=== PATIENT | male | born 1950 | race Caucasian/White ===

== ENCOUNTER 2020-02-23 09:57 | Outpatient (REF) | payer MEDICARE, OTHER, SELFPAY ==
[2020-02-23 11:42] LABS: Alanine Aminotransferase 19 U/L (0-40); Albumin Level 4.1 g/dL (3.5-5.0); Alkaline Phosphatase 89 U/L (39-117); Anion Gap 12 (12-20); Aspartate Amino Transferase 19 U/L (5-37); Bilirubin Total 0.6 mg/dL (0.0-1.0); Blood Urea Nitrogen 14 mg/dL (9-16); Calcium 8.7 mg/dL (8.4-10.2); Carbon Dioxide 31 mmol/L (22-29); Chloride 100 mmol/L (96-108); Cholesterol 151 mg/dL; Estimated Glomerular Filt Rate > 60; Glucose Fasting 89 mg/dL (60-99); HDL Cholesterol 55 mg/dL; LDL Cholesterol Calculated 73 mg/dl; Potassium 4.3 mmol/l (3.3-5.1); Sodium 139 mmol/L (135-145); Triglycerides 116 mg/dL
[2020-02-23 11:51] LABS: Prostate Specific Antigen Scr 0.46 ng/mL (<0.05-4.0); TSH reflex Free T4 1.28 mIU/mL (0.32-4.0)
== END 2020-02-23 09:58 | disposition home or self-care (01) ==
LOC: HO.HMGCLDS 09:57
PROVIDERS: PCP Nurse Practitioner Family; Visit Provider Nurse Practitioner Family
DX: Z12.5 Encounter for screening for malignant neoplasm of prostate (principal); I10 Essential (primary) hypertension; E78.5 Hyperlipidemia, unspecified
CPT/HCPCS: 80053; 80061; 84153; 84443

== ENCOUNTER 2020-03-28 13:18 | Outpatient (REF) | payer MEDICARE, OTHER, SELFPAY ==
[2020-03-28 14:24] LABS: Alanine Aminotransferase 17 U/L (0-40); Albumin Level 4.2 g/dL (3.5-5.0); Alkaline Phosphatase 79 U/L (39-117); Anion Gap 17 (12-20); Aspartate Amino Transferase 18 U/L (5-37); Bilirubin Total 0.5 mg/dL (0.0-1.0); Blood Urea Nitrogen 17 mg/dL (9-16); Calcium 9.2 mg/dL (8.4-10.2); Carbon Dioxide 25 mmol/L (22-29); Chloride 101 mmol/L (96-108); Estimated Glomerular Filt Rate > 60; Glucose Random 101 mg/dL (60-115); Potassium 4.2 mmol/l (3.3-5.1); Sodium 139 mmol/L (135-145); Total Protein 7.4 g/dL (6.5-8.0)
== END 2020-03-28 13:19 | disposition home or self-care (01) ==
LOC: HO.HMGCLDS 13:18
PROVIDERS: PCP Nurse Practitioner Family; Visit Provider Nurse Practitioner Family
DX: I10 Essential (primary) hypertension (principal); R79.89 Other specified abnormal findings of blood chemistry
CPT/HCPCS: 80053

== ENCOUNTER → 2020-11-19 08:23 | Outpatient (BNVA) | payer MEDICARE, OTHER, SELFPAY | PROVIDERS: PCP Nurse Practitioner Family; Visit Provider Nurse Practitioner Family | DX: G47.33 Obstructive sleep apnea (adult) (pediatric) (principal); Z99.89 Dependence on other enabling machines and devices | CPT/HCPCS: Q3014 ==

== ENCOUNTER 2020-11-20 15:25 | Emergency (ER) | payer MEDICARE, OTHER, SELFPAY ==
--- NOTE | ~2020-11-20 | XR_ITS ---
EXAMINATION: XR CHEST CLINICAL INFORMATION: Presyncope. COMPARISON: Chest x-ray August 01, 2019 TECHNIQUE: Frontal view of the chest was obtained. 11:34 PM FINDINGS: Lungs are clear. No pulmonary vascular congestion. There is no pleural effusion. The heart size is normal. The cardiac and mediastinal contours are normal. Levoscoliosis of upper thoracic spine. There are multilevel degenerative changes of dorsal spine. XR/XR chest 1V IMPRESSION: No acute abnormality of the chest.
--- NOTE | ~2020-11-20 | CT_ITS ---
EXAMINATION: CT ABDOMEN AND PELVIS WITHOUT CONTRAST CLINICAL INFORMATION: Diarrhea with history of Crohn's disease COMPARISON: 08/01/2019 TECHNIQUE: Multidetector volumetric imaging was performed from the superior aspect of the liver through the pubic symphysis. Sagittal and coronal reformatted images were obtained on the technologist's workstation. This CT examination was performed using dose optimization techniques as appropriate, variously including the following: *Automated exposure control *Adjustment of mA and/or kV according to patient size (this includes techniques or standardized protocols for targeted exams where dose is matched to indication/reason for exam; i.e. extremities or head) *Use of iterative reconstruction technique DLP: 827 mGy-cm FINDINGS: LUNG BASES: The visualized lung bases are unremarkable. LIVER, GALLBLADDER, AND BILIARY TREE: The liver is normal in size, shape, and attenuation. No focal hepatic lesion or biliary ductal dilatation is present. Status post cholecystectomy PANCREAS: Unremarkable. SPLEEN: Unremarkable. ADRENAL GLANDS: Unremarkable. KIDNEYS AND URETERS: Once again areas of low attenuation likely representing cystic change. BLADDER: Unremarkable. GASTROINTESTINAL TRACT: Diverticulosis in the colon. No evidence for diverticulitis. The appendix is within normal limits. The bowel pattern is nonobstructing. No evidence for edematous change. No suspicious fluid collection. ABDOMINAL WALL: No significant hernia is appreciated. LYMPH NODES: Normal. VASCULAR: Unremarkable. PELVIC VISCERA: Unremarkable. OSSEOUS STRUCTURES: Some mixed lucent sclerotic change in the femoral head on the right. Element of osteonecrosis would need to be considered versus degenerative cystic change. CT/CT abdomen pelvis wo con IMPRESSION: There is no acute finding in the abdomen pelvis. The bowel pattern is felt to be nonobstructing. There is no free fluid.. No convincing evidence for edematous bowel.
[2020-11-20 15:39] VITALS: BP 116/56; BP 118/56; PULSE 76; PULSE 78; RESP 18; TEMP 36.9; O2SAT 100; BMI 48.2
--- NOTE | 2020-11-20 16:29 | ED_ITS ---
HPI - Nausea/Vomiting/Diarrhea General Chief complaint: Nausea/Vomiting/Diarrhea Stated complaint: faint/nausea Time Seen by Provider: 11/20/20 15:36 Source: patient Mode of arrival: ambulatory Limitations: no limitations History of Present Illness HPI Narrative: Patient is a 70-year-old male with a past medical history of hypertension, PVD, Crohn's, iron deficiency, HLD, depression and a periodical limb movement disorder complaining of feeling faint, nausea and diarrhea. Patient does take balsalazide at home for his Crohn's, he states he is supposed to take 9 tablets per day but because the medication is so expensive he is only able to take half of that amount and he takes 4 tablets per day. He states that it has worked for him in the past. He states he has been eating and drinking and taking all of his normal medications up until today. He states approximately 4 hours ago, he was at the car repair shop any felt faint. They gave him a ride home and he felt very nauseous and sane to the whole way but made it home. He states he never lost consciousness but he has felt faint and sweaty and nauseous. He denies having any episodes of vomiting but states he had 1 episode of watery mucousy diarrhea this morning. He denies fevers chest pain shortness of breath or cough. He also takes Lasix daily. Related Data Home Medications Medication Instructions Recorded Confirmed balsalazide 750 mg capsule mg PO 02/26/20 11/19/20 bupropion HCl 150 mg 24 hr tablet, 150 mg PO BEDTIME 02/26/20 11/19/20 extended release fluoxetine 40 mg capsule mg PO 02/26/20 11/19/20 rosuvastatin 5 mg tablet 5 mg PO DAILY 02/26/20 11/19/20 Previous Rx's Medication Instructions Recorded hydrochlorothiazide 25 mg tablet 25 mg PO QAM #90 tab 06/24/20 tamsulosin 0.4 mg capsule 0.4 mg PO BID #180 cap 11/13/20 Allergies Allergy/AdvReac Type Severity Reaction Status Date / Time No Known Allergies Allergy Verified 11/19/20 08:25 [No Known Allergies*] oatmeal Allergy Unknown hives Uncoded 11/27/19 00:00 Review of Systems Review of Systems: Yes all other systems are reviewed and are negative PMFSH Past Medical History Medical History Crohn's disease Depression Dyslipidemia HTN (hypertension) Iron deficiency Left anterior fascicular block (LAFB) PLMD (periodic limb movement disorder) PVD (peripheral vascular disease) Venous insufficiency of both lower extremities Vertebral compression fracture Surgical History Status post endovenous radiofrequency ablation (RFA) of saphenous vein Family History Family History Father Cancer of prostate Mother Anxiety Sister Breast cancer Sister Nephritis Sister No problems noted. Sister No problems noted. Sister No problems noted. Daughter No problems noted. Daughter No problems noted. Daughter No problems noted. Brother No problems noted. Brother No problems noted. Brother Epilepsy Social History Social History Alcohol intake: never Advance Directives: No Advance Directives Information Provided: Yes Physical Exam Vital Signs: Vital Signs: Last Vital Signs Temp 98.3 F 11/20/20 22:51 Pulse 62 11/21/20 00:00 Resp 15 11/21/20 00:00 BP 93/37 L 11/21/20 00:00 Pulse Ox 98 11/21/20 00:00 Body Mass Index 48.2 Const: General: cooperative, healthy appearing, comfortable, no acute distress and well developed Nutritional Appearance: obese Orientation/consciousness: patient oriented x3 Limitations: no limitations HENMT: Head: Yes normal to inspection, Yes normocephalic and Yes atraumatic Ears: hearing grossly normal bilaterally General nose exam: Normal external nose present Face and sinus: Yes normal facial exam Eyes: General: appearance normal, both eyes and all related structures Pu pils: Equal, round and reactive pupils present EOM: EOMs intact bilaterally Neck: Neck: Yes normal visual inspection, Yes full ROM, Yes trachea midline and Yes supple Resp: Effort & Inspection: normal respiratory effort and able to speak in complete sentences Auscultation: clear to auscultation bilaterally Cardio: Rate: regular rate Rhythm: regular rhythm Heart sounds: normal S1 and S2 GI: Inspection: Yes obesity Palpation (GI): Soft to palpation and nontender Auscultation: Hyperactive bowel sounds present Skin: General skin exam: no rashes or lesions noted Neuro: General: patient oriented x3 Cranial nerves: Yes Equal, round and reactive pupils present Extrem: General: Yes normal to inspection, Yes full ROM and Yes no pedal edema Course Course Course Narrative: Patient is a 70-year-old male with a past medical history of hypertension, PVD, Crohn's, iron deficiency, HLD, depression and a periodical limb movement disorder complaining of feeling faint, nausea and diarrhea. VSS, patient well-appearing, abdomen slightly tender diffusely. Will order EKG, labs, troponin, BNP, UA, CXR and abdominal CT scan because of his history of Crohn's. Reevaluation(s) Reevaluation #1: Spoke with Dr. Olvera, reviewed results, T-wave inversions on EKG, patient was also bradycardic. T-wave inversions were present on patient's EKG in July of 2019. Our plan is to put patient on property assessment monitor and repeat troponin and EKG 3 hours from the original troponin. Discussed with patient and nurse. Patient now actively vomiting, BNP is just slightly elevated will give 1 L LR. Time: 19:00 Reevaluation #2: Second EKG similar to the 1st, 2nd troponin not elevated. Patient unable to complete orthostatics because he is unable to stand up due to his feeling faint and weak. Left message with hospitalist for admission Time: 22:30 Reevaluation #3: Patient states he is feeling slightly better after the IVF but unable to stand steadily or walk. Will continue LR on a drip at 01:50 per hour. Spoke with hospitalist, he states there is no reason for admission and he would be a case management patient. Time: 23:32 MDM - Nausea/Vomiting/Diarrhea Differential Diagnosis Differential diagnosis: Likely dehydration Lab Data Attestation: I reviewed the patient's lab results. Result diagrams: 11/20/20 17:02 11/20/20 17:02 Labs: Lab Results 11/20/20 11/20/20 11/20/20 Range/Units 16:49 17:02 17:02 WBC 8.4 (4.8-10.8) X10*3/uL RBC 4.28 L (4.60-5.80) X10*6/uL Hgb 13.1 L (14.0-18.0) g/dl Hct 38.6 L (42-52) % MCV 90.2 (80-98) fL MCH 30.6 (27.0-33.0) pg MCHC 33.9 (31.0-36.0) g/dl RDW 14.1 (11.0-16.0) % Plt Count 250 (160-400) X10*3/uL MPV 9.0 L (9.4-12.4) fL Immature Gran % (Auto) 0.6 H (0.0-0.4) % Neut % (Auto) 77.4 H (45-73) % Lymph % (Auto) 12.4 L (20-40) % Dewitt % (Auto) 7.2 (2-11) % Eos % (Auto) 1.7 (0-4) % Baso % (Auto) 0.7 (0-2) % Lymph # (Auto) 1.0 L (1.2-4.9) X10*3/uL Dewitt # (Auto) 0.6 (0.1-1.2) X10*3/uL Eos # (Auto) 0.1 (0.0-0.4) X10*3/uL Baso # (Auto) 0.1 (0.0-0.2) X10*3/uL Abs Immat Gran (auto) 0.05 H (0.00-0.03) X10*3/uL Absolute Neuts (auto) 6.5 (2.0-8.3) X10*3/uL Absolute Nucleated RBC 0.000 (0.0-0.012) X10*3/uL Nucleated RBC % (auto) 0.0 (0.0-0.2) /100WBC Sodium 139 (135-145) mmol/L Potassium 3.6 (3.3-5.1) mmol/L Chloride 105 (96-108) mmol/L Carbon Dioxide 23 (22-29) mmol/L Anion Gap 15 (12-20) BUN 12 (9-16) mg/dL Creatinine 0.87 (0.5-1.4) mg/dL Estim Creat Clear Calc 117.2 Estimated GFR > 60 Random Glucose 107 (60-115) mg/dL Calcium 9.1 (8.4-10.2) mg/dL Total Bilirubin 0.8 (0.0-1.0) mg/dL Direct Bilirubin 0.3 (0.0-0.5) mg/dL AST 21 (5-37) U/L ALT 20 (0-40) U/L Alkaline Phosphatase 78 (39-117) U/L Troponin I High Sens (<3.5-35.0) ng/L B-Natriuretic Peptide (<100) pg/mL Total Protein 6.8 (6.5-8.0) g/dL Albumin 3.9 (3.5-5.0) g/dL Lipase 27 (8-78) U/L Urine Color YELLOW Urine Appearance CLEAR Urine pH 8.5 H (5.0-8.0) Ur Specific Waterman 1.015 (1.005-1.025) Urine Protein NEG (NEG-TRACE) MG/DL Urine Glucose (UA) NEG (NEG) MG/DL Urine Ketones 15 (NEG) MG/DL Urine Blood NEG (NEG) Urine Nitrite NEG (NEG) Ur Leukocyte Esterase NEG (NEG) COVID-19 (SUPRIYA) (Negative) COVID-19 Clin Com 11/20/20 11/20/20 11/20/20 Range/Units 17:03 18:37 21:38 WBC (4.8-10.8) X10*3/uL RBC (4.60-5.80) X10*6/uL Hgb (14.0-18.0) g/dl Hct (42-52) % MCV (80-98) fL MCH (27.0-33.0) pg MCHC (31.0-36.0) g/dl RDW (11.0-16.0) % Plt Count (160-400) X10*3/uL MPV (9.4-12.4) fL Immature Gran % (Auto) (0.0-0.4) % Neut % (Auto) (45-73) % Lymph % (Auto) (20-40) % Dewitt % (Auto) (2-11) % Eos % (Auto) (0-4) % Baso % (Auto) (0-2) % Lymph # (Auto) (1.2-4.9) X10*3/uL Dewitt # (Auto) (0.1-1.2) X10*3/uL Eos # (Auto) (0.0-0.4) X10*3/uL Baso # (Auto) (0.0-0.2) X10*3/uL Abs Immat Gran (auto) (0.00-0.03) X10*3/uL Absolute Neuts (auto) (2.0-8.3) X10*3/uL Absolute Nucleated RBC (0.0-0.012) X10*3/uL Nucleated RBC % (auto) (0.0-0.2) /100WBC Sodium (135-145) mmol/L Potassium (3.3-5.1) mmol/L Chloride (96-108) mmol/L Carbon Dioxide (22-29) mmol/L Anion Gap (12-20) BUN (9-16) mg/dL Creatinine (0.5-1.4) mg/dL Estim Creat Clear Calc Estimated GFR Random Glucose (60-115) mg/dL Calcium (8.4-10.2) mg/dL Total Bilirubin (0.0-1.0) mg/dL Direct Bilirubin (0.0-0.5) mg/dL AST (5-37) U/L ALT (0-40) U/L Alkaline Phosphatase (39-117) U/L Troponin I High Sens < 3.5 4.0 (<3.5-35.0) ng/L B-Natriuretic Peptide 144 H (<100) pg/mL Total Protein (6.5-8.0) g/dL Albumin (3.5-5.0) g/dL Lipase (8-78) U/L Urine Color Urine Appearance Urine pH (5.0-8.0) Ur Specific Waterman (1.005-1.025) Urine Protein (NEG-TRACE) MG/DL Urine Glucose (UA) (NEG) MG/DL Urine Ketones (NEG) MG/DL Urine Blood (NEG) Urine Nitrite (NEG) Ur Leukocyte Esterase (NEG) COVID-19 (SUPRIYA) Negative (Negative) COVID-19 Clin Com See Note Imaging Data Abdominal x-ray: Attestation: I personally reviewed and interpreted this imaging study as follows: Radiologist's impression: [address] [address] [address] Scan Report Signed Patient: Jonah Bond MR#: [id number] : 1950 Acct:[id number] Age/Sex: 70 / M ADM Date: 11/20/20 Loc: HO.ED Attending Dr: Ordering Physician: Charity Lemon PA-C Date of Service: 11/20/20 Procedure(s): CT abdomen pelvis wo con Accession Number(s): [id number] cc: Charity Lemon PA-C~ EXAMINATION: CT ABDOMEN AND PELVIS WITHOUT CONTRAST? CLINICAL INFORMATION: Diarrhea with history of Crohn's disease? COMPARISON: 08/01/2019? TECHNIQUE: Multidetector volumetric imaging was performed from the superior aspect of the liver through the pubic symphysis. Sagittal and coronal reformatted images were obtained on the technologist's workstation.? This CT examination was performed using dose optimization techniques as appropriate, variously including the following: *Automated exposure control *Adjustment of mA and/or kV according to patient size (this includes techniques or standardized protocols for targeted exams where dose is matched to indication/reason for exam; i.e. extremities or head) *Use of iterative reconstruction technique DLP: 827 mGy-cm FINDINGS: LUNG BASES: The visualized lung bases are unremarkable.? LIVER, GALLBLADDER, AND BILIARY TREE: The liver is normal in size, shape, and attenuation. No focal hepatic lesion or biliary ductal dilatation is present. Status post cholecystectomy? PANCREAS: Unremarkable.? SPLEEN: Unremarkable.? ADRENAL GLANDS: Unremarkable.? KIDNEYS AND URETERS: Once again areas of low attenuation likely representing cystic change.? BLADDER: Unremarkable.? GASTROINTESTINAL TRACT: Diverticulosis in the colon. No evidence for diverticulitis. The appendix is within normal limits. The bowel pattern is nonobstructing. No evidence for edematous change. No suspicious fluid collection.? ABDOMINAL WALL: No significant hernia is appreciated.? LYMPH NODES: Normal. VASCULAR: Unremarkable. PELVIC VISCERA: Unremarkable.? OSSEOUS STRUCTURES: Some mixed lucent sclerotic change in the femoral head on the right. Element of osteonecrosis would need to be considered versus degenerative cystic change.? CT/CT abdomen pelvis wo con IMPRESSION: There is no acute finding in the abdomen pelvis. The bowel pattern is felt to be nonobstructing. There is no free fluid.. No convincing evidence for edematous bowel. Dictated By: LAZARO JACINTO MD Signed By: <Electronically signed by LAZARO JACINTO MD in OV> 11/20/20 1837 DD/ 1641 TD/TT:? Show Worker: ANI Chest x-ray: Attestation: I personally reviewed and interpreted this imaging study as follows: My impression: No acute abnormality Radiologist's impression: [address] [place] [address] XRay Report Signed Patient: Jonah Bond MR#: [id number] : 1950 Acct:[id number] Age/Sex: 70 / M ADM Date: 11/20/20 Loc: HO.ED Attending Dr: Ordering Physician: Charity Lemon PA-C Date of Service: 11/20/20 Procedure(s): XR chest 1V Accession Number(s): [id number] cc: Charity Lemon PA-C~ EXAMINATION: XR CHEST CLINICAL INFORMATION: Presyncope. COMPARISON: Chest x-ray August 01, 2019 TECHNIQUE: Frontal view of the chest was obtained. 11:34 PM FINDINGS: ?Lungs are clear. No pulmonary vascular congestion. There is no pleural effusion. The heart size is normal. The cardiac and mediastinal contours are normal. Levoscoliosis of upper thoracic spine. There are multilevel degenerative changes of dorsal spine.? ? XR/XR chest 1V IMPRESSION: No acute abnormality of the chest. ? Dictated By: EHSAN YORK MD Signed By: <Electronically signed by EHSAN YORK MD in OV> 11/20/20 2355 DD/ 2330 ECG Data Attestation: I personally reviewed and interpreted this ECG as follows: Ischemic changes: t wave inversions Interpretation: Sinus bradycardia Left axis deviation ST & T wave abnormality, consider lateral ischemia Prolonged QT Abnormal ECG When compared with ECG of 01-AUG-2019 14:13, Inverted T waves have replaced nonspecific T wave abnormality in Anterior leads ? Discharge Plan Discharge Clinical Impression: Pre-syncope, Unable to stand up Nausea & vomiting Qualifiers: Vomiting type: unspecified Vomiting Intractability: non-intractable Qualified Code(s): R11.2 - Nausea with vomiting, unspecified Patient Disposition: Home, Self-Care Prescriptions: No Action hydrochlorothiazide 25 mg tablet 25 mg PO QAM Qty: 90 RF: 0 tamsulosin 0.4 mg capsule 0.4 mg PO BID Qty: 180 RF: 0 bupropion HCl 150 mg tablet extended release 24 hr 150 mg PO BEDTIME RF: 0 rosuvastatin 5 mg tablet 5 mg PO DAILY RF: 0 fluoxetine 40 mg capsule PO RF: 0 balsalazide 750 mg capsule PO RF: 0
--- NOTE | 2020-11-20 16:41 | ECG_ITS ---
Test Reason : DIZZY Blood Pressure : / mmHG Vent. Rate : 055 BPM Atrial Rate : 055 BPM P-R Int : 164 ms QRS Dur : 102 ms QT Int : 508 ms P-R-T Axes : 051 -44 221 degrees QTc Int : 485 ms Sinus bradycardia Left axis deviation ST & T wave abnormality, consider lateral ischemia Prolonged QT Abnormal ECG When compared with ECG of 01-AUG-2019 14:13, Inverted T waves have replaced nonspecific T wave abnormality in Anterior leads Referred By: Charity Lemon Electronically Signed By:ELIO THOMAS
[2020-11-20 17:01] LABS: Glucose Urine UA NEG (NEG); Leukocyte Esterase Urine NEG (NEG); Nitrite Urine NEG (NEG); PH 8.5 (5.0-8.0); Specific Gravity - Urine 1.015 (1.005-1.025); Urine Blood NEG (NEG); Urine Ketones 15 MG/DL (NEG); Urine Protein NEG (NEG-TRACE)
[2020-11-20 17:02] LABS: Appearance Urine CLEAR; Color Urine YELLOW
[2020-11-20 17:08] LABS: MANUAL DIFF FLAG NO
[2020-11-20 17:09] LABS: Basophils Absolute Auto 0.1 X10*3/uL (0.0-0.2); Basophils Percent Auto 0.7 % (0-2); Eosinophils Absolute Auto 0.1 X10*3/uL (0.0-0.4); Eosinophils Percent Auto 1.7 % (0-4); Hematocrit 38.6 % (42-52); Hemoglobin 13.1 g/dl (14.0-18.0); Imm Gran Abs Auto 0.05 X10*3/uL (0.00-0.03); Imm Gran Pct Auto 0.6 % (0.0-0.4); Lymphocytes Percent Auto 12.4 % (20-40); Mean Corpuscular HGB Conc 33.9 g/dl (31.0-36.0); Mean Corpuscular Hemoglobin 30.6 pg (27.0-33.0); Mean Corpuscular Volume 90.2 fL (80-98); Monocytes Absolute Auto 0.6 X10*3/uL (0.1-1.2); Monocytes Percent Auto 7.2 % (2-11); Neutrophils Absolute Auto 6.5 X10*3/uL (2.0-8.3); Neutrophils Percent Auto 77.4 % (45-73); Platelet Count 250 X10*3/uL (160-400); Red Blood Count 4.28 X10*6/uL (4.60-5.80); Red Cell Distribution Width 14.1 % (11.0-16.0); White Blood Count 8.4 X10*3/uL (4.8-10.8)
[2020-11-20 17:41] LABS: Alanine Aminotransferase 20 U/L (0-40); Albumin Level 3.9 g/dL (3.5-5.0); Alkaline Phosphatase 78 U/L (39-117); Anion Gap 15 (12-20); Aspartate Amino Transferase 21 U/L (5-37); Bilirubin Direct 0.3 mg/dL (0.0-0.5); Bilirubin Total 0.8 mg/dL (0.0-1.0); Blood Urea Nitrogen 12 mg/dL (9-16); Calcium 9.1 mg/dL (8.4-10.2); Carbon Dioxide 23 mmol/L (22-29); Chloride 105 mmol/L (96-108); Creatinine Clr Calc Pharmacy 117.2; Estimated Glomerular Filt Rate > 60; Glucose Random 107 mg/dL (60-115); Lipase 27 U/L (8-78); Potassium 3.6 mmol/L (3.3-5.1); Sodium 139 mmol/L (135-145); Total Protein 6.8 g/dL (6.5-8.0)
[2020-11-20 17:48] LABS: B Type Natriuretic Peptide 144 pg/mL (<100); Troponin-I High Sensitivity < 3.5 ng/L (<3.5-35.0)
[2020-11-20 19:01] LABS: COVID-19 Test Negative (Negative)
[2020-11-20 19:33] VITALS: BP 101/50; PULSE 66
[2020-11-20 19:34] VITALS: BP 110/56; PULSE 82
[2020-11-20 20:00] VITALS: BP 112/72; PULSE 82; RESP 18; TEMP 36.9; O2SAT 100
--- NOTE | 2020-11-20 20:00 | ECG_ITS ---
Test Reason : GENERAL MEDICAL Blood Pressure : / mmHG Vent. Rate : 059 BPM Atrial Rate : 059 BPM P-R Int : 172 ms QRS Dur : 102 ms QT Int : 486 ms P-R-T Axes : 050 -36 185 degrees QTc Int : 481 ms Sinus bradycardia Left axis deviation ST & T wave abnormality, consider anterolateral ischemia Prolonged QT Abnormal ECG When compared with ECG of 20-NOV-2020 17:17, No significant change was found Referred By: Charity Lemon Electronically Signed By:ELIO THOMAS
--- NOTE | 2020-11-20 21:09 | PC.NURSE ---
EMS line changed over to hospital j loop without incident.
[2020-11-20 21:25] VITALS: BP 116/55; PULSE 59; RESP 8; TEMP 36.6; O2SAT 96
[2020-11-20 22:51] VITALS: BP 110/53; PULSE 58; RESP 9; TEMP 36.8; O2SAT 97
[2020-11-20] MEDS: Lactated Ringers 1,000 ML 999 ML IV (22:57)
[2020-11-21] VITALS (9 sets, daily range): BP systolic 93–114; BP diastolic 37–47; PULSE 60–69; RESP 12–17; TEMP 36.3–36.9; O2SAT 94–98
[2020-11-21] MEDS: Lactated Ringers 1,000 ML 150 ML IVCONT (00:27)
--- NOTE | 2020-11-21 06:37 | PC.NURSE ---
Patient walked with staff to the bathroom to use it. When he had finished, he pulled the cord because he became dizzy again. Patient able to walk back to his room with staff assistance and transferred to bed but reported he was still dizzy and nauseous.. Patient to meet with case management this morning.
--- NOTE | 2020-11-21 09:21 | PHA.MEDREC ---
Pharmacy Consult ? Medication Reconciliation Pharmacy has completed the medication reconciliation. Patient takes all medications in the morning with breakfast and all vitamins at dinner. Reports he get heartburn if he takes without food. Patient is not adherent to medication and does not take them as prescribed. These are the main issues: Balsalizide: prescribed as 750mg 3 cap TID but takes 750mg 4 cap in the AM (reports it is too expensive to take all 9 capsules) Tamsulosin: prescribed 0.4mg BID but takes 0.8mg QAPhan Boss, PharmD
--- NOTE | 2020-11-21 09:36 | PC.NURSE ---
PT STATES HE CONTINUES TO FEEL NAUSEATED AND WEAK. AWAITING PT EVAL
[2020-11-21] MEDS: Meclizine HCl 25 MG TABLET PO (10:18)
--- NOTE | 2020-11-21 10:25 | PC.NURSE ---
PT MEDICATED FOR DIZZINESS. HE WAS ABLE TO AMBULATE WITH A WALKER AND STAND BY ASSIST.
--- NOTE | 2020-11-21 12:17 | MHC.CM.ED ---
pt lives c his in their home, he reports that he is independent in his care . his can help him c his needs if he has any . this will include a ride home from the e.d. today. per PT eval - patient would benefit from home PT. a ref. per pt's request was made to [facility] for home PT. pt was accepted and they will see him in his home. dc plan is home c [facility]na for home PT. patient is aware of this . r.n. and provider in the e.d. are aware of this . cm to cont. to follow.
== END 2020-11-21 17:07 | disposition home or self-care (01) ==
PROVIDERS: Physician Assistant; Emergency Provider Internal Medicine; PCP Nurse Practitioner Family
DX: R55 Syncope and collapse (principal); I10 Essential (primary) hypertension; R11.2 Nausea with vomiting, unspecified; R19.7 Diarrhea, unspecified; R06.02 Shortness of breath; Z20.822 Contact with and (suspected) exposure to COVID-19; Z79.899 Other long term (current) drug therapy
CPT/HCPCS: 36415; 71045; 74176; 80048; 80076; 81003; 83690; 83880; 84484; 85025; 87635; 93005; 96361; 96374; 97162; 99284; 99285

== ENCOUNTER 2021-07-18 08:29 | Outpatient (REF) | payer MEDICARE, OTHER, SELFPAY ==
[2021-07-18 11:27] LABS: MANUAL DIFF FLAG NO
[2021-07-18 11:32] LABS: Basophils Absolute Auto 0.1 X10*3/uL (0.0-0.2); Basophils Percent Auto 1.4 % (0-2); Eosinophils Absolute Auto 0.4 X10*3/uL (0.0-0.4); Eosinophils Percent Auto 6.5 % (0-4); Hematocrit 39.1 % (42.0-52.0); Hemoglobin 12.8 g/dl (14.0-18.0); Imm Gran Abs Auto 0.02 X10*3/uL (0.00-0.03); Imm Gran Pct Auto 0.4 % (0.0-0.4); Lymphocytes Absolute Auto 1.8 X10*3/uL (1.2-4.9); Lymphocytes Percent Auto 31.2 % (20-40); Mean Corpuscular HGB Conc 32.7 g/dl (31.0-36.0); Mean Corpuscular Hemoglobin 30.6 pg (27.0-33.0); Mean Corpuscular Volume 93.5 fL (80.0-98.0); Mean Platelet Volume 9.6 fL (9.4-12.4); Monocytes Absolute Auto 0.5 X10*3/uL (0.1-1.2); Monocytes Percent Auto 8.4 % (2-11); Neutrophils Percent Auto 52.1 % (45-73); Platelet Count 292 X10*3/uL (160-400); Red Blood Count 4.18 X10*6/uL (4.60-5.80); White Blood Count 5.7 X10*3/uL (4.8-10.8)
[2021-07-18 12:13] LABS: Anion Gap 9 (12-20); Blood Urea Nitrogen 17 mg/dL (9-16); Calcium 9.8 mg/dL (8.4-10.2); Carbon Dioxide 32 mmol/L (22-29); Chloride 103 mmol/L (96-108); Estimated Glomerular Filt Rate > 60; Glucose Random 112 mg/dL (60-115); Potassium 4.1 mmol/L (3.3-5.1); Sodium 140 mmol/L (135-145)
== END 2021-07-18 08:30 | disposition home or self-care (01) ==
LOC: HO.HMGCLDS 08:29
PROVIDERS: Visit Provider Nurse Practitioner Family
DX: I10 Essential (primary) hypertension (principal); K50.10 Crohn's disease of large intestine without complications; M54.50 Low back pain, unspecified
CPT/HCPCS: 36415; 80048; 85025

== ENCOUNTER 2021-12-24 07:53 | Outpatient (REF) | payer MEDICARE, SELFPAY ==
[2021-12-24 11:23] LABS: MANUAL DIFF FLAG NO
[2021-12-24 11:29] LABS: Basophils Absolute Auto 0.1 X10*3/uL (0.0-0.2); Basophils Percent Auto 1.2 % (0-2); Eosinophils Absolute Auto 0.4 X10*3/uL (0.0-0.4); Eosinophils Percent Auto 7.2 % (0-4); Hematocrit 42.7 % (42.0-52.0); Hemoglobin 13.9 g/dl (14.0-18.0); Imm Gran Abs Auto 0.01 X10*3/uL (0.00-0.03); Imm Gran Pct Auto 0.2 % (0.0-0.4); Lymphocytes Absolute Auto 1.6 X10*3/uL (1.2-4.9); Lymphocytes Percent Auto 31.1 % (20-40); Mean Corpuscular HGB Conc 32.6 g/dl (31.0-36.0); Mean Platelet Volume 9.5 fL (9.4-12.4); Monocytes Absolute Auto 0.5 X10*3/uL (0.1-1.2); Monocytes Percent Auto 10.3 % (2-11); Neutrophils Absolute Auto 2.6 x10*3/uL (2.0-8.3); Platelet Count 292 X10*3/uL (160-400); Red Blood Count 4.64 X10*6/uL (4.60-5.80); Red Cell Distribution Width 14.2 % (11.0-16.0); White Blood Count 5.1 X10*3/uL (4.8-10.8)
[2021-12-24 11:54] LABS: Alanine Aminotransferase 18 U/L (0-40); Albumin Level 4.1 g/dL (3.5-5.0); Alkaline Phosphatase 74 U/L (39-117); Anion Gap 14 (12-20); Aspartate Amino Transferase 21 U/L (5-37); Bilirubin Total 0.5 mg/dL (0.0-1.0); Blood Urea Nitrogen 15 mg/dL (9-16); Calcium 9.5 mg/dL (8.4-10.2); Carbon Dioxide 28 mmol/L (22-29); Chloride 104 mmol/L (96-108); Cholesterol 142 mg/dL; Estimated Glomerular Filt Rate > 60; Glucose Fasting 95 mg/dL (60-99); HDL Cholesterol 56 mg/dL; LDL Cholesterol Calculated 72 mg/dl; Potassium 3.8 mmol/L (3.3-5.1); Sodium 142 mmol/L (135-145); Total Protein 6.9 g/dL (6.5-8.0); Triglycerides 74 mg/dL
[2021-12-24 12:04] LABS: Prostate Specific Antigen Scr 0.36 ng/mL (<0.05-4.0)
[2021-12-24 14:23] LABS: Appearance Urine Clear; Color Urine Yellow; Glucose Urine UA Negative (Negative); Leukocyte Esterase Urine Negative (Negative); Nitrite Urine Negative (Negative); PH 5.5 (5.0-9.0); Urine Blood Negative (Negative); Urine Ketones Negative (Negative); Urine Protein Negative (Neg-Trace)
== END 2021-12-24 07:54 | disposition home or self-care (01) ==
LOC: HO.HMGCLDS 07:53
PROVIDERS: PCP Nurse Practitioner Family; Visit Provider Nurse Practitioner Family
DX: I10 Essential (primary) hypertension (principal); Z12.5 Encounter for screening for malignant neoplasm of prostate; Z13.220 Encounter for screening for lipoid disorders; Z13.29 Encounter for screening for other suspected endocrine disorder
CPT/HCPCS: 36415; 80053; 80061; 81003; 84153; 84443; 85025

== ENCOUNTER 2021-12-31 13:54 | Outpatient (REF) | payer MEDICARE, SELFPAY ==
--- NOTE | ~2021-12-31 | XR_ITS ---
EXAMINATION: 1. RADIOGRAPHS LEFT TIBIA/FIBULAR 2. RADIOGRAPHS LEFT ANKLE 3. RADIOGRAPHS LEFT FOOT CLINICAL INFORMATION: Confusion COMPARISON: No similar prior imaging available for comparison. TECHNIQUE: 2 views of the left tibia/fibula, 3 views of the left ankle and 3 views of the left foot were obtained. FINDINGS: Nondisplaced fracture through the proximal fibula. No fracture of the tibia. Ankle mortise is maintained. Mild soft tissue swelling of the ankle. No gross ankle joint effusion. Bones of the midfoot are well aligned. No tarsal, metatarsal or phalangeal fracture. Mild calcified deformity of the first toe with mild associated degenerative changes of the first MTP joint. Mild degenerative changes of scattered IP joints with partial subluxation of the fifth PIP joint. XR/XR foot LT min 3V IMPRESSION: -Nondisplaced fracture through the proximal left fibula. -Mild soft tissue swelling of the left ankle without fracture. -Mild degenerative changes of the left foot without fracture.
--- NOTE | ~2021-12-31 | XR_ITS ---
EXAMINATION: 1. RADIOGRAPHS LEFT TIBIA/FIBULAR 2. RADIOGRAPHS LEFT ANKLE 3. RADIOGRAPHS LEFT FOOT CLINICAL INFORMATION: Confusion COMPARISON: No similar prior imaging available for comparison. TECHNIQUE: 2 views of the left tibia/fibula, 3 views of the left ankle and 3 views of the left foot were obtained. FINDINGS: Nondisplaced fracture through the proximal fibula. No fracture of the tibia. Ankle mortise is maintained. Mild soft tissue swelling of the ankle. No gross ankle joint effusion. Bones of the midfoot are well aligned. No tarsal, metatarsal or phalangeal fracture. Mild calcified deformity of the first toe with mild associated degenerative changes of the first MTP joint. Mild degenerative changes of scattered IP joints with partial subluxation of the fifth PIP joint. XR/XR tibia fibula LT 2V IMPRESSION: -Nondisplaced fracture through the proximal left fibula. -Mild soft tissue swelling of the left ankle without fracture. -Mild degenerative changes of the left foot without fracture.
--- NOTE | ~2021-12-31 | XR_ITS ---
EXAMINATION: 1. RADIOGRAPHS LEFT TIBIA/FIBULAR 2. RADIOGRAPHS LEFT ANKLE 3. RADIOGRAPHS LEFT FOOT CLINICAL INFORMATION: Confusion COMPARISON: No similar prior imaging available for comparison. TECHNIQUE: 2 views of the left tibia/fibula, 3 views of the left ankle and 3 views of the left foot were obtained. FINDINGS: Nondisplaced fracture through the proximal fibula. No fracture of the tibia. Ankle mortise is maintained. Mild soft tissue swelling of the ankle. No gross ankle joint effusion. Bones of the midfoot are well aligned. No tarsal, metatarsal or phalangeal fracture. Mild calcified deformity of the first toe with mild associated degenerative changes of the first MTP joint. Mild degenerative changes of scattered IP joints with partial subluxation of the fifth PIP joint. XR/XR ankle LT min 3V IMPRESSION: -Nondisplaced fracture through the proximal left fibula. -Mild soft tissue swelling of the left ankle without fracture. -Mild degenerative changes of the left foot without fracture.
== END 2021-12-31 13:55 | disposition home or self-care (01) ==
LOC: HO.HMGCX 13:54
PROVIDERS: PCP Nurse Practitioner Family; Visit Provider Internal Medicine
DX: S80.12XA Contusion of left lower leg, initial encounter (principal); S93.402A Sprain of unspecified ligament of left ankle, initial encounter
CPT/HCPCS: 73590; 73610; 73630; 99202

== ENCOUNTER 2022-01-07 | Outpatient (REF) | payer MEDICARE, SELFPAY ==
--- NOTE | ~2022-01-07 | XR_ITS ---
EXAMINATION: XR TIBIA AND FIBULA, LEFT CLINICAL INFORMATION: Pain left leg. COMPARISON: Left tibia and fibula 12/31/2021 TECHNIQUE: AP and lateral views of the left tibia and fibula were obtained. FINDINGS: There is an oblique fracture proximal fibula with minimal displacement. No additional fracture seen. The soft tissues are normal. XR/XR tibia fibula LT 2V IMPRESSION: Minimally displaced oblique fracture left proximal fibula. No additional fractures seen. No major change.
== END 2022-01-07 00:01 | disposition home or self-care (01) ==
LOC: HO.HOSX
PROVIDERS: Visit Provider Physician Assistant
DX: S82.832D Other fracture of upper and lower end of left fibula, subsequent encounter for closed fracture with routine healing (principal)
CPT/HCPCS: 73590; 99212

== ENCOUNTER 2022-01-19 06:35 | Outpatient (REF) | payer MEDICARE, SELFPAY ==
--- NOTE | ~2022-01-19 | XR_ITS ---
EXAMINATION: XR TIBIA AND FIBULA, LEFT CLINICAL INFORMATION: Pain. COMPARISON: Radiograph of the left tibia/fibula 01/07/2022. TECHNIQUE: AP and lateral views of the left tibia and fibula were obtained. FINDINGS: Stable appearance of an obliquely oriented proximal fibular fracture. No significant osseous bridging or callus formation. No other injuries. Diffuse nonspecific soft tissue swelling is noted. XR/XR tibia fibula LT 2V IMPRESSION: Stable appearance of an obliquely oriented proximal fibular fracture. No significant osseous bridging or callus formation.
== END 2022-01-19 06:36 | disposition home or self-care (01) ==
LOC: HO.HOSX 06:35
PROVIDERS: Visit Provider Physician Assistant
DX: M79.605 Pain in left leg (principal)
CPT/HCPCS: 73590; 99212

== ENCOUNTER → 2022-01-19 13:59 | Outpatient (BNVA) | payer MEDICARE, SELFPAY | PROVIDERS: PCP Nurse Practitioner Family; Visit Provider Physician Assistant | DX: S82.832D Other fracture of upper and lower end of left fibula, subsequent encounter for closed fracture with routine healing (principal) | CPT/HCPCS: 99212 ==

== ENCOUNTER 2022-02-16 06:26 | Outpatient (REF) | payer MEDICARE, SELFPAY ==
--- NOTE | ~2022-02-16 | XR_ITS ---
EXAMINATION: XR TIBIA AND FIBULA, LEFT CLINICAL INFORMATION: Fracture COMPARISON: Previous x-ray most recent December 2021 TECHNIQUE: AP and lateral views of the left tibia and fibula were obtained. FINDINGS: There is increasing bony callus formation seen at the oblique minimally displaced fracture of the proximal shaft of the fibula. No other fracture is seen. Increasing soft tissue calcification or ossification adjacent to the posterior malleolus suggestive of changes related to trauma. Soft tissues are otherwise unremarkable. XR/XR tibia fibula LT 2V IMPRESSION: Healing proximal fibular shaft fracture. Increasing soft tissue calcification or ossification adjacent to the posterior malleolus suggestive of changes related to trauma.
== END 2022-02-16 06:27 | disposition home or self-care (01) ==
LOC: HO.HOSX 06:26
PROVIDERS: Visit Provider Physician Assistant
DX: M79.605 Pain in left leg (principal)
CPT/HCPCS: 73590; 99212

== ENCOUNTER → 2022-02-16 14:44 | Outpatient (BNVA) | payer MEDICARE, SELFPAY | PROVIDERS: PCP Nurse Practitioner Family; Visit Provider Physician Assistant | DX: S82.832D Other fracture of upper and lower end of left fibula, subsequent encounter for closed fracture with routine healing (principal) | CPT/HCPCS: 99212 ==

== ENCOUNTER 2022-05-20 08:03 | Outpatient (REF) | payer MEDICARE, OTHER, SELFPAY ==
[2022-05-20 11:13] LABS: MANUAL DIFF FLAG NO
[2022-05-20 11:22] LABS: Basophils Absolute Auto 0.1 X10*3/uL (0.0-0.2); Basophils Percent Auto 1.8 % (0-2); Eosinophils Absolute Auto 0.4 X10*3/uL (0.0-0.4); Hematocrit 39.4 % (42.0-52.0); Hemoglobin 12.8 g/dl (14.0-18.0); Imm Gran Abs Auto 0.02 X10*3/uL (0.00-0.03); Imm Gran Pct Auto 0.5 % (0.0-0.4); Lymphocytes Absolute Auto 1.3 X10*3/uL (1.2-4.9); Mean Corpuscular HGB Conc 32.5 g/dl (31.0-36.0); Mean Corpuscular Hemoglobin 30.5 pg (27.0-33.0); Mean Corpuscular Volume 93.8 fL (80.0-98.0); Mean Platelet Volume 9.9 fL (9.4-12.4); Monocytes Absolute Auto 0.5 X10*3/uL (0.1-1.2); Monocytes Percent Auto 11.7 % (2-11); Neutrophils Absolute Auto 2.1 x10*3/uL (2.0-8.3); Platelet Count 260 X10*3/uL (160-400); Red Cell Distribution Width 14.2 % (11.0-16.0); White Blood Count 4.4 X10*3/uL (4.8-10.8)
[2022-05-20 11:56] LABS: Alanine Aminotransferase 18 U/L (0-40); Albumin Level 3.8 g/dL (3.5-5.0); Alkaline Phosphatase 85 U/L (39-117); Aspartate Amino Transferase 17 U/L (5-37); Bilirubin Direct 0.3 mg/dL (0.0-0.5); Bilirubin Total 0.7 mg/dL (0.0-1.0); C Reactive Protein 0.27 mg/dL (< or = 0.50); Total Protein 6.3 g/dL (6.5-8.0)
[2022-05-20 12:01] LABS: Erythrocyte Sedimentation Rate 14 MM/HR (0-15)
== END 2022-05-20 08:04 | disposition home or self-care (01) ==
LOC: HO.HMGCLDS 08:03
PROVIDERS: PCP Nurse Practitioner Family; Visit Provider Internal Medicine
DX: K50.10 Crohn's disease of large intestine without complications (principal); K62.5 Hemorrhage of anus and rectum; R19.7 Diarrhea, unspecified
CPT/HCPCS: 36415; 80076; 85025; 85652; 86140

== ENCOUNTER 2022-05-21 08:56 | Outpatient (REF) | payer MEDICARE, OTHER, SELFPAY ==
[2022-05-21 11:12] LABS: MANUAL DIFF FLAG NO
[2022-05-21 11:27] LABS: Basophils Absolute Auto 0.1 X10*3/uL (0.0-0.2); Basophils Percent Auto 1.2 % (0-2); Eosinophils Absolute Auto 0.3 X10*3/uL (0.0-0.4); Eosinophils Percent Auto 7.4 % (0-4); Hematocrit 38.1 % (42.0-52.0); Hemoglobin 12.3 g/dl (14.0-18.0); Imm Gran Abs Auto 0.01 X10*3/uL (0.00-0.03); Imm Gran Pct Auto 0.2 % (0.0-0.4); Lymphocytes Absolute Auto 1.2 X10*3/uL (1.2-4.9); Lymphocytes Percent Auto 27.6 % (20-40); Mean Corpuscular HGB Conc 32.3 g/dl (31.0-36.0); Mean Corpuscular Hemoglobin 30.1 pg (27.0-33.0); Mean Corpuscular Volume 93.2 fL (80.0-98.0); Mean Platelet Volume 9.9 fL (9.4-12.4); Monocytes Absolute Auto 0.4 X10*3/uL (0.1-1.2); Monocytes Percent Auto 10.6 % (2-11); Neutrophils Absolute Auto 2.2 x10*3/uL (2.0-8.3); Platelet Count 249 X10*3/uL (160-400); Red Blood Count 4.09 X10*6/uL (4.60-5.80); Red Cell Distribution Width 14.1 % (11.0-16.0); White Blood Count 4.2 X10*3/uL (4.8-10.8)
[2022-05-21 11:32] LABS: Appearance Urine Clear; Color Urine Yellow; Glucose Urine UA Negative (Negative); Leukocyte Esterase Urine Negative (Negative); Nitrite Urine Negative (Negative); Specific Gravity - Urine 1.025 (1.005-1.025); Urine Blood Negative (Negative); Urine Ketones Negative (Negative); Urine Protein Negative (Neg-Trace)
[2022-05-21 12:00] LABS: Alanine Aminotransferase 18 U/L (0-40); Albumin Level 3.7 g/dL (3.5-5.0); Alkaline Phosphatase 78 U/L (39-117); Anion Gap 13 (12-20); Aspartate Amino Transferase 17 U/L (5-37); Bilirubin Total 0.7 mg/dL (0.0-1.0); Blood Urea Nitrogen 17 mg/dL (9-16); Calcium 8.9 mg/dL (8.4-10.2); Carbon Dioxide 23 mmol/L (22-29); Chloride 109 mmol/L (96-108); Cholesterol 123 mg/dL; Estimated Glomerular Filt Rate > 60; Glucose Fasting 94 mg/dL (60-99); HDL Cholesterol 51 mg/dL; LDL Cholesterol Calculated 64 mg/dl; Potassium 4.4 mmol/L (3.3-5.1); Sodium 141 mmol/L (135-145); Total Protein 6.2 g/dL (6.5-8.0); Triglycerides 40 mg/dL
[2022-05-21 12:05] LABS: TSH reflex Free T4 1.99 uIU/mL (0.32-4.0)
[2022-05-21 12:23] LABS: Leukocytes Stool Qualitative NEGATIVE (NEGATIVE)
[2022-05-21 13:13] LABS: Adenovirus F 40/41 Not Detected (Not Detect.); Astrovirus Not Detected (Not Detect.); Campylobacter Not Detected (Not Detect.); Cryptosporidium Not Detected (Not Detect.); Cyclospora cayetanensis Not Detected (Not Detect.); E. coli EAEC Not Detected (Not Detect.); E. coli EPEC Not Detected (Not Detect.); E. coli ETEC Not Detected (Not Detect.); E. coli STEC Not Detected (Not Detect.); Entamoeba histolytica Not Detected (Not Detect.); Giardia lamblia Not Detected (Not Detect.); Norovirus GI/GII Not Detected (Not Detect.); Plesiomonas shigelloides Not Detected (Not Detect.); Rotavirus A Not Detected (Not Detect.); Salmonella Not Detected (Not Detect.); Sapovirus Not Detected (Not Detect.); Shigella sp./EIEC Not Detected (Not Detect.); Vibrio Not Detected (Not Detect.); Vibrio Cholerae Not Detected (Not Detect.); Yersinia enterocolitica Not Detected (Not Detect.)
[2022-05-27 21:59] LABS: Calprotectin, Fecal 105 mcg/g
== END 2022-05-21 08:57 | disposition home or self-care (01) ==
LOC: HO.HMGCLDS 08:56
PROVIDERS: Internal Medicine; PCP Nurse Practitioner Family; Visit Provider Nurse Practitioner Family
DX: R42 Dizziness and giddiness (principal); E78.5 Hyperlipidemia, unspecified; F41.9 Anxiety disorder, unspecified
CPT/HCPCS: 36415; 80053; 80061; 81003; 83993; 84443; 85025; 87493; 87507; 89055

== ENCOUNTER 2022-06-24 09:17 | Day surgery (SDC) | payer MEDICARE, OTHER, SELFPAY ==
--- NOTE | 2022-06-23 11:54 | P.CONAN_ITS ---
Documented by User: Aliza Yuen NP 06/23/22 12:00 HPI - Anesthesia Eval Consult details Narrative: 72yo M for Colonoscopy Afib. To start blood thinner after colonosocpy per [facility], Dr Martha BUENROSTRO Active Problems Active Problems: All Active Problems (Updated 03/17/22 @ 18:38 by Emile Chamorro [facility]) Orthostatic hypotension (Acute) New onset a-fib (Acute) Dizziness (Acute) Fracture of left proximal fibula (Acute) Left ankle sprain (Acute) Contusion of left lower leg (Acute) Major depression, recurrent (Acute) Screening PSA (prostate specific antigen) (Acute) Low back pain (Acute) Crohn's colitis (Acute) Foreign body of finger of right hand (Acute) Dehydration (Acute) HTN (hypertension) (Acute) Breast mass in male (Acute) RANULFO (obstructive sleep apnea) (Acute) Past Medical History Medical History (Updated 06/23/22 @ 11:57 by Aliza Yuen NP) BPH (benign prostatic hyperplasia) Crohn's disease Depression Dyslipidemia Foreign body of finger of right hand HTN (hypertension) Iron deficiency Left anterior fascicular block (LAFB) New onset a-fib RANULFO (obstructive sleep apnea) PLMD (periodic limb movement disorder) PVD (peripheral vascular disease) Venous insufficiency of both lower extremities Vertebral compression fracture Family History Family History Father Cancer of prostate Mother Anxiety Sister Breast cancer Sister Nephritis Sister No problems noted. Sister No problems noted. Sister No problems noted. Daughter Substance use disorder Mental health disorder Daughter No problems noted. Daughter No problems noted. Brother No problems noted. Brother No problems noted. Brother Epilepsy Paternal Grandfather Substance use disorder Surgical History Surgical History (Updated 06/23/22 @ 11:57 by Aliza Yuen NP) History of cholecystectomy Status post endovenous radiofrequency ablation (RFA) of saphenous vein Social History Social History Housing: House Alcohol intake: never Patient Tobacco Use Status: Former Tobacco user Quit Date: 1964 Years Smoked: 50 years ago e-Cigarette/Vaping Use: Never Used Second Hand Smoke Exposure: No Use of substances other than those prescribed or required for medical reasons: No Are you DNR?: No Advance Directives: No Advance Directives Information Provided: Yes service: Yes Current occupational status: retired Cognitive needs: No Hearing needs: No Vision needs: No Meds Allergies Allergy/AdvReac Type Severity Reaction Status Date / Time oatmeal Allergy Unknown hives Uncoded 03/17/22 14:09 Home Medications Medication Instructions Recorded Confirmed Last Taken Type bupropion HCl 150 mg 24 hr tablet, 150 mg PO DAILY 02/26/20 06/24/22 11/20/20 History extended release fluoxetine 40 mg capsule 80 mg PO DAILY 02/26/20 06/24/22 11/20/20 History rosuvastatin 5 mg tablet 5 mg PO DAILY 02/26/20 06/24/22 11/20/20 History Probiotic 1 tab PO DAILY@179911/21/20 06/24/22 11/20/20 History calcium 600 mg capsule 600 mg PO DAILY@179911/21/20 06/24/22 11/20/20 History cholecalciferol (vitamin D3) 25 25 mcg PO DAILY@179911/21/20 06/24/22 11/20/20 History mcg (1,000 unit) tablet ferrous sulfate 325 mg (65 mg 325 mg PO DAILY@179911/21/20 06/24/22 06/17/22 History iron) tablet (Iron (ferrous sulfate)) multivitamin 1 tab PO DAILY@179911/21/20 06/24/22 11/20/20 History bupropion HCl 300 mg 24 hr tablet, 300 mg PO BEDTIME 12/16/21 06/24/22 Unknown History extended release mesalamine 4.8 g PO DAILY 06/24/22 06/24/22 Unknown History Exam Exam Date and Time: June 23, 2022 1154 Pertinent Lab Results Pertinent Lab Results: Laboratory Tests 05/21/22 05/21/22 09:04 09:40 WBC 4.2 L Hgb 12.3 L Hct 38.1 L Plt Count 249 Sodium 141 Potassium 4.4 Chloride 109 H Carbon Dioxide 23 BUN 17 H Creatinine 0.86 Narrative Narrative: EKG 02/2022 at cardiology afib @ 84 LAFB Borderline IVCD Nonspecific anterior T wave abn Assessment and Plan Assessment Anesthesia Assessment: Chart Reviewed Documented by User: Loli Morris MD 06/24/22 10:26 PMF Past Medical History Medical History (Updated 06/23/22 @ 11:57 by Aliza Yuen NP) BPH (benign prostatic hyperplasia) Crohn's disease Depression Dyslipidemia Foreign body of finger of right hand HTN (hypertension) Iron deficiency Left anterior fascicular block (LAFB) New onset a-fib RANULFO (obstructive sleep apnea) PLMD (periodic limb movement disorder) PVD (peripheral vascular disease) Venous insufficiency of both lower extremities Vertebral compression fracture Family History Family History Father Cancer of prostate Mother Anxiety Sister Breast cancer Sister Nephritis Sister No problems noted. Sister No problems noted. Sister No problems noted. Daughter Substance use disorder Mental health disorder Daughter No problems noted. Daughter No problems noted. Brother No problems noted. Brother No problems noted. Brother Epilepsy Paternal Grandfather Substance use disorder Family history of problems with anesthesia: No Surgical History Surgical History (Updated 06/23/22 @ 11:57 by Aliza Yuen NP) History of cholecystectomy Status post endovenous radiofrequency ablation (RFA) of saphenous vein History of Problems with Anesthesia: No Social History Social History Housing: House Alcohol intake: never Patient Tobacco Use Status: Former Tobacco user Quit Date: 1963 Years Smoked: 50 years ago e-Cigarette/Vaping Use: Never Used Second Hand Smoke Exposure: No Use of substances other than those prescribed or required for medical reasons: No Are you DNR?: No Advance Directives: No Advance Directives Information Provided: Yes service: Yes Current occupational status: retired Cognitive needs: No Hearing needs: No Vision needs: No Meds Allergies Allergy/AdvReac Type Severity Reaction Status Date / Time oatmeal Allergy Unknown hives Uncoded 03/17/22 14:09 Home Medications Medication Instructions Recorded Confirmed Last Taken Type bupropion HCl 150 mg 24 hr tablet, 150 mg PO DAILY 02/26/20 06/24/22 11/20/20 History extended release fluoxetine 40 mg capsule 80 mg PO DAILY 02/26/20 06/24/22 11/20/20 History rosuvastatin 5 mg tablet 5 mg PO DAILY 02/26/20 06/24/22 11/20/20 History Probiotic 1 tab PO DAILY@1800 11/21/20 06/24/22 11/20/20 History calcium 600 mg capsule 600 mg PO DAILY@179911/21/20 06/24/22 11/20/20 History cholecalciferol (vitamin D3) 25 25 mcg PO DAILY@179911/21/20 06/24/22 11/20/20 History mcg (1,000 unit) tablet ferrous sulfate 325 mg (65 mg 325 mg PO DAILY@179911/21/20 06/24/22 06/17/22 History iron) tablet (Iron (ferrous sulfate)) multivitamin 1 tab PO DAILY@179911/21/20 06/24/22 11/20/20 History bupropion HCl 300 mg 24 hr tablet, 300 mg PO BEDTIME 12/16/21 06/24/22 Unknown History extended release mesalamine 4.8 g PO DAILY 06/24/22 06/24/22 Unknown History Exam Airway Mallampati Class: II TM Dist: >3cm Neck ROM: Full Denture: Upper and Lower Heart: rr Lungs: cta Assessment and Plan Final Anesthetic Review Family History of Problems with Anesthesia: No History of Problems with Anesthesia: No NPO: Yes ASA Class: III Final Preanesthetic Review: No Changes in Pt Med Stat, Meds/Allgs Chart Reviewed, Consent Obtained/Reviewed and Anes Risks/Benef Reviewed Patient Risk: Low Procedure Risk: Low Anesthetic Plan Anesthetic Plan: MAC: Disposition: Standard PACU
--- OUTSIDE RECORDS SUMMARY | 2022-06-24 09:19 | XMS_ITS ---
Author Name GuanSteven Address [address] [place] [address] Organization [facility] Address [address] [place] [address] Care Team Providers Care Java Application Developer Name Role Phone Steven Guan Unavailable [phone] PROBLEMS Type Condition ICD9-CM Code EOC26-NS Code Onset Dates Condition Status SNOMED Code Problem Diarrhea, unspecified type R19.7 Active 11110726 Problem Rectal bleeding K62.5 Active 69260561 Problem Crohns disease without complication, unspecified gastrointestinal tract location K50.90 Active 87850229 Problem Crohn''s disease of large intestine without complication K50.10 Active 7236852 ALLERGIES No Known Allergies ENCOUNTERS Encounter Location Date Diagnosis [facility] Outpatient [address] [place] [phone] May, [facility] [address] [place] [phone] May, [facility] [address] [place] [phone] Apr, Crohn''s disease of large intestine without complication K50.10 ; Rectal bleeding K62.5 and Diarrhea, unspecified type R19.7 [facility] [address] [place] [phone] Mar, [facility] Surgery Center [address] [place] [phone] Feb, [facility] [address] [place] [phone] Feb, [facility] [address] [place] [address] Jun, [facility] [address] [place] [address] Mar, [facility] [address] [place] [address] May, Crohn''s disease of large intestine without complication K50.10 [facility] [address] [place] [address] Dec, [facility] [address] [place] [address] Nov, Crohns disease without complication, unspecified gastrointestinal tract location K50.90 IMMUNIZATIONS Vaccine Route Administration Date Status Influenza Unknown May 19, 2022 Administered Influenza Unknown Nov 27, 2017 Administered SOCIAL HISTORY Qualifiers Date Never Smoker REASON FOR REFERRAL FUNCTIONAL STATUS PLAN OF CARE Activity Details VITAL SIGNS Weight 246 lbs 2022-05-19 Weight 245 lbs 2018-06-14 Weight 244 lbs 2017-12-16 Height 70 in 2022-05-19 Height 70 in 2018-06-14 Height 70 in 2017-12-16 BMI 35.29 kg/m2 2022-05-19 BMI 35.15 kg/m2 2018-06-14 BMI 35.01 kg/m2 2017-12-16 Heart Rate 68 /min 2017-12-16 Temperature 97.1 degrees Fahrenheit Blood pressure systolic 000 mm Hg Blood pressure diastolic 00 mm Hg 2022-04 MEDICATIONS Medication Instructions Dosage Frequency Start Date End Date Duration Status FLUoxetine HCl 40 MG Orally Once a day 2 capsule 24h Active Antacid 500 MG Orally Once a day 1 tablet 24h Active Canasa 1000 MG Rectal Once a day 1 suppository at bedtime 24h Not-Taki ng Metoprolol Succinate ER 25 MG TAKE 1 TABLET BY MOUTH ONCE DAILY IN THE MORNING . DO NOT CRUSH OR CHEW Diagnosis Unavailable 30 Active Mesalamine 1.2 GM Orally Once a day 4 24h Active rOPINIRole HCl 0.25 MG Orally Three times a day 1 tablet 8h Active Tamsulosin HCl 0.4 MG Orally Once a day 1 capsule 24h Active Probiotic 250 MG Orally once a day 1 capsule 24h Active Iron 325 (65 Fe) MG Orally Once a day 1 tablet 24h Active Balsalazide Disodium 750 MG Orally TID 3 8h Mar, 30 day(s) Not-Taki ng buPROPion HCl ER (XL) 150 MG Orally Once a day 1 tablet in the morning 24h Active Multi Vitamin/Minera ls - Orally QD 1 24h Active PROCEDURES Procedure Date Ordered Result Body Site TOBACCO NON-USER June 14, 2018 DOC MEDS VERIFIED W/PT OR RE June 14, 2018 BMI >=30 CALCUATE W/FOLLOWUP Dec 16, 2017 COLORECTAL CA SCREEN DOC REV Dec 16, 2017 DOC MEDS VERIFIED W/PT OR RE May 19, 2022 COLORECTAL CA SCREEN DOC REV May 19, 2022 DOC MEDS VERIFIED W/PT OR RE Dec 16, 2017 COLORECTAL CA SCREEN DOC REV June 14, 2018 BP SCR NOT PRFRM REC REASON NOS May 19, 2022 FLU IMMUNIZE ORDER/ADMIN Dec 16, 2017 BP SCR PRFRM RCMDD DEFIND SCR INTVL June 14, 2018 TOBACCO NON-USER May 19, 2022 BP SCR PRFRM RCMDD DEFIND SCR INTVL Dec 16, 2017 TOBACCO NON-USER Dec 16, 2017 RESULTS Name Result Date Reference Range Leukocytes Stool Qualitative 2022-05-21 Leukocytes Stool Qualitative NEGATIVE NEGATIVE CDiff Gene PCR 2022-05-21 CDiff Gene PCR TNP Negative Complete Blood Count Auto Diff 2022-05-20 White Blood Count 4.4 4.8-10.8 Red Blood Count 4.20 4.60-5.80 Hemoglobin 12.8 14.0-18.0 Hematocrit 39.4 42.0-52.0 Mean Corpuscular Volume 93.8 80.0 -98.0 Mean Corpuscular Hemoglobin 30.5 27.0-33.0 Mean Corpuscular HGB Conc 32.5 31 .0-36.0 Red Cell Distribution Width 14.2 11.0-16.0 Platelet Count 260 160-400 Mean Platelet Volume 9.9 9.4-12. 4 Neutrophils Percent Auto 48.0 45- 73 Imm Gran Pct Auto 0.5 0.0-0.4 Lymphocytes Percent Auto 30.0 20- 40 Monocytes Percent Auto 11.7 2-11 Eosinophils Percent Auto 8.0 0-4 Basophils Percent Auto 1.8 0-2 NRBC Pct Auto 0.0 0.0-0.2 Neutrophils Absolute Auto 2.1 2. 0-8.3 Imm Gran Abs Auto 0.02 0.00-0.03 Lymphocytes Absolute Auto 1.3 1. 2-4.9 Monocytes Absolute Auto 0.5 0.1- 1.2 Eosinophils Absolute Auto 0.4 0. 0-0.4 Basophils Absolute Auto 0.1 0.0- 0.2 NRBC Abs Auto 0.000 0.0-0.012 Erythrocyte Sedimentation Rate 2022-05-20 Erythrocyte Sedimentation Rate 14 0-15 Liver Panel 2022-05-20 Bilirubin Total 0.7 0.0-1.0 Bilirubin Direct 0.3 0.0-0.5 Aspartate Amino Transferase 17 5-37 Alanine Aminotransferase 18 0-4 0 Total Protein 6.3 6.5-8.0 Albumin Level 3.8 3.5-5.0 Alkaline Phosphatase 85 39-117 C Reactive Protein 2022-05-20 C Reactive Protein 0.27 < or = 0. 50 Calprotectin, Fecal 2022-05-21 Calprotectin, Fecal 105 GI PANEL 2022-05-21 Campylobacter Not Detected Not Detect. Plesiomonas shigelloides Not Detected Not Detect. Salmonella Not Detected Not Detect. Vibrio Not Detected Not Detect. Vibrio Cholerae Not Detected Not Detect. Yersinia enterocolitica Not Detected Not Detect. E. coli EAEC Not Detected Not Detect. E. coli EPEC Not Detected Not Detect. E. coli ETEC Not Detected Not Detect. E. coli STEC Not Detected Not Detect. E. coli O157 Not applicable Not Detect. Shigella sp./EIEC Not Detected Not Detect . Cryptosporidium Not Detected Not Detect. Cyclospora cayetanensis Not Detected Not Detect. Entamoeba histolytica Not Detected Not De tect. Giardia lamblia Not Detected Not Detect. Adenovirus F 40/41 Not Detected Not Detec t. Astrovirus Not Detected Not Detect. Norovirus GI/GII Not Detected Not Detect. Rotavirus A Not Detected Not Detect. Sapovirus Not Detected Not Detect. REASON FOR VISIT crohn's,rectal bleeding,diarrhea, ? on a blood thinner, Patient presents today for rectal bleeding screening colon, didnt have any of the balsazide , script, Balsalazide is too expensive, Refill - Balsalazide , Patient presents today for 6 month f/u, patient presents today for CROHN'S DISEASE Insurance Providers Health Insurance Type Health Plan Insurance Address Health Plan Insurance Phone Health Plan Insurance Name Health Plan Coverage Dates Member ID Patient Relationship to Subscriber Patient Address Patient Phone Patient Name Patient Date of Subscriber ID Subscriber Name Subscriber Date of Group No [employer] [address] [place] GOMEZ [phone] [employer] self [employer] RONDA [id number] MEDICARE OF [place] [address] [facility] [address] MED[place] OF [place] self [place] [id number]
--- OUTSIDE RECORDS SUMMARY | 2022-06-24 09:19 | XMS_ITS | Continuity of Care Document ---
Author Name Unknown Organization [facility] Address [address] [place] [id number]- Care Team Providers Care Software Configuration Specialist Name Role Phone Not on Staff, PCP Primary Care Physician Unavail able Encounter [facility] Date(s): 05/24/22 - 05/24/[address] [address]- Encounter Diagnosis Atrial fibrillation(Final) - 05/24/22 Chest pain(Final) - 05/24/22 Discharge Disposition: A-D/C Home Attending Physician: Dorys Jones MD Admitting Physician: Dorys Jones MD Referring Physician: Not on Staff, Referring MD Allergies, Adverse Reactions, Alerts No Known Medication Allergies Medications Fluoxetine By Mouth, 0 Refills, Maintenance, 03/17/22 17:01:00 EST, Partial fill upon patient request if the prescription is for a schedule II opioid drug. Start Date: 03/17/22 Status: Ordered hydrochlorothiazide 25 mg oral tablet 25 mg, 1, tablet, By Mouth, Daily, # 30 tablet, Refills 0, Maintenance, 03/17/22 17:01:00 EST, Partial fill upon patient request if the prescription is for a schedule II opioid drug. Start Date: 03/17/22 Status: Ordered metoprolol succinate 25 mg oral capsule, extended release 1 capsule = 25 mg, By Mouth, Daily at supper, # 30 capsule, 0 Refills, Maintenance, 03/17/22 23:29:00 EST, ER Capsule, [id number], Partial fill upon patient request if the prescription is for a schedule II opioid drug., 178, cm, 03/17/22 16... Start Date: 03/17/22 Status: Ordered rosuvastatin 5 mg oral capsule 1 capsule = 5 mg, By Mouth, Daily, # 30 capsule, 0 Refills, Maintenance, 03/17/22 17:01:00 EST, Capsule, Partial fill upon patient request if the prescription is for a schedule II opioid drug. Start Date: 03/17/22 Status: Ordered tamsulosin 0.4 mg oral capsule 0.4 mg, 1, capsule, By Mouth, Daily, # 30 capsule, Refills 0, Maintenance, 03/17/22 17:00:00 EST, Partial fill upon patient request if the prescription is for a schedule II opioid drug. Start Date: 03/17/22 Status: Ordered Wellbutrin By Mouth, 0 Refills, Maintenance, 03/17/22 17:00:00 EST, Partial fill upon patient request if the prescription is for a schedule II opioid drug. Start Date: 03/17/22 Status: Ordered Xarelto 20 mg oral tablet 1 tablet = 20 mg, By Mouth, Daily at supper, # 30 tablet, 0 Refills, Maintenance, 03/17/22 23:28:00EST, Tablet, [id number], Partial fill upon patient request if the prescription is for a schedule II opioid drug., 178, cm, 03/17/22 16:46:00... Start Date: 03/17/22 Status: Ordered Problem List Condition Confirmation Course Effective Dates Status Health St atus Informant Obese class II Confirmed Active Results Radiology Reports * Exam Date Time Procedure Performing Provider Status 05/24/22 12:07 PM Chest 2 Views Frontal and Lat Hien Christian; Reg (Verified) Notes: (Chest 2 Views Frontal and Lat) Reason For Exam: chest pain;Other: RESULT: Chest 2 Views Frontal and Lat Chest 2 Views Frontal and Lat Hx of Present Illness: woke up with cp thius am went to urgent care, sent to ED for further eval, pt now presents with no cp, newly diagnosed with afib, no anticoagulation as of yet, recent GI bleed;Reason: Other:; chest pain; Clinical Question(s): Other: COMPARISON: 03/17/2022 FINDINGS: LINES AND TUBES: None. LUNGS AND PLEURA: Clear lungs. Normal pulmonary vascularity. No pleural effusion. No pneumothorax. HEART, MEDIASTINUM AND FARHAT: Heart size at upper limit of normal. Mild aortic arch atherosclerosis BONES AND SOFT TISSUES: No acute abnormality. IMPRESSION: No acute abnormality. WSN: [id number] Ordering Physician: Gabby Hightower Dictated By: Jacklyn Hall MD Dictated Date/Time: 05/24/22 12:20 p Reviewed By: Jacklyn Hall MD Signed By: Jacklyn Hall MD Signed Date/Time: 05/24/22 12:20 pm Transcribed By: IWONA Transcribed Date/Time: 05/24/22 12:20 pm Vital Signs Most recent to oldest [Reference Range]: 1 2 3 Oxygen Saturation [94-100 %] 99 % (05/24/22 4:09 PM) 99 % (05/24/22 1:44 PM) 99 % (05/24/22 10:51 AM) Pulse Rate [55-90 bpm] 78 bpm (05/24/22 4:09 PM) 83 bpm (05/24/22 1:44 PM) 82 bpm (05/24/22 10:51 AM) Blood Pressure [90-138/55-84 mm Hg] 124/82mm Hg (05/24/22 4:09 PM) 134/82mm Hg (05/24/22 10:51 AM) Respiratory Rate [16-30 br/min] 16 br/min (05/24/22 4:09 PM) 16 br/min (05/24/22 1:44 PM) 16 br/min (05/24/22 10:51 AM) Temperature [96.8-100.4 DegF] 98.4 DegF (05/24/22 4:09 PM) 98.7 DegF (05/24/22 10:51 AM) Mode of Delivery (Oxygen) Room air (05/24/22 4:09 PM) Room air (05/24/22 1:44 PM) Room air (05/24/22 10:51 AM) Blood pressure sites Arm, right (05/24/22 4:09 PM) Arm, right (05/24/22 10:51 AM) Temperature Route Oral (05/24/22 4:09 PM) Oral (05/24/22 10:51 AM) EKG study * Event Display: ECG 12-Lead Authored Date: Please click on pdf link to open report * Event Display: ECG 12-Lead Authored Date: Ventricular Rate: 90 BPM QRS Duration: 94 ms Q-T Interval: 370 ms QTC Calculation(Bazett): 452 ms R [place]: -31 degrees T [place]: -17 degrees Atrial fibrillation Left axis deviation Nonspecific ST and T wave abnormality Abnormal ECG When compared with ECG of 17-MAR-2022 22:27, Nonspecific T wave abnormality, worse in Anterior leads Confirmed by SREEDHAR DONG MD ([id number]) on 05/24/2022 1:08:58 PM Mcnary: SREEDHAR DONG MD Note * Gabby Hightower DO: PERFORM Event Display: Patient Education Leaflets Authored Date: [id number] Uncertain Causes of Chest Pain ?? [id number] Uncertain Causes of Chest Pain Chest pain can happen for a number of reasons. Sometimes the cause can't be determined. If your??condition does not seem serious, and your pain does not appear to be coming from your heart, your healthcare provider may recommend watching it closely. Sometimes the signs of a serious problem take more time to appear. Many problems not related to your heart can cause chest pain. These include: ??? Musculoskeletal. Costochondritis is an inflammation of the tissues around the ribs that can occur from trauma or overuse injuries, or a strain of the muscles of the chest wall. ??? Respiratory. Pneumonia, collapsed lung (pneumothorax), or inflammation of the lining of the chest and lungs (pleurisy). ??? Gastrointestinal. Esophageal reflux, heartburn, ulcers, or gallbladder disease. ??? Anxiety and panic disorders ??? Nerve compression and inflammation ??? Rare problems such as aortic aneurysm or aortic dissection (a swelling of the large artery coming out of the heart or a tear in the wall of the artery), or pulmonary embolism (a blood clot in the lungs). Home care After your visit, follow these recommendations: ??? Rest today and avoid strenuous activity. ??? Take any prescribed medicine as directed. ??? Be aware of any recurrent chest pain and notice any changes ?? Follow-up care Follow up with your healthcare provider if you don't start to feel better within 24 hours, or as advised. ?? Call 911 Call 911 if any of these occur: ??? A change in the type of pain: if it feels different, becomes more severe, lasts longer, or begins to spread into your shoulder, arm, neck, jaw or back ??? Shortness of breath or increased pain with breathing ??? Weakness, dizziness, or fainting ??? Rapid heartbeat ??? Crushing sensation in your chest ??? Coughing up more than a small amount of blood. ?? When to seek medical advice Call your healthcare provider right away if any of the following occur: ??? Cough with dark coloredsputum (phlegm) or small amount of blood ??? Fever of 100.4??F??(38??C) or higher, or as directed by your healthcare provider ??? Swelling, pain or redness in one leg ?? Last Reviewed Date: 2021 ?? [employer]. All rights reserved. This information is not intended as a substitute for professional medical care. Always follow your healthcare professional's instructions. ?? * Gabby Hightower DO: PERFORM Event Display: Patient Education Leaflets Authored Date: [id number] Atrial Fibrillation ?? [id number] Atrial Fibrillation Atrial fibrillation is a condition in which the heart beats in an irregular pattern. It is the mostcommon abnormal heart rhythm. It is caused by a problem in the heart's electrical pathways within the muscle of the upper chambers of the heart (atria). It can be a sign of heart disease or other health problems that affect the heart. Heart palpitations are a common symptom of atrial fibrillation. This is the feeling that your heartis fluttering, or beating fast, hard, or irregular. When the heart beats too fast, it doesn't pump blood very well. This can cause other symptoms, such as anxiety, fatigue, shortness of breath, chestpain, dizziness, or fainting. Atrial fibrillation may come and go on its own, which is known as paroxysmal atrial fibrillation. It can last from a few hours to a couple of days. Or it may become persistent, lasting for weeks or months at a time. It can even become lifelong (permanent). Some symptoms of atrial fibrillation are hard to notice. For instance, some people develop subtle fatigue. Others notice a reduced ability to exercise. Some people have no symptoms. Atrial fibrillation is more common in older adults. It may be caused by heart disease or other conditions in the body that affect the heart. They include: ??? Coronary artery disease (atherosclerosis), sometimes called blocked arteries ??? High blood pressure ??? Disease of the heart valves ??? Enlarged heart ??? Heart failure Atrial fibrillation can also occur without heart disease because of: ??? Overactive thyroid (hyperthyroid) ??? Chronic lung disease (COPD, emphysema, or bronchitis) ???Heavy alcohol use ??? Heart stimulants, such as cocaine, amphetamines, diet pills, certain decongestant cold medicines, caffeine, or nicotine ??? Infection ??? Blood clot in the lung (pulmonary embolus) ??? Diabetes ??? Chronic kidney disease ??? Obesity ??? Obstructive sleep apnea ??? Extreme and continued athletic conditioning ??? Certain genetic diseases Treating or removing these causes will help your treatment for atrial fibrillation. It will also make it less likely for it to come back. Atrial fibrillation can alternate back and forth with another abnormal rhythm called atrial flutter. Atrial flutter is a more regular heart rhythm. It is also linked to an increased risk for stroke. Correct treatment of these arrhythmias can lower your risk for stroke. Home care Follow these guidelines when caring for yourself at home: ??? Go back to your usual activities as soon as you are feeling back to normal. ??? If you smoke, stop smoking. Contact your healthcare provider or a local stop-smoking program for help. ??? Don't use stimulants like alcohol, cocaine, amphetamines, diet pills, certain decongestant cold medicines, caffeine, or nicotine. ??? If your providerprescribed medicine to stop atrial fibrillation from coming back, take it exactly as directed. Somemedicines must be taken every day, not just when you have symptoms. This will help them work as they should. ??? If you were prescribed a blood-thinning medicine, take it exactly as prescribed. One of these medicines, called warfarin, needs your blood to be tested regularly as advised by your healthcare provider. This will make sure you are getting the dose that is right for you. It also lowers your risk for side effects. You may have been prescribed other blood-thinning medicines that don't need regular testing. ?? Follow-up care Follow up with your healthcare provider as advised. ?? When to get medical care Call your healthcare provider if any of these occur: ??? Swelling in the legs that gets worse ??? Unexpected weight gain ? Pain, redness, or swelling in 1 leg ? Call 911 Calling 911 is the fastest and safest way to get the emergency department. The paramedics can also start treatment on the way to the hospital, if needed. Call 911 or get medical help right away if any of these occur: ??? Weakness of an arm, leg, one side of the face ??? Chest pain ??? Shortness of breath, or feeling that you can't get enough air ??? Feeling lightheaded, faint, or dizzy ??? Your heartbeat is very fast, slow, or irregular compared with your regular heartbeat ??? Uncontrolled bleeding ??? Trouble with speech or vision ??? Extreme drowsiness, confusion, dizziness, or fainting ?? Last Reviewed Date: 2021 ?? [id number] [employer]. All rights reserved. This information is not intended as a substitute for professional medical care. Always follow your healthcare professional's instructions. ?? * [facility] , CIS S: TRANSCRIBE Jacklyn Hall MD: VERIFY Event Display: Result: Authored Date: [id number] Chest 2 Views Frontal and Lat Hx of Present Illness: woke up with cp thius am went to urgent care, sent to ED for further eval, pt now presents with no cp, newly diagnosed with afib, no anticoagulation as of yet, recent GI bleed;Reason: Other:; chest pain; Clinical Question(s): Other: COMPARISON: 03/17/2022 FINDINGS: LINES AND TUBES: None. LUNGS AND PLEURA: Clear lungs. Normal pulmonary vascularity. No pleural effusion. No pneumothorax. HEART, MEDIASTINUM AND FARHAT: Heart size at upper limit of normal. Mild aortic arch atherosclerosis BONES AND SOFT TISSUES: No acute abnormality. IMPRESSION: No acute abnormality. WSN: [id number] Ordering Physician: Gabby Hightower Dictated By: Jacklyn Hall MD Dictated Date/Time: 05/24/22 12:20 p Reviewed By: Jacklyn Hall MD Signed By: Jacklyn Hall MD Signed Date/Time: 05/24/22 12:20 pm Transcribed By: CSCathy Transcribed Date/Time: 05/24/22 12:20 pm Patient Care team information Care Team Personnel Name: Not on Staff, PCP Position: [facility] Physician (General Medicine) Member Role: PCP Name: Cortes Gaona Position: [facility] ED TA [facility] Member Role: Patient Care Provider Name: Gabby Hightower DO Position: [facility] Resident Member Role: Resident Address: Address: [address] [place] [address]- Name: Dorys Jones MD Position: [facility] ED Medicine MD Member Role: Admitting Physician Address: Address: [address] [place] [address] Name: Hernandez Harp RN Position: [facility] ED RN W/OE and Tasks Member Role: Patient Care Provider Care Team Related Persons Name: SHERRON BOND Address: [address] [address]
--- OUTSIDE RECORDS SUMMARY | 2022-06-24 09:19 | XMS_ITS | Continuity of Care Document ---
Author Name Unknown Organization [facility] ter Address [address] [place] [id number]- Care Team Providers Care Operations Logistics Analyst Name Role Phone Pedro Pablo ORELLANA, Emile Hdz Primary Care Physician [phone] Encounter [facility] Date(s): 03/17/22 - 03/17/[address] [address]- Encounter Diagnosis Atrial fibrillation, new onset(Final) - 03/17/22 Discharge Disposition: A-D/C Home Attending Physician: Conchita Zhang MD Admitting Physician: Conchita Zhang MD Referring Physician: Not on Staff, Referring [...] drug. Start Date: 03/17/22 Status: Ordered metoprolol 25 mg oral tablet, extended release 25 mg, XL Tablet, By Mouth, Once, STAT, 03/17/22 21:47:00 EST, Stop date 03/17/22 21:47:00 EST Start Date: 03/17/22 Stop Date: 03/17/22 Status: Completed metoprolol succinate 25 mg oral capsule, extended release 1 capsule = 25 mg, By Mouth, Daily at supper, # 30 capsule, 0 Refills, Maintenance, 03/17/22 23:29:00 EST, ER Capsule, [id number], Partial fill upon patient request [...] tablet, 0 Refills, Maintenance, 03/17/22 23:28:00EST, Tablet, [id number], Partial fill upon patient request if the prescription is for a schedule II opioid drug., 178, cm, 03/17/22 16:46:00... Start Date: 03/17/22 Status: Ordered Problem List Condition Confirmation Course Effective Dates Status Health St atus Informant Obese class II Confirmed Active Results Radiology Reports * Exam Date Time Procedure Performing Provider Status 03/17/22 5:42 PM Chest 2 Views Frontal and Lat Shadi Grimm; Auth (Verified) Notes: (Chest 2 Views Frontal and Lat) Reason For Exam: Chest Pain;Other: RESULT: Chest 2 Views Frontal and Lat Chest 2 Views Frontal and Lat Hx of Present Illness: Pt was at followup appt at PCP office when they did an EKG after pt was c o dizziness and lightheadedness for almost 1 month.; Reason: Other:; Chest Pain; Clinical Question(s):Other: COMPARISON: None. FINDINGS: LINES AND TUBES: None. LUNGS AND PLEURA: Clear lungs. Normal pulmonary vascularity. No pleural effusion. No pneumothorax. HEART, MEDIASTINUM AND FARHAT: Heart is normal in size. Normal mediastinal and hilar contour. BONES AND SOFT TISSUES: No acute abnormality. IMPRESSION: No acute abnormality. WSN: [id number] Ordering Physician: Dianne Solis Dictated By: Geoff Leos MD Dictated Date/Time: 03/17/22 5:54 pm Reviewed By: Geoff Leos MD Signed By: Geoff Leos MD Signed Date/Time: 03/17/22 5:54 pm Transcribed By: IWONA Transcribed Date/Time: 03/17/22 5:53 pm Vital Signs Most recent to oldest [Reference Range]: 1 2 3 Height 178 cm (03/17/22 4:46 PM) 178 cm (03/17/22 4:44 PM) Weight 113 kg (03/17/22 4:46 PM) 113 kg (03/17/22 4:44 PM) Oxygen Saturation [94-100 %] 99 % (03/17/22 11:36 PM) 100 % (03/17/22 6:23 PM) 99 % (03/17/22 4:44 PM) Pulse Rate [55-90 bpm] 83 bpm (03/17/22 11:36 PM) 98 bpm *H* (03/17/22 10:14 PM) 98 bpm *H* (03/17/22 6:23 PM) Body Mass Index [18.5-24.99 kg/m2] 35.66 kg/m2 *>HHI* (03/17/22 4:44 PM) Blood Pressure [90-138/55-84 mm Hg] 120/86mm Hg (03/17/22 11:36 PM) 125/79mm Hg (03/17/22 10:14 PM) 111/65mm Hg (03/17/22 6:23 PM) Respiratory Rate [16-30 br/min] 19 br/min (03/17/22 11:36 PM) 18 br/min (03/17/22 6:23 PM) 18 br/min (03/17/22 4:44 PM) Temperature [96.8-100.4 DegF] 98.9 DegF (03/17/22 6:23 PM) 98.8 DegF (03/17/22 4:44 PM) Mode of Delivery (Oxygen) Room air (03/17/22 11:36 PM) Room air (03/17/22 6:23 PM) Room air (03/17/22 4:44 PM) Blood pressure sites Arm, left (03/17/22 11:36 PM) Arm, right (03/17/22 6:23 PM) Arm, left (03/17/22 4:44 PM) Temperature Route Oral (03/17/22 6:23 PM) Oral (03/17/22 4:44 PM) Dry Weight 113 kg (03/17/22 4:46 PM) 113 kg (03/17/22 4:44 PM) Note * Isaiah Buckley DO: PERFORM Event Display: Patient Education Leaflets Authored Date: [id number] Rivaroxaban Oral Tablet ?? [id number] Rivaroxaban Oral Tablet Brands: Xarelto Uses This medicine is used for the following purposes: ??? blood disorder ??? prevent blood clots ??? blood clot ??? prevent heart attack ?? Instructions Take the medicine with food. It is very important that you take the medicine at about the same time every day. It will work bestif you do this. Store at room temperature away from heat, light, and moisture. Do not keep in the bathroom. It is important that you keep taking each dose of this medicine on time even if you are feeling well. If you forget to take a dose on time, take it as soon as you remember. If it is almost time for thenext dose, do not take the missed dose. Return to your normal dosing schedule. Do not take 2 doses of this medicine at one time. Drug interactions can change how medicines work or increase risk for side effects. Tell your healthcare providers about all medicines taken. Include prescription and lmbf-eqd-jemwlyz medicines, vitamins, and herbal medicines. Speak with your doctor or pharmacist before starting or stopping any medicine. Talk to your doctor before taking other medicines, including aspirins and ibuprofen containing products. Speak to your doctor about which medicines are safe to use while you are on this medicine. Do not suddenly stop taking this medicine. Check with your doctor before stopping. It is very important that you follow your doctor's instructions for all blood tests. ?? Cautions Tell your doctor and pharmacist if you ever had an allergic reaction to a medicine. This medicine may cause serious bleeding from the stomach or bowels. Stop this medicine and call your doctor immediately if you see any signs of bleeding. Bleeding can cause pain in the stomach, vomiting up liquid that looks like coffee grounds, and red or dark tarry stools. There is an increased risk of bleeding while on this medicine, please tell your doctor or nurse if you notice any excessive bleeding or bruising. Do not use the medication any more than instructed. Speak with your doctor before taking any medicine with aspirin. Tell the doctor or pharmacist if you are , planning to be , or . Do not take [place]'s wort while on this medicine. Do not share this medicine with anyone who has not been prescribed this medicine. Some patients have serious side effects from this medicine. Ask your pharmacist to show you the information from the Food and Drug Administration (FDA) and discuss it with you. Always refill this medicine before it runs out. ?? Side Effects The following is a list of some common side effects from this medicine. Please speak with your doctor about what you should do if you experience these or other side effects. ??? back pain ??? increased risk of bruising and bleeding ??? itching ??? muscle pain Call your doctor or get medical help right away if you notice any of these more serious side effects: ??? bleeding or bruising ??? confusion ??? fainting ??? numbness or tingling in hands and feet ??? loss of movement anywhere on the body ??? slurred speech ??? dark, tarry stool ??? unusual or unexplained tiredness or weakness ??? blood in urine ??? blurring or changes of vision ??? weakness on oneside of the body A few people may have an allergic reaction to this medicine. Symptoms can include difficulty breathing, skin rash, itching, swelling, or severe dizziness. If you notice any of these symptoms, seek medical help quickly. ?? Extra Please speak with your doctor, nurse, or pharmacist if you have any questions about this medicine. ?? [email or web address] IMPORTANT NOTE: This document tells you briefly how to take your medicine, but it does not tell youall there is to know about it. Your doctor or pharmacist may give you other documents about your medicine. Please talk to them if you have any questions. Always follow their advice. There is a more complete description of this medicine available in Latvian. Scan this code on your smartphone or tablet or use the web address below. You can also ask your pharmacist for a printout. If you have any questions, please ask your pharmacist. The display and use of this drug information is subject to Terms of Use. Copyright(c) 2021 [employer]. ?? [employer]. All rights reserved. This information is not intended as a substitute for professional medical care. Always follow your healthcare professional's instructions. ?? * Isaiah Buckley DO: PERFORM Event Display: Patient Education Leaflets Authored Date: [id number] Metoprolol Extended Release Oral Tablet ?? [id number] Metoprolol Extended Release Oral Tablet Brands: Toprol Uses This medicine is used for the following purposes: ??? angina ??? heart attack ??? heart failure ???high blood pressure ??? irregular heart beat ??? prevent migraine headaches ??? movement disorder ?? Instructions Swallow the medicine without crushing or chewing it. This medicine may be taken with or without food. It is very important that you take the medicine at about the same time every day. It will work bestif you do this. Keep the medicine at room temperature. Avoid heat and direct light. It is important that you keep taking each dose of this medicine on time even if you are feeling well. If you forget to take a dose on time, take it as soon as you remember. If it is almost time for thenext dose, do not take the missed dose. Return to your normal dosing schedule. Do not take 2 doses of this medicine at one time. Drug interactions can change how medicines work or increase risk for side effects. Tell your healthcare providers about all medicines taken. Include prescription and yjfm-xjd-fhradeg medicines, vitamins, and herbal medicines. Speak with your doctor or pharmacist before starting or stopping any medicine. This medicine may cause low blood sugar. Eat regular meals and exercise as instructed by your doctor. Tell your doctor if you have symptoms of low blood sugar such as nausea, sweating, cold skin, fast heartbeat, hunger, and irritability. If you have diabetes, this medicine may hide some signs of low blood sugar, such as fast heartbeat.Check your blood sugar regularly and for other signs of low blood sugar. Do not suddenly stop taking this medicine. Check with your doctor before stopping. ?? Cautions Tell your doctor and pharmacist if you ever had an allergic reaction to a medicine. Some patients with weak hearts may have worsening of symptoms. If you notice difficulty breathing, weight gain, or swelling of your legs or ankles, let your doctor know right away. Do not use the medication any more than instructed. This medicine may cause dizziness or fainting, especially after exercising or in hot weather. Be very careful when standing or sitting up quickly. Your ability to stay alert or to react quickly may be impaired by this medicine. Do not drive or operate machinery until you know how this medicine will affect you. Please check with your doctor before drinking alcohol while on this medicine. Tell the doctor or pharmacist if you are , planning to be , or . Do not share this medicine with anyone who has not been prescribed this medicine. ?? Side Effects The following is a list of some common side effects from this medicine. Please speak with your doctor about what you should do if you experience these or other side effects. ??? diarrhea ??? dizziness or drowsiness ??? lack of energy and tiredness ??? slow heartbeat ??? low blood pressure Call your doctor or get medical help right away if you notice any of these more serious side effects: ??? confusion ??? depression or feeling sad ??? fainting ??? pale or blue skin, lips or fingernails??? shortness of breath ??? unusual or unexplained tiredness or weakness ??? sudden or unexplained weight gain A few people may have an allergic reaction to this medicine. Symptoms can include difficulty breathing, skin rash, itching, swelling, or severe dizziness. If you notice any of these symptoms, seek medical help quickly. ?? Extra Please speak with your doctor, nurse, or pharmacist if you have any questions about this medicine. ?? [email or web address] IMPORTANT NOTE: This document tells you briefly how to take your medicine, but it does not tell youall there is to know about it. Your doctor or pharmacist may give you other documents about your medicine. Please talk to them if you have any questions. Always follow their advice. There is a more complete description of this medicine available in Latvian. Scan this code on your smartphone or tablet or use the web address below. You can also ask your pharmacist for a printout. If you have any questions, please ask your pharmacist. The display and use of this drug information is subject to Terms of Use. Copyright(c) 2021 [employer]. ?? [employer]. All rights reserved. This information is not intended as a substitute for professional medical care. Always follow your healthcare professional's instructions. ?? * Isaiah Buckley DO: PERFORM Event Display: Patient Education Leaflets Authored Date: [id number] Atrial Fibrillation ?? [id number] Atrial Fibrillation Atrial fibrillation is a condition [...] fainting ?? Last Reviewed Date: 2021 ?? 7136-7602 [employer]. All rights reserved. This information is not intended as a substitute for professional medical care. Always follow your healthcare professional's instructions. ?? * BHSPowerscribe , CIS S: TRANSCRIBE Geoff Leos MD: VERIFY Event Display: Result: Authored Date: [id number] Chest 2 Views Frontal and Lat Hx of Present Illness: Pt was at followup appt at PCP office when they did an EKG after pt was c o dizziness and lightheadedness for almost 1 month.; Reason: Other:; Chest Pain; Clinical Question(s):Other: COMPARISON: None. FINDINGS: LINES AND TUBES: None. LUNGS AND PLEURA: Clear lungs. Normal pulmonary vascularity. No pleural effusion. No pneumothorax. HEART, MEDIASTINUM AND FARHAT: Heart is normal in size. Normal mediastinal and hilar contour. BONES AND SOFT TISSUES: No acute abnormality. IMPRESSION: No acute abnormality. WSN: [id number] Ordering Physician: Dianne Solis Dictated By: Geoff Leos MD Dictated Date/Time: 03/17/22 5:54 pm Reviewed By: Geoff Leos MD Signed By: Geoff Leos MD Signed Date/Time: 03/17/22 5:54 pm Transcribed By: IWONA Transcribed Date/Time: 03/17/22 5:53 pm Patient Care team information Care Team Personnel Name: Emile Chamorro NP Position: Reference Physician Member Role: PCP Address: Address: [address] [place] [address]- Name: Patricia Mishra RN Position: [facility] ED RN W/OE and Tasks Member Role: Patient Care Provider Name: Isaiah Buckley DO Position: S Resident Member Role: Resident Address: Address: [address] [place] [address] [place] [address]- Name: Pamela Chong Position: [facility] ED TA [facility] Member Role: Patient Care Provider Name: Conchita Zhang MD Position: [facility] Resident Member Role: Admitting Physician Address: Address: [address] [place] [address] [place] [address]-
[2022-06-24 09:35] VITALS: BP 164/95; PULSE 87; RESP 18; TEMP 36.3; O2SAT 98; BMI 35.9
[2022-06-24] MEDS: Lactated Ringers 1,000 ML 100 ML IVCONT (09:50)
[2022-06-24 11:12] VITALS: BP 104/61; PULSE 84; RESP 16; TEMP 36.9; O2SAT 96
--- NOTE | 2022-06-24 11:17 | PM.OP ---
Brief Operative Note Date of Service: 06/24/22 Pre-op diagnosis: Crohn's disease Post-op diagnosis: other (Diverticulsosis, R/O Dysplasia) Procedure: Colonoscopy to the cecum and TI with biopsies Surgeon: Steven Guan Anesthesia: MAC Was an Summer School Coordinator used for this Procedure?: No Estimated blood loss (mL): 2.0 Pathology: other (A. Ascending colon B. Transverse colon C. Descending colon D. Sigmoid colon E. Rectum) Condition: stable Disposition: PACU
[2022-06-24 11:27] VITALS: BP 109/58; PULSE 84; RESP 16; TEMP 36.9; O2SAT 96
--- NOTE | 2022-06-25 13:43 | OP_ITS ---
DATE OF SERVICE: 06/24/2022 SURGEON: Steven Guan MD PREOPERATIVE DIAGNOSIS: POSTOPERATIVE DIAGNOSIS: PROCEDURE PERFORMED: Colonoscopy to the cecum and terminal ileum with multiple biopsies. ESTIMATED BLOOD LOSS: COMPLICATIONS: ANESTHESIA: Monitored anesthesia care. ASSISTANTS: SPECIMENS: PREOPERATIVE DIAGNOSES: History of Crohn colitis, rectal bleeding, and colorectal cancer screening. POSTOPERATIVE DIAGNOSES: History of Crohn colitis, rectal bleeding, and colorectal cancer screening, diverticulosis, internal hemorrhoids, rule out dysplasia. INDICATION: The patient presents for evaluation of history of Crohn colitis, rectal bleeding, and colorectal cancer screening. Full consent has been obtained from him for this, including risks of bleeding and perforation. DESCRIPTION OF PROCEDURE: The patient was placed in the left lateral decubitus position. The digital rectal exam revealed no perianal disease. The Olympus video pediatric colonoscope was entered into the rectum and advanced to the cecum with the assistance of the abdominal wall pressure. Once in the cecum, I did identify normal-appearing cecal pouch with appendiceal orifice and a normal-appearing ileocecal valve. The terminal ileum was cannulated and appeared normal. The scope was withdrawn back in the colon. The entire cecum and ileocecal valve appeared normal. The scope was then slowly withdrawn assessing all mucosal surface carefully. Preparation was excellent. I did not visualize any sign of polyps, angiodysplasias, nor any signs of active colitis. There were some areas of colonic edema but no signs of any colitis. Biopsies were obtained in the ascending colon, transverse colon, descending colon, sigmoid colon, and rectum. There was a mild amount of sigmoid diverticulosis. In the rectum, the scope was retroflexed visualizing internal hemorrhoids but no other pathology. The rectal mucosa appeared normal. Scope was straightened and withdrawn from the patient. He tolerated the procedure well and was returned to the recovery area in stable condition. IMPRESSION: 1. Diverticulosis. 2. Internal hemorrhoids. 3. Rule out dysplasia. PLAN: The results of the biopsies will be checked. Given his age and his findings, I do not think, he would need any further screening colonoscopies. He will continue his mesalamine 4.8 g daily for his underlying history of Crohn colitis. He was advised not to use any aspirin nor NSAIDS for at least 1 week but long-term would be better given the underlying history of Crohn disease. He was advised to see me again later in a year for followup visit but to call sooner as needed. He was advised to resume his iron today. Recent stool specimens were negative for infection and recent laboratories, all appeared normal as well including sed rate and C-reactive protein. This has all been discussed with his . MD SEPIDEH Martínez/HARMAN / [id number]
== END 2022-06-24 12:10 | disposition home or self-care (01) ==
PROVIDERS: PCP Nurse Practitioner Family; Visit Provider Internal Medicine
PROC: 0DJD8ZZ Inspection of Lower Intestinal Tract, Via Natural or Artificial Opening Endoscopic (ICD-10-PCS; CPT 45378; principal; 2022-06-24 10:20)
DX: K62.5 Hemorrhage of anus and rectum (principal); K50.10 Crohn's disease of large intestine without complications; R19.7 Diarrhea, unspecified; K57.30 Diverticulosis of large intestine without perforation or abscess without bleeding; K64.8 Other hemorrhoids; I48.91 Unspecified atrial fibrillation; I10 Essential (primary) hypertension; E61.1 Iron deficiency; I73.9 Peripheral vascular disease, unspecified; N40.0 Benign prostatic hyperplasia without lower urinary tract symptoms; F32.A Depression, unspecified; G47.33 Obstructive sleep apnea (adult) (pediatric); G47.61 Periodic limb movement disorder; Z99.89 Dependence on other enabling machines and devices; Z79.899 Other long term (current) drug therapy; Z90.49 Acquired absence of other specified parts of digestive tract; Z87.891 Personal history of nicotine dependence
CPT/HCPCS: 45380; 88305

== ENCOUNTER 2022-08-07 09:11 | Outpatient (REF) | payer MEDICARE, OTHER, SELFPAY ==
[2022-08-07 11:22] LABS: Appearance Urine Clear; Color Urine Yellow; Glucose Urine UA Negative (Negative); Leukocyte Esterase Urine Negative (Negative); MANUAL DIFF FLAG NO; Nitrite Urine Negative (Negative); Urine Blood Negative (Negative); Urine Ketones Negative (Negative); Urine Protein Negative (Neg-Trace)
[2022-08-07 11:36] LABS: Basophils Absolute Auto 0.1 X10*3/uL (0.0-0.2); Basophils Percent Auto 1.5 % (0-2); Eosinophils Absolute Auto 0.3 X10*3/uL (0.0-0.4); Eosinophils Percent Auto 5.7 % (0-4); Hematocrit 39.8 % (42.0-52.0); Hemoglobin 12.5 g/dl (14.0-18.0); Imm Gran Abs Auto 0.02 X10*3/uL (0.00-0.03); Imm Gran Pct Auto 0.4 % (0.0-0.4); Lymphocytes Absolute Auto 1.4 X10*3/uL (1.2-4.9); Lymphocytes Percent Auto 29.4 % (20-40); Mean Corpuscular HGB Conc 31.4 g/dl (31.0-36.0); Mean Corpuscular Hemoglobin 29.6 pg (27.0-33.0); Mean Corpuscular Volume 94.3 fL (80.0-98.0); Mean Platelet Volume 9.5 fL (9.4-12.4); Monocytes Absolute Auto 0.5 X10*3/uL (0.1-1.2); Monocytes Percent Auto 10.8 % (2-11); Neutrophils Absolute Auto 2.5 x10*3/uL (2.0-8.3); Neutrophils Percent Auto 52.2 % (45-73); Platelet Count 280 X10*3/uL (160-400); Red Blood Count 4.22 X10*6/uL (4.60-5.80); Red Cell Distribution Width 14.6 % (11.0-16.0); White Blood Count 4.7 X10*3/uL (4.8-10.8)
[2022-08-07 11:54] LABS: B Type Natriuretic Peptide 310 pg/mL (<100)
[2022-08-07 12:06] LABS: Alanine Aminotransferase 16 U/L (0-40); Alkaline Phosphatase 83 U/L (39-117); Anion Gap 10 (12-20); Aspartate Amino Transferase 18 U/L (5-37); Bilirubin Total 0.6 mg/dL (0.0-1.0); Blood Urea Nitrogen 20 mg/dL (9-16); Calcium 9.4 mg/dL (8.4-10.2); Carbon Dioxide 28 mmol/L (22-29); Chloride 108 mmol/L (96-108); Cholesterol 145 mg/dL; Estimated Glomerular Filt Rate > 60; Glucose Fasting 96 mg/dL (60-99); HDL Cholesterol 57 mg/dL; LDL Cholesterol Calculated 75 mg/dl; Potassium 4.8 mmol/L (3.3-5.1); Sodium 141 mmol/L (135-145); Total Protein 6.8 g/dL (6.5-8.0); Triglycerides 65 mg/dL
== END 2022-08-07 09:12 | disposition home or self-care (01) ==
LOC: HO.HMGCLDS 09:11
PROVIDERS: PCP Nurse Practitioner Family; Visit Provider Nurse Practitioner Family
DX: I10 Essential (primary) hypertension (principal); I48.91 Unspecified atrial fibrillation
CPT/HCPCS: 36415; 80053; 80061; 81003; 83880; 84443; 85025

== ENCOUNTER 2022-10-06 06:39 | Outpatient (REF) | payer MEDICARE, OTHER, SELFPAY ==
[2022-10-06 11:31] LABS: INTERNATIONAL NORM RATIO 1.1 (0.9-1.1); Prothrombin Time 12.2 SEC (10.0-13.1)
[2022-10-06 11:56] LABS: Alanine Aminotransferase 16 U/L (0-40); Albumin Level 3.8 g/dL (3.5-5.0); Alkaline Phosphatase 72 U/L (39-117); Anion Gap 13 (12-20); Aspartate Amino Transferase 16 U/L (5-37); Bilirubin Total 0.7 mg/dL (0.0-1.0); Blood Urea Nitrogen 17 mg/dL (9-16); Calcium 9.7 mg/dL (8.4-10.2); Carbon Dioxide 26 mmol/L (22-29); Chloride 105 mmol/L (96-108); Estimated Glomerular Filt Rate > 60; Glucose Random 94 mg/dL (60-115); Sodium 140 mmol/L (135-145)
[2022-10-11 15:44] LABS: NT-proBNP 748 pg/mL (<125)
== END 2022-10-06 06:40 | disposition home or self-care (01) ==
LOC: HO.HMGCLDS 06:39
PROVIDERS: PCP Nurse Practitioner Family; Visit Provider Internal Medicine Cardiovascular Disease
DX: I44.4 Left anterior fascicular block (principal); E78.2 Mixed hyperlipidemia; I87.2 Venous insufficiency (chronic) (peripheral); I48.21 Permanent atrial fibrillation
CPT/HCPCS: 36415; 80053; 83880; 85610

== ENCOUNTER 2022-10-12 13:54 | Outpatient (REF) | payer MEDICARE, OTHER, SELFPAY ==
[2022-10-12 16:39] LABS: INTERNATIONAL NORM RATIO 1.4 (0.9-1.1); Prothrombin Time 16.2 SEC (10.0-13.1)
== END 2022-10-12 13:55 | disposition home or self-care (01) ==
LOC: HO.HMGCLR 13:54
PROVIDERS: PCP Nurse Practitioner Family; Visit Provider Internal Medicine Cardiovascular Disease
DX: I48.91 Unspecified atrial fibrillation (principal); Z79.01 Long term (current) use of anticoagulants
CPT/HCPCS: 36415; 85610

== ENCOUNTER 2022-10-16 06:49 | Outpatient (REF) | payer MEDICARE, OTHER, SELFPAY ==
[2022-10-16 11:43] LABS: INTERNATIONAL NORM RATIO 2.1 (0.9-1.1); Prothrombin Time 24.8 SEC (10.0-13.1)
== END 2022-10-16 06:50 | disposition home or self-care (01) ==
LOC: HO.HMGCLDS 06:49
PROVIDERS: PCP Nurse Practitioner Family; Visit Provider Internal Medicine Cardiovascular Disease
DX: I48.91 Unspecified atrial fibrillation (principal); Z79.01 Long term (current) use of anticoagulants
CPT/HCPCS: 36415; 85610

== ENCOUNTER 2022-10-21 07:42 | Outpatient (REF) | payer MEDICARE, OTHER, SELFPAY ==
[2022-10-21 11:35] LABS: INTERNATIONAL NORM RATIO 2.9 (0.9-1.1); Prothrombin Time 35.9 SEC (11.1-13.3)
== END 2022-10-21 07:43 | disposition home or self-care (01) ==
LOC: HO.HMGCLDS 07:42
PROVIDERS: PCP Nurse Practitioner Family; Visit Provider Internal Medicine Cardiovascular Disease
DX: I48.91 Unspecified atrial fibrillation (principal); Z79.01 Long term (current) use of anticoagulants
CPT/HCPCS: 36415; 85610

== ENCOUNTER 2022-10-27 06:47 | Outpatient (REF) | payer MEDICARE, OTHER, SELFPAY ==
[2022-10-27 11:33] LABS: INTERNATIONAL NORM RATIO 2.8 (0.9-1.1); Prothrombin Time 33.5 SEC (11.1-13.3)
== END 2022-10-27 06:48 | disposition home or self-care (01) ==
LOC: HO.HMGCLDS 06:47
PROVIDERS: PCP Nurse Practitioner Family; Visit Provider Internal Medicine Cardiovascular Disease
DX: I48.91 Unspecified atrial fibrillation (principal); Z79.01 Long term (current) use of anticoagulants
CPT/HCPCS: 36415; 85610

== ENCOUNTER 2022-11-10 06:50 | Outpatient (REF) | payer MEDICARE, OTHER, SELFPAY ==
[2022-11-10 08:43] LABS: B Type Natriuretic Peptide 186 pg/mL (<100)
[2022-11-10 11:15] LABS: MANUAL DIFF FLAG NO
[2022-11-10 11:25] LABS: Basophils Absolute Auto 0.1 X10*3/uL (0.0-0.2); Basophils Percent Auto 1.7 % (0-2); Eosinophils Absolute Auto 0.4 X10*3/uL (0.0-0.4); Eosinophils Percent Auto 8.9 % (0-4); Hematocrit 42.8 % (42.0-52.0); Hemoglobin 13.5 g/dl (14.0-18.0); Imm Gran Abs Auto 0.01 X10*3/uL (0.00-0.03); Imm Gran Pct Auto 0.2 % (0.0-0.4); Lymphocytes Absolute Auto 1.8 X10*3/uL (1.2-4.9); Lymphocytes Percent Auto 38.1 % (20-40); Mean Corpuscular HGB Conc 31.5 g/dl (31.0-36.0); Mean Corpuscular Hemoglobin 29.3 pg (27.0-33.0); Mean Platelet Volume 9.7 fL (9.4-12.4); Monocytes Absolute Auto 0.4 X10*3/uL (0.1-1.2); Monocytes Percent Auto 8.9 % (2-11); Neutrophils Percent Auto 42.2 % (45-73); Platelet Count 242 X10*3/uL (160-400); Red Cell Distribution Width 14.6 % (11.0-16.0); White Blood Count 4.8 X10*3/uL (4.8-10.8)
[2022-11-10 11:26] LABS: INTERNATIONAL NORM RATIO 2.6 (0.9-1.1); Prothrombin Time 31.4 SEC (11.1-13.3)
[2022-11-10 12:05] LABS: Alanine Aminotransferase 26 U/L (0-40); Albumin Level 3.7 g/dL (3.5-5.0); Alkaline Phosphatase 83 U/L (39-117); Anion Gap 11 (12-20); Aspartate Amino Transferase 27 U/L (5-37); Bilirubin Total 0.3 mg/dL (0.0-1.0); Blood Urea Nitrogen 18 mg/dL (9-16); Calcium 8.8 mg/dL (8.4-10.2); Carbon Dioxide 27 mmol/L (22-29); Chloride 108 mmol/L (96-108); Estimated Glomerular Filt Rate > 60; Glucose Random 108 mg/dL (60-115); Iron 70 mcg/dL (45-160); Percent Iron Saturation 27 % (15-50); Potassium 4.1 mmol/L (3.3-5.1); Sodium 142 mmol/L (135-145); Total Iron Binding Capacity 263 mcg/dL (228-428); Unsaturated Iron Binding 193 ug/dL
[2022-11-10 12:11] LABS: Ferritin 59 ng/mL (20-250)
[2022-11-10 12:30] LABS: Folate 16.4 ng/mL (> or = 4.0); Vitamin B12 418 pg/mL (200-900)
== END 2022-11-10 06:51 | disposition home or self-care (01) ==
LOC: HO.HMGCLR 06:50
PROVIDERS: Absent Provider Internal Medicine Cardiovascular Disease; PCP Nurse Practitioner Family; Visit Provider Nurse Practitioner Family
DX: I48.91 Unspecified atrial fibrillation (principal); D64.9 Anemia, unspecified; R60.9 Edema, unspecified; Z79.01 Long term (current) use of anticoagulants
CPT/HCPCS: 36415; 80053; 82607; 82728; 82746; 83540; 83880; 85025; 85610

== ENCOUNTER 2022-11-17 09:01 | Outpatient (AMB) | payer MEDICARE, OTHER, SELFPAY ==
[2022-11-17 09:20] VITALS: BP 118/62; PULSE 73; O2SAT 95; BMI 37.1
--- NOTE | 2022-11-17 09:20 | AM.OFFVISMDC ---
Intake Vital Signs 11/17/22 09:20 Height 5 ft 10 in Weight 258 lb 6 oz BMI 37.1 BP 118/62 Blood Pressure Location Lt brachial Position Sitting Pulse 73 Pulse Source Pulse Oximeter Pulse Oximetry (%) 95 Oxygen Delivery Method Room Air Intake Visit Reasons: AWV G0438 Allergies oatmeal Allergy (Unknown, Uncoded 11/17/22 09:23) hives HPI AWV G0438 HPI Details Pt is here for an AWV. [place] of care not filled out. PPP will be scanned in chart and copy will be given to pt. Denies fever, chills, and dizziness. [facility] Medical History (Updated 11/17/22 @ 10:03 by CLARIBEL Godfrey) BPH (benign prostatic hyperplasia) Crohn's disease Depression Dyslipidemia Foreign body of finger of right hand HTN (hypertension) Iron deficiency Left anterior fascicular block (LAFB) New onset a-fib RANULFO (obstructive sleep apnea) PLMD (periodic limb movement disorder) PVD (peripheral vascular disease) Venous insufficiency of both lower extremities Vertebral compression fracture Surgical History History of cholecystectomy Status post endovenous radiofrequency ablation (RFA) of saphenous vein Family History Father Cancer of prostate Mother Anxiety Sister Breast cancer Sister Nephritis Sister No problems noted. Sister No problems noted. Sister No problems noted. Daughter Substance use disorder Mental health disorder Daughter No problems noted. Daughter No problems noted. Brother No problems noted. Brother No problems noted. Brother Epilepsy Paternal Grandfather Substance use disorder Social History Housing: House Alcohol intake: never Patient Tobacco Use Status: Former Tobacco user Quit Date: 1964 Years Smoked: 50 years ago e-Cigarette/Vaping Use: Never Used Second Hand Smoke Exposure: No service: Yes Current occupational status: retired Cognitive needs: No Hearing needs: No Vision needs: No Questionnaire Medicare Wellness Checkup [age] What gender do you identify with?: male During the past 4 weeks, how much have you been bothered by emotional problems such as feeling anxious, depressed, irritable, sad or downhearted, and blue?: moderately During the past 4 weeks, has your physical & emotional health limited your social activities with family, friends, neighbors, or groups?: not at all During the past 4 weeks, how much bodily pain have you generally had?: no pain During the past 4 weeks, was someone available to help you if you needed & wanted help?: yes, as much as I wanted During the past 4 weeks, what was the hardest physical activity you could do for at least 2 minutes?: light Can you get to places out of walking distance without help? (For eg., can you travel alone on buses, taxis or drive your car?): Yes Can you go shopping for groceries or clothes without someone's help?: Yes Can you prepare your own meals?: Yes Can you do your housework without help?: Yes Because of any health problems, do you need the help of another person with your personal care needs such as eating, bathing, dressing or getting around the house?: No Can you handle your own money without help?: Yes During the past 4 weeks, how would you rate your health in general?: good During the past 4 weeks how have things been going for you?: good & bad parts about equal Are you having difficulties driving your car?: no Do you always fasten your seat belt when you are in a car?: yes, usually During past 4 weeks, have you been bothered by the following: never: Problems using the telephone?, seldom: Falling or dizzy when standing up, sometimes: Trouble eating well?, Teeth or denture problems? and Tiredness or fatigue? and always: Sexual problems? Have you fallen 2 or more times in the past year?: Yes Are you afraid of falling?: No Are you a smoker?: no During the past 4 weeks, how many drinks of wine, beer, or other alcoholic beverages did you have?: no alcohol at all Do you exercise for about 20 minutes 3 or more times a week?: no, I usually do not exercise this much How often do you have trouble taking medicines the way you have been told to take them?: sometimes I take medicine as prescribed How confident are you that you can control & manage most of your health problems?: somewhat confident What is your race?: White Mini Mental State Exam (MMSE) Orientation What is the (year) (season) (date) (day) (month)?: year (2022) Where are we (state) (county) (town or city) (hospital) (floor)?: state, county and town or city Registration Name of 3 unrelated objects clearly and slowly, then ask patient to repeat all 3 of them. (1st repeat determines score. Make sure they can repeat all three): object 1, object 2 and object 3 Attention & Calculation (CHOOSE ONE) Spell WORLD backwards (DLROW): 4 letters Recall Ask patient to repeat the 3 items from question #3.: object 1, object 2 and object 3 Language Show patient a wristwatch & ask what it is. Repeat for pencil.: watch Ask the patient to repeat the phrase 'No ifs, ands, or buts' after you.: correct Ask the patient to 'take a piece of paper with their right hand' 'fold paper in half' 'place paper on floor': take paper in right hand, fold paper in half and place paper on floor Print the sentence 'CLOSE YOUR EYES' on a piece. If patient actually closes eyes then score.: followed written direction Give patient a blank piece of paper & ask to write a sentence. Score if it contains a noun & verb.: sentence contains subject and verb Ask patient to copy figure of intersecting pentagons exactly. Score if all 10 angles & 2 intersects are included.: all 10 angles present & 2 are intersected Score Score: 22 Activity of Daily Living Bathing - sponge bath, tub bath or shower: receives no assistance (gets in/out by self, if usual bathing means Dressing - getting clothes from closets & drawers, including inner/outer garments & fasteners.: gets clothes & gets completely dressed without help Toileting - going to the 'toilet room' for urine/bowel elimination & cleaning self/arranging clothes: goes to toilet room, cleans self, arranges clothes without help Transfer: moves in & out of bed and chair without help (may use support object) Continence: controls urination/bowel movements completely by self Feeding: feeds self without help Total Score: 0 Information obtained from: patient Using telephone: independent Traveling: independent Shopping: independent Preparing meals: independent Housework: independent Taking medicine: independent Managing money: independent PHQ-9 Over the last 2 weeks, how often have you been bothered by any of the following problems? 1. Little interest or pleasure in doing things: not at all 2. Feeling down, depressed, or hopeless: not at all 3. Trouble falling or staying asleep, or sleeping too much: not at all 4. Feeling tired or having little energy: several days 5. Poor appetite or overeating: more than half the days 6. Feeling bad about yourself - or that you are a failure or have let yourself or your family down: not at all 7. Trouble concentrating on things, such as reading the newspaper or watching television: not at all 8. Moving or speaking so slowly that other people could have noticed. Or the opposite - being so fidgety or restless that you have been moving around a lot more than usual: not at all 9. Thoughts that you would be better off or of hurting yourself in some way: not at all Total score: 3 Depression Screening Interpretation: Negative 78170 - PHQ-9 Billing: Yes Source: Developed by Drs. Steven Kaplan, Alana Day, Perry Elmore and colleagues, with an educational yehuda from [employer]. Review of Systems Const Denies chills and Denies fever(s) Eyes Denies blurry vision ENT Denies vertigo, Denies dizziness and Denies sore throat Card Denies chest pain at rest, Denies chest pain with activity, Denies diaphoresis, Denies dyspnea and Denies dyspnea on exertion Resp Denies cough, Denies dyspnea, Denies dyspnea on exertion and Denies wheezing GI Denies abdominal pain, Denies melena, Denies hematochezia, Denies constipation, Denies diarrhea and Denies loose stools Denies hematuria Musc Denies numbness and Denies tingling Skin/Breast Denies lesions Neuro Denies vertigo, Denies dizziness, Denies numbness and Denies tingling Psych Denies anxiety, Denies depression, Denies homicidal ideation, Denies suicidal ideation and Denies other (substance abuse) Aller/Immun Denies wheezing Physical Exam Vital Signs: Last Vital Signs Pulse 73 11/17/22 09:20 BP 118/62 11/17/22 09:20 Pulse Ox 95 11/17/22 09:20 Oxygen Delivery Method Room Air 11/17/22 09:20 BMI result Body Mass Index 37.1 Const General: cooperative Nutritional Appearance: obese Orientation/consciousness: patient oriented x3 HEENT Head: Yes normal to inspection, Yes normocephalic and Yes atraumatic Ears: TM's normal bilaterally Eyes General: appearance normal, both eyes and all related structures Alignment and Position: alignment normal and position normal Neck Neck: Yes normal visual inspection and Yes no lymphadenopathy Thyroid: Thyroid normal Resp Effort & Inspection: normal respiratory effort Auscultation: clear to auscultation bilaterally Cardio Rate: regular rate Rhythm: regular rhythm Heart sounds: S1 normal heart sound present, S2 normal heart sound present and no murmurs GI Palpation (GI): Soft to palpation and nontender Auscultation: normal bowel sounds Male General Exam: Yes normal external exam Penis: normal penis Scrotum: scrotum normal, testes descended bilaterally and no inguinal hernias Testes: no testicular mass Skin Rashes: no rashes Neuro General: patient oriented x3, moves all extremities, no focal motor deficits and deep tendon reflexes 2+ bilaterally Romberg Test: Negative Psych Appearance: grossly normal Mental Status: mental status grossly normal Speech and movement: Normal speech and movement present Affect: normal affect Attitude: cooperative Thought process: Normal thought process present Thought content: Normal thought content present Insight: Good insight present (Psych) Judgement: Good judgement present (Psych) Assessment & Plan Assessment & Plan (1) Decreased hearing of both ears: Code(s): H91.93 - Unspecified hearing loss, bilateral (2) Encounter for annual wellness visit (AWV) in Medicare patient: Code(s): Z00.00 - Encounter for general adult medical examination without abnormal findings Plan The patient agreed to the use of a medical billing coder for this encounter. Scribed for CLARIBEL Barraza by alejandro Chauhan scribe, on 11/17/2022 at 09:50 EST. Orders: Referrals Speech and Hearing Referral H91.93 - Unspecified hearing loss, bilateral Quality Reporting (2019) Depression/Bipolar (159/160/161/177) PHQ-9: Total score: 3 Coding Level of Care Code Medicare First (G0438) Diagnoses Decreased hearing of both ears H91.93 Encounter for annual wellness visit (AWV) in Medicare patient Z00.00 CPT Codes Advance Care Planning - Time spent: 16-45 minutes ([id number]) Advance Care Planning Forms completed: Health Care Proxy (bringing home to fill out), MOLST (filled out, copy taken, pt has original) and Living will (pt reports this is already done) Time spent: 16-45 minutes
== END 2022-11-17 10:11 | disposition home or self-care (01) ==
PROVIDERS: Visit Provider Nurse Practitioner Family
DX: Z00.00 Encounter for general adult medical examination without abnormal findings (principal); H91.93 Unspecified hearing loss, bilateral
CPT/HCPCS: 99497; G0438

== ENCOUNTER 2022-12-03 07:14 | Outpatient (REF) | payer MEDICARE, OTHER, SELFPAY ==
[2022-12-03 11:36] LABS: Prothrombin Time 24.6 SEC (11.1-13.3)
== END 2022-12-03 07:15 | disposition home or self-care (01) ==
LOC: HO.HMGCLR 07:14
PROVIDERS: PCP Nurse Practitioner Family; Visit Provider Internal Medicine Cardiovascular Disease
DX: I48.91 Unspecified atrial fibrillation (principal); Z79.01 Long term (current) use of anticoagulants
CPT/HCPCS: 36415; 85610

== ENCOUNTER 2022-12-11 12:43 | Outpatient (AMB) | payer MEDICARE, OTHER, SELFPAY ==
--- NOTE | 2022-12-11 12:50 | A.OFFVIS_ITS ---
Intake Vital Signs 12/11/22 12:51 Height 5 ft 10 in Weight 261 lb BMI 37.4 BP 112/74 Blood Pressure Location Rt brachial Position Sitting Pulse 104 H Pulse Source Pulse Oximeter Pulse Oximetry (%) 96 Oxygen Delivery Method Room Air Intake Visit Reasons: Follow up - Confirmed Intake Note: Patient presents for follow up.Patient states no issues or concerns,I haven't seen her in a while I guess is for that reason. Allergies oatmeal Allergy (Unknown, Uncoded 12/11/22 12:54) hives Medication List - Last Reconciled 12/11/22 by RADHA Fountain bupropion HCl 150 mg PO DAILY bupropion HCl 300 mg PO BEDTIME calcium 600 mg PO DAILY@1800 cholecalciferol (vitamin D3) 25 mcg PO DAILY@1800 ferrous sulfate (Iron (ferrous sulfate)) 325 mg PO DAILY@1800 fluoxetine 80 mg PO DAILY hydrochlorothiazide mg PO [mesalamine 4.8 grams PO DAILY] metoprolol succinate ER mg PO multivitamin 1 tab PO DAILY@1800 [Probiotic 1 tab PO DAILY@1800] rosuvastatin 5 mg PO DAILY tamsulosin 0.8 mg (2 x 0.4 mg) PO DAILY 90 days warfarin 7.5 mg PO DAILY HPI HPI Comments History of Present Illness Details 72-yr-old male presents for f/u visit. Pt denies any significant interval medical changes. However, he has started Warfarin for chronic a-fib tx. Pt endorses he is sleeping well w/ CPAP. Uses nightly. Tolerating well. Cleans machine- has a SoClean device. Maybe could change the filters a bit more. CPAP compliance report reveals CPAP 9 cmH2O; overall usage of 100% with usage > 4 hours of 100%; and residual AHI of 1.7/hr. [facility] Medical History (Updated 12/11/22 @ 13:41 by RADHA Fountain) RANULFO (obstructive sleep apnea) BPH (benign prostatic hyperplasia) New onset a-fib Foreign body of finger of right hand Left anterior fascicular block (LAFB) Iron deficiency Depression Vertebral compression fracture PLMD (periodic limb movement disorder) PVD (peripheral vascular disease) Dyslipidemia HTN (hypertension) Crohn's disease Venous insufficiency of both lower extremities Surgical History History of cholecystectomy Status post endovenous radiofrequency ablation (RFA) of saphenous vein Family History Father Cancer of prostate Mother Anxiety Sister Breast cancer Sister Nephritis Sister No problems noted. Sister No problems noted. Sister No problems noted. Daughter Substance use disorder Mental health disorder Daughter No problems noted. Daughter No problems noted. Brother No problems noted. Brother No problems noted. Brother Epilepsy Paternal Grandfather Substance use disorder Social History Housing: House Alcohol intake: never Patient Tobacco Use Status: Former Tobacco user Quit Date: 1963 Years Smoked: 50 years ago e-Cigarette/Vaping Use: Never Used Second Hand Smoke Exposure: No service: Yes Current occupational status: retired Cognitive needs: No Hearing needs: No Vision needs: No Review of Systems Const All systems reviewed & are unremarkable except as noted in HPI and below Physical Exam Vital Signs: Last Vital Signs Pulse 104 H 12/11/22 12:51 BP 112/74 12/11/22 12:51 Pulse Ox 96 12/11/22 12:51 Oxygen Delivery Method Room Air 12/11/22 12:51 BMI result Body Mass Index 37.4 Const General: cooperative and no acute distress Orientation/consciousness: patient oriented x3 HEENT Head: Yes normocephalic Resp Effort & Inspection: normal respiratory effort and able to speak in complete sentences Neuro General: patient oriented x3, gait normal and CN's II-XI intact bilaterally Cognition (Neuro): normal cognition Motor exam (neuro): 5/5 motor strength present throughout Psych Appearance: grossly normal Mental Status: mental status grossly normal Speech and movement: Normal speech and movement present Affect: normal affect Attitude: cooperative Thought process: Normal thought process present Thought content: Normal thought content present Insight: Good insight present (Psych) Judgement: Good judgement present (Psych) Assessment & Plan Assessment & Plan (1) RANULFO (obstructive sleep apnea): Code(s): G47.33 - Obstructive sleep apnea (adult) (pediatric) Plan Continue CPAP 9cmH2O nightly > 4 hours, as pt has had good clinical effect with use with good reduction in residual AHI. . Clean machine and change filters routinely. Coding Level of Care Code Est Pt Level 3 (76217) Diagnoses RANULFO (obstructive sleep apnea) G47.33
[2022-12-11 12:51] VITALS: BP 112/74; PULSE 104; O2SAT 96; BMI 37.4
== END 2022-12-11 13:17 | disposition home or self-care (01) ==
PROVIDERS: PCP Nurse Practitioner Family; Visit Provider Nurse Practitioner Family
DX: G47.33 Obstructive sleep apnea (adult) (pediatric) (principal)
CPT/HCPCS: 99213

== ENCOUNTER → 2022-12-11 12:43 | Outpatient (BNVA) | payer MEDICARE, OTHER, SELFPAY | PROVIDERS: PCP Nurse Practitioner Family; Visit Provider Nurse Practitioner Family | DX: G47.33 Obstructive sleep apnea (adult) (pediatric) (principal); Z99.89 Dependence on other enabling machines and devices | CPT/HCPCS: 99212 ==

== ENCOUNTER 2023-01-01 13:31 | Outpatient (REF) | payer MEDICARE, OTHER, SELFPAY | END 2023-01-01 13:32 | disposition home or self-care (01) | LOC: HO.HMGCLR 13:31 | PROVIDERS: PCP Nurse Practitioner Family; Visit Provider Internal Medicine Cardiovascular Disease | DX: I48.91 Unspecified atrial fibrillation (principal); Z79.01 Long term (current) use of anticoagulants | CPT/HCPCS: 36415; 85610 ==

== ENCOUNTER 2023-01-25 10:01 | Outpatient (AMB) | payer MEDICARE, OTHER, SELFPAY ==
--- OUTSIDE RECORDS SUMMARY | 2023-01-25 10:03 | XMS_ITS | Patient Health Record ---
Author Name Unknown Organization [facility] Address [address] [place] [address] Care Team Providers Care Sample Tester Grinder Name Role Phone LIANNA MARIAH Primary Care Provider Steven Florence [phone] ALLERGIES No Known Allergies RESULTS Component Value Reference Range Notes Calprotectin, Fecal Reviewed date:05/28/2022 11:32:46 AM Interpretation: Performing Lab:[facility], [address] [place] [phone] Notes/Report: Calprotectin, Fecal 105 Reference Range: <50 Normal 50-120 Borderline >120 Elevated Calprotectin in Crohn's disease and ulcerative colitis can be five to several thousand times above the reference population (50 mcg/g or less). Levels are usually 50 mcg/g or less in healthy patients and with irritable bowel syndrome. Repeat testing in 4-6 weeks is suggested for borderline values. THIS TEST WAS PERFORMED AT: [facility] [address] [place] [address] SOLANGE COURTNEY MD,PHD,SHANNAN GI PANEL Reviewed date:05/27/2022 07:07:00 PM Interpretation: Performing Lab:[address] [phone] Notes/Report: Campylobacter Not Detected Not Detect. Plesiomonas shigelloides [...] E. coli O157 Not applicable Not Detect. E. coli containing the O157 antigen are a subset of Shiga-like toxin-producing E. coli (STEC). Shigella sp./EIEC Not Detected Not Detect. Cryptosporidium Not Detected Not Detect. Cyclospora cayetanensis Not Detected Not Detect. Entamoeba histolytica Not Detected Not Detect. Giardia lamblia Not Detected Not Detect. Adenovirus F 40/41 Not Detected Not Detect. Astrovirus Not Detected Not Detect. Norovirus GI/GII Not Detected Not Detect. Rotavirus A Not Detected Not Detect. Sapovirus Not Detected Not Detect. All results must be correlated with clinical findings. Negative results do not exclude the possibility of gastrointestinal infection and should not be used as the sole basis for diagnosis, treatment, or other management decisions. Virus, bacteria, and parasite nucleic acid may persist in vivo independently of organism viability. Additionally, some organisms may be carried symptomatically. Detection of organism targets does not imply that the corresponding organisms are infectious or are the causative agents for clinical symptoms. There is a risk of false negative values due to the presence of sequence variants in the gene targets of the assay, amplification inhibitors in specimens, or inadequate numbers of organisms for amplification. The identification of several diarrheagenic E. coli pathotypes has historically relied upon phenotypic characteristics. This panel targets genetic determinants characteristic of most pathogenic strains, but may not detect all strains having phenotypic characteristics of a pathotype. The performance of this test has not been established for monitoring treatment of infection with any of the panel organisms. This assay is performed by Multiplexed PCR, utilizing the DocRun Array. Complete Blood Count Auto Di ff Reviewed date:05/20/2022 09:35:16 PM Interpretation: Performing Lab:[facility], [address] [place] [phone] Notes/Report: White Blood Count 4.4 4.8-10.8 X10*3/uL Red Blood Count 4.20 4.60-5.80 X10*6/uL Hemoglobin 12.8 14.0-18.0 g/dl Hematocrit 39.4 42.0-52.0 % Mean Corpuscular Volume 93.8 80.0-98.0 fL Mean Corpuscular Hemoglobin 30.5 27.0-33.0 pg Mean Corpuscular HGB Conc 32.5 31.0-36.0 g/dl Red Cell Distribution Width 14.2 11.0-16.0 % Platelet Count 260 160-400 X10*3/uL Mean Platelet Volume 9.9 9.4-12.4 fL Neutrophils Percent Auto 48.0 45-73 % Imm Gran Pct Auto 0.5 0.0-0.4 % Lymphocytes Percent Auto 30.0 20-40 % Monocytes Percent Auto 11.7 2-11 % Eosinophils Percent Auto 8.0 0-4 % Basophils Percent Auto 1.8 0-2 % NRBC Pct Auto 0.0 0.0-0.2 /100WBC Neutrophils Absolute Auto 2.1 2.0-8.3 x10*3/u L Imm Gran Abs Auto 0.02 0.00-0.03 X10*3/uL Lymphocytes Absolute Auto 1.3 1.2-4.9 X10*3/u L Monocytes Absolute Auto 0.5 0.1-1.2 X10*3/uL Eosinophils Absolute Auto 0.4 0.0-0.4 X10*3/u L Basophils Absolute Auto 0.1 0.0-0.2 X10*3/uL NRBC Abs Auto 0.000 0.0-0.012 X10*3/uL Erythrocyte Sedimentation Ra te Reviewed date:05/21/2022 06:32:13 PM Interpretation: Performing Lab:[facility], [address] [place] [phone] Notes/Report: Erythrocyte Sedimentation Rate 14 0-15 MM/HR Patients with polycythemia and many hemoglobin abnormalities may have depressed sed rates whereas patients with anemia may have elevated sed rates. Liver Panel Reviewed date:05/20/2022 09:35:40 PM Interpretation: Performing Lab:[facility], [address] [place] [phone] Notes/Report: Bilirubin Total 0.7 0.0-1.0 mg/dL Bilirubin Direct 0.3 0.0-0.5 mg/dL Aspartate Amino Transferase 17 5-37 U/L Alanine Aminotransferase 18 0-40 U/L Total Protein 6.3 6.5-8.0 g/dL Albumin Level 3.8 3.5-5.0 g/dL Alkaline Phosphatase 85 39-117 U/L C Reactive Protein Reviewed date:05/20/2022 09:35:48 PM Interpretation: Performing Lab:[facility], [address] [place] [phone] Notes/Report: C Reactive Protein 0.27 < or = 0.50 mg/dL Leukocytes Stool Qualitative Reviewed date:05/21/2022 06:31:47 PM Interpretation: Performing Lab:[facility], [address] [place] [phone] Notes/Report: Leukocytes Stool Qualitative NEGATIVE NEGATIVE CDiff Gene PCR Reviewed date:05/21/2022 06:32:03 PM Interpretation: Performing Lab:[facility], [address] [place] [phone] Notes/Report: CDiff Gene PCR TNP Negative Test Not Performed: Formed specimens are not appropriate for this testing. Please contact Microbiology within 2 days of collection if further review of this case is indicated. Pathology (Not yet reviewed by provider) Interpretation: Performing Lab:[facility], [address] [place] [phone] Notes/Report: REASON FOR REFERRAL No Information MEDICATIONS Medication SIG (Take, Route, Frequency, Duration) Notes Start Date End Date Status Tamsulosin HCl 0.4 MG 1 capsule Orally Once a day Active buPROPion HCl ER (XL) 150 MG 1 tablet in the morning Orally Once a day Active FLUoxetine HCl 40 MG 2 capsule Orally Once a day Active Antacid 500 MG 1 tablet Orally Once a day Active Multi Vitamin/Minerals - 1 Orally QD Active Probiotic 250 MG 1 capsule Orally once a day Active Iron 325 (65 Fe) MG 1 tablet Orally Once a day Active Mesalamine 1.2 GM 4 Orally Once a day Starting 05/20/2022 Active Canasa 1000 MG 1 suppository at bedtime Rectal Once a day Not-Taking Balsalazide Disodium 750 MG 3 Orally TID for 30 day(s) Stopped in Nov04/24/2020 Not-Taking Metoprolol Succinate ER 25 MG TAKE 1 TABLET BY MOUTH ONCE DAILY IN THE MORNING . DO NOT CRUSH OR CHEW Diagnosis Unavailable Oral for 30 Active rOPINIRole HCl 0.25 MG 1 tablet Orally Three times a day Active IMMUNIZATIONS Vaccine Route Administration Date Status Comme nts Influenza Unknown 11/27/2017 Administered Influenza Unknown 05/19/2022 Administered SOCIAL HISTORY Tobacco Use: Social History Observation Description Date Details (start date - stop date) Never Smoker NA - NA Sex Assigned At : Social History Observation Description Sex Assigned At Unknown Tobacco Use/Smoking Question Answer Notes Patient is a nonsmoker Alcohol Screen Question Answer Notes Did you have a drink containing alcohol in the p ast year? No Points 0 Interpretation Negative PROBLEMS Problem Type ICD Code Onset Dates Problem Status W/U Status Risk SNOMED Code Notes Problem Crohns disease without complication, unspecified gastrointestinal tract location (K50.90) Active confirmed 45521489 Problem Crohn''s disease of large intestine without complication (K50.10) Active confirmed 8681193 Problem Rectal bleeding (K62.5) Active confirmed 39927412 Problem Diarrhea, unspecified type (R19.7) Active confirmed 26723911 Problem Crohn's disease of colon (K50.10) Active confirmed Crohn's disea se of colon (43990666) Problem Diverticulosis of large intestine without perforation or abscess without bleeding (K57.30) Active confirmed Diverticul ar disease of colon (225951634) Encounters Encounter Location Date Provider Diagnosis [facility] [address] [place] [phone] 06/24/2022 Steven Guan Crohn's disease of colon K50.10 ; Other hemorrhoids K64.8 ; Diverticulosis of large intestine without perforation or abscess without bleeding K57.30 [address] Rectal bleeding K62.5 [facility] [address] [place] [phone] 05/19/2022 Steven Guan Crohn''s disease of large intestine without complication K50.10 ; Rectal bleeding K62.5 and Diarrhea, unspecified type R19.7 [facility] [address] [place] [phone] 12/29/[address] [facility] [address] [place] [phone] 03/25/2022 Steven Guan [facility] [address] [place] [phone] 03/27/[address] [facility] [address] [place] [phone] 04/06/[address] [facility] [address] [place] [phone] 06/08/[address] [facility] [address] [facility] [address] [place] [address] 06/29/[address] [facility] [address] [facility] [address] [place] [address] 12/29/2022 Steven Guan ASSESSMENTS Encounter Date Diagnosis Assessment Notes Treatment Notes Treatment Clinical Notes 06/24/2022 Other hemorrhoids (ICD-10 - K64.8) 06/24/2022 Crohn's disease of colon (ICD-10 - K50.10) 05/19/2022 Rectal bleeding (ICD-10 - K62.5) Stop Iron for 1 week before the colonoscopy 05/19/2022 Crohn''s disease of large intestine without complication (ICD-10 - K50.10) 06/24/2022 Diverticulosis of large intestine without perforation or abscess without bleeding (ICD-10 - K57.30) 05/19/2022 Diarrhea, unspecifie d type (ICD-10 - R19.7) 06/24/2022 Rectal bleeding (ICD-10 - K62.5) PLAN OF TREATMENT Pending Test Test Name Order Date LIVER PROFILE 05/19/2022 CRP 05/19/2022 CBC w DIFF 05/19/2022 SED RATE (ESR) 05/19/2022 STOOL WBC 05/19/2022 C DIFFICILE RFLX PCR 05/19/2022 Pathology 06/24/2022 Future Test Test Name Order Date COLONOSCOPY 05/19/2022 Next Appt Details Provider Name:Steven Guan , 05/13/2023 10:20:00 AM, [address] [facility], [address], [place], [address], Insurance Providers Payer Name Payer Address Payer Phone Subscriber Number Group Number Insured Name Patient Relationship to Insured Coverage Start Date Coverage End Date MEDICARE OF [place] [address] [place] [id number] SEDA BOND Self - patient is the insured [employer] [address] JASON BAKER [phone] [id number] RONDA, SEDA Self - patient is the insured MEDICAL (GENERAL) HISTORY Medical History History ICD Code Denies OK,DM,CVA,Lung disease,renal dise ase Crohn's colitis diagnosed in 2012--seen by Dr. Hurtado in [place]--- he had a negative colonoscopy in 2011, other than hemorrhoids, for evaluation of bleeding; a colonoscopy January 2013 describe some patchy areas of colitis in the rectum and sigmoid colon, although biopsies were described as normal from that area. However, he has done well on mesalamine without any further issues. Neither colonoscopy found any polyps BPH Depression Sleep apnea--uses a CPAP EGD in 2015 with his GI MD azael Louis [place] described a mild stricture which was dilated with a large Lawrence dilator--there was a mild duodenitis and gastritis, but biopsies from these areas were normal and there was no H. pylori Afib- manager balance is Dr. Major in [place], [place] Surgical History Surgery Date(Month/Year) Cholecystectomy Back surgery Vein surgery of LE's 04/2018 and 05/2018
--- NOTE | 2023-01-25 12:39 | AM.OFFWIN_ITS ---
Intake Vital Signs 01/25/23 12:40 Height 5 ft 10 in Weight 269 lb 8 oz BMI 38.7 BP 120/80 Blood Pressure Location Lt brachial Position Sitting Pulse 98 Pulse Source Pulse Oximeter Temp 98.4 F Temp Source Oral Pulse Oximetry (%) 97 Oxygen Delivery Method Room Air Intake Visit Reasons: EST/tick bite left side of back(lobby) Intake Note: Pt presents to the office today for c/o a tick bite on his back. Pt noticed the tick on 01/23/23. Pt states his tried to remove the tick but isn't sure if she got it all out. Patient Tobacco Use Status: Former Tobacco user Quit Date: 1965 Allergies oatmeal Allergy (Unknown, Uncoded 01/25/23 12:59) hives Medication List - Last Reconciled 01/25/23 by Daniel Curran MD bupropion HCl 150 mg PO DAILY bupropion HCl 300 mg PO BEDTIME calcium 600 mg PO DAILY@1800 cholecalciferol (vitamin D3) 25 mcg PO DAILY@1800 ferrous sulfate (Iron (ferrous sulfate)) 325 mg PO DAILY@1800 fluoxetine 80 mg PO DAILY hydrochlorothiazide mg PO [mesalamine 4.8 grams PO DAILY] metoprolol succinate ER mg PO multivitamin 1 tab PO DAILY@1800 [Probiotic 1 tab PO DAILY@1800] rosuvastatin 5 mg PO DAILY tamsulosin 0.8 mg (2 x 0.4 mg) PO DAILY 90 days warfarin 7.5 mg PO DAILY HPI EST/tick bite left side of back(lobby) HPI Details 73-year-old male presents to the office for a sick visit. Patient had a tick bite and would like the area of the wound examined. [facility] Medical History RANULFO (obstructive sleep apnea) BPH (benign prostatic hyperplasia) New onset a-fib Foreign body of finger of right hand Left anterior fascicular block (LAFB) Iron deficiency Depression Vertebral compression fracture PLMD (periodic limb movement disorder) PVD (peripheral vascular disease) Dyslipidemia HTN (hypertension) Crohn's disease Venous insufficiency of both lower extremities Surgical History History of cholecystectomy Status post endovenous radiofrequency ablation (RFA) of saphenous vein Family History Father Cancer of prostate Mother Anxiety Sister Breast cancer Sister Nephritis Sister No problems noted. Sister No problems noted. Sister No problems noted. Daughter Substance use disorder Mental health disorder Daughter No problems noted. Daughter No problems noted. Brother No problems noted. Brother No problems noted. Brother Epilepsy Paternal Grandfather Substance use disorder Social History Housing: House Alcohol intake: never Patient Tobacco Use Status: Former Tobacco user Quit Date: 1965 Years Smoked: 50 years ago e-Cigarette/Vaping Use: Never Used Second Hand Smoke Exposure: No service: Yes Current occupational status: retired Cognitive needs: No Hearing needs: No Vision needs: No Physical Exam Vital Signs: Last Vital Signs Temp 98.4 F 01/25/23 12:40 Pulse 98 01/25/23 12:40 BP 120/80 01/25/23 12:40 Pulse Ox 97 01/25/23 12:40 Oxygen Delivery Method Room Air 01/25/23 12:40 BMI result Body Mass Index 38.7 Skin Other: Back: Tiny erythematous area. No evidence or remnants of the tick present. Assessment & Plan Assessment & Plan (1) Tick bite: Code(s): W57.XXXA - Bitten or stung by nonvenomous insect and other nonvenomous arthropods, initial encounter Plan: doxycycline single dose called in. Signs and symptoms of Lyme disease explained. Lyme titer in 3 weeks. Coding Level of Care Code Est Pt Level 3 (67399) Diagnoses Tick bite W57.XXXA
[2023-01-25 12:40] VITALS: BP 120/80; PULSE 98; TEMP 36.9; O2SAT 97; BMI 38.7
== END 2023-01-25 13:10 | disposition home or self-care (01) ==
PROVIDERS: PCP Nurse Practitioner Family; Visit Provider Internal Medicine
DX: S30.860A Insect bite (nonvenomous) of lower back and pelvis, initial encounter (principal); W57.XXXA Bitten or stung by nonvenomous insect and other nonvenomous arthropods, initial encounter
CPT/HCPCS: 99213

== ENCOUNTER 2023-02-03 06:53 | Outpatient (REF) | payer MEDICARE, OTHER, SELFPAY ==
[2023-02-03 12:26] LABS: INTERNATIONAL NORM RATIO 2.3 (0.9-1.1); Prothrombin Time 28.5 SEC (11.1-13.3)
== END 2023-02-03 06:54 | disposition home or self-care (01) ==
LOC: HO.HMGCLR 06:53
PROVIDERS: PCP Nurse Practitioner Family; Visit Provider Internal Medicine Cardiovascular Disease
DX: I48.91 Unspecified atrial fibrillation (principal); Z79.01 Long term (current) use of anticoagulants
CPT/HCPCS: 36415; 85610

== ENCOUNTER 2023-03-03 07:28 | Outpatient (REF) | payer MEDICARE, OTHER, SELFPAY ==
[2023-03-03 11:38] LABS: INTERNATIONAL NORM RATIO 2.8 (0.9-1.1); Prothrombin Time 33.7 SEC (11.1-13.3)
[2023-03-03 12:04] LABS: Prostate Specific Antigen Scr 0.23 ng/mL (<0.05-4.0)
[2023-03-04 18:03] LABS: Lyme Abs Screen <0.90 index
== END 2023-03-03 07:29 | disposition home or self-care (01) ==
LOC: HO.HMGCLR 07:28
PROVIDERS: Absent Provider Internal Medicine; PCP Nurse Practitioner Family; Referring Provider Internal Medicine Cardiovascular Disease; Visit Provider Nurse Practitioner Family
DX: T14.8XXA Other injury of unspecified body region, initial encounter (principal); I48.91 Unspecified atrial fibrillation; W57.XXXA Bitten or stung by nonvenomous insect and other nonvenomous arthropods, initial encounter; Y93.9 Activity, unspecified; Y92.9 Unspecified place or not applicable; Y99.9 Unspecified external cause status; Z79.01 Long term (current) use of anticoagulants; Z12.5 Encounter for screening for malignant neoplasm of prostate
CPT/HCPCS: 36415; 84153; 85610; 86617; 86618

== ENCOUNTER 2023-03-24 08:34 | Outpatient (AMB) | payer MEDICARE, OTHER, SELFPAY ==
--- NOTE | 2023-03-24 08:41 | A.OFFPC_ITS ---
Vital Signs 03/24/23 08:43 Weight 270 lb BP 120/78 Blood Pressure Location Rt brachial Position Sitting Pulse 97 Pulse Source Pulse Oximeter Pulse Oximetry (%) 99 Oxygen Delivery Method Room Air Intake Visit Reasons: 4 moonth fu Allergies oatmeal Allergy (Unknown, Uncoded 03/24/23 08:44) hives Medication List - Last Reconciled 03/24/23 by RADHA Godfrey-SURAJ bupropion HCl 150 mg PO DAILY bupropion HCl 300 mg PO BEDTIME calcium 600 mg PO DAILY@1800 cholecalciferol (vitamin D3) 25 mcg PO DAILY@1800 ferrous sulfate (Iron (ferrous sulfate)) 325 mg PO DAILY@1800 fluoxetine 80 mg PO DAILY metoprolol succinate ER mg PO multivitamin 1 tab PO DAILY@1800 [Probiotic 1 tab PO DAILY@1800] rosuvastatin 5 mg PO DAILY tamsulosin 0.8 mg (2 x 0.4 mg) PO DAILY 90 days warfarin 7.5 mg PO DAILY Tobacco use date assessed: 07/16/22 Fall risk assessment: No Falls in past year Last assessed Fall Risk: 03/24/23 Dental Screening Dental Screen Date: 03/24/23 Did you have a dental visit in the last 12 months?: No Did you have a dental problem in the last 6 months where you did not have access to dental care?: No Was dental information given to patient?: Patient declined HPI 4 moonth fu HPI Details Pt c/o right heel pain. He reports pain to the right side of his heel. Pt states that the pain worsens throughout the day and with weight bearing. ? heel spur. Will order XR. Hx of afib, currently on coumadin. Pt is following up with cardiology. Denies chest pain, shortness of breath, and dizziness. [facility] Medical History RANULFO (obstructive sleep apnea) BPH (benign prostatic hyperplasia) New onset a-fib Foreign body of finger of right hand Left anterior fascicular block (LAFB) Iron deficiency Depression Vertebral compression fracture PLMD (periodic limb movement disorder) PVD (peripheral vascular disease) Dyslipidemia HTN (hypertension) Crohn's disease Venous insufficiency of both lower extremities Surgical History History of cholecystectomy Status post endovenous radiofrequency ablation (RFA) of saphenous vein Family History Father Cancer of prostate Mother Anxiety Sister Breast cancer Sister Nephritis Sister No problems noted. Sister No problems noted. Sister No problems noted. Daughter Substance use disorder Mental health disorder Daughter No problems noted. Daughter No problems noted. Brother No problems noted. Brother No problems noted. Brother Epilepsy Paternal Grandfather Substance use disorder Social History Housing: House Alcohol intake: never Patient Tobacco Use Status: Former Tobacco user Quit Date: 1965 Years Smoked: 50 years ago e-Cigarette/Vaping Use: Never Used Second Hand Smoke Exposure: No service: Yes Current occupational status: retired Cognitive needs: No Hearing needs: No Vision needs: No Questionnaire Thrive Questionnaire Date Thrive assessed: 07/16/22 TAM-7 AMB Questionnaire TAM-7 Date TAM - 7 assessed: 07/16/22 Source: Developed by Drs. Steven Kaplan, Alana Day, Perry Elmore and colleagues, with an educational yehuda from [employer]. Review of Systems Const Reports as per HPI Physical exam (Primary Care) Vital Signs: Last Vital Signs Pulse 97 03/24/23 08:43 BP 120/78 03/24/23 08:43 Pulse Ox 99 03/24/23 08:43 Oxygen Delivery Method Room Air 03/24/23 08:43 Tobacco/Smoking Status: Tobacco use Status Tobacco use date assessed 07/16/22 03/24/23 08:42 Patient Tobacco Use Status Former Tobacco user 03/24/23 08:42 e-Cigarette/Vaping Use Never Used 03/24/23 08:42 Thrive Assessment: Date of Thrive Assessment Date Thrive assessed 07/16/22 03/24/23 08:42 Const General: cooperative Orientation/consciousness: patient oriented x3 Resp Effort & Inspection: normal respiratory effort Auscultation: clear to auscultation bilaterally Cardio Rate: regular rate Rhythm: abnormal rhythm irregularly irregular Heart sounds: S1 normal heart sound present and S2 normal heart sound present Neuro General: patient oriented x3 Extrem Other: +1-2 edema to BLE, with dorsi flexion of toes against resistance and palpation no pain noted Psych Appearance: grossly normal Mental Status: mental status grossly normal Speech and movement: Normal speech and movement present Affect: normal affect Attitude: cooperative Thought process: Normal thought process present Thought content: Normal thought content present Insight: Good insight present (Psych) Judgement: Good judgement present (Psych) Immunizations pneumoc 20-teo conj-dip cr(PF) 0.5 mL IM syringe Performing Provider: CLARIBEL Godfrey Performing Location: [facility] [place] [facility] Administered by: TOMEKA Camarena on 03/24/23 09:32 Dose Route Admin Location Dispensed Lot Number Expiration Date [employer] 0.5 mL IM Right Deltoid 0.5 mL [id number] 04/29/24 7741-4344-20 [employer] VIS Given Date VIS Provided VIS Publication Date 03/24/23 Single Vaccine 21 Eligibility Eligibility Date Funding Source Not [facility] Eligible 03/24/23 Private Assessment and Plan Assessment & Plan (1) A-fib: Code(s): I48.91 - Unspecified atrial fibrillation Plan: Labs ordered (2) Pain of right heel: Code(s): M79.671 - Pain in right foot Plan: XR ordered, ? heel spur Plan The patient agreed to the use of a healthcare or medical for this encounter. Scribed for CLARIBEL Barraza by [facility] healthcare or medical, on 03/24/2023 at 09:00 EST. Orders: Orders Complete Blood Count Auto Diff Today I48.91 - Unspecified atrial fibrillation TSH reflex Free T4 Today I48.91 - Unspecified atrial fibrillation UA CC w/rflx Micro + Cult Today I48.91 - Unspecified atrial fibrillation Lipid Panel Today I48.91 - Unspecified atrial fibrillation XR foot RT 2V Today M79.671 - Pain in right foot Pneumococcal 20 Immunization Today Z23 - Encounter for immunization Comprehensive [place]. Panel Fast Today I48.91 - Unspecified atrial fibrillation Medications: New hydrocortisone 2.5% 1 appl topical BID PRN 30 grams 0RF skin irritation Coding Level of Care Code Est Pt Level 3 (91748) Diagnoses A-fib I48.91 Pain of right heel M79.671
[2023-03-24 08:43] VITALS: BP 120/78; PULSE 97; O2SAT 99
== END 2023-03-24 09:18 | disposition home or self-care (01) ==
PROVIDERS: PCP Nurse Practitioner Family; Visit Provider Nurse Practitioner Family
DX: I48.91 Unspecified atrial fibrillation (principal); M79.671 Pain in right foot; Z23 Encounter for immunization
CPT/HCPCS: 90471; 90677; 99213

== ENCOUNTER 2023-04-14 08:44 | Outpatient (REF) | payer MEDICARE, OTHER, SELFPAY ==
[2023-04-14 11:35] LABS: INTERNATIONAL NORM RATIO 1.8 (0.9-1.1); Prothrombin Time 21.9 SEC (11.1-13.3)
== END 2023-04-14 08:45 | disposition home or self-care (01) ==
LOC: HO.HMGCLR 08:44
PROVIDERS: PCP Nurse Practitioner Family; Visit Provider Internal Medicine Cardiovascular Disease
DX: I48.91 Unspecified atrial fibrillation (principal); Z79.01 Long term (current) use of anticoagulants
CPT/HCPCS: 36415; 85610

== ENCOUNTER 2023-04-16 06:54 | Outpatient (REF) | payer MEDICARE, OTHER, SELFPAY ==
[2023-04-16 11:30] LABS: MANUAL DIFF FLAG NO
[2023-04-16 11:49] LABS: Appearance Urine Clear; Color Urine Yellow; Glucose Urine UA Negative (Negative); Leukocyte Esterase Urine Negative (Negative); Nitrite Urine Negative (Negative); PH 5.5 (5.0-9.0); Specific Gravity - Urine 1.025 (1.005-1.025); Urine Blood Negative (Negative); Urine Ketones Trace mg/dL (Negative); Urine Protein Negative (Neg-Trace)
[2023-04-16 12:04] LABS: Basophils Absolute Auto 0.1 X10*3/uL (0.0-0.2); Basophils Percent Auto 1.3 % (0-2); Eosinophils Absolute Auto 0.5 X10*3/uL (0.0-0.4); Eosinophils Percent Auto 8.4 % (0-4); Hematocrit 38.8 % (42.0-52.0); Hemoglobin 12.4 g/dl (14.0-18.0); Imm Gran Abs Auto 0.02 X10*3/uL (0.00-0.03); Imm Gran Pct Auto 0.4 % (0.0-0.4); Lymphocytes Absolute Auto 1.9 X10*3/uL (1.2-4.9); Lymphocytes Percent Auto 34.2 % (20-40); Mean Corpuscular Hemoglobin 30.3 pg (27.0-33.0); Mean Corpuscular Volume 94.9 fL (80.0-98.0); Monocytes Absolute Auto 0.6 X10*3/uL (0.1-1.2); Monocytes Percent Auto 10.9 % (2-11); Neutrophils Absolute Auto 2.5 x10*3/uL (2.0-8.3); Neutrophils Percent Auto 44.8 % (45-73); Platelet Count 270 X10*3/uL (160-400); Red Blood Count 4.09 X10*6/uL (4.60-5.80); Red Cell Distribution Width 13.6 % (11.0-16.0); White Blood Count 5.6 X10*3/uL (4.8-10.8)
[2023-04-16 13:02] LABS: Alanine Aminotransferase 25 U/L (0-40); Albumin Level 3.8 g/dL (3.5-5.0); Alkaline Phosphatase 88 U/L (39-117); Anion Gap 12 (12-20); Aspartate Amino Transferase 24 U/L (5-37); Bilirubin Total 0.3 mg/dL (0.0-1.0); Blood Urea Nitrogen 18 mg/dL (9-16); Calcium 9.6 mg/dL (8.4-10.2); Carbon Dioxide 29 mmol/L (22-29); Chloride 106 mmol/L (96-108); Cholesterol 131 mg/dL (<200); Estimated Glomerular Filt Rate > 60; Glucose Fasting 90 mg/dL (60-99); HDL Cholesterol 42 mg/dL (>40); LDL Cholesterol Calculated 65 mg/dL (<100); Potassium 4.3 mmol/L (3.3-5.1); Sodium 143 mmol/L (135-145); TSH reflex Free T4 2.56 uIU/mL (0.32-4.0); Total Protein 7.1 g/dL (6.5-8.0); Triglycerides 122 mg/dL (<150)
== END 2023-04-16 06:55 | disposition home or self-care (01) ==
LOC: HO.HMGCLDS 06:54
PROVIDERS: PCP Nurse Practitioner Family; Visit Provider Nurse Practitioner Family
DX: I48.91 Unspecified atrial fibrillation (principal)
CPT/HCPCS: 36415; 80053; 80061; 81003; 84443; 85025

== ENCOUNTER 2023-05-14 06:36 | Outpatient (REF) | payer MEDICARE, OTHER, SELFPAY ==
[2023-05-14 11:20] LABS: Prothrombin Time 12.5 SEC (11.1-13.3)
== END 2023-05-14 06:37 | disposition home or self-care (01) ==
LOC: HO.HMGCLR 06:36
PROVIDERS: PCP Nurse Practitioner Family; Visit Provider Internal Medicine Cardiovascular Disease
DX: I48.91 Unspecified atrial fibrillation (principal); Z79.01 Long term (current) use of anticoagulants
CPT/HCPCS: 36415; 85610

== ENCOUNTER 2023-06-03 07:35 | Outpatient (REF) | payer MEDICARE, OTHER, SELFPAY ==
[2023-06-03 11:46] LABS: INTERNATIONAL NORM RATIO 1.5 (0.9-1.1); Prothrombin Time 18.3 SEC (11.1-13.3)
== END 2023-06-03 07:36 | disposition home or self-care (01) ==
LOC: HO.HMGCLR 07:35
PROVIDERS: PCP Nurse Practitioner Family; Visit Provider Internal Medicine Cardiovascular Disease
DX: I48.91 Unspecified atrial fibrillation (principal); Z79.01 Long term (current) use of anticoagulants
CPT/HCPCS: 36415; 85610

== ENCOUNTER 2023-06-10 07:56 | Outpatient (REF) | payer MEDICARE, OTHER, SELFPAY ==
[2023-06-10 11:45] LABS: INTERNATIONAL NORM RATIO 1.7 (0.9-1.1); Prothrombin Time 21.2 SEC (11.1-13.3)
== END 2023-06-10 07:57 | disposition home or self-care (01) ==
LOC: HO.HMGCLR 07:56
PROVIDERS: PCP Nurse Practitioner Family; Visit Provider Internal Medicine Cardiovascular Disease
DX: I48.91 Unspecified atrial fibrillation (principal); Z79.01 Long term (current) use of anticoagulants
CPT/HCPCS: 36415; 85610

== ENCOUNTER 2023-06-17 07:25 | Outpatient (REF) | payer MEDICARE, OTHER, SELFPAY ==
[2023-06-17 11:34] LABS: INTERNATIONAL NORM RATIO 1.9 (0.9-1.1); Prothrombin Time 22.7 SEC (11.1-13.3)
== END 2023-06-17 07:26 | disposition home or self-care (01) ==
LOC: HO.HMGCLR 07:25
PROVIDERS: PCP Nurse Practitioner Family; Visit Provider Internal Medicine Cardiovascular Disease
DX: I48.91 Unspecified atrial fibrillation (principal); Z79.01 Long term (current) use of anticoagulants
CPT/HCPCS: 36415; 85610

== ENCOUNTER 2023-06-24 08:53 | Outpatient (REF) | payer MEDICARE, OTHER, SELFPAY ==
[2023-06-24 10:24] LABS: INTERNATIONAL NORM RATIO 2.1 (0.9-1.1); Prothrombin Time 25.7 SEC (11.1-13.3)
== END 2023-06-24 08:54 | disposition home or self-care (01) ==
LOC: HO.HMGCLR 08:53
PROVIDERS: PCP Nurse Practitioner Family; Visit Provider Internal Medicine Cardiovascular Disease
DX: I48.91 Unspecified atrial fibrillation (principal); Z79.01 Long term (current) use of anticoagulants
CPT/HCPCS: 36415; 85610

== ENCOUNTER 2023-07-09 09:17 | Outpatient (REF) | payer MEDICARE, OTHER, SELFPAY | END 2023-07-09 09:18 | disposition home or self-care (01) | LOC: HO.HMGCLR 09:17 | PROVIDERS: PCP Nurse Practitioner Family; Visit Provider Internal Medicine Cardiovascular Disease | DX: I48.91 Unspecified atrial fibrillation (principal); Z79.01 Long term (current) use of anticoagulants | CPT/HCPCS: 36415; 85610 ==

== ENCOUNTER 2023-07-22 07:29 | Outpatient (REF) | payer MEDICARE, OTHER, SELFPAY ==
[2023-07-22 10:41] LABS: INTERNATIONAL NORM RATIO 1.8 (0.9-1.1); Prothrombin Time 21.5 SEC (11.1-13.3)
== END 2023-07-22 07:30 | disposition home or self-care (01) ==
LOC: HO.HMGCLR 07:29
PROVIDERS: PCP Nurse Practitioner Family; Visit Provider Internal Medicine Cardiovascular Disease
DX: I48.91 Unspecified atrial fibrillation (principal); Z79.01 Long term (current) use of anticoagulants
CPT/HCPCS: 36415; 85610

== ENCOUNTER 2023-08-02 06:27 | Outpatient (REF) | payer MEDICARE, OTHER, SELFPAY ==
[2023-08-02 10:54] LABS: INTERNATIONAL NORM RATIO 2.6 (0.9-1.1)
== END 2023-08-02 06:28 | disposition home or self-care (01) ==
LOC: HO.HMGCLR 06:27
PROVIDERS: PCP Nurse Practitioner Family; Visit Provider Internal Medicine Cardiovascular Disease
DX: I48.91 Unspecified atrial fibrillation (principal); Z79.01 Long term (current) use of anticoagulants
CPT/HCPCS: 36415; 85610

== ENCOUNTER 2023-08-10 07:18 | Outpatient (REF) | payer MEDICARE, OTHER, SELFPAY ==
[2023-08-10 10:53] LABS: INTERNATIONAL NORM RATIO 2.1 (0.9-1.1); Prothrombin Time 25.8 SEC (11.1-13.3)
== END 2023-08-10 07:19 | disposition home or self-care (01) ==
LOC: HO.HMGCLR 07:18
PROVIDERS: PCP Nurse Practitioner Family; Visit Provider Internal Medicine Cardiovascular Disease
DX: I48.91 Unspecified atrial fibrillation (principal); Z79.01 Long term (current) use of anticoagulants
CPT/HCPCS: 36415; 85610

== ENCOUNTER 2023-08-17 07:31 | Outpatient (REF) | payer MEDICARE, OTHER, SELFPAY ==
[2023-08-17 11:00] LABS: INTERNATIONAL NORM RATIO 1.6 (0.9-1.1); Prothrombin Time 19.9 SEC (11.1-13.3)
== END 2023-08-17 07:32 | disposition home or self-care (01) ==
LOC: HO.HMGCLDS 07:31
PROVIDERS: PCP Nurse Practitioner Family; Visit Provider Internal Medicine Cardiovascular Disease
DX: I48.91 Unspecified atrial fibrillation (principal); Z79.01 Long term (current) use of anticoagulants
CPT/HCPCS: 36415; 85610

== ENCOUNTER 2023-08-24 12:00 | Outpatient (AMB) | payer MEDICARE, OTHER, SELFPAY ==
--- OUTSIDE RECORDS SUMMARY | 2023-08-24 12:02 | XMS_ITS | Continuity of Care Document ---
Author Organization [facility] Address [address] [place] [address]- Care Team Providers Care Information Assurance Specialist Name Role Phone Not on Staff, PCP Primary Care Physician Unavail able Encounter [facility] [place] [place] Date(s): 06/14/23 - 07/14/23 [facility] [address] [place] [address] [place] Allergies, Adverse Reactions, Alerts No Known Medication [...] Refills, Maintenance, 03/17/22 23:29:00 EST, ER Capsule, [id number], Partial fill upon patient [...] tablet, 0 Refills, Maintenance, 03/17/22 23:28:00EST, Tablet, [id number], Partial fill upon patient request if the prescription is for a schedule II opioid drug., 178, cm, 03/17/22 16:46:00... Start Date: 03/17/22 Status: Ordered Problem List Condition Confirmation Course Effective Dates Status Health St atus Informant Obese class II Confirmed Active Patient Care team information Care Team Personnel Name: Not on Staff, PCP Position: S Physician (General Medicine) Member Role: PCP Care Team Related Persons Name: SHERRON BOND Address: home [address] [place] [phone]
--- OUTSIDE RECORDS SUMMARY | 2023-08-24 12:02 | XMS_ITS | Patient Health Record ---
Author Organization [facility] Address [address] [place] [address] Care Team Providers Care Print Line Inspector Name Role Phone MARIAH DSOUZA Primary Care Provider Steven Florence Unavailable [phone] ALLERGIES No Known Allergies REASON FOR REFERRAL No Information MEDICATIONS Medication SIG (Take, Route, Frequency, Duration) Notes Start Date End Date Status Iron 325 (65 Fe) MG 1 tablet Orally Once a day Active Probiotic 250 MG 1 capsule Orally onc e a day Active Tamsulosin HCl 0.4 MG 1 capsule Orally Once a day Active FLUoxetine HCl 40 MG 2 capsule Orally On ce a day Active buPROPion HCl ER (XL) 150 MG 1 tablet in the morning Orally Once a day Active Warfarin Sodium 5 MG Oral for 90 Active Mesalamine 1.2 GM 4 Orally Once a day Starting 05/20/2022 Active Metoprolol Succinate ER 25 MG TAKE 1 TABLET BY MOUTH ONCE DAILY IN THE MORNING . DO NOT CRUSH OR CHEW Diagnosis Unavailable Oral for 30 Active Lialda 1.2 GM 4 Orally Once a day for 90 days 03/17/2023 Active Multi Vitamin/Minerals - 1 Orally QD Active rOPINIRole HCl 0.25 MG 1 tablet [...] unspecified gastrointestinal tract location (K50.90) Active confirmed 24802106 Problem Crohn''s disease of large intestine without complication (K50.10) Active confirmed 4850531 Problem Rectal bleeding (K62.5) Active confirmed 64007987 Problem Diarrhea, unspecified type (R19.7) Active confirmed 04903325 Problem Crohn's disease of colon (K50.10) Active confirmed Crohn's disea se of colon (31461929) Problem Diverticulosis of large intestine without perforation or abscess without bleeding (K57.30) Active confirmed Diverticul ar disease of colon (950524110) VITAL SIGNS Temperature 97.5 degrees Fahrenheit 05/13/2023 Blood pressure diastolic 00 mm Hg 05/13/2023 Height 70 in 05/13/2023 Blood pressure systolic 00 mm Hg 05/13/2023 Weight 270 lbs 05/13/2023 BMI 38.74 kg/m2 05/13/2023 Encounters Encounter Location Date Provider Diagnosis [facility] [address] [place] [phone] 12/29/2022 Steven Guan [facility] [address] [place] [phone] 05/13/2023 Steven Guan Crohns disease witho ut complication, unspecified gastrointestinal tract location K50.90 and Rectal bleeding K62.5 [facility] [address] [place] [phone] 12/29/2022 Steven Guan [facility] [address] [place] [phone] 03/15/2023 Steven Guan [facility] [address] [place] [phone] 04/30/2023 Steven Guan [facility] [address] [place] [phone] 05/10/2023 Steven Guan ASSESSMENTS Encounter Date Diagnosis Assessment Notes Treatment Notes Treatment Clinical Notes 05/13/2023 Rectal bleeding (ICD-10 - K62.5) Try an over the counter suppository for the hemorrhoids at bedtime if you have bleeding. You can try Preparation H or Anusol. 05/13/2023 Crohns disease witho ut complication, unspecified gastrointestinal tract location (ICD-10 - K50.90) PLAN OF TREATMENT Pending Test Test Name Order Date LIVER PROFILE 05/19/2022 CRP 05/19/2022 CBC w DIFF 05/19/2022 SED RATE (ESR) 05/19/2022 STOOL WBC 05/19/2022 C DIFFICILE RFLX PCR 05/19/2022 Future Test Test Name Order Date COLONOSCOPY 05/19/2022 Next Appt Details Provider Name:Steven Guan , 12/02/2023 10:20:00 AM, [address], [address], [place], [address], Insurance Providers Payer Name Payer Address Payer Phone Subscriber Number Group Number Insured Name Patient Relationship to Insured Coverage Start Date Coverage End Date [place]ICARE OF [place] [address] [place] [address] [id number] SEDA BOND Self - patient is the insured [employer] [address] [place] [address] [id number] SEDA BOND Self - patient is the insured MEDICAL (GENERAL) HISTORY Medical History History ICD Code Denies MD,DM,CVA,Lung disease,renal dise ase Crohn's colitis diagnosed in 2012--seen by Dr. Hurtado in [place]--- he had a negative colonoscopy in 2011, [...] and there was no H. pylori Afib- dermatology physician assistant is Dr. Major in [place], [place] Colonoscopy in 05/2022 was ne gative for active Crohn's and polyps; there was no perianal disease, internal hemorrhoids were noted. Biopsies throughout the colon were negative for any colitis and dysplasia Surgical History Surgery Date(Month/Year) Cholecystectomy Back surgery Vein surgery of LE's 04/2018 and 05/2018
--- OUTSIDE RECORDS SUMMARY | 2023-08-24 12:02 | XMS_ITS | Continuity of Care Document ---
Author Organization [facility] ter Address [address] [place] [id number]- Care Team Providers Care Processing Spec Name Role Phone Pedro Pablo ORELLANA, Emile Hdz Primary Care Physician [phone] Encounter [facility] Date(s): 04/23/23 - 04/23/[address] [address]- Discharge Disposition: A-D/C Home Attending Physician: Aminta Larson DO Admitting Physician: Aminta Larson DO Referring Physician: Not on Staff, Referring MD [...] Refills, Maintenance, 03/17/22 23:29:00 EST, ER Capsule, [id number], Partial fill upon patient [...] tablet, 0 Refills, Maintenance, 03/17/22 23:28:00EST, Tablet, [id number], Partial fill upon patient request if the prescription is for a schedule II opioid drug., 178, cm, 03/17/22 16:46:00... Start Date: 03/17/22 Status: Ordered Problem List Condition Confirmation Course Effective Dates Status [facility] atus Informant Obese class II Confirmed Active Results Radiology Reports * Exam Date Time Procedure Performing Provider Status 04/23/23 2:[address] Abd/Pelvis W/ IV Contrast Only Jhonny Escobedo; Reg (Verified) Notes: (CT Abd/Pelvis W/ IV Contrast Only) Reason For Exam: lower back pain, ho crohns;Pain RESULT: CT Abd/Pelvis W/ IV Contrast Only CT Abd/Pelvis W/ IV Contrast Only Reason: Pain; rectal bleeding, lower back pain, history of Crohn's; Clinical Question(s): Obstruction; TECHNIQUE: Spiral CT through the abdomen and pelvis with IV contrast formatted in 3 planes. 100 cc of Omnipaque 300 was administered intravenously. This study was performed without oral contrast. Weight-based protocol using automatic tube modulation was used to optimize exposure parameters. CTDIvol Body: 22.17 mGy, DLP Body: 1185 mGy*cm. COMPARISON: CXR-05/24/2022. FINDINGS: Independent Contractor View Findings, Lines and Tubes: None. Visualized Chest: Trace bibasilar dependent atelectasis. Linear atelectasis versus scarring at the left lung base. No pleural effusion. The heart is at the upper limits of normal for size. No pericardial effusion. Diaphragm: Intact. The left hemidiaphragm is elevated, new or worsening from the comparison study. Liver: Normal. Gallbladder: Absent consistent with prior cholecystectomy. Bile ducts: No biliary ductal dilation. Spleen: Normal. Pancreas: Mild fatty atrophy. Adrenal glands: Normal. Kidneys and ureters: No hydronephrosis, stones, or suspicious masses. Bilateral perinephric fat stranding, nonspecific. Numerous bilateral simple appearing renal cysts are noted, requiring no dedicated follow up. Bladder: Normal. Reproductive organs: Intraprostatic calcifications. Stomach, small bowel, and large bowel: Type I hiatal hernia. The stomach is unremarkable. Some small bowel air-fluid levels are noted in the left lower abdomen with hyperemic bowel wall. No evidence of obstruction. No colonic or rectal wall thickening. Appendix: Normal. Peritoneum and retroperitoneum: No ascites or pneumoperitoneum. No omental or mesenteric lesions. Lymph nodes: No enlarged lymph nodes. Blood vessels: Mild vascular calcifications but no aneurysm. No evidence of venous thrombosis. Abdominal and pelvic wall: At the level of the umbilicus, there is a 3 cm (603:87) curvilinear segment of apparent abdominal wall musculature that appears slightly detached. Bones: No acute osseous abnormality. Mild multilevel degenerative changes of the visualized spine. Trace retrolisthesis of L2 on L3 and L3 on L4. Minimal spinal asymmetry of the thoracolumbar spine, convex left. IMPRESSION: 1. No wall thickening of the colon and rectum to suggest proctocolitis by CT. However, further evaluation with bleeding scan or colonoscopy may be indicated. 2. Left lower abdomen small bowel loops with air-fluid levels and hyperemic fitzgerald may represent an enteritis. An actionable message (Yellow) has been communicated via the [employer] system on 04/23/2023 3:42 PM, Message ID [id number]. I have personally reviewed the images and I agree with this report. WSN: [id number] Ordering Physician: Junaid Dan Dictated By: Coy Nogueira MD Dictated Date/Time: 04/23/23 3:44 pm Reviewed By: Kenny Ring MD Signed By: Kenny Ring MD Signed Date/Time: 04/23/23 3:49 pm Transcribed By: IWONA Transcribed Date/Time: 04/23/23 3:30 pm Vital Signs Most recent to oldest [Reference Range]: 1 2 3 Height 178 cm (04/23/23 11:52 AM) 178 cm (04/23/23 11:40 AM) 178 cm (04/23/23 11:09 AM) Weight 122.5 kg (04/23/23 11:52 AM) 122.5 kg (04/23/23 11:40 AM) 122.5 kg (04/23/23 11:09 AM) Oxygen Saturation [94-100 %] 100 % (04/23/23 5:08 PM) 97 % (04/23/23 3:00 PM) 98 % (04/23/23 1:27 PM) Pulse Rate [55-90 bpm] 90 bpm (04/23/23 5:08 PM) 94 bpm *H* (04/23/23 3:00 PM) 87 bpm (04/23/23 1:27 PM) Body Mass Index [18.5-24.99 kg/m2] 38.66 kg/m2 *>HHI* (04/23/23 11:40 AM) 38.66 kg/m2 *>HHI* (04/23/23 11:09 AM) Blood Pressure [90-138/55-84 mm Hg] 110/63mm Hg (04/23/23 5:08 PM) 129/86mm Hg (04/23/23 3:00 PM) 118/69mm Hg (04/23/23 1:27 PM) Respiratory Rate [16-30 br/min] 18 br/min (04/23/23 11:40 AM) 18 br/min (04/23/23 11:09 AM) Temperature [96.8-100.4 DegF] 98.7 DegF (04/23/23 11:09 AM) Mode of Delivery (Oxygen) Room air (04/23/23 5:08 PM) Room air (04/23/23 3:00 PM) Room air (04/23/23 1:27 PM) Blood pressure sites Arm, left (04/23/23 5:08 PM) Arm, left (04/23/23 3:00 PM) Arm, left (04/23/23 1:27 PM) Temperature Route Oral (04/23/23 11:09 AM) Dry Weight 122.5 kg (04/23/23 11:52 AM) 122.5 kg (04/23/23 11:40 AM) 122.5 kg (04/23/23 11:09 AM) Note * Junaid Dan MD: PERFORM Event Display: Patient Education Leaflets Authored Date: [id number] Crohn's Disease Discharge Instructions ?? 681 ?? Crohn's Disease Discharge Instructions ??You must carefully read the Consumer Information Use and Disclaimer below in order to understand and correctly use this information??About this topicCrbrandiease is a long-term illness that may cause redness, swelling, and irritation of the digestive tract. Your digestive tract includes the mouth, swallowing tube or esophagus, stomach, and intestines. It most often bothers a part of the small intestines called the ileum or a part of the large intestines called the colon. The swelling caused by this illness can cause belly pain, fever, loss of appetite, loss of energy, ulcers or open sores, loose stools, blood in the stool, and pain when having astool.??Treatment may include drugs and good nutrition. Sometimes, you may need to have surgery.??What care is needed at home? Ask your doctor what you need to do when you go home. Make sure??youask questions if you do not understand what the doctor says. This??way you will know what you need to do. ??? Make sure to take all the drugs ordered by your doctor. ??? Your doctor may give you extra vitamins. Take them as ordered by??your doctor. ??? Keep notes of what you eat. Watch for foods that may cause you to??feel worse or make your illness worse. Avoid these foods in the future. ??? Learn how to manage stress. Ask your doctor about breathing??exercises and relaxation techniques. Support groups are available to??help you to deal with Crohn's. They offer support related to diet and??other concerns. ??? Get lots of rest so that your body can heal and absorb nutrients. ??? Your doctormight need to form an ileostomy or colostomy. Your??doctor will talk about this with you if you need this type of surgery. An??ileostomy needs special care. Your doctor will provide a special nurse, ??? called an enterostomal therapist, to help you care for the ostomy. ??What follow-up care is needed? Your condition needs close monitoring. Your doctor may ask youto??make visits to the office to check on your progress. Be sure to keep these visits. ??? Your doctor will tell you if other tests are needed. ??? Your doctor may send you to a specialist. ??? [facility] doctor to talk about your worries and fears. ??? Keep drinking fluids so your body does not lose too much. Drink at??least 6 to 8 cups (1500 to 1900 mL) of fluid each day. This is very??important when you have loose stools so you do not become??dehydrated. Drink small amounts of fluids as you are able. Good??things to drink are water, rehydration drinks, and caffeine free soda or tea. Limit sugary drinks and sugar substitutes. ??What drugs may be needed?The doctor may order drugs to:? Reduce swelling of the bowel ??? Help with pain ??? Prevent or fight an infection ??? Lessen your immune system so that it does not attack its own tissues. ??? IV treatments are used to give these drugs. The drugs lessen your??body's ability to fight other infections. Avoid crowds and people who have colds and other infections while you are receiving the treatments. You can get sick easily. ??? Treat loose or hard stool ??Will physical activity be limited?Your belly pain or loose stools may make you want to be less active. Rest until you are feeling better.What changes to diet are needed? Talk to a dietitian about the best diet for your illness. ??? You may not be able to digest and absorb all of the foods you eat. ??? Eat small meals or snacks every 3 to 4 hours. Try not to skip any??meals. ??? Stay away f rom fatty, greasy, spicy, or fried foods. ??? Dairy products cause problems with some patients. Take extra care or??eat small amounts of cheese and milk if you have a history of an upset??stomach after eating them. ??? Stay away from foods that are high in fiber. They can cause gas. Foods??like beans, nuts, whole grains, popcorn, and some fruits and vegetables are high in fiber. ??? When your illness is acting up, eat bland foods such as rice, potatoes, ??? and other foods that are easy to digest. Drinks high in calories are good when it is hard to eat solid food. ??? Pay attention to how youfeel after you eat. You will learn which foods??cause you problems with your stomach. Eat healthy foods that do not??upset your stomach or cause cramping and loose stools. ??? Stop smoking to help lessen the risk of problems and flare-ups. ??What problems could happen? Poor nutrition ??? Mouth sores ??? Weight loss ??? Weak bones ???Infection ??? Block in the intestine ??? Hole in the digestive tract ??? Ulcers or open sores in your intestines or anus ??? More risk of cancer in the intestines ??? Joint inflammation or eye pain ??When do I need to call the doctor? Signs of infection. These include a fever of 100.4??F (38??C) or higher,??chills, wound that will not heal. ??? Very bad belly pain??Loose bowel movements of more than 6 times in 24 hours with??throwing up??Black or bloody stools? You are having problems coping with your illness ??? You are not feeling better in 2 to 3 days, or you are feeling worse?Helpful tips ??? Keep a list of foods that make you sick. This may help with the choices??you make. ??? When eating out, ask about the ingredients used in your food. ??? Avoid drinking alcohol and caffeine. These may worsen your belly??pain. ??? Join support groups to get to know other people whohave coped with??the condition. ??Teach Back: Helping You Understand??The Teach Back Method helps you understand the information weare giving you. After you talk with the staff, tell them in your own words what you learned. This helps to make sure the staff has described each thing clearly. It also helps to explain things that may have been confusing. Before going home, make sure you can do these:? I can tell you about mycondition. ??? I can tell you what changes I need to make with my diet or drugs. ??? I can tell youwhat I will do if I have very bad belly pain or black or??bloody stools. ??Where can I learn more?[place] [employer]https://familydoctor.org/condition/kcweqvsqrndi-lbmvc-upsxwfe-ibd /Crohn's & Colitis Foundation of [place]https://www.crohnscolitisfoundation.org/sites/default/fi les/legacy/assets/pdfs/wjhtqk-ryhl-uhkugj-disease.pdf[place] of Diabetes and Digestive and Kidney Diseaseshttps://www.niddk.nih.gov/health-information/digestive-diseases/crohns-d isease/all-contentNatdavis regional medical center [place] of Diabetes and Digestive and Kidney Diseaseshttps://www.niddk.nih.gov/[facility]-information/digestive-diseases/crohns-disease/ylicqo-geud-bbljpmkisBppb Reviewed Uymt2818-96-56Swxxmqna Information Use and Disclaimer:This generalized information is a limited summary of diagnosis, treatment, and/or medication information. It is not meant to be comprehensive and should be usedas a tool to help the user understand and/or assess potential diagnostic and treatment options. It does NOT include all information about conditions, treatments, medications, side effects, or risks that may apply to a specific patient. It is not intended to be medical advice or a substitute for themedical advice, diagnosis, or treatment of a health care provider based on the health care provider's examination and assessment of a patient???s specific and unique circumstances. Patients must speak with a health care provider for complete information about their health, medical questions, and treatment options, including any risks or benefits regarding use of medications. This information doesnot endorse any treatments or medications as safe, effective, or approved for treating a specific patient. [employer]. and its affiliates disclaim any warranty or liability relating to this information or the use thereof. The use of this information is governed by the Terms of Use, available at?? https://www.[employer].com/en/know/hhauuezj-wcuhdyvooxpnc-fpzktFydy Updated 05/21/21? * Junaid Dan MD: PERFORM Event Display: Patient Education Leaflets Authored Date: [id number] Crohn???s Disease ?? [id number] Crohn???s Disease Crohn???s disease is??inflammation of the intestinal tract that comes and goes in flare-ups. This is a chronic??(long-term)??illness. During a flare-up, intense abdominal (belly) pain and fever may be felt. Mucus, blood, or pus may appear in the stool. Between flare-ups, inflammation lessens and there usually are no symptoms. Crohn???s disease is a form of inflammatory bowel disease (IBD).?? Symptoms of Crohn's disease may include: ??? Abdominal cramps and pain ??? Diarrhea,??sometimes bloody,??occasionally??alternating with constipation ??? Mucus in stools ??? Rectal bleeding ??? Rectal pain ??? Fever ??? Low energy ??? Decreased appetite and weight loss ??? Bloating or swollen abdomen ??? Nausea or vomiting ??? Joint aches ??? Sores in mouth ??? Red, painful eye problems ??? Rashes in anal area or other anal problems ??? Abscess (infection) or fistula (abnormal opening in the digestive tract) No one knows exactly what causes Crohn's disease, and there is no cure. The goal of treatment is tocontrol and relieve symptoms and prevent complications, so you can lead a full and active life. No single treatment works for everyone, but many things can be done to help. Diet Foods did not cause your Crohn's disease. But they can affect it. Unfortunately, there is no one diet that works for everyone. Keep a food log to figure out what you are sensitive to. Below are??somethings to try.? Eat more slowly and smaller amounts at a time, but more often. Remember, you can always eat more if you are still hungry. But you can???t eat less once you???ve eaten too much. ??? High fiber foods are complicated. While they may help constipation and diarrhea, they can make the bloating, cramping, and gas worse. ??? If your Crohn's disease involves the small intestine, staying away from lactose-containing dairy products can help relieve some symptoms. ??? Try limiting spicy or fatty foods. Consume lean protein meats, such as fish and poultry. ??? Eat less sugar. ??? Bloating or passing excess gas may be controlled. Stay away from gassy foods, such as beans, cabbage, broccoli, and cauliflower. ??? Stay away from certain types of fruits and fruit juices, such as pear, peach, and prune. ??? Caffeine, alcohol, and stimulants may make symptoms worse. These include coffee, tea, sodas, energy drinks, and chocolate. ?? Lifestyle Although stress does not cause Crohn's, it's often a factor in flare-ups. It can also affect how you feel about and cope with your health problem. ??? Look for things that seem to make your symptoms worse, such as stress and emotions. ??? Counseling can often help relieve stress. So can??self-help measures, such as exercise, yoga, and meditation. ??? Depression can be a part of this illness and antidepressants may be prescribed. This may actually help with diarrhea, constipation, and cramping, as well as depression. ??? Smoking doesn't cause Crohn's. But it can make the symptoms worse. It canalso make the disease more severe and harder to control. It's very important to stop smoking if youhave Crohn's disease. ?? Medicines Your healthcare provider may prescribe medicines. If so, take them as directed.??In Crohn's disease, long-term medicine is usually needed. This is because control of the disease is very important to prevent complications in the future.??Control is called remission. The goal of treatment is remission. Complications can include continued inflammation, a blockage (obstruction), a communication between different organs (a fistula), a pocket of pus (abscess), and anal problems. This is why it's veryimportant to follow your treatment plan carefully. For acute flare-ups, prescription medicine can be prescribed. Call your healthcare provider if you need this. ??? Ask your healthcare provider before taking any antidiarrheal medicines. ??? Medicines to control Crohn's disease include pills, intravenous infusions, and injections. Your healthcare provider candiscuss the pros and cons of different medicines with you. ??? Don???t take anti-inflammatory medicines like ibuprofen or naproxen. ??? Consider nutritional supplements. This is especially true if the diarrhea is prolonged, or you aren't eating or are losing weight.?? If you need supplements, talk it over with your healthcare provider for the best recommendation. Stay away from herbal supplements. They are not evaluated by the FDA. Because of this, there is no wayto be certain of??their safety and purity. ?? Follow-up care Follow up with your healthcare provider, or??as advised.??If a stool sample??was??taken or cultureswere done, you will be advised if your treatment plan needs to change.??You may also need blood tests, procedures, or imaging studies. Call as directed??for the results. ?? Support Joining a support group for people with Crohn???s disease can be a source of useful information on how others are coping with this illness. They are available in person, on the phone, or on the Web. Contact the following resources for more information: ??? Crohn???s and Colitis Foundation of [place] , www.ccfa.org ??? National Digestive Diseases Information Clearinghouse (NDDIC), www.digestive.niddk.nih.gov ?? When to??get medical advice Call your healthcare provider right away??if any of the following occur: ??? Fever of 100.4??F??(38??C) or higher, or as directed by your healthcare provider ??? Abdominal (belly) pain that doesn't get better when you take the usual measures ??? Mucus, pus, or small amounts of blood??in the stool (dark or bright red) ??? Repeated vomiting ??? Abdominal swelling and pain that doesn???t go away after a few hours ?? Call 911 Call 911 if any of the following occur: ??? Trouble breathing ??? Confusion ??? Extreme sleepiness or trouble waking up ??? Fainting or loss of consciousness ??? Rapid heart rate ??? Large amount of blood??in the stool (dark or bright red) ?? Last Reviewed Date: 2021 ?? The [employer]. All rights reserved. This information is not intended as a substitute for professional medical care. Always follow your healthcare professional's instructions. ?? Patient Care team information Care Team Personnel Name: Emile Chamroro NP Position: Reference Physician Member Role: PCP Address: Address: [address] [place] [id number]- Care Team Related Persons Name: SHERRON BOND Address: [address] [address]
--- NOTE | 2023-08-24 12:18 | AM.OFFWIN_ITS ---
Intake Vital Signs 08/24/23 12:19 Height 5 ft 10 in Weight 269 lb BMI 38.6 BP 120/70 Blood Pressure Location Lt brachial Position Sitting Pulse 107 H Pulse Source Pulse Oximeter Temp 97.9 F Temp Source Temporal Artery Scan Pulse Oximetry (%) 95 Oxygen Delivery Method Room Air Intake Visit Reasons: EP ?Tick bite Intake Note: pt is here today for tick bite rt arm started 3 days ago Patient Tobacco Use Status: Former Tobacco user Quit Date: 1965 Allergies oatmeal Allergy (Unknown, Uncoded 08/24/23 12:43) hives Medication List - Last Reconciled 08/24/23 by Daniel Curran MD bupropion HCl XL 150 mg PO DAILY bupropion HCl XL 300 mg PO BEDTIME calcium 600 mg PO DAILY@1800 cholecalciferol (vitamin D3) 25 mcg PO DAILY@1800 ferrous sulfate (Iron (ferrous sulfate)) 325 mg PO DAILY@1800 fluoxetine 80 mg PO DAILY hydrocortisone 2.5% 1 appl topical BID PRN metoprolol succinate ER mg PO multivitamin 1 tab PO DAILY@1800 [Probiotic 1 tab PO DAILY@1800] rosuvastatin 5 mg PO DAILY tamsulosin 0.8 mg (2 x 0.4 mg) PO DAILY 90 days warfarin 7.5 mg PO DAILY Do you need a note to return to daycare/school/sports/work: No HPI EP ?Tick bite HPI Details 73 yr old male presents to the office fo r a sick visit. He believes he has a tick bite on the right forearm. [facility] Medical History RANULFO (obstructive sleep apnea) BPH (benign prostatic hyperplasia) New onset a-fib Foreign body of finger of right hand Left anterior fascicular block (LAFB) Iron deficiency Depression Vertebral compression fracture PLMD (periodic limb movement disorder) PVD (peripheral vascular disease) Dyslipidemia HTN (hypertension) Crohn's disease Venous insufficiency of both lower extremities Surgical History History of cholecystectomy Status post endovenous radiofrequency ablation (RFA) of saphenous vein Family History Father Cancer of prostate Mother Anxiety Sister Breast cancer Sister Nephritis Sister No problems noted. Sister No problems noted. Sister No problems noted. Daughter Substance use disorder Mental health disorder Daughter No problems noted. Daughter No problems noted. Brother No problems noted. Brother No problems noted. Brother Epilepsy Paternal Grandfather Substance use disorder Social History Housing: House Alcohol intake: never Patient Tobacco Use Status: Former Tobacco user Quit Date: 1965 Years Smoked: 50 years ago e-Cigarette/Vaping Use: Never Used Second Hand Smoke Exposure: No service: Yes Current occupational status: retired Cognitive needs: No Hearing needs: No Vision needs: No Physical Exam Vital Signs: Last Vital Signs Temp 97.9 F 08/24/23 12:19 Pulse 107 H 08/24/23 12:19 BP 120/70 08/24/23 12:19 Pulse Ox 95 08/24/23 12:19 Oxygen Delivery Method Room Air 08/24/23 12:19 BMI result Body Mass Index 38.6 Skin Other: Right forearm: Small hyperemia area surrounded by bruising circular in shape. Assessment & Plan Assessment & Plan (1) Tick bite: Code(s): W57.XXXA - Bitten or stung by nonvenomous insect and other nonvenomous arthropods, initial encounter Plan: Single dose doxycycline given. Lyme titre in three weeks. Coding Level of Care Code Est Pt Level 3 (25851) Diagnoses Tick bite W57.XXXA
[2023-08-24 12:19] VITALS: BP 120/70; PULSE 107; TEMP 36.6; O2SAT 95; BMI 38.6
== END 2023-08-24 13:08 | disposition home or self-care (01) ==
PROVIDERS: PCP Nurse Practitioner Family; Visit Provider Internal Medicine
DX: S50.861A Insect bite (nonvenomous) of right forearm, initial encounter (principal); T63.481A Toxic effect of venom of other arthropod, accidental (unintentional), initial encounter
CPT/HCPCS: 99213

== ENCOUNTER 2023-08-24 12:44 | Outpatient (REF) | payer MEDICARE, OTHER, SELFPAY ==
[2023-08-24 16:15] LABS: INTERNATIONAL NORM RATIO 1.8 (0.9-1.1); Prothrombin Time 21.8 SEC (11.1-13.3)
== END 2023-08-24 12:45 | disposition home or self-care (01) ==
LOC: HO.HMGCLR 12:44
PROVIDERS: PCP Nurse Practitioner Family; Visit Provider Internal Medicine Cardiovascular Disease
DX: I48.91 Unspecified atrial fibrillation (principal); Z79.01 Long term (current) use of anticoagulants
CPT/HCPCS: 36415; 85610

== ENCOUNTER 2023-08-31 08:25 | Outpatient (REF) | payer MEDICARE, OTHER, SELFPAY ==
[2023-08-31 10:56] LABS: INTERNATIONAL NORM RATIO 1.5 (0.9-1.1); Prothrombin Time 18.4 SEC (11.1-13.3)
== END 2023-08-31 08:26 | disposition home or self-care (01) ==
LOC: HO.HMGCLR 08:25
PROVIDERS: PCP Nurse Practitioner Family; Visit Provider Internal Medicine Cardiovascular Disease
DX: I48.91 Unspecified atrial fibrillation (principal); Z79.01 Long term (current) use of anticoagulants
CPT/HCPCS: 36415; 85610

== ENCOUNTER 2023-08-31 08:48 | Outpatient (AMB) | payer MEDICARE, OTHER, SELFPAY ==
--- NOTE | 2023-08-31 08:51 | MHC.PC.OV ---
Vital Signs 08/31/23 08:53 Height 5 ft 10 in Weight 270 lb BMI 38.7 BP 120/90 H Blood Pressure Location Lt brachial Position Sitting Pulse 72 Pulse Source Pulse Oximeter Pulse Oximetry (%) 97 Oxygen Delivery Method Room Air Intake Visit Reasons: 6 Month F/U Intake Note: Patient here to f/u on Afib Allergies oatmeal Allergy (Unknown, Uncoded 08/31/23 08:54) hives ASA Adverse Reaction (Intermediate, Uncoded 08/31/23 09:04) Gastrointestinal Hemorrhage Tobacco use date assessed: 08/31/23 Fall risk assessment: No Falls in past year Last assessed Fall Risk: 08/31/23 Dental Screening Dental Screen Date: 08/31/23 Did you have a dental visit in the last 12 months?: No Did you have a dental problem in the last 6 months where you did not have access to dental care?: No Was dental information given to patient?: No HPI 6 Month F/U HPI Details Hx of CAD: Pt is on a statin and warfarin, no ASA due to allergy. He has an upcoming cardiac cath in September. HTN: Blood pressure is stable, managed with metoprolol. Cardiac cath scheduled for in September. Pt reports SOb with exertion. Denies chest pain, shortness of breath (sitting still), headache, dizziness, and blurred vision. Pt has some swelling of his lower extremities, reenforced the importance of reducing sodium intake. Pt was recently seen in the walk-in due to a tick bite. He was treated with 1 day of doxycycline. [facility] Medical History RANULFO (obstructive sleep apnea) BPH (benign prostatic hyperplasia) New onset a-fib Foreign body of finger of right hand Left anterior fascicular block (LAFB) Iron deficiency Depression Vertebral compression fracture PLMD (periodic limb movement disorder) PVD (peripheral vascular disease) Dyslipidemia HTN (hypertension) Crohn's disease Venous insufficiency of both lower extremities Surgical History History of cholecystectomy Status post endovenous radiofrequency ablation (RFA) of saphenous vein Family History Father Cancer of prostate Mother Anxiety Sister Breast cancer Sister Nephritis Sister No problems noted. Sister No problems noted. Sister No problems noted. Daughter Substance use disorder Mental health disorder Daughter No problems noted. Daughter No problems noted. Brother No problems noted. Brother No problems noted. Brother Epilepsy Paternal Grandfather Substance use disorder Social History Housing: House Alcohol intake: never Patient Tobacco Use Status: Former Tobacco user Years Smoked: 50 years ago e-Cigarette/Vaping Use: Never Used Second Hand Smoke Exposure: No service: Yes Current occupational status: retired Cognitive needs: No Hearing needs: No Vision needs: No Questionnaire PHQ-9 Over the last 2 weeks, how often have you been bothered by any of the following problems? 1. Little interest or pleasure in doing things: several days 2. Feeling down, depressed, or hopeless: several days 3. Trouble falling or staying asleep, or sleeping too much: several days 4. Feeling tired or having little energy: several days 5. Poor appetite or overeating: several days 6. Feeling bad about yourself - or that you are a failure or have let yourself or your family down: not at all 7. Trouble concentrating on things, such as reading the newspaper or watching television: not at all 8. Moving or speaking so slowly that other people could have noticed. Or the opposite - being so fidgety or restless that you have been moving around a lot more than usual: not at all 9. Thoughts that you would be better off or of hurting yourself in some way: not at all Total score: 5 Depression Screening Interpretation: Negative Depression Screening Done: Yes 95997 - PHQ-9 Billing: Yes Source: Developed by Drs. Steven Kaplan, Alana Day, Perry Elmore and colleagues, with an educational yehuda from [employer]. Thrive Questionnaire Date Thrive assessed: 08/31/23 I am a: Patient What is your living situation today?: I have a steady place to live Within the past 12 months, did the food you bought not last and you didn't have the money to get more?: Never true Within the past 12 months, did you worry whether your food would run out before you got money to buy more?: Never true Do you have trouble paying for medicines?: No Do you have trouble getting transportation to medical appointments?: No Do you have trouble paying your heating and electricity bill?: No Do you have trouble taking care of your child, family member or friend?: No Do you have trouble with day-to-day activities such as bathing, preparing meals, shopping, managing finances, etc.?: No Are you currently unemployed and looking for a job?: No Are you interested in more education?: No Currently or been in a relationship where the following occur: I choose not to answer this question THRIVE Score: 0 AUDIT C Alcohol Use Questionnaire (AUDIT-C) 1. How often do you have a drink containing alcohol?: Never 3. How often do you have six or more drinks on one occasion?: Never Total Score: 0 Score Reviewed/Action Taken: No TAM-7 AMB Questionnaire TAM-7 Date TAM - 7 assessed: 08/31/23 Feeling nervous, anxious, or on edge: 1 = Several days Not being able to stop or control worryin = Not at all Worrying too much about different things: 1 = Several days Trouble relaxin = Not at all Being so restless that it is hard to sit still: 0 = Not at all Becoming easily annoyed or irritable: 0 = Not at all Feeling afraid as if something awful might happen: 0 = Not at all Total TAM-7 score (0-4 normal; 5-9 mild; 10-14 moderate; 15-21 severe): 2 Source: Developed by Drs. Steven Kaplan, Alana Day, Perry Elmore and colleagues, with an educational yehuda from [employer]. TAM-7 Assessment Billing TAM-7 Assessment Tool: TAM-7 Assessment 90537 Review of Systems Const Reports as per HPI Physical exam (Primary Care) Vital Signs: Last Vital Signs Pulse 72 08/31/23 08:53 BP 120/90 H 08/31/23 08:53 Pulse Ox 97 08/31/23 08:53 Oxygen Delivery Method Room Air 08/31/23 08:53 BMI result Body Mass Index 38.7 Tobacco/Smoking Status: Tobacco use Status Tobacco use date assessed 08/31/23 08/31/23 08:57 Patient Tobacco Use Status Former Tobacco user 08/31/23 08:52 e-Cigarette/Vaping Use Never Used 08/31/23 08:52 Depression Screening Interpretation: Negative Thrive Assessment: Date of Thrive Assessment Date Thrive assessed 07/16/22 08/31/23 08:52 Currently or been in a relationship where the following occur: I choose not to answer this question Const General: cooperative Nutritional Appearance: obese Orientation/consciousness: patient oriented x3 Resp Effort & Inspection: normal respiratory effort Auscultation: clear to auscultation bilaterally Cardio Rate: regular rate Rhythm: abnormal rhythm irregularly irregular Heart sounds: S1 normal heart sound present and S2 normal heart sound present Neuro General: patient oriented x3 Extrem Right lower extremity: edema Details: 1+ Left lower extremity: edema Details: 1+ Psych Appearance: grossly normal Mental Status: mental status grossly normal Speech and movement: Normal speech and movement present Affect: normal affect Attitude: cooperative Thought process: Normal thought process present Thought content: Normal thought content present Insight: Good insight present (Psych) Judgement: Good judgement present (Psych) Assessment and Plan Assessment & Plan (1) HTN (hypertension): Code(s): I10 - Essential (primary) hypertension Plan: stable (2) CAD (coronary artery disease): Code(s): I25.10 - Atherosclerotic heart disease of [place] coronary artery without angina pectoris Plan: seeing cardio, following up for cardiac cath in september, on warfarin and statin. Plan The patient agreed to the use of a medical case worker for this encounter. Scribed for CLARIBEL Barraza by Jennie Martin medical case worker, on 08/31/2023 at 09:00 EST. Orders: Orders TSH reflex Free T4 Today I10 - Essential (primary) hypertension, I25.10 - Atherosclerotic heart disease of [place] coronary artery without angina pectoris UA CC w/rflx Micro + Cult Today I10 - Essential (primary) hypertension, I25.10 - Atherosclerotic heart disease of [place] coronary artery without angina pectoris Complete Blood Count Auto Diff Today I10 - Essential (primary) hypertension, I25.10 - Atherosclerotic heart disease of [place] coronary artery without angina pectoris Comprehensive [place]. Panel Fast Today I10 - Essential (primary) hypertension, I25.10 - Atherosclerotic heart disease of [place] coronary artery without angina pectoris Lipid Panel Today I10 - Essential (primary) hypertension, I25.10 - Atherosclerotic heart disease of [place] coronary artery without angina pectoris Coding Level of Care Code Est Pt Level 3 (25767) Diagnoses HTN (hypertension) I10 CAD (coronary artery disease) I25.10 Additional Codes TAM-7 Assessment Billing - TAM-7 Assessment Tool: TAM-7 Assessment 79290 ([id number])
[2023-08-31 08:53] VITALS: BP 120/90; PULSE 72; O2SAT 97; BMI 38.7
== END 2023-08-31 09:30 | disposition home or self-care (01) ==
PROVIDERS: PCP Nurse Practitioner Family; Visit Provider Nurse Practitioner Family
DX: I10 Essential (primary) hypertension (principal); I25.10 Atherosclerotic heart disease of native coronary artery without angina pectoris; I48.91 Unspecified atrial fibrillation
CPT/HCPCS: 99214

== ENCOUNTER 2023-09-08 07:03 | Outpatient (REF) | payer MEDICARE, OTHER, SELFPAY ==
[2023-09-08 10:39] LABS: INTERNATIONAL NORM RATIO 1.5 (0.9-1.1); Prothrombin Time 18.6 SEC (11.1-13.3)
== END 2023-09-08 07:04 | disposition home or self-care (01) ==
LOC: HO.HMGCLR 07:03
PROVIDERS: PCP Nurse Practitioner Family; Visit Provider Internal Medicine Cardiovascular Disease
DX: I48.91 Unspecified atrial fibrillation (principal); Z79.01 Long term (current) use of anticoagulants
CPT/HCPCS: 36415; 85610

== ENCOUNTER 2023-09-14 07:23 | Outpatient (REF) | payer MEDICARE, OTHER, SELFPAY ==
[2023-09-14 10:17] LABS: MANUAL DIFF FLAG NO
[2023-09-14 10:27] LABS: Basophils Absolute Auto 0.1 X10*3/uL (0.0-0.2); Basophils Percent Auto 1.8 % (0-2); Eosinophils Absolute Auto 0.5 X10*3/uL (0.0-0.4); Eosinophils Percent Auto 10.3 % (0-4); Imm Gran Abs Auto 0.01 X10*3/uL (0.00-0.03); Imm Gran Pct Auto 0.2 % (0.0-0.4); Lymphocytes Absolute Auto 1.6 X10*3/uL (1.2-4.9); Mean Corpuscular HGB Conc 32.4 g/dl (31.0-36.0); Mean Corpuscular Hemoglobin 30.5 pg (27.0-33.0); Mean Corpuscular Volume 94.1 fL (80.0-98.0); Mean Platelet Volume 9.6 fL (9.4-12.4); Monocytes Absolute Auto 0.5 X10*3/uL (0.1-1.2); Monocytes Percent Auto 9.5 % (2-11); Neutrophils Absolute Auto 2.4 x10*3/uL (2.0-8.3); Neutrophils Percent Auto 47.2 % (45-73); Platelet Count 254 X10*3/uL (160-400); Red Blood Count 3.93 X10*6/uL (4.60-5.80); Red Cell Distribution Width 14.6 % (11.0-16.0); White Blood Count 5.1 X10*3/uL (4.8-10.8)
[2023-09-14 10:29] LABS: INTERNATIONAL NORM RATIO 1.7 (0.9-1.1); Prothrombin Time 20.5 SEC (11.1-13.3)
[2023-09-14 11:05] LABS: Alanine Aminotransferase 16 U/L (0-40); Albumin Level 3.8 g/dL (3.5-5.0); Alkaline Phosphatase 82 U/L (39-117); Anion Gap 11 (12-20); Aspartate Amino Transferase 20 U/L (5-37); Bilirubin Total 0.4 mg/dL (0.0-1.0); Blood Urea Nitrogen 16 mg/dL (9-16); Calcium 8.8 mg/dL (8.4-10.2); Carbon Dioxide 25 mmol/L (22-29); Chloride 110 mmol/L (96-108); Cholesterol 120 mg/dL (<200); Estimated Glomerular Filt Rate > 60; Glucose Fasting 100 mg/dL (60-99); HDL Cholesterol 48 mg/dL (>40); LDL Cholesterol Calculated 59 mg/dL (<100); Potassium 4.5 mmol/L (3.3-5.1); Sodium 141 mmol/L (135-145); Triglycerides 66 mg/dL (<150)
[2023-09-14 16:02] LABS: Appearance Urine Clear; Glucose Urine UA Negative (Negative); Leukocyte Esterase Urine Negative (Negative); Nitrite Urine Negative (Negative); Specific Gravity - Urine 1.025 (1.005-1.025); Urine Blood Negative (Negative); Urine Ketones Trace mg/dL (Negative); Urine Protein Negative (Neg-Trace)
[2023-09-14 16:25] LABS: Color Urine Straw
[2023-09-15 18:03] LABS: Lyme Abs Screen <0.90 index
== END 2023-09-14 07:24 | disposition home or self-care (01) ==
LOC: HO.HMGCLR 07:23
PROVIDERS: Internal Medicine; PCP Nurse Practitioner Family; Referring Provider Internal Medicine Cardiovascular Disease; Visit Provider Nurse Practitioner Family
DX: I10 Essential (primary) hypertension (principal); I25.10 Atherosclerotic heart disease of native coronary artery without angina pectoris; W57.XXXA Bitten or stung by nonvenomous insect and other nonvenomous arthropods, initial encounter; T14.8XXA Other injury of unspecified body region, initial encounter; Z79.1 Long term (current) use of non-steroidal anti-inflammatories (NSAID); I48.91 Unspecified atrial fibrillation; Z79.01 Long term (current) use of anticoagulants
CPT/HCPCS: 36415; 80053; 80061; 81003; 84443; 85025; 85610; 86617; 86618

== ENCOUNTER 2023-09-23 07:26 | Outpatient (REF) | payer MEDICARE, OTHER, SELFPAY ==
[2023-09-23 11:40] LABS: MANUAL DIFF FLAG NO
[2023-09-23 11:41] LABS: Basophils Absolute Auto 0.1 X10*3/uL (0.0-0.2); Basophils Percent Auto 1.8 % (0-2); Eosinophils Absolute Auto 0.4 X10*3/uL (0.0-0.4); Eosinophils Percent Auto 9.3 % (0-4); Hematocrit 34.3 % (42.0-52.0); Hemoglobin 10.7 g/dl (14.0-18.0); Imm Gran Abs Auto 0.02 X10*3/uL (0.00-0.03); Imm Gran Pct Auto 0.4 % (0.0-0.4); Immature Retic Fraction 12.3 % (2.3-13.4); Lymphocytes Absolute Auto 1.2 X10*3/uL (1.2-4.9); Lymphocytes Percent Auto 27.2 % (20-40); Mean Corpuscular HGB Conc 31.2 g/dl (31.0-36.0); Mean Corpuscular Hemoglobin 29.6 pg (27.0-33.0); Mean Platelet Volume 9.6 fL (9.4-12.4); Monocytes Absolute Auto 0.5 X10*3/uL (0.1-1.2); Monocytes Percent Auto 10.2 % (2-11); Neutrophils Absolute Auto 2.3 x10*3/uL (2.0-8.3); Neutrophils Percent Auto 51.1 % (45-73); Platelet Count 229 X10*3/uL (160-400); Red Blood Count 3.61 X10*6/uL (4.60-5.80); Red Cell Distribution Width 14.6 % (11.0-16.0); Retic HGB Equivalent 32.3 pg (30.0-35.0); Reticulocyte Percent 1.7 % (0.5-1.8); White Blood Count 4.5 X10*3/uL (4.8-10.8)
[2023-09-23 11:43] LABS: INTERNATIONAL NORM RATIO 2.6 (0.9-1.1); Prothrombin Time 31.4 SEC (11.1-13.3)
[2023-09-23 12:15] LABS: Iron 56 mcg/dL (45-160); Percent Iron Saturation 21 % (15-50); Total Iron Binding Capacity 273 mcg/dL (228-428); Unsaturated Iron Binding 217 ug/dL
[2023-09-23 12:32] LABS: Vitamin B12 229 pg/mL (200-900)
[2023-09-23 12:37] LABS: Ferritin 14 ng/mL (20-250)
[2023-09-27 13:53] LABS: Hematocrit 33.6 % (38.5-50.0); MCH 30.5 pg (27.0-33.0); MCV 93.1 fL (80.0-100.0); RBC 3.61 Million/uL (4.20-5.80); RDW 13.2 % (11.0-15.0)
== END 2023-09-23 07:27 | disposition home or self-care (01) ==
LOC: HO.HMGCLR 07:26
PROVIDERS: PCP Nurse Practitioner Family; Referring Provider Internal Medicine Cardiovascular Disease; Visit Provider Nurse Practitioner Family
DX: D64.9 Anemia, unspecified (principal); I48.91 Unspecified atrial fibrillation; Z79.01 Long term (current) use of anticoagulants
CPT/HCPCS: 36415; 82607; 82728; 82746; 83020; 83540; 85014; 85018; 85025; 85041; 85045; 85610

== ENCOUNTER 2023-09-23 10:45 | Outpatient (AMB) | payer MEDICARE, OTHER, SELFPAY ==
--- OUTSIDE RECORDS SUMMARY | 2023-09-23 10:46 | XMS_ITS | Continuity of Care Document ---
Author Organization [facility] Address [address] [place] [id number]- Care Team Providers Care Revolving Field Assembler Name Role Phone Pedro Pablo ORELLANA, Emile Hdz Primary Care Physician [phone] Encounter [facility] Date(s): 08/19/23 - 09/18/23 [facility] [address] [place] [id number]- Attending Physician: Grayson Bro Admitting Physician: Grayson Bro Referring Physician: Grayson Bro Allergies, Adverse Reactions, Alerts No Known Medication Allergies Medications buPROPion 150 mg/24 hours (XL) oral tablet, extended release 1 tablet = 150 mg, By Mouth, Daily at bedtime, 0 Refills, Maintenance, 08/19/23 11:36:00 EDT, Partial fill upon patient request if the prescription is for a schedule II opioid drug. Start Date: 08/19/23 Status: Ordered buPROPion 300 mg/24 hours (XL) oral tablet, extended release TAKE 1 TABLET BY MOUTH DAILY IN AM Start Date: 08/19/23 Status: Ordered Calcium 500+D 1 tablet, By Mouth, Daily, 0 Refills, Maintenance, 08/19/23 9:59:00 EDT, Partial fill upon patient request if the prescription is for a schedule II opioid drug. Start Date: 08/19/23 Status: Ordered FLUoxetine 40 mg oral capsule TAKE 1 CAPSULE BY MOUTH TWICE DAILY Start Date: 08/19/23 Status: Ordered hydrochlorothiazide 25 mg oral tablet 25 mg, 1, tablet, By Mouth, Daily, # 30 tablet, Refills 0, Maintenance, 03/17/22 17:01:00 EST, Partial fill upon patient request if the prescription is for a schedule II opioid drug. Start Date: 03/17/22 Status: Ordered mesalamine 1.2 g oral delayed release tablet 2 tablet = 2.4 Gm, By Mouth, Daily, 0 Refills, Maintenance, 08/19/23 10:00:00 EDT, Partial fill upon patient request if the prescription is for a schedule II opioid drug. Start Date: 08/19/23 Status: Ordered metoprolol succinate 25 mg oral capsule, extended release 1 capsule = 25 mg, By Mouth, Daily at supper, # 30 capsule, 0 Refills, Maintenance, 03/17/22 23:29:00 EST, ER Capsule, [facility], Partial fill upon patient request if the prescription is for a schedule II opioid drug., 178, cm, 03/17/22 16... Start Date: 03/17/22 Status: Ordered Multivitamin 0 Refills, Maintenance, 08/19/23 10:00:00 EDT, Partial fill upon patient request if the prescription is for a schedule II opioid drug. Start Date: 08/19/23 Status: Ordered Probiotic Formula By Mouth, Daily, 0 Refills, Maintenance, 08/19/23 10:00:00 EDT, Partial fill upon patient request if the prescription is for a schedule II opioid drug. Start Date: 08/19/23 Status: Ordered rosuvastatin 5 mg oral capsule [...] opioid drug. Start Date: 03/17/22 Status: Ordered torsemide 10 mg oral tablet TAKE 1 TABLET BY MOUTH DAILY Start Date: 08/19/23 Status: Ordered Vitamin D3 2000 intl units oral capsule 1 capsule = 50 mcg, By Mouth, Daily, # 60 capsule, 0 Refills, Maintenance, 08/19/23 9:59:00 EDT, Capsule, Partial fill upon patient request if the prescription is for a schedule II opioid drug. Start Date: 08/19/23 Status: Ordered warfarin 5 mg oral tablet TAKE 1 TO 2 TABLETS BY MOUTH DAILY INSTRUCTED BY CLINIC Start Date: 5/23/24 Status: Ordered Xarelto 20 mg oral tablet 1 tablet = 20 mg, By Mouth, Daily at supper, # 30 tablet, 0 Refills, Maintenance, 03/17/22 23:28:00EST, Tablet, [facility], Partial fill upon patient request if the prescription is for a schedule II opioid drug., 178, cm, 03/17/22 16:46:00... Start Date: 03/17/22 Status: Ordered Problem List Condition Confirmation Course Effective Dates Status Health [facility] Informant Obese class II Confirmed Active Social History Social History Type Response Smoking Status Never (less than 100 in lifetime) entered on: 08/19/23 Sex Cardiology * Event Display: Cardiology Office Note, Non-BH Authored Date: * Event Display: Cardiology Office Note, Non-BH Authored Date: * Event Display: Loop Monitor Authored Date: * Event Display: Loop Monitor Authored Date: * Event Display: Non BH Cardiovascular Results Authored Date: * Event Display: Non BH Cardiovascular Results Authored Date: Patient Care team information Care Team Personnel Name: Emile Chamorro NP Position: Reference Physician Member Role: PCP Address: Address: [address] [place] [address]- Care Team Related Persons Name: SHERRON BOND Address: home [address] [place] [address]
--- OUTSIDE RECORDS SUMMARY | 2023-09-23 10:47 | XMS_ITS | Patient Health Record ---
Author Organization [facility] Address [address] [place] [address] Care Team Providers Care Store Protection Specialist Name Role Phone MARIAH DSOUZA Primary Care Provider Steven Florence Unavailable [phone] ALLERGIES No Known Allergies REASON FOR REFERRAL [...] unspecified gastrointestinal tract location (K50.90) Active confirmed [id number] Problem Crohn''s disease of large intestine without complication (K50.10) Active confirmed 7437814 Problem Rectal bleeding (K62.5) Active confirmed 83150586 Problem Diarrhea, unspecified type (R19.7) Active confirmed 19413651 Problem Crohn's disease of colon (K50.10) Active confirmed Crohn's disea se of colon (66471464) Problem Diverticulosis of large intestine without perforation or abscess without bleeding (K57.30) Active confirmed Diverticul ar disease of colon (044647831) VITAL SIGNS Temperature 97.5 degrees Fahrenheit 05/13/2023 Blood pressure diastolic 00 mm Hg 05/13/2023 Height 70 in 05/13/2023 Blood pressure systolic 00 mm Hg 05/13/2023 Weight 270 lbs 05/13/2023 BMI 38.74 kg/m2 05/13/2023 Encounters Encounter Location Date Provider Diagnosis [facility] [address] [place] [phone] 12/29/2022 Steven Guan [facility] [address] [place] [phone] 05/13/2023 Steven Guan Crohns disease witho ut complication, unspecified gastrointestinal tract location K50.90 and Rectal bleeding K62.5 [facility] [address] [place] [phone] 12/29/2022 Steven Guan [facility] [address] [place] [phone] 03/15/2023 Steven Guan [facility] [address] [place] [phone] 04/30/2023 Stveen Guan [facility] [address] [place] [phone] 05/10/2023 Steven Guan ASSESSMENTS Encounter Date Diagnosis [...] Name:Steven Guan , 12/02/2023 10:20:00 AM, [address], [address], [place], [address], Insurance Providers Payer Name Payer Address Payer Phone Subscriber Number Group Number Insured Name Patient Relationship to Insured Coverage Start Date Coverage End Date [place] [address] [place] [address] [id number] SEDA BOND Self - patient is the insured [employer] [address] [place] [phone] [id number] SEDA BOND Self - patient is the insured MEDICAL (GENERAL) HISTORY Medical History History ICD Code Denies [place],DM,CVA,Lung disease,renal dise ase Crohn's colitis diagnosed in [...] and there was no H. 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 Major in [place], [place] Colonoscopy in 05/2022 was ne gative for active Crohn's and polyps; there was no perianal disease, internal hemorrhoids were noted. Biopsies throughout the colon were negative for any colitis and dysplasia Surgical History Surgery Date(Month/Year) Cholecystectomy Back surgery Vein surgery of LE's 04/2018 and 05/2018
--- NOTE | 2023-09-23 11:08 | MHC.OFFWIV ---
Intake Vital Signs 09/23/23 11:09 Height 5 ft 10 in Weight 270 lb BMI 38.7 BP 122/88 Blood Pressure Location Rt brachial Position Sitting Pulse 78 Pulse Source Pulse Oximeter Temp 98.0 F Temp Source Oral Pulse Oximetry (%) 97 Intake Visit Reasons: EP rash on foot Intake Note: pt is here for rash on foot Patient Tobacco Use Status: Former Tobacco user Allergies oatmeal Allergy (Unknown, Uncoded 09/23/23 11:25) hives ASA Adverse Reaction (Intermediate, Uncoded 09/23/23 11:25) Gastrointestinal Hemorrhage Medication List - Last Reconciled 09/23/23 by RADHA Carvajal bupropion HCl XL 300 mg PO BEDTIME calcium 600 mg PO DAILY@1800 cholecalciferol (vitamin D3) 25 mcg PO DAILY@1800 clobetasol 0.05% 1 appl topical BID 2 weeks ferrous sulfate (Iron (ferrous sulfate)) 325 mg PO DAILY@1800 fluoxetine 80 mg PO DAILY metoprolol succinate ER mg PO multivitamin 1 tab PO DAILY@1800 [Probiotic 1 tab PO DAILY@1800] rosuvastatin 5 mg PO DAILY tamsulosin 0.8 mg (2 x 0.4 mg) PO DAILY 90 days torsemide 10 mg PO DAILY warfarin 7.5 mg PO DAILY Do you need a note to return to daycare/school/sports/work: No HPI HPI Comments History of Present Illness Details Patient is a 73-year-old male in today for sick visit. Patient states that he developed a rash on his left ankle 1 month prior to this appointment. He states that he had been given hydrocortisone cream that has not had any affect. Feels like the rash is spreading, with 2 dime-size patches on his left calf and medial aspect of his left knee, in addition to the left ankle rash that is about 3 in x 3 in. He reports there was initially some clear drainage, which has stopped. His primary concern is that the rash is itchy. Denies any fevers or chills. Patient is able to ambulate on the affected extremity. Denies pain. [facility] Medical History RANULFO (obstructive sleep apnea) BPH (benign prostatic hyperplasia) New onset a-fib Foreign body of finger of right hand Left anterior fascicular block (LAFB) Iron deficiency Depression Vertebral compression fracture PLMD (periodic limb movement disorder) PVD (peripheral vascular disease) Dyslipidemia HTN (hypertension) Crohn's disease Venous insufficiency of both lower extremities Surgical History History of cholecystectomy Status post endovenous radiofrequency ablation (RFA) of saphenous vein Family History Father Cancer of prostate Mother Anxiety Sister Breast cancer Sister Nephritis Sister No problems noted. Sister No problems noted. Sister No problems noted. Daughter Substance use disorder Mental health disorder Daughter No problems noted. Daughter No problems noted. Brother No problems noted. Brother No problems noted. Brother Epilepsy Paternal Grandfather Substance use disorder Social History Housing: House Alcohol intake: never Patient Tobacco Use Status: Former Tobacco user Years Smoked: 50 years ago e-Cigarette/Vaping Use: Never Used Second Hand Smoke Exposure: No service: Yes Current occupational status: retired Cognitive needs: No Hearing needs: No Vision needs: No Review of Systems Const All systems reviewed & are unremarkable except as noted in HPI and below Physical Exam Vital Signs: Last Vital Signs Temp 98.0 F 09/23/23 11:09 Pulse 78 09/23/23 11:09 BP 122/88 09/23/23 11:09 Pulse Ox 97 09/23/23 11:09 BMI result Body Mass Index 38.7 Vital signs are stable. Const Other: Appearance: Alert.? Oriented X3.? No acute distress.? Head: Normocephalic, atraumatic, no step-offs or deformities Respiratory: No respiratory distress.? Skin: 3 x 3 in rash on left ankle superficial to the medial malleolus. Erythema, cracked, with scant clear discharge. Slightly raise. Patient also has dime-size similar rash on left calf and medial aspect of left knee. ? Extremities: Scant lower extremity edema.? Neuro: Oriented X 3.? No motor deficit.? No sensory deficit. Assessment & Plan Assessment & Plan (1) Infection of eczematous skin: Comment: Patient will be given clobetasol topical cream to be utilize twice a day for the next 1-2 weeks patient has been instructed not to utilize a cream more than that. Patient will also be given Augmentin for the next 7 days. He has been educated the side effects of these medications. Patient has been educated on signs of worsening symptoms and when to report back to the walk-in clinic or when to present to the ED. Code(s): L30.3 - Infective dermatitis Plan: Take your medications as prescribed. If you were prescribed antibiotics today, it is important that you take your medication to their entirety, do not skip any doses, do not finish them early. Follow-up with your primary care provider this week. Present to the emergency department with new or worsening symptoms. Such as fevers, chills, chest pain, shortness of breath, nausea, vomiting, dizziness, headache, vision changes, lethargy In case of emergency call 911 Plan Patient has follow-up with PCP in 1 week. Medications: New clobetasol 0.05% 1 appl topical BID 2 weeks 30 grams 0RF amoxicillin-pot clavulanate 875-125 mg 1 tab PO Q12H 14 tabs 0RF Coding Level of Care Code Est Pt Level 3 (46418) Diagnoses Infection of eczematous skin L30.3 Time Spent (min) 26
[2023-09-23 11:09] VITALS: BP 122/88; PULSE 78; TEMP 36.7; O2SAT 97; BMI 38.7
== END 2023-09-23 11:47 | disposition home or self-care (01) ==
PROVIDERS: PCP Nurse Practitioner Family; Visit Provider Nurse Practitioner Primary Care
DX: L30.3 Infective dermatitis (principal)
CPT/HCPCS: 99213

== ENCOUNTER 2023-11-18 08:07 | Outpatient (AMB) | payer MEDICARE, OTHER, SELFPAY ==
--- NOTE | 2023-11-18 08:16 | MHC.OFFWIV ---
Intake Vital Signs 11/18/23 08:17 Height 5 ft 10 in Weight 270 lb BMI 38.7 BP 116/78 Blood Pressure Location Rt brachial Position Sitting Pulse 85 Pulse Source Pulse Oximeter Temp 98.2 F Temp Source Oral Pulse Oximetry (%) 97 Oxygen Delivery Method Room Air Intake Visit Reasons: EP- Infection on RT ankle, swollen Intake Note: pt c/o RT ankle swelling/infection. Started Wednesday. Patient Tobacco Use Status: Former Tobacco user Allergies oatmeal Allergy (Unknown, Uncoded 11/18/23 08:16) hives Do you need a note to return to daycare/school/sports/work: No HPI HPI Comments History of Present Illness Details 73 y/o male patient who presents to the walk in clinic with c/o wound/cut on the left leg/Ankle that is not healing well. He was walking his Dog last week, when the Rope from the leash cut his Leg. [facility] Medical History (Updated 10/20/23 @ 16:44 by RADHA Godfrey-) Presence of Watchman left atrial appendage closure device RANULFO (obstructive sleep apnea) BPH (benign prostatic hyperplasia) New onset a-fib Foreign body of finger of right hand Left anterior fascicular block (LAFB) Iron deficiency Depression Vertebral compression fracture PLMD (periodic limb movement disorder) PVD (peripheral vascular disease) Dyslipidemia HTN (hypertension) Crohn's disease Venous insufficiency of both lower extremities Surgical History History of cholecystectomy Status post endovenous radiofrequency ablation (RFA) of saphenous vein Family History Father Cancer of prostate Mother Anxiety Sister Breast cancer Sister Nephritis Sister No problems noted. Sister No problems noted. Sister No problems noted. Daughter Substance use disorder Mental health disorder Daughter No problems noted. Daughter No problems noted. Brother No problems noted. Brother No problems noted. Brother Epilepsy Paternal Grandfather Substance use disorder Social History Housing: House Alcohol intake: never Patient Tobacco Use Status: Former Tobacco user Years Smoked: 50 years ago e-Cigarette/Vaping Use: Never Used Second Hand Smoke Exposure: No service: Yes Current occupational status: retired Cognitive needs: No Hearing needs: No Vision needs: No Review of Systems Const All systems reviewed & are unremarkable except as noted in HPI and below Physical Exam Vital Signs: Last Vital Signs Temp 98.2 F 11/18/23 08:17 Pulse 85 11/18/23 08:17 BP 116/78 11/18/23 08:17 Pulse Ox 97 11/18/23 08:17 Oxygen Delivery Method Room Air 11/18/23 08:17 BMI result Body Mass Index 38.7 Const General: cooperative, comfortable and no acute distress Nutritional Appearance: obese Orientation/consciousness: patient oriented x3 Skin Other: Superficial Laceration right lower Ankle, tender, red and crusting. General skin exam: dry skin and erythema Neuro General: patient oriented x3, gait normal and moves all extremities Psych Speech and movement: Normal speech and movement present Assessment & Plan Assessment & Plan (1) Cellulitis: Code(s): L03.90 - Cellulitis, unspecified Qualifiers: Laterality: right Site of cellulitis: extremity Site of cellulitis of extremity: lower extremity Qualified Code(s): L03.115 - Cellulitis of right lower limb Plan: Ordered Abx Keep the area clean and dry. Medications: New cephalexin 500 mg PO BID 7 days 14 caps 0RF L03.115 - Cellulitis of right lower limb Coding Level of Care Code Est Pt Level 3 (93978) Diagnoses Cellulitis of right lower extremity L03.115 Laterality: right Site of cellulitis: extremity Site of cellulitis of extremity: lower extremity Time Spent (min) 15
[2023-11-18 08:17] VITALS: BP 116/78; PULSE 85; TEMP 36.8; O2SAT 97; BMI 38.7
--- OUTSIDE RECORDS SUMMARY | 2023-11-20 23:34 | XMS_ITS | Continuity of Care Document ---
Author Organization [facility] ter Address [address] [place] [id number] Care Team Providers Care 3D Designer Name Role Phone Pedro Pablo ORELLANA, Emile Hdz Primary Care Physician Encounter [facility] Date(s): 10/20/23 - 10/21/[address] [address] Discharge Disposition: A-D/C Home Attending Physician: Steve Escamilla MD Admitting Physician: Steve Escamilla MD Referring Physician: Steve Escamilla MD Allergies, Adverse Reactions, Alerts Substance Reaction Severity Status aspirin increased GI bleeding Moderate Active Lipitor muscle aches Moderate Active Colloidal Oatmeal skin eruptions Moderate Active Medications aspirin 81 mg oral delayed release tablet = 81 mg, By Mouth, Daily, # 30 tablet, 3 Refills, Maintenance, 10/21/23 9:25:00 EDT, EC Tablet, [facility], Partial fill upon patient request if the prescription is for a schedule II opioid drug., 177.8, cm, 10/20/23 20:43:00 EDT, Height... Start Date: 10/21/23 Stop Date: 02/18/24 Status: Ordered buPROPion 150 mg/24 hours (XL) oral tablet, extended release 1 tablet = 150 mg, By Mouth, Daily at bedtime, 0 Refills, Maintenance, 08/19/23 11:36:00 EDT Start Date: 08/19/23 Status: Ordered buPROPion 300 mg/24 hours (XL) oral tablet, extended release 1 tablet = 300 mg, By Mouth, Daily in AM, Maintenance, 10/18/23 10:49:00 EDT Start Date: 10/18/23 Status: Ordered Calcium Supplement Calcium Supplement, 240 mg, By Mouth, Daily at bedtime, Maintenance, 10/18/23 10:53:00 EDT, Supply Start Date: 10/18/23 Status: Ordered clopidogrel 75 mg oral tablet 75 mg, By Mouth, Daily, # 30 tablet, Refills 3, Tot. Refills 3, Maintenance, 10/21/23 9:25:00 EDT, Route to Pharmacy Electronically, [facility], Partial fill upon patient request if theprescription is for a schedule II opioid drug., 177... Start Date: 10/21/23 Stop Date: 02/18/24 Status: Ordered ferrous sulfate 324 mg (65 mg elemental iron) oral delayed release tablet 1 tablet = 324 mg, By Mouth, Daily at bedtime, Maintenance, 10/18/23 11:02:00 EDT Start Date: 10/18/23 Status: Ordered FLUoxetine 40 mg oral capsule 1 capsule = 40 mg, By Mouth, 2 times a day Start Date: 08/19/23 Status: Ordered mesalamine 1.2 g oral delayed release tablet 4 tablet = 4.8 Gm, By Mouth, Daily in AM, 0 Refills, Maintenance, 08/19/23 10:00:00 EDT Start Date: 08/19/23 Status: Ordered metoprolol succinate 25 mg oral capsule, extended release 1 capsule = 25 mg, By Mouth, Daily at supper, # 30 capsule, 0 Refills, Maintenance, 03/17/22 23:29:00 EST, ER Capsule, [id number], Partial fill upon patient request if the prescription is for a schedule II opioid drug., 178, cm, 03/17/22 16... Start Date: 03/17/22 Status: Ordered Multivitamin 1 tablet, By Mouth, Daily, Maintenance, 10/18/23 10:52:00 EDT Start Date: 10/18/23 Status: Ordered rosuvastatin 5 mg oral capsule 1 capsule = 5 mg, By Mouth, Daily in AM, 0 Refills, Maintenance, 03/17/22 17:01:00 EST, Capsule Start Date: 03/17/22 Status: Ordered tamsulosin 0.4 mg oral capsule 0.4 mg, 1, capsule, By Mouth, Daily in AM, Refills 0, Maintenance, 03/17/22 17:00:00 EST Start Date: 03/17/22 Status: Ordered torsemide 10 mg oral tablet 1 tablet = 10 mg, By Mouth, Daily in AM Start Date: 08/19/23 Status: Ordered Vitamin D3 2000 intl units oral capsule 1 capsule = 50 mcg, By Mouth, Daily, 0 Refills, Maintenance, 08/19/23 9:59:00 EDT, Capsule Start Date: 08/19/23 Status: Ordered Problem List Condition Confirmation Course Effective Dates Status Health St atus Informant Atrial fibrillation, chronic Confirmed Active Obese class II Confirmed Active Results Radiology Reports * Exam Date Time Procedure Performing Provider Status 10/20/23 5:20 PM Chest 2 Views Frontal and Lat Andreina Caicedo; Auth (Verified) Notes: (Chest 2 Views Frontal and Lat) Reason For Exam: watchman placement;Postop RESULT: Chest 2 Views Frontal and Lat Chest 2 Views Frontal and Lat Reason: Postop; watchman placement; Clinical Question(s): Postop COMPARISON: 05/24/2022 FINDINGS: LINES AND TUBES: None. LUNGS AND PLEURA: Mild atelectasis at the lung bases. Normal pulmonary vascularity. No pleural effusion. No pneumothorax. HEART, MEDIASTINUM AND FARHAT: Heart size is at the upper limits of normal. Uncoiled aorta. Post watchman placement. BONES AND SOFT TISSUES: No acute abnormality. IMPRESSION: Post Watchman placement. No acute abnormality. WSN: [id number] Ordering Physician: Steve Escamilla Dictated By: Elizabeth Ponce MD Dictated Date/Time: 10/20/23 5:25 pm Reviewed By: Elizabeth Ponce MD Signed By: Elizabeth Ponce MD Signed Date/Time: 10/20/23 5:25 pm Transcribed By: IWONA Transcribed Date/Time: 10/20/23 5:22 pm Vital Signs Most recent to oldest [Reference Range]: 1 2 3 Height 177.8 cm (10/20/23 8:43 PM) 177.8 cm (10/20/23 6:31 PM) 177.8 cm (10/20/23 9:30 AM) Weight 114.9 kg (10/21/23 4:00 AM) 122.3 kg (10/20/23 4:00 PM) 119.3 kg (10/20/23 9:30 AM) Oxygen Saturation [94-100 %] 93 % *L* (10/21/23 4:00 AM) 95 % (10/20/23 8:43 PM) 94 % (10/20/23 4:00 PM) Pulse Rate [55-90 bpm] 86 bpm (10/21/23 4:00 AM) 92 bpm *H* (10/20/23 8:43 PM) 89 bpm (10/20/23 6:31 PM) Body Mass Index [18.5-24.99 kg/m2] 37.74 kg/m2 *>HHI* (10/20/23 9:30 AM) 37.74 kg/m2 *>HHI* (10/18/23 11:25 AM) Blood Pressure [90-138/55-84 mm Hg] 112/69mm Hg (10/21/23 4:00 AM) 111/67mm Hg (10/20/23 8:43 PM) 135/77mm Hg (10/20/23 6:31 PM) Respiratory Rate [16-30 br/min] 18 br/min (10/21/23 4:00 AM) 16 br/min (10/20/23 8:43 PM) 16 br/min (10/20/23 4:00 PM) Temperature [96.8-100.4 DegF] 98.9 DegF (10/21/23 4:00 AM) 99.0 DegF (10/20/23 8:43 PM) 98.4 DegF (10/20/23 4:00 PM) Liters per Minute 2 L/min (10/20/23 12:45 PM) 3 L/min (10/20/23 12:40 PM) Mode of Delivery (Oxygen) Room air (10/21/23 4:00 AM) Room air (10/20/23 8:43 PM) Room air (10/20/23 4:00 PM) Blood pressure sites Arm, right (10/21/23 4:00 AM) Arm, right (10/20/23 8:43 PM) Arm, right (10/20/23 6:31 PM) Temperature Route Oral (10/21/23 4:00 AM) Oral (10/20/23 8:43 PM) Oral (10/20/23 4:00 PM) Dry Weight 119.3 kg (10/18/23 11:25 AM) Weight Obtained Via Bed scale (10/21/23 4:00 AM) Bed scale (10/20/23 4:00 PM) Standing scale (10/20/23 9:30 AM) Dry Weight Obtained Via Patient/family stated (10/18/23 11:25 AM) Social History Social History Type Response Smoking Status Never (less than 100 in lifetime) entered on: 08/19/23 Sex Note * Kee Muñiz RN: PERFORM Event Display: Discharge/Transfer Note Hospital Authored Date: [id number] Nursing Discharge Note Entered On: 10/21/2023 10:15 EDT Performed On: 10/21/2023 10:15 EDT by Kee Muñiz RN Nursing Discharge Note 2 Discharge Time : 10/21/2023 10:15 EDT Discharge Level of Care at Discharge : Home/[facility]oster [facility] Patient Left Unit Via : Wheelchair Patient Accompanied Off Unit with : Responsible adult DC Instructions Provided & Signed by Pt : Yes Patient Understands D/C Instructions : Yes Patient Instructions Discharge Signed : Yes Did Pt have Specialty Bed or Wound Vac : No Kee Muñiz RN - 10/21/2023 10:15 EDT * Surendra Light: PERFORM Event Display: Discharge/Transfer Note Hospital Authored Date: [id number] Patient: ??RONDA SEDA ? Age:??73 Years?Sex:??Male?:??1950?? Patient Information Discharge Location: Primary Care Physician: Emile Chamorro NP Admit Date/Time: 10/20/23 09:13 Discharge Disposition Discharge Disposition: Home: No Services Discharge Diagnosis Atrial fibrillation, chronic (I48.20) S/p LAOO _ Discharge Medications Aspirin (aspirin 81 mg oral delayed release tablet)?81?Milligram?By Mouth?Daily?for 30?Days BuPROpion (buPROPion 150 mg/24 hours (XL) oral tablet, extended release)?1?tab(s)?150?Milligram?By Mouth?Daily at bedtime BuPROpion (buPROPion 300 mg/24 hours (XL) oral tablet, extended release)?1?tab(s)?300?Milligram?By Mouth?Daily in AM Cholecalciferol (Vitamin D3 2000 intl units oral capsule)?1?capsule?50?Microgram?By Mouth?Daily Clopidogrel (clopidogrel 75 mg oral tablet)?75?Milligram?By Mouth?Daily?for 30?Days Ferrous Sulfate (ferrous sulfate 324 mg (65 mg elemental iron) oral delayed release tablet)?1?tab(s)?324?Milligram?By Mouth?Daily at bedtime Fluoxetine (FLUoxetine 40 mg oral capsule)?1?capsule?40?Milligram?By Mouth?2 times a day Mesalamine (mesalamine 1.2 g oral delayed release tablet)?4?tab(s)?4.8?gram?By Mouth?Daily in AM Metoprolol (metoprolol succinate 25 mg oral capsule, extended release)?1?capsule?25?Milligram?By Mouth?Daily at supper Miscellaneous Rx (Calcium Supplement)?240?Milligram?Oral?Daily at Bedtime Multivitamin?1?tab(s)?By Mouth?Daily Rosuvastatin (rosuvastatin 5 mg oral capsule)?1?capsule?5?Milligram?By Mouth?Daily in AM Tamsulosin (tamsulosin 0.4 mg oral capsule)?0.4?Milligram?1?capsule?By Mouth?Daily in AM torsemide (torsemide 10 mg oral tablet)?1?tab(s)?10?Milligram?By Mouth?Daily in AM ? Inpatient Medications Medications (19) Active SCHEDULED: (10) Aspirin 81 mg EC Tablet (Aspirin Tablet) ??81 mg, By Mouth, Daily BuPROPion XL 150 mg Tablet (BuPROpion XL Tablet) ??150 mg, By Mouth, Daily BuPROPion XL 300 mg Tablet (BuPROpion XL Tablet) ??300 mg, By Mouth, Daily Clopidogrel 75 mg Tablet (Clopidogrel Tablet) ??75 mg, By Mouth, Daily Fluoxetine 20 mg Capsule (FLUoxetine 20 mg oral capsule) ??40 mg, By Mouth, 2 times a day Mesalamine 250 mg CR Capsule (Mesalamine Capsule) ??1 Gm 4 capsule, By Mouth, 4 times a day Metoprolol 25 mg XL Tablet (metoprolol 25 mg oral tablet, extended release) ??25 mg, By Mouth, Daily at supper Rosuvastatin 5 mg Tablet (Crestor 5 mg oral tablet) ??5 mg, By Mouth, Daily Tamsulosin 0.4 mg Capsule (tamsulosin 0.4 mg oral capsule) ??0.4 mg, By Mouth, Daily in AM Torsemide 20 mg tablet (torsemide 20 mg oral tablet) ??10 mg 0.5 tablet, By Mouth, Daily in AM CONTINUOUS: (0) PRN: (9) Acetaminophen 325 mg Tablet (Acetaminophen 325 mg Oral Tablet (PACU ONLY)) ??975 mg, By Mouth, Once Chloraseptic Lozenge ??1 lozenge, By Mouth, Every 3 hours diphenhydrAMINE 50 mg/mL Inj (DiphenhydrAMINE Inj (PACU ONLY)) ??12.5 mg 0.25 mL, IV Push, Once FENTanyl 50 mcg/mL Inj (2 mL) (Fentanyl Inj (PACU ONLY)) ??25 mcg 0.5 mL, IV Push Slowly, Every 5 minutes FENTanyl 50 mcg/mL Inj (2 mL) (Fentanyl Inj (PACU ONLY)) ??50 mcg 1 mL, IV Push Slowly, Every 5 minutes Haloperidol Lactate 5 mg/mL Inj (1 mL) (Haloperidol LACTATE Inj (PACU ONLY)) ??1 mg 0.2 mL, IV Push, Once nalOXONE ??400mcg/mL Inj (nalOXONE Inj) ??0.04 mg 0.1 mL, IV Push, Every 5 minutes Ondansetron 2mg/mL Inj (2mL Vial) (Ondansetron Inj (PACU ONLY)) ??4 mg, IV Push, Once OxyCODONE 5 mg IR Tablet (Oxycodone 5mg Oral Tablet (PACU ONLY)) ??5 mg, By Mouth, Once ? Allergies Allergies ?(Active and Proposed Allergies Only) Colloidal Oatmeal? (Severity: Moderate, Onset: Unknown) ?Reactions: skin eruptions Lipitor? (Severity: Moderate, Onset: Unknown) ?Reactions: muscle aches aspirin? (Severity: Moderate, Onset: Unknown) ?Reactions: increased GI bleeding ? Hospital Course Patient presents??to [facility]??for??outpatient elective procedure.?? Patient underwent??successful occlusion of the left atrial appendage with a??31 mm watchman flex device. Post procedure hospitalization was uneventful. On the morning of discharge, Tele revealed??sinus rhythm, and pa tient ??denied chest pain, shortness of breath, headache, palpitations, all other systems were reviewed and negative.??Chest X-Day showed no signs of pneumothorax.??There was no sign of??bleeding, infection,??hematoma,??or swelling??on??bilateral groin incisions. ??I discussed with patient??post car e??instructions. ??Patient will be discharged home today. ??We will follow-up with??primary cardiology??post procedure.? Objective Assessment and Plan Discharge Planning:?Aspirin 81 mg and clopidogrel 75 mg daily. ??Appendage imaging in 45 days is no evidence of significant peridevice leak?or device related thrombus continue the aspirin and clopidogrel for a total?of 6 months and at the end of 6 months discontinue the clopidogrel. ??Follow up with Dr. Corbin Thmoas his cane stripper. ? Vital Signs?? Temperature: 98.9 DegF (10/21/23 04:00:00) Temperature Route: Oral (10/21/23 04:00:00) Pulse Rate: 86 bpm (10/21/23 04:00:00) Heart Rate Monitored: 74 bpm (10/20/23 15:00:00) Respiratory Rate: 18 br/min (10/21/23 04:00:00) Systolic Blood Pressure: 112 mm Hg (10/21/23 04:00:00) Diastolic Blood Pressure: 69 mm Hg (10/21/23 04:00:00) Blood pressure sites: Arm, right (10/21/23 04:00:00) Mean Arterial Pressure: 82 mm Hg (10/20/23 20:43:00) Pulse Pressure: 43 mm Hg (10/21/23 04:00:00) Oxygen Saturation:??93 %??Low (10/21/23 04:00:00) Liters per Minute: 2 L/min (10/20/23 12:45:00) Mode of Delivery (Oxygen): Room air (10/21/23 04:00:00) Early Warning Score: 2 (10/21/23 08:37:48) ? . Physical Exam Gen: well appearing, NAD HEENT: mmm, no oral exudates Neck: Normal JVD CV: rrr, no m/r/g Abd: soft, NT, ND Lungs/chest: normal breath sounds, no crackles or wheezes Extremities: no pitting edema, 2+ pulses Neuro: moving all 4 extremities spontaneously Skin: no rash Pending Results No Pending Results Post Discharge Care Discharge ?10/21/23 9:26:00 EDT Discharge Prescriptions ?ePrescribed, 10/21/23 9:26:00 EDT Home Health Face to Face ^HomeHealthFTF 40??minutes spent on discharge * Doug MUKHERJEE, Sonam: PERFORM Event Display: Patient Education/Instruction Authored Date: [id number] Inpatient Adult Discharge Instructions. [address] [id number] Name: SEDA BOND : 1950?? Visit: 10/20/2023 09:13?? Current Date: 10/21/2023 09:32 ?? Account: [id number]?? Inpatient Adult Discharge Instructions We would like to thank you for allowing us to assist you with your healthcare needs. The following includes patient education materials and information regarding your injury/illness. Our entire staffstrives to provide an excellent experience for our patients and their families. PLEASE ENSURE YOU FOLLOW-UP PER THE INSTRUCTIONS BELOW! ?? YOUR OPINION IS IMPORTANT TO US! Please complete the survey you may receive by mail or email. Your feedback will be used to make improvements to the healthcare experiences of our patients and their families. Surveys are administered by [employer], 1,2,3 [employer]. ?? If further treatment with your primary care physician or another doctor is recommended, it is important for you to keep the appointment. Call your primary care physician or return to the Emergency Department immediately if your condition worsens, fails to improve, or new symptoms develop. If you need to find a doctor, you can call [facility] [employer] for a referral at [phone] or toll free at [phone] ([phone]) or log in to [email or web address] ?? [facility], in keeping with [facility] guidance, no longer requires face masks for staff, patientsor visitors in most situations. Similiar to time spent indoors at other locations, there is the chance that you were exposed to repiratory viruses during your time with us (such as flu or COVID-19). If you develop symptoms concerning for a viral respiratory infection, please seek testing (and treatment if indicated) from your medical provider or home test kit. ?? You can view and manage your care through the patient portal or by using a health care lópez of your choosing. [employer] is a website that allows you to securely view your medical information including your hospital discharge summary, office visit summaries, medications and follow-up visits. You can also request appointments, renew medications, and request access to your medical information using a health care lópez of your choosing, or just ask a question. You can enroll at [email or web address] or register during your next office visit. You have been discharged from [facility], Patient Care Unit: M5??. If you have any questions regarding these instructions, including results of studies pending, afteryou leave, please call us and we will be happy to assist you 19/10. [facility] Your Care Team Attending Physician Steve Escamilla MD?? Consulting Providers Steve Escamilla MD?? Discharging Providers Surendra Light Your Diagnosis Atrial fibrillation, chronic Tests Performed Below is a partial list of the tests performed during your hospitalization. You may have had other tests and procedures not included in this list. Please discuss all test results with your provider. BUN CBC Creatinine Electrolytes INR Lytes POC Hemochron ACT-LR Type and Screen XR Chest 2 Views Frontal and Lat BUN?? CBC?? Creatinine?? Electrolytes?? INR?? POC ACT-LR (POC Hemochron ACT-LR)?? Type and Screen?? Chest 2 Views Frontal and Lat (XR Chest 2 Views Frontal and Lat)?? Primary Care Provider Pedro Pablo ORELLANA , Emile Hdz? Advance Directive Health Care Proxy on File No Discharge Vitals Temperature: 98.9 DegF Height: 177.8 cm Pulse Rate: 86 bpm Weight: 114.9 kg Respiratory Rate: 18 br/min Body Mass Index:??37.74 kg/m2??Critical Systolic Blood Pressure: 112 mm Hg Body surface area: 2.43 Diastolic Blood Pressure: 69 mm Hg ?? Oxygen Saturation:??93 %??Low ?? Studies Pending All studies ordered during this hospital stay have been completed unless listed below. Please discuss all pending results with your provider listed above in these instructions. ?? No incomplete studies found?? What to do next Instructions From Your Doctor ?? Orders? 10/21/23 9:26:00 EDT?? Prescriptions??, ??10/21/23 9:26:00 EDT?? Discharge Medications SEDA BOND :1950 Visit Date:10/20/2023 Medications: Please continue your medications until treatment is completed or stopped by your provider. Medications not listed below should be discontinued. Discuss any questions related to medications with your provider. What How Much When Instructions Next Dose New Aspirin (aspirin 81 mg oral delayed release tablet) 81 Milligram Oral Daily Duration: 30 Days Refills: 3 Pickup at [facility] 3 tomorrow AM New Clopidogrel (clopidogrel 75 mg oral tablet) 75 Milligram Oral Daily Duration: 30 Days Refills: 3 Pickup at [facility] 3 tomorrow AM Unchanged BuPROpion (buPROPion 150 mg/ 24 hours (XL) oral tablet, extended release) 1 tab(s) Oral Daily at Bedtime tonight Unchanged BuPROpion (buPROPion 300 mg/ 24 hours (XL) oral tablet, extended release) 1 tab(s) Oral Daily in the morning tomorrow AM Unchanged Cholecalciferol (Vitamin D3 2000 intl units oral capsule) 1 capsule Oral Daily tomorrow AM Unchanged Ferrous Sulfate (ferrous sulfate 324 mg (65 mg elemental iron) oral delayed release tablet) 1 tab(s) Oral Daily at Bedtime tonight Unchanged Fluoxetine (FLUoxetine 40 mg oral capsule) 1 capsule Oral Twice a day tonight Unchanged Mesalamine (mesalamine 1.2 g oral delayed release tablet) 4 tab(s) Oral Daily in the morning tomorrow AM Unchanged Metoprolol (metoprolol succinate 25 mg oral capsule, extended release) 1 capsule Oral Daily at supper tonight Unchanged Miscellaneous Rx (Calcium Supplement) 240 Milligram Oral Daily at Bedtime tonight Unchanged Multivitamin 1 tab(s) Oral Daily tomorrow AM Unchanged Rosuvastatin (rosuvastatin 5 mg oral capsule) 1 capsule Oral Daily in the morning tomorrow AM Unchanged Tamsulosin (tamsulosin 0.4 mg oral capsule) 1 capsule Oral Daily in the morning tomorrow AM Unchanged torsemide (torsemide 10 mg oral tablet) 1 tab(s) Oral Daily in the morning tomorrow AM Pharmacy Information [facility] 3: [address] [place] [address] [phone] ?? What When Comments Stop Taking Warfarin (warfarin 5 mg oral tablet) TAKE 1 TO 2 TABLETS BY MOUTH DAILY INSTRUCTED BY CLINIC ?? Prescription Given During Visit Aspirin (aspirin 81 mg oral delayed release tablet) - 81 mg, By Mouth, Daily, # 30 tablet, 3 Refills, [address] [address] [phone]?? Clopidogrel (clopidogrel 75 mg oral tablet) - 75 mg, By Mouth, Daily, # 30 tablet, 3 Refills, [address] [place] [phone]?? Laboratory Results Below is a partial list of the most recent Laboratory test results done prior to this discharge. You may have had other tests and procedures not included in this list. Please discuss all test resultswith your provider. Est Creatinine Clearance - 67.94 mL/min (10/21/2023) BUN (10/21/2023) ???BUN - 15 mg/dL CBC (10/21/2023) ???WBC - 8.7 k/mm3???RBC - 3.30 m/mm3???Hgb - 10.0 Gm/dL???Hct - 31.7 %???MCV - 96.1 femtoliters???MCH - 30.3 pg???MCHC - 31.5 g/dL???Platelet Count - 268 k/mm3???RDW-SD - 51.2 femtoliters???MPV - 9.2 femtoliters???Nucleated RBC (Automated) - 0.0 #/100 WBC'S???Abs. NRBC - 0.0 k/mm3 Creatinine (10/21/2023) ???Creatinine-Blood - 0.97 mg/dL???Estimated GFR Creatinine - 81 ML/MIN/1.73 M2 Electrolytes (10/21/2023) ???Sodium - 142 mmol/L???Potassium - 4.4 mmol/L???Chloride - 107 mmol/L???Bicarbonate Level - 25 mmol/L???Anion Gap - 10 INR (10/21/2023) ???INR - 1.1???Protime (PT) - 11.4 seconds Lytes (10/20/2023) ???Sodium - 142 mmol/L???Potassium - 4.8 mmol/L???Chloride - 106 mmol/L???Bicarbonate Level - 26 mmol/L???Anion Gap - 10 POC Hemochron ACT-LR (10/20/2023) ???POC ACT-LR - 296.0 seconds Type and Screen (10/20/2023) ???Blood Type - AB Positive???Antibody Screen - Negative Allergies (NKA means No Known Allergies) Colloidal Oatmeal??(skin eruptions) Lipitor??(muscle aches) aspirin??(increased GI bleeding) Problems Active Problems??(2) Atrial fibrillation, chronic?? Obese class II?? Education Materials Below is the list of Educational Leaflet Providered with your Discharge Instructions. Valuables and Belongings I fully understand and agree that [facility] accepts no responsibility for all my personal property including clothing, toilet articles, radios, jewelry, dentures, hearing aids, rings, money, or any other property that is in my possession or is brought to me after admission. I understand certain valuables may be placed in a hospital safe for a short period of time. I understand that the hospital is not liable for loss or damage due to accident, fire, or other natural occurrence while said property is in the safe. I accept full responsibility for any personal property that I keep with me, and will not hold the hospital responsible in case of loss or disappearance. I acknowledge that i have been encouraged to send valuables and belongings home. ?? Review of Valuable and Belonging List: With patient Date for Pt to Sign Valuables/Belongings: 10/20/23 18:30:00 ?? Other Discharge Information ? Pulmonary Rehab Status?? Pulmonary Rehab Discharge Status?? Respiratory Rate: 18 br/min ? Common Emergency Awareness Tips IS IT A STROKE? Act FAST and Check for these signs: FACE Does the face look uneven? ARM Does one arm drift down? SPEECH Does their speech sound strange? TIME Call at any sign of stroke ?? Heart Attack Signs Chest discomfort: Most heart attacks involve discomfort in the center of the chest and lasts more than a few minutes, or goes away and comes back. It can feel like uncomfortable pressure, squeezing, fullness or pain. Discomfort in upper body: Symptoms can include pain or discomfort in one or both arms, back, neck, jaw or stomach. Shortness of breath: With or without discomfort. Other signs: Breaking out in a cold sweat, nausea, or lightheaded. Remember, MINUTES DO MATTER. If you experience any of these heart attack warning signs, call to get immediate medical attention! ?? Smoking can increase your chances of developing chronic health problems and can cause harmful effects to other family members in your house. If you smoke, you are strongly encouraged to quit. Please call [facility] [employer] Link at [phone] or [phone] ([phone]) or log in to [email or web address] for referrals to smoking cessation programs. ?? 448 Suicide & Crisis Lifeline is available 19/10 if you or someone you know needs to find a reason to keep living. By calling 699 you'll be connected to a skilled, trained counselor at a crisis center in your area. INPATIENT DISCHARGE INSTRUCTIONS SIGNATURE PAGE SEDA BOND Location:[facility] Registration Date and Time:10/20/2023 09:13 EDT Primary Care Physician: Pedro Pablo ORELLANA , Emile Hdz, Attending Physician: Andi POWELL, Steve S, I RONDA, SEDA, have received the above patient education materials/instructions and have verbalized understanding. If ambulance or transport services are being used I further acknowledge being given a choice of service. ?? If you need to contact me, please call me at this number: . Patient/Mail Handler Assistant Name: Patient/Mail Handler Assistant Signature: Relationship to Patient: Witness Name/Signature: Date: * Sonam Camacho RN: PERFORM Event Display: Patient Education Leaflets Authored Date: [id number] M-Groin I Discharge Instructions ?? 179 Groin Discharge Instructions No heavy lifting over 10 pounds (for example: gallon of milk) 1 week following the procedure; gradually increase normal activity over the next 5 days. Avoid straining/pushing when moving bowels You may feel like resting more after your procedure. Slowly start to do more each day. Rest when you feel it is needed. Make sure to look at your procedure site every day until it is completely healed. You may see bruising at the puncture site and that is common after the procedure. You may shower the day after your procedure. Remove the band aid before showering. Wash the area gently with soap and water. Leave open to air. Do not take tub baths, hot tubs, soaking of the puncture site or swimming for 1 week. Do not put any creams, powders or lotions on your puncture site You may resume sexual activity the day after your procedure; avoid bending the hip on ?? the side of the groin puncture excessively and any strenuous positions for 1 week. Call your doctor if your procedure site develops any of the following: ??? New onset severe pain ??? New onset lump or swelling ??? Bleeding that does not stop with lightpressure ? * Sonam Camacho RN: PERFORM Event Display: Patient Education Leaflets Authored Date: [id number] Surgery Left Atrial Appendage Closure Discharge Instructions ?? 293 Left Atrial Appendage Closure Discharge Instructions ?? Groin Puncture Site Discharge Instructions ? No heavy lifting over 10 pounds (for example: gallon of milk) 1 week following the procedure; gradually increase normal activity over the next 5 days. Avoid straining/pushing when moving bowels. ??? You may feel like resting more after your procedure. Slowly start to do more each day. Rest whenyou feel it is needed. ??? Make sure to look at your procedure site every day until it is completely healed. You may see bruising at the puncture site and that is common after the procedure. ??? You may shower the day after your procedure. Remove the band aid before showering. Wash the area gently with soap and water. Leave open to air. Do not take tub baths, hot tubs, soaking of the puncture site or swimming for 1 week. Do not put any creams, powders or lotions on your puncture site. ??? You may resume sexual activity the day after your procedure; avoid bending the hip on the side of the groin puncture excessively and any strenuous positions for 1 week. ??? Call your doctor if your procedure site develops any of the following: - New onset severe pain - New onset lump or swelling - Bleeding that does not stop with light pressure ? Medications: ? You must continue to take your blood thinning medication. Call your procedure doctor if you have any questions or concerns. ??? If you are prescribed warfarin/Coumadin, have your INR checked in 3-4 days and the next week. The target INR is 2.0 ??? 3.0. ?? The nurse will discuss with you how ofte n it is necessary to check your INR. If you need a referral to the [facility] Coumadin/warfarin clinic, please speak with your provider and one can be set up for you. If you choose to follow up at yourown warfarin/Coumadin clinic (or doctor's office), please make sure all records are forwarded to the physician who performed the left atrial appendage closure procedure. ? Follow-up schedule after your Left Atrial Appendage Closure Procedure: ? Around 1 Week: the nurse will call you to ask how you are and confirm your follow-up tests and appointments. ??? Around 45 Days: You will have a Transesophageal Echocardiogram (ELIANA). A nurse willcall you with instructions. ? - Remember, you cannot have anything to eat or drink a minimum of 6 hours before the ELIANA. If your ELIANA is scheduled for the morning, do not eat anything after midnight. ? - The doctor will give you directions about your blood thinning medication after the ELIANA.? Day after ELIANA: The nurse will call you to review the directions you have received after your ELIANA. ??? Office Visit: An office visit may be scheduled with you, after the ELIANA, to discuss results and discuss medication regimen.? Around 6 months: One of our providers will call you to discussyour blood thinning medications. ?? Dental Visits: The 1st??6 months after the procedure you will need antibiotics before you have dental work. If you have dental work scheduled, please call the cane stripper? who performed the left atrial appendage closure procedure, for further instructions. ?? MRI Scans: Prior to undergoing an MRI scan, inform your doctor or ct technologist that you have a Left Atrial Appendage Closure Device, and show them the Device Implant Card. ? Potential Problems: Please call us if you develop ? A fever of 100.5 or higher during your first few days at home. ??? Increased swelling of a groin bruise. A groin bruise is to be expected due to the blood thinners used during your procedure.?? Discoloration will spread as you move about but swelling should decrease. ??? Persistent throat and groin soreness/discomfort that does not resolve within a few days. ??? Shortness of breath or a heartrate of more than 120 beats per minute. ??? A new persistent cough or unexplained shortness of breath. ??? Decreased urination. ??? Weight gain of 2 pounds in one day OR 5 pounds in one week. ??? Pain, change in color, temperature or swelling in lower legs or feet. ??? Fevers greater than 100.5 degrees, redness, swelling, incision site hot to touch, foul or colored drainage from the incision site. These are all signs of an infection and should be reported immediately to the physician who implanted your left atrial appendage occlusion device. ? Post Left Atrial Appendage Closure Discharge Instructions ? Please see the implanting physician within 2 weeks of discharge. ??? After a minimum of 45 daysfrom date of procedure you will need to return to the hospital to have an outpatient ELIANA performed to determine if the implant has closed the opening of the appendage. If the ELIANA reveals that the appendage is not fully closed - you will require another ELIANA at a later date to reassess. Once the results of the ELIANA have been reviewed, the physicians will determine what medication changes need to be made.? 6 months post implant, the nurse coordinator will reach out to you for a brief telephonesurvey. This allows us to complete required patient monitoring. If your physician determines that you may benefit from an EKG and lab work, the nurse coordinator can assist you with setting up this appointment. ??? At 1 and 2 years post implant you will be contacted by the nurse coordinator for a brief interview. This allows us to complete required patient monitoring. ??? Prior to any dental workor surgery notify your dentist or surgeon about your Left Atrial Appendage Closure implant and the medications you are on. ??? Maintain regular follow-up visits with your cane stripper. ??? Keep all bloodwork appointments. ? Medications: ? DO NOT STOP TAKING YOUR BLOOD THINNING MEDICATIONS WITHOUT SPEAKING TO THE PHYSICIAN WHO PERFORMED YOUR LEFT ATRIAL APPENDAGE CLOSURE FIRST! ??? Take your medications as ordered at the time of discharge. ??? Do NOT stop taking any medications without first discussing it with your doctor. ??? DoNOT take over the counter medications, herbal or natural supplements without first discussing with your doctor. ??? Notify all your doctors of current medications lists. Follow instructions on medication administration especially if ???blood thinning?? medications are prescribed. Your doctor will monitor your medications and will advise you when or if you can stop taking them. ?? For questions/concerns, please call the office at [phone]. Please notify the office staff thatyou have had a Left Atrial Appendage Closure Device.? For emergencies, call [phone]. ?? * Event Display: Hemodynamic Procedure Report Authored Date: EKG study * Event Display: ECG 12-Lead Authored Date: Please click on pdf link to open report * Event Display: ECG 12-Lead Authored Date: Ventricular Rate: 101 BPM QRS Duration: 108 ms Q-T Interval: 402 ms QTC Calculation(Bazett): 521 ms R [place]: -50 degrees T [place]: 141 degrees Atrial fibrillation with rapid ventricular response Left anterior fascicular block ST and T wave abnormality, consider anterolateral ischemia Prolonged QT Abnormal ECG Confirmed by ABNER PEACE ([id number]) on 10/21/2023 8:56:27 AM [place]: ABNER PEACE * Event Display: ECG 12-Lead Authored Date: Please click on pdf link to open report * Event Display: ECG 12-Lead Authored Date: Ventricular Rate: 73 BPM Atrial Rate: 53 BPM QRS Duration: 104 ms Q-T Interval: 424 ms QTC Calculation(Bazett): 467 ms R [place]: -35 degrees T [place]: -31 degrees Atrial fibrillation Left axis deviation ST and T wave abnormality, consider anterolateral ischemia Abnormal ECG When compared with ECG of 20-OCT-2023 10:26, No significant change was found Confirmed by SREEDHAR DONG MD () on 10/20/2023 1:22:23 PM [place]: SREEDHAR DONG MD * Event Display: ECG 12-Lead Authored Date: Please click on pdf link to open report * Event Display: ECG 12-Lead Authored Date: Ventricular Rate: 84 BPM Atrial Rate: 234 BPM QRS Duration: 106 ms Q-T Interval: 416 ms QTC Calculation(Bazett): 491 ms R [place]: -37 degrees T [place]: -10 degrees Atrial fibrillation Left axis deviation Nonspecific ST and T wave abnormality Abnormal ECG When compared with ECG of 19-AUG-2023 09:46, Nonspecific T wave abnormality, worse in Anterior leads Confirmed by SREEDHAR DONG MD () on 10/20/2023 10:43:56 AM [place]: SREEDHAR DONG MD Cardiology * Event Display: Cardiac Rhythm Strips Authored Date: * Event Display: Cardiac Rhythm Strips Authored Date: Hospital Progress note * Kee Muñiz RN: PERFORM, SIGN, VERIFY Event Display: Progress Note Hospital Authored Date: Patient: SEDA BOND Age: 73 years Sex: Male : 1950 Associated Diagnoses: None Author: Kee Muñiz RN Findings Nursing Data Cardiac Data. 10/21/2023 9:06 EDT Cardiovascular Symptoms None Nail Bed Color, Fingers Aguilares Nail Bed Color, Toes [place] Skin Temperature Upper Extremities Warm Skin Temperature Lower Extremities Warm Pacemaker No Cardiac Rhythm Atrial fibrillation Capillary Refill < 3 seconds Radial Pulse, Left Normal Radial Pulse, Right Normal monitoring tech Yes Cardiovascular WNL except . Vital Signs : VITAL SIGNS SECTION 10/21/2023 4:00 EDT Temperature 98.9 DegF Temperature Route Oral Pulse Rate 86 bpm Respiratory Rate 18 br/min Systolic Blood Pressure 112 mm Hg Diastolic Blood Pressure 69 mm Hg Blood pressure sites Arm, right Pulse Pressure 43 mm Hg Oxygen Saturation 93 % L Mode of Delivery (Oxygen) Room air . Narrative/Incidental Pt. A+Ox4, VSS, controlled AFIB on tele. Surgical incision site on right groin from watchman procedure clean dry and intact. Removed by provider Surendra Petersen. Ambulating steady without assistance. Prepped for dc. * Subha Singh RN: PERFORM, SIGN, VERIFY Event Display: Progress Note Hospital Authored Date: [id number] Patient: SEDA BOND Age: 73 years Sex: Male : 1950 Associated Diagnoses: None Author: Subha Singh RN Findings Problem Related to Alteration in Cardiac Function (new) : Alteration in Cardiac Function/new 10/21/2023 1:00 EDT Alteration in Cardiac Status Related to Cardiac Procedure, Dysrhythmia Goals & Outcomes, Cardiac Status Pt will resume/maintain adequate cardiac output, Pt will resume/maintain adequate hemodynamic status, Pt will resume/maintain adequate respiratory function, Pt will resume/maintain intact neuro function, Pt will maintain adequate GI/ function appropriate for pt, Pt will maintain adequate nutrition status, Pt/caregiver will state understanding of diagnosis, Pt/caregiver will state strategies to reduce risk factors Cardiac Interventions Implemented Assess/monitor cardiac status, Assess/monitor neuro status, Assess/monitor respiratory status, Assess for tolerance of IV infusions; verify rate & dose, Call/Report variances in ECG to provider, Document & Monitor O2 Sats; Administer O2 as ordered, Ensure adequate caloric intake, If no bowel movement in 3 days activate bowel regime, Monitor & document daily weight, Monitor anticoagulation values, Monitor ECG w/administration of antiarrhythmics (CO 13.420), Obtain 12 Lead ECG and CXR as ordered, Prep pt for treatments & procedures, Teach/encourage deep breath & cough exercises, Teach/encourage use of incentive spirometer, Team conversation regarding appropriate level of care, Turn & reposition Q2 hours per activity restrictions, Useadjunctive therapies per Standards of Practice Goals/Interventions, Cardiac Yes Cardiac, Problem Start 10/20/2023 7:00 Reviewed Plan with, Cardiac Status Patient Patient Progression, Cardiac Status Patient progressing according to plan . Narrative/Incidental Pt. is A&O x4. Denies chest pain, palpitations, SOB, dizziness or N/V. Is on tele. Is on RA. Continent of bowel & bladder. +pulses, Rt groin dressing CDI. Pt states he is independent at home but has not been OOB on my shift so far. Tried to get a CPAP order from Dr Escamilla but since the patient doesn't know his settings and wasn't done at [facility] we were unable to and agreed to go one night without it. Safety maintained with bed locked in lowest position and call fernando in reach. * Steve Escamilla MD: PERFORM, SIGN, VERIFY Event Display: Progress Note Hospital Authored Date: Patient: SEDA BOND Age: 73 years Sex: Male : 1950 Associated Diagnoses: None Author: Steve Escamilla MD Patient complained of left tracheal discomfort. On questioning he states that on palpation he has mild discomfort however with swallowing his discomfort is worse. On exam there is no mass mild tenderness or evidence of tracheal shift. We discussed most likely this is related to the transesophageal echocardiogram or internal bruising. If symptoms change they will contact us. Patient Care team information Care Team Personnel Name: Subha Singh RN Position: S RN Member Role: Primary Care Nurse Name: Emile Chamorro NP Position: Reference Physician Member Role: PCP Address: Address: [address] [place] [address]- Name: Kee Muñiz RN Position: S RN Member Role: Primary Care Nurse Care Team Related Persons Name: SHERRON BOND Address: home [address] [place] [id number]
--- OUTSIDE RECORDS SUMMARY | 2023-11-20 23:34 | XMS_ITS ---
Author Organization [facility] Address [address] [place] [address] Care Team Providers Care Mitigation Supervisor Name Role Phone MARIAH DSOUZA Primary Care Provider Steven Florence Unavailable [phone] ALLERGIES No Known Allergies REASON FOR VISIT Patient presents today for CROHN'S MEDICATIONS Medication SIG (Take, Route, Frequency, Duration) Notes Start Date End Date Status Warfarin Sodium 5 MG Oral for 90 Active Metoprolol Succinate ER 25 MG TAKE 1 TABLET BY MOUTH ONCE DAILY IN THE MORNING . DO NOT CRUSH OR CHEW Diagnosis Unavailable Oral for 30 Active Lialda 1.2 GM 4 Orally Once a day for 90 days 03/17/2023 Active Iron 325 (65 Fe) MG 1 tablet Orally Once a day Active Probiotic 250 MG 1 capsule Orally onc e a day Active FLUoxetine HCl 40 MG 2 capsule Orally On ce a day Active Multi Vitamin/Minerals - 1 Orally QD Active rOPINIRole HCl 0.25 MG 1 tablet Orally Three times a day Active Tamsulosin HCl 0.4 MG 1 capsule Orally Once a day Active buPROPion HCl ER (XL) 150 MG 1 tablet in the morning Orally Once a day Active Mesalamine 1.2 GM 4 Orally Once a day Starting 05/20/2022 Active SOCIAL HISTORY Tobacco Use: Social History Observation Description Date Details (start date - stop date) Never Smoker NA - NA Sex Assigned At : Social History Observation Description Sex Assigned At Unknown Tobacco Use/Smoking Question Answer Notes Patient is a nonsmoker Alcohol Screen Question Answer Notes Did you have a drink containing alcohol in the p ast year? No Points 0 Interpretation Negative VITAL SIGNS BMI 38.74 kg/m2 05/13/2023 Blood pressure systolic 00 mm Hg 05/13/19 24 Blood pressure diastolic 00 mm Hg 024 Height 70 in 05/13/2023 Temperature 97.5 degrees Fahrenheit 05/13/19 24 Weight 270 lbs 05/13/2023 Encounters Encounter Location Date Provider Diagnosis [facility] [address] [place] [address] 05/13/2023 Steven Guan Crohns disease witho ut complication, unspecified gastrointestinal tract location K50.90 and Rectal bleeding K62.5 ASSESSMENTS Encounter Date Diagnosis Assessment Notes Treatment Notes Treatment Clinical Notes 05/13/2023 Crohns disease witho ut complication, unspecified gastrointestinal tract location (ICD-10 - K50.90) 05/13/2023 Rectal bleeding (ICD-10 - K62.5) Try an over the counter suppository for the hemorrhoids at bedtime if you have bleeding. You can try Preparation H or Anusol. PLAN OF TREATMENT Treatment Notes Assessment Notes Rectal bleeding Try an over the coun ter suppository for the hemorrhoids at bedtime if you have bleeding. You can try Preparation H or Anusol. Next Appt Details Follow Up: 2023, Reaso n: Provider Name:Steven Guan , 12/02/2023 10:20:00 AM, [address], [address], [place], [address], Progress Notes * Examination Category Sub-Category Detail Notes General Examination GENERAL APPEARANCE: pleasant , well nourished, well developed, in no acute distress HEAD: EYES: sclera non-icteric EARS: NOSE: THROAT: NECK/THYROID: no cervical lymphade nopathy, neck supple HEART: S1, S2 normal CHEST: LUNGS: clear to auscultatio n bilaterally ABDOMEN: normal bowel sounds, no guarding or rigidity, no guarding or rigidity, no masses palpable, soft, nontender, nondistended NEUROLOGIC: alert and oriented SKIN: nonjaundiced, no spi hansa angiomata EXTREMITIES: no edema PERIPHERAL PULSES: BACK: BREASTS: MUSCULOSKELETAL: MALE GENITOURINARY: LYMPH NODES: RECTAL EXAM: FEMALE GENITOURINARY: ORAL CAVITY: mucosa moist
--- OUTSIDE RECORDS SUMMARY | 2023-11-20 23:35 | XMS_ITS | Patient Health Record ---
Author Organization [facility] Address [address] [place] [address] Care Team Providers Care General Internal Medicine Doctor Name Role Phone MARIAH DSOUZA Primary Care Provider Steven Florence Unavailable [phone] ALLERGIES No Known Allergies REASON FOR REFERRAL [...] unspecified gastrointestinal tract location (K50.90) Active confirmed 06547555 Problem Crohn''s disease of large intestine without complication (K50.10) Active confirmed 1864687 Problem Rectal bleeding (K62.5) Active confirmed 98912895 Problem Diarrhea, unspecified type (R19.7) Active confirmed 13248319 Problem Crohn's disease of colon (K50.10) Active confirmed Crohn's disea se of colon (33650426) Problem Diverticulosis of large intestine without perforation or abscess without bleeding (K57.30) Active confirmed Diverticul ar disease of colon (683922518) VITAL SIGNS Temperature 97.5 degrees Fahrenheit 05/13/2023 Blood pressure diastolic 00 mm Hg 05/13/2023 Height 70 in 05/13/2023 Blood pressure systolic 00 mm Hg 05/13/2023 Weight 270 lbs 05/13/2023 BMI 38.74 kg/m2 05/13/2023 Encounters Encounter Location Date Provider Diagnosis [facility] [address] [place] [address] 12/29/2022 Steven Guan [facility] [address] [place] [address] 05/13/2023 Steven Guan Crohns disease witho ut complication, unspecified gastrointestinal tract location K50.90 and Rectal bleeding K62.5 [facility] [address] [place] [address] 12/29/2022 Steven Guan [facility] [address] [place] [address] 03/15/2023 Steven Guan [facility] [address] [place] [address] 04/30/2023 Steven Guan [facility] [address] [place] [phone] 05/10/2023 Steven Guan ASSESSMENTS Encounter Date Diagnosis [...] Name:Steven Guan , 12/02/2023 10:20:00 AM, [address], [address], [place], [address], Insurance Providers Payer Name Payer Address Payer Phone Subscriber Number Group Number Insured Name Patient Relationship to Insured Coverage Start Date Coverage End Date [place] OF [place] [address] [place] [address] [id number] SEDA BOND Self - patient is the insured [employer] [address] [place] [address] [id number] SEDA BOND Self - patient is the insured MEDICAL (GENERAL) HISTORY Medical History History ICD Code Denies AK,DM,CVA,Lung disease,renal dise ase Crohn's colitis diagnosed in [...] and there was no H. 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 Biopsies throughout the colon were negative for any colitis and dysplasia Surgical History Surgery Date(Month/Year) Cholecystectomy Back surgery Vein surgery of LE's 04/2018 and 05/2018
--- OUTSIDE RECORDS SUMMARY | 2023-11-20 23:35 | XMS_ITS ---
Author Organization [facility] Address [address] [place] [address] Care Team Providers Care Compressed Gases Tester Name Role Phone MARIAH DSOUZA Primary Care Provider Steven Florence [phone] REASON FOR VISIT [facility] records Encounters Encounter Location Date Provider Diagnosis [facility] [address] [place] [address] 04/30/2023 Steven Guan PLAN OF TREATMENT Next Appt Details Provider Name:Steven Guan , 12/02/2023 10:20:00 AM, [address], [address], [place], [address],
--- OUTSIDE RECORDS SUMMARY | 2023-11-20 23:35 | XMS_ITS ---
Author Organization [facility] Address [address] [place] [address] Care Team Providers Care Gmat Instructor Name Role Phone MARIAH DOSUZA Primary Care Provider Steven Florence [phone] Encounters Encounter Location Date Provider Diagnosis [facility] [address] [facility] [address] [facility] [address] [place] [address] 05/10/2023 Steven Guan PLAN OF TREATMENT Next Appt Details Provider Name:Steven Guan , 12/02/2023 10:20:00 AM, [address], [address], [place], [address],
== END 2023-11-18 09:05 | disposition home or self-care (01) ==
PROVIDERS: PCP Nurse Practitioner Family; Visit Provider Nurse Practitioner Family
DX: L03.115 Cellulitis of right lower limb (principal)
CPT/HCPCS: 99213

== ENCOUNTER 2023-11-23 08:51 | Outpatient (AMB) | payer MEDICARE, OTHER, SELFPAY ==
[2023-11-23 08:54] VITALS: BP 118/72; PULSE 72; O2SAT 98; BMI 38.7
--- NOTE | 2023-11-23 08:54 | AM.OFFVISMDC ---
Intake Vital Signs 11/23/23 08:54 Height 5 ft 10 in Weight 270 lb BMI 38.7 BP 118/72 Blood Pressure Location Lt brachial Position Sitting Pulse 72 Pulse Source Pulse Oximeter Pulse Oximetry (%) 98 Oxygen Delivery Method Room Air Intake Visit Reasons: SWV Intake Note: patient is here for medicare wellness visit Medical Records Director Required: No Accompanied by: Self / Same As Patient Allergies oatmeal Allergy (Unknown, Uncoded 11/18/23 08:16) hives Medication List - Last Reconciled 11/23/23 by CLARIBEL Godfrey aspirin 81 mg PO DAILY bupropion HCl XL 150 mg PO DAILY calcium 600 mg PO DAILY@1800 cephalexin 500 mg PO BID 7 days cholecalciferol (vitamin D3) 25 mcg PO DAILY@1800 clopidogrel 75 mg PO DAILY ferrous sulfate (Iron (ferrous sulfate)) 325 mg PO DAILY@1800 fluoxetine 80 mg PO DAILY metoprolol succinate ER mg PO multivitamin 1 tab PO DAILY@1800 [Probiotic 1 tab PO DAILY@1800] rosuvastatin 5 mg PO DAILY tamsulosin 0.8 mg (2 x 0.4 mg) PO DAILY 90 days torsemide 10 mg PO DAILY Do you need a note to return to daycare/school/sports/work: No HPI SWV HPI Details Pt is here for an SWV. Denies fever, chills, and dizziness. [place] of care Not filled out. PPP will be scanned in chart and copy will be given to pt. REPLACED BY [facility] Medical History Presence of Watchman left atrial appendage closure device RANULFO (obstructive sleep apnea) BPH (benign prostatic hyperplasia) New onset a-fib Foreign body of finger of right hand Left anterior fascicular block (LAFB) Iron deficiency Depression Vertebral compression fracture PLMD (periodic limb movement disorder) PVD (peripheral vascular disease) Dyslipidemia HTN (hypertension) Crohn's disease Venous insufficiency of both lower extremities Surgical History History of cholecystectomy Status post endovenous radiofrequency ablation (RFA) of saphenous vein Family History Father Cancer of prostate Mother Anxiety Sister Breast cancer Sister Nephritis Sister No problems noted. Sister No problems noted. Sister No problems noted. Daughter Substance use disorder Mental health disorder Daughter No problems noted. Daughter No problems noted. Brother No problems noted. Brother No problems noted. Brother Epilepsy Paternal Grandfather Substance use disorder Social History Housing: House Alcohol intake: never Patient Tobacco Use Status: Former Tobacco user Years Smoked: 50 years ago e-Cigarette/Vaping Use: Never Used Second Hand Smoke Exposure: No service: Yes Current occupational status: retired Cognitive needs: No Hearing needs: No Vision needs: No Questionnaire Medicare Wellness Checkup [age] What gender do you identify with?: male During the past 4 weeks, how much have you been bothered by emotional problems such as feeling anxious, depressed, irritable, sad or downhearted, and blue?: not at all During the past 4 weeks, has your physical & emotional health limited your social activities with family, friends, neighbors, or groups?: not at all During the past 4 weeks, how much bodily pain have you generally had?: mild pain During the past 4 weeks, was someone available to help you if you needed & wanted help?: yes, as much as I wanted During the past 4 weeks, what was the hardest physical activity you could do for at least 2 minutes?: moderate Can you get to places out of walking distance without help? (For eg., can you travel alone on buses, taxis or drive your car?): Yes Can you go shopping for groceries or clothes without someone's help?: Yes Can you prepare your own meals?: Yes Can you do your housework without help?: Yes Because of any health problems, do you need the help of another person with your personal care needs such as eating, bathing, dressing or getting around the house?: Yes Can you handle your own money without help?: Yes During the past 4 weeks, how would you rate your health in general?: fair During the past 4 weeks how have things been going for you?: pretty well Are you having difficulties driving your car?: no Do you always fasten your seat belt when you are in a car?: yes, usually During past 4 weeks, have you been bothered by the following: never: Falling or dizzy when standing up, Sexual problems?, Trouble eating well? and Problems using the telephone? and seldom: Teeth or denture problems? and Tiredness or fatigue? Have you fallen 2 or more times in the past year?: No Are you afraid of falling?: No Are you a smoker?: no During the past 4 weeks, how many drinks of wine, beer, or other alcoholic beverages did you have?: no alcohol at all Do you exercise for about 20 minutes 3 or more times a week?: no, I usually do not exercise this much Have you been given information to help with the following?: no: Hazards in your house that might hurt you? and no: Keeping track of your medications? How often do you have trouble taking medicines the way you have been told to take them?: sometimes I take medicine as prescribed How confident are you that you can control & manage most of your health problems?: very confident What is your race?: White Mini Mental State Exam (MMSE) Registration Name of 3 unrelated objects clearly and slowly, then ask patient to repeat all 3 of them. (1st repeat determines score. Make sure they can repeat all three): object 1, object 2 and object 3 Attention & Calculation (CHOOSE ONE) Spell WORLD backwards (DLROW): 5 letters Recall Ask patient to repeat the 3 items from question #3.: object 1, object 2 and object 3 Language Show patient a wristwatch & ask what it is. Repeat for pencil.: watch and pencil Ask the patient to repeat the phrase 'No ifs, ands, or buts' after you.: correct Ask the patient to 'take a piece of paper with their right hand' 'fold paper in half' 'place paper on floor': take paper in right hand, fold paper in half and place paper on floor Print the sentence 'CLOSE YOUR EYES' on a piece. If patient actually closes eyes then score.: followed written direction Give patient a blank piece of paper & ask to write a sentence. Score if it contains a noun & verb.: sentence contains subject and verb Ask patient to copy figure of intersecting pentagons exactly. Score if all 10 angles & 2 intersects are included.: all 10 angles present & 2 are intersected Score Score: 20 Activity of Daily Living Bathing - sponge bath, tub bath or shower: receives no assistance (gets in/out by self, if usual bathing means Dressing - getting clothes from closets & drawers, including inner/outer garments & fasteners.: gets clothes & gets completely dressed without help Toileting - going to the 'toilet room' for urine/bowel elimination & cleaning self/arranging clothes: goes to toilet room, cleans self, arranges clothes without help Transfer: moves in & out of bed and chair without help (may use support object) Continence: controls urination/bowel movements completely by self Feeding: feeds self without help Total Score: 0 Information obtained from: patient Using telephone: independent Traveling: independent Shopping: independent Preparing meals: independent Housework: independent Taking medicine: independent Managing money: independent PHQ-9 Over the last 2 weeks, how often have you been bothered by any of the following problems? 50087 - PHQ-9 Billing: Patient declined-do not bill Source: Developed by Drs. Steven Kaplan, Alana Day, Perry Elmore and colleagues, with an educational yehuda from [employer]. Review of Systems Const Reports as per HPI Physical Exam Vital Signs: Last Vital Signs Pulse 72 11/23/23 08:54 BP 118/72 11/23/23 08:54 Pulse Ox 98 11/23/23 08:54 Oxygen Delivery Method Room Air 11/23/23 08:54 BMI result Body Mass Index 38.7 Const General: cooperative Nutritional Appearance: obese Orientation/consciousness: patient oriented x3 Neuro Other: - romberg, can tandem walk, can walk and turn, can rise from sitting to standing, passed whisper test General: patient oriented x3 Psych Appearance: grossly normal Mental Status: mental status grossly normal Speech and movement: Normal speech and movement present Affect: normal affect Attitude: cooperative Thought process: Normal thought process present Thought content: Normal thought content present Insight: Good insight present (Psych) Judgement: Good judgement present (Psych) Assessment & Plan Assessment & Plan (1) Encounter for subsequent annual wellness visit (AWV) in Medicare patient: Code(s): Z00.00 - Encounter for general adult medical examination without abnormal findings Plan: pt follows up with cardiology, GI, psych. denies any SI or HI. Refuses PSA today, denies any urinary symptoms. Plan The patient agreed to the use of a medical coding auditor for this encounter. Scribed for Emile Chamorro, EDUCATION ANALYST- by Jennie Martin medical coding auditor, on 11/23/2023 at 09:10 EST. Orders: Orders TSH reflex Free T4 Today I10 - Essential (primary) hypertension Complete Blood Count Auto Diff Today I10 - Essential (primary) hypertension Comprehensive [place]. Panel Fast Today I10 - Essential (primary) hypertension UA CC w/rflx Micro + Cult Today I10 - Essential (primary) hypertension Lipid Panel Today I10 - Essential (primary) hypertension Coding Level of Care Code Medicare Subsequent (G0439) Diagnoses Encounter for subsequent annual wellness visit (AWV) in Medicare patient Z00.00 CPT Codes Advance Care Planning - Time spent: 1-15 minutes, on File ([id number]) Advance Care Planning Forms completed: Health Care Proxy (already scanned), MOLST (already scanned) and Living will (pt reports this was done already) Time spent: 1-15 minutes, on File Actual minutes spent: 15
== END 2023-11-23 10:08 | disposition home or self-care (01) ==
PROVIDERS: PCP Nurse Practitioner Family; Visit Provider Nurse Practitioner Family
DX: Z00.00 Encounter for general adult medical examination without abnormal findings (principal)
CPT/HCPCS: 1123F; G0439

== ENCOUNTER 2023-12-14 09:26 | Outpatient (AMB) | payer MEDICARE, OTHER, SELFPAY ==
[2023-12-14 09:27] VITALS: BP 118/70; BMI 38.7
--- NOTE | 2023-12-14 09:27 | A.OFFVIS_ITS ---
Vital Signs 12/14/23 09:27 Height 5 ft 10 in Weight 270 lb BMI 38.7 BP 118/70 Blood Pressure Location Rt brachial Position Sitting Intake Visit Reasons: Follow up Intake Note: Patient presents for follow up. Allergies oatmeal Allergy (Unknown, Uncoded 12/14/23 09:36) hives HPI Comments Details: 73-yr-old male presents for follow-up visit of sleep apnea. Pt reports he was dx'd w/ a-fib about a underwent Watchman implant and was switched to Plavix from Warfarin- goal is to come off ASA and be on long-term ASA tx. F/b cardiology in [place]. Pt is using his CPAP consistently. He states that he needs to replace his water tank. He had been using a SoClean device but has not had a replacement for the water tank that worked with the SoClean device, and now the tank is soiled and in need of replacement. Advised that [facility] no longer recommends using SoClean device w/ his CPAP. He will convert back to suing his regular [facility] water tank and cleaning supplies by hand. [place] [id number] Email: [email or web address] Compliance Report Usage 11/14/2023 - 12/13/2023 Usage days 30/30 days (100%) >= 4 hours 29 days (97%) < 4 hours 1 days (3%) Usage hours 264 hours 45 minutes Average usage (total days) 8 hours 50 minutes Average usage (days used) 8 hours 50 minutes Median usage (days used) 8 hours 59 minutes Total used hours (value since last reset - 12/13/2023) 14,476 hours AirSense 10 AutoSet Serial number [id number] Mode CPAP Set pressure 9 cmH2O EPR Fulltime EPR level 3 Therapy Leaks - L/min Median: 1.0 95th percentile: 21.6 Maximum: 55.6 Events per hour AI: 1.3 HI: 0.4 AHI: 1.7 Apnea Index Central: 0.0 Obstructive: 0.8 Unknown: 0.5 RERA Index 0.2 PFSH Medical History Presence of Watchman left atrial appendage closure device RANULFO (obstructive sleep apnea) BPH (benign prostatic hyperplasia) New onset a-fib Foreign body of finger of right hand Left anterior fascicular block (LAFB) Iron deficiency Depression Vertebral compression fracture PLMD (periodic limb movement disorder) PVD (peripheral vascular disease) Dyslipidemia HTN (hypertension) Crohn's disease Venous insufficiency of both lower extremities Surgical History History of cholecystectomy Status post endovenous radiofrequency ablation (RFA) of saphenous vein Family History Father Cancer of prostate Mother Anxiety Sister Breast cancer Sister Nephritis Sister No problems noted. Sister No problems noted. Sister No problems noted. Daughter Substance use disorder Mental health disorder Daughter No problems noted. Daughter No problems noted. Brother No problems noted. Brother No problems noted. Brother Epilepsy Paternal Grandfather Substance use disorder Social History Housing: House Alcohol intake: never Patient Tobacco Use Status: Former Tobacco user Years Smoked: 50 years ago e-Cigarette/Vaping Use: Never Used Second Hand Smoke Exposure: No service: Yes Current occupational status: retired Cognitive needs: No Hearing needs: No Vision needs: No Review of Systems Const All systems reviewed & are unremarkable except as noted in HPI and below Physical Exam Vital Signs: Last Vital Signs BP 118/70 12/14/23 09:27 BMI result Body Mass Index 38.7 Const General: no acute distress Orientation/consciousness: patient oriented x3 HEENT Other: Mallampati stage Resp Effort & Inspection: normal respiratory effort and able to speak in complete sentences Neuro General: patient oriented x3 Psych Mental Status: mental status grossly normal Speech and movement: Clear speech present Attitude: cooperative Results Reviewed Results Reviewed: PAP compliance report- see HPI Assessment & Plan Assessment & Plan (1) RANULFO (obstructive sleep apnea): Code(s): G47.33 - Obstructive sleep apnea (adult) (pediatric) Category: Medical (2) A-fib: Code(s): I48.91 - Unspecified atrial fibrillation Category: Medical Plan Continue CPAP 9cmH2O nightly > 4 hours, as pt has had good clinical effect with use with good reduction in residual AHI. Discussed the importance of treating RANULFO in setting of A-fib. Pt will stop using SoClean device. Clean CPAP machine and supplies routinely. Change CPAP supplies routinely. Pt to contact us or respiratory company with any questions or concerns. Pt to follow-up in 12 months or sooner prn. Coding Level of Care Code Est Pt Level 3 (27830) Diagnoses RANULFO (obstructive sleep apnea) G47.33 A-fib I48.91
== END 2023-12-14 10:22 | disposition home or self-care (01) ==
PROVIDERS: PCP Nurse Practitioner Family; Visit Provider Nurse Practitioner Family
DX: G47.33 Obstructive sleep apnea (adult) (pediatric) (principal); I48.91 Unspecified atrial fibrillation
CPT/HCPCS: 99213

== ENCOUNTER → 2023-12-14 09:26 | Outpatient (BNVA) | payer MEDICARE, OTHER, SELFPAY | PROVIDERS: PCP Nurse Practitioner Family; Visit Provider Nurse Practitioner Family | DX: G47.33 Obstructive sleep apnea (adult) (pediatric) (principal); I48.91 Unspecified atrial fibrillation; Z79.02 Long term (current) use of antithrombotics/antiplatelets; Z99.89 Dependence on other enabling machines and devices | CPT/HCPCS: 99212 ==

== ENCOUNTER 2023-12-30 10:26 | Outpatient (AMB) | payer MEDICARE, OTHER, SELFPAY ==
--- OUTSIDE RECORDS SUMMARY | 2023-12-30 10:31 | XMS_ITS ---
Author Organization [facility] Address [address] [place] [id number] Care Team Providers Care Plate Washer Name Role Phone MARIAH DSOUZA Primary Care Provider Steven Florence Unavailable [phone] ALLERGIES No Known Allergies REASON FOR VISIT Patient presents today for crohn's MEDICATIONS Medication SIG (Take, Route, Frequency, Duration) Notes Start Date End Date Status Clopidogrel Bisulfate 75 MG TAKE 1 TABLET BY MOUTH EVERY DAY Oral for 30 Active Lialda 1.2 GM 4 Orally Once a day for 90 days 03/17/2023 Active Metoprolol Succinate ER 25 MG TAKE 1 TABLET BY MOUTH ONCE DAILY IN THE MORNING . DO NOT CRUSH OR CHEW Diagnosis Unavailable Oral for 30 Active rOPINIRole HCl 0.25 MG 1 tablet Orally Three times a day Active Multi Vitamin/Minerals - 1 Orally QD Active Probiotic 250 MG 1 capsule Orally once a day Active Iron 325 (65 Fe) MG 1 tablet Orally Once a day Active FLUoxetine HCl 40 MG 2 capsule Orally Once a day Active Tamsulosin HCl 0.4 MG 1 capsule Orally Once a day Active Mesalamine 1.2 GM 4 Orally Once a day Starting 05/20/2022 Active buPROPion HCl ER (XL) 150 MG 1 tablet in the morning Orally Once a day Active SOCIAL HISTORY Tobacco Use: Social History [...] Points 0 Interpretation Negative VITAL SIGNS BMI 38.31 kg/m2 12/02/2023 Blood pressure systolic 00 mm Hg 12/02/19 24 Blood pressure diastolic 00 mm Hg 024 Height 70 in 12/02/2023 Weight 267 lbs 12/02/2023 Encounters Encounter Location Date Provider Diagnosis [facility] [address] [place] [address] 12/02/2023 Steven Guan Crohns disease witho ut complication, unspecified gastrointestinal tract location K50.90 ASSESSMENTS Encounter Date Diagnosis Assessment Notes Treatment Notes Treatment Clinical Notes 12/02/2023 Crohns disease witho ut complication, unspecified gastrointestinal tract location (ICD-10 - K50.90) PLAN OF TREATMENT Medication Medication Name Sig Start Date Stop Date Notes Mesalamine 1.2 GM 4 Orally Once a day Starting 05/20/2022 Next Appt Details Follow Up: 1 Year, Reason: Provider Name:Steven Guan , 11/30/2024 09:20:00 AM, [address], [address], [place], [address], Progress Notes * Examination Category Sub-Category Detail [...] SKIN: nonjaundiced, no spi hansa angiomata EXTREMITIES: PERIPHERAL PULSES: BACK: BREASTS: MUSCULOSKELETAL: MALE GENITOURINARY: LYMPH NODES: RECTAL EXAM: FEMALE GENITOURINARY: ORAL CAVITY: mucosa moist
--- OUTSIDE RECORDS SUMMARY | 2023-12-30 10:31 | XMS_ITS ---
Author Organization [facility] Address [address] [place] [address] Care Team Providers Care Ged Tutor Name Role Phone MARIAH DSOUZA Primary Care Provider Steven Florence [phone] Encounters Encounter Location Date Provider Diagnosis [facility] [address] [place] [address] 05/10/2023 Steven Guan PLAN OF TREATMENT Next Appt Details Provider Name:Steven Guan , 11/30/2024 09:20:00 AM, [address], [address], [place], [address],
--- OUTSIDE RECORDS SUMMARY | 2023-12-30 10:31 | XMS_ITS | Continuity of Care Document ---
Author Organization [facility] ter Address [address] [place] [id number]- Care Team Providers Care Police Patrol Officer Name Role Phone Not on Staff, PCP Primary Care Physician Unavail able Encounter [facility] Date(s): 12/06/23 - 12/06/[address] [address]- Discharge Disposition: A-D/C Home Attending Physician: Kee Howard MD Admitting Physician: Kee Howard MD Referring Physician: Steve Escamilla MD Allergies, Adverse Reactions, Alerts Substance Reaction Severity Status Lipitor muscle aches Moderate Active Colloidal Oatmeal skin eruptions Moderate Active Medications aspirin 81 mg oral delayed release tablet = 81 mg, By Mouth, Daily, # 30 tablet, 3 Refills, Maintenance, 10/21/23 9:25:00 EDT, EC Tablet, [facility], Partial fill upon patient request [...] 10/21/23 9:25:00 EDT, Route to Pharmacy Electronically, [facility], Partial fill upon patient request [...] CAPSULE BY MOUTH TWICE DAILY Start Date: 11/19/23 Status: Ordered mesalamine 1.2 g oral delayed release tablet 4 tablet = 4.8 Gm, By Mouth, Daily in AM, 0 Refills, Maintenance, 08/19/23 10:00:00 EDT Start Date: 08/19/23 Status: Ordered Metoprolol Succinate ER 25 mg oral tablet, extended release 1 tablet = 25 mg, By Mouth, Daily, # 90 tablet, 0 Refills, Maintenance, 11/19/23 15:10:00 EDT, ER Tablet, Partial fill upon patient request if the prescription is for a schedule II opioid drug. Start Date: 11/19/23 Status: Ordered Multivitamin 1 tablet, By Mouth, Daily, Maintenance, 10/18/23 10:52:00 EDT Start Date: 10/18/23 Status: Ordered rosuvastatin 5 mg oral tablet 1 tablet = 5 mg, By Mouth, Daily at bedtime, # 90 tablet, 0 Refills, Maintenance, 11/19/23 15:10:00EDT, Tablet, Partial fill upon patient request if the prescription is for a schedule II opioid drug. Start Date: 11/19/23 Status: Ordered tamsulosin 0.4 mg oral capsule TAKE 2 CAPSULES BY MOUTH DAILY Start Date: 11/19/23 Status: Ordered torsemide 10 mg oral tablet 1 tablet = 10 mg, By Mouth, Daily, # 90 tablet, 0 Refills, Maintenance, 11/19/23 15:09:00 EDT, Tablet, Partial fill upon patient request if the prescription is for a schedule II opioid drug. Start Date: 11/19/23 Status: Ordered Vitamin D3 2000 intl units oral capsule 1 capsule = 50 mcg, By Mouth, Daily, 0 Refills, Maintenance, 08/19/23 9:59:00 EDT, Capsule Start Date: 08/19/23 Status: Ordered Problem List Condition Confirmation Course Effective Dates Status Health St atus Informant Atrial fibrillation, chronic Confirmed Active Obese class II Confirmed Active Vital Signs Most recent to oldest [Reference Range]: 1 2 3 Height 177.8 cm (12/06/23 10:37 AM) 177.8 cm (12/06/23 10:25 AM) Weight 119 kg (12/06/23 10:37 AM) 119 kg (12/06/23 10:25 AM) Oxygen Saturation [94-100 %] 96 % (12/06/23 1:10 PM) 96 % (12/06/23 1:07 PM) 97 % (12/06/23 1:04 PM) Pulse Rate [55-90 bpm] 81 bpm (12/06/23 9:45 AM) Blood Pressure [90-138/55-84 mm Hg] 116/75mm Hg (12/06/23 1:10 PM) 115/74mm Hg (12/06/23 1:07 PM) 117/68mm Hg (12/06/23 1:04 PM) Respiratory Rate [16-30 br/min] 17 br/min (12/06/23 1:10 PM) 16 br/min (12/06/23 1:07 PM) 17 br/min (12/06/23 1:04 PM) Temperature [96.8-100.4 DegF] 98 DegF (12/06/23 9:45 AM) Mode of Delivery (Oxygen) Room air (12/06/23 1:10 PM) Room air (12/06/23 1:07 PM) Room air (12/06/23 1:04 PM) Blood pressure sites Arm, left (12/06/23 1:10 PM) Arm, left (12/06/23 1:07 PM) Arm, left (12/06/23 1:04 PM) Temperature Route Oral (12/06/23 9:45 AM) Dry Weight 119 kg (12/06/23 10:25 AM) Social History Social History Type Response Smoking Status Never (less than 100 in lifetime) entered on: 08/19/23 Sex US Heart Transesophageal * Event Display: Trans-esophageal Echocardiogram Authored Date: [id number] Transesophageal Echocardiography Report (ELIANA) Patient Demographics Patient Name SEDA BOND Date of Study 12/06/2023 Corporate Gender Male Facility Race Ethnicity Date of 1950 Height: 69.69 inches Age 73 year(s) Weight: 262.35 pounds Accession Number [id number] BSA: 2.33 m2 Room Number [id number] BMI: 37.98 kg/m2 Referring Physician Steve Escamilla MD Interpreting Physician Kee Howard MD Embedded Software Developer Indications Atrial fibrillation. Additional Indications:S/P Watchman Study Data Type of Study ELIANA procedure:ELIANA with Doppler and Colorflow. Procedure Information:The procedure, including risks and benefits, was explained to the patient and informed consent was obtained. Time out was performed pre-procedure. The transesophageal probe was inserted by the attending marketing programs specialist. There were no complications. Study Date12/06/2023 Start Time: 12:24 PM Study Location: CARE UNIT Study Status: ELIANA Suite Patient Status: Routine Technical Quality: Good Blood Pressure:123/77 mmHg EKG: Atrial fibrillation HR: 86 bpm ELIANA Performed By: Kee Howard MD Type of Anesthesia: Anesthesia administered by anesthesiologist. Allergies - Aspirin. - Lipitor. 2D Measurements AO Root Dimension: 3.52 cm Doppler Measurements AV Peak Velocity: 98.7 cm/s AV Peak Gradient: 3.9 mmHg LVOT Peak Velocity: 53.5 cm/s LVOT VTI9.1 cm Cardiac Anatomy Left Ventricle/Interventricular Septum The left ventricle appears foreshortened. There is also pckq-zu-ucrh variation in wall thickening due to atrial fibrillation, impairing assessment of LVEF. Left Atrium/Interatrial Septum A 31 mm Watchman FLX is visualized in the left atrial appendage and appears well-seated without evidence of thrombus or significant peridevice leak. Iatrogenic ASD visualized with non-restrictive left to right flow. Aortic Valve The aortic valve is trileaflet. The aortic valve appears mildly thickened. There is trace aortic regurgitation. There is no aortic stenosis. Mitral Valve There is apical tethering of both leaflets of the mitral valve. There is mild functional mitral regurgitation. Aorta There is mild plaque in the descending aorta. There is minimal intimal thickening in the aortic arch. The aortic root is normal in size when indexed for body surface area (BSA). Right Ventricle The right ventricle is normal in size and function. Right Atrium There is no mass or thrombus in the right atrium. Pulmonic Valve The pulmonic valve is poorly visualized. There is trace pulmonic regurgitation. Tricuspid Valve There is trace to mild tricuspid valve regurgitation. Pumonary Artery An accurate pulmonary artery pressure could not be obtained. Venous Structures There is systolic blunting of pulmonary venous flow. Pericardium/Extracardiac There is a small pericardial effusion near the right and left ventricular apex. Summary A 31 mm Watchman FLX is visualized in the left atrial appendage and appears well-seated without evidence of thrombus or significant peridevice leak. Iatrogenic ASD visualized with non-restrictive left to right flow. There is apical tethering of both leaflets of the mitral valve. There is mild functional mitral regurgitation. The left ventricle appears foreshortened. There is also humo-ch-cpgn variation in wall thickening due to atrial fibrillation, impairing assessment of LVEF. The right ventricle is normal in size and function. An accurate pulmonary artery pressure could not be obtained. There is a small pericardial effusion near the right and left ventricular apex. Comparison Comparison is made to the ELIANA studies of October 20, 2023. Patient is now s/p Watchman implant Signature * Event Display: Trans-esophageal Echocardiogram Authored Date: Hospital Progress note * Cricket Hill RN: PERFORM, SIGN, VERIFY, MODIFY, SIGN Event Display: Progress Note Hospital Authored Date: Patient: SEDA BOND Age: 73 years Sex: Male : 1950 Associated Diagnoses: None Author: Cricket Hill RN Findings Narrative/Incidental Pt A/Ox4, NPO since midnight, daystay assessment home med review, and pre procedure checklist charted in CIS, 20g IV placed, vitals stable.. * Cricket Hill RN: PERFORM Event Display: Progress Note Hospital Authored Date: Pt returned to unit via stretcher, A/Ox4, vitals stable, denies CP/SOB, +gaga reflex, tolerating POdiet, ambulating to bathroom with steady gait, voiding CYU, able to teach back d.c instructions, wheeled off unit for d.c home. Note * Cricket Hill RN: PERFORM Event Display: Discharge/Transfer Note Hospital Authored Date: [id number] Nursing Discharge Note Entered On: 12/06/2023 14:06 EDT Performed On: 12/06/2023 14:06 EDT by Cricket Hill RN Nursing Discharge Note 2 Discharge Time : 12/06/2023 14:06 EDT Discharge Level of Care at Discharge : Home/Shelter/Foster Care Patient Left Unit Via : Wheelchair Patient Accompanied Off Unit with : Responsible adult DC Instructions Provided & Signed by Pt : Yes Patient Understands D/C Instructions : Yes Patient Instructions Discharge Signed : Yes Did Pt have Specialty Bed or Wound Vac : No Cricket Hill RN - 12/06/2023 14:06 EDT Patient Care team information Care Team Personnel Name: Subha Singh RN Position: S RN Member Role: Primary Care Nurse Name: Not on Staff, PCP Position: S Physician (General Medicine) Member Role: PCP Name: Cricket Hill RN Position: S RN Member Role: Primary Care Nurse Name: Kee Muñiz RN Position: S RN Member Role: Primary Care Nurse Care Team Related Persons Name: SHERRON BOND Address: [address] [place] [address] Name: ANGELES ARRIETA Address: home [address] [place] [address]
--- OUTSIDE RECORDS SUMMARY | 2023-12-30 10:31 | XMS_ITS ---
Author Organization [facility] Address [address] [place] [phone] Care Team Providers Care Supervisor Farm Equipment Maintenance Name Role Phone MARIAH DSOUZA Primary Care Provider Steven Florence Unavailable [phone] ALLERGIES No Known Allergies REASON FOR VISIT [...] 05/13/2023 Encounters Encounter Location Date Provider Diagnosis [facility] [address] [place] [address] 05/13/2023 Steven Guan Crohns disease witho ut [...] 2023, Reaso n: Provider Name:Steven Guan , 11/30/2024 09:20:00 AM, [address], [address], [place], [address], Progress Notes * Examination Category Sub-Category Detail [...]
--- OUTSIDE RECORDS SUMMARY | 2023-12-30 10:32 | XMS_ITS | Patient Health Record ---
Author Organization [facility] Address [address] [place] [address] Care Team Providers Care Burlap Spreader Name Role Phone MARIAH DSOUZA Primary Care Provider Steven Florence Unavailable [phone] ALLERGIES No Known Allergies REASON FOR REFERRAL [...] the morning Orally Once a day Active IMMUNIZATIONS Vaccine Route Administration [...] unspecified gastrointestinal tract location (K50.90) Active confirmed 46666377 Problem Crohn''s disease of large intestine without complication (K50.10) Active confirmed 5823596 Problem Rectal bleeding (K62.5) Active confirmed 09858341 Problem Diarrhea, unspecified type (R19.7) Active confirmed 70683019 Problem Crohn's disease of colon (K50.10) Active confirmed Crohn's disea se of colon (03068990) Problem Diverticulosis of large intestine without perforation or abscess without bleeding (K57.30) Active confirmed Diverticul ar disease of colon (367381264) VITAL SIGNS Temperature 97.5 degrees Fahrenheit 05/13/2023 Blood pressure diastolic 00 mm Hg 12/02/2023 Height 70 in 12/02/2023 Blood pressure systolic 00 mm Hg 12/02/2023 Weight 267 lbs 12/02/2023 BMI 38.31 kg/m2 12/02/2023 Encounters Encounter Location Date Provider Diagnosis [facility] [address] [place] [phone] 12/29/2022 Steven Guan [facility] [address] [place] [address] 05/13/2023 Steven Guan Crohns disease witho ut complication, unspecified gastrointestinal tract location K50.90 and Rectal bleeding K62.5 [facility] [address] [place] [address] 12/02/2023 Steven Guan Crohns disease witho ut complication, unspecified gastrointestinal tract location K50.90 [facility] [address] [place] [address] 12/29/2022 Steven Guan [facility] [address] [place] [address] 03/15/2023 Steven Guan [facility] [address] [place] [address] 04/30/2023 Steven Guan [facility] [address] [place] [address] 05/10/2023 Steven Guan ASSESSMENTS Encounter Date Diagnosis Assessment Notes Treatment Notes Treatment Clinical Notes 05/13/2023 Rectal bleeding (ICD-10 - K62.5) Try an over the counter suppository for the hemorrhoids at bedtime if you have bleeding. You can try Preparation H or Anusol. 05/13/2023 Crohns disease witho ut complication, unspecified gastrointestinal tract location (ICD-10 - K50.90) 12/02/2023 Crohns disease witho ut complication, unspecified gastrointestinal tract location (ICD-10 - K50.90) PLAN OF TREATMENT Pending Test Test Name Order Date LIVER PROFILE 05/19/2022 CRP 05/19/2022 CBC w DIFF 05/19/2022 SED RATE (ESR) 05/19/2022 STOOL WBC 05/19/2022 C DIFFICILE RFLX PCR 05/19/2022 Future Test Test Name Order Date COLONOSCOPY 05/19/2022 Next Appt Details Provider Name:Steven Guan , 11/30/2024 09:20:00 AM, [address] [place] [address], [address], [place], [address], Insurance Providers Payer Name Payer Address Payer Phone Subscriber Number Group Number Insured Name Patient Relationship to Insured Coverage Start Date Coverage End Date MEDICARE OF [place] [address] [place] [address] [id number] RONDA, SEDA Self - patient is the insured [employer] [address] [place] [phone] [id number] SEDA BOND Self - patient is the insured MEDICAL (GENERAL) HISTORY Medical History History ICD Code Denies [place],DM,CVA,Lung disease,renal dise ase Crohn's colitis diagnosed in 2012--seen by Dr. Hurtado in [place]--- he had a negative colonoscopy in 2011, [...] and there was no H. pylori Afib- talent acquisition consultant is Dr. Major in [place], [place] Colonoscopy in 05/2022 was ne gative for active Crohn's and polyps; there was no perianal disease, internal hemorrhoids were noted. Biopsies throughout the colon were negative for any colitis and dysplasia Watchman procedure placed in 08/2023 at [facility]--Coumadin was stopped and he was started on Plavix, along with his aspirin. He is scheduled for a ELIANA on 12/16/2023 at [facility] Surgical History Surgery Date(Month/Year) Cholecystectomy Back surgery Vein surgery of LE's 04/2018 and 05/2018
--- OUTSIDE RECORDS SUMMARY | 2023-12-30 10:32 | XMS_ITS ---
Author Organization [facility] Address [address] [phone] Care Team Providers Care Electronic Parts Designer Name Role Phone MARIAH DSOUZA Primary Care Provider SAADIA Gibbons Unavailable [phone] Allergies No Known Allergies REASON FOR VISIT F/U PT HAS NOT BEEN HERE IN 3 YEARS, DOING WELL OVERALL - SOMETIMES THERE IS A WHITE PUSS LIKE THING IN HIS EYES THAT BOTHERS HIM AND HE HAS TO ROLL HIS EYES AROUND TO FIX IT AND MAKE IT GO AWAY Medications Medication SIG (Take, Route, Frequency, Duration) Notes Start Date End Date Status FLUoxetine HCl 40 MG Oral for 90 Active Tamsulosin HCl 0.4 MG Oral for 90 Active Warfarin Sodium 5 MG Oral for 90 Active Torsemide 10 MG Oral for 90 Ac tive buPROPion HCl ER (XL) 300 MG TAKE 1 TABLET BY MOUTH ONCE DAILY Oral for 90 Active Doxycycline Hyclate 100 MG Oral for 1 Active Metoprolol Succinate ER 25 MG TAKE 1 TABLET BY MOUTH ONCE DAILY IN THE MORNING . 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) Active confirmed Encounters Encounter Location Date Provider Diagnosis [facility] [address] [place] [phone] 03/08/2023 emir Mcpherson ateral H11.153 ; Age-related nuclear cataract, bilateral H25.13 and Nonexudative age-related macular degeneration, bilateral, early dry stage H35.3131 Assessments Encounter Date Diagnosis (ICD Code) Assessment Notes Treatment Notes Treatment Clinical Notes 03/08/2023 Pinguecula, bilateral (ICD-10 - H11.153) 03/08/2023 Age-related nuclear cataract, bilateral (ICD-10 - H25.13) 03/08/2023 Nonexudative age-related macular degeneration, bilateral, early dry stage (ICD-10 - H35.3131) 03/08/2023 Other physiologic cupping - oct shows healthy nerve PINGUCULUM- ART TEARS DUREZOL Plan Of Treatment Treatment Notes Assessment Notes Other physiologic cupping - oct shows healthy nerve PINGUCULUM- ART TEARS DUREZOL Next Appt Details Follow Up: 1 Year, Reason: Provider Name:SAADIA MARTINS, 11:00:00 AM, [address] [facility], [address], [place], [place], [phone], Progress Notes * Examination Category Sub-Category Detail Notes *Ophthalmology CONJUNCTIVA: clear PUPILS: equally round and re active no afferent defect FUNDI: optic disc C/D 0.35- 0.4 OU , macula normal vessels normal , retina flat no holes or tears PVD OD OS EXTRAOCULAR MOVEMENT: good range of mike on bilaterally CONFRONTATION VISUAL FIELD (CVF): full t o confrontation CORNEA: clear LENS: 1-2+ NS OU IRIS: within normal limits ANTERIOR CHAMBER: D/Q LIDS AND LASHES: within normal limits
--- OUTSIDE RECORDS SUMMARY | 2023-12-30 10:32 | XMS_ITS | Patient Health Record ---
Author Organization [facility] Address [address] [phone] Care Team Providers Care Garnishment Specialist Name Role Phone MARIAH DSOUZA Primary Care Provider SAADIA Gibbons Unavailable [phone] Allergies No Known Allergies Reason For Referral No Information Medications Medication SIG (Take, Route, Frequency, Duration) Notes Start Date End Date Status Atorvastatin Calcium Active Wellbutrin Active Metoprolol Succinate ER 25 MG TAKE 1 TABLET BY MOUTH ONCE DAILY IN THE MORNING . DO NOT CRUSH OR CHEW Oral for 30 Active Flomax Active FLUoxetine HCl 40 MG Oral for 90 Active Mesalamine 800 MG 2 tablets Orally Twi ce a day Active Warfarin Sodium 5 MG Oral for 90 Active Probiotic & Acidophilus Ex St Active PROzac Active buPROPion HCl ER (XL) 300 MG TAKE 1 TABLET BY MOUTH ONCE DAILY Oral for 90 Active Doxycycline Hyclate 100 MG Oral for 1 Active Rosuvastatin Calcium 5 MG Oral for 90 Active Tamsulosin HCl 0.4 MG Oral for 90 Active Torsemide 10 MG Oral for 90 Ac tive Problems Problem Type SNOMED Code ICD Code Onset Dates Problem Status W/U Status Risk Notes Problem Pinguecula (55143956) Pinguecula, bilateral (H11.153) Active confirmed Problem Nuclear senile cataract (311280306) Age-related nuclear cataract, bilateral (H25.13) Active confirmed Problem Nonexudative age-related macular degeneration (195403765) Nonexudative age-related macular degeneration, bilateral, 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) Active confirmed Encounters Encounter Location Date Provider [facility] [address] [place] [phone] 03/08/2023 SAADIA MARTINS Pinguecula, emir ateral H11.153 ; Age-related nuclear cataract, bilateral H25.13 and Nonexudative age-related macular degeneration, bilateral, early dry stage H35.3131 [facility] [address] [place], [place] [phone] 09/08/2023 SAADIA MARTINS Pinguecumike, emir ateral H11.153 ; Age-related nuclear cataract, bilateral H25.13 and Nonexudative age-related macular degeneration, bilateral, early dry stage H35.3131 Assessments Encounter Date Diagnosis (ICD Code) Assessment Notes Treatment Notes Treatment Clinical Notes 03/08/2023 Pinguecula, bilateral (ICD-10 - H11.153) 03/08/2023 Age-related nuclear cataract, bilateral (ICD-10 - H25.13) 09/08/2023 Pinguecula, bilateral (ICD-10 - H11.153) 09/08/2023 Age-related nuclear cataract, bilateral (ICD-10 - H25.13) 03/08/2023 Nonexudative age-related macular degeneration, bilateral, early dry stage (ICD-10 - H35.3131) 09/08/2023 Nonexudative age-related macular degeneration, bilateral, early dry stage (ICD-10 - H35.3131) 03/08/2023 Other physiologic cupping - oct shows healthy nerve PINGUCULUM- ART TEARS DUREZOL 09/08/2023 Other physiologic cupping - oct shows healthy nerve PINGUCULUM- ART TEARS DUREZOL Plan Of Treatment Next Appt Details Provider Name:SAADIA MARTINS, 11:00:00 AM, [address] [place] [address], [place], [place], [phone], Insurance Providers Payer Name Payer Address Payer Phone Subscriber Number Group Number Insured Name Patient Relationship to Insured Coverage Start Date Coverage End Date Medicare [address] [place], [place] [id number] Jonah Bond Self - patient is the insured [employer] Medicare Enhanced [address] [place], [place] [id number] VarunJonah Self - patient is the insured Medical (General) History Medical History History ICD Code BPH COLITIS CROHN'S DISEASE 2013 DR CERVANTES IRREGULAR HEARTBEAT - ON BLOOD THINNERS Surgical History Surgery Date(Month/Year) CHOLECYSTECTOMY Hospitalization History Reason Date(Month/Year) PALPATATIONS DR HIGH 04/2019
--- OUTSIDE RECORDS SUMMARY | 2023-12-30 10:32 | XMS_ITS ---
[facility] Address [address] [id number] Care Team Providers Care Artificial Pearl Maker Name Role Phone PATRICIOJENNIFERMARIAH Primary Care Provider SAADIA Gibbons Unavailable [phone] Allergies No Known Allergies REASON FOR VISIT 6 mo F/U VISIT FOR ARMD - PT USING AMSLER GRID - NOTICING NO CHANGES FROM LAST VISIT Medications Medication SIG (Take, Route, Frequency, Duration) Notes Start Date End Date Status Flomax Active FLUoxetine HCl 40 MG Oral for 90 Active Mesalamine 800 MG 2 tablets Orally Twi ce a day Active PROzac Active buPROPion HCl ER (XL) 300 MG TAKE 1 TABLET BY MOUTH ONCE DAILY Oral for 90 Active Warfarin Sodium 5 MG Oral for 90 Active Doxycycline Hyclate 100 MG Oral for 1 Active Rosuvastatin Calcium 5 MG Oral for 90 Active Tamsulosin HCl 0.4 MG Oral for 90 Active Torsemide 10 MG Oral for 90 Ac tive Atorvastatin Calcium Active Wellbutrin Active Metoprolol Succinate ER 25 MG TAKE 1 TABLET BY MOUTH ONCE DAILY IN THE MORNING . DO NOT CRUSH OR CHEW Oral for 30 Active Probiotic & Acidophilus Ex St Active Encounters Encounter Location Date Provider Diagnosis [facility] [address] [place] [phone] 09/08/2023 SAADIA MARTINS Pinguecula, emir ateral H11.153 ; Age-related nuclear cataract, bilateral H25.13 and Nonexudative age-related macular degeneration, bilateral, early dry stage H35.3131 Assessments Encounter Date Diagnosis (ICD Code) Assessment Notes Treatment Notes Treatment Clinical Notes 09/08/2023 Pinguecula, bilateral (ICD-10 - H11.153) 09/08/2023 Age-related nuclear cataract, bilateral (ICD-10 - H25.13) 09/08/2023 Nonexudative age-related macular degeneration, bilateral, early dry stage (ICD-10 - H35.3131) 09/08/2023 Other physiologic cupping - oct shows healthy nerve PINGUCULUM- ART TEARS DUREZOL Plan Of Treatment Treatment Notes Assessment Notes Other physiologic cupping - oct shows healthy nerve PINGUCULUM- ART TEARS DUREZOL Next Appt Details Follow Up: 1 Year, Reason: Provider Name:SAADIA MARTINS, 11:00:00 AM, [address] [facility], [address], [place], [place], [phone], Progress Notes * Examination Category Sub-Category Detail Notes *Ophthalmology CONJUNCTIVA: clear PUPILS: equally round and re active no afferent defect FUNDI: optic disc C/D 0.35- 0.4 OU , macula RPE MOTTLING vessels normal , retina flat no holes or tears PVD OD OS EXTRAOCULAR MOVEMENT: good range of mike on bilaterally CONFRONTATION VISUAL FIELD (CVF): full t o confrontation CORNEA: clear LENS: 1-2+ NS OU IRIS: within normal limits ANTERIOR CHAMBER: D/Q LIDS AND LASHES: within normal limits
--- NOTE | 2023-12-30 11:05 | MHC.OFFWIV ---
Intake Vital Signs 12/30/23 11:07 Height 5 ft 10 in Weight 269 lb BMI 38.6 BP 108/70 Blood Pressure Location Rt brachial Position Sitting Pulse 83 Pulse Source Pulse Oximeter Pulse Oximetry (%) 98 Oxygen Delivery Method Room Air Intake Visit Reasons: EP eye infection? Intake Note: Patient here for bilat eye redness, itchiness which has been going on for about 3 weeks. Patient Tobacco Use Status: Former Tobacco user Allergies oatmeal Allergy (Unknown, Uncoded 12/30/23 11:07) hives Do you need a note to return to daycare/school/sports/work: No HPI HPI Comments History of Present Illness Details Patient is a 73-year-old male complaining of both eyes being red, swollen, itchy and watery leaking fluid and crusted shut in the mornings. He states they are not painful and he has no changes in his vision. He is not sure what color the crust is. He is unsure which eye it started in. [facility] Medical History Presence of Watchman left atrial appendage closure device RANULFO (obstructive sleep apnea) BPH (benign prostatic hyperplasia) New onset a-fib Foreign body of finger of right hand Left anterior fascicular block (LAFB) Iron deficiency Depression Vertebral compression fracture PLMD (periodic limb movement disorder) PVD (peripheral vascular disease) Dyslipidemia HTN (hypertension) Crohn's disease Venous insufficiency of both lower extremities Surgical History History of cholecystectomy Status post endovenous radiofrequency ablation (RFA) of saphenous vein Family History Father Cancer of prostate Mother Anxiety Sister Breast cancer Sister Nephritis Sister No problems noted. Sister No problems noted. Sister No problems noted. Daughter Substance use disorder Mental health disorder Daughter No problems noted. Daughter No problems noted. Brother No problems noted. Brother No problems noted. Brother Epilepsy Paternal Grandfather Substance use disorder Social History Housing: House Alcohol intake: never Patient Tobacco Use Status: Former Tobacco user Years Smoked: 50 years ago e-Cigarette/Vaping Use: Never Used Second Hand Smoke Exposure: No service: Yes Current occupational status: retired Cognitive needs: No Hearing needs: No Vision needs: No Review of Systems Const All systems reviewed & are unremarkable except as noted in HPI and below Physical Exam Vital Signs: Last Vital Signs Pulse 83 12/30/23 11:07 BP 108/70 12/30/23 11:07 Pulse Ox 98 12/30/23 11:07 Oxygen Delivery Method Room Air 12/30/23 11:07 BMI result Body Mass Index 38.6 Const General: cooperative, healthy appearing, comfortable, no acute distress and well developed Orientation/consciousness: patient oriented x3 Limitations: no limitations HEENT Head: Yes normal to inspection Eyes Alignment and Position: alignment normal and position normal Periorbital: periorbital findings normal Eyelids: Yes eyelid abnormality (Slightly swollen eyelids bilaterally upper and lower) Conjunctivae: conjunctival abnormal bilateral conjunctival injection (Mild) diffuse and discharge (Bilateral) purulent Neck Neck: Yes normal visual inspection and Yes supple Neuro General: patient oriented x3 Assessment & Plan Assessment & Plan (1) Bacterial conjunctivitis of both eyes: Code(s): H10.9 - Unspecified conjunctivitis; B96.89 - Other specified bacterial agents as the cause of diseases classified elsewhere Plan: We will send an antibiotic ointment however recommended patient try Pataday drops if the erythromycin does not improve his symptoms. Unclear if it is allergic or bacterial conjunctivitis Plan see above Medications: New erythromycin Apply to left eye 4 times a day while awake 0.5 inches ophthalmic (eye) QID 3.5 grams 0RF Coding Level of Care Code Est Pt Level 3 (51457) Diagnoses Bacterial conjunctivitis of both eyes H10.9; B96.89
[2023-12-30 11:07] VITALS: BP 108/70; PULSE 83; O2SAT 98; BMI 38.6
== END 2023-12-30 11:40 | disposition home or self-care (01) ==
PROVIDERS: PCP Nurse Practitioner Family; Visit Provider Physician Assistant
DX: H10.9 Unspecified conjunctivitis (principal); B96.89 Other specified bacterial agents as the cause of diseases classified elsewhere

== ENCOUNTER → 2023-12-30 10:26 | Outpatient (BNVA) | payer MEDICARE, OTHER, SELFPAY | PROVIDERS: PCP Nurse Practitioner Family | DX: H10.9 Unspecified conjunctivitis (principal); B96.89 Other specified bacterial agents as the cause of diseases classified elsewhere | CPT/HCPCS: 99212 ==

== ENCOUNTER 2024-01-18 12:48 | Outpatient (REF) | payer MEDICARE, OTHER, SELFPAY ==
[2024-01-18 18:17] LABS: Influenza A PCR NEGATIVE (Negative); Influenza B PCR NEGATIVE (Negative); Resp Syncy Virus RNA Qual PCR NEGATIVE (Negative); SARS COV2 PCR INHOUSE NEGATIVE (Negative)
== END 2024-01-18 12:49 | disposition home or self-care (01) ==
LOC: HO.LAB 12:48
PROVIDERS: Physician Assistant; PCP Nurse Practitioner Family
DX: Z13.89 Encounter for screening for other disorder (principal)
CPT/HCPCS: 0241U

== ENCOUNTER 2024-01-18 12:48 | Outpatient (AMB) | payer MEDICARE, OTHER, SELFPAY ==
--- OUTSIDE RECORDS SUMMARY | 2024-01-18 12:50 | XMS_ITS | Patient Health Record ---
Author Organization [facility] Address [address] [place] [address] Care Team Providers Care Radio Antenna Installer Name Role Phone MARIAH DSOUZA Primary Care Provider Steven Florence Unavailable [phone] ALLERGIES No Known Allergies REASON FOR REFERRAL [...] unspecified gastrointestinal tract location (K50.90) Active confirmed [id number] Problem Crohn''s disease of large intestine without complication (K50.10) Active confirmed 4822603 Problem Rectal bleeding (K62.5) Active confirmed 94409203 Problem Diarrhea, unspecified type (R19.7) Active confirmed 81063190 Problem Crohn's disease of colon (K50.10) Active confirmed Crohn's disea se of colon (86522437) Problem Diverticulosis of large intestine without perforation or abscess without bleeding (K57.30) Active confirmed Diverticul ar disease of colon (935159663) VITAL SIGNS Temperature 97.5 degrees Fahrenheit 05/13/2023 Blood pressure diastolic 00 mm Hg 12/02/2023 Height 70 in 12/02/2023 Blood pressure systolic 00 mm Hg 12/02/2023 Weight 267 lbs 12/02/2023 BMI 38.31 kg/m2 12/02/2023 Encounters Encounter Location Date Provider Diagnosis [facility] [address] [place] [phone] 05/13/2023 Steven Guan Crohns disease witho ut complication, unspecified gastrointestinal tract location K50.90 and Rectal bleeding K62.5 [facility] [address] [place] [address] 12/02/2023 Steven Guan Crohns disease witho ut complication, unspecified gastrointestinal tract location K50.90 [facility] [address] [place] [address] 03/15/2023 Steven Guan [facility] [address] [place] [address] 04/30/2023 Steven Guan [facility] [address] [place] [address] 05/10/2023 Steven Guan ASSESSMENTS Encounter Date Diagnosis [...] Name:Steven Guan , 11/30/2024 09:20:00 AM, [address], [address], [place], [address], Insurance Providers Payer Name Payer Address Payer Phone Subscriber Number Group Number Insured Name Patient Relationship to Insured Coverage Start Date Coverage End Date MEDICARE OF [place] [address] [place] [address] [id number] SEDA BOND Self - patient is the insured [employer] [address] [place] [address] [id number] SEDA BOND Self - patient is the insured MEDICAL (GENERAL) HISTORY Medical History History ICD Code Denies NH,DM,CVA,Lung disease,renal dise ase Crohn's colitis diagnosed in 2012--seen by Dr. Hurtado in [place]--- he had a negative colonoscopy in 2011, [...] there was no H. 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 Major in [place], [place] Colonoscopy in 05/2022 was ne gative for active Crohn's and polyps; there was no perianal disease, internal hemorrhoids were noted. Biopsies throughout the colon were negative for any colitis and dysplasia Watchman procedure placed in 08/2023 at [facility]--Coumadin was stopped and he was started on Plavix, along with his aspirin. He is scheduled for a ELIANA on 12/16/2023 at [facility] Surgical History Surgery Date(Month/Year) Cholecystectomy Back surgery Vein surgery of LE's 04/2018 and 05/2018
--- OUTSIDE RECORDS SUMMARY | 2024-01-18 12:50 | XMS_ITS ---
Author Organization [facility] Address [address] [place] [address] Care Team Providers Care Service Attendant Cafeteria Name Role Phone MARIAH DSOUZA Primary Care Provider Steven Florence Unavailable [phone] ALLERGIES No Known Allergies REASON FOR VISIT [...] 05/13/2023 Encounters Encounter Location Date Provider Diagnosis [facility] [address] [place] [address] 05/13/2023 Steven Guan Crohns disease witho ut [...] 09:20:00 AM, [address], [address], [place], [address], Progress Notes * Examination Category Sub-Category Detail [...]
--- OUTSIDE RECORDS SUMMARY | 2024-01-18 12:50 | XMS_ITS ---
Author Organization [facility] Address [address] [phone] Care Team Providers Care Chemistry Intern Name Role Phone PATRICIOJENNIFERMARIAH Primary Care Provider SAADIA Gibbons Unavailable [phone] Allergies No Known Allergies REASON FOR VISIT [...] Encounter Location Date Provider [facility] [address] [place] [phone] 09/08/2023 SAADIA MARTINS Pinguecula, emir ateral H11.153 [...] Reason: Provider Name:SAADIA MARTINS, 11:00:00 AM, [address] [facility], [address], [place], [place], [phone], Progress Notes * Examination Category Sub-Category Detail [...]
--- OUTSIDE RECORDS SUMMARY | 2024-01-18 12:50 | XMS_ITS ---
Author Organization [facility] Address [address] [place] [address] Care Team Providers Care Cardiac Cath Rn Name Role Phone MARIAH DSOUZA Primary Care Provider Steven Florence Unavailable [phone] ALLERGIES No Known Allergies REASON FOR VISIT [...] 12/02/2023 Encounters Encounter Location Date Provider Diagnosis [facility] [address] [place] [address] 12/02/2023 Steven Guan Crohns disease witho ut [...] 09:20:00 AM, [address], [address], [place], [address], Progress Notes * Examination Category Sub-Category Detail [...]
--- OUTSIDE RECORDS SUMMARY | 2024-01-18 12:50 | XMS_ITS ---
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
--- OUTSIDE RECORDS SUMMARY | 2024-01-18 12:50 | XMS_ITS ---
Author Organization [facility] Address [address] [place] [address] Care Team Providers Care Campaign Marketing Specialist Name Role Phone MARIAH DSOUZA Primary Care Provider Steven Florence [phone] Encounters Encounter Location Date Provider Diagnosis [facility] [address] [facility] [address] [place] [address] 05/10/2023 Steven Guan PLAN OF TREATMENT Next Appt Details Provider Name:Steven Guan , 11/30/2024 09:20:00 AM, [address], [address], [place], [address],
--- OUTSIDE RECORDS SUMMARY | 2024-01-18 12:51 | XMS_ITS | Patient Health Record ---
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) Active confirmed Problem Nuclear senile cataract (904918734) Age-related nuclear cataract, bilateral (H25.13) Active confirmed Problem Nonexudative age-related macular degeneration (241528266) Nonexudative age-related macular degeneration, bilateral, 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) Active confirmed Encounters Encounter Location Date Provider [facility] [address] [place] [phone] 03/08/2023 SAADIA MARTINS Pinguecula, emir ateral H11.153 ; Age-related nuclear cataract, bilateral H25.13 and Nonexudative age-related macular degeneration, bilateral, early dry stage H35.3131 [facility] [address] [place], [place] [phone] 09/08/2023 SAADIA MARTINS Pinguecumike, emir ateral H11.153 [...] Appt Details Provider Name:SAADIA MARTINS, 11:00:00 AM, [address] [place] [address], [place], [place], [phone], Insurance Providers Payer Name Payer Address Payer Phone Subscriber Number Group Number Insured Name Patient Relationship to Insured Coverage Start Date Coverage End Date Medicare [address] [place], [place] [id number] Jonah Bond Self - patient is the insured [employer] Medicare Enhanced [address] [place], [place] [id number] VarunJonah Self - patient is the insured Medical (General) History Medical History History ICD Code BPH COLITIS CROHN'S DISEASE [address] DR CERVANTES IRREGULAR HEARTBEAT - ON BLOOD THINNERS Surgical History Surgery Date(Month/Year) CHOLECYSTECTOMY Hospitalization History Reason Date(Month/Year) PALPATATIONS DR HIGH 04/2019
--- NOTE | 2024-01-18 13:28 | MHC.OFFWIV ---
Intake Vital Signs 01/18/24 13:30 Height 5 ft 10 in Weight 266 lb BMI 38.2 BP 120/70 Blood Pressure Location Rt brachial Position Sitting Pulse 90 Pulse Source Pulse Oximeter Temp 98.5 F Temp Source Oral Pulse Oximetry (%) 98 Oxygen Delivery Method Room Air Intake Visit Reasons: EP sore throat, congestion, running nose Intake Note: Patient here for congestion, bilat ear pain, slight cough, runny nose which has been present for about 2 days. Patient Tobacco Use Status: Former Tobacco user Allergies oatmeal Allergy (Unknown, Uncoded 01/18/24 13:31) hives Do you need a note to return to daycare/school/sports/work: No HPI HPI Comments History of Present Illness Details Patient is a 74-year-old male complaining of 2 days of a dry cough, head congestion, runny nose, bilateral ear pain and itchiness as well as a sore throat. He denies any fevers or shortness of breath beyond his baseline. He denies any sick contacts and he did not test at home for COVID. He denies a history of asthma or COPD. He has not taken any medications to make himself feel better. [facility] Medical History Presence of Watchman left atrial appendage closure device RANULFO (obstructive sleep apnea) BPH (benign prostatic hyperplasia) New onset a-fib Foreign body of finger of right hand Left anterior fascicular block (LAFB) Iron deficiency Depression Vertebral compression fracture PLMD (periodic limb movement disorder) PVD (peripheral vascular disease) Dyslipidemia HTN (hypertension) Crohn's disease Venous insufficiency of both lower extremities Surgical History History of cholecystectomy Status post endovenous radiofrequency ablation (RFA) of saphenous vein Family History Father Cancer of prostate Mother Anxiety Sister Breast cancer Sister Nephritis Sister No problems noted. Sister No problems noted. Sister No problems noted. Daughter Substance use disorder Mental health disorder Daughter No problems noted. Daughter No problems noted. Brother No problems noted. Brother No problems noted. Brother Epilepsy Paternal Grandfather Substance use disorder Social History (Reviewed 12/14/23 @ 09:37 by CRISTOBAL Hawkins Housing: House Alcohol intake: never Patient Tobacco Use Status: Former Tobacco user Years Smoked: 50 years ago e-Cigarette/Vaping Use: Never Used Second Hand Smoke Exposure: No service: Yes Current occupational status: retired Cognitive needs: No Hearing needs: No Vision needs: No Review of Systems Const All systems reviewed & are unremarkable except as noted in HPI and below Physical Exam Vital Signs: Last Vital Signs Temp 98.5 F 01/18/24 13:30 Pulse 90 01/18/24 13:30 BP 120/70 01/18/24 13:30 Pulse Ox 98 01/18/24 13:30 Oxygen Delivery Method Room Air 01/18/24 13:30 BMI result Body Mass Index 38.2 Const General: cooperative, healthy appearing, comfortable and no acute distress Orientation/consciousness: patient oriented x3 Limitations: no limitations HEENT Head: Yes normal to inspection Ears: hearing grossly normal bilaterally, external ears normal, Abnormal EAC present cerumen impaction bilateral and unable to visualize TM bilaterally General nose exam: Normal external nose present, Normal nares present and No nasal discharge present Face and sinus: Yes normal facial exam and Yes sinuses nontender Mouth: Normal oral and palatal mucosa present and moist mucous membranes Throat: Yes tonsils normal, Yes uvula midline and Yes posterior oropharynx abnormal (Erythema) Eyes General: appearance normal, both eyes and all related structures Neck Neck: Yes normal visual inspection Resp Effort & Inspection: normal respiratory effort, able to speak in complete sentences, no respiratory distress, not tachypneic, no tripod positioning and no use of accessory muscles Auscultation: clear to auscultation bilaterally Cardio Rate: regular rate Rhythm: regular rhythm Heart sounds: normal S1 and S2 Skin General skin exam: no rashes or lesions noted Neuro General: patient oriented x3 Extrem General: Yes normal to inspection and Yes no clubbing, cyanosis or edema Office Procedures Cerumen Removal Details: Unable to clear ears completely From which ear canal was the cerumen removed: bilateral Removal: irrigation Notes: patient tolerated procedure well and no complications [id number] Irrigation/Lavage Assessment & Plan Assessment & Plan (1) URI (upper respiratory infection): Code(s): J06.9 - Acute upper respiratory infection, unspecified Qualifiers: URI type: unspecified URI Qualified Code(s): J06.9 - Acute upper respiratory infection, unspecified Plan: Vital signs stable and patient well-appearing, however due to his age, I will get a chest x-ray to rule out pneumonia. Also sent flu COVID and RSV. (2) Impacted cerumen of both ears: Code(s): H61.23 - Impacted cerumen, bilateral Plan: Recommended patient purchase [id number] Debrox drops and use them for the next 3-5 days and return to the clinic for another attempt at irrigation. Plan see above Orders: Orders SARS-CoV2/FLU/RSV Today J06.9 - Acute upper respiratory infection, unspecified XR chest 2V Today R05.9 - Cough, unspecified Coding Level of Care Code Est Pt Level 4 (04302) Diagnoses Upper respiratory tract infection, unspecified type J06.9 URI type: unspecified URI Impacted cerumen of both ears H61.23 CPT Codes Office Procedure - CPT: 31740-Rtv Irrigation/Lavage ([id number])
[2024-01-18 13:30] VITALS: BP 120/70; PULSE 90; TEMP 36.9; O2SAT 98; BMI 38.2
== END 2024-01-18 14:24 | disposition home or self-care (01) ==
PROVIDERS: PCP Nurse Practitioner Family; Visit Provider Physician Assistant
DX: J06.9 Acute upper respiratory infection, unspecified (principal); H61.23 Impacted cerumen, bilateral

== ENCOUNTER 2024-01-18 14:12 | Outpatient (REF) | payer MEDICARE, OTHER, SELFPAY ==
--- NOTE | ~2024-01-18 | XR_ITS ---
EXAMINATION: XR CHEST CLINICAL INFORMATION: Cough COMPARISON: Chest x-ray November 20, 2020 TECHNIQUE: 2 views of the chest were obtained. FINDINGS: Cardiac silhouette is enlarged. Embolization plug projects over the heart. The lungs are well aerated. Mild bibasilar linear opacities. No gross lobar consolidation. No appreciable pleural effusion. Moderate degenerative changes of the spine. XR/XR chest 2V IMPRESSION: Mild bibasilar linear opacities, likely atelectasis. No gross lobar consolidation. Electronically signed by: Lester Ch MD 01/19/2024 04:06 PM EDT
== END 2024-01-18 14:13 | disposition home or self-care (01) ==
LOC: HO.HMGCX 14:12
PROVIDERS: PCP Nurse Practitioner Family; Visit Provider Physician Assistant
DX: R05.9 Cough, unspecified (principal)
CPT/HCPCS: 0241U; 69209; 71046; 99212

== ENCOUNTER 2024-01-21 08:49 | Outpatient (AMB) | payer MEDICARE, OTHER, SELFPAY ==
--- OUTSIDE RECORDS SUMMARY | 2024-01-21 08:51 | XMS_ITS ---
Author Organization [facility] Address [address] [place] [address] Care Team Providers Care Communications Specialist Name Role Phone MARIAH DSOUZA Primary Care Provider Steven Florence Unavailable [phone] ALLERGIES No Known Allergies REASON FOR VISIT [...] 05/13/2023 Encounters Encounter Location Date Provider Diagnosis [facility] [address] [place] [address] 05/13/2023 Steven Guan Crohns disease witho ut [...] 09:20:00 AM, [address], [address], [place], [address], Progress Notes * Examination Category Sub-Category Detail [...]
--- OUTSIDE RECORDS SUMMARY | 2024-01-21 08:51 | XMS_ITS ---
Author Organization [facility] Address [address] [place] [address] Care Team Providers Care Professor Of Engineering Name Role Phone MARIAH DSOUZA Primary Care Provider Steven Florence Unavailable [phone] ALLERGIES No Known Allergies REASON FOR VISIT [...] Encounter Location Date Provider Diagnosis [facility] [address] [place] [address] 12/02/2023 Steven Guan Crohns disease witho ut [...] 09:20:00 AM, [address], [address], [place], [address], Progress Notes * Examination Category Sub-Category Detail [...]
--- OUTSIDE RECORDS SUMMARY | 2024-01-21 08:51 | XMS_ITS | Patient Health Record ---
Author Organization [facility] Address [address] [place] [address] Care Team Providers Care Faculty Administrator Name Role Phone MARIAH DSOUZA Primary Care Provider Steven Florence Unavailable [phone] ALLERGIES No Known Allergies REASON FOR REFERRAL [...] unspecified gastrointestinal tract location (K50.90) Active confirmed 20306830 Problem Crohn''s disease of large intestine without complication (K50.10) Active confirmed 7722514 Problem Rectal bleeding (K62.5) Active confirmed 30280514 Problem Diarrhea, unspecified type (R19.7) Active confirmed 98746599 Problem Crohn's disease of colon (K50.10) Active confirmed Crohn's disea se of colon (30960735) Problem Diverticulosis of large intestine without perforation or abscess without bleeding (K57.30) Active confirmed Diverticul ar disease of colon (881058715) VITAL SIGNS Temperature 97.5 degrees Fahrenheit 05/13/2023 Blood pressure diastolic 00 mm Hg 12/02/2023 Height 70 in 12/02/2023 Blood pressure systolic 00 mm Hg 12/02/2023 Weight 267 lbs 12/02/2023 BMI 38.31 kg/m2 12/02/2023 Encounters Encounter Location Date Provider Diagnosis [facility] [address] [place] [phone] 05/13/2023 Steven Guan Crohns disease witho ut complication, unspecified gastrointestinal tract location K50.90 and Rectal bleeding K62.5 [facility] [address] [place] [address] 12/02/2023 Steven Guan Crohns disease witho ut complication, unspecified gastrointestinal tract location K50.90 [facility] [address] [place] [phone] 03/15/2023 Steven Guan [facility] [address] [place] [phone] 04/30/2023 Steven Guan [facility] [address] [place] [phone] 05/10/2023 Steven Guan ASSESSMENTS Encounter Date Diagnosis [...] Name:Steven Guan , 11/30/2024 09:20:00 AM, [address], [address], [place], [address], Insurance Providers Payer Name Payer Address Payer Phone Subscriber Number Group Number Insured Name Patient Relationship to Insured Coverage Start Date Coverage End Date MEDICARE OF [place] [address] [place] [address] [id number] SEDA BOND Self - patient is the insured [employer] [address] [place] [phone] [id number] SEDA BOND Self - patient is the insured MEDICAL (GENERAL) HISTORY Medical History History ICD Code Denies [place],DM,CVA,Lung disease,renal dise ase Crohn's colitis diagnosed in 2012--seen by Dr. Hurtado in [place]--- he had a negative colonoscopy in 2011, [...] and there was no H. 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 Major in [place], [place] Colonoscopy in 05/2022 was ne gative for active Crohn's and polyps; there was no perianal disease, internal hemorrhoids were noted. Biopsies throughout the colon were negative for any colitis and dysplasia Watchman procedure placed in 08/2023 at [facility]--Coumadin was stopped and he was started on Plavix, along with his aspirin. He is scheduled for a ELIANA on 12/16/2023 at [facility] Surgical History Surgery Date(Month/Year) Cholecystectomy Back surgery Vein surgery of LE's 04/2018 and 05/2018
--- OUTSIDE RECORDS SUMMARY | 2024-01-21 08:51 | XMS_ITS ---
Author Organization [facility] Address [address] [place] [address] Care Team Providers Care Rn Clinical Name Role Phone MARIAH DSOUZA Primary Care Provider Steven Florence [phone] Encounters Encounter Location Date Provider Diagnosis [facility] [address] [facility] [address] [place] [address] 05/10/2023 Steven Guan PLAN OF TREATMENT Next Appt Details Provider Name:Steven Guan , 11/30/2024 09:20:00 AM, [address], [address], [place], [address],
--- OUTSIDE RECORDS SUMMARY | 2024-01-21 08:52 | XMS_ITS ---
[facility] Organization [facility] Address [address] [phone] Care Team Providers Care Turnaround Engineer Name Role Phone PATRICIOJENNIFERMARIAH Primary Care Provider SAADIA Gibbons Unavailable [phone] Allergies No Known Allergies REASON FOR VISIT [...] Encounter Location Date Provider Diagnosis [facility] [address] [place] [phone] 09/08/2023 SAADIA MARTINS Pinguecula, emir ateral H11.153 [...] Reason: Provider Name:SAADIA MARTINS, 11:00:00 AM, [address] [facility], [address], [place], [place], [phone], Progress Notes * Examination Category Sub-Category Detail [...]
--- OUTSIDE RECORDS SUMMARY | 2024-01-21 08:52 | XMS_ITS | Patient Health Record ---
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) Active confirmed Problem Nuclear senile cataract (220746283) Age-related nuclear cataract, bilateral (H25.13) Active confirmed Problem Nonexudative age-related macular degeneration (131135749) Nonexudative age-related macular degeneration, bilateral, 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) Active confirmed Encounters Encounter Location Date Provider Diagnosis [facility] [address] [place] [phone] 03/08/2023 SAADIA MARTINS Pinguecula, emir ateral H11.153 ; Age-related nuclear cataract, bilateral H25.13 and Nonexudative age-related macular degeneration, bilateral, early dry stage H35.3131 [facility] [address] [place], [place] [phone] 09/08/2023 SAADIA MARTINS Pinguecumike, emir ateral H11.153 [...] Appt Details Provider Name:SAADIA MARTINS, 11:00:00 AM, [address] [place] [address], [place], [place], [phone], Insurance Providers Payer Name Payer Address Payer Phone Subscriber Number Group Number Insured Name Patient Relationship to Insured Coverage Start Date Coverage End Date Medicare [address] [place], [place] [id number] Jonah Bond Self - patient is the insured [employer] Medicare Enhanced [address] [place], [place] [id number] VarunJonah Self - patient is the insured Medical (General) History Medical History History ICD Code BPH COLITIS CROHN'S DISEASE [address] DR CERVANTES IRREGULAR HEARTBEAT - ON BLOOD THINNERS Surgical History Surgery Date(Month/Year) CHOLECYSTECTOMY Hospitalization History Reason Date(Month/Year) PALPATATIONS DR HIGH 04/2019
--- OUTSIDE RECORDS SUMMARY | 2024-01-21 08:52 | XMS_ITS ---
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
--- NOTE | 2024-01-21 08:56 | MHC.OFFWIV ---
Intake Vital Signs 01/21/24 08:59 Height 5 ft 10 in Weight 266 lb BMI 38.2 BP 120/82 Blood Pressure Location Rt brachial Position Sitting Pulse 86 Pulse Source Pulse Oximeter Pulse Oximetry (%) 96 Oxygen Delivery Method Room Air Intake Visit Reasons: EP re check for Pneumonia Patient Tobacco Use Status: Former Tobacco user Allergies oatmeal Allergy (Unknown, Uncoded 01/18/24 13:31) hives Do you need a note to return to daycare/school/sports/work: No HPI HPI Comments History of Present Illness Details This is a 74-year-old male who presented to the walk-in clinic for a follow-up on bilateral cerumen impaction. Patient was seen here on 01/18/2024 and had bilateral cerumen impaction but they were unable to remove cerumen. He was encouraged deep odqq-miw-igmrovp ear wax drops and follow-up today. Patient states he did by the drops but has not used them yet. Of note, patient was also diagnosed with pneumonia and he was given Augmentin/azithromycin. Patient states he is still coughing a bit but he does feel better. He denies any fever/chills. He denies any chest pain or shortness of breath. [facility] Medical History Presence of Watchman left atrial appendage closure device RANULFO (obstructive sleep apnea) BPH (benign prostatic hyperplasia) New onset a-fib Foreign body of finger of right hand Left anterior fascicular block (LAFB) Iron deficiency Depression Vertebral compression fracture PLMD (periodic limb movement disorder) PVD (peripheral vascular disease) Dyslipidemia HTN (hypertension) Crohn's disease Venous insufficiency of both lower extremities Surgical History History of cholecystectomy Status post endovenous radiofrequency ablation (RFA) of saphenous vein Family History Father Cancer of prostate Mother Anxiety Sister Breast cancer Sister Nephritis Sister No problems noted. Sister No problems noted. Sister No problems noted. Daughter Substance use disorder Mental health disorder Daughter No problems noted. Daughter No problems noted. Brother No problems noted. Brother No problems noted. Brother Epilepsy Paternal Grandfather Substance use disorder Social History Housing: House Alcohol intake: never Patient Tobacco Use Status: Former Tobacco user Years Smoked: 50 years ago e-Cigarette/Vaping Use: Never Used Second Hand Smoke Exposure: No service: Yes Current occupational status: retired Cognitive needs: No Hearing needs: No Vision needs: No Review of Systems Const All systems reviewed & are unremarkable except as noted in HPI and below Reports no additional complaints Eyes Reports no additional complaints ENT Reports no additional complaints Card Reports no additional complaints Resp Reports no additional complaints GI Reports no additional complaints Reports no additional complaints Musc Reports no additional complaints Skin/Breast Reports system reviewed and no additional complaints, except as documented Neuro Reports no additional complaints Psych Reports no additional complaints Endo Reports no additional complaints Naresh/Lymph Reports no additional complaints Aller/Immun Reports no additional complaints Physical Exam Vital Signs: Last Vital Signs Pulse 86 01/21/24 08:59 BP 120/82 01/21/24 08:59 Pulse Ox 96 01/21/24 08:59 Oxygen Delivery Method Room Air 01/21/24 08:59 BMI result Body Mass Index 38.2 Const Other: Vital signs reviewed. Constitutional: Non-toxic appearing. No acute distress. Well-developed and well-nourished. HEENT: Normocephalic and atraumatic. External auditory canals with cerumen impaction bilaterally. Unable to visualize tympanic membranes bilaterally. Skin: Warm and dry. No rashes or lesions noted. Neck: Full and painless range of motion. No cervical lymphadenopathy. Cardio: Regular rate with irregular rhythm (known hx of Afib). No murmurs, gallops, or rubs. No lower extremity edema. No JVD. Pulmonary: No respiratory distress. No accessory muscle usage. Clear to auscultation bilaterally without wheezing, crackles, or rhonchi. Gastrointestinal: Soft, nontender, and nondistended in all 4 quadrants. Musculoskeletal: Normal range of motion in joints throughout the body. No deformity or other signs of injury. Neuro: Alert and oriented x4. Cranial nerves 2-12 grossly intact. No focal deficits appreciated. Psych: Normal mood and affect. Assessment & Plan Assessment & Plan (1) Impacted cerumen of both ears: Code(s): H61.23 - Impacted cerumen, bilateral Plan: This is a 74-year-old male who presented to the walk-in clinic for a follow-up on impacted cerumen. He was seen here on 01/18/2024 and was found to have impacted cerumen bilaterally but they were unable to remove the cerumen. He was instructed to use ksov-wrm-mxlwgjh ear wax removal drops and return to the walk-in clinic today. Patient did buy the ear wax removal drops; however, he has not used them. We did attempt cerumen impaction again but we were unsuccessful. Patient was encouraged to use the ear wax removal drops over the weekend and return to the clinic on Wednesday. Patient verbalizes understanding and he is in agreement with the plan. Coding Level of Care Code Est Pt Level 3 (59302) Diagnoses Impacted cerumen of both ears H61.23
[2024-01-21 08:59] VITALS: BP 120/82; PULSE 86; O2SAT 96; BMI 38.2
== END 2024-01-21 10:13 | disposition home or self-care (01) ==
PROVIDERS: PCP Nurse Practitioner Family; Visit Provider Physician Assistant Medical
DX: H61.23 Impacted cerumen, bilateral (principal)

== ENCOUNTER → 2024-01-21 08:49 | Outpatient (BNVA) | payer MEDICARE, OTHER, SELFPAY | PROVIDERS: PCP Nurse Practitioner Family | DX: H61.23 Impacted cerumen, bilateral (principal) | CPT/HCPCS: 99212 ==

== ENCOUNTER 2024-02-25 09:06 | Outpatient (REF) | payer MEDICARE, OTHER, SELFPAY ==
[2024-02-25 10:56] LABS: MANUAL DIFF FLAG NO
[2024-02-25 10:58] LABS: Basophils Absolute Auto 0.1 X10*3/uL (0.0-0.2); Basophils Percent Auto 1.6 % (0-2); Eosinophils Absolute Auto 0.4 X10*3/uL (0.0-0.4); Eosinophils Percent Auto 8.3 % (0-4); Hematocrit 34.8 % (42.0-52.0); Hemoglobin 11.1 g/dl (14.0-18.0); Imm Gran Abs Auto 0.01 X10*3/uL (0.00-0.03); Imm Gran Pct Auto 0.2 % (0.0-0.4); Lymphocytes Absolute Auto 1.4 X10*3/uL (1.2-4.9); Lymphocytes Percent Auto 26.6 % (20-40); Mean Corpuscular HGB Conc 31.9 g/dl (31.0-36.0); Mean Corpuscular Hemoglobin 29.4 pg (27.0-33.0); Mean Corpuscular Volume 92.3 fL (80.0-98.0); Mean Platelet Volume 9.4 fL (9.4-12.4); Monocytes Absolute Auto 0.5 X10*3/uL (0.1-1.2); Monocytes Percent Auto 10.5 % (2-11); Neutrophils Absolute Auto 2.7 x10*3/uL (2.0-8.3); Neutrophils Percent Auto 52.8 % (45-73); Platelet Count 266 X10*3/uL (160-400); Red Blood Count 3.77 X10*6/uL (4.60-5.80); Red Cell Distribution Width 15.6 % (11.0-16.0); White Blood Count 5.2 X10*3/uL (4.8-10.8)
[2024-02-25 10:59] LABS: Appearance Urine Clear; Color Urine Yellow; Glucose Urine UA Negative (Negative); Leukocyte Esterase Urine Negative (Negative); Nitrite Urine Negative (Negative); Urine Blood Negative (Negative); Urine Ketones Negative (Negative); Urine Protein Negative (Neg-Trace)
[2024-02-25 11:20] LABS: Alanine Aminotransferase 23 U/L (0-40); Albumin Level 3.7 g/dL (3.5-5.0); Alkaline Phosphatase 91 U/L (39-117); Anion Gap 11 (12-20); Aspartate Amino Transferase 22 U/L (5-37); Bilirubin Total 0.5 mg/dL (0.0-1.0); Blood Urea Nitrogen 16 mg/dL (9-16); Calcium 8.7 mg/dL (8.4-10.2); Carbon Dioxide 25 mmol/L (22-29); Chloride 111 mmol/L (96-108); Cholesterol 125 mg/dL (<200); Estimated Glomerular Filt Rate > 60; Glucose Fasting 98 mg/dL (60-99); HDL Cholesterol 51 mg/dL (>40); LDL Cholesterol Calculated 65 mg/dL (<100); Potassium 4.6 mmol/L (3.3-5.1); Sodium 142 mmol/L (135-145); Total Protein 6.8 g/dL (6.5-8.0); Triglycerides 47 mg/dL (<150)
[2024-02-25 11:39] LABS: TSH reflex Free T4 1.58 uIU/mL (0.32-4.0)
== END 2024-02-25 09:07 | disposition home or self-care (01) ==
LOC: HO.HMGCLDS 09:06
PROVIDERS: PCP Nurse Practitioner Family; Visit Provider Nurse Practitioner Family
DX: I10 Essential (primary) hypertension (principal)
CPT/HCPCS: 36415; 80053; 80061; 81003; 84443; 85025

== ENCOUNTER 2024-02-29 07:54 | Outpatient (REF) | payer MEDICARE, OTHER, SELFPAY | END 2024-02-29 07:55 | disposition home or self-care (01) | LOC: HO.HMGCLDS 07:54 | PROVIDERS: PCP Nurse Practitioner Family; Visit Provider Nurse Practitioner Family | DX: F33.9 Major depressive disorder, recurrent, unspecified (principal); I10 Essential (primary) hypertension; R60.9 Edema, unspecified; Z12.5 Encounter for screening for malignant neoplasm of prostate | CPT/HCPCS: 36415; 84153; 96127; 99212 ==

== ENCOUNTER 2024-02-29 07:54 | Outpatient (AMB) | payer MEDICARE, OTHER, SELFPAY ==
[2024-02-29 08:01] VITALS: BP 118/74; PULSE 71; O2SAT 97; BMI 38.7
--- NOTE | 2024-02-29 08:01 | A.OFFPC_ITS ---
Vital Signs 02/29/24 08:01 Height 5 ft 10 in Weight 270 lb BMI 38.7 BP 118/74 Blood Pressure Location Rt brachial Position Sitting Pulse 71 Pulse Source Pulse Oximeter Pulse Oximetry (%) 97 Oxygen Delivery Method Room Air Intake Visit Reasons: 6 Month F/U - see comments Intake Note: pt is here for 6 month follow up Commercial Real Estate Assistant Required: No Allergies oatmeal Allergy (Unknown, Uncoded 02/29/24 08:17) hives Medication List - Last Reconciled 02/29/24 by SARAH GodfreyP- aspirin 81 mg PO DAILY bupropion HCl XL 150 mg PO DAILY calcium 600 mg PO DAILY@1800 cholecalciferol (vitamin D3) 25 mcg PO DAILY@1800 clopidogrel 75 mg PO DAILY ferrous sulfate (Iron (ferrous sulfate)) 325 mg PO DAILY@1800 fluoxetine 80 mg PO DAILY metoprolol succinate ER mg PO multivitamin 1 tab PO DAILY@1800 [Probiotic 1 tab PO DAILY@1800] rosuvastatin 5 mg PO DAILY tamsulosin 0.8 mg (2 x 0.4 mg) PO DAILY 90 days torsemide 10 mg PO DAILY Tobacco use date assessed: 08/31/23 Fall risk assessment: No Falls in past year Last assessed Fall Risk: 02/29/24 Dental Screening Dental Screen Date: 08/31/23 HPI 6 Month F/U - see comments HPI Details History of Present Illness The patient is a 74-year-old male presenting with depression and HTN follow up. The depression appears to have slightly improved, though the patient experienced stress upon learning of a family member's potential health issue. The patient's mental state may fluctuate with news affecting his family, particularly concerning health uncertainties. HTN: stable Social History - Engages in home activities such as can violet and baking. - Symptoms of shoulder arthritis limit s ome daily activities. - Mentions of familial involvement, such as joint appointments with a spouse. Review of Systems - denies any blurred vision, MONET, chills, fevers, increased SOB, CP Physical Exam - Respiratory- Breath sounds clear. - Abdomen- obese, nontender - Extremities- Signs of edema present (+ 1) s1 s2 A+O Results - Labs: Annual check of cholesterol show s excessively impressive levels. - Tests: Current PSA testing needed, no recent results mentioned. Plan 1. Depression: Continue monitoring and s upportive conversation. Address familial impact on mental health. 2. Peripheral Edema: Increase diuretic d ose temporarily if symptomatically worsened. Monitor fluid status., let a provider know, and follow up with cardiology team 3. Prostate Health: Plan PSA testing to assess prostate health. No recent urological consult noted. Patient was informed and verbally consented to the use of an ambient scribe for clinic note documentation during this visit. Discussion Notes Patient Instructions - Continue current depression management and family interactions. - Monitor for increased swelling; increa se diuretic use temporarily as discussed. - Return for PSA testing as outlined. - Schedule cardiology follow-up as veronica alcocer and ensure appointments are synchronized with family logistics. [facility] Medical History Presence of Watchman left atrial appendage closure device RANULFO (obstructive sleep apnea) BPH (benign prostatic hyperplasia) New onset a-fib Foreign body of finger of right hand Left anterior fascicular block (LAFB) Iron deficiency Depression Vertebral compression fracture PLMD (periodic limb movement disorder) PVD (peripheral vascular disease) Dyslipidemia HTN (hypertension) Crohn's disease Venous insufficiency of both lower extremities Surgical History History of cholecystectomy Status post endovenous radiofrequency ablation (RFA) of saphenous vein Family History Father Cancer of prostate Mother Anxiety Sister Breast cancer Sister Nephritis Sister No problems noted. Sister No problems noted. Sister No problems noted. Daughter Substance use disorder Mental health disorder Daughter No problems noted. Daughter No problems noted. Brother No problems noted. Brother No problems noted. Brother Epilepsy Paternal Grandfather Substance use disorder Social History Housing: House Alcohol intake: never Patient Tobacco Use Status: Former Tobacco user Years Smoked: 50 years ago e-Cigarette/Vaping Use: Never Used Second Hand Smoke Exposure: No service: Yes Current occupational status: retired Cognitive needs: No Hearing needs: No Vision needs: No Questionnaire PHQ-9 Over the last 2 weeks, how often have you been bothered by any of the following problems? 1. Little interest or pleasure in doing things: not at all 2. Feeling down, depressed, or hopeless: not at all 3. Trouble falling or staying asleep, or sleeping too much: not at all 4. Feeling tired or having little energy: more than half the days 5. Poor appetite or overeating: more than half the days 6. Feeling bad about yourself - or that you are a failure or have let yourself or your family down: more than half the days 7. Trouble concentrating on things, such as reading the newspaper or watching television: not at all 8. Moving or speaking so slowly that other people could have noticed. Or the opposite - being so fidgety or restless that you have been moving around a lot more than usual: not at all 9. Thoughts that you would be better off or of hurting yourself in some way: not at all Total score: 6 Depression Screening Interpretation: Negative Depression Screening Done: Yes 68976 - PHQ-9 Billing: Yes Source: Developed by Drs. Steven Kaplan, Alana Day, Perry Elmore and colleagues, with an educational yehuda from [email or web address]. Thrive Questionnaire Date Thrive assessed: 02/29/24 I am a: Patient What is your living situation today?: I have a steady place to live Within the past 12 months, did the food you bought not last and you didn't have the money to get more?: Never true Within the past 12 months, did you worry whether your food would run out before you got money to buy more?: Never true Do you have trouble paying for medicines?: No Do you have trouble getting transportation to medical appointments?: Yes Do you have trouble paying your heating and electricity bill?: No Do you have trouble taking care of your child, family member or friend?: No Do you have trouble with day-to-day activities such as bathing, preparing meals, shopping, managing finances, etc.?: No Are you currently unemployed and looking for a job?: No Are you interested in more education?: No Please select the resources that you would like help with: None Currently or been in a relationship where the following occur: No concerns reported THRIVE Score: 1 AUDIT C Alcohol Use Questionnaire (AUDIT-C) 1. How often do you have a drink containing alcohol?: Never 3. How often do you have six or more drinks on one occasion?: Never Total Score: 0 Score Reviewed/Action Taken: Yes TAM-7 AMB Questionnaire TAM-7 Date TAM - 7 assessed: 02/29/24 Feeling nervous, anxious, or on edge: 0 = Not at all Not being able to stop or control worryin = Not at all Worrying too much about different things: 0 = Not at all Trouble relaxin = Not at all Being so restless that it is hard to sit still: 0 = Not at all Becoming easily annoyed or irritable: 0 = Not at all Feeling afraid as if something awful might happen: 0 = Not at all Total TAM-7 score (0-4 normal; 5-9 mild; 10-14 moderate; 15-21 severe): 0 Source: Developed by Drs. Steven Kaplan, Alana Day, Perry Elmore and colleagues, with an educational yehuda from [email or web address]. TAM-7 Assessment Billing TAM-7 Assessment Tool: TAM-7 Assessment 30768 Physical exam (Primary Care) Vital Signs: Last Vital Signs Pulse 71 02/29/24 08:01 BP 118/74 02/29/24 08:01 Pulse Ox 97 02/29/24 08:01 Oxygen Delivery Method Room Air 02/29/24 08:01 BMI result Body Mass Index 38.7 Tobacco/Smoking Status: Tobacco use Status Tobacco use date assessed 08/31/23 02/29/24 08:03 Patient Tobacco Use Status Former Tobacco user 02/29/24 08:03 e-Cigarette/Vaping Use Never Used 02/29/24 08:03 PHQ-9: PHQ-9 Score PHQ-9: Total score 6 02/29/24 08:03 Depression Screening Interpretation: Negative Thrive Assessment: Date of Thrive Assessment Date Thrive assessed 02/29/24 02/29/24 08:03 Currently or been in a relationship where the following occur: No concerns reported Coding Level of Care Code Est Pt Level 3 (97133) Diagnoses Screening PSA (prostate specific antigen) Z12.5 Edema R60.9 HTN (hypertension) I10 Major depression, recurrent F33.9 Additional Codes TAM-7 Assessment Billing - TAM-7 Assessment Tool: TAM-7 Assessment 64633 ([id number]) PHQ-9 - 84505 - PHQ-9 Billing: Yes ([id number]) Assessment & Plan Assessment & Plan (1) Screening PSA (prostate specific antigen): Code(s): Z12.5 - Encounter for screening for malignant neoplasm of prostate Category: Medical (2) Edema: Code(s): R60.9 - Edema, unspecified Category: Medical (3) HTN (hypertension): Code(s): I10 - Essential (primary) hypertension Category: Medical (4) Major depression, recurrent: Code(s): F33.9 - Major depressive disorder, recurrent, unspecified Category: Medical Plan . Orders: Orders Prostate Specific Antigen Scr Today Z12.5 - Encounter for screening for malignant neoplasm of prostate
== END 2024-02-29 08:29 | disposition home or self-care (01) ==
PROVIDERS: PCP Nurse Practitioner Family; Visit Provider Nurse Practitioner Family
DX: Z12.5 Encounter for screening for malignant neoplasm of prostate (principal); R60.9 Edema, unspecified; I10 Essential (primary) hypertension; F33.9 Major depressive disorder, recurrent, unspecified

== ENCOUNTER 2024-04-12 10:56 | Outpatient (AMB) | payer MEDICARE, OTHER, SELFPAY ==
--- NOTE | 2024-04-12 11:20 | MHC.OFFWIV ---
Intake Vital Signs 04/12/24 11:22 Height 5 ft 10 in Weight 274 lb BMI 39.3 BP 110/66 Blood Pressure Location Lt brachial Position Sitting Pulse 80 Pulse Source Pulse Oximeter Pulse Oximetry (%) 96 Oxygen Delivery Method Room Air Intake Visit Reasons: EP nose, chest congestion, cough Intake Note: Pt is here today for a walk in visit. Pt c/o cough, congestion since last night. Patient Tobacco Use Status: Former Tobacco user Allergies oatmeal Allergy (Unknown, Uncoded 04/12/24 11:25) hives HPI HPI Comments History of Present Illness Details History - The patient is a 74-year-old male presenting with upper respiratory symptoms. - Symptoms began with a sore throat approximately two days prior and have included sneezing, runny nose, and nocturnal cough. - Wheezing and slight shortness of breath observed, but denied by the patient as being related to past history of respiratory conditions. - The patient has not taken medications for relief of symptoms and no fever observed. - Reports of itching in ears but no pain, sinus pain, or tenderness. Physical Exam General: Cooperative, healthy appearing, comfortable and no acute distress Orientation/consciousness: Patient oriented x3 Limitations: No limitations Head: Normal to inspection Ears: Hearing grossly normal bilaterally, external ears normal and TM's normal bilaterally, some cerumen noted Nose: Normal external nose present, Normal nares present with nasal congestion noted Face and sinus: Normal facial exam and Yes sinuses nontender Mouth: Normal oral and palatal mucosa present and moist mucous membranes Throat: Yes tonsils normal, Yes uvula midline. Posterior oropharynx erythema Eyes: Appearance normal, both eyes and all related structures Neck: Normal visual inspection Respiratory: Clear to auscultation bilaterally. Normal respiratory effort, able to speak in complete sentences, Actively coughing, no respiratory distress, not tachypneic, no tripod positioning and no use of accessory muscles, wheezing present, shortness of breath reported Cardiovascular: Regular rate and rhythm. Normal S1 and S2 Skin: No rashes or lesions noted Neuro: Patient oriented x3 Extremities: Normal to inspection and Yes no clubbing, cyanosis or edema [facility] Medical History Presence of Watchman left atrial appendage closure device RANULFO (obstructive sleep apnea) BPH (benign prostatic hyperplasia) New onset a-fib Foreign body of finger of right hand Left anterior fascicular block (LAFB) Iron deficiency Depression Vertebral compression fracture PLMD (periodic limb movement disorder) PVD (peripheral vascular disease) Dyslipidemia HTN (hypertension) Crohn's disease Venous insufficiency of both lower extremities Surgical History History of cholecystectomy Status post endovenous radiofrequency ablation (RFA) of saphenous vein Family History Father Cancer of prostate Mother Anxiety Sister Breast cancer Sister Nephritis Sister No problems noted. Sister No problems noted. Sister No problems noted. Daughter Substance use disorder Mental health disorder Daughter No problems noted. Daughter No problems noted. Brother No problems noted. Brother No problems noted. Brother Epilepsy Paternal Grandfather Substance use disorder Social History Housing: House Alcohol intake: never Patient Tobacco Use Status: Former Tobacco user Years Smoked: 50 years ago e-Cigarette/Vaping Use: Never Used Second Hand Smoke Exposure: No service: Yes Current occupational status: retired Cognitive needs: No Hearing needs: No Vision needs: No Review of Systems Const All systems reviewed & are unremarkable except as noted in HPI and below Physical Exam Vital Signs: Last Vital Signs Pulse 80 04/12/24 11:22 BP 110/66 04/12/24 11:22 Pulse Ox 96 04/12/24 11:22 Oxygen Delivery Method Room Air 04/12/24 11:22 BMI result Body Mass Index 39.3 Assessment & Plan Assessment & Plan (1) URI (upper respiratory infection): Code(s): J06.9 - Acute upper respiratory infection, unspecified Qualifiers: URI type: unspecified URI Qualified Code(s): J06.9 - Acute upper respiratory infection, unspecified Plan: Based on the current clinical assessment, diagnostic testing for influenza, COVID-19, and RSV was conducted. A viral etiology is suspected; therefore, no antibiotics were prescribed at this time. The patient was prescribed Tessalon Perles for nocturnal cough suppression and advised to use xain-vup-xcdcaum decongestants during the daytime. Further management includes increasing fluid intake and rest. A nasal saline spray was recommended with instructions for safe preparation and use. Emphasis was placed on monitoring for worsening respiratory symptoms that may require further medical evaluation. Patient was informed and verbally consented to the use of an ambient scribe for clinic note documentation during this visit Orders: Orders SARS-CoV2/FLU/RSV Today R09.89 - Other specified symptoms and signs involving the circulatory and respiratory systems Medications: New benzonatate 200 mg PO TID PRN 14 caps 0RF cough Coding Level of Care Code Est Pt Level 3 (70610) Diagnoses Upper respiratory tract infection, unspecified type J06.9 URI type: unspecified URI
[2024-04-12 11:22] VITALS: BP 110/66; PULSE 80; O2SAT 96; BMI 39.3
--- OUTSIDE RECORDS SUMMARY | 2024-04-12 12:49 | XMS_ITS | Data Portability ---
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 Plan of Treatment Reminders Order Date Submit Date Provider Last Modified By Organization Details Last Modified Time Details Appointments None recorded. Lab None recorded. Referral None recorded. Procedures None recorded. Surgeries None recorded. Imaging None recorded. Medication Orders triamcinol one acetonide 0.1 % lotion 2017 018 INTERFACE [id number], [address], [place], [phone], 8 14:22:00 Patient TargetsNo targets recorded. Patient Instructions Encounter Date Encounter Id Patient Instructions Last Modified By Organization Details Last Modified Time 01/18/2018 [id number] TREATMENT: PVD Footcare: Exam patient from pedal standpoint. Document findings in the medical record. Discuss with the patient proper footcare in prevention of common vascularly insufficient pedal problems. The patient has completed a history of physical form which was examined and discussed, as well as entered into the chart on this office visit. The past medical history, surgical history, medications, allergies, family and social history were reviewed. With regard to the onychomycotic toenails--Due to the fact that the patient may not want to treat with oral systemic medication, I recommend a course of topical antifungal to the nail plates (Vicks or Formula #3) with routine debridement of the thickness/fungal surface of the nail plate. The patient was made to understand that the medication is not FDA approved for toenail treatment. The patient was informed of Medicare regulations regarding covered foot care. The patient was told that the toenails must demonstrate clinical evidence of mycosis and she must have associated due to the thickness of the nail plates. If the culture prove to be (-), the patient will not be eligible for coverage under Medicare guidelines and will be responsible for office visit payment. Non-anesthesia, slant back, partial nail avulsion performed sharply to the tolerance of the patient, {{Lt.* Rt. BL}} Hallux, {{Medial Lateral b ilateral*}} nail border with curette of the subungal debris/callus. (-) purulent drainage expression noted. (+) nucleated callus noted within the nail groove after resection of the incurvated nail plate. (-) dressings required. Conservative debridement of painful hyperkeratotic tissue lesions performed with sterile 6400 blade following alcohol swab of the site. No dressings necessary. Reduce the excessively elongated, clinically apparent mycotic toenails 1-5 BL with nail clippers and electric italia to the point of imminent bleeding but not past this point due to the risk of complications. Application of topical betadine solution to the nail plates. No dressings necessary. Due to the fact that the patient may not want to treat with oral systemic medication, I recommend a course of topical antifungal to the nail plates (Vicks or Formula #3) with routine debridement of the thickness/fungal surface of the nail plate. The patient was made to understand that the medication is not FDA approved for toenail treatment. Discuss the clinical findings and treatment options including conservative and surgical options of the underlying bony deformity associated with the callus (plantarflexed metatarsal). Due to associated minimal pain, suspect vascular status, and likely satisfaction with routine conservative debridement-- no surgery is indicated. Conservative debridement of painful hyperkeratotic tissue lesions performed with sterile 6400 blade following alcohol swab of the site. No dressings necessary. [email or web address] Not available 01/18/2018 14:04:47 Reason for Referral None Reported. Problems No Known Problems Medical Equipment None Reported. Allergies No known drug allergies Medications Name Sig Start Date Stop Date Status Note LastModified by Organization Details LastModified Time fluoxetine 40 mg capsule active Not Available Not Available N ot Available doxycycline hyclate 100 mg capsule active Not Available Not Available Not Available simvastatin 80 mg tablet active Not Available Not Available No t Available tamsulosin 0.4 mg capsule active Not Available Not Available N ot Available cephalexin 500 mg capsule active Not Available Not Available N ot Available polymyxin B sulfate 10,000 unit-trimethop rim 1 mg/mL eye drops active Not Available Not Available No t Available balsalazide 750 mg capsule active Not Available Not Availab le Not Available triamcinolone acetonide 0.1 % lotion APPLY A THIN LAYER TO THE AFFECTED AREA(S) BY TOPICAL ROUTE 2 TIMES PER DAY 2017 active Not Available Not Available Not Avai lable bupropion HCl XL 150 mg 24 hr tablet, extended release active Not Available Not Available Not Available topiramate 50 mg tablet active Not Available Not Available No t Available Vitals Date Recorded Body weight Body mass index (BMI) Body height Systolic blood pressure Diastolic blood pressure Provider Name and Address Organization Details Last Updated DateTime 01/18/2018 238630.1 3 g 35.2 kg/m2 177.8 cm 130 mm[Hg] 70 mm[Hg] maine ashton [place] - [facility] 8 13:10:34 Social History Question Answer Notes LastModified by Organizat ion Details LastModified Time Tobacco Smoking Status Former Smoker Not Available [facility] 01/23/2020 03:19:04 DATE LAST SEEN BY PCP 07/21/2017 [email or web address] Information not available 01/18/2018 What Was The Date Of Your Most Recent Tobacco Screening? 01/18/2018 [id number] Information not available 01/23/2020 Sex: Unknown Functional Status None recorded. Mental Status None recorded. Family History Nothing Reported Notes:circ problems in legs, flatfeet, Medical History Condition Response Anemia Y Arthritis Y Hypertension Y Past Encounters Encounter ID Performer Location Encounter Start Date Encounter Closed Date Diagnosis/Indication Diagnosis SNOMED-CT Code Diagnosis ICD10 Code Diagnosis Note [id number] Cricket Escalante DPM [facility] [address] [place] [address] 01/18/2018 13:06:24 01/18/2018 14:31:22 Atherosclerosis of arteries of the extremities 62850467 I70.209 Onychomyco sis due to dermatophyte 876243981 B35.1 Deformity of foot 301681 004 M21.969 Corns and callus 9272485 00 L84 Pain in lower limb 75640 006 M79.669 Stasis dermatitis 893352 05 I87.2 Health Concerns Section Related Observation LastModified by Organization Detai ls LastModified Time None Recorded Concern Status LastModified by Organization Details LastModified Time None Recorded Advance Directives Directive None Recorded Payers Encounter Date Sequence Insurance Name Policy Number Policy Kelley Covered Member ID Kelley Member ID Guarantor Name 01/18/2018 1 [place] [employer] Jonah Bond [id number] Jonah Bond 01/18/2018 2 [facility] (MEDICARE SUPPLEMENT) Jonah Bond [id number] Jonah Bond Notes Date Note Type Note Provider Name and Address Organization Details Recorded Time 01/18/2018 text/html Mycotic nail careReported bypatient.Location: bilateral (severe callus plantar aspect of the 5th MTPJ region.); toenails left 5; toenails right 5 Quality:constant Severity:moderate Duration:several years; continuous since onset Timing:chronic Context:difficulty finding comfortable shoes Alleviating Factors:nothing helps Aggravating Factors:weightbeari ng; occuring with exercise; precipitated by wearing shoes Associated Symptoms:swelling;p ain with direct compression Previous Surgery:none Previous Treatment:nonePodia try ToesReported bypatient.Location: bilateral; deep; planar; Plantar aspect of the 1st metatarsal head Quality:aching; throbbing; sharp Severity:moderate Duration:several years; continuous since onset Timing:chronic Context:sports injury Alleviating Factors:nothing helps Aggravating Factors:cannot identify Associated Symptoms:no weakness; no numbness; no swelling; no redness; no warmth; no ecchymosis; no catching/locking; no popping/clicking; no grinding; no instability; no radiation down leg; no drainage; no fever; no chills; no weight loss; no change in bowel/bladder habits; no tingling;buckling; 2nd, 3rd toes Previous Surgery:none Prior Imaging:none Previous Injections:none Previous PT:none INITIAL presentation to our office for obvious PVD affected foot exam and education regarding foot care. The patient notes specific pain in the feet on presentation--corre sponding to a plantar corn on the Lt. foot that does get irritated with shoegear use. The patient notes that the thickness of the toenails and length cause a significant amount of pain with weightbearing at this time. Cricket Escalante, LI [address] [place], [address], [facility] [place]. 01/18/2018 14:21:56
== END 2024-04-12 12:11 | disposition home or self-care (01) ==
PROVIDERS: PCP Nurse Practitioner Family; Visit Provider Physician Assistant
DX: J06.9 Acute upper respiratory infection, unspecified (principal)

== ENCOUNTER 2024-04-17 09:57 | Outpatient (AMB) | payer MEDICARE, OTHER, SELFPAY ==
--- NOTE | 2024-04-17 10:02 | MHC.OFFWIV ---
Intake Vital Signs 04/17/24 10:03 Weight 265 lb BP 110/74 Blood Pressure Location Rt brachial Position Sitting Pulse 100 Pulse Source Pulse Oximeter Temp 98.8 F Temp Source Oral Pulse Oximetry (%) 98 Oxygen Delivery Method Room Air Intake Visit Reasons: EP-running nose, flame, sore throat Intake Note: Patient here sneezing, congestion and chest congestion that has been present for almost 2 weeks. Patient Tobacco Use Status: Former Tobacco user Allergies oatmeal Allergy (Unknown, Uncoded 04/17/24 10:04) hives Do you need a note to return to daycare/school/sports/work: No HPI HPI Comments History of Present Illness Details History - The patient is a 74-year-old male presenting with worsening upper respiratory symptoms, chest congestion, and nasal obstruction x 10 days - Symptoms onset roughly eight days ago with runny nose and progressed to nasal and chest congestion. - Reports green phlegm, nasal obstruction, and disrupted sleep due to congestion. - Tessalon Perles prescribed previously showed no noticeable effect. - Reports progressively worsening symptoms, along with mild sore throat, slight shortness of breath, and ear tenderness. - No fevers were reported, and the patient's vitals were stable. - The patient has history of atrial fibrillation, managed with clopidogrel, and experiences dizziness occasionally upon standing. Physical Exam General: Cooperative, healthy appearing, comfortable and no acute distress Orientation/consciousness: Patient oriented x3 Limitations: No limitations Head: Normal to inspection Ears: Hearing grossly normal bilaterally, external ears normal and TM's effusion of left TM, right TM blocked by cerumen, clear after flusing Nose: Normal external nose present, Normal nares present and Nasal congestion present Face and sinus: Normal facial exam and Yes sinuses nontender Mouth: Normal oral and palatal mucosa present and moist mucous membranes Throat: Yes tonsils normal, Yes uvula midline. Posterior oropharynx erythema Eyes: Appearance normal, both eyes and all related structures Neck: Normal visual inspection Respiratory: Vesicular with exp wheezes to auscultation bilaterally. Normal respiratory effort, able to speak in complete sentences, Actively coughing, no respiratory distress, not tachypneic, no tripod positioning and no use of accessory muscles. Cardiovascular: Irregular rate and rhythm. Normal S1 and S2 Skin: No rashes or lesions noted Neuro: Patient oriented x3 Extremities: Normal to inspection and Yes no clubbing, cyanosis or edema [facility] Medical History Presence of Watchman left atrial appendage closure device RANULFO (obstructive sleep apnea) BPH (benign prostatic hyperplasia) New onset a-fib Foreign body of finger of right hand Left anterior fascicular block (LAFB) Iron deficiency Depression Vertebral compression fracture PLMD (periodic limb movement disorder) PVD (peripheral vascular disease) Dyslipidemia HTN (hypertension) Crohn's disease Venous insufficiency of both lower extremities Surgical History History of cholecystectomy Status post endovenous radiofrequency ablation (RFA) of saphenous vein Family History Father Cancer of prostate Mother Anxiety Sister Breast cancer Sister Nephritis Sister No problems noted. Sister No problems noted. Sister No problems noted. Daughter Substance use disorder Mental health disorder Daughter No problems noted. Daughter No problems noted. Brother No problems noted. Brother No problems noted. Brother Epilepsy Paternal Grandfather Substance use disorder Social History Housing: House Alcohol intake: never Patient Tobacco Use Status: Former Tobacco user Years Smoked: 50 years ago e-Cigarette/Vaping Use: Never Used Second Hand Smoke Exposure: No service: Yes Current occupational status: retired Cognitive needs: No Hearing needs: No Vision needs: No Review of Systems Const All systems reviewed & are unremarkable except as noted in HPI and below Physical Exam Vital Signs: Last Vital Signs Temp 98.8 F 04/17/24 10:03 Pulse 100 04/17/24 10:03 BP 110/74 04/17/24 10:03 Pulse Ox 98 04/17/24 10:03 Oxygen Delivery Method Room Air 04/17/24 10:03 Office Procedures Cerumen Removal From which ear canal was the cerumen removed: left Removal: irrigation and otoscope w/curette Notes: patient tolerated procedure well, no complications and ear canal clear [id number] Irrigation/Lavage Assessment & Plan Assessment & Plan (1) URI (upper respiratory infection): Code(s): J06.9 - Acute upper respiratory infection, unspecified Qualifiers: URI type: unspecified URI Qualified Code(s): J06.9 - Acute upper respiratory infection, unspecified Plan: Treatment for the suspected community-acquired pneumonia will include an azithromycin course, alongside a prednisone burst to reduce wheezing and lung inflammation. I addressed the cerumen impaction through irrigation, resulting in improved hearing. A chest x-ray was ordered to confirm potential pneumonia, with Augmentin RX to be considered based on results. Inei-lbs-eqliojf medications, such as Mucinex DM, were recommended for congestion relief. My interpretation of CXR showed bibasilar opacities, so RX for Augmentin was sent to treat for CAP. I advised the patient to continue clopidogrel for atrial fibrillation management, with current monitoring indicating a controlled heart rate of 96 bpm. I educated the patient about noticing signs of potential atrial fibrillation with RVR exacerbation requiring urgent attention, including any significant dizziness or shortness of breath spurts. Encouraged pt to follow up with [employer] Professor about rate and occasional symptoms. Patient was informed and verbally consented to the use of an ambient scribe for clinic note documentation during this visit (2) Impacted cerumen of left ear: Code(s): H61.22 - Impacted cerumen, left ear Plan: Flushed and cleared. Orders: Orders SARS-CoV2/FLU/RSV Today J06.9 - Acute upper respiratory infection, unspecified XR chest 2V Today R05.9 - Cough, unspecified Medications: New azithromycin For 250 mg dose pack: take 500 mg today (day 1), then 250 mg for 4 days (days 2-5) PO 6 tabs 0RF prednisone 40 mg (2 x 20 mg) PO DAILY 10 tabs 0RF amoxicillin-pot clavulanate 875-125 mg 1 tab PO Q12H 14 tabs 0RF Coding Level of Care Code Est Pt Level 4 (14112) Diagnoses Upper respiratory tract infection, unspecified type J06.9 URI type: unspecified URI Impacted cerumen of left ear H61.22 CPT Codes Office Procedure - CPT: 13044-Dnf Irrigation/Lavage ([id number])
[2024-04-17 10:03] VITALS: BP 110/74; PULSE 100; TEMP 37.1; O2SAT 98
--- OUTSIDE RECORDS SUMMARY | 2024-04-17 10:24 | XMS_ITS | Data Portability ---
Author Organization [facility], [address] Address [address] [place] [address] Care Team Providers Care Electrical Products Engineer Name Role Phone MARIAH DSOUZA Primary Care Provider [phone] Assessment No assessment recorded. Plan of Treatment Reminders Order Date Submit Date Provider Last Modified By Organization Details Last Modified Time Details Appointments None recorded. Lab None recorded. Referral emergency medicine referral - Chest pain started today, constant, Abnormal EKG, Afib . need further evaluation and treatment. 2022 023 [email or web address] 26 [facility], [address] [place] [address], [phone], 3 09:04:02 Procedures None recorded. Surgeries None recorded. Imaging electrocard iogram 2022 023 [email or web address] 106 [facility], [address] [place] [address], [phone], 3 09:27:26 Medication Orders Children's Aspirin 81 mg chewable tablet 2022 023 [email or web address] Not available 09:24:46 Patient TargetsNo targets recorded. Patient Instructions Encounter Date Encounter Id Patient Instructions Last Modified By Organization Details Last Modified Time 05/24/2022 [id number] chest pain: care instructions [email or web address] Not available 05/24/2022 09:17:02 If you have any kind of chest discomfort, even if it is difficult to describe (sometimes it can feel like bloating or nausea), and especially if the pain radiates down either arm, to the back, or up your neck or if it is associated with sweating, trouble breathing, dizziness, or nausea/vomiting, please go directly to the Emergency Room (ER) to be checked out. The ER is the only place that can completely rule out a heart attack or blood clot in your lungs. Abnormal-appearin g EKG . [email or web address] Not available 05/24/2022 09:31:22 Reason for Referral Emergency Medicine Referral for Chest pain Chest pain started today, constant, Abnormal EKG, Afib . need further evaluation and treatment. Chest pain started today, constant, Abnormal EKG, Afib . need further evaluation and treatment. Referring Physician: Parag Dudley, Urgent Care, Encounter Date: 05/24/2022 Results Created Date Observation Date Name Description Value Unit Range Abnormal Flag Note LastModifiedBy Organization Detail LastModifiedTime 05/24/1905/24/2022 delvis cornell am No observ ation record ed. [email or web address] [address], [address], 05/24/2022 09:20:51 Result Notes None recorded. Problems Name Problem SNOMED Code Status Onset Date Resolution Date Notes Provider Name and Address Organization Details Recorded Time Hypertensive disorder 22506933 Active 2022 Shannen ortiz, PA - [facility] 3 08:53:36 Hypercholestero lemia 80646860 Active 2022 Shannen ortiz, PA - [facility] 3 08:53:43 Crohn's disease 51564758 Active 2022 Shannen Sanchez null, PA - [facility] 3 08:53:48 Depressive disorder 00951286 Active 2022 Shannen ortiz, PA - [facility] 3 08:53:57 Atrial fibrillation 52243399 Active 2022 Shannen ortiz, PA - [facility] 3 08:59:52 Problem Notes None recorded. Procedures Surgical History Date Name Laterality Status Provider Name and Address Organization Details Recorded Time tonsillectomy completed Shannen Sanchez PA - [facility] 05/24/2022 08:55:35 cholecystectomy completed Shannen ROSEN - [facility] 05/24/2022 08:55:42 ligation of varicose vein completed Shannen ROSEN - [facility] 05/24/2022 08:56:06 Imaging Results Imaging Date Name Status LastModified by Organization Details LastModified Time 05/24/2022 electrocardiogram completed [email or web address] [id number], [place], [address], 05/24/2022 09:20:51 Procedure Notes None recorded. Medical Equipment None Reported. Allergies No known drug allergies Medications Name Sig Start Date Stop Date Status Note LastModified by Organization Details LastModified Time acetaminoph en 500mg tab TAKE 2 TABLETS BY MOUTH EVERY 6 HOURS NEEDED FOR PAIN active Not Available Not Available No t Available fluoxetine 40 mg capsule TAKE 2 CAPSULES BY MOUTH IN THE MORNING active Not Available Not Available No t Available azithromyci n 250 mg tablet TAKE 2 TABLETS BY MOUTH ON DAY 1, AND THEN TAKE 1 TABLET BY MOUTH ONCE A DAY ON DAY 2 THROUGH DAY 5 05/24 completed Not Available Not Available Not Available prednisone 20 mg tablet TAKE 2 TABLETS BY MOUTH ONCE DAILY FOR 5 DAYS 05/24 completed Not Available Not Available Not Available Children's Aspirin 81 mg chewable tablet Chew 2 tablets every day by oral route as directed for 1 day. 2022 active Not Available Not Available Not Avai lable metronidazo le 500 mg tablet TAKE 1 TABLET BY MOUTH EVERY 8 HOURS FOR 7 DAYS 05/24 completed Not Available Not Available Not Available ciprofloxac in 500 mg tablet TAKE 1 TABLET BY MOUTH TWICE DAILY 05/24 completed Not Available Not Available Not Available tramadol 50 mg tablet TAKE 1 TABLET BY MOUTH TWICE DAILY FOR 7 DAYS 05/24 completed Not Available Not Available Not Available tamsulosin 0.4 mg capsule TAKE 2 CAPSULES BY MOUTH ONCE DAILY active Not Available Not Available No t Available balsalazide 750 mg capsule TAKE 3 CAPSULES BY MOUTH THREE TIMES DAILY 05/24 completed Not Available Not Available Not Available hydrochloro thiazide 25 mg tablet TAKE 1 TABLET BY MOUTH ONCE DAILY IN THE MORNING 05/24 completed Not Available Not Available Not Available metoprolol succinate ER 25 mg tablet,exte nded release 24 hr TAKE 1 TABLET BY MOUTH ONCE DAILY IN THE MORNING . DO NOT CRUSH OR CHEW active Not Available Not Available No t Available rosuvastati n 5 mg tablet TAKE 1 TABLET BY MOUTH ONCE DAILY active Not Available Not Available No t Available bupropion HCl XL 300 mg 24 hr tablet, extended release TAKE 1 TABLET BY MOUTH ONCE DAILY active Not Available Not Available No t Available Vitals Date Recorded Body height Provider Name an d Address Organization Details Last Updated DateTime 05/24/2022 177.8 cm Shannen Sanchez PA - [facility] 05/24/2022 08:56:18 Date Recorded Body mass index (BMI) Body weight Provider Name and Address Organization Details Last Updated DateTime 05/24/2022 34.4 kg/m2 144134.17 g Shannen Sanchez PA - [facility] 05/24/2022 08:56:25 Date Recorded Pain severity - 0-10 verbal numeric rating [Score] - Reported Provider Name and Address Organization Details Last Updated DateTime 05/24/2022 2 Shannen Sanchez PA - [facility] 05/24/2022 08:56:33 Date Recorded Oxygen saturation Oxygen saturation in Arterial blood by Pulse oximetry Provider Name and Address Organization Details Last Updated DateTime 05/24/2022 98 % 98 % Shannen Sanchez PA - [facility] 05/24/2022 08:57:59 Date Recorded Heart rate Provider Name an d Address Organization Details Last Updated DateTime 05/24/2022 91 /min Shannen Sanchez PA - [facility] 05/24/2022 08:58:04 Date Recorded Respiratory rate Provider Name a nd Address Organization Details Last Updated DateTime 05/24/2022 18 /min Shannen Sanchez PA - [facility] 05/24/2022 08:58:06 Date Recorded Body temperature Provider Name a nd Address Organization Details Last Updated DateTime 05/24/2022 98 [degF] Shannen Sanchez PA - [facility] 05/24/2022 08:58:18 Date Recorded Systolic blood pressure Diastolic blood pressure Provider Name and Address Organization Details Last Updated DateTime 05/24/2022 116 mm[Hg] 74 mm[Hg] Shannen Sanchez SILAS - [facility] 05/24/2022 08:57:55 Social History Question Answer Notes LastModified by Organizat ion Details LastModified Time Tobacco Smoking Status Former Smoker 60 years ago Shannen Sanchez SILAS ortiz [facility] 05/24/2022 08:55:07 What Is Your Level Of Alcohol Consumption? None Information not available 05/24/2022 Do You Use Any Illicit Or Recreational Drugs? No Information not available 05/24/2022 Have You Recently Traveled Abroad? No Information not available 05/24/2022 Do You Or Have You Ever Used Any Other Forms Of Tobacco Or Nicotine? No Information not available 05/24/2022 Sex: Unknown Functional Status None recorded. Mental Status None recorded. Family History Relationship Description Onset Age of this Age Resolved Age Notes LastModified by Organization Details LastModified Time Sister Malignant tumor of breast emonfette Not available 2022 08:54:36 Brother SARS-CoV-2 emonfette Not avail able 05/24/2022 08:54:45 Medical History No medical history recorded. Past Encounters Encounter ID Performer Location Encounter Start Date Encounter Closed Date Diagnosis/Indication Diagnosis SNOMED-CT Code Diagnosis ICD10 Code Diagnosis Note [id number] [facility] [address] [place] [address] 08/14/2017 08:55:53 08/14/2017 09:37:48 [id number] [facility] [address] [place] [address] 01/06/2021 16:43:45 01/06/2021 18:38:17 [id number] Parag Dudley NP [address] [facility] [address] [place] [address] 05/24/2022 08:45:59 05/24/2022 09:27:26 Chest pain 42917295 R07.9 Paroxysmal atrial fibrillation 780636508 I48.0 AMA signed . refused Ambulance transfer. strongly encouraged to go straight to ED. [facility] ED notified about expected arrival. Health Concerns Section Related Observation LastModified by Organization Detai ls LastModified Time None Recorded Concern Status LastModified by Organization Details LastModified Time None Recorded Advance Directives Directive None Recorded Payers Encounter Date Sequence Insurance Name Policy Number Policy Kelley Covered Member ID Kelley Member ID Guarantor Name 08/14/2017 1 [place] [facility] Jonah Bond [id number] 2 Jonah Bond 08/14/2017 2 [facility] Jonah Bond [id number] Jonah Bond 01/06/2021 1 [place] [facility] Jonah Bond [id number] Jonah Bond 01/06/2021 2 [facility] Jonah Bond [id number] Jonah Correa Varun 05/24/2022 1 [place] [facility] Jonah Bond [id number] 2 Jonah Correa Varun 05/24/2022 2 [facility] Jonah Bond [id number] Jonah Bond Notes Date Note Type Note Provider Name and Address Organization Details Recorded Time 3 text/html Chest PainReported bypatient.source of patient informationInformation obtained from patient; Patient arrived at Urgent Care ambulatory; learning styles: auditory Location:chest; left arm Quality:pressure;tightness; aching Severity:moderate Duration:lasts hours Onset/Timing:abrupt onset without warning Context:at rest Alleviating Factors:nothing gives relief Aggravating Factors:worse with activity Associated Symptoms:no dyspnea; no decrease in exercise capacity; no fatigue; no nocturnal episodes; no resting episodes; no associated dizziness;chest discomfort;palpitations Parag Dudley NP [address] [place], [address], [place] - [facility] 05/24/2022 09:33:38
--- OUTSIDE RECORDS SUMMARY | 2024-04-17 10:25 | XMS_ITS | Data Portability ---
Author Organization [facility]ON [facility], [employer] Address [address] [place] [address] Care Team Providers Care Choir Leader Name Role Phone JESSICA DENSON Primary Care Provider JESSICA DENSON Referring Provider Assessment No assessment recorded. Plan of Treatment Reminders Order Date Submit Date Provider Last Modified By Organization Details Last Modified Time Details Appointments None recorded. Lab None recorded. Referral None recorded. Procedures None recorded. Surgeries None recorded. Imaging None recorded. Medication Orders triamcinol one acetonide 0.1 % lotion 2017 018 INTERFACE [employer] [id number], [address] [place], [place], [id number], 8 14:22:00 Patient TargetsNo targets recorded. Patient Instructions Encounter Date Encounter Id Patient Instructions Last Modified By Organization Details Last Modified Time 01/18/2018 [id number] TREATMENT: PVD Footcare: Exam patient from pedal [...] Address Organization Details Last Updated DateTime 01/18/2018 071419.1 3 g 35.2 kg/m2 177.8 cm 130 mm[Hg] 70 mm[Hg] maine ashton [place] - [facility] 8 13:10:34 Social History Question Answer Notes LastModified by Organizat ion Details LastModified Time Tobacco Smoking Status Former Smoker Not Available [facility] 01/23/2020 03:19:04 DATE LAST SEEN BY PCP 07/21/2017 [email or web address] Information not available 01/18/2018 What Was The Date Of Your Most Recent Tobacco Screening? 01/18/2018 [id number] Information not available 01/23/2020 Sex: Unknown Functional Status None recorded. Mental Status None recorded. 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 342644690 B35.1 Deformity of foot 440916 004 M21.969 Corns and callus 0888206 00 L84 Pain in lower limb 70469 006 M79.669 Stasis dermatitis 370607 05 I87.2 Health Concerns Section Related Observation LastModified by Organization Detai ls LastModified Time None Recorded Concern Status LastModified by Organization Details LastModified Time None Recorded Advance Directives Directive None Recorded Payers Encounter Date Sequence Insurance Name Policy Number Policy Kelley Covered Member ID Kelley Member ID Guarantor Name 01/18/2018 1 [place] [employer] [facility] Jonah Bond [id number] 2 Jonah Bond 01/18/2018 2 [facility] (MEDICARE SUPPLEMENT) Jonah Bond [id number] Jonah Bond Notes Date Note Type [...] at this time. Cricket Escalante, [address] [place], [address], [facility] Calvillo [facility] [place]. 01/18/2018 14:21:56
== END 2024-04-17 10:34 | disposition home or self-care (01) ==
PROVIDERS: PCP Nurse Practitioner Family; Visit Provider Physician Assistant
DX: J06.9 Acute upper respiratory infection, unspecified (principal); H61.22 Impacted cerumen, left ear

== ENCOUNTER 2024-04-17 09:57 | Outpatient (REF) | payer MEDICARE, OTHER, SELFPAY | END 2024-04-17 09:58 | disposition home or self-care (01) | LOC: HO.LAB 09:57 | PROVIDERS: PCP Nurse Practitioner Family | DX: Z13.89 Encounter for screening for other disorder (principal) | CPT/HCPCS: 69210; 99212 ==

== ENCOUNTER → 2024-04-17 10:37 | Outpatient (BNV) | payer MEDICARE, OTHER, SELFPAY | PROVIDERS: PCP Nurse Practitioner Family; Visit Provider Radiology Diagnostic Radiology | DX: R05.9 Cough, unspecified (principal) | CPT/HCPCS: 71046 ==

== ENCOUNTER 2024-04-27 11:25 | Outpatient (REF) | payer MEDICARE, OTHER, SELFPAY ==
[2024-04-27 16:26] LABS: Influenza A PCR NEGATIVE (Negative); Influenza B PCR NEGATIVE (Negative); Resp Syncy Virus RNA Qual PCR NEGATIVE (Negative); SARS COV2 PCR INHOUSE NEGATIVE (Negative)
== END 2024-04-27 11:26 | disposition home or self-care (01) ==
LOC: HO.LAB 11:25
PROVIDERS: PCP Nurse Practitioner Family; Visit Provider Nurse Practitioner Family
DX: J06.9 Acute upper respiratory infection, unspecified (principal); R09.89 Other specified symptoms and signs involving the circulatory and respiratory systems
CPT/HCPCS: 0241U; 99212

== ENCOUNTER 2024-04-27 11:25 | Outpatient (AMB) | payer MEDICARE, OTHER, SELFPAY ==
--- NOTE | 2024-04-27 11:38 | MHC.OFFWIV ---
Intake Vital Signs 04/27/24 11:40 Weight 265 lb BP 110/60 Blood Pressure Location Lt brachial Position Sitting Pulse 94 Pulse Source Pulse Oximeter Temp 98.0 F Temp Source Oral Pulse Oximetry (%) 98 Oxygen Delivery Method Room Air Intake Visit Reasons: EP-dizziness, light headache, body weakness Intake Note: Patient here for body weakness, slight headache which has been going on for a couple of days. He states he came in on the and was treated for URI and was put on steroid and antibiotics. Patient Tobacco Use Status: Former Tobacco user Allergies oatmeal Allergy (Unknown, Uncoded 04/27/24 11:42) hives Do you need a note to return to daycare/school/sports/work: No HPI HPI Comments History of Present Illness Details 74 y/o male patient who presents to the walk in clinic with c/o URI symptoms. He was last seen here Mar for similar symptoms and treated for CAP with Augmentin, Zpack and Prednisone. Reports completeting the course with no symptom relief. Reports feeling weak, Fatigue, Dizzy, poor appetite and headaches. He has been since since the beginning of Mar. Last Chest Xray was negative. [facility] Medical History Presence of Watchman left atrial appendage closure device RANULFO (obstructive sleep apnea) BPH (benign prostatic hyperplasia) New onset a-fib Foreign body of finger of right hand Left anterior fascicular block (LAFB) Iron deficiency Depression Vertebral compression fracture PLMD (periodic limb movement disorder) PVD (peripheral vascular disease) Dyslipidemia HTN (hypertension) Crohn's disease Venous insufficiency of both lower extremities Surgical History History of cholecystectomy Status post endovenous radiofrequency ablation (RFA) of saphenous vein Family History Father Cancer of prostate Mother Anxiety Sister Breast cancer Sister Nephritis Sister No problems noted. Sister No problems noted. Sister No problems noted. Daughter Substance use disorder Mental health disorder Daughter No problems noted. Daughter No problems noted. Brother No problems noted. Brother No problems noted. Brother Epilepsy Paternal Grandfather Substance use disorder Social History Housing: House Alcohol intake: never Patient Tobacco Use Status: Former Tobacco user Years Smoked: 50 years ago e-Cigarette/Vaping Use: Never Used Second Hand Smoke Exposure: No service: Yes Current occupational status: retired Cognitive needs: No Hearing needs: No Vision needs: No Review of Systems Const All systems reviewed & are unremarkable except as noted in HPI and below Physical Exam Vital Signs: Last Vital Signs Temp 98.0 F 04/27/24 11:40 Pulse 94 04/27/24 11:40 BP 110/60 04/27/24 11:40 Pulse Ox 98 04/27/24 11:40 Oxygen Delivery Method Room Air 04/27/24 11:40 Const General: cooperative, ill appearing and tired appearing; No comfortable Nutritional Appearance: obese Orientation/consciousness: patient oriented x3 HEENT Head: Yes normocephalic Ears: external ears normal and TM's normal bilaterally General nose exam: Normal external nose present Face and sinus: Yes sinuses nontender Mouth: moist mucous membranes Throat: Yes posterior oropharynx normal and Yes uvula midline Resp Effort & Inspection: normal respiratory effort and able to speak in complete sentences Auscultation: clear to auscultation bilaterally Cardio Heart sounds: S1 normal heart sound present and S2 normal heart sound present Neuro General: patient oriented x3 Assessment & Plan Assessment & Plan (1) URI (upper respiratory infection): Code(s): J06.9 - Acute upper respiratory infection, unspecified Qualifiers: URI type: unspecified URI Qualified Code(s): J06.9 - Acute upper respiratory infection, unspecified Plan: Ordered SARs again today. Advised Pt to go to Emergency room for further evaluation and treatment. wants to bring tomorrow morning to ED. Possibly Viral illness vs Bacterial Not clear why he is not improving Orders: Orders SARS-CoV2/FLU/RSV Today R09.89 - Other specified symptoms and signs involving the circulatory and respiratory systems Coding Level of Care Code Est Pt Level 3 (71102) Diagnoses Upper respiratory tract infection, unspecified type J06.9 URI type: unspecified URI Time Spent (min) 15
[2024-04-27 11:40] VITALS: BP 110/60; PULSE 94; TEMP 36.7; O2SAT 98
--- OUTSIDE RECORDS SUMMARY | 2024-04-27 15:19 | XMS_ITS ---
Author Organization [facility] Address [address] [place] [address] Care Team Providers Care Medical Imaging Tech Name Role Phone MARIAH DSOUZA Primary Care Provider Steven Florence Unavailable [phone] ALLERGIES No Known Allergies REASON FOR VISIT [...] 05/13/2023 Encounters Encounter Location Date Provider Diagnosis [facility] [address] [place] [address] 05/13/2023 Steven Guan Crohns disease witho ut [...] 09:20:00 AM, [address], [address], [place], [address], Progress Notes * Examination Category Sub-Category Detail [...]
--- OUTSIDE RECORDS SUMMARY | 2024-04-27 15:19 | XMS_ITS ---
Author Organization [facility] Address [address] [place] [address] Care Team Providers Care Mines Safety Engineer Name Role Phone MARIAH DSOUZA Primary Care Provider Steven Florence Unavailable [phone] ALLERGIES No Known Allergies REASON FOR VISIT [...] 12/02/2023 Encounters Encounter Location Date Provider Diagnosis [facility] [address] [place] [address] 12/02/2023 Steven Guan Crohns disease witho ut [...] 09:20:00 AM, [address], [address], [place], [address], Progress Notes * Examination Category Sub-Category Detail [...]
--- OUTSIDE RECORDS SUMMARY | 2024-04-27 15:19 | XMS_ITS ---
Author Organization [facility] Address [address] [place] [address] Care Team Providers Care Motel Front Desk Attendant Name Role Phone MARIAH DSOUZA Primary Care Provider Steven Florence [phone] Encounters Encounter Location Date Provider Diagnosis [facility] [address] [facility] [address] [place] [address] 05/10/2023 Steven Guan PLAN OF TREATMENT Next Appt Details Provider Name:Steven Guan , 11/30/2024 09:20:00 AM, [address], [address], [place], [address],
--- OUTSIDE RECORDS SUMMARY | 2024-04-27 15:20 | XMS_ITS | Data Portability ---
Author Organization [facility] Boot[facility], [address] Address [address] [place] [address] Care Team Providers Care Purchasing Coordinator Name Role Phone MARIAH DSOUZA Primary Care Provider [phone] Assessment No assessment recorded. Plan of Treatment Reminders Order Date Submit Date Provider Last Modified By Organization Details Last Modified Time Details Appointments None recorded. Lab None recorded. Referral emergency medicine referral - Chest pain started today, constant, Abnormal EKG, Afib . need further evaluation and treatment. 2022 023 [email or web address] 26 [facility] Emergency Room, [address] [place] [address], [address], 3 09:04:02 Procedures None recorded. Surgeries None recorded. Imaging electrocard iogram 2022 023 [email or web address] 106 _[facility], [address] [place] [address], [address], 3 09:27:26 Medication Orders Children's Aspirin 81 mg chewable tablet 2022 023 [email or web address] Not available 09:24:46 Patient TargetsNo targets recorded. Patient Instructions Encounter Date Encounter Id Patient Instructions Last Modified By Organization Details Last Modified Time 05/24/2022 [id number] chest pain: care instructions [email or web address] Not available [...] am No observ ation record ed. [email or web address] [address], [address], 05/24/2022 09:20:51 Result Notes None recorded. Problems Name Problem SNOMED Code Status Onset Date Resolution Date Notes Provider Name and Address Organization Details Recorded Time Hypertensive disorder 15605290 Active 2022 Shannen ortiz, [place] - [facility] 3 08:53:36 Hypercholestero lemia 45114475 Active 2022 Shannen ortiz, [place] - [facility] 3 08:53:43 Crohn's disease 24024920 Active 2022 Shannen Sanchez null, [place] - [facility] 3 08:53:48 Depressive disorder 34624857 Active 2022 Shannen ortiz, PA - [facility] 3 08:53:57 Atrial fibrillation 62368683 Active 2022 Shannen ortiz, [place] - [facility] [...] Time 05/24/2022 electrocardiogram completed [email or web address] [address], [place], [address], 05/24/2022 09:20:51 Procedure Notes None recorded. Medical [...] Details Last Updated DateTime 05/24/2022 34.4 kg/m2 252937.17 g Shannen Sanchez PA - [facility] [...] SNOMED-CT Code Diagnosis ICD10 Code Diagnosis Note [id number] [address] [address] [place] [address] 08/14/2017 08:55:53 08/14/2017 09:37:48 [id number] [facility] [address] [place] [address] 01/06/2021 16:43:45 01/06/2021 18:38:17 [id number] Parag Dud[place] [address] [facility] [address] [place] [address] 05/24/2022 08:45:59 05/24/2022 09:27:26 Chest pain 86791354 R07.9 Paroxysmal atrial fibrillation 480789948 I48.0 AMA signed . refused Ambulance transfer. strongly encouraged to go straight to ED. [facility] ED notified about expected arrival. Health Concerns Section Related Observation LastModified by Organization Detai ls LastModified Time None Recorded Concern Status LastModified by Organization Details LastModified Time None Recorded Advance Directives Directive None Recorded Payers Encounter Date Sequence Insurance Name Policy Number Policy Kelley Covered Member ID Kelley Member ID Guarantor Name 08/14/2017 1 [place] [facility] Jonah Bond [id number] 2 Jonah Bond 08/14/2017 2 [facility] Jonah Bond [id number] Jonah Bond 01/06/2021 1 [place] [facility] Joanh Bond [id number] 2 Jonah Bond 01/06/2021 2 [facility] Jonah Bond [id number] Jonah Correa Varun 05/24/2022 1 [place] [facility] Jonah Bond [id number] 2 Jonah Correa Varun 05/24/2022 2 [facility] Jonah Bond [id number] Jonah Bond Notes Date Note Type [...] Dudley NP [address] [place], [address], [place] - [facility] 05/24/2022 09:33:38
--- OUTSIDE RECORDS SUMMARY | 2024-04-27 15:20 | XMS_ITS | Data Portability ---
Author Organization JASON Mari Macedo [facility]arc[facility], autoContract Address [address] [place] [address] Care Team Providers Care Corporate Relations Manager Name Role Phone JESSICA DENSON Primary Care Provider [phone] JESSICA DENSON Referring Provider Assessment No assessment recorded. Plan of Treatment Reminders Order Date Submit Date Provider Last Modified By Organization Details Last Modified Time Details Appointments None recorded. Lab None recorded. Referral None recorded. Procedures None recorded. Surgeries None recorded. Imaging None recorded. Medication Orders triamcinol one acetonide 0.1 % lotion 2017 018 INTERFACE [id number], [address] [place], [place], [id number], 8 14:22:00 Patient TargetsNo targets recorded. Patient Instructions Encounter Date Encounter Id Patient Instructions Last Modified By Organization Details Last Modified Time 01/18/2018 [id number] TREATMENT: PVD Footcare: Exam patient from pedal [...] Address Organization Details Last Updated DateTime 01/18/2018 348577.1 3 g 35.2 kg/m2 177.8 cm 130 mm[Hg] 70 mm[Hg] maine ashton [place] - [facility] 8 13:10:34 Social History Question Answer Notes LastModified by Organizat ion Details LastModified Time Tobacco Smoking Status [facility]oker Not [facility] 01/23/2020 03:19:04 DATE LAST SEEN BY PCP 07/21/2017 [email or web address] Information not available 01/18/2018 What Was The Date Of Your Most Recent Tobacco Screening? 01/18/2018 [id number] Information not available 01/23/2020 Sex: Unknown Functional Status None recorded. Mental Status None recorded. 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 850327126 B35.1 Deformity of foot 630051 004 M21.969 Corns and callus 5927121 00 L84 Pain in lower limb 86038 006 M79.669 Stasis dermatitis 778537 05 I87.2 Health Concerns Section Related Observation LastModified by Organization Detai ls LastModified Time None Recorded Concern Status LastModified by Organization Details LastModified Time None Recorded Advance Directives Directive None Recorded Payers Encounter Date Sequence Insurance Name Policy Number Policy Kelley Covered Member ID Kelley Member ID Guarantor Name 01/18/2018 1 [place] [employer] Jonah Bond [id number] 2 Jonah Bond 01/18/2018 2 [facility] (MEDICARE SUPPLEMENT) Jonah Bond [id number] Jonah Bond Notes Date Note Type [...] at this time. Cricket Escalante, LI [address] [place], [address], JASON [facility]villo [facility], PEmanuel. 01/18/2018 14:21:56
--- OUTSIDE RECORDS SUMMARY | 2024-04-27 15:20 | XMS_ITS | Patient Health Record ---
Author Organization [facility] Address [address] [place] [address] Care Team Providers Care Peanut Picker Name Role Phone MARIAH DSOUZA Primary Care Provider Steven Florence Unavailable [phone] ALLERGIES No Known Allergies REASON FOR REFERRAL No Information MEDICATIONS Medication SIG (Take, Route, Frequency, Duration) Notes Start Date End Date Status Clopidogrel Bisulfate 75 MG TAKE 1 TABLET BY MOUTH EVERY DAY Oral for 30 Active Metoprolol Succinate ER 25 MG TAKE [...] Orally Once a day Starting 05/20/2022 Active Lialda 1.2 GM TAKE FOUR TABLETS BY MOUTH DAILY for 90 Active buPROPion HCl ER (XL) 150 MG [...] unspecified gastrointestinal tract location (K50.90) Active confirmed 24948760 Problem Crohn''s disease of large intestine without complication (K50.10) Active confirmed 2062959 Problem Rectal bleeding (K62.5) Active confirmed 30524792 Problem Diarrhea, unspecified type (R19.7) Active confirmed 77346280 Problem Crohn's disease of colon (K50.10) Active confirmed Crohn's disea se of colon (64385801) Problem Diverticulosis of large intestine without perforation or abscess without bleeding (K57.30) Active confirmed Diverticul ar disease of colon (794037622) VITAL SIGNS Temperature 97.5 degrees Fahrenheit 05/13/2023 Blood pressure diastolic 00 mm Hg 12/02/2023 Height 70 in 12/02/2023 Blood pressure systolic 00 mm Hg 12/02/2023 Weight 267 lbs 12/02/2023 BMI 38.31 kg/m2 12/02/2023 Encounters Encounter Location Date Provider Diagnosis [facility] [address] [place] [address] 05/13/2023 Steven Guan Crohns disease witho ut complication, unspecified gastrointestinal tract location K50.90 and Rectal bleeding K62.5 [facility] [address] [place] [address] Drive [address] [place] [address] 12/02/2023 Steven Guan Crohns disease witho ut complication, unspecified gastrointestinal tract location K50.90 [facility] [address] [place] [address] 04/30/2023 Steven Guan [facility] [address] [place] [address] 05/10/2023 Steven Guan ASSESSMENTS Encounter Date Diagnosis [...] Name:Steven Guan , 11/30/2024 09:20:00 AM, [address], [address], [place], [address], Insurance Providers Payer Name Payer Address Payer Phone Subscriber Number Group Number Insured Name Patient Relationship to Insured Coverage Start Date Coverage End Date MEDICARE OF [place] [address] [place] [address] [id number] SEDA BOND Self - patient is the insured [employer] [address] [place] [address] [phone] [id number] SEDA BOND Self - patient is the insured MEDICAL (GENERAL) HISTORY Medical History History ICD Code Denies RI,DM,CVA,Lung disease,renal dise ase Crohn's colitis diagnosed in [...] and there was no H. 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 Biopsies throughout the colon were negative for any colitis and dysplasia Watchman procedure placed in 08/2023 at [facility]--Coumadin was stopped and he was started on Plavix, along with his aspirin. He is scheduled for a ELIANA on 12/16/2023 at [facility] Surgical History Surgery Date(Month/Year) Cholecystectomy Back surgery Vein surgery of LE's 04/2018 and 05/2018
== END 2024-04-27 12:56 | disposition home or self-care (01) ==
PROVIDERS: PCP Nurse Practitioner Family; Visit Provider Nurse Practitioner Family
DX: J06.9 Acute upper respiratory infection, unspecified (principal)

== ENCOUNTER 2024-05-23 08:04 | Outpatient (AMB) | payer MEDICARE, OTHER, SELFPAY ==
--- OUTSIDE RECORDS SUMMARY | 2024-05-23 08:12 | XMS_ITS ---
Author Organization [facility] Address [address] [place] [address] Care Team Providers Care Temperature Regulator Name Role Phone MARIAH DSOUZA Primary Care Provider Steven Florence Unavailable [phone] ALLERGIES No Known Allergies REASON FOR VISIT [...] No Points 0 Interpretation Negative VITAL SIGNS Temperature 97.5 degrees Fahrenheit 05/13/19 24 Blood pressure systolic 00 mm Hg 05/13/19 24 Blood pressure diastolic 00 mm Hg 024 Height 70 in 05/13/2023 Weight 270 lbs 05/13/2023 BMI 38.74 kg/m2 05/13/2023 Encounters Encounter Location Date Provider Diagnosis [facility] [address] [place] [address] 05/13/2023 Steven Guan Crohns disease witho ut [...] 09:20:00 AM, [address], [address], [place], [address], Progress Notes * Examination Category Sub-Category Detail [...]
--- OUTSIDE RECORDS SUMMARY | 2024-05-23 08:12 | XMS_ITS ---
Author Organization [facility] Address [address] [place] [address] Care Team Providers Care Helpdesk Administrator Name Role Phone MARIAH DSOUZA Primary Care Provider Steven Florence [phone] Encounters Encounter Location Date Provider Diagnosis [facility] [address] [place] [address] 05/10/2023 Steven Guan PLAN OF TREATMENT Next Appt Details Provider Name:Steven Guan , 11/30/2024 09:20:00 AM, [address], [address], [place], [address],
--- OUTSIDE RECORDS SUMMARY | 2024-05-23 08:13 | XMS_ITS ---
Author Organization [facility] Address [address] [place] [address] Care Team Providers Care Supervisor Grading Name Role Phone MARIAH DSOUZA Primary Care Provider Steven Florence Unavailable [phone] ALLERGIES No Known Allergies REASON FOR VISIT [...] No Points 0 Interpretation Negative VITAL SIGNS Blood pressure systolic 00 mm Hg 09/05/20 24 Blood pressure diastolic 00 mm Hg 024 Height 70 in 12/02/2023 Weight 267 lbs 12/02/2023 BMI 38.31 kg/m2 12/02/2023 Encounters Encounter Location Date Provider Diagnosis [facility] [address] [place] [address] 12/02/2023 Steven Guan Crohns disease witho ut [...] Name:Steven Guan , 11/30/2024 09:20:00 AM, [address], [address], [place], [address], Progress Notes * Examination Category Sub-Category Detail [...]
--- OUTSIDE RECORDS SUMMARY | 2024-05-23 08:13 | XMS_ITS | Data Portability ---
Author Organization JASON Mari Macedo PNarciso, autoContract Address [address] [place] [address] Care Team Providers Care Intervention Nurse Name Role Phone JESSICA DENSON Primary Care Provider [phone] JESSICA DENSON Referring Provider [phone] Assessment No assessment recorded. Plan of Treatment Reminders Order Date Submit Date Provider Last Modified By Organization Details Last Modified Time Details Appointments None recorded. Lab None recorded. Referral None recorded. Procedures None recorded. Surgeries None recorded. Imaging None recorded. Medication Orders triamcinol one acetonide 0.1 % lotion 2017 018 INTERFACE [id number], [address] [place], [place], [phone], 8 14:22:00 Patient TargetsNo targets recorded. Patient Instructions Encounter Date Encounter Id Patient Instructions Last Modified By Organization Details Last Modified Time 01/18/2018 [id number] TREATMENT: PVD Footcare: Exam patient from pedal [...] Address Organization Details Last Updated DateTime 01/18/2018 604012.1 3 g 35.2 kg/m2 177.8 cm 130 mm[Hg] 70 mm[Hg] maine ashton [place] - [facility] 8 13:10:34 Social History Question Answer Notes LastModified by Organizat ion Details LastModified Time Tobacco Smoking Status Former Smoker Not Available [facility] 01/23/2020 03:19:04 DATE LAST SEEN BY PCP 07/21/2017 [email or web address] Information not available 01/18/2018 What Was The Date Of Your Most Recent Tobacco Screening? 01/18/2018 [id number] Information not available 01/23/2020 Sex: Unknown Functional Status None recorded. Mental Status None recorded. Family History Nothing Reported Notes:circ problems in legs, flatfeet, Medical History Condition Response Anemia Y Arthritis Y Hypertension Y Past Encounters Encounter ID Performer Location Encounter Start Date Encounter Closed Date Diagnosis/Indication Diagnosis SNOMED-CT Code Diagnosis ICD10 Code Diagnosis Note [id number] Cricket Escalante DPM [facility] Office [address] [place] [address] 01/18/2018 13:06:24 01/18/2018 14:31:22 Atherosclerosis of arteries of the extremities 16944882 I70.209 Onychomyco sis due to dermatophyte 004520224 B35.1 Deformity of foot 614552 004 M21.969 Corns and callus 5102358 00 L84 Pain in lower limb 52187 006 M79.669 Stasis dermatitis 455628 05 I87.2 Health Concerns Section Related Observation LastModified by Organization Detai ls LastModified Time None Recorded Concern Status LastModified by Organization Details LastModified Time None Recorded Advance Directives Directive None Recorded Payers Encounter Date Sequence Insurance Name Policy Number Policy Kelley Covered Member ID Kelley Member ID Guarantor Name 01/18/2018 1 [place] [employer] Jonah Bond [id number] Jonah Bond 01/18/2018 2 [facility] (MEDICARE SUPPLEMENT) Jonah Bond [id number] Jonah Bond Notes Date Note Type [...] at this time. Cricket Escalante, LI [address] [place], [address], JASON Calvillo [facility] PEmanuel. 01/18/2018 14:21:56
--- OUTSIDE RECORDS SUMMARY | 2024-05-23 08:13 | XMS_ITS | Data Portability ---
Author Organization [facility]IL[facility] Boothe [facility], [address] Address [address] [place] [address] Care Team Providers Care Wind Turbine Installer Name Role Phone MARIAH DSOUZA Primary Care Provider Assessment No assessment recorded. Plan of Treatment Reminders Order Date Submit Date Provider Last Modified By Organization Details Last Modified Time Details Appointments None recorded. Lab None recorded. Referral emergency medicine referral - Chest pain started today, constant, Abnormal EKG, Afib . need further evaluation and treatment. 2022 023 [email or web address] 26 [facility] Emergency Room, [address] [place] [address], [address], 3 09:04:02 Procedures None recorded. Surgeries None recorded. Imaging electrocard iogram 2022 023 [email or web address] 106 _[facility], [address] [place] [address], [address], 3 09:27:26 Medication Orders Children's Aspirin 81 mg chewable tablet 2022 023 [email or web address] Not available 09:24:46 Patient TargetsNo targets recorded. Patient Instructions Encounter Date Encounter Id Patient Instructions Last Modified By Organization Details Last Modified Time 05/24/2022 [id number] chest pain: care instructions [email or web address] Not available [...] am No observ ation record ed. [email or web address] [address], [address], 05/24/2022 09:20:51 Result Notes None recorded. Problems Name Problem SNOMED Code Status Onset Date Resolution Date Notes Provider Name and Address Organization Details Recorded Time Hypertensive disorder 15418942 Active 2022 Shannen ortiz, [place] - [facility] 3 08:53:36 Hypercholestero lemia 39713098 Active 2022 Shannen ortiz, [place] - [facility] 3 08:53:43 Crohn's disease 80892162 Active 2022 Shannen Sanchez null, [place] - [facility] 3 08:53:48 Depressive disorder 54353091 Active 2022 Shannen ortiz, PA - [facility] 3 08:53:57 Atrial fibrillation 38405957 Active 2022 Shannen ortiz, [place] - [facility] [...] Time 05/24/2022 electrocardiogram completed [email or web address] [address], [place], [address], 05/24/2022 09:20:51 Procedure Notes None recorded. Medical [...] t Available Vitals Date Recorded Body height Body mass index (BMI) Body weight Pain severity - 0-10 verbal numeric rating [Score] - Reported Oxygen saturation Oxygen saturation in Arterial blood by Pulse oximetry Heart rate Respiratory rate Body temperature Systolic blood pressure Diastolic blood pressure Provider Name and Address Organization Details Last Updated DateTime 3 177.8 cm 34.4 kg/m2 858622. 17 g 2 98 % 98 % 91 /min 18 /min 98 [degF] 116 mm[Hg] 74 mm[Hg] Shannen Sanchez [facility] 08:57:55 Social History Question Answer Notes LastModified by [employer] ion Details LastModified Time Tobacco Smoking Status Former Smoker 60 years ago Shannen ortiz [facility] 05/24/2022 08:55:07 What Is Your Level [...] SNOMED-CT Code Diagnosis ICD10 Code Diagnosis Note [id number] [address] [facility] [address] [facility] [place] [address] 08/14/2017 08:55:53 08/14/2017 09:37:48 [id number] [address] [facility] [address] [facility] [place] [address] 01/06/2021 16:43:45 01/06/2021 18:38:17 [id number] Parag Dudley NP [address] [facility] [place] [place] [address] 05/24/2022 08:45:59 05/24/2022 09:27:26 Chest pain 75131196 R07.9 Paroxysmal atrial fibrillation 669488535 I48.0 AMA signed . refused Ambulance transfer. strongly encouraged to go straight to ED. [facility] ED notified about expected arrival. Health Concerns Section Related Observation LastModified by Organization Detai ls LastModified Time None Recorded Concern Status LastModified by Organization Details LastModified Time None Recorded Advance Directives Directive None Recorded Payers Encounter Date Sequence Insurance Name Policy Number Policy Kelley Covered Member ID Kelley Member ID Guarantor Name 08/14/2017 1 MED[place]: [facility] Jonah Bond [id number] 2 Jonah Simentalland 08/14/2017 2 [facility] Jonah Bond [id number] Jonah Simentalland 01/06/2021 1 MED[place]: [facility] Jonah Bond [id number] 2 Jonah Correa Varun 01/06/2021 2 [facility] Jonah Simentalland [id number] Jonah Correa Varun 05/24/2022 1 [place]: [facility] Jonah Bond [id number] 2 Jonah Simentalland 05/24/2022 2 [facility] Jonah Bond [id number] Jonah Correa Varun Notes Date Note Type Note Provider Name [...] associated dizziness;chest discomfort;palpitations Parag Dudley NP [address] [place], [address], [place] - [facility] 05/24/2022 09:33:38
--- OUTSIDE RECORDS SUMMARY | 2024-05-23 08:14 | XMS_ITS | Patient Health Record ---
Author Organization [facility] Address [address] [place] [id number] Care Team Providers Care Electronic Security Technician Name Role Phone MARIAH DSOUZA Primary Care Provider Steven Florence Unavailable [phone] ALLERGIES No Known Allergies REASON FOR REFERRAL [...] W/U Status Risk SNOMED Code Notes Problem Rectal bleeding (K62.5) Active confirmed 90087156 Problem Diverticulosis of large intestine without perforation or abscess without bleeding (K57.30) Active confirmed Diverticul ar disease of colon (095075237) Problem Crohn's disease of colon (K50.10) Active confirmed Crohn's disea se of colon (07774661) Problem Crohns disease without complication, unspecified gastrointestinal tract location (K50.90) Active confirmed 53886032 Problem Diarrhea, unspecified type (R19.7) Active confirmed 67782175 Problem Crohn''s disease of large intestine without complication (K50.10) Active confirmed 5774661 VITAL SIGNS Blood pressure diastolic 00 mm Hg 12/02/2023 Height 70 in 12/02/2023 Blood pressure systolic 00 mm Hg 12/02/2023 Weight 267 lbs 12/02/2023 BMI 38.31 kg/m2 12/02/2023 Encounters Encounter Location Date Provider Diagnosis [facility] [address] [place] [address] 12/02/2023 Steven Guan Crohns disease witho ut [...] AM, [address], [address], [place], [address], Insurance Providers Payer Name Payer Address Payer Phone Subscriber Number Group Number Insured Name Patient Relationship to Insured Coverage Start Date Coverage End Date MEDICARE OF [place] [address] [place] [id number] [phone] [id number] SEDA BOND Self - patient is the insured [employer] [address] [place]ON BAKER [id number] SEDA BOND Self - patient is the insured MEDICAL (GENERAL) HISTORY Medical History History ICD Code Denies AL,DM,CVA,Lung disease,renal dise ase Crohn's colitis diagnosed in 2012--seen by Dr. [place]urt[place]--- he had a negative colonoscopy in 2011, [...] and there was no H. 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 Biopsies throughout the colon were negative for any colitis and dysplasia Watchman procedure placed in 08/2023 at [facility]--Coumadin was stopped and he was started on Plavix, along with his aspirin. He is scheduled for a ELIANA on 12/16/2023 at [facility] Surgical History Surgery Date(Month/Year) Cholecystectomy Back surgery Vein surgery of LE's 04/2018 and 05/2018
[2024-05-23 08:41] VITALS: BP 120/68; PULSE 92; RESP 20; TEMP 37.6; O2SAT 94; BMI 38.0
--- NOTE | 2024-05-23 08:41 | AM.OFFWIN_ITS ---
Intake Vital Signs 05/23/24 08:41 Height 5 ft 10 in Weight 265 lb BMI 38.0 BP 120/68 Blood Pressure Location Lt brachial Position Sitting Respiration 20 Pulse 92 Pulse Source Pulse Oximeter Temp 99.6 F Temp Source Oral Pulse Oximetry (%) 94 Oxygen Delivery Method Room Air Intake Visit Reasons: PE Cough, congestion Intake Note: Pt is here today for a walk in visit. Pt c/o cough, congestion, runny nose, chills, headache, body aches and SOB since yesterday. Patient Tobacco Use Status: Former Tobacco user Allergies oatmeal Allergy (Unknown, Uncoded 05/23/24 08:43) hives HPI HPI Comments History of Present Illness Details History - The patient is a 74-year-old male pres enting with a persistent cough and flu- like symptoms. - Symptoms onset was noted the previous day and included a persistent cough, chills, and sleep disturbances due to coughing. - Admits to some slight nausea and diarr hea but no vomiting. - No history of asthma or COPD but sligh t wheezing mentioned. - Concern is raised for the flu, with ch ills and subjective fever, though the fever was not measured at home. - No medications were taken by the patie nt to manage symptoms Physical Exam General: Cooperative, healthy appearing, comfortable and no acute distress Orientation/consciousness: Patient oriented x3 Limitations: No limitations Head: Normal to inspection Ears: Hearing grossly normal bilaterally, external ears normal and TM's normal bilaterally Nose: Normal external nose present, Normal nares present and No nasal discharge present Face and sinus: Normal facial exam and Yes sinuses nontender Mouth: Normal oral and palatal mucosa present and moist mucous membranes Throat: Yes tonsils normal, Yes uvula midline. Posterior oropharynx erythema Eyes: Appearance normal, both eyes and all related structures Neck: Normal visual inspection Respiratory: Clear to auscultation bilaterally. Normal respiratory effort, able to speak in complete sentences, Actively coughing, no respiratory distress, not tachypneic, no tripod positioning and no use of accessory muscles. Cardiovascular: Regular rate and rhythm. Normal S1 and S2 Skin: No rashes or lesions noted Neuro: Patient oriented x3 Extremities: Normal to inspection and Yes no clubbing, cyanosis or edema [facility] Medical History Presence of Watchman left atrial appendage closure device RANULFO (obstructive sleep apnea) BPH (benign prostatic hyperplasia) New onset a-fib Foreign body of finger of right hand Left anterior fascicular block (LAFB) Iron deficiency Depression Vertebral compression fracture PLMD (periodic limb movement disorder) PVD (peripheral vascular disease) Dyslipidemia HTN (hypertension) Crohn's disease Venous insufficiency of both lower extremities Surgical History History of cholecystectomy Status post endovenous radiofrequency ablation (RFA) of saphenous vein Family History Father Cancer of prostate Mother Anxiety Sister Breast cancer Sister Nephritis Sister No problems noted. Sister No problems noted. Sister No problems noted. Daughter Substance use disorder Mental health disorder Daughter No problems noted. Daughter No problems noted. Brother No problems noted. Brother No problems noted. Brother Epilepsy Paternal Grandfather Substance use disorder Social History Housing: House Alcohol intake: never Patient Tobacco Use Status: Former Tobacco user Years Smoked: 50 years ago e-Cigarette/Vaping Use: Never Used Second Hand Smoke Exposure: No service: Yes Current occupational status: retired Cognitive needs: No Hearing needs: No Vision needs: No Review of Systems Const All systems reviewed & are unremarkable except as noted in HPI and below Physical Exam Vital Signs: Last Vital Signs Temp 99.6 F 05/23/24 08:41 Pulse 92 05/23/24 08:41 Resp 20 05/23/24 08:41 BP 120/68 05/23/24 08:41 Pulse Ox 94 05/23/24 08:41 Oxygen Delivery Method Room Air 05/23/24 08:41 BMI result Body Mass Index 38.0 Assessment & Plan Assessment & Plan (1) Acute viral syndrome: Code(s): B34.9 - Viral infection, unspecified Plan: The management plan includes administering Tamiflu with the condition of monitoring adverse reactions such as nausea, vomiting, or diarrhea, given the suspicion of influenza. The use of an inhaler was advised to address the wheeze detected during the examination, instructing the patient on proper usage. Tessalon Perles was prescribed as a cough suppressant specifically for nighttime use to aid in sleep. The patient was encouraged to take dezz-uvo-hioqaeb medication such as Tylenol, ibuprofen, and decongestants for symptomatic relief. The plan emphasizes balanced treatment with consideration of the patient's medical history and response to current interventions, planning further steps after lab results are reviewed later in the day. Any worsening of symptoms, pt should go to the Emergency Department. Patient was informed and verbally consented to the use of an ambient scribe for clinic note documentation during this visit Orders: Orders SARS-CoV2/FLU/RSV Today R09.89 - Other specified symptoms and signs involving the circulatory and respiratory systems Medications: New albuterol sulfate 90 mcg/actuation 2 puffs inhalation Q6H PRN 8.5 grams 0RF shortness of breath or wheezing or cough benzonatate 200 mg PO .QHS PRN 10 caps 0RF cough Coding Level of Care Code Est Pt Level 3 (62889) Diagnoses Acute viral syndrome B34.9
== END 2024-05-23 09:30 | disposition home or self-care (01) ==
PROVIDERS: PCP Nurse Practitioner Family; Visit Provider Physician Assistant
DX: B34.9 Viral infection, unspecified (principal)

== ENCOUNTER 2024-05-23 08:04 | Outpatient (REF) | payer MEDICARE, OTHER, SELFPAY ==
[2024-05-23 12:43] LABS: Influenza A PCR POSITIVE (Negative); Influenza B PCR NEGATIVE (Negative); Resp Syncy Virus RNA Qual PCR NEGATIVE (Negative); SARS COV2 PCR INHOUSE NEGATIVE (Negative)
== END 2024-05-23 08:05 | disposition home or self-care (01) ==
LOC: HO.LAB 08:04
PROVIDERS: PCP Nurse Practitioner Family; Visit Provider Physician Assistant
DX: B34.9 Viral infection, unspecified (principal); R09.89 Other specified symptoms and signs involving the circulatory and respiratory systems; R05.8 Other specified cough
CPT/HCPCS: 0241U; 99212

== ENCOUNTER 2024-05-31 13:05 | Outpatient (AMB) | payer MEDICARE, OTHER, SELFPAY ==
[2024-05-31 13:21] VITALS: BP 116/80; PULSE 96; TEMP 36.9; O2SAT 95; BMI 37.6
--- NOTE | 2024-05-31 13:21 | MHC.OFFWIV ---
Intake Vital Signs 05/31/24 13:21 Height 5 ft 10 in Weight 262 lb BMI 37.6 BP 116/80 Blood Pressure Location Lt brachial Position Sitting Pulse 96 Pulse Source Pulse Oximeter Temp 98.4 F Temp Source Oral Pulse Oximetry (%) 95 Oxygen Delivery Method Room Air Intake Visit Reasons: EP Cough, still not feeling better. Intake Note: Pt is here today c/o cough no improvement Patient Tobacco Use Status: Former Tobacco user Allergies oatmeal Allergy (Unknown, Uncoded 05/31/24 13:23) hives HPI HPI Comments History of Present Illness Details History - The patient is a 74-year-old male presenting with persistent symptoms post-positive influenza test, including cough and wheezing. - Influenza diagnosis confirmed on May 23; ongoing symptoms include nocturnal cough impacting sleep and shortness of breath. - Observation includes usage of decongestant medication every 12 hours for managing symptoms. - Reports shortness of breath, with no prior history of asthma or Chronic Obstructive Pulmonary Disease; history of smoking in the 1950s but only for a very short time. - Family history shows similar symptoms with the and daughter also affected by the flu. Physical Exam General: Cooperative, healthy appearing, comfortable and no acute distress Orientation/consciousness: Patient oriented x3 Limitations: No limitations Head: Normal to inspection Ears: Hearing grossly normal bilaterally, external ears normal and right TM normal, left TM with cerumen Nose: Normal external nose present, Normal nares present and No nasal discharge present Face and sinus: Normal facial exam and Yes sinuses nontender Mouth: Normal oral and palatal mucosa present and moist mucous membranes Throat: Yes tonsils normal, Yes uvula midline. Posterior oropharynx erythema Eyes: Appearance normal, both eyes and all related structures Neck: Normal visual inspection Respiratory: Exp wheezing present, vesicular sounds throughout. Normal respiratory effort, able to speak in complete sentences, Actively coughing, no respiratory distress, not tachypneic, no tripod positioning and no use of accessory muscles Cardiovascular: Regular rate and rhythm. Normal S1 and S2 Skin: No rashes or lesions noted Neuro: Patient oriented x3 Extremities: Normal to inspection and Yes no clubbing, cyanosis or edema [facility] Medical History Presence of Watchman left atrial appendage closure device RANULFO (obstructive sleep apnea) BPH (benign prostatic hyperplasia) New onset a-fib Foreign body of finger of right hand Left anterior fascicular block (LAFB) Iron deficiency Depression Vertebral compression fracture PLMD (periodic limb movement disorder) PVD (peripheral vascular disease) Dyslipidemia HTN (hypertension) Crohn's disease Venous insufficiency of both lower extremities Surgical History History of cholecystectomy Status post endovenous radiofrequency ablation (RFA) of saphenous vein Family History Father Cancer of prostate Mother Anxiety Sister Breast cancer Sister Nephritis Sister No problems noted. Sister No problems noted. Sister No problems noted. Daughter Substance use disorder Mental health disorder Daughter No problems noted. Daughter No problems noted. Brother No problems noted. Brother No problems noted. Brother Epilepsy Paternal Grandfather Substance use disorder Social History (Reviewed 02/29/24 @ 08:16 by Emile Chamorro [employer] [facility]) Housing: House Alcohol intake: never Patient Tobacco Use Status: Former Tobacco user Years Smoked: 50 years ago e-Cigarette/Vaping Use: Never Used Second Hand Smoke Exposure: No service: Yes Current occupational status: retired Cognitive needs: No Hearing needs: No Vision needs: No Review of Systems Const All systems reviewed & are unremarkable except as noted in HPI and below Physical Exam Vital Signs: Last Vital Signs Temp 98.4 F 05/31/24 13:21 Pulse 96 05/31/24 13:21 BP 116/80 05/31/24 13:21 Pulse Ox 95 05/31/24 13:21 Oxygen Delivery Method Room Air 05/31/24 13:21 BMI result Body Mass Index 37.6 Assessment & Plan Assessment & Plan (1) URI (upper respiratory infection): Code(s): J06.9 - Acute upper respiratory infection, unspecified Qualifiers: URI type: unspecified URI Qualified Code(s): J06.9 - Acute upper respiratory infection, unspecified Plan: VSS, pt well appearing, lung sounds with exp wheeze and vesicular throughout. Due to the ongoing cough and wheezing post-flu, a chest x-ray has been ordered to rule out pneumonia. The patient will begin prednisone treatment at 40 mg daily starting the next day to avoid interference with sleep. A Z-Jason azithromycin will be initiated to counter any secondary bacterial infections, given its anti-inflammatory benefits that can assist in reducing respiratory distress. Should the chest x-ray indicate pneumonia, additional antibiotic therapy with Augmentin will be initiated. The patient will continue current pmcr-lab-idrgxrt decongestant use and can utilize any remaining Tessalon Perles, although they may not significantly mitigate nighttime cough symptoms. Patient was informed and verbally consented to the use of an ambient scribe for clinic note documentation during this visit Orders: Orders XR chest 2V Today R05.9 - Cough, unspecified Medications: New prednisone 40 mg (2 x 20 mg) PO DAILY 10 tabs 0RF azithromycin For 250 mg dose pack: take 500 mg today (day 1), then 250 mg for 4 days (days 2-5) PO 6 tabs 0RF Coding Level of Care Code Est Pt Level 4 (25926) Diagnoses Upper respiratory tract infection, unspecified type J06.9 URI type: unspecified URI
--- OUTSIDE RECORDS SUMMARY | 2024-05-31 15:30 | XMS_ITS ---
Author Organization [facility] Address [address] [place] [address] Care Team Providers Care Pipe Smoking Machine Offbearer Name Role Phone MARIAH DSOUZA Primary Care Provider Steven Florence Unavailable [phone] Allergies No Known Allergies REASON FOR VISIT Patient presents today for CROHN'S Medications Medication SIG (Take, Route, Frequency, Duration) [...] Orally Once a day Starting 05/20/2022 Active Social History Tobacco Use: Social History Observation Description Date Details (start date - stop date) Never Smoker NA - NA Tobacco Use/Smoking Question Answer Notes Patient is a nonsmoker Alcohol Screen Question Answer Notes Did you have a drink containing alcohol in the p ast year? No Points 0 Interpretation Negative Section Notes: Nonsmoker; no alcohol Vital Signs Temperature 97.5 degrees Fahrenheit 05/13/19 24 Blood pressure systolic 00 mm Hg 05/13/19 24 Blood pressure diastolic 00 mm Hg 024 Height 70 in 05/13/2023 Weight 270 lbs 05/13/2023 BMI 38.74 kg/m2 05/13/2023 Encounters Encounter Location Date Provider Diagnosis [facility] [address] [place] [address] 05/13/2023 Steven Guan Crohns disease witho ut complication, unspecified gastrointestinal tract location K50.90 and Rectal bleeding K62.5 Assessments Encounter Date Diagnosis (ICD Code) Assessment Notes Treatment Notes Treatment Clinical Notes Section Notes 05/13/2023 Crohns disease without complication, unspecified gastrointestinal tract location (ICD-10 - K50.90) Overall, Seda appears well. Based on his recent studies from [facility] and a colonoscopy last year, I advised him that his intermittent bleeding seems quite consistent with that of hemorrhoidal disease. Certainly being on a blood thinner may be contributing to the bleeding as well. Hopefully being on a lower dose of the Coumadin will help to keep that relatively quiet. I did advise him to continue his oral mesalamine. I have given him the names of svtk-bhh-jvaoft r suppositories such as Preparation H or Anusol to try if the hemorrhoidal bleeding increases again. I did advise him to call me if things worsen and we can try something such as a mesalamine suppository, or even consider having him see Dr. Harp for the hemorrhoids. If things otherwise remain well, I will plan to see him in the Fall for a followup visit. I advised him to contact me prior to that if he has any problems or questions I can be of assistance with. Seda was comfortable with this plan. Thank you again for allowing me to participate in Seda's care. I shall continue to keep you advised of his progress. 05/13/2023 Rectal bleeding (ICD-10 - K62.5) Try an over the counter suppository for the hemorrhoids at bedtime if you have bleeding. You can try Preparation H or Anusol. Overall, Seda appears well. Based on his recent studies from [facility] and a colonoscopy last year, I advised him that his intermittent bleeding seems quite consistent with that of hemorrhoidal disease. Certainly being on a blood thinner may be contributing to the bleeding as well. Hopefully being on a lower dose of the Coumadin will help to keep that relatively quiet. I did advise him to continue his oral mesalamine. I have given him the names of fsiy-git-nkalvy r suppositories such as Preparation H or Anusol to try if the hemorrhoidal bleeding increases again. I did advise him to call me if things worsen and we can try something such as a mesalamine suppository, or even consider having him see Dr. Harp for the hemorrhoids. If things otherwise remain well, I will plan to see him in the Fall for a followup visit. I advised him to contact me prior to that if he has any problems or questions I can be of assistance with. Seda was comfortable with this plan. Thank you again for allowing me to participate in Seda's care. I shall continue to keep you advised of his progress. Plan Of Treatment Treatment Notes Assessment Notes Rectal bleeding Try an over the coun ter suppository for the hemorrhoids at bedtime if you have bleeding. You can try Preparation H or Anusol. Next Appt Details Follow Up: 2023, Ramo n: Provider Name:Steven Guan , 11/30/2024 09:20:00 AM, [address] [place] [address], [facility] [address], [address], Progress Notes * SEDA BOND CDOB:1949 (73 yo M)Acc No.[id number]:05/13/2023 Progress Notes Patient:?SEDA BOND Provider:?Steven Guan MD :1950???Age:73 Y???Sex:Male Luke e:05/13/2023 Address:[address] [place], [place] [id number] Pcp:MARIAH DSOUZA Subjective: * Chief Complaints: * ???Patient presents today fo r CROHN'S * HPI: ???incontinence:? I saw Seda in followup today in regard to his underlying history of Crohn's disease and intermittent rectal bleeding. ?I last saw Seda in May of 2022, at which time he underwent a colonoscopy. This did not reveal any sign of active Crohn's disease, polyps, nor dysplasia within the colon biopsies. He did have internal hemorrhoids noted. He was having intermittent bleeding at that time which I felt was related to the hemorrhoids. Subsequent to that he had to start Coumadin for atrial fibrillation. He was having some increased bleeding almost on a daily basis for which he was seen at [facility] on April 23. At that time a CT scan did not reveal any sign of active Crohn's disease nor any other abnormalities. Blood work revealed a hemoglobin of 11.2 with a normal MCV, and a PT of 16.7 with INR of 1.6 on his Coumadin. He did stop his Coumadin and his bleeding subsided. Recently he was seen by his traditional maori health practitioner who did want to start him back on the Coumadin. In my discussion with his office's N.P. I felt that it would be safe to do so and he is now back on Coumadin, but at a somewhat lower dose. He has not had any further bleeding as yet. ?He described that his bowel movements are fairly regular with about 2 or 3 soft or loose bowel movements per day. He does take iron every day but has not noticed any melena. He enjoys a good appetite and denies any significant heartburn or dysphagia. He denies abdominal pain, jaundice, nor unintentional weight loss. Overall, he feels well at the present time. ?Of note, he does remain on his four 1.2 g mesalamine daily. * ROS:?General/Constitutional:?Change in appetite?denies.?Chills?denies.?Fatigue?denies.?Ophthalmologic:?Comments?all negative.?ENT:?Comments?all negative.?Respiratory:?hemoptysis?denies.?Cough?denies.?Cardiovascular:?Chest pain?denies.?Orthopnea?denies.?Gastrointestinal:?Comments?See HPI for details.?Genitourinary:?Hematuria?denies.?Dysuria?denies.?Musculoskeletal:?Painful joints?denies.?Weakness?denies.?Skin:?Itching?denies.?Rash?denies.?Neurologic:?Headache?denies.?Seizures?denies.?Psychiatric:?Comments?all negative.? * Medical History:? * Surgical History:?Cholecyste ctomy Back surgery Vein surgery of LE's 04/2018 and 05/2018 * Hospitalization/Major Diagno stic Procedure:?No Hospitalization History. * Family History:?Father: dece ased.?Mother: .?Siblings: , sister, nephrolithiasis.? No known hx of colon cancer. * Social History:?Tobacco Use:?Tobacco Use/Smoking?Patient is a?nonsmoker.?Drugs/Alcohol:?Alcohol Screen?Did you have a drink containing alcohol in the past year??No,?Points?0,?Interpretation?Negative.?Miscellaneous:?Marital status: . 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 ???Nonsmoker; no alcohol. * Medications:?TakingMesalamin e 1.2 GM Tablet Delayed Release 4 Orally Once a day, Notes: Starting 05/20/2022uPROPion HCl ER (XL) 150 MG Tablet Extended Release 24 Hour 1 tablet in the morning Orally Once a dayTamsulosin HCl 0.4 MG Capsule 1 capsule Orally Once a dayFLUoxetine HCl 40 MG Capsule 2 capsule Orally Once a dayIron 325 (65 Fe) MG Tablet 1 tablet Orally Once a dayProbiotic 250 MG Capsule 1 capsule Orally once a dayMulti Vitamin/Minerals - Tablet 1 Orally QDrOPINIRole HCl 0.25 MG Tablet 1 tablet Orally Three times a dayMetoprolol Succinate ER 25 MG Tablet Extended Release 24 Hour TAKE 1 TABLET BY MOUTH ONCE DAILY IN THE MORNING . DO NOT CRUSH OR CHEW Diagnosis Unavailable Oral Lialda 1.2 GM Tablet Delayed Release 4 Orally Once a dayWarfarin Sodium 5 MG Tablet Oral Taking Mesalamine 1.2 GM Tablet Delayed Release 4 Orally Once a day, Notes: Starting 05/20/2022Taking buPROPion HCl ER (XL) 150 MG Tablet Extended Release 24 Hour 1 tablet in the morning Orally Once a dayTaking Tamsulosin HCl 0.4 MG Capsule 1 capsule Orally Once a dayTaking FLUoxetine HCl 40 MG Capsule 2 capsule Orally Once a dayTaking Iron 325 (65 Fe) MG Tablet 1 tablet Orally Once a dayTaking Probiotic 250 MG Capsule 1 capsule Orally once a dayTaking Multi Vitamin/Minerals - Tablet 1 Orally QDTaking rOPINIRole HCl 0.25 MG Tablet 1 tablet Orally Three times a dayTaking Metoprolol Succinate ER 25 MG Tablet Extended Release 24 Hour TAKE 1 TABLET BY MOUTH ONCE DAILY IN THE MORNING . DO NOT CRUSH OR CHEW Diagnosis Unavailable Oral Taking Lialda 1.2 GM Tablet Delayed Release 4 Orally Once a dayTaking Warfarin Sodium 5 MG Tablet Oral DiscontinuedAntacid 500 MG Tablet Chewable 1 tablet Orally Once a dayBalsalazide Disodium 750 MG Capsule 3 Orally TID, Notes: Stopped in Novanasa 1000 MG Suppository 1 suppository at bedtime Rectal Once a dayMedication List reviewed and reconciled with the patientDiscontinued Antacid 500 MG Tablet Chewable 1 tablet Orally Once a dayDiscontinued Balsalazide Disodium 750 MG Capsule 3 Orally TID, Notes: Stopped in Noviscontinued Canasa 1000 MG Suppository 1 suppository at bedtime Rectal Once a dayMedication List reviewed and reconciled with the patient * Allergies:?N.K.D.A.yes[Aller gies Verified] Objective: * Vitals:?Wt: 270 lbs, Ht: 70 in, BMI:38.74 Index, BP: 00/00 mm Hg, Temp: 97.5. * Examination: ???General Examination: ?GENERAL APPEARANCE:?pleasant, well nourished, well developed, in no acute distress.?EYES:?sclera non-icteric.?ORAL CAVITY:?mucosa moist.?NECK/THYROID:?no cervical lymphadenopathy, neck supple.?SKIN:?nonjaundiced, no spider angiomata.?HEART:?S1, S2 normal.?LUNGS:?clear to auscultation bilaterally.?ABDOMEN:?normal bowel sounds, no guarding or rigidity, no guarding or rigidity, no masses palpable, soft, nontender, nondistended.?EXTREMITIES:?no edema.?NEUROLOGIC:?alert and oriented.? Assessment: * Assessment: 1.?Crohns disease without co mplication, unspecified gastrointestinal tract location - K50.90 (Primary)?2.?Rectal bleeding - K62.5? Overall, Seda appears wel l. Based on his recent studies from [facility] and a colonoscopy last year, I advised him that his intermittent bleeding seems quite consistent with that of hemorrhoidal disease. Certainly being on a blood thinner may be contributing to the bleeding as well. Hopefully being on a lower dose of the Coumadin will help to keep that relatively quiet. I did advise him to continue his oral mesalamine. I have given him the names of ttpn-pgl-keuavsv suppositories such as Preparation H or Anusol to try if the hemorrhoidal bleeding increases again. I did advise him to call me if things worsen and we can try something such as a mesalamine suppository, or even consider having him see Dr. Harp for the hemorrhoids. If things otherwise remain well, I will plan to see him in the Fall for a followup visit. I advised him to contact me prior to that if he has any problems or questions I can be of assistance with. Seda was comfortable with this plan. Thank you again for allowing me to participate in Seda's care. I shall continue to keep you advised of his progress. Plan: * Treatment: * Procedure Codes:?3017F COLOR ECTAL CA SCREEN DOC [id number] TOBACCO NON-[id number] BP SCR NOT PRFRM REC REASON NOS * Preventive Medicine:? ??Counseling:?Care goal follow-up plan:?Above Normal BMI Follow-up?Giving encouragement to exercise,?BMI management provided?Yes.? * Follow Up:?2023 * * Sign off status: Completed true * Provider:?Steven Guan MD Date:? 024 Generated for Matthew poe/Yaya/Tusharitting on:?05/31/2024 03:29 PM EST History and Physical Notes * HPI (History of Present Illness) Category Sub-Category Detail Notes Category Not es incontinence I saw Seda in followup today in regard to his underlying history of Crohn's disease and intermittent rectal bleeding. I last saw Seda in May of 2022, at which time he underwent a colonoscopy. This did not reveal any sign of active Crohn's disease, polyps, nor dysplasia within the colon biopsies. He did have internal hemorrhoids noted. He was having intermittent bleeding at that time which I felt was related to the hemorrhoids. Subsequent to that he had to start Coumadin for atrial fibrillation. He was having some increased bleeding almost on a daily basis for which he was seen at [facility] on April 23. At that time a CT scan did not reveal any sign of active Crohn's disease nor any other abnormalities. Blood work revealed a hemoglobin of 11.2 with a normal MCV, and a PT of 16.7 with INR of 1.6 on his Coumadin. He did stop his Coumadin and his bleeding subsided. Recently he was seen by his traditional maori health practitioner who did want to start him back on the Coumadin. In my discussion with his office's N.P. I felt that it would be safe to do so and he is now back on Coumadin, but at a somewhat lower dose. He has not had any further bleeding as yet. He described that his bowel movements are fairly regular with about 2 or 3 soft or loose bowel movements per day. He does take iron every day but has not noticed any melena. He enjoys a good appetite and denies any significant heartburn or dysphagia. He denies abdominal pain, jaundice, nor unintentional weight loss. Overall, he feels well at the present time. Of note, he does remain on his four 1.2 g mesalamine daily. Examination Category Sub-Category Detail Notes Category Not es General Examination GENERAL APPEARANCE: pleasant , well [...]
--- OUTSIDE RECORDS SUMMARY | 2024-05-31 15:30 | XMS_ITS | Data Portability ---
Author Organization [facility] Address [address] [place] [address] Care Team Providers Care Recreation Aide Name Role Phone MARIAH DSOUZA Primary Care Provider [phone] Assessment No assessment recorded. Plan of Treatment Reminders Order Date Submit Date Provider Last Modified By Organization Details Last Modified Time Details Appointments None recorded. Lab None recorded. Referral emergency medicine referral - Chest pain started today, constant, Abnormal EKG, Afib . need further evaluation and treatment. 2022 023 [email or web address] 26 [facility], [address] [place] [address], [phone], 3 09:04:02 Procedures None recorded. Surgeries None recorded. Imaging electrocard iogram 2022 023 [email or web address] 106 [facility], [address] [place] [address], [phone], 3 09:27:26 Medication Orders Children's Aspirin 81 mg chewable tablet 2022 023 [email or web address] Not available 09:24:46 Patient TargetsNo targets recorded. Patient Instructions Encounter Date Encounter Id Patient Instructions Last Modified By Organization Details Last Modified Time 05/24/2022 [id number] chest pain: care instructions [email or web address] Not available [...] am No observ ation record ed. [email or web address] [id number], [address], 05/24/2022 09:20:51 Result Notes None recorded. Problems Name Problem SNOMED Code Status Onset Date Resolution Date Notes Provider Name and Address Organization Details Recorded Time Hypertensive disorder 89996907 Active 2022 Shannen ortiz, [place] - [facility] 3 08:53:36 Hypercholestero lemia 92719113 Active 2022 Shannen ortiz, [place] - [facility] 3 08:53:43 Crohn's disease 82928204 Active 2022 Shannen Sanchez null, [place] - [facility] 3 08:53:48 Depressive disorder 84982443 Active 2022 Shannen ortiz, [place] - [facility] 3 08:53:57 Atrial fibrillation 57575511 Active 2022 Shannen [facility]tiz, [place] - [facility] [...] Time 05/24/2022 electrocardiogram completed [email or web address] [id number], [place], [address], 05/24/2022 09:20:51 Procedure Notes None recorded. Medical [...] Updated DateTime 3 177.8 cm 34.4 kg/m2 386769. 17 g 2 98 % 98 % 91 /min 18 /min 98 [degF] 116 mm[Hg] 74 mm[Hg] Shannen Sanchez [facility] 08:57:55 Social History Question Answer Notes LastModified by pan[employer] ion Details LastModified Time Tobacco Smoking Status Former Smoker 60 years ago Shannen ortiz [facility] 05/24/2022 08:55:07 What Is Your Level [...] SNOMED-CT Code Diagnosis ICD10 Code Diagnosis Note [id number] [address] [facility] [address] [facility] [place] [address] 08/14/2017 08:55:53 08/14/2017 09:37:48 [id number] [address] [facility] [address] [facility] [place] [address] 01/06/2021 16:43:45 01/06/2021 18:38:17 [id number] Parag Dudley NP [address] [facility] [place] [address] 05/24/2022 08:45:59 05/24/2022 09:27:26 Chest pain 18606014 R07.9 Paroxysmal atrial fibrillation 476641881 I48.0 AMA signed . refused Ambulance transfer. strongly encouraged to go straight to ED. [facility] ED notified about expected arrival. Health Concerns Section Related Observation LastModified by Organization Detai ls LastModified Time None Recorded Concern Status LastModified by Organization Details LastModified Time None Recorded Advance Directives Directive None Recorded Payers Encounter Date Sequence Insurance Name Policy Number Policy Kelley Covered Member ID Kelley Member ID Guarantor Name 08/14/2017 1 [place] [facility] Jonah Bond [id number] 2 Jonah Simentalland 08/14/2017 2 [facility] Jonah Bond [id number] Jonah Simentalland 01/06/2021 1 [place] [facility] Jonah Bond [id number] Jonah Correa Varun 01/06/2021 2 [facility] Jonah Simentalland [id number] Jonah Correa Varun 05/24/2022 1 [place] [facility] Jonah Bond [id number] 2 Jonah Simentalland 05/24/2022 2 [facility] Jonah Bond [id number] Jonah Correa Varun Notes Date Note [...] Parag Dudley NP [address] [place], [address], [place] - [facility] 05/24/2022 09:33:38
--- OUTSIDE RECORDS SUMMARY | 2024-05-31 15:30 | XMS_ITS ---
Author Organization [facility] Address [address] [place] [address] Care Team Providers Care Chair Caner Name Role Phone MARIAH DSOUZA Primary Care Provider Steven Florence [phone] Encounters Encounter Location Date Provider Diagnosis [facility] [address] [facility] [address] [place] [address] 05/10/2023 Steven Guan Plan Of Treatment Next Appt Details Provider Name:Steven Guan , 11/30/2024 09:20:00 AM, [address], [address], [place], [address], Progress Notes * SEDA BOND CDOB:1949 (73 yo M)Acc No.[id number]:05/10/2023 Patient:?SEDA BOND :1950???Age:73 Y???Sex:Male Address:[address] [place] [address], [address] * true * Date:? Generated for Printi lui/Yaya/eTransmitting on:?05/31/2024 03:30 PM EST
--- OUTSIDE RECORDS SUMMARY | 2024-05-31 15:30 | XMS_ITS ---
Author Organization [facility] Address [address] [place] [address] Care Team Providers Care Vb Net Programmer Name Role Phone MARIAH DSOUZA Primary Care Provider Steven Florence Unavailable [phone] Allergies No Known Allergies REASON FOR VISIT Patient presents today for crohn's Medications Medication SIG (Take, Route, Frequency, Duration) [...] the morning Orally Once a day Active Social History Tobacco Use: Social History Observation Description Date Details (start date - stop date) Never Smoker NA - NA Tobacco Use/Smoking Question Answer Notes Patient is a nonsmoker Alcohol Screen Question Answer Notes Did you have a drink containing alcohol in the p ast year? No Points 0 Interpretation Negative Section Notes: Nonsmoker; no alcohol Vital Signs Blood pressure systolic 00 mm Hg 12/02/19 24 Blood pressure diastolic 00 mm Hg 024 Height 70 in 12/02/2023 Weight 267 lbs 12/02/2023 BMI 38.31 kg/m2 12/02/2023 Encounters Encounter Location Date Provider Diagnosis [facility] [address] [place] [address] 12/02/2023 Steven Guan Crohns disease witho ut complication, unspecified gastrointestinal tract location K50.90 Assessments Encounter Date Diagnosis (ICD Code) Assessment Notes Treatment Notes Treatment Clinical Notes Section Notes 12/02/2023 Crohns disease without complication, unspecified gastrointestinal tract location (ICD-10 - K50.90) Overall, Seda appears quite well. His Crohn's disease remains clinically stable on his current regimen of the mesalamine. Given the negative colonoscopy last year and his current clinical status I advised him to continue the mesalamine long-term. Hopefully being off the Coumadin will continue to keep the hemorrhoidal bleeding at a minimum. At this point I advised him that he can simply continue mesalamine as long as things remain stable. I will plan to see him in one year for a followup visit. Given his negative colonoscopy just last year I don't think he will need any further screening colonoscopies going forward. I did advise him to call me prior to next year's visit if he has any problems or questions I can be of assistance with. Seda was comfortable with this plan. Thank you again for allowing me to participate in Seda's care. I shall continue to keep you advised of his progress. Plan Of Treatment Medication Medication Name Sig Start Date Stop Date Notes Mesalamine 1.2 GM 4 Orally Once a day Starting 05/20/2022 Next Appt Details Follow Up: 1 Year, Reason: Provider Name:Steven Chisholm Roge , 11/30/2024 09:20:00 AM, [address], [address], [place], [address], Progress Notes * SEDA BOND CDOB:1949 (73 yo M)Acc No.[id number]:12/02/2023 Progress Notes Patient:?SEDA BOND Provider:?Steven Guan MD :1950???Age:73 Y???Sex:Male Luke e:12/02/2023 Address:[address] [place] [address], [id number] Pcp:MARIAH DSOUZA Subjective: * Chief Complaints: * ???Patient presents today fo r crohn's * HPI: ???incontinence:? I saw Seda in followup today in regard to his underlying history of Crohn's disease. ?Since I last saw Seda in April he reports he has been feeling well from a GI standpoint. He has continued on his 4.8 g of mesalamine daily. He describes that his bowel movements have been regular and without any significant diarrhea, hematochezia, or melena. He enjoys a good appetite and denies any significant heartburn, dysphagia, early satiety, nausea, or vomiting. He denies abdominal pain, jaundice, nor weight loss. ?He is no longer on Coumadin as he was recently switched to Plavix after placement of a Watchman device for his atrial fibrillation. * ROS:?General/Constitutional:?Change in appetite?denies.?Chills?denies.?Fatigue?denies.?Ophthalmologic:?Comments?all negative.?ENT:?Comments?all negative.?Respiratory:?hemoptysis?denies.?Cough?denies.?Cardiovascular:?Chest pain?denies.?Orthopnea?denies.?Gastrointestinal:?Comments?See [...] the past year??No,?Points?0,?Interpretation?Negative.?Miscellaneous:?Marital status: . 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 ???Nonsmoker; no alcohol. * Medications:?TakingMesalamin e 1.2 [...] Tablet Delayed Release 4 Orally Once a dayClopidogrel Bisulfate 75 MG Tablet TAKE 1 TABLET BY MOUTH EVERY DAY Oral Taking Mesalamine 1.2 GM Tablet Delayed [...] Delayed Release 4 Orally Once a dayTaking Clopidogrel Bisulfate 75 MG Tablet TAKE 1 TABLET BY MOUTH EVERY DAY Oral DiscontinuedWarfarin Sodium 5 MG Tablet Oral Medication List reviewed and reconciled with the patientDiscontinued Warfarin Sodium 5 MG Tablet Oral Medication List reviewed and reconciled with the patient * Allergies:?N.K.D.A.yes[Aller gies Verified] Objective: * Vitals:?Wt: 267 lbs, Ht: 70 in, BMI:38.31 Index, BP: 00/00 mm Hg. * Examination: ???General Examination: ?GENERAL APPEARANCE:?pleasant, well nourished, well developed, in no acute distress.?EYES:?sclera non-icteric.?ORAL CAVITY:?mucosa moist.?NECK/THYROID:?no cervical lymphadenopathy, neck supple.?SKIN:?nonjaundiced, no spider angiomata.?HEART:?S1, S2 normal.?LUNGS:?clear to auscultation bilaterally.?ABDOMEN:?normal bowel sounds, no guarding or rigidity, no guarding or rigidity, no masses palpable, soft, nontender, nondistended.?NEUROLOGIC:?alert and oriented.? Assessment: * Assessment: 1.?Crohns disease without co mplication, unspecified gastrointestinal tract location - K50.90 (Primary)? Overall, Seda appears ronal te well. His Crohn's disease remains clinically stable on his current regimen of the mesalamine. Given the negative colonoscopy last year and his current clinical status I advised him to continue the mesalamine long-term. Hopefully being off the Coumadin will continue to keep the hemorrhoidal bleeding at a minimum. At this point I advised him that he can simply continue mesalamine as long as things remain stable. I will plan to see him in one year for a followup visit. Given his negative colonoscopy just last year I don't think he will need any further screening colonoscopies going forward. I did advise him to call me prior to next year's visit if he has any problems or questions I can be of assistance with. Seda was comfortable with this plan. Thank you again for allowing me to participate in Seda's care. I shall continue to keep you advised of his progress. Plan: * Treatment: * Procedure Codes:?3017F COLOR ECTAL CA SCREEN DOC [id number] TOBACCO NON-[id number] BP SCR NOT PRFRM REC REASON NOS * Preventive Medicine:? ??Screenings:?Fall Risk Screening?Fall Risk Assessment:?No falls in the past year,?Assessment:?Not performed, no reason specified.? * Follow Up:?1 Year * * Sign off status: Completed true * Provider:?Steven Guan MD Date:? 024 Generated for Matthew poe/Yaya/Tusharitting on:?05/31/2024 03:30 PM EST History and Physical Notes * HPI (History of Present Illness) Category Sub-Category Detail Notes Category Not es incontinence I saw Seda in followup today in regard to his underlying history of Crohn's disease. Since I last saw Seda in April he reports he has been feeling well from a GI standpoint. He has continued on his 4.8 g of mesalamine daily. He describes that his bowel movements have been regular and without any significant diarrhea, hematochezia, or melena. He enjoys a good appetite and denies any significant heartburn, dysphagia, early satiety, nausea, or vomiting. He denies abdominal pain, jaundice, nor weight loss. He is no longer on Coumadin as he was recently switched to Plavix after placement of a Watchman device for his atrial fibrillation. Examination Category Sub-Category Detail Notes Category Not [...]
--- OUTSIDE RECORDS SUMMARY | 2024-05-31 15:30 | XMS_ITS | Data Portability ---
Author Organization [facility], [facility] Address [address] [place] [address] Care Team Providers Care Plastering Supervisor Name Role Phone JESSICA DENSON Primary Care Provider JESSICA DENSON Referring Provider Assessment No assessment recorded. Plan of Treatment Reminders Order Date Submit Date Provider Last Modified By Organization Details Last Modified Time Details Appointments None recorded. Lab None recorded. Referral None recorded. Procedures None recorded. Surgeries None recorded. Imaging None recorded. Medication Orders triamcinol one acetonide 0.1 % lotion 2017 018 INTERFACE [id number], [address], [place], [id number], 8 14:22:00 Patient TargetsNo targets recorded. Patient Instructions Encounter Date Encounter Id Patient Instructions Last Modified By Organization Details Last Modified Time 01/18/2018 [id number] TREATMENT: PVD Footcare: Exam patient from pedal [...] Address Organization Details Last Updated DateTime 01/18/2018 908816.1 3 g 35.2 kg/m2 177.8 cm 130 mm[Hg] 70 mm[Hg] maine ashton [place] - [facility] 8 13:10:34 Social History Question Answer Notes LastModified by Organizat ion Details LastModified Time Tobacco Smoking Status [facility]oker [facility] 01/23/2020 03:19:04 DATE LAST SEEN BY PCP 07/21/2017 [email or web address] Information not available 01/18/2018 What Was The Date Of Your Most Recent Tobacco Screening? 01/18/2018 [id number] Information not available 01/23/2020 Sex: Unknown Functional Status None recorded. Mental Status None recorded. 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 605534734 B35.1 Deformity of foot 286008 004 M21.969 Corns and callus 3893583 00 L84 Pain in lower limb 77570 006 M79.669 Stasis dermatitis 739416 05 I87.2 Health Concerns Section Related Observation LastModified by Organization Detai ls LastModified Time None Recorded Concern Status LastModified by Organization Details LastModified Time None Recorded Advance Directives Directive None Recorded Payers Encounter Date Sequence Insurance Name Policy Number Policy Kelley Covered Member ID Kelley Member ID Guarantor Name 01/18/2018 1 [place]: [employer] Jonah Bond [id number] Jonah Bond 01/18/2018 2 [facility] (MEDICARE SUPPLEMENT) Jonah Bond [id number] Jonah Bond Notes Date Note Type [...] at this time. Cricket Escalante, [place] [address] [place], [address], JASON Calvillo [facility] PE[place]. 01/18/2018 14:21:56
--- OUTSIDE RECORDS SUMMARY | 2024-05-31 15:31 | XMS_ITS | Patient Health Record ---
Author Organization [facility] Address [address] [place] [address] Care Team Providers Care Economic Development Director Name Role Phone MARIAH DSOUZA Primary Care Provider Steven Florence Unavailable [phone] Allergies No Known Allergies Reason For Referral [...] the morning Orally Once a day Active Immunizations Vaccine Route Administration Date Status Comme nts Influenza Unknown 11/27/2017 Administered Influenza Unknown 05/19/2022 Administered Social History Tobacco Use: Social History Observation Description Date Details (start date - stop date) Never Smoker NA - NA Tobacco Use/Smoking Question Answer Notes Patient is a nonsmoker Alcohol Screen Question Answer Notes Did you have a drink containing alcohol in the p ast year? No Points 0 Interpretation Negative Section Notes: Nonsmoker; no alcohol Nonsmoker; no alcohol Nonsmoker; no alcohol Nonsmoker; no alcohol Nonsmoker; no alcohol Problems Problem Type SNOMED Code ICD Code Onset Dates Problem Status W/U Status Risk Notes Problem 89690686 Rectal bleeding (K62.5) Active confirmed Problem Diverticular disease of colon (715910555) Diverticulosis of large intestine without perforation or abscess without bleeding (K57.30) Active confirmed Problem Crohn's disease of colon (23067498) Crohn's disease of colon (K50.10) Active confirmed Problem 06669848 Crohns disease without complication, unspecified gastrointestinal tract location (K50.90) Active confirmed Problem 49004512 Diarrhea, unspecified type (R19.7) Active confirmed Problem 7644803 Crohn''s disease of large intestine without complication (K50.10) Active confirmed Vital Signs Blood pressure diastolic 00 mm Hg 12/02/2023 Height 70 in 12/02/2023 Blood pressure systolic 00 mm Hg 12/02/2023 Weight 267 lbs 12/02/2023 BMI 38.31 kg/m2 12/02/2023 Encounters Encounter Location Date Provider Diagnosis [facility] [address] [place] [address] 12/02/2023 Steven Guan Crohns disease witho ut [...] advised of his progress. Plan Of Treatment Pending Test Test Name Order Date LIVER PROFILE 05/19/2022 CRP 05/19/2022 CBC w DIFF 05/19/2022 SED RATE (ESR) 05/19/2022 STOOL WBC 05/19/2022 C DIFFICILE RFLX PCR 05/19/2022 Future Test Test Name Order Date COLONOSCOPY 05/19/2022 Next Appt Details Provider Name:Steven Guan , 11/30/2024 09:20:00 AM, [address], [address], [place], [address], Insurance Providers Payer Name Payer Address Payer Phone Subscriber Number Group Number Insured Name Patient Relationship to Insured Coverage Start Date Coverage End Date MEDICARE OF [place] [address] [place] [address] [id number] SEDA BOND Self - patient is the insured [employer] [address] [place] [address] [phone] [id number] SEDA BOND Self - patient is the insured Medical (General) History Medical History History ICD Code Denies NM,DM,CVA,Lung disease,renal dise ase Crohn's colitis diagnosed in [...] and there was no H. 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 Biopsies throughout the colon were negative for any colitis and dysplasia Watchman procedure placed in 08/2023 at [facility]--Coumadin was stopped and he was started on Plavix, along with his aspirin. He is scheduled for a ELIANA on 12/16/2023 at [facility] Surgical History Surgery Date(Month/Year) Cholecystectomy Back surgery Vein surgery of LE's 04/2018 and 05/2018
== END 2024-05-31 13:44 | disposition home or self-care (01) ==
PROVIDERS: PCP Nurse Practitioner Family; Visit Provider Physician Assistant
DX: J06.9 Acute upper respiratory infection, unspecified (principal)

== ENCOUNTER 2024-05-31 13:05 | Outpatient (REF) | payer MEDICARE, OTHER, SELFPAY ==
--- NOTE | ~2024-05-31 | XR_ITS ---
EXAMINATION: XR CHEST CLINICAL INFORMATION: R05.9 - Cough, unspecified COMPARISON: April 17, 2024. TECHNIQUE: 2 views of the chest were obtained. FINDINGS: Prominence of the interstitial markings with a reticular pattern and linear opacities in the right lower hemithorax. No gross pleural effusion or pneumothorax. Cardiomediastinal silhouette is mildly prominent. Calcified plaques in the thoracic aortic arch. Multilevel thoracic spondylosis. XR/XR chest 2V IMPRESSION: Chronic interstitial lung disease. Probably scarring right middle lobe and lingula. Electronically signed by: Huang Kumari MD 05/31/2024 02:39 PM EST
== END 2024-05-31 13:06 | disposition home or self-care (01) ==
LOC: HO.HMGCX 13:05
PROVIDERS: PCP Nurse Practitioner Family; Visit Provider Physician Assistant
DX: J06.9 Acute upper respiratory infection, unspecified (principal); R05.9 Cough, unspecified
CPT/HCPCS: 71046; 99212

== ENCOUNTER → 2024-05-31 13:48 | Outpatient (BNV) | payer MEDICARE, OTHER, SELFPAY | PROVIDERS: PCP Nurse Practitioner Family; Visit Provider Radiology Diagnostic Radiology | DX: R05.9 Cough, unspecified (principal) | CPT/HCPCS: 71046 ==

== ENCOUNTER 2024-08-08 08:14 | Outpatient (AMB) | payer MEDICARE, OTHER, SELFPAY ==
--- OUTSIDE RECORDS SUMMARY | 2024-08-08 08:23 | XMS_ITS | Data Portability ---
Author Organization [facility] [address] Address [address] [place] [address] Care Team Providers Care Reciprocating Drill Operator Name Role Phone MARIAH DSOUZA Primary Care Provider [phone] Assessment No assessment recorded. Plan of Treatment Reminders Order Date Submit Date Provider Last Modified By Organization Details Last Modified Time Details Appointments None recorded. Lab None recorded. Referral emergency medicine referral - Chest pain started today, constant, Abnormal EKG, Afib . need further evaluation and treatment. 2022 023 [email or web address] 26 [facility], [address] [place] [address], [phone], 3 09:04:02 Procedures None recorded. Surgeries None recorded. Imaging electrocard iogram 2022 023 [email or web address] 106 _[facility], [address] [place] [address], [phone], 3 09:27:26 Medication Orders Children's Aspirin 81 mg chewable tablet 2022 023 [email or web address] Not available 09:24:46 Patient TargetsNo targets recorded. Patient Instructions Encounter Date Encounter Id Patient Instructions Last Modified By Organization Details Last Modified Time 05/24/2022 [id number] chest pain: care instructions [email or web address] Not available [...] am No observ ation record ed. [email or web address] [id number], [address], 05/24/2022 09:20:51 Result Notes None recorded. Problems Name Problem SNOMED Code Status Onset Date Resolution Date Notes Provider Name and Address Organization Details Recorded Time Hypertensive disorder 87191506 Active 2022 Shannen ortiz, [place] - [facility] 3 08:53:36 Hypercholestero lemia 40995269 Active 2022 Shannen ortiz, [place] - [facility] 3 08:53:43 Crohn's disease 14026428 Active 2022 Shannen Sanchez null, [place] - [facility] 3 08:53:48 Depressive disorder 25041791 Active 2022 Shannen ortiz, [place] - [facility] 3 08:53:57 Atrial fibrillation 93194856 Active 2022 Shannen ortiz, [place] - [facility] 3 08:59:52 Problem Notes None recorded. Procedures Surgical History Date Name Laterality Status Provider Name and Address Organization Details Recorded Time tonsillectomy completed Shannen Sanchez PA - [facility] 05/24/2022 08:55:35 cholecystectomy completed Shanenn ROSEN - [facility] 05/24/2022 08:55:42 ligation of varicose vein completed Shannen ROSEN - [facility] 05/24/2022 08:56:06 Imaging Results Imaging Date Name Status LastModified by Organization Details LastModified Time 05/24/2022 electrocardiogram completed [email or web address] [id number], [place], [address], 05/24/2022 09:20:51 Procedure Notes None recorded. Medical [...] and Address Organization Details Last Updated DateTime 177.8 cm 34.4 kg/m2 325285. 17 g 2 98 % 98 % 91 /min 18 /min 98 [degF] 116 mm[Hg] 74 mm[Hg] Shannen Sanchez [employer] 08:57:55 Social History Question Answer Notes LastModified by [facility] Details LastModified Time Tobacco Smoking Status Former Smoker 60 years ago Shannen ortiz [facility] 05/24/2022 08:55:07 Have You Recently Traveled Abroad? No Information not available 05/24/2022 Sex: Unknown Functional Status Question Answer Note LastModified by [facility] Details LastModified Time Do you use any illicit or recreational drugs? No Information not available 05/24/2022 Do you or have you ever used any other forms of tobacco or nicotine? No Information not available 05/24/2022 What is your level of alcohol consumption? None Information not available 05/24/2022 Mental Status None recorded. Family History Relationship [...] SNOMED-CT Code Diagnosis ICD10 Code Diagnosis Note [id number] [facility] [place] [address] 08/14/2017 08:55:53 08/14/2017 09:37:48 [id number] [facility] [address] [place] [address] 01/06/2021 16:43:45 01/06/2021 18:38:17 [id number] [place] [address] [facility] [place] [address] 05/24/2022 08:45:59 05/24/2022 09:27:26 Chest pain 89286458 R07.9 Paroxysmal atrial fibrillation 326917131 I48.0 AMA signed . refused Ambulance transfer. strongly encouraged to go straight to ED. [facility] ED notified about expected arrival. Health Concerns Section Related Observation LastModified by Organization Detai ls LastModified Time None Recorded Concern Status LastModified by Organization Details LastModified Time None Recorded Advance Directives Directive None Recorded Payers Insurance Date Sequence Insurance Name Policy Number Policy Kelley Covered Member ID Kelley Member ID Guarantor Name 05/24/2022 1 [place] [employer] Jonah Bond [id number] Jonah Bond 05/27/2022 2 [facility] Jonah Bond [id number] Jonah Bond Notes Date Note Type [...] Parag Dudley NP [address] [place], [address], [place] - [facility] 05/24/2022 09:33:38
--- OUTSIDE RECORDS SUMMARY | 2024-08-08 08:23 | XMS_ITS | Data Portability ---
Author Organization [facility] [employer] Address [address] [place] [address] Care Team Providers Care Strainer Tender Name Role Phone JESSICA DENSON Primary Care Provider JESSICA DENSON Referring Provider Assessment No assessment recorded. Plan of Treatment Reminders Order Date Submit Date Provider Last Modified By Organization Details Last Modified Time Details Appointments None recorded. Lab None recorded. Referral None recorded. Procedures None recorded. Surgeries None recorded. Imaging None recorded. Medication Orders triamcinol one acetonide 0.1 % lotion 2017 018 INTERFACE [id number], [address] [place], [place], [id number], 8 14:22:00 Patient TargetsNo targets recorded. Patient Instructions Encounter Date Encounter Id Patient Instructions Last Modified By Organization Details Last Modified Time 01/18/2018 [id number] TREATMENT: PVD Footcare: Exam patient from pedal [...] Address Organization Details Last Updated DateTime 01/18/2018 954024.1 3 g 35.2 kg/m2 177.8 cm 130 mm[Hg] 70 mm[Hg] maine ashton [place] - [facility] 8 13:10:34 Social History Question Answer Notes LastModified by Organizat ion Details LastModified Time Tobacco Smoking Status Former Smoker Not Available [facility] 01/23/2020 03:19:04 DATE LAST SEEN BY PCP 07/21/2017 [email or web address] Information not available 01/18/2018 What Was The Date Of Your Most Recent Tobacco Screening? 01/18/2018 [id number] Information not available 01/23/2020 Sex: Unknown Functional Status None recorded. Mental Status None recorded. 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 532831919 B35.1 Deformity of foot 959226 004 M21.969 Corns and callus 8146616 00 L84 Pain in lower limb 64920 006 M79.669 Stasis dermatitis 205745 05 I87.2 Health Concerns Section Related Observation LastModified by Organization Detai ls LastModified Time None Recorded Concern Status LastModified by Organization Details LastModified Time None Recorded Advance Directives Directive None Recorded Payers Encounter Date Sequence Insurance Name Policy Number Policy Kelley Covered Member ID Kelley Member ID Guarantor Name 01/18/2018 1 [place]IC[place] B-[place]: [employer] Jonah Bond [id number] Jonah Bond 01/18/2018 2 [facility] (MEDICARE SUPPLEMENT) Jonah Bond [id number] Jonah Bond Notes Date Note Type [...] at this time. Cricket Escalante, [place] [address] [place], [address], [facility]illo [facility] [place]. 01/18/2018 14:21:56
--- NOTE | 2024-08-08 08:52 | AM.OFFWIN_ITS ---
Intake Vital Signs 08/08/24 08:53 BP 122/70 Blood Pressure Location Lt brachial Position Sitting Respiration 20 Pulse 99 Pulse Source Pulse Oximeter Temp 98.2 F Temp Source Oral Pulse Oximetry (%) 97 Oxygen Delivery Method Room Air Intake Visit Reasons: EP-b/l legs rash Intake Note: Pt is here today for a walk in visit. Pt c/o rash on both lower legs for couple of months now. Patient Tobacco Use Status: Former Tobacco user Allergies oatmeal Allergy (Unknown, Uncoded 08/08/24 08:53) hives HPI HPI Comments History of Present Illness Details History of Present Illness - The patient is a 74-year-old male pres enting with worsening itchy dry skin on his legs. - This started months ago and has steadi ly worsened, presenting as a dry, itchy, and cracked skin on the ear and extending to the back. - He has tried Aquaphor with no relief. - No associated warmth or fevers - There is no recall of exposure to pote ntial irritants like plants, and the condition exacerbated during winter months. Physical Exam General: Cooperative, healthy appearing, comfortable, no acute distress and well developed Orientation: Patient oriented x3 Limitations: No limitations Head: Normal to inspection Ears: Hearing grossly normal bilaterally Nose: Normal External nose present Face and sinus: Normal facial exam Eyes: Appearance normal, both eyes and all related structures Neck: Normal visual inspection and Yes full ROM Respiratory: Normal respiratory effort and able to speak in complete sentences. Skin: Dry, cracked, slightly erythematous skin noted on bilateral lower extremites proximal to the ankles L>R, resembling eczema Neuro: Patient oriented x3 Extremities: Normal to inspection [facility] Medical History Presence of Watchman left atrial appendage closure device RANULFO (obstructive sleep apnea) BPH (benign prostatic hyperplasia) New onset a-fib Foreign body of finger of right hand Left anterior fascicular block (LAFB) Iron deficiency Depression Vertebral compression fracture PLMD (periodic limb movement disorder) PVD (peripheral vascular disease) Dyslipidemia HTN (hypertension) Crohn's disease Venous insufficiency of both lower extremities Surgical History History of cholecystectomy Status post endovenous radiofrequency ablation (RFA) of saphenous vein Family History Father Cancer of prostate Mother Anxiety Sister Breast cancer Sister Nephritis Sister No problems noted. Sister No problems noted. Sister No problems noted. Daughter Substance use disorder Mental health disorder Daughter No problems noted. Daughter No problems noted. Brother No problems noted. Brother No problems noted. Brother Epilepsy Paternal Grandfather Substance use disorder Social History Housing: House Alcohol intake: never Patient Tobacco Use Status: Former Tobacco user Years Smoked: 50 years ago e-Cigarette/Vaping Use: Never Used Second Hand Smoke Exposure: No service: Yes Current occupational status: retired Cognitive needs: No Hearing needs: No Vision needs: No Review of Systems Const All systems reviewed & are unremarkable except as noted in HPI and below Physical Exam Vital Signs: Last Vital Signs Temp 98.2 F 08/08/24 08:53 Pulse 99 08/08/24 08:53 Resp 20 08/08/24 08:53 BP 122/70 08/08/24 08:53 Pulse Ox 97 08/08/24 08:53 Oxygen Delivery Method Room Air 08/08/24 08:53 Assessment & Plan Assessment & Plan (1) Eczema of lower extremity: Code(s): L30.9 - Dermatitis, unspecified Plan: Plan The patient is prescribed triamcinolone cream for eczema, to be applied twice daily for one to two weeks to relieve symptoms of dry and cracked skin. Monitoring for response to the treatment is advised, and referral to dermatology may be considered if no improvement is observed. The medication has been sent to the pharmacy, and treatment should commence immediately, with follow-up based on symptom progression. Patient was informed and verbally consented to the use of an ambient scribe for clinic note documentation during this visit. Medications: New triamcinolone acetonide 0.1% 1 appl topical BID 80 grams 0RF Coding Level of Care Code Est Pt Level 3 (06217) Diagnoses Eczema of lower extremity L30.9
[2024-08-08 08:53] VITALS: BP 122/70; PULSE 99; RESP 20; TEMP 36.8; O2SAT 97
== END 2024-08-08 09:55 | disposition home or self-care (01) ==
PROVIDERS: PCP Nurse Practitioner Family; Visit Provider Physician Assistant
DX: L30.9 Dermatitis, unspecified (principal)

== ENCOUNTER → 2024-08-08 08:14 | Outpatient (BNVA) | payer MEDICARE, OTHER, SELFPAY | PROVIDERS: PCP Nurse Practitioner Family; Visit Provider Physician Assistant | DX: L30.9 Dermatitis, unspecified (principal) | CPT/HCPCS: 99212 ==

== ENCOUNTER 2024-10-31 08:02 | Outpatient (AMB) | payer MEDICARE, OTHER, SELFPAY ==
--- NOTE | 2024-10-31 08:20 | MHC.OFFWIV ---
Intake Vital Signs 10/31/24 08:21 Height 5 ft 10 in Weight 269 lb BMI 38.6 BP 102/58 L Blood Pressure Location Rt brachial Position Sitting Pulse 86 Pulse Source Pulse Oximeter Temp 97.9 F Temp Source Oral Pulse Oximetry (%) 98 Oxygen Delivery Method Room Air Intake Visit Reasons: EP-ears block Intake Note: presents with bilateral ear blockage, LT ear pain > RT Patient Tobacco Use Status: Former Tobacco user Allergies oatmeal Allergy (Mild, Uncoded 10/31/24 08:22) hives Do you need a note to return to daycare/school/sports/work: No HPI HPI Comments History of Present Illness Details History - The patient is a 74-year-old male presenting with impacted cerumen management. - Persistent pressure in the left ear due to cerumen impaction. - Ineffective cerumenolytics and unsuccessful Deprox use. - History of ineffective hearing aids and need for ear molds. - Excessive cerumen noted during ear mold fitting. Physical Exam Physical Exam General: Cooperative, healthy appearing, comfortable, no acute distress and well developed Orientation: Patient oriented x3 Limitations: No limitations Head: Normal to inspection Ears: External ears normal bilaterally, TM's with impacted cerumen in both ear canals Face and sinus: Normal facial exam Neck: Normal visual inspection and Yes full ROM Respiratory: Normal respiratory effort and able to speak in complete sentences. Skin: No rashes or lesions noted Neuro: Patient oriented x3 Extremities: normal to inspection [facility] Medical History Presence of Watchman left atrial appendage closure device RANULFO (obstructive sleep apnea) BPH (benign prostatic hyperplasia) New onset a-fib Foreign body of finger of right hand Left anterior fascicular block (LAFB) Iron deficiency Depression Vertebral compression fracture PLMD (periodic limb movement disorder) PVD (peripheral vascular disease) Dyslipidemia HTN (hypertension) Crohn's disease Venous insufficiency of both lower extremities Surgical History History of cholecystectomy Status post endovenous radiofrequency ablation (RFA) of saphenous vein Family History Father Cancer of prostate Mother Anxiety Sister Breast cancer Sister Nephritis Sister No problems noted. Sister No problems noted. Sister No problems noted. Daughter Substance use disorder Mental health disorder Daughter No problems noted. Daughter No problems noted. Brother No problems noted. Brother No problems noted. Brother Epilepsy Paternal Grandfather Substance use disorder Social History Housing: House Alcohol intake: never Patient Tobacco Use Status: Former Tobacco user Years Smoked: 50 years ago e-Cigarette/Vaping Use: Never Used Second Hand Smoke Exposure: No service: Yes Current occupational status: retired Cognitive needs: No Hearing needs: No Vision needs: No Review of Systems Const All systems reviewed & are unremarkable except as noted in HPI and below Physical Exam Vital Signs: Last Vital Signs Temp 97.9 F 10/31/24 08:21 Pulse 86 10/31/24 08:21 BP 102/58 L 10/31/24 08:21 Pulse Ox 98 10/31/24 08:21 Oxygen Delivery Method Room Air 10/31/24 08:21 BMI result Body Mass Index 38.6 Office Procedures Cerumen Removal Details: used both curette and irrigation on bilateal ears, TM's normal post removal From which ear canal was the cerumen removed: bilateral Removal: irrigation and otoscope w/curette Notes: patient tolerated procedure well, no complications and ear canal clear [id number] Irrigation/Lavage Assessment & Plan Assessment & Plan (1) Impacted cerumen of both ears: Code(s): H61.23 - Impacted cerumen, bilateral Plan: Plan Patient was informed and verbally consented to the use of an ambient scribe for clinic note documentation during this visit. Impacted Cerumen - Flush both ears, bilateral EAC's cleared - Pt noted hearing improved - TM's normal after removal of cerumen Orders: Orders AMB Cerumen Removal Today H61.23 - Impacted cerumen, bilateral Coding Level of Care Code Est Pt Level 4 (11259) Diagnoses Impacted cerumen of both ears H61.23 CPT Codes Office Procedure - CPT: 41779-Emk Irrigation/Lavage ([id number])
[2024-10-31 08:21] VITALS: BP 102/58; PULSE 86; TEMP 36.6; O2SAT 98; BMI 38.6
== END 2024-10-31 09:23 | disposition home or self-care (01) ==
PROVIDERS: PCP Nurse Practitioner Family; Visit Provider Physician Assistant
DX: H61.23 Impacted cerumen, bilateral (principal)

== ENCOUNTER → 2024-10-31 08:02 | Outpatient (BNVA) | payer MEDICARE, OTHER, SELFPAY | PROVIDERS: PCP Nurse Practitioner Family; Visit Provider Physician Assistant | DX: H61.23 Impacted cerumen, bilateral (principal) | CPT/HCPCS: 69209; 99212 ==

== ENCOUNTER 2024-11-13 13:37 | Outpatient (AMB) | payer MEDICARE, OTHER, SELFPAY ==
--- NOTE | 2024-11-13 13:49 | MHC.OFFWIV ---
Intake Vital Signs 11/13/24 13:51 BP 104/66 Blood Pressure Location Lt brachial Position Sitting Pulse 100 Pulse Source Pulse Oximeter Temp 98.4 F Temp Source Oral Pulse Oximetry (%) 99 Oxygen Delivery Method Room Air Intake Visit Reasons: EP Weak, fatigue, sob easily, heart flutter Intake Note: presents with weakness, fatigue, SOB, heart fluttering,mild nausea, rectal blood with mucous/black for 1 month Patient Tobacco Use Status: Former Tobacco user Allergies oatmeal Allergy (Mild, Uncoded 11/13/24 13:58) hives Do you need a note to return to daycare/school/sports/work: No HPI HPI Comments History of Present Illness Details History - The patient is a 74-year-old male presenting with symptoms of anemia and rectal bleeding. - The patient reports experiencing rectal bleeding for over a month, characterized by bright red blood in the toilet bowl, which occurs intermittently, lasting for a week and stopping for a few days before recurring. When he stands up, the blood sprays everywhere. - The patient has been experiencing worsenig shortness of breath and weakness. - The patient denies any chest pain but reports heart fluttering sensations. - The patient has a history of Crohn's disease and coronary artery disease. - The patient is not currently on blood thinners - He takes iron supplements along with vitamin D3 and calcium. Physical Exam General: Pale appearance, uncomfortable, no acute distress, and well developed Orientation: Patient oriented x3 Limitations: No limitations Head: Normal to inspection Ears: Hearing grossly normal bilaterally Eyes: conjunctival pallor Nose: Normal External nose present Face and sinus: Normal facial exam Mouth: normal, moist oral mucosa Eyes: Appearance normal, both eyes and all related structures Neck: Normal visual inspection and Yes full ROM Respiratory: Short of breath, able to speak in complete sentences. Clear to auscultation bilaterally Cardiac: regular rate and rhythm, normal S1 and S2 Skin: pale, palmar pallor, no rashes or lesions noted Neuro: Patient oriented x3 Extremities: moving all extremities normally [facility] Medical History Presence of Watchman left atrial appendage closure device RANULFO (obstructive sleep apnea) BPH (benign prostatic hyperplasia) New onset a-fib Foreign body of finger of right hand Left anterior fascicular block (LAFB) Iron deficiency Depression Vertebral compression fracture PLMD (periodic limb movement disorder) PVD (peripheral vascular disease) Dyslipidemia HTN (hypertension) Crohn's disease Venous insufficiency of both lower extremities Surgical History History of cholecystectomy Status post endovenous radiofrequency ablation (RFA) of saphenous vein Family History Father Cancer of prostate Mother Anxiety Sister Breast cancer Sister Nephritis Sister No problems noted. Sister No problems noted. Sister No problems noted. Daughter Substance use disorder Mental health disorder Daughter No problems noted. Daughter No problems noted. Brother No problems noted. Brother No problems noted. Brother Epilepsy Paternal Grandfather Substance use disorder Social History Housing: House Alcohol intake: never Patient Tobacco Use Status: Former Tobacco user Years Smoked: 50 years ago e-Cigarette/Vaping Use: Never Used Second Hand Smoke Exposure: No service: Yes Current occupational status: retired Cognitive needs: No Hearing needs: No Vision needs: No Review of Systems Const All systems reviewed & are unremarkable except as noted in HPI and below Physical Exam Vital Signs: Last Vital Signs Temp 98.4 F 11/13/24 13:51 Pulse 100 11/13/24 13:51 BP 104/66 11/13/24 13:51 Pulse Ox 99 11/13/24 13:51 Oxygen Delivery Method Room Air 11/13/24 13:51 Assessment & Plan Assessment & Plan (1) GI bleeding: Code(s): K92.2 - Gastrointestinal hemorrhage, unspecified Qualifiers: GI bleed type/associated pathology: unspecified gastrointestinal hemorrhage type Qualified Code(s): K92.2 - Gastrointestinal hemorrhage, unspecified Plan: Plan Patient was informed and verbally consented to the use of an ambient scribe for clinic note documentation during this visit GI bleed with likely anemia - 74 YO male with past med hx of Crohn's, HTN, CAD, RANULFO afib not on anticoagulant over one month of ongoing BRB in toilet. VSS, pt pale with conjunctival pallor, palmar pallor, ongoing lower GI bleed. Pt and his prefer an ambulance with his weakness and shortness of breath. - Called 911 for transport to [facility] [place] ED for workup. - Called [facility] ED with expect, spoke with Chris 2:15pm Coding Level of Care Code Est Pt Level 5 (12735) Diagnoses Gastrointestinal hemorrhage, unspecified gastrointestinal hemorrhage type K92.2 GI bleed type/associated pathology: unspecified gastrointestinal hemorrhage type
[2024-11-13 13:51] VITALS: BP 104/66; PULSE 100; TEMP 36.9; O2SAT 99
--- OUTSIDE RECORDS SUMMARY | 2024-11-13 14:29 | XMS_ITS | Clinical Summary ---
Author Organization [facility] Address [address] [place] [address] Care Team Providers Care Field Installation Technician Name Role Phone Corbin Thomas MD Unavailable [phone] Emile Chamorro Unavailable [phone] Steven Guan Unavailable No Pcp, Per Patient Primary Care Provider Steve Kelsey MD Unavailable Allergies Active Allergy Reactions Criticality Noted Date Comments Aspirin 07/04/2021 Worsens GI bleeding Atorvastatin Calcium 07/04/2021 muscle aches Colloidal Oatmeal 07/04/2021 Medications buPROPion XL (Wellbutrin XL) 150 mg 24 hr tablet Take 300 mg by mouth in the morning. And additional 50mg at night Active tamsulosin (Flomax) 0.4 mg 24 hr capsule tamsulosin 0.4 mg capsule Active rOPINIRole (Requip) 0.5 mg tablet Take 0.5 mg by mouth in the morning and 0.5 mg in the evening. Active FLUoxetine (PROzac) 40 mg capsule Take 40 mg by mouth in the morning. Active cholecalciferol, vitamin D3, 10 mcg (400 unit) capsule Take 2,000 Units by mouth in the morning. Active vder-RH-oyp-epa- GIB-XRFC-ux-mv 1.5 mg iron- 8.73 mg capsule,IR - delay rel,biphase Take by mouth in the morning. Active L. acidophilus/Bifi d. animalis (DAILY PROBIOTIC ORAL) Take by mouth. Active pediatric multivitamin no.28 (CHILD MULTIVITAMINS ORAL) Take by mouth in the morning. Active calcium carbonate 500 mg calcium (1,250 mg) tablet Take 1 tablet by mouth once daily. Active mesalamine (Lialda) 1.2 gram EC tablet Take 6 tablets by mouth with breakfast. Do not crush, chew, or split. Active metoprolol succinate XL (Toprol-XL) 25 mg 24 hr tabletIndication s:Paroxysmal atrial fibrillation (Multi-HCC) TAKE 1 TABLET(25 MG) BY MOUTH DAILY. DO NOT CRUSH OR CHEW 90 tablet 3 08/19/19 25 Active aspirin 81 mg EC tablet Take 81 mg by mouth once daily. Active rosuvastatin (Crestor) 5 mg tabletIndication s:Coronary artery disease involving diomede coronary artery of diomede heart without angina pectoris TAKE 1 TABLET(5 MG) BY MOUTH DAILY 90 tablet 3 08/29/19 25 Active torsemide (Demadex) 10 mg tabletIndication s:Coronary artery disease involving diomede coronary artery of diomede heart without angina pectoris,Left anterior fascicular block,Mixed hyperlipidemia,V enous insufficiency,Pe rmanent atrial fibrillation (Multi-HCC) TAKE 1 TABLET(10 MG) BY MOUTH DAILY 90 tablet 3 10/24/19 25 Active hydroCHLOROthiaz watson (HYDRODiuril) 25 mg tablet Take 25 mg by mouth in the morning. 022 Discontinued torsemide (Demadex) 10 mg tabletIndication s:Coronary artery disease involving diomede coronary artery of diomede heart without angina pectoris,Left anterior fascicular block,Mixed hyperlipidemia,V enous insufficiency,Pe rmanent atrial fibrillation (Multi-HCC) Take 1 tablet (10 mg) by mouth once daily. 90 tablet 3 10/26/19 24 025 Discontinued Active Problems Patient Care Coordination No te Formatting of this note migh t be different from the original. 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 2022 Coronary artery disease invo lving diomede coronary artery of diomede heart without angina pectoris 07/03/2021 Mixed hyperlipidemia 07/03/2021 Venous insufficiency 07/03/2021 Encounters Date Type Department Care Team Description 10/21/[address] [phone] Corbin Thomas MD Coronary artery disease involving diomede coronary artery of diomede heart without angina pectoris ; Left anterior fascicular block; Mixed hyperlipidemia ; Venous insufficiency; Permanent atrial fibrillation (Multi-HCC) 08/26/2024 [facility]ill [facility] [address] [phone] Corbin Thomas MD Coronary artery disease involving diomede coronary artery of diomede heart without angina pectoris 08/22/2024 2:20 PM EDT Office Visit [facility] [address] [phone] Corbin Thomas MD Permanent atrial fibrillation (Multi-HCC) (Primary Dx); Presence of Watchman left atrial appendage closure device; Coronary artery disease involving diomede coronary artery of diomede heart without angina pectoris ; Mixed hyperlipidemia 08/22/2024 Travel 08/18/2024 [facility]ill [facility] [address] [phone] Corbin Thomas MD Paroxysmal atrial fibrillation (Multi-HCC) from Last 3 Months Family History Medical History Relation Name Comments Atrial fibrillation Brother Coronary artery disease Father [place] a nd PPM at later age Relation Name Status Comments Brother Father Social History Tobacco Use Types Packs/Day Years Used Date Smoking Tobacco: Never Smokeless Tobacco: Never Sex and Gender Information Value Date Recorded Sex Assigned at Not on file Legal Sex Male 12:50 AM EST Gender Identity Not on file Sexual Orientation Not on file Last Filed Vital Signs Vital Sign Reading Time Taken Comments Blood Pressure 103/64 08/22/2024 2:40 PM EDT Pulse 72 08/22/2024 2:40 PM EDT Temperature 36.6 C (97.9 F) 04/19/2018 2:30 PM EST Respiratory Rate - - Oxygen Saturation 96% 08/22/2024 2:40 PM EDT Inhaled Oxygen Concentration - - Weight 120.2 kg (265 lb) 08/22/2024 2:40 PM EDT Height 177.8 cm (5' 10 ) 11/30/2023 12:43 PM EDT Body Mass Index 38.02 11/30/2023 12:43 PM EDT Plan of Treatment Upcoming Encounters Date Type Department Care Team (Late st Contact Info) Description 02/06/2025 2:20 PM EST Office Visit [facility] [address] [place] [phone] Corbin Thomas MD [address] [place] [address] Health Maintenance Due Date Last Done Comments Lipid Panel 1950 Diabetes Screening 01/13/1966 Hepatitis C Screening 01/13/1966 Zoster Vaccines (1 of 2) 01/13/1998 Medicare Annual Wellness (AWV) 08/28/2015 COVID-19 Vaccine ( season) 2023 05/07/2021, 08/23/2020, 07/26/2020 Depression Screening 03/29/2024 Influenza Vaccine (#1) 2024 , 11/17/2021, 01/24/2018, Additional history exists DTaP/Tdap/Td Vaccines (2 - Td or Tdap) 01/27/2026 01/28/2016, 04/16/2010 Pneumococcal Vaccine: 50+ Years Completed 03/24/2023, 03/29/2013, 04/26/2012 Pneumococcal Vaccine: Pediatrics (0 to 5 Years) and At-Risk Patients (6 to 49 Years) Discontinued 03/24/2023, 03/29/2013, 04/26/2012 HIB Vaccines Aged Out No longer eligi ble based on patient's age to complete this topic HPV Vaccines Aged Out No longer eligi ble based on patient's age to complete this topic Hepatitis A Vaccines Aged Out No long er eligible based on patient's age to complete this topic Hepatitis B Vaccines Aged Out No long er eligible based on patient's age to complete this topic IPV Vaccines Aged Out No longer eligi ble based on patient's age to complete this topic Meningococcal B Vaccine Aged Out No l onger eligible based on patient's age to complete this topic Meningococcal Vaccine Aged Out No ervin shwetha eligible based on patient's age to complete this topic Rotavirus Vaccines Aged Out No longer eligible based on patient's age to complete this topic Procedures Procedure Name Priority Date/Time Associated Diagnosis Comments ECG 12-LEAD Routine 08/22/2024 2:44 PM EDT Permanent atrial fibrillation (Multi-HCC) from Last 3 Months Results * ECG 12 lead (Back Office) (08/22/2024 2:44 PM EDT) Corbin Thomas MD ECG ORDERABLES Final Res ult from Last 3 Months Insurance MEDICARE PART A AND B [facility] Care Teams Field Installation Technician Relationship Specialty Start Date End Date No Pcp, Per Patient JASON PCP - General 05/28/23 Corbin Thomas MD [address] [place] [address] Management Associate Cardiology 03/24/22 Emile Chamorro [facility] [address] [place] [address] 03/24/22 Steven Guan [address] [place] [address] 06/05/22 Steve Escamilla MD [address] [place] [id number] Referring Physician Wellness Program Administrator 11/30/23
== END 2024-11-13 14:59 | disposition home or self-care (01) ==
PROVIDERS: PCP Nurse Practitioner Family; Visit Provider Physician Assistant
DX: K92.2 Gastrointestinal hemorrhage, unspecified (principal)

== ENCOUNTER 2024-11-13 14:42 | Inpatient (IN) | payer MEDICARE, OTHER, SELFPAY ==
[2024-11-13] VITALS (10 sets, daily range): BP systolic 110–121; BP diastolic 48–64; PULSE 78–90; RESP 12–18; TEMP 36.8–37.4; O2SAT 96–100; BMI 30.7
--- NOTE | ~2024-11-13 | XR_ITS ---
EXAMINATION: XR CHEST 1 VIEW HISTORY: shortness of breath COMPARISON: Comparison is made with the prior examination dated 05/31/2024. FINDINGS: A single AP portable view of the chest performed at 3:38 PM is submitted. The lungs are expanded and clear. There is no pleural effusion, pneumothorax, or pulmonary vascular congestion. The heart remains enlarged. The aorta is calcified. There is degenerative disc disease of the spine. XR/XR chest 1V IMPRESSION: Cardiomegaly. No acute cardiopulmonary abnormality. Electronically signed by: Steven Guerrero MD 11/13/2024 03:52 PM EDT
--- NOTE | ~2024-11-13 | CT_ITS ---
CLINICAL HISTORY: Lower GI bleed CTA abdomen and pelvis with and without IV contrast. 3D postprocessing Comparison: None Findings: Lung bases show no active disease. No dependent layering pleural effusions. The heart is not enlarged. Normal caliber abdominal aorta Right common iliac: 0.9 cm Left common iliac: 0.9 cm Hypogastric arteries:No aneurysms. Celiac axis: Normal caliber. Patent. Renal arteries: Normal caliber. SMA:Normal caliber. Patent. AIDEE; Patent. No extravasation of contrast to suggest active gastrointestinal hemorrhage demonstrated on this multiphase CT. Calcified atherosclerotic disease:Mild Liver normal size and contour. No focal hepatic lesions. Patent hepatic and portal veins. Post cholecystectomy Homogeneous enhancement of the pancreas. No splenomegaly. Normal adrenal glands. Symmetrical renal excretion with no segmental or diffuse renal parenchymal disease or evidence of obstructive uropathy/hydroureteronephrosis.Bilateral renal cortical cysts.. Bowel demonstrates a nonobstructive pattern. No free air. Normal appendix and terminal ileum. Diverticulosis coli without CT evidence of acute diverticulitis. No intraperitoneal or retroperitoneal pelvic or inguinal masses lymphadenopathy or abnormal fluid collections..Probable mild cystitis. Borderline prostatomegaly.. No vertebral body compression fractures or spondylolisthesis. No bony destructive lesions. Impression: 1. No abdominal aortic aneurysm or dissection 2. No evidence of active gastrointestinal hemorrhage demonstrated on this multiphase CT 3. Ancillary findings as described This document has been electronically signed by: Irwin Davies MD on 11/13/2024 18:25:57
--- NOTE | 2024-11-13 15:09 | ED.GENADULT ---
HPI - General Adult General Chief complaint: GI Bleed Stated complaint: RECTAL BLEED/BRIGHT RED,SOB X1W, FROM [facility] PER EMS Time Seen by Provider: 11/13/24 15:02 Source: patient Mode of arrival: EMS Limitations: no limitations History of Present Illness ED Provider: Dr. Nichols HPI narrative: This is a 74-year-old male history of AFib Watchman not anticoagulated, history of Crohn's disease, hypertension, venous insufficiency, leg edema, CAD presenting to ER today for evaluation of right rectal bleeding. Patient stated that this has been going on for a week now. It is worsening. Patient does feel some exertional shortness of breath with weakness. Denies any dizziness. He states he does have chronic diarrhea. Denies any abdominal pain. He does endorse history of hemorrhoids in the past. He had a recent colonoscopy with his GI doctor and endoscopy which was negative. Patient stated that during this week he had an incident where he stood up and he had a spray of blood from his rectum. This made him concerned therefore he went todaythe doctor office today for further evaluation. He is also concerned that he has been feeling increasingly weak. Based on his history his clinic called EMS and had patient brought to the ER for further evaluation. Related Data Home Medications ?Medication ?Instructions ?Recorded ?Confirmed fluoxetine 40 mg capsule 80 mg PO DAILY 02/26/20 02/29/24 rosuvastatin 5 mg tablet 5 mg PO DAILY 02/26/20 02/29/24 calcium 600 mg capsule 600 mg PO DAILY@1800 11/21/20 02/29/24 cholecalciferol (vitamin D3) 25 25 mcg PO DAILY@179911/21/20 02/29/24 mcg (1,000 unit) tablet ferrous sulfate 325 mg (65 mg 325 mg PO DAILY@179911/21/20 02/29/24 iron) tablet (Iron (ferrous sulfate)) multivitamin 1 tab PO DAILY@179911/21/20 02/29/24 metoprolol succinate 25 mg mg PO 07/16/22 02/29/24 tablet,extended release 24 hr torsemide 10 mg tablet 10 mg PO DAILY 09/23/23 02/29/24 aspirin 81 mg tablet,delayed 81 mg PO DAILY 11/18/23 02/29/24 release bupropion HCl 150 mg 24 hr tablet, 150 mg PO DAILY 11/18/23 02/29/24 extended release Previous Rx's ?Medication ?Instructions ?Recorded albuterol sulfate 90 mcg/actuation 2 puff inhalation Q6H PRN 05/23/24 aerosol inhaler shortness of breath or wheezing or cough #8.5 grams tamsulosin 0.4 mg capsule 0.8 mg (2 x 0.4 mg) PO DAILY 90 07/09/24 days #180 caps triamcinolone acetonide 0.1 % 1 appl topical BID #80 grams 08/08/24 topical cream Allergies Allergy/AdvReac Type Severity Reaction Status Date / Time oatmeal Allergy Mild hives Uncoded 11/13/24 15:07 Review of Systems Review of Systems: All other review of system negative except as mentioned in HPI [facility] Past Medical History [facility] Narrative: As mentioned in HPI Medical History Presence of Watchman left atrial appendage closure device RANULFO (obstructive sleep apnea) BPH (benign prostatic hyperplasia) New onset a-fib Foreign body of finger of right hand Left anterior fascicular block (LAFB) Iron deficiency Depression Vertebral compression fracture PLMD (periodic limb movement disorder) PVD (peripheral vascular disease) Dyslipidemia HTN (hypertension) Crohn's disease Venous insufficiency of both lower extremities Surgical History History of cholecystectomy Status post endovenous radiofrequency ablation (RFA) of saphenous vein Family History Family History Father Cancer of prostate Mother Anxiety Sister Breast cancer Sister Nephritis Sister No problems noted. Sister No problems noted. Sister No problems noted. Daughter Substance use disorder Mental health disorder Daughter No problems noted. Daughter No problems noted. Brother No problems noted. Brother No problems noted. Brother Epilepsy Paternal Grandfather Substance use disorder Social History Social History Housing: House Alcohol intake: never Patient Tobacco Use Status: Former Tobacco user Years Smoked: 50 years ago Smoked in Last 30 Days: No e-Cigarette/Vaping Use: Never Used Second Hand Smoke Exposure: No Use of substances other than those prescribed or required for medical reasons: No Advance Directives: No Advance Directives Information Provided: No Do you have a plan to hurt others: No Plan service: Yes Current occupational status: retired Cognitive needs: No Hearing needs: No Vision needs: No Physical Exam ED Exam Exam: General: Pleasant, no distress, he does appear to be pale Head: Normacephalic, atraumatic ENT: oral mucosa moist, neck supple, no tracheal deviation, slight pale and is under conjunctiva Cardiovascular: regular rate, regular rhythm, no murmurs, rubbing, gallops Respiratory: CTAB, no wheeze, rales, rhonchi Gastrointestinal: Soft, non distended, non tender, non guarding : Extremities: +2 pitting edema bilateral lower extremities Neurological: Awake and alert, no facial droop noted Skin: Warm and dry Psychiatric: Appropriate mood and thoughts Vital Signs: Vital Signs - 24 hr 11/13/24 17:09 11/13/24 18:12 11/13/24 18:20 Temperature 98.2 F 98.2 F 98.2 F Pulse Rate 90 84 84 Respiratory Rate 18 14 14 Blood Pressure 121/57 L 116/61 116/61 Pulse Oximetry 96 Oxygen Delivery Method Room Air 11/13/24 18:24 11/13/24 18:29 Temperature 98.8 F 99.3 F Pulse Rate 82 78 Respiratory Rate 12 12 Blood Pressure 120/60 119/54 L Pulse Oximetry Oxygen Delivery Method BMI result Body Mass Index 30.7 Medications Administered Discontinued Medications Generic Name Dose Route Start Last Admin Trade Name Freq PRN Reason Stop Dose Admin Lactated Ringer's 1,000 mls @ 999 mls/hr 11/13/24 15:30 11/13/24 17:15 Lr IV 11/13/24 16:30 Infused .Q1H1M EMBER Infusion Iohexol 100 ml 11/13/24 17:01 11/13/24 17:02 Iohexol 350 Mg/Ml 100 Ml Infus..Btl IV 11/13/24 17:02 80 ml ONCE ONE Administration Medical Decision Making Medical Decision Making [facility] Narrative: 74-year-old male history of Crohn's disease, AFib status post Watchman, not anticoagulated, chronic leg edema presented hospital today for weakness exertional shortness of breath in the setting of bright red blood from his rectum. Obtain a CBC, type and screen. We will assess for any signs of severe anemia or symptomatic anemia that may be causing his symptoms. A bolus IV fluid be provided to treat for potential dehydration. Screening EKG will be obtained as well we will obtain a troponin as well. He does have leg edema that is chronic in nature. A chest x-ray will be obtained as well. Unfortunately patient is in a hallway currently due to our bed status situation. Will plan to perform a rectal exam when we can provide appropriate privacy for the patient. We will plan to assess for any signs of obvious hemorrhoid or anal fissure. Given patient age and risk factors. We will obtain a CT angio of abdomen and pelvis to further assess for any signs of aortic or vessel involvement in regards to his rectal bleeding. Patient's lab work shows a hemoglobin 5.4. This is a significant drop from hemoglobin 11.1 back on 02/25/2024. I suspect this is secondary to his lower GI bleed that has been going on for quite some time. He is not anticoagulated at this time. Patient will be transfused [address] imaging is currently pending at this time. Given patient's significant drop in hemoglobin level and signs of lower GI bleeding, patient will likely need to be admitted to the hospital. Patient will be consented. I did perform a rectal exam. No sign of obvious hemorrhoids. There is some blood around the anus. However no sign of active GI bleeding. Patient will be signed out to oncoming provider pending CT imaging. I received sign-out from my colleague Dr. Nichols CT scan does not show any acute bleed. I discussed the patient with our hospitalist Dr. Peres and Dr. Novak, patient being admitted Differential Diagnosis Differential Diagnoses: The differential diagnosis associated with the presentation includes Rectal bleed, hemorrhoid, anal fissure, Crohn's disease, symptomatic anemia, dehydration Admission/Observation Consideration of admission/observation: Escalation of care including admission/observation considered Consult Healthcare Provider Management of the patient was discussed with: Electrification Adviser (Allergy Specialist) Lab Data MDM Lab Attestation statement: I reviewed the patient's lab results. 11/13/24 16:20 11/13/24 16:20 Labs: Lab Results 11/13/24 11/13/24 Range/Units 16:19 16:20 WBC 5.5 (4.8-10.8) X10*3/uL RBC 1.96 L D (4.60-5.80) X10*6/uL Hgb 5.4 L* D (14.0-18.0) g/dl Hct 17.7 L* D (42.0-52.0) % MCV 90.3 (80.0-98.0) fL MCH 27.6 (27.0-33.0) pg MCHC 30.5 L (31.0-36.0) g/dl RDW 16.9 H (11.0-16.0) % Plt Count 240 (160-400) X10*3/uL MPV 8.6 L (9.4-12.4) fL Immature Gran % (Auto) 0.5 H (0.0-0.4) % Neut % (Auto) 53.4 (45-73) % Lymph % (Auto) 27.1 (20-40) % Dixon % (Auto) 12.7 H (2-11) % Eos % (Auto) 5.4 H (0-4) % Baso % (Auto) 0.9 (0-2) % Lymph # (Auto) 1.5 (1.2-4.9) X10*3/uL Dixon # (Auto) 0.7 (0.1-1.2) X10*3/uL Eos # (Auto) 0.3 (0.0-0.4) X10*3/uL Baso # (Auto) 0.1 (0.0-0.2) X10*3/uL Abs Immat Gran (auto) 0.03 (0.00-0.03) X10*3/uL Absolute Neuts (auto) 3.0 (2.0-8.3) x10*3/uL Absolute Nucleated RBC 0.000 (0.0-0.012) X10*3/uL Nucleated RBC % (auto) 0.0 (0.0-0.2) /100WBC Sodium 144 (135-145) mmol/L Potassium 3.7 (3.3-5.1) mmol/L Chloride 112 H (96-108) mmol/L Carbon Dioxide 26 (22-29) mmol/L Anion Gap 10 L (12-20) BUN 14 (9-16) mg/dL Creatinine 0.68 (0.5-1.4) mg/dL Estim Creat Clear Calc 108.0 Estimated GFR > 60 Random Glucose 100 (60-115) mg/dL Lactic Acid 1.8 (0.5-2.0) mmol/L Calcium 7.7 L D (8.4-10.2) mg/dL Total Bilirubin 0.3 (0.0-1.0) mg/dL AST 23 (5-37) U/L ALT 7 (0-40) U/L Alkaline Phosphatase 76 (39-117) U/L Troponin I High Sens 4.6 (<3.5-35.0) ng/L Total Protein 5.5 L (6.5-8.0) g/dL Albumin 3.2 L (3.5-5.0) g/dL Lipase 23 (8-78) U/L Blood Type AB Positive Antibody Screen NEGATIVE Crossmatch See Detail Independent Interpretation I performed an independent interpretation of an: EKG and Plain X-Ray Radiology Impression Discussion of test interpretation with radiology: I have reviewed the radiologist's reading. Radiologist Impression: Liver normal size and contour. No focal hepatic lesions. Patent hepatic and portal veins. Post cholecystectomy Homogeneous enhancement of the pancreas. No splenomegaly. Normal adrenal glands. Symmetrical renal excretion with no segmental or diffuse renal parenchymal disease or evidence of obstructive uropathy/hydroureteronephrosis.Bilateral renal cortical cysts.. Bowel demonstrates a nonobstructive pattern. No free air. Normal appendix and terminal ileum. Diverticulosis coli without CT evidence of acute diverticulitis. No intraperitoneal or retroperitoneal pelvic or inguinal masses lymphadenopathy or abnormal fluid collections..Probable mild cystitis. Borderline prostatomegaly.. No vertebral body compression fractures or spondylolisthesis. No bony destructive lesions. Impression: 1. No abdominal aortic aneurysm or dissection 2. No evidence of active gastrointestinal hemorrhage demonstrated on this multiphase CT 3. Ancillary findings as described Independent Historian Clinical information obtained from an independent historian. History obtained from or confirmed by: Parent Critical Care Time Critical Care Time Critical Care Time: Yes Total Critical Care Time: 60 Attestation: I have personally provided critical care time. Time includes review of lab data, radiology results, discussion with consultants, and monitoring for potential decompensation. Intervention performed as documented. Discharge Plan Discharge Clinical Impression: Bright red rectal bleeding, Symptomatic anemia, Crohn's colitis Patient Disposition: Admitted As Inpatient Print Language: Amharic
--- NOTE | 2024-11-13 15:32 | ECG_ITS ---
Test Reason : WEAKNESS Blood Pressure : */* mmHG Vent. Rate : 89 BPM Atrial Rate : * BPM P-R Int : * ms QRS Dur : 108 ms QT Int : 424 ms P-R-T Axes : * -26 112 degrees QTcB Int : 515 ms Atrial fibrillation with premature ventricular or aberrantly conducted complexes Nonspecific ST and T wave abnormality Abnormal ECG When compared with ECG of 20-Nov-2020 21:33, Atrial fibrillation has replaced Sinus rhythm Vent. rate has increased by 30 bpm T wave inversion no longer evident in Anterolateral leads Referred By: Desiree Nichols Electronically Signed By: LIZETTE HENDRICKS MD
[2024-11-13] MEDS: Lactated Ringers 1,000 ML 999 ML IV (16:01)
[2024-11-13 16:25] LABS: MANUAL DIFF FLAG NO
[2024-11-13 16:32] LABS: Imm Gran Abs Auto 0.03 X10*3/uL (0.00-0.03); Imm Gran Pct Auto 0.5 % (0.0-0.4); Lymphocytes Absolute Auto 1.5 X10*3/uL (1.2-4.9); Mean Corpuscular HGB Conc 30.5 g/dl (31.0-36.0); Mean Corpuscular Hemoglobin 27.6 pg (27.0-33.0); Mean Corpuscular Volume 90.3 fL (80.0-98.0); NRBC Abs Auto 0.000 X10*3/uL (0.0-0.012); NRBC Pct Auto 0.0 /100WBC (0.0-0.2); Platelet Count 240 X10*3/uL (160-400); Red Blood Count 1.96 X10*6/uL (4.60-5.80); White Blood Count 5.5 X10*3/uL (4.8-10.8)
[2024-11-13 16:41] LABS: Hematocrit 17.7 % (42.0-52.0); Hemoglobin 5.4 g/dl (14.0-18.0)
[2024-11-13 16:42] LABS: Alanine Aminotransferase 7 U/L (0-40); Albumin Level 3.2 g/dL (3.5-5.0); Alkaline Phosphatase 76 U/L (39-117); Anion Gap 10 (12-20); Aspartate Amino Transferase 23 U/L (5-37); Blood Urea Nitrogen 14 mg/dL (9-16); Calcium 7.7 mg/dL (8.4-10.2); Carbon Dioxide 26 mmol/L (22-29); Chloride 112 mmol/L (96-108); Creatinine Clr Calc Pharmacy 108.0; Estimated Glomerular Filt Rate > 60; Lipase 23 U/L (8-78); Potassium 3.7 mmol/L (3.3-5.1); Sodium 144 mmol/L (135-145); Total Protein 5.5 g/dL (6.5-8.0)
[2024-11-13 16:50] LABS: Troponin-I High Sensitivity 4.6 ng/L (<3.5-35.0)
[2024-11-13] MEDS: iohexoL 350 MG/ML 100 ML INFUS..BTL IV (17:02)
--- NOTE | 2024-11-13 18:25 | PC.NURSE ---
TIM from Urgent care. Patient presents to Ed c/o rectal bleeding. PMH crohns, uriel insufficiency, iron deficiency, afib. Patient reports always having rectal bleeding but it has got worse over the last week. Denies pain, thinners, dizziness but reports feeling weak. HGb 5.4 HCT 17.7 Patient currently being transfused with first pack of RBC
--- NOTE | 2024-11-13 18:33 | PC.NURSE ---
Patient competed intial RBC infusion no side effects noted, patient now on maintenance infusion @ 100ml/hr
--- NOTE | 2024-11-13 19:19 | PM.IMHP ---
History of Present Illness Date of Service: 11/13/24 Chief Complaint: rectal bleed This has a 74-year-old male with pertinent history of Crohn's disease, major depressive disorder, BPH, permanent atrial fibrillation not on anticoagulation status post Watchman device, mixed hyperlipidemia, hypertension who presents to the emergency department for evaluation of bright red blood per rectum and weakness. Patient states it has been going on intermittently for a month but has worsened over the last 1 week. His symptoms have been progressive with multiple episodes of bright red blood in stool throughout the day. The episodes are painless and denies any abdominal discomfort. No nausea, vomiting. No fever or chills. Patient is complaining of associated generalized weakness and fatigue. Also reports minimal dyspnea with exertion. No chest pain, palpitations, changes in urinary habits. In the emergency department, hemoglobin was found to be 5.4 and 3 unit PRBC ordered Review of Systems Constitutional: Constitutional: Reports fatigue, Reports malaise and Reports weakness Cardiovascular: Cardiovascular: Reports no additional cardiovascular complaints Respiratory: Respiratory: Reports no additional respiratory complaints Gastrointestinal: Gastrointestinal: Reports hematochezia and Reports loose stools Genitourinary: Genitourinary: Reports no additional male genitourinary complaints Neurologic: Reports weakness Endocrine: Endocrine: Reports fatigue [facility] Medical History Presence of Watchman left atrial appendage closure device RANULFO (obstructive sleep apnea) BPH (benign prostatic hyperplasia) New onset a-fib Foreign body of finger of right hand Left anterior fascicular block (LAFB) Iron deficiency Depression Vertebral compression fracture PLMD (periodic limb movement disorder) PVD (peripheral vascular disease) Dyslipidemia HTN (hypertension) Crohn's disease Venous insufficiency of both lower extremities Family History Father Cancer of prostate Mother Anxiety Sister Breast cancer Sister Nephritis Sister No problems noted. Sister No problems noted. Sister No problems noted. Daughter Substance use disorder Mental health disorder Daughter No problems noted. Daughter No problems noted. Brother No problems noted. Brother No problems noted. Brother Epilepsy Paternal Grandfather Substance use disorder Surgical History History of cholecystectomy Status post endovenous radiofrequency ablation (RFA) of saphenous vein Social History Housing: House Alcohol intake: never Patient Tobacco Use Status: Former Tobacco user Years Smoked: 50 years ago Smoked in Last 30 Days: No e-Cigarette/Vaping Use: Never Used Second Hand Smoke Exposure: No Use of substances other than those prescribed or required for medical reasons: No Advance Directives: No Advance Directives Information Provided: No Do you have a plan to hurt others: No Plan service: Yes Current occupational status: retired Cognitive needs: No Hearing needs: No Vision needs: No Meds Allergies Allergy/AdvReac Type Severity Reaction Status Date / Time oatmeal Allergy Mild hives Uncoded 11/13/24 15:07 Home Medications ?Medication ?Instructions ?Recorded ?Confirmed ?Last Taken ?Type fluoxetine 40 mg capsule 80 mg PO DAILY 02/26/20 11/13/24 11/13/24 History rosuvastatin 5 mg tablet 5 mg PO DAILY 02/26/20 11/13/24 11/20/20 History cholecalciferol (vitamin D3) 25 25 mcg PO DAILY@1800 11/21/20 11/13/24 11/20/20 History mcg (1,000 unit) tablet ferrous sulfate 325 mg (65 mg 325 mg PO DAILY@1800 11/21/20 11/13/24 06/17/22 History iron) tablet (Iron (ferrous sulfate)) multivitamin 1 tab PO DAILY@1800 11/21/20 11/13/24 11/20/20 History metoprolol succinate 25 mg 25 mg PO DAILY 07/16/22 11/13/24 11/13/24 History tablet,extended release 24 hr torsemide 10 mg tablet 10 mg PO DAILY 09/23/23 11/13/24 11/12/24 History aspirin 81 mg tablet,delayed 81 mg PO DAILY 11/18/23 11/13/24 Unknown History release bupropion HCl 150 mg 24 hr tablet, 150 mg PO DAILY PRN Seasonal 11/18/23 11/13/24 Unknown History extended release Depression bupropion HCl 300 mg 24 hr tablet, 300 mg PO DAILY PRN 11/13/24 11/13/24 Unknown History extended release Depression calcium carbonate (Calcium 600) 600 mg PO DAILY 11/13/24 11/13/24 Unknown History triamcinolone acetonide 0.1 % 1 appl topical BID PRN Eczema 11/13/24 11/13/24 Unknown History topical cream Physical Exam Vital Signs and Narrative: Vital Signs: Last Vital Signs Temp 99.3 F 11/13/24 18:29 Pulse 78 11/13/24 18:29 Resp 12 11/13/24 18:29 BP 119/54 L 11/13/24 18:29 Pulse Ox 96 11/13/24 17:09 O2 Del Method Room Air 11/13/24 17:09 BMI result Body Mass Index 30.7 Const: Other: Middle-aged male lying in bed in no distress Neck supple, no JVD Regular rate and rhythm, S1-S2 heard Regular breath sounds bilaterally, no wheezing or crackles appreciated Abdomen soft nontender, no guarding, no rigidity Patient is awake, alert and oriented to self, place, time and person ; no focal motor deficit Psych: Normal mood No pedal edema Results Labs 11/13/24 16:20 11/13/24 16:20 Labs: Laboratory Results - last 24 hr 11/13/24 11/13/24 16:19 16:20 MCV 90.3 MCH 27.6 MCHC 30.5 L RDW 16.9 H Plt Count 240 MPV 8.6 L Immature Gran % (Auto) 0.5 H Neut % (Auto) 53.4 Lymph % (Auto) 27.1 Woodward % (Auto) 12.7 H Eos % (Auto) 5.4 H Baso % (Auto) 0.9 Lymph # (Auto) 1.5 Woodward # (Auto) 0.7 Eos # (Auto) 0.3 Baso # (Auto) 0.1 Abs Immat Gran (auto) 0.03 Absolute Neuts (auto) 3.0 Absolute Nucleated RBC 0.000 Nucleated RBC % (auto) 0.0 Anion Gap 10 L Estim Creat Clear Calc 108.0 Estimated GFR > 60 Random Glucose 100 Lactic Acid 1.8 Calcium 7.7 L D Total Bilirubin 0.3 AST 23 ALT 7 Alkaline Phosphatase 76 Total Protein 5.5 L Albumin 3.2 L Lipase 23 Blood Type AB Positive Antibody Screen NEGATIVE Crossmatch See Detail Imaging Radiologist's Impressions: Impressions Chest X-Ray 11/13/24 14:38 IMPRESSION: Cardiomegaly. No acute cardiopulmonary abnormality. Electronically signed by: Steven Guerrero MD 11/13/2024 03:52 PM EDT RP Assessment and Plan (1) Bright red rectal bleeding: Status: Acute (2) Symptomatic anemia: Status: Acute Plan This has a 74-year-old male with pertinent history of Crohn's disease, major depressive disorder, BPH, permanent atrial fibrillation not on anticoagulation status post Watchman device, mixed hyperlipidemia, hypertension who presents to the emergency department for evaluation of bright red blood per rectum and weakness. #. Acute symptomatic anemia due to painless bright red blood per rectum: Will admit patient with cardiac monitoring. 3 unit PRBC ordered in the ER. Closely monitor H&H. No active colitis on imaging, will hold off on steroids. Discussed with gastroenterology. Clear liquid diet. Hold home aspirin #. Permanent atrial fibrillation: Hold beta-rita in the setting of acute GI bleed #. Hypertension: Hold home antihypertensives #. BPH: On Flomax #. Mood disorder: Continue home mood stabilizers once med rec is complete Med rec pending DVT prophylaxis: SCDs Full code. Discussed with patient at bedside Admit as inpatient and will require two night minimum hospital stay for PRBC transfusion, close hemodynamic monitoring, monitoring of H&H (as above), which is not possible in a lesser acute setting. Specialist consult pending Quality Stroke Does the patient have a stroke diagnosis?: No VTE Prior VTE?: No VTE Risk Level:: Medical - moderate - high VTE Device Contraindication: N/A - Device Ordered VTE Drug Contraindication: Treatment Not Indicated
--- NOTE | 2024-11-13 19:56 | PHA.MEDREC ---
Addendum entered by Bridget Weldon RPh 11/13/24 20:28: [facility] REVIEWED Original Note: Pharmacy Consult ? Medication Reconciliation Pharmacy has completed the medication reconciliation. Spoke with pt and he confirmed his medications. Pt confirmed he takes Bupropion 150mg and 300mg tabs as needed for seasonal depression, he still takes Rosuvastatin 5mg tabs for cholesterol; pt has a hard time taking sometimes due to the pills being so tiny he cannot pick them up to take he states. Pt took Fluoxetine, Metoprolol and Tamsulosin this morning, Torsemide yesterday and everything else the pt was unsure the last time he took.
[2024-11-13 21:38] LABS: INTERNATIONAL NORM RATIO 1.2 (0.9-1.1); Prothrombin Time 13.4 SEC (10.9-12.4)
--- NOTE | 2024-11-13 22:35 | PC.NURSE ---
rbc was hung late- diffculty finding a cosigner. Blood bank was called- gave OK to hang rbc late. rbc currently infusing. RN at bedside with pt.
[2024-11-14] VITALS (13 sets, daily range): BP systolic 108–122; BP diastolic 56–64; PULSE 81–100; RESP 14–20; TEMP 36.6–37.7; O2SAT 95–98; BMI 38.4
--- NOTE | 2024-11-14 02:22 | PC.NURSE ---
Third bag of RBC's started with no issues or complications. Pt is tolerating it well. VSS. Breaths are even unlabored. No apparent distress noted. A-fib on the monitor with HR 80's. Abd soft and distended, no tenderness. Pt reports no pain at this time. Ambulates independently. Monitoring is ongoing.
[2024-11-14 05:48] LABS: Hematocrit 23.4 % (42.0-52.0); Hemoglobin 7.3 g/dl (14.0-18.0); Mean Corpuscular HGB Conc 31.2 g/dl (31.0-36.0); Mean Corpuscular Hemoglobin 28.5 pg (27.0-33.0); Mean Corpuscular Volume 91.4 fL (80.0-98.0); NRBC Abs Auto 0.000 X10*3/uL (0.0-0.012); NRBC Pct Auto 0.0 /100WBC (0.0-0.2); Platelet Count 251 X10*3/uL (160-400); Red Blood Count 2.56 X10*6/uL (4.60-5.80); White Blood Count 6.2 X10*3/uL (4.8-10.8)
[2024-11-14 06:05] LABS: Anion Gap 11 (12-20); Blood Urea Nitrogen 12 mg/dL (9-16); Calcium 7.9 mg/dL (8.4-10.2); Carbon Dioxide 24 mmol/L (22-29); Chloride 113 mmol/L (96-108); Creatinine Clr Calc Pharmacy 114.8; Estimated Glomerular Filt Rate > 60; Potassium 3.5 mmol/L (3.3-5.1); Sodium 144 mmol/L (135-145)
[2024-11-14] MEDS: Metoprolol Succinate ER 25 MG TAB.ER.24H PO (08:57)
--- NOTE | 2024-11-14 09:00 | PC.NURSE ---
assumed care of patient at 0700, patient is awake and alert, seen ambulating with steady gait to and from the bathroom. patient VSS, patient refused his torsemide and prozac this morning per MAY.
[2024-11-14 09:14] LABS: Iron 34 mcg/dL (45-160); Percent Iron Saturation 11 % (15-50); Total Iron Binding Capacity 318 mcg/dL (228-428); Unsaturated Iron Binding 284 ug/dL
[2024-11-14 09:29] LABS: Ferritin 24 ng/mL (20-250)
--- NOTE | 2024-11-14 10:33 | HO.PM.IMPN ---
Subjective Subjective Date of Service: 11/14/24 Interval History: feeling a bit better after transfusion Physical Exam Exam: Exam: General: AO X 3, no acute distress Resp: CTA bilateral, no accessory muscles used CVS: S1,S2,RRR GI: soft, non tender, non distended Neuro: motor grossly intact, alert Psych: appropriate affect, appropriate insight Vital Signs: Vital Signs: Last Vital Signs Temp 98.9 F 11/14/24 07:41 Pulse 100 11/14/24 07:41 Resp 16 11/14/24 07:41 BP 116/58 L 11/14/24 07:41 Pulse Ox 96 11/14/24 07:41 O2 Del Method Room Air 11/14/24 07:41 BMI result Body Mass Index 30.7 Objective Data Active Medications Acetaminophen (Acetaminophen 325 Mg Tablet) 650 mg PO Q6H PRN PRN Reason: Pain, Mild 1-3,fever,headache Atorvastatin Calcium (Atorvastatin Calcium 20 Mg Tablet) 20 mg PO DAILY [facility] Last Admin: 11/14/24 08:58 Dose: 20 mg Documented By: RYAN Bupropion HCl (Bupropion Hcl Xl 300 Mg Tab.Er.24h) 300 mg PO DAILY PRN PRN Reason: Seasonal Depression Bupropion HCl (Bupropion Hcl Xl 150 Mg Tab.Er.24h) 150 mg PO DAILY PRN PRN Reason: Seasonal Depression Calcium Carbonate (Calcium Carbonate 750 Mg Tab.Chew) 750 mg PO Q4H PRN PRN Reason: Heartburn Calcium Carbonate (Calcium Carbonate 750 Mg Tab.Chew) 750 mg PO DAILY [facility] Last Admin: 11/14/24 08:57 Dose: 750 mg Documented By: RYAN Fluoxetine HCl (Fluoxetine Hcl 20 Mg Capsule) 80 mg PO DAILY [facility] Last Admin: 11/14/24 08:57 Dose: Not Given Documented By: RYAN Non-Admin Reason: Patient Refused Magnesium Hydroxide (Milk Of Magnesia 30 Ml Oral.Susp) 30 ml PO DAILY PRN PRN Reason: Constipation Melatonin (Melatonin 3 Mg Tablet) 6 mg PO BEDTIME PRN PRN Reason: Insomnia Metoprolol Succinate (Metoprolol Succinate Er 25 Mg Tab.Er.24h) 25 mg PO DAILY [facility]; Protocol Last Admin: 11/14/24 08:57 Dose: 25 mg Documented By: RYAN Multivitamins/Vitamin C (Multivitamin Tablet) 1 tab PO DAILY@1800 [facility] Ondansetron HCl (Ondansetron Hcl 4 Mg/2 Ml Vial) 4 mg IVPUSH Q8H PRN PRN Reason: Nausea and Vomiting Sodium Chloride (0.9 % Sodium Chloride Flush 3 Ml Syringe) 3 ml IVFLUSH QSHIFT [facility] Last Admin: 11/14/24 07:46 Dose: Not Given Documented By: RYAN Non-Admin Reason: See Note Tamsulosin HCl (Tamsulosin Hcl 0.4 Mg Capsule) 0.8 mg PO DAILY [facility] Last Admin: 11/14/24 08:57 Dose: 0.8 mg Documented By: RYAN Torsemide (Torsemide 20 Mg Tablet) 10 mg PO DAILY [facility]; Protocol Last Admin: 11/14/24 09:00 Dose: Not Given Documented By: RYAN Non-Admin Reason: Patient Refused Vitamin D (Cholecalciferol (Vitamin D3) 25 Mcg Tablet) 25 mcg PO DAILY@1800 [facility] Labs 11/14/24 05:03 11/14/24 05:03 Labs: Laboratory Results - last 24 hr 11/13/24 11/13/24 11/13/24 16:19 16:20 21:13 MCV 90.3 MCH 27.6 MCHC 30.5 L RDW 16.9 H Plt Count 240 MPV 8.6 L Immature Gran % (Auto) 0.5 H Neut % (Auto) 53.4 Lymph % (Auto) 27.1 [place] % (Auto) 12.7 H Eos % (Auto) 5.4 H Baso % (Auto) 0.9 Lymph # (Auto) 1.5 [place] # (Auto) 0.7 Eos # (Auto) 0.3 Baso # (Auto) 0.1 Abs Immat Gran (auto) 0.03 Absolute Neuts (auto) 3.0 Absolute Nucleated RBC 0.000 Nucleated RBC % (auto) 0.0 Hold Purple Top SEE NOTE PT 13.4 H INR 1.2 H Anion Gap 10 L Estim Creat Clear Calc 108.0 Estimated GFR > 60 Random Glucose 100 Lactic Acid 1.8 Calcium 7.7 L D Iron TIBC % Saturation Unsat Iron Binding Ferritin Total Bilirubin 0.3 AST 23 ALT 7 Alkaline Phosphatase 76 Total Protein 5.5 L Albumin 3.2 L Lipase 23 Hold Yellow Top See Note Blood Type AB Positive Antibody Screen NEGATIVE Crossmatch See Detail 11/14/24 05:03 MCV 91.4 MCH 28.5 MCHC 31.2 RDW 16.6 H Plt Count 251 MPV 9.3 L Immature Gran % (Auto) Neut % (Auto) Lymph % (Auto) [place] % (Auto) Eos % (Auto) Baso % (Auto) Lymph # (Auto) [place] # (Auto) Eos # (Auto) Baso # (Auto) Abs Immat Gran (auto) Absolute Neuts (auto) Absolute Nucleated RBC 0.000 Nucleated RBC % (auto) 0.0 Hold Purple Top PT INR Anion Gap 11 L Estim Creat Clear Calc 114.8 Estimated GFR > 60 Random Glucose 91 Lactic Acid Calcium 7.9 L Iron 34 L TIBC 318 % Saturation 11 L Unsat Iron Binding 284 Ferritin 24 Total Bilirubin AST ALT Alkaline Phosphatase Total Protein Albumin Lipase Hold Yellow Top Blood Type Antibody Screen Crossmatch Assessment and Plan (1) GI bleeding: Status: Acute Plan 74M PMH Crohn's, major depressive disorder, BPH, permanent AFib not on anticoagulation due to GI bleed status post Watchman, hyperlipidemia hypertension presented with bright red blood per rectum found to have hemoglobin of 5.3 Acute blood loss anemia due to GI bleed Transfused 3 units PRBC hemoglobin improved to 7.3. Hold aspirin, GI eval, monitor hemoglobin Permanent AFib Status post Watchman, holding aspirin for GI bleed Continue Toprol BPH Flomax Mood disorder Fluoxetine DVT prophylaxis-mechanical due to GI bleed Full Code reason for continued hospitalization: Active GI bleed Quality Stroke Does the patient have a stroke diagnosis?: No VTE Prior VTE?: No VTE Risk Level:: Medical - moderate - high VTE Device Contraindication: N/A - Device Ordered VTE Drug Contraindication: Treatment Not Indicated
--- NOTE | 2024-11-14 12:39 | MHC.CM.PN ---
CM met with Patient and his /HCP/Marco at [facility], in the Ed, and addressed IMM with them, providing Patient with the original and a copy will be placed on the chart. Patient lives in a house with his and he recently started using a cane. Home/self care is the goal and CM has initiated and will follow for dc planning. PCP is Dr. Emile Chamorro and will transport to home at time of dc.
--- NOTE | 2024-11-14 14:35 | PC.NURSE ---
patinet 1 unit PRBC started per TAR, running at 100ml/hr. patient is alert an ambulatory, patient at bedside given update, noted to be tearful at this time regarding not having update from GI. informed GI may come down later regarding their schedule. patient resp even and unlabored, denies any pain at this time.
--- NOTE | 2024-11-14 19:20 | P.EN_ITS ---
Event Note Date of Service: 11/14/24 Event Note: GI Consult-Full note dictated-History from patient and EMR. Imp:74 yo male with known history of Crohn's colitis and diverticulosis presenting with at least 1 month of progressive rectal bleeding with associated diarrhea and mucous. He denies abdominal pain, fevers, melena, N/V, recent antibiotic use/NSAIDs use/travel. He reports ongoing bleeding with BM's today, although the bleeding seems less. He is now s/p 4u PRBC's. Diff dx: Although no abdominal pain and negative CT in regard to any signs of colitis, I suspect this is a Crohn's flare given the longevity and persistence of the symptoms as opposed to a diverticular bleed. Rec: IV steroids, Full liquids for now, monitor Hgb and transfuse as needed. Given a negative colonoscopy in 2022, I don't think he needs a colonoscopy at this time. However, if things do not improve I would then recommend a col onoscopy for definitive evaluation. D/W patient in detail and he is comfortable with this plan. Thanks Time Spent With Patient Time: Total time managing care of this patient today ____ minutes.
[2024-11-14] MEDS: Hydrocortisone Sod Succ/PF 100 MG VIAL 50 MG IVPUSH (19:56)
[2024-11-15] VITALS (8 sets, daily range): BP systolic 102–133; BP diastolic 57–72; PULSE 77–100; RESP 16–20; TEMP 36.4–36.8; O2SAT 94–100
[2024-11-15] MEDS: 0.9 % Sodium Chloride Flush 3 ML SYRINGE IVFLUSH ×4 (00:20→21:28)
[2024-11-15] MEDS: Hydrocortisone Sod Succ/PF 100 MG VIAL 50 MG IVPUSH ×3 (03:48→21:27)
--- NOTE | 2024-11-15 04:02 | CONS_ITS ---
DATE OF SERVICE: 11/14/2024 REASON FOR CONSULTATION: History of Crohn's disease, rectal bleeding, and anemia. HISTORY OF PRESENT ILLNESS: The patient is a 74-year-old male, known to me from prior office visits with a known history of Crohn's colitis. I last saw him in November of 2023, at which time, he was doing well on his regimen of mesalamine 4.8 g daily. He was not having any particular issues with diarrhea or bleeding. His last colonoscopy was in May of 2022, which was negative for any active Crohn's disease and polyps. There were some internal hemorrhoids and diverticulosis. There was no sign of any colitis or dysplasia on the biopsies. The patient had previously been on Coumadin for atrial fibrillation, but this was discontinued after he underwent a Watchman procedure in August of 2023. He had been feeling well up until at least the past month when he describes the onset of persistent and progressive bleeding. This was associated with some diarrhea with associated mucus. His stools ranged from somewhat dark to brown. Over the last week or so, he reports the bleeding became more in frequency and amount and was associated with weakness and short of breath. He finally came to the ER, at which time he was found to have a hemoglobin of 5.4. He denies any abdominal pain, abdominal cramps, fevers, nausea, nor vomiting. He has not noticed any jaundice. He denies any recent use of antibiotics or NSAIDs. He denies any ill contacts or travel. Since admission here, he has received a total of 4 units of blood with hemoglobin originally 5.4 and repeat this morning of 7.3. He did receive another unit of blood after the hemoglobin of 7.3 was obtained. CURRENT MEDICATIONS: Include acetaminophen, atorvastatin, bupropion, Tums, vitamin D, fluoxetine, melatonin, vitamins, tamsulosin, and torsemide. PAST MEDICAL HISTORY: Crohn's colitis diagnosed in 2012 while living in [place], [place]. Colonoscopy in 2022 was negative for any active Crohn's disease or polyps. Atrial fibrillation, status post Watchman procedure in 2023. He had previously been on Coumadin and then was on Plavix for a while after the Watchman procedure. He has sleep apnea. Upper endoscopy in 2015 in [place], [place], described a mild stricture which was dilated by the sanding machine buffer at that time. There is no reported history of [place], diabetes, or stroke. PAST SURGICAL HISTORY: Include cholecystectomy, back surgery, and vein surgery. FAMILY HISTORY: Negative for colorectal cancer nor inflammatory bowel disease. SOCIAL HISTORY: He is . 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 He does not smoke nor use any significant amounts of alcohol. REVIEW OF SYSTEMS: CONSTITUTIONAL: He has been progressively weak and short of breath. His appetite has been diminished. CARDIAC: No chest pain. PULMONARY: No coughing or hemoptysis. GI: As above. URINARY: No dysuria. No hematuria. PHYSICAL EXAMINATION: GENERAL: The patient is a pale, alert male. He is somewhat dyspneic at rest with oxygen by nasal cannula. SKIN: Warm and dry. NECK: Supple. CARDIAC: Normal S1, S2. ABDOMEN: Soft, nondistended. Normal bowel sounds and nontender. LABORATORY DATA: As above. White blood cell count today 6.2, hemoglobin 7.3, platelets 251,000. PT 13.4 with INR 1.2. Normal electrolytes. BUN 12, creatinine 0.6, iron 34, iron saturation 11%, ferritin 24. LFTs normal. Albumin 3.2, lipase 23. He did have a CT scan last evening, which did not show any sign of active GI bleeding or any active colitis. There was no sign of any bowel obstruction. IMPRESSION: Given the patient's clinical history, I suspect this is a flare of his Crohn's disease in spite of him not having any particular abdominal pain. Initially, based on the description of painless bleeding, I thought this might be more consistent with diverticular bleeding, but given the longevity of his symptoms at this point with associated diarrhea, this seems more consistent with his Crohn's disease. As such, I shall put him on a course of IV steroids to see if we can quiet things down in that regard. I would continue his liquid diet and continue monitoring of his hemoglobin with transfusions as needed. I have ordered stool specimens as well, including Clostridium difficile and fecal calprotectin level. I do not think he requires a colonoscopy, given his negative exam in 2022, but if the symptoms persist, then we may need to do that to further assess the situation. This has been reviewed with the patient in detail and he is comfortable with the plan. Thanks for the consultation. MD SEPIDEH Martínez/HARMAN / [phone] MATTY
[2024-11-15 08:01] LABS: Hematocrit 26.3 % (42.0-52.0); Hemoglobin 8.3 g/dl (14.0-18.0); Mean Corpuscular HGB Conc 31.6 g/dl (31.0-36.0); Mean Corpuscular Hemoglobin 28.6 pg (27.0-33.0); Mean Corpuscular Volume 90.7 fL (80.0-98.0); NRBC Abs Auto 0.000 X10*3/uL (0.0-0.012); NRBC Pct Auto 0.0 /100WBC (0.0-0.2); Platelet Count 252 X10*3/uL (160-400); Red Blood Count 2.90 X10*6/uL (4.60-5.80); White Blood Count 7.3 X10*3/uL (4.8-10.8)
[2024-11-15 08:15] LABS: Anion Gap 11 (12-20); Blood Urea Nitrogen 11 mg/dL (9-16); Calcium 8.3 mg/dL (8.4-10.2); Carbon Dioxide 25 mmol/L (22-29); Chloride 110 mmol/L (96-108); Creatinine Clr Calc Pharmacy 132.4; Estimated Glomerular Filt Rate > 60; Potassium 3.9 mmol/L (3.3-5.1); Sodium 142 mmol/L (135-145)
[2024-11-15] MEDS: Metoprolol Succinate ER 25 MG TAB.ER.24H PO (08:47)
--- NOTE | 2024-11-15 10:48 | MHC.CM.PN ---
Per ROUNDS discussion, Patient is not yet medically cleared for dc (advancing diet); home is the goal and CM will continue to follow.
--- NOTE | 2024-11-15 15:42 | P.PNIM_ITS ---
Subjective Subjective Date of Service: 11/15/24 Interval History: No acute issues overnight. No further bleeding noted. Stool formed Review of Systems Denies chest pain Denies shortness of breath Denies nausea vomiting diarrhea Denies fever chills Physical Exam 2 Vital Signs: Vital Signs: Last Vital Signs Temp 97.6 F 11/15/24 15:42 Pulse 87 11/15/24 15:42 Resp 18 11/15/24 15:42 BP 120/65 11/15/24 15:42 Pulse Ox 94 11/15/24 15:42 O2 Del Method Room Air 11/15/24 15:42 O2 Flow Rate 1.5 11/15/24 11:00 BMI result Body Mass Index 38.4 Const: Other: Awake alert no acute distress Resp: Other: Clear to auscultation bilaterally no rales rhonchi or wheezes Cardio: Other: No S4; positive S1-S2; no S3 murmurs rubs or gallops GI: Other: Soft nontender nondistended normoactive bowel sounds Extrem: Other: No edema bilaterally Objective Data Active Medications Acetaminophen (Acetaminophen 325 Mg Tablet) 650 mg PO Q6H PRN PRN Reason: Pain, Mild 1-3,fever,headache Atorvastatin Calcium (Atorvastatin Calcium 20 Mg Tablet) 20 mg PO DAILY [facility] Last Admin: 11/15/24 08:47 Dose: 20 mg Documented By: EZEKIEL Bupropion HCl (Bupropion Hcl Xl 300 Mg Tab.Er.24h) 300 mg PO DAILY PRN PRN Reason: Seasonal Depression Bupropion HCl (Bupropion Hcl Xl 150 Mg Tab.Er.24h) 150 mg PO DAILY PRN PRN Reason: Seasonal Depression Calcium Carbonate (Calcium Carbonate 750 Mg Tab.Chew) 750 mg PO Q4H PRN PRN Reason: Heartburn Calcium Carbonate (Calcium Carbonate 750 Mg Tab.Chew) 750 mg PO DAILY [facility] Last Admin: 11/15/24 08:47 Dose: 750 mg Documented By: EZEKIEL Fluoxetine HCl (Fluoxetine Hcl 20 Mg Capsule) 80 mg PO DAILY [facility] Last Admin: 11/15/24 08:43 Dose: Not Given Documented By: EZEKIEL Non-Admin Reason: Patient Refused Hydrocortisone Sodium Succinate (Hydrocortisone Sod Succ/Pf 100 Mg Vial) 50 mg IVPUSH Q8H [facility] Last Admin: 11/15/24 11:35 Dose: 50 mg Documented By: EZEKIEL Magnesium Hydroxide (Milk Of Magnesia 30 Ml Oral.Susp) 30 ml PO DAILY PRN PRN Reason: Constipation Melatonin (Melatonin 3 Mg Tablet) 6 mg PO BEDTIME PRN PRN Reason: Insomnia Metoprolol Succinate (Metoprolol Succinate Er 25 Mg Tab.Er.24h) 25 mg PO DAILY [facility]; Protocol Last Admin: 11/15/24 08:47 Dose: 25 mg Documented By: EZEKIEL Multivitamins/Vitamin C (Multivitamin Tablet) 1 tab PO DAILY@1800 [facility] Last Admin: 11/14/24 18:27 Dose: 1 tab Documented By: RYAN Ondansetron HCl (Ondansetron Hcl 4 Mg/2 Ml Vial) 4 mg IVPUSH Q8H PRN PRN Reason: Nausea and Vomiting Sodium Chloride (0.9 % Sodium Chloride Flush 3 Ml Syringe) 3 ml IVFLUSH QSHIFT [facility] Last Admin: 11/15/24 08:47 Dose: 3 ml Documented By: EZEKIEL Tamsulosin HCl (Tamsulosin Hcl 0.4 Mg Capsule) 0.8 mg PO DAILY [facility] Last Admin: 11/15/24 08:48 Dose: 0.8 mg Documented By: EZEKIEL Torsemide (Torsemide 20 Mg Tablet) 10 mg PO DAILY [facility]; Protocol Last Admin: 11/15/24 08:42 Dose: Not Given Documented By: EZEKIEL Non-Admin Reason: Patient Refused Vitamin D (Cholecalciferol (Vitamin D3) 25 Mcg Tablet) 25 mcg PO DAILY@1800 [facility] Last Admin: 11/14/24 18:27 Dose: 25 mcg Documented By: RYAN Labs 11/15/24 07:28 11/15/24 07:28 Labs: Laboratory Results - last 24 hr 11/13/24 11/15/24 16:20 07:28 MCV 90.7 MCH 28.6 MCHC 31.6 RDW 16.9 H Plt Count 252 MPV 9.2 L Absolute Nucleated RBC 0.000 Nucleated RBC % (auto) 0.0 ESR 22 H Anion Gap 11 L Estim Creat Clear Calc 132.4 Estimated GFR > 60 Random Glucose 118 H Calcium 8.3 L C-Reactive Protein 1.65 H Crossmatch See Detail Assessment and Plan (1) GI bleeding: Status: Acute (2) Crohn's colitis: Status: Acute (3) A-fib: Status: Acute Plan 74M PMH Crohn's, major depressive disorder, BPH, permanent AFib not on anticoagulation due to GI bleed status post Watchman, hyperlipidemia hypertension presented with bright red blood per rectum found to have hemoglobin of 5.3 1.Acute blood loss anemia due to GI bleed -GI evaluation noted. Likely crohn's flare -hydrocortisone q.8 hours as ordered -advance diet as tolerated 2.Permanent AFib -acceptable control on current therapies -continue to hold aspirin -adjust as indicated 3.Mood disorder -stable and well compensated Boots Full Code reason for continued hospitalization: Active GI bleed Quality Stroke Does the patient have a stroke diagnosis?: No VTE Prior VTE?: No VTE Risk Level:: Medical - moderate - high VTE Device Contraindication: N/A - Device Ordered VTE Drug Contraindication: Treatment Not Indicated
--- NOTE | 2024-11-15 23:58 | P.PNGI_ITS ---
Subjective Subjective Date of Service: 11/15/24 Interval History: History from patient and his RN. Patient seen earlier today at 1:00PM. He reports feeling better. Approx. 3 soft brown BM's. He denies any further bleeding. Denies abdominal pain. Tolerating full liquids. Critical Care Time (minutes): 0 Physical Exam 2 Vital Signs: Vital Signs: Last Vital Signs Temp 98.3 F 11/15/24 23:27 Pulse 89 11/15/24 23:27 Resp 18 11/15/24 23:27 BP 105/57 L 11/15/24 23:27 Pulse Ox 97 11/15/24 23:27 O2 Del Method Room Air 11/15/24 23:27 O2 Flow Rate 1.5 11/15/24 11:00 BMI result Body Mass Index 38.4 Const: General: cooperative, healthy appearing, comfortable, no acute distress, well developed, alert and awake GI: Other: Abd- +BS, soft NT Skin: Other: Warm and dry Objective Data Labs 11/15/24 07:28 11/15/24 07:28 Labs: Laboratory Results - last 24 hr 11/15/24 07:28 WBC 7.3 RBC 2.90 L Hgb 8.3 L Hct 26.3 L MCV 90.7 MCH 28.6 MCHC 31.6 RDW 16.9 H Plt Count 252 MPV 9.2 L Absolute Nucleated RBC 0.000 Nucleated RBC % (auto) 0.0 ESR 22 H Sodium 142 Potassium 3.9 Chloride 110 H Carbon Dioxide 25 Anion Gap 11 L BUN 11 Creatinine 0.62 Estim Creat Clear Calc 132.4 Estimated GFR > 60 Random Glucose 118 H Calcium 8.3 L C-Reactive Protein 1.65 H Procedures Date of Service Date of Service: 11/15/24 Progress Note: A&P Assessment and plan (1) Lower GI bleed: Status: Acute (2) Crohn's disease: Status: Acute (3) GI bleeding: Status: Acute Assessment and Plan: IMP/RECS: Lower GI bleeding, diarrhea, Crohn's--things seem much improved since admission. It appears that a Crohn's flare with the diarrhea, bleeding , and mucous seems to be the most likely scenario, even though the fecal calprotectin level is only just above normal and there was no evidence of active colitis on the CT. A diverticular bleed was the other possibility but the clinical features don't fit that completely either. In any event he is seemingly doing much better on the IV steroids. I would recommend advancing his diet, changing to po steroids, D/C on 10/28 if remaining stable, and then having a relatively rapid prednisone taper as an outpatient from 40mg with a decrease of 10mg/week . D/W patient in detail and he is comfortable with this plan. Thanks. Time Spent With Patient Time: Total time managing care of this patient today ____ minutes. Quality Stroke Does the patient have a stroke diagnosis?: No VTE Prior VTE?: No VTE Risk Level:: Medical - moderate - high VTE Device Contraindication: N/A - Device Ordered VTE Drug Contraindication: Treatment Not Indicated
[2024-11-16 03:18] VITALS: BP 108/62; PULSE 87; RESP 20; TEMP 36.6; O2SAT 98
[2024-11-16 06:27] LABS: MANUAL DIFF FLAG NO
[2024-11-16 06:30] LABS: Hematocrit 24.5 % (42.0-52.0); Hemoglobin 7.8 g/dl (14.0-18.0); Imm Gran Abs Auto 0.02 X10*3/uL (0.00-0.03); Imm Gran Pct Auto 0.3 % (0.0-0.4); Lymphocytes Absolute Auto 1.1 X10*3/uL (1.2-4.9); Mean Corpuscular HGB Conc 31.8 g/dl (31.0-36.0); Mean Corpuscular Hemoglobin 29.2 pg (27.0-33.0); Mean Corpuscular Volume 91.8 fL (80.0-98.0); NRBC Abs Auto 0.000 X10*3/uL (0.0-0.012); NRBC Pct Auto 0.0 /100WBC (0.0-0.2); Platelet Count 251 X10*3/uL (160-400); Red Blood Count 2.67 X10*6/uL (4.60-5.80); White Blood Count 6.7 X10*3/uL (4.8-10.8)
[2024-11-16 07:07] VITALS: BP 96/56; PULSE 82; RESP 18; TEMP 36.4; O2SAT 93
[2024-11-16] MEDS: Metoprolol Succinate ER 25 MG TAB.ER.24H PO (09:24)
[2024-11-16] MEDS: 0.9 % Sodium Chloride Flush 3 ML SYRINGE IVFLUSH (09:31)
[2024-11-16 10:01] VITALS: BP 126/62
[2024-11-16 11:35] VITALS: BP 96/51; PULSE 77; RESP 16; TEMP 36.8; O2SAT 96
--- NOTE | 2024-11-16 13:14 | P.DS_ITS ---
DS: Providers Provider Date of Service: 11/16/24 Date of admission: 11/13/24 19:18 Date of discharge: 11/16/24 Primary care physician: RADHA Garcia- Consults: 11/13/24 19:18 Consult to Gastroenterology Routine Consulting Provider: Steven Guan Reason for consultation: GI bleed DS: Diagnosis Discharge Diagnosis (1) Lower GI bleed: Status: Acute (2) Crohn's disease: Status: Acute (3) GI bleeding: Status: Acute DS: Summary Hospital Course Hospital Course: 74-year-old male with pertinent history of Crohn's disease, major depressive disorder, BPH, permanent atrial fibrillation not on anticoagulation status post Watchman device, mixed hyperlipidemia, hypertension who presents to the emergency department for evaluation of bright red blood per rectum and weakness. Patient states it has been going on intermittently for a month but has worsened over the last 1 week. His symptoms have been progressive with multiple episodes of bright red blood in stool throughout the day. The episodes are painless and denies any abdominal discomfort. No nausea, vomiting. No fever or chills. Patient is complaining of associated generalized weakness and fatigue. Also reports minimal dyspnea with exertion. No chest pain, palpitations, changes in urinary habits. In the emergency department, hemoglobin was found to be 5.4 and 3 unit PRBC ordered. Hospital course Patient admitted to telemetry where monitor failed to demonstrate any acute dysrhythmias. He was transferred who has 1 additional unit within the 24 hours of his admission. He was seen in consultation by GI who ordered IV hydrocortisone; felt this was more a Crohn's flare then diverticular bleed. Patient had no further bloody bowel movements since admission and his hemoglobin has stayed stable after the 4 units. At this point in time, IV steroids has been switch to an oral taper as outlined by Dr. Guan and patient will follow up with him in the office as scheduled as well as his PCP next available Time Attestation Discharge Coordination Time (in mins): 35 Quality: Safe Use of Opioids Does Pt have an Active Cancer Diagnosis on the Problem List?: No Quality: Stroke Does the patient have a stroke diagnosis?: No Physical Exam Vital Signs: Vital Signs: Last Vital Signs Temp 98.3 F 11/16/24 11:35 Pulse 77 11/16/24 11:35 Resp 16 11/16/24 11:35 BP 96/51 L 08/21/25 11:35 Pulse Ox 96 11/16/24 11:35 O2 Del Method Room Air 11/16/24 11:35 O2 Flow Rate 1.5 11/15/24 11:00 BMI result Body Mass Index 38.4 Const: Other: Awake alert no acute distress Resp: Other: Clear to auscultation bilaterally no rales rhonchi or wheezes Cardio: Other: No S4; positive S1-S2; no S3 murmurs rubs or gallops GI: Other: Soft nontender nondistended normoactive bowel sounds Extrem: Other: No edema bilaterally DS: Data Data Completed and Pending Labs on day of discharge: Laboratory Results - last 24 hr 11/16/24 06:08 WBC 6.7 RBC 2.67 L Hgb 7.8 L Hct 24.5 L MCV 91.8 MCH 29.2 MCHC 31.8 RDW 16.9 H Plt Count 251 MPV 9.2 L Immature Gran % (Auto) 0.3 Neut % (Auto) 74.0 H Lymph % (Auto) 16.4 L Collin % (Auto) 8.8 Eos % (Auto) 0.1 Baso % (Auto) 0.4 Lymph # (Auto) 1.1 L Collin # (Auto) 0.6 Eos # (Auto) 0.0 Baso # (Auto) 0.0 Abs Immat Gran (auto) 0.02 Absolute Neuts (auto) 5.0 Absolute Nucleated RBC 0.000 Nucleated RBC % (auto) 0.0 Discharge Plan Discharge Anticipated Discharge Date/Time: 11/16/24 13:04 Patient Disposition: Home, Self-Care Discharge Diagnosis: Lower GI bleed secondary to Crohn's flare Referrals: Emile Chamorro, SATELLITE INSTRUCTION FACILITATOR-BC [Primary Care Provider, Internal Medicine] - 1 Week Discharge Medications: New prednisone 10 mg tablet See Rx Instructions .Route .COMPLEX Qty: 70 0RF Rx Instructions: 10 mg orally; 4 tabs po daily x 7 days;3 tabs po daily x 7 days;2 tabs po daily x 7 days;1 tab daily x 7 days Continued tamsulosin 0.4 mg capsule 0.8 mg PO DAILY 90 Days Qty: 180 1RF Patient Comments: Takes with food multivitamin Tablet 1 tab PO DAILY@1800 Patient Comments: Takes with food ferrous sulfate [Iron (ferrous sulfate)] 325 mg (65 mg iron) Tablet 325 mg PO DAILY@1800 cholecalciferol (vitamin D3) 25 mcg (1,000 unit) Tablet 25 mcg PO DAILY@1800 Patient Comments: Takes with food calcium carbonate [Calcium 600] 600 mg calcium (1,500 mg) Tablet 600 mg PO DAILY bupropion HCl 300 mg tablet extended release 24 hr 300 mg PO DAILY PRN (Reason: Seasonal Depression) triamcinolone acetonide 0.1 % cream 1 appl topical BID PRN (Reason: Eczema) rosuvastatin 5 mg tablet 5 mg PO DAILY Patient Comments: Takes with food fluoxetine 40 mg capsule 80 mg PO DAILY Patient Comments: Takes with food metoprolol succinate 25 mg tablet extended release 24 hr 25 mg PO DAILY torsemide 10 mg tablet 10 mg PO DAILY aspirin 81 mg tablet,delayed release (DR/EC) 81 mg PO DAILY bupropion HCl 150 mg tablet extended release 24 hr 150 mg PO DAILY PRN (Reason: Seasonal Depression) Discharge Orders: Discharge Order (Routine); Ordered 11/16/24 Ordered By: Jeremy Sanford Diet: Advance to usual diet Activity on Discharge: As tolerated Stand Alone Forms: Patient Portal Discharge page Print Language: Mexican Care Plan Goals: Complete prednisone taper as ordered. Continue all other medicine as taken prio r to hospitalization Health Concerns: Follow up with Dr. Guan as scheduled; follow up with the PCP next available Plan of Treatment: Resume diet as prior to hospitalization Assessment: See discharge summary
--- NOTE | 2024-11-16 13:18 | MHC.CM.PN ---
Patient has been medically cleared for dc to home today, self care.
== END 2024-11-16 15:00 | disposition home or self-care (01) | DRG 386 ==
LOC: HO.ED 19:00 → HO.EDOVER 19:28 → HO.IMC 11-14 19:13
PROVIDERS: Internal Medicine; Student in an Organized Health Care Education/Training Program; Admitting Provider Student in an Organized Health Care Education/Training Program; Emergency Provider Emergency Medicine; PCP Nurse Practitioner Family; Visit Provider Hospitalist
DX: K50.911 Crohn's disease, unspecified, with rectal bleeding (principal); D62 Acute posthemorrhagic anemia; I48.21 Permanent atrial fibrillation; Z95.811 Presence of heart assist device; E78.5 Hyperlipidemia, unspecified; I10 Essential (primary) hypertension; F32.9 Major depressive disorder, single episode, unspecified; N40.0 Benign prostatic hyperplasia without lower urinary tract symptoms; I25.10 Atherosclerotic heart disease of native coronary artery without angina pectoris; Z79.82 Long term (current) use of aspirin; Z79.899 Other long term (current) drug therapy
CPT/HCPCS: 36415; 71045; 74174; 80048; 80053; 82728; 83540; 83605; 83690; 84484; 85025; 85027; 85610; 85652; 86140; 86850; 86900; 86901; 86920; 86923; 93005; 94660; 99212; 99285; J1720; J7120; P9016; Q9967

== ENCOUNTER → 2024-11-13 15:32 | Outpatient (BNV) | payer MEDICARE, OTHER, SELFPAY | PROVIDERS: Admitting Provider Student in an Organized Health Care Education/Training Program; Emergency Provider Emergency Medicine; PCP Nurse Practitioner Family; Visit Provider Internal Medicine Cardiovascular Disease | DX: I48.91 Unspecified atrial fibrillation (principal) | CPT/HCPCS: 93010 ==

== ENCOUNTER → 2024-11-13 15:35 | Outpatient (BNV) | payer MEDICARE, OTHER, SELFPAY | PROVIDERS: Emergency Provider Student in an Organized Health Care Education/Training Program; PCP Nurse Practitioner Family; Visit Provider Radiology Diagnostic Radiology | DX: R06.02 Shortness of breath (principal); I51.7 Cardiomegaly | CPT/HCPCS: 71045 ==

== ENCOUNTER → 2024-11-13 19:18 | Outpatient (BNV) | payer MEDICARE, OTHER, SELFPAY | PROVIDERS: Admitting Provider Student in an Organized Health Care Education/Training Program; Emergency Provider Emergency Medicine; PCP Nurse Practitioner Family; Visit Provider Student in an Organized Health Care Education/Training Program | DX: K62.5 Hemorrhage of anus and rectum (principal); D64.9 Anemia, unspecified | CPT/HCPCS: 99222; 99232; 99239 ==

== ENCOUNTER 2024-11-23 11:54 | Outpatient (AMB) | payer MEDICARE, OTHER, SELFPAY ==
--- NOTE | 2024-11-23 11:57 | MHC.PC.OV ---
Vital Signs 11/23/24 11:59 Height 5 ft 10 in Weight 273 lb BMI 39.2 BP 102/60 Blood Pressure Location Lt brachial Position Sitting Pulse 93 Pulse Source Pulse Oximeter Pulse Oximetry (%) 98 Oxygen Delivery Method Room Air Intake Visit Reasons: Tcm Allergies oatmeal Allergy (Mild, Uncoded 11/23/24 11:59) hives Tobacco use date assessed: 11/23/24 Fall risk assessment: No Falls in past year Last assessed Fall Risk: 11/23/24 Dental Screening Dental Screen Date: 11/23/24 Did you have a dental visit in the last 12 months?: No Did you have a dental problem in the last 6 months where you did not have access to dental care?: No Was dental information given to patient?: Patient declined HPI TCM TCM Information Date of Discharge 11/16/24 Discharged From [facility] Interactive Contact Date (Reference documentation from this date) 11/17/24 HPI Comments History of Present Illness Details History of Present Illness - The patient is a 74-year-old male with a past medical history of history of atrial fibrillation managed with a Watchman device, Crohn's disease, hypertension, venous insufficiency, leg edema, and coronary artery disease presenting for hospital discharge follow-up for when he was admitted to [facility] on November 13 for anemia secondary to rectal bleeding. - The patient experienced significant rectal bleeding over a week, resulting in significant anemia, necessitating hospital admission and blood transfusion of 4U PRBC. - Gastroenterology consultation attributed the bleeding to a Crohn's flare, and the patient was treated with IV hydrocortisone and a prednisone taper. - Discharged on November 16, the patient continues on a 28 day prednisone taper and reports minimal bleeding but he is very fatigued. - Has not made an appt with Dr Guan for a follow up yet. Physical Exam General: Cooperative, healthy appearing, comfortable, no acute distress and well developed Orientation: Patient oriented x3 Limitations: No limitations Head: Normal to inspection Ears: Hearing grossly normal bilaterally Nose: Normal External nose present Face and sinus: Normal facial exam Eyes: Appearance normal, both eyes and all related structures Neck: Normal visual inspection and Yes full ROM Respiratory: Normal respiratory effort and able to speak in complete sentences. Skin: Pale appearance noted Neuro: Patient oriented x3 Extremities: Normal to inspection [facility] Medical History (Updated 11/23/24 @ 12:41 by Charity Lemon PA-C) Crohn's colitis A-fib Presence of Watchman left atrial appendage closure device RANULFO (obstructive sleep apnea) BPH (benign prostatic hyperplasia) New onset a-fib Foreign body of finger of right hand Left anterior fascicular block (LAFB) Iron deficiency Depression Vertebral compression fracture PLMD (periodic limb movement disorder) PVD (peripheral vascular disease) Dyslipidemia HTN (hypertension) Crohn's disease Venous insufficiency of both lower extremities Surgical History History of cholecystectomy Status post endovenous radiofrequency ablation (RFA) of saphenous vein Family History Father Cancer of prostate Mother Anxiety Sister Breast cancer Sister Nephritis Sister No problems noted. Sister No problems noted. Sister No problems noted. Daughter Substance use disorder Mental health disorder Daughter No problems noted. Daughter No problems noted. Brother No problems noted. Brother No problems noted. Brother Epilepsy Paternal Grandfather Substance use disorder Social History Household Members: Family Housing: House Do you presently have visiting nurse or other home services: No Alcohol intake: never Patient Tobacco Use Status: Former Tobacco user Years Smoked: 50 years ago e-Cigarette/Vaping Use: Never Used Second Hand Smoke Exposure: No service: Yes Current occupational status: retired Cognitive needs: No Hearing needs: No Vision needs: No Questionnaire PHQ-9 Over the last 2 weeks, how often have you been bothered by any of the following problems? 1. Little interest or pleasure in doing things: not at all 2. Feeling down, depressed, or hopeless: not at all 3. Trouble falling or staying asleep, or sleeping too much: not at all 4. Feeling tired or having little energy: nearly every day 5. Poor appetite or overeating: several days 6. Feeling bad about yourself - or that you are a failure or have let yourself or your family down: not at all 7. Trouble concentrating on things, such as reading the newspaper or watching television: not at all 8. Moving or speaking so slowly that other people could have noticed. Or the opposite - being so fidgety or restless that you have been moving around a lot more than usual: nearly every day 9. Thoughts that you would be better off or of hurting yourself in some way: not at all Total score: 7 Depression Screening Interpretation: Negative Depression Screening Done: Yes 58427 - PHQ-9 Billing: Yes Source: Developed by Drs. Steven Kaplan, Alana Day, Perry Elmore and colleagues, with an educational yehuda from [employer]. Thrive Questionnaire Date Thrive assessed: 11/23/24 I am a: Patient What is your living situation today?: I have a steady place to live Within the past 12 months, did the food you bought not last and you didn't have the money to get more?: Never true Within the past 12 months, did you worry whether your food would run out before you got money to buy more?: Never true Do you have trouble paying for medicines?: No Do you have trouble getting transportation to medical appointments?: No Do you have trouble paying your heating and electricity bill?: No Do you have trouble taking care of your child, family member or friend?: No Do you have trouble with day-to-day activities such as bathing, preparing meals, shopping, managing finances, etc.?: No Are you currently unemployed and looking for a job?: No Are you interested in more education?: No Please select the resources that you would like help with: None Currently or been in a relationship where the following occur: No concerns reported THRIVE Score: 0 AUDIT C Alcohol Use Questionnaire (AUDIT-C) 1. How often do you have a drink containing alcohol?: Never 3. How often do you have six or more drinks on one occasion?: Never Total Score: 0 Score Reviewed/Action Taken: Yes TAM-7 AMB Questionnaire TAM-7 Date TAM - 7 assessed: 11/23/24 Feeling nervous, anxious, or on edge: 0 = Not at all Not being able to stop or control worryin = Not at all Worrying too much about different things: 0 = Not at all Trouble relaxin = Not at all Being so restless that it is hard to sit still: 0 = Not at all Becoming easily annoyed or irritable: 0 = Not at all Feeling afraid as if something awful might happen: 0 = Not at all Total TAM-7 score (0-4 normal; 5-9 mild; 10-14 moderate; 15-21 severe): 0 Source: Developed by Drs. Steven Kaplan, Alana Day, Perry Elmore and colleagues, with an educational yehuda from [employer]. TAM-7 Assessment Billing TAM-7 Assessment Tool: TAM-7 Assessment 69846 Review of Systems Const All systems reviewed & are unremarkable except as noted in HPI and below Physical exam (Primary Care) Vital Signs: Last Vital Signs Pulse 93 11/23/24 11:59 BP 102/60 11/23/24 11:59 Pulse Ox 98 11/23/24 11:59 Oxygen Delivery Method Room Air 11/23/24 11:59 BMI result Body Mass Index 39.2 Tobacco/Smoking Status: Tobacco use Status Tobacco use date assessed 11/23/24 11/23/24 12:00 Patient Tobacco Use Status Former Tobacco user 11/23/24 11:57 e-Cigarette/Vaping Use Never Used 11/23/24 11:57 PHQ-9: PHQ-9 Score PHQ-9: Total score 7 11/23/24 12:40 Depression Screening Interpretation: Negative Thrive Assessment: Date of Thrive Assessment Date Thrive assessed 11/23/24 11/23/24 12:00 Currently or been in a relationship where the following occur: No concerns reported Coding Level of Care Code TCM Mod MDM <= 7 Days Diagnoses Anemia in other chronic diseases classified elsewhere D63.8 Anemia type: other cause Other causes of anemia: chronic disease, other Hospital discharge follow-up Z09 Additional Codes TAM-7 Assessment Billing - TAM-7 Assessment Tool: TAM-7 Assessment 09988 ([id number]) PHQ-9 - 20667 - PHQ-9 Billing: Yes ([id number]) Assessment & Plan Assessment & Plan (1) Anemia: Code(s): D64.9 - Anemia, unspecified Category: Medical Qualifiers: Anemia type: other cause Other causes of anemia: chronic disease, other Qualified Code(s): D63.8 - Anemia in other chronic diseases classified elsewhere Plan: Patient was informed and verbally consented to the use of an ambient scribe for clinic note documentation during this visit. 1. Anemia Secondary To Rectal Bleeding - Will get a CBC to ensure stability post-discharge as VSS (BP slightly soft) but pt very pale appearing still. - Follow up with weight caller Dr. Guan for ongoing management of Crohn's disease and to address any further bleeding episodes. - Continue prednisone taper as prescribed to manage Crohn's flare. (2) Hospital discharge follow-up: Code(s): Z09 - Encounter for follow-up examination after completed treatment for conditions other than malignant neoplasm Category: Medical Plan: as above Orders: Orders Complete Blood Count Auto Diff Today D64.9 - Anemia, unspecified
[2024-11-23 11:59] VITALS: BP 102/60; PULSE 93; O2SAT 98; BMI 39.2
--- OUTSIDE RECORDS SUMMARY | 2024-11-23 13:00 | XMS_ITS | Encounter Summary ---
Author Organization [facility] Address [address] [facility] [address] [place] [address] Care Team Providers Care Healthcare Manager Name Role Phone No Pcp, Per Patient Primary Care Provider Corbin Mcrae MD Unavailable [phone] Emile Chamorro Unavailable [phone] Steven Guan Unavailable No Pcp, Per Patient Primary Care Provider Steve Kelsey MD Unavailable Encounter Details Date Type Department Care Team (Late st Contact Info) Description 10/02/2022 Orders Only Heart [address] [address] Corbin Thomas MD [address] [place] [phone] Coronary artery disease involving [place] coronary artery of [place] heart without angina pectoris; Left anterior fascicular block; Mixed hyperlipidemia; Venous insufficiency; Permanent atrial fibrillation Social History Tobacco Use Types Packs/Day Years Used Date Smoking Tobacco: Never Smokeless Tobacco: Never Sex and Gender Information Value Date Recorded Sex Assigned at Not on file Legal Sex Male 12:50 AM EST Gender Identity Not on file Sexual Orientation Not on file documented as of this encounter Plan of Treatment Upcoming Encounters Date Type Department Care Team (Late st Contact Info) Description 02/06/2025 2:20 PM EST Office Visit Heart [address] [address] Corbin Thomas MD [address] [place] [address] documented as of this encounter Visit Diagnoses Diagnosis Coronary artery disease involving [place] coronary artery of [place] heart without angina pectoris Left anterior fascicular block Left bundle branch hemiblock Mixed hyperlipidemia Mixed hyperlipidemia Venous insufficiency Unspecified venous (peripheral) insufficiency Permanent atrial fibrillation (Multi-HCC) Atrial fibrillation documented in this encounter Care Teams Healthcare Manager Relationship Specialty Start Date End Date No Pcp, Per Patient [place] PCP - General 03/24/22 05/27/23 No Pcp, Per Patient [place] PCP - General 05/28/23 Corbin Thomas MD [address] [place] [address] Assistant Chief Engineer Cardiology 03/24/22 Emile Chamorro [address] [place] [address] 03/24/22 Steven Guan [address] [place] [address] 06/05/22 Steve Escamilla MD [address] [place] [address] Referring Physician Live In Housekeeper Nanny 11/30/23 documented as of this encounter
--- OUTSIDE RECORDS SUMMARY | 2024-11-23 13:00 | XMS_ITS | Encounter Summary ---
Author Organization [facility] Address [address] [facility] [address] [place] [address] Care Team Providers Care Genetic Supervisor Name Role Phone No Pcp, Per Patient Primary Care Provider Corbin Mcrae MD Unavailable Emile Chamorro Unavailable [phone] Steven Guan Unavailable No Pcp, Per Patient Primary Care Provider Steve Kelsey MD Unavailable Encounter Details Date Type Department Care Team (Late st Contact Info) Description 10/13/2022 Orders Only Heart Center [address] [address] Corbin Thomas MD [address] [place] [address] Atrial fibrillation, unspecified type Social History Tobacco Use Types Packs/Day Years [...] 2:20 PM EST Office Visit Heart Center [address] [address] Corbin Thomas MD [address] [place] [address] documented as of this encounter Visit Diagnoses Diagnosis Atrial fibrillation, unspecified type (Multi-HCC) documented in this encounter Care Teams Genetic Supervisor Relationship Specialty Start Date End Date No Pcp, Per Patient [place] PCP - General 03/24/22 05/27/23 No Pcp, Per Patient [place] PCP - General 05/28/23 Corbin Thomas MD [address] [place] [address] Drivematic Machine Operator Cardiology 03/24/22 Emile Chamorro [facility] [address] [place] [address] 03/24/22 Steven Guan [address] [place] [address] 06/05/22 [place] [address] [place] [address] Referring Physician English Drawer 11/30/23 documented as of this encounter
--- OUTSIDE RECORDS SUMMARY | 2024-11-23 13:00 | XMS_ITS | Clinical Summary ---
Author Organization [facility] Address [address] [facility] [address] [place] [address] Care Team Providers Care Heart Coordinator Name Role Phone Corbin Thomas MD Unavailable [phone] Emile Chamorro Unavailable [phone] Steven Guan Unavailable No Pcp, Per [...] Units by mouth in the morning. Active imng-AX-xck-epa- [id number] 1.5 mg iron- 8.73 mg capsule,IR - [...] 5 mg tabletIndication s:Coronary artery disease involving [place] coronary artery of [place] heart without angina pectoris TAKE 1 TABLET(5 MG) BY MOUTH DAILY 90 tablet 3 08/29/19 25 Active torsemide (Demadex) 10 mg tabletIndication s:Coronary artery disease involving [place] coronary artery of [place] heart without angina pectoris,Left anterior fascicular block,Mixed hyperlipidemia,V enous insufficiency,Pe rmanent atrial fibrillation (Multi-HCC) TAKE 1 TABLET(10 MG) BY MOUTH DAILY 90 tablet 3 10/24/19 25 Active hydroCHLOROthiaz watson (HYDRODiuril) 25 mg tablet Take 25 mg by mouth in the morning. 022 Discontinued Active Problems Patient Care Coordination No te Formatting of this note migh t be different from the original. 03/18/22 Amor Ndiaye with [facility] Problem Noted Date Diagnosed Date Atrial fibrillation (Multi-HCC) 10/02/2022 long term (current) use of anticoagulants 2022 Coronary artery disease invo lving [place]uy[place] coronary artery of [place] heart without angina pectoris 07/03/2021 Mixed hyperlipidemia 07/03/2021 Venous insufficiency 07/03/2021 Encounters Date Type Department Care Team Description 10/21/2024 Refill Heart [address] [phone] Corbin Thomas MD Coronary artery disease involving [place] coronary artery of [place] heart without angina pectoris ; Left anterior fascicular block; Mixed hyperlipidemia ; Venous insufficiency; Permanent atrial fibrillation (Multi-HCC) 08/26/2024 Refill Heart [address] [address] Corbin Thomas MD Coronary artery disease involving [place] coronary artery of [place] heart without angina pectoris from Last 3 Months Family History Medical History Relation Name Comments Atrial fibrillation Brother Coronary artery disease Father [place] a nd PPM at later age Relation [...] Heart Center [facility] [address] [place] [address] Corbin Thomas MD [address] [place] [phone] Health Maintenance Due Date Last Done Comments Lipid Panel 1950 Diabetes Screening 01/13/1966 Hepatitis C Screening 01/13/1966 Zoster Vaccines (1 of 2) 01/13/1998 Medicare Annual Wellness (AWV) 08/28/2015 COVID-19 Vaccine ( season) 2023 05/07/2021, 08/23/2020, 07/26/2020 Depression Screening 03/29/2024 Influenza Vaccine (#1) 2024 3, 11/17/2021, 01/24/2018, Additional history exists DTaP/Tdap/Td Vaccines [...] on patient's age to complete this topic Insurance MEDICARE PART A AND B [facility] Care Teams Heart Coordinator Relationship Specialty Start Date End Date No Pcp, Per Patient [place] PCP - General 05/28/23 Corbin Thomas MD [address] [place] [address] [employer] Making Machine Operator Cardiology 03/24/22 Emile Chamorro [address] [address] 03/24/22 Steven Guan [address] [place] [address] 06/05/22 [place] [address] [place] [address] Referring Physician Pipe Layer 11/30/23
--- OUTSIDE RECORDS SUMMARY | 2024-11-23 13:00 | XMS_ITS | Encounter Summary ---
Author Organization [facility] Address [address] [facility] [address] [place] [address] Care Team Providers Care Mat Machine Operator Name Role Phone No Pcp, Per Patient Primary Care Provider Corbin Mcrae MD Unavailable [phone] Emile Chamorro Unavailable [phone] Steven Guan Unavailable No Pcp, Per Patient Primary Care Provider Steve Kelsey MD Unavailable Encounter Details Date Type Department Care Team (Late st Contact Info) Description 10/07/2022 Orders Only Heart Center [address] [address] Corbin Thomas MD [address] [place] [address] Atrial fibrillation, unspecified type; custodial (current) use of anticoagulants Social History Tobacco Use Types Packs/Day Years [...] 2:20 PM EST Office Visit Heart Center [address] [address] Corbin Thomas MD [address] [place] [address] documented as of this encounter Visit Diagnoses Diagnosis Atrial fibrillation, unspecified type (Multi-HCC) ad 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 Long-term (current) use of anticoagulants documented in this encounter Care Teams Mat Machine Operator Relationship Specialty Start Date End Date No Pcp, Per Patient [place] PCP - General 03/24/22 05/27/23 No Pcp, Per Patient [place] PCP - General 05/28/23 Corbin Thomas MD [address] [place] [address] [place] Polisher Operator Cardiology 03/24/22 Emile Chamorro [address] [place] [address] 03/24/22 Steven Guan [address] [place] [address] [address] [place] [address] 06/05/22 Steve Escamilla MD [address] [place] [address] Referring Physician Headliner Installer 11/30/23 documented as of this encounter
== END 2024-11-23 12:45 | disposition home or self-care (01) ==
LOC: HO.HMCC 11:55
PROVIDERS: PCP Nurse Practitioner Family; Visit Provider Physician Assistant
DX: K50.10 Crohn's disease of large intestine without complications (principal); D63.8 Anemia in other chronic diseases classified elsewhere; Z09 Encounter for follow-up examination after completed treatment for conditions other than malignant neoplasm

== ENCOUNTER 2024-11-23 11:54 | Outpatient (REF) | payer MEDICARE, OTHER, SELFPAY ==
[2024-11-23 16:16] LABS: MANUAL DIFF FLAG NO
[2024-11-23 16:22] LABS: Hematocrit 28.8 % (42.0-52.0); Hemoglobin 8.8 g/dl (14.0-18.0); Imm Gran Abs Auto 0.06 X10*3/uL (0.00-0.03); Imm Gran Pct Auto 0.6 % (0.0-0.4); Lymphocytes Absolute Auto 0.7 X10*3/uL (1.2-4.9); Mean Corpuscular HGB Conc 30.6 g/dl (31.0-36.0); Mean Corpuscular Hemoglobin 27.4 pg (27.0-33.0); Mean Corpuscular Volume 89.7 fL (80.0-98.0); NRBC Abs Auto 0.000 X10*3/uL (0.0-0.012); NRBC Pct Auto 0.0 /100WBC (0.0-0.2); Platelet Count 385 X10*3/uL (160-400); Red Blood Count 3.21 X10*6/uL (4.60-5.80); White Blood Count 9.6 X10*3/uL (4.8-10.8)
== END 2024-11-23 11:55 | disposition home or self-care (01) ==
LOC: HO.HMGCLDS 11:54
PROVIDERS: PCP Nurse Practitioner Family; Visit Provider Physician Assistant
DX: Z09 Encounter for follow-up examination after completed treatment for conditions other than malignant neoplasm (principal); D64.9 Anemia, unspecified; D63.8 Anemia in other chronic diseases classified elsewhere
CPT/HCPCS: 36415; 85025; 96127; 99495

== ENCOUNTER 2024-11-30 12:28 | Emergency (ER) | payer MEDICARE, OTHER, SELFPAY ==
--- NOTE | ~2024-11-30 | XR_ITS ---
EXAMINATION: XR FOOT, LEFT CLINICAL INFORMATION: ecchymosis COMPARISON: 12/31/2021. TECHNIQUE: AP, lateral, and oblique views of the left foot. FINDINGS: No fracture, dislocation, or suspicious bone lesion. Mild bunion formation involving the medial eminence of first metatarsal head. Mild degenerative arthritis of the first MTP joint. Joint spaces otherwise preserved. Normal plantar arch. The midfoot and hindfoot appear normal. There is dorsal soft tissue swelling. XR/XR foot LT min 3V IMPRESSION: Dorsal soft tissue swelling. No acute bony abnormalities. Electronically signed by: Guy Harding MD 11/30/2024 01:38 PM EDT
--- NOTE | ~2024-11-30 | XR_ITS ---
EXAMINATION: XR CHEST CLINICAL INFORMATION: leg swelling COMPARISON: November 13, 2024. TECHNIQUE: 2 views of the chest were obtained. FINDINGS: Prominence of the interstitial markings, perihilar and indistinct margins in the cardiomediastinal silhouette margins. Probably Josseline B lines. No consolidation, pleural effusion or pneumothorax. Cardiomediastinal silhouette size is mildly prominent, unchanged. S-shaped curvature thoracic and upper lumbar spine. Volume loss, right lung. Deformity of the thorax, unchanged. Vascular clips right upper quadrant abdomen and likely prior laparoscopic cholecystectomy. XR/XR chest 2V IMPRESSION: Mild interstitial lung edema in the correct clinical settings. Cardiomegaly, mild. Scoliosis and spondylosis, thoracolumbar spine. Electronically signed by: Huang Kumari MD 11/30/2024 01:43 PM EDT
--- NOTE | ~2024-11-30 | US_ITS ---
CLINICAL HISTORY: pain and swelling Venous duplex ultrasound bilateral lower extremity Comparison: None provided Findings: The visualized deep veins are fully compressible with normal Doppler color flow and spectral tracings. No popliteal cyst. IMPRESSION: 1. Negative for bilateral lower extremity deep vein thrombosis. This document has been electronically signed by: Jose Brink MD on 11/30/2024 19:34:35
--- NOTE | 2024-11-30 12:48 | ED.GENADULT ---
HPI - General Adult General Chief complaint: General Medical Stated complaint: Leg swelling Time Seen by Provider: 11/30/24 16:09 Source: patient, family, RN notes reviewed and old records reviewed Mode of arrival: ambulatory Limitations: no limitations History of Present Illness ED Provider: Ines HART narrative: 74-year-old male past medical history significant for Crohn's colitis, atrial fibrillation not anticoagulated, coronary artery disease, peripheral edema, hypertension, obesity presenting for evaluation of leg swelling. patient was discharged from this facility on 11/16/2024. He did have GI bleed requiring transfusion of 4 units of packed red blood cells. He had a follow up with his GI doctor today, Dr. Guan as it was felt the bleeding was related to the Crohn's disease. The patient has been complaining of increased leg swelling with weeping discharge and was referred to the ER for further evaluation. He has a history of DVT but again is not currently anticoagulated due to bleeding. The patient also notes bruising to his feet and denies any injuries the patient reports that he had some shortness of breath after his blood transfusion 2 weeks ago but currently denies any shortness of breath. The patient reports he was discharged on prednisone due to his Crohn's flare which he has been taking. He is supposed to be taking torsemide but admits that he does not take it as prescribed because he does not like, it makes him urinate. He states that he is compliant with all his other medications Related Data Home Medications ?Medication ?Instructions ?Recorded ?Confirmed fluoxetine 40 mg capsule 80 mg PO DAILY 02/26/20 11/13/24 rosuvastatin 5 mg tablet 5 mg PO DAILY 02/26/20 11/13/24 cholecalciferol (vitamin D3) 25 25 mcg PO DAILY@179911/21/20 11/13/24 mcg (1,000 unit) tablet ferrous sulfate 325 mg (65 mg 325 mg PO DAILY@179911/21/20 11/13/24 iron) tablet (Iron (ferrous sulfate)) multivitamin 1 tab PO DAILY@179911/21/20 11/13/24 metoprolol succinate 25 mg 25 mg PO DAILY 07/16/22 11/13/24 tablet,extended release 24 hr torsemide 10 mg tablet 10 mg PO DAILY 09/23/23 11/13/24 aspirin 81 mg tablet,delayed 81 mg PO DAILY 11/18/23 11/13/24 release bupropion HCl 150 mg 24 hr tablet, 150 mg PO DAILY PRN Seasonal 11/18/23 11/13/24 extended release Depression bupropion HCl 300 mg 24 hr tablet, 300 mg PO DAILY PRN Seasonal 11/13/24 11/13/24 extended release Depression calcium carbonate (Calcium 600) 600 mg PO DAILY 11/13/24 11/13/24 triamcinolone acetonide 0.1 % 1 appl topical BID PRN Eczema 11/13/24 11/13/24 topical cream Previous Rx's ?Medication ?Instructions ?Recorded tamsulosin 0.4 mg capsule 0.8 mg (2 x 0.4 mg) PO DAILY 90 07/09/24 days #180 caps prednisone 10 mg tablet See Rx Instructions .Route 11/16/24 .COMPLEX #70 tabs potassium chloride 20 mEq oral 20 meq PO DAILY #5 ea 11/30/24 packet Allergies Allergy/AdvReac Type Severity Reaction Status Date / Time oatmeal Allergy Mild hives Uncoded 11/30/24 12:55 Review of Systems Constitutional: Constitutional: Denies body ache(s), Denies chills, Denies fever(s) and Denies headache(s) ENT: Denies headache(s) Cardiovascular: Cardiovascular: Denies chest pain, Reports pedal edema, Reports leg edema and Denies dyspnea on exertion Respiratory: Respiratory: Denies cough and Denies dyspnea on exertion Gastrointestinal: Gastrointestinal: Denies abdominal pain, Denies nausea and Denies vomiting Musculoskeletal: Musculoskeletal: Denies back pain Integumentary/Breasts: Skin/Breast: Denies rash Neurologic: Denies headache(s) [facility] Past Medical History Medical History (Updated 11/30/24 @ 17:33 by Thanh Chacon) Crohn's colitis A-fib Presence of Watchman left atrial appendage closure device RANULFO (obstructive sleep apnea) BPH (benign prostatic hyperplasia) New onset a-fib Foreign body of finger of right hand Left anterior fascicular block (LAFB) Iron deficiency Depression Vertebral compression fracture PLMD (periodic limb movement disorder) PVD (peripheral vascular disease) Dyslipidemia HTN (hypertension) Crohn's disease Venous insufficiency of both lower extremities Surgical History History of cholecystectomy Status post endovenous radiofrequency ablation (RFA) of saphenous vein Family History Family History Father Cancer of prostate Mother Anxiety Sister Breast cancer Sister Nephritis Sister No problems noted. Sister No problems noted. Sister No problems noted. Daughter Substance use disorder Mental health disorder Daughter No problems noted. Daughter No problems noted. Brother No problems noted. Brother No problems noted. Brother Epilepsy Paternal Grandfather Substance use disorder Social History Social History Household Members: Family Housing: House Do you presently have visiting nurse or other home services: No Alcohol intake: never Patient Tobacco Use Status: Former Tobacco user Years Smoked: 50 years ago Smoked in Last 30 Days: No e-Cigarette/Vaping Use: Never Used Second Hand Smoke Exposure: No Use of substances other than those prescribed or required for medical reasons: No Advance Directives: No Advance Directives Information Provided: No service: Yes Current occupational status: retired Cognitive needs: No Hearing needs: No Vision needs: No Physical Exam ED Vital Signs: Vital Signs - 24 hr 11/30/24 12:51 11/30/24 15:44 11/30/24 18:45 Temperature 97.7 F 98.2 F Pulse Rate 90 67 76 Respiratory Rate 20 20 16 Blood Pressure 117/64 115/61 99/50 L Pulse Oximetry 97 97 98 Oxygen Delivery Method Room Air Room Air Room Air 11/30/24 19:23 Temperature Pulse Rate 68 Respiratory Rate 16 Blood Pressure 106/57 L Pulse Oximetry 97 Oxygen Delivery Method Room Air BMI result Body Mass Index 37.7 Const General: healthy appearing, comfortable, no acute distress, alert and awake Nutritional Appearance: well nourished Orientation/consciousness: patient oriented x3 HENMT Head: Yes normocephalic and Yes atraumatic Eyes Eyelids: Yes eyelids normal Conjunctivae: conjunctivae normal Sclerae: sclerae normal Corneas: corneas normal Pupils: Equal, round and reactive pupils present EOM: EOMs intact bilaterally Neck Neck: Yes full ROM Resp Effort & Inspection: normal respiratory effort, able to speak in complete sentences, no audible wheezes and not labored Auscultation: clear to auscultation bilaterally Cardio Other: the patient has 3+ bilateral pitting edema to lower extremities. Rate: regular rate Rhythm: regular rhythm GI Inspection: No distended Palpation (GI): Soft to palpation, not firm, nontender, no guarding and not rigid Skin General skin exam: elasticity normal Neuro General: patient oriented x3 Cranial nerves: Yes Equal, round and reactive pupils present and Yes Bilaterally intact EOM present Cognition (Neuro): normal cognition Extrem Other: there is mild ecchymosis to the dorsal surface of the left foot, no tenderness to palpation. Course Course Course Narrative: This is a rapid medical exam performed by Mi Metzger NP: Additional HPI, ROS, PE not included below will be deferred to primary provider. Patient is a 74y/o M pmhx venous insufficiency of LEs, HTN, PVD, afib with Watchman presenting from Dr. Guan' office for evaluation of anemia, rectal bleeding, fluid oozing from legs for the past 3 days. Atraumatic bruising to left foot, abdomen. Not anticoagulated. Plan: EKG, labs, CXR, foot xray Medical Decision Making Medical Decision Making [facility] Narrative: 74-year-old male with past medical history as above presents for evaluation of leg swelling. He has no active dyspnea the we did have some a couple of weeks ago after his blood transfusions. His oxygen saturation 99% while he is resting in his supine position quite comfortably. He is here today for predominantly leg swelling without associated symptoms. I do believe this is likely multifactorial as he is on prednisone which can cause increased leg swelling. The patient is also noncompliant with his torsemide due to the amount it makes him urinate. I discussed the importance of taking his medications. the patient had a chest x-ray that shows mild interstitial edema which again is likely related to not taking his torsemide. I added on a BNP. But the patient does not appear to have an acute CHF exacerbation. We will replete the patient's potassium that is low at 3.1 especially since we will be having him take his torsemide. there was no evidence of infectious process, I did order ultrasounds to evaluate for DVT as the patient has a history of this and is not currently anticoagulated Differential Diagnosis Differential Diagnoses: The differential diagnosis associated with the presentation includes medication noncompliance Leg swelling from prednisone CHF Dependent edema DVT Lab Data [facility] Lab Attestation statement: I reviewed the patient's lab results. no leukocytosis. The patient has a chronic anemia that is improved from his recent discharge. Likely due to his history of Crohn's and GI bleeding. Normal platelet count. The patient's sodium is within normal limits, potassium is low at 3.1 as discussed. This may be related to his torsemide that he takes intermittently and he also had some recent diarrhea. BUN is slightly elevated to 23 with a normal creatinine. The patient is not diabetic 11/30/24 13:19 11/30/24 13:19 Labs: Lab Results 11/30/24 Range/Units 13:19 WBC 9.6 (4.8-10.8) X10*3/uL RBC 3.26 L (4.60-5.80) X10*6/uL Hgb 8.9 L (14.0-18.0) g/dl Hct 29.4 L (42.0-52.0) % MCV 90.2 (80.0-98.0) fL MCH 27.3 (27.0-33.0) pg MCHC 30.3 L (31.0-36.0) g/dl RDW 18.2 H (11.0-16.0) % Plt Count 288 D (160-400) X10*3/uL MPV 8.8 L (9.4-12.4) fL Immature Gran % (Auto) 0.6 H (0.0-0.4) % Neut % (Auto) 58.9 (45-73) % Lymph % (Auto) 26.1 (20-40) % Norton % (Auto) 10.9 (2-11) % Eos % (Auto) 3.0 (0-4) % Baso % (Auto) 0.5 (0-2) % Lymph # (Auto) 2.5 (1.2-4.9) X10*3/uL Norton # (Auto) 1.1 (0.1-1.2) X10*3/uL Eos # (Auto) 0.3 (0.0-0.4) X10*3/uL Baso # (Auto) 0.1 (0.0-0.2) X10*3/uL Abs Immat Gran (auto) 0.06 H (0.00-0.03) X10*3/uL Absolute Neuts (auto) 5.7 (2.0-8.3) x10*3/uL Absolute Nucleated RBC 0.000 (0.0-0.012) X10*3/uL Nucleated RBC % (auto) 0.0 (0.0-0.2) /100WBC PT 11.7 (10.9-12.4) SEC INR 1.0 (0.9-1.1) Sodium 143 (135-145) mmol/L Potassium 3.1 L D (3.3-5.1) mmol/L Chloride 111 H (96-108) mmol/L Carbon Dioxide 26 (22-29) mmol/L Anion Gap 9 L (12-20) BUN 23 H (9-16) mg/dL Creatinine 0.84 (0.5-1.4) mg/dL Estim Creat Clear Calc 96.8 Estimated GFR > 60 Random Glucose 102 (60-115) mg/dL Calcium 8.2 L (8.4-10.2) mg/dL Total Bilirubin 0.4 (0.0-1.0) mg/dL AST 36 (5-37) U/L ALT 90 H (0-40) U/L Alkaline Phosphatase 75 (39-117) U/L B-Natriuretic Peptide 650 H (<100) pg/mL Total Protein 5.9 L (6.5-8.0) g/dL Albumin 3.7 (3.5-5.0) g/dL Blood Type AB Positive Antibody Screen NEGATIVE Radiology Impression Discussion of test interpretation with radiology: I have reviewed the radiologist's reading. Radiologist Impression: FINDINGS: No fracture, dislocation, or suspicious bone lesion. Mild bunion formation involving the medial eminence of first metatarsal head. Mild degenerative arthritis of the first MTP joint. Joint spaces otherwise preserved. Normal plantar arch. The midfoot and hindfoot appear normal. There is dorsal soft tissue swelling. XR/XR foot LT min 3V IMPRESSION: Dorsal soft tissue swelling. No acute bony abnormalities. Electronically signed by: Guy Harding MD 11/30/2024 01:38 PM EDT RP FINDINGS: Prominence of the interstitial markings, perihilar and indistinct margins in the cardiomediastinal silhouette margins. Probably Josseline B lines. No consolidation, pleural effusion or pneumothorax. Cardiomediastinal silhouette size is mildly prominent, unchanged. S-shaped curvature thoracic and upper lumbar spine. Volume loss, right lung. Deformity of the thorax, unchanged. Vascular clips right upper quadrant abdomen and likely prior laparoscopic cholecystectomy. XR/XR chest 2V IMPRESSION: Mild interstitial lung edema in the correct clinical settings. Cardiomegaly, mild. Scoliosis and spondylosis, thoracolumbar spine. Electronically signed by: Huang Kumari MD 11/30/2024 01:43 PM EDT RP Findings: The visualized deep veins are fully compressible with normal Doppler color flow and spectral tracings. No popliteal cyst. IMPRESSION: 1. Negative for bilateral lower extremity deep vein thrombosis. This document has been electronically signed by: Jose Brink MD on 11/30/2024 19:34:35 Discharge Plan Discharge Clinical Impression: Dependent edema Patient Disposition: Home, Self-Care Instructions: Leg Edema (ED) Additional Instructions: your legs are swollen for multiple reasons. Prednisone has a side effect of increasing leg swelling. It is important that you are compliant with your torsemide I recommend taking potassium 20 mg daily for the next 3 days. Follow up with your primary doctor, you should have repeat labs next week return for new or worsening symptoms Prescriptions: New potassium chloride 20 mEq packet 20 meq PO DAILY Qty: 5 0RF No Action tamsulosin 0.4 mg capsule 0.8 mg PO DAILY 90 Days Qty: 180 1RF Patient Comments: Takes with food multivitamin Tablet 1 tab PO DAILY@1800 Patient Comments: Takes with food ferrous sulfate [Iron (ferrous sulfate)] 325 mg (65 mg iron) Tablet 325 mg PO DAILY@1800 cholecalciferol (vitamin D3) 25 mcg (1,000 unit) Tablet 25 mcg PO DAILY@1800 Patient Comments: Takes with food calcium carbonate [Calcium 600] 600 mg calcium (1,500 mg) Tablet 600 mg PO DAILY bupropion HCl 300 mg tablet extended release 24 hr 300 mg PO DAILY PRN (Reason: Seasonal Depression) triamcinolone acetonide 0.1 % cream 1 appl topical BID PRN (Reason: Eczema) prednisone 10 mg tablet See Rx Instructions .Route .COMPLEX Qty: 70 0RF Rx Instructions: 10 mg orally; 4 tabs po daily x 7 days;3 tabs po daily x 7 days;2 tabs po daily x 7 days;1 tab daily x 7 days rosuvastatin 5 mg tablet 5 mg PO DAILY Patient Comments: Takes with food fluoxetine 40 mg capsule 80 mg PO DAILY Patient Comments: Takes with food metoprolol succinate 25 mg tablet extended release 24 hr 25 mg PO DAILY torsemide 10 mg tablet 10 mg PO DAILY aspirin 81 mg tablet,delayed release (DR/EC) 81 mg PO DAILY bupropion HCl 150 mg tablet extended release 24 hr 150 mg PO DAILY PRN (Reason: Seasonal Depression) Print Language: Georgian
[2024-11-30 12:51] VITALS: BP 117/64; PULSE 90; RESP 20; TEMP 36.5; O2SAT 97; BMI 37.7
--- NOTE | 2024-11-30 12:53 | ECG_ITS ---
Test Reason : weakness Blood Pressure : */* mmHG Vent. Rate : 81 BPM Atrial Rate : * BPM P-R Int : * ms QRS Dur : 110 ms QT Int : 386 ms P-R-T Axes : * -25 166 degrees QTcB Int : 448 ms Atrial fibrillation with premature ventricular or aberrantly conducted complexes ST & T wave abnormality, consider anterolateral ischemia Abnormal ECG When compared with ECG of 13-Nov-2024 16:04, T wave inversion now evident in Anterolateral leads QT has shortened Referred By: Sarah Metzger Electronically Signed By: Frank Gonzalez
[2024-11-30 13:23] LABS: MANUAL DIFF FLAG NO
[2024-11-30 13:25] LABS: Hematocrit 29.4 % (42.0-52.0); Hemoglobin 8.9 g/dl (14.0-18.0); Imm Gran Abs Auto 0.06 X10*3/uL (0.00-0.03); Imm Gran Pct Auto 0.6 % (0.0-0.4); Lymphocytes Absolute Auto 2.5 X10*3/uL (1.2-4.9); Mean Corpuscular HGB Conc 30.3 g/dl (31.0-36.0); Mean Corpuscular Hemoglobin 27.3 pg (27.0-33.0); Mean Corpuscular Volume 90.2 fL (80.0-98.0); NRBC Abs Auto 0.000 X10*3/uL (0.0-0.012); NRBC Pct Auto 0.0 /100WBC (0.0-0.2); Platelet Count 288 X10*3/uL (160-400); Red Blood Count 3.26 X10*6/uL (4.60-5.80); White Blood Count 9.6 X10*3/uL (4.8-10.8)
[2024-11-30 13:33] LABS: INTERNATIONAL NORM RATIO 1.0 (0.9-1.1); Prothrombin Time 11.7 SEC (10.9-12.4)
[2024-11-30 13:40] LABS: Alanine Aminotransferase 90 U/L (0-40); Albumin Level 3.7 g/dL (3.5-5.0); Alkaline Phosphatase 75 U/L (39-117); Anion Gap 9 (12-20); Aspartate Amino Transferase 36 U/L (5-37); Blood Urea Nitrogen 23 mg/dL (9-16); Calcium 8.2 mg/dL (8.4-10.2); Carbon Dioxide 26 mmol/L (22-29); Chloride 111 mmol/L (96-108); Creatinine Clr Calc Pharmacy 96.8; Estimated Glomerular Filt Rate > 60; Potassium 3.1 mmol/L (3.3-5.1); Sodium 143 mmol/L (135-145); Total Protein 5.9 g/dL (6.5-8.0)
[2024-11-30 15:44] VITALS: BP 115/61; PULSE 67; RESP 20; O2SAT 97
[2024-11-30 17:34] LABS: B Type Natriuretic Peptide 650 pg/mL (<100)
[2024-11-30 18:45] VITALS: BP 99/50; PULSE 76; RESP 16; TEMP 36.8; O2SAT 98
--- NOTE | 2024-11-30 19:19 | PC.NURSE ---
Assumed care of pt, presents with bilateral leg weakness, pt was sent from doctors office for follow of recent admission was told to come back to ED for reeval, pt was swelling to bilateral lower extremities, states that he does not take his torsemide as directed due to having to constantly urinate when performing daily errands, aaox4, nad, at bedside.
[2024-11-30 19:23] VITALS: BP 106/57; PULSE 68; RESP 16; O2SAT 97
[2024-11-30] MEDS: Potassium Chloride ER 20 MEQ TAB.ER.PRT 60 MEQ PO (20:11)
[2024-11-30 20:17] VITALS: BP 106/57; PULSE 68; RESP 16; TEMP -17.7; TEMP 0; O2SAT 97
== END 2024-11-30 20:18 | disposition home or self-care (01) ==
PROVIDERS: Physician Assistant; Registered Nurse Emergency; Emergency Provider Emergency Medicine; PCP Nurse Practitioner Family
DX: R60.0 Localized edema (principal); I48.91 Unspecified atrial fibrillation; M79.672 Pain in left foot; R06.02 Shortness of breath; Z91.148 Patient's other noncompliance with medication regimen for other reason; Z79.899 Other long term (current) drug therapy; Z87.891 Personal history of nicotine dependence
CPT/HCPCS: 36415; 71046; 73630; 80053; 83880; 85025; 85610; 86850; 86900; 86901; 93005; 93970; 99284

== ENCOUNTER → 2024-11-30 12:53 | Outpatient (BNV) | payer MEDICARE, OTHER, SELFPAY | PROVIDERS: PCP Nurse Practitioner Family; Visit Provider Radiology Diagnostic Radiology | DX: M70.872 Other soft tissue disorders related to use, overuse and pressure, left ankle and foot (principal) | CPT/HCPCS: 73630 ==

== ENCOUNTER → 2024-11-30 12:53 | Outpatient (BNV) | payer MEDICARE, OTHER, SELFPAY | PROVIDERS: Emergency Provider Emergency Medicine; PCP Nurse Practitioner Family; Visit Provider Internal Medicine Cardiovascular Disease | DX: I48.91 Unspecified atrial fibrillation (principal) | CPT/HCPCS: 93010 ==

== ENCOUNTER 2024-12-07 06:27 | Outpatient (REF) | payer MEDICARE, OTHER, SELFPAY ==
--- OUTSIDE RECORDS SUMMARY | 2024-12-07 06:33 | XMS_ITS | Encounter Summary ---
Author Organization [facility] Address [address] [facility] [address] [place] [address] Care Team Providers Care Title Checker Name Role Phone No Pcp, Per Patient Primary Care Provider Corbin Mcrae MD Unavailable [phone] Emile Chamorro Unavailable [phone] Steven Guan Unavailable No Pcp, Per Patient Primary Care Provider Steve Kelsey MD Unavailable Encounter Details Date Type Department Care Team (Late st Contact Info) Description 10/02/2022 Orders Only [address] [address] Corbin Thomas MD [address] [place] [id number] Coronary artery disease involving [place] coronary artery of [place] heart without angina pectoris; Left anterior fascicular [...] 02/06/2025 2:20 PM EST Office Visit Heart [address] [address] Corbin Thomas MD [address] [place] [address] documented as of this encounter Visit Diagnoses Diagnosis Coronary artery disease involving [place] coronary artery of [place] heart without angina pectoris Left anterior fascicular block Left bundle branch hemiblock Mixed hyperlipidemia Mixed hyperlipidemia Venous insufficiency Unspecified venous (peripheral) insufficiency Permanent atrial fibrillation (Multi-HCC) Atrial fibrillation documented in this encounter Care Teams Title Checker Relationship Specialty Start Date End Date No Pcp, Per Patient [place] PCP - General 03/24/22 05/27/23 No Pcp, Per Patient [place] PCP - General 05/28/23 Corbin Thomas MD [address] [place] [address] Nuts And Bolts Assembler Cardiology 03/24/22 Emile hCamorro [address] [place] [address] 03/24/22 Steven Guan [address] [place] [address] 06/05/22 Steve Escamilla MD [address] [place] [address] Referring Physician Insurance Billing Specialist 11/30/23 documented as of this encounter
--- OUTSIDE RECORDS SUMMARY | 2024-12-07 06:33 | XMS_ITS | Encounter Summary ---
Author Organization [facility] Address [address] [facility] [address] [place] [address] Care Team Providers Care Warp Drawer Name Role Phone No Pcp, Per Patient Primary Care Provider Corbin Mcrae MD Unavailable Emile Chamorro Unavailable [phone] Steven Guan Unavailable No Pcp, Per Patient Primary Care Provider Steve Kelsey MD Unavailable Encounter Details Date Type Department Care Team (Late st Contact Info) Description 10/13/2022 Orders Only [facility] [address] [address] Corbin Thomas MD [address] [place] [phone] Atrial fibrillation, unspecified type Social History Tobacco [...] 2:20 PM EST Office Visit [facility] [address] [address] Corbin Thomas MD [address] [place] [phone] documented as of this encounter Visit Diagnoses Diagnosis Atrial fibrillation, unspecified type (Multi-HCC) documented in this encounter Care Teams Warp Drawer Relationship Specialty Start Date End Date No Pcp, Per Patient [place] PCP - General 03/24/22 05/27/23 No Pcp, Per Patient [place] PCP - General 05/28/23 Corbin Thomas MD [address] [place] [address] Drafter Chief Design Cardiology 03/24/22 Emile Chamorro [facility] [address] [place] [address] 03/24/22 Steven Guan [address] [place] [address] 06/05/22 [place] [address] [place] [id number] Referring Physician Optical Engineer 11/30/23 documented as of this encounter
--- OUTSIDE RECORDS SUMMARY | 2024-12-07 06:33 | XMS_ITS | Clinical Summary ---
Author Organization [facility] Address [address] [facility] [address] [place] [address] Care Team Providers Care Crushing Foreman Name Role Phone Corbin Thomas MD Unavailable Emile Chamorro Unavailable [phone] Steven Guan Unavailable No Pcp, Per [...] Units by mouth in the morning. Active [id number]- [id number] 1.5 mg iron- 8.73 mg capsule,IR - [...] 5 mg tabletIndication s:Coronary artery disease involving three affiliated coronary artery of three affiliated heart without angina pectoris TAKE 1 TABLET(5 MG) BY MOUTH DAILY 90 tablet 3 08/29/19 25 Active torsemide (Demadex) 10 mg tabletIndication s:Coronary artery disease involving three affiliated coronary artery of three affiliated heart without angina pectoris,Left anterior fascicular block,Mixed [...] from the original. 03/18/22 Amor Ndiaye with [facility] Problem Noted Date Diagnosed Date Atrial fibrillation (Multi-HCC) 10/02/2022 intermediate (current) use of anticoagulants 2022 Coronary artery disease invo lving three affiliated coronary artery of three affiliated heart without angina pectoris 07/03/2021 Mixed hyperlipidemia 07/03/2021 Venous insufficiency 07/03/2021 Encounters Date Type Department Care Team Description 12/04/2024 Telephone [facility] [address] [address] Malissa Ardon, RN Labs Only 10/21/2024 Refill [facility] [address] [address] Corbin Thomas MD Coronary artery disease involving three affiliated coronary artery of three affiliated heart without angina pectoris ; Left anterior fascicular block; Mixed hyperlipidemia ; Venous insufficiency; Permanent atrial fibrillation (Multi-HCC) from Last 3 Months Family History Medical History Relation Name Comments Atrial fibrillation Brother Coronary artery disease Father [place] a nd PPM at later age Relation [...] 2:20 PM EST Office Visit Heart Center [facility] [address] [place] [phone] Corbin Thomas MD [address] [place] [phone] Health Maintenance Due Date Last Done Comments Lipid Panel 1950 Diabetes Screening 01/13/1966 Hepatitis C Screening 01/13/1966 Zoster Vaccines (1 of 2) 01/13/1998 Medicare Annual Wellness (AWV) 08/28/2015 Depression Screening 03/29/2024 COVID-19 Vaccine ( season) 2024 05/07/2021, 08/23/2020, 07/26/2020 Influenza Vaccine (#1) 2024 , 11/17/2021, 01/24/2018, [...] topic Insurance MEDICARE PART A AND B [facility] Care Teams Crushing Foreman Relationship Specialty Start Date End Date No Pcp, Per Patient [place] PCP - General 05/28/23 Corbin Thomas MD [address] [place] [address] Line Haul Driver Cardiology 03/24/22 Emile Chamorro [address] [place] [address] 03/24/22 Steven Guan [address] [place] [address] 06/05/22 Steve sEcamilla MD [address] [place] [address] Referring Physician Caster Helper 11/30/23
--- OUTSIDE RECORDS SUMMARY | 2024-12-07 06:33 | XMS_ITS | Encounter Summary ---
Author Organization [facility] Address [address] [facility] [address] [place] [address] Care Team Providers Care Conference Translator Name Role Phone Corbin Thomas MD Unavailable [phone] Emile Chamorro Unavailable [phone] Steven Guan Unavailable No Pcp, Per Patient Primary Care Provider Steve Kelsey MD Unavailable Reason for Visit * Reason Onset Date Comments Labs Only 12/04/2024 Encounter Details Date Type Department Care Team (Late st Contact Info) Description 12/04/2024 Telephone [facility] [address] [address] Malissa Ardon, RN Labs Only Social History Tobacco Use Types Packs/Day Years Used Date Smoking Tobacco: Never Smokeless Tobacco: Never Sex and Gender Information Value Date Recorded Sex Assigned at Not on file Legal Sex Male 12:50 AM EST Gender Identity Not on file Sexual Orientation Not on file documented as of this encounter Miscellaneous Notes * Telephone Encounter - Malissa Ardon RN - 12/04/2024 3:56 PM EDT Pt calling requesting his needs fasting blood test orders for Dr Thomas to be sent to [facility]. Pt's , Lilibeth also requesting you send a copy of the labs to her via [employer] on her portal. Lilibeth Bond 09/15/1954 documented in this encounter Plan of Treatment Upcoming Encounters Date Type Department Care Team (Late st Contact Info) Description 02/06/2025 2:20 PM EST Office Visit Heart Center [facility] [address] [place] [address] Corbin Thomas MD [address] [place] [address] Scheduled Orders Name Type Priority Associated Diagnoses Orde r Schedule CBC Lab Routine Coronary artery disease involving [place] coronary artery of [place] heart without angina pectoris Expected: 12/04/2024 (Approximate), Expires: 12/04/2025 Comprehensive metabolic panel Lab Routine Coronary artery disease involving [place] coronary artery of [place] heart without angina pectoris Mixed hyperlipidemia Expected: 12/04/2024 (Approximate), Expires: 12/04/2025 Lipid panel Lab Routine Mixed hyperlipidemia Expected: 12/04/2024 (Approximate), Expires: 12/04/2025 CK Lab Routine Mixed hyperlipidemia Expected: 12/04/2024 (Approximate), Expires: 12/04/2025 documented as of this encounter Visit Diagnoses Diagnosis Coronary artery disease involving [place] coronary artery of [place] heart without angina pectoris- Primary Mixed hyperlipidemia Mixed hyperlipidemia documented in this encounter Care Teams Conference Translator Relationship Specialty Start Date End Date No Pcp, Per Patient [place] PCP - General 05/28/23 Corbin Thomas MD [address] [place] [address] Dry House Tender Cardiology 03/24/22 Emile Chamorro [facility] [address] [facility] [place] [address] 03/24/22 Steven Guan [address] [place] [address] 06/05/22 Steve Escamilla MD [address] [place] [address] Referring Physician Database Specialist 11/30/23 documented as of this encounter
--- OUTSIDE RECORDS SUMMARY | 2024-12-07 06:33 | XMS_ITS | Encounter Summary ---
Author Organization [facility] Address 800 [facility] [address] [place] [address] Care Team Providers Care It Application Architect Name Role Phone No Pcp, Per Patient Primary Care Provider Corbin Mcrae MD Unavailable [phone] Emile Chamorro Unavailable [phone] Steven Guan Unavailable No Pcp, Per Patient Primary Care Provider Steve Kelsey MD Unavailable Encounter Details Date Type Department Care Team (Late st Contact Info) Description 10/07/2022 Orders Only [facility] Center [address] [address] Corbin Thomas MD [address] [place] [address] Atrial fibrillation, unspecified type; correction (current) use of anticoagulants Social History Tobacco [...] 2:20 PM EST Office Visit Heart Center [address] [address] Corbin Thomas MD [address] [place] [address] documented as of this encounter Visit Diagnoses Diagnosis Atrial fibrillation, unspecified type (Multi-HCC) correction (current) use of anticoagulants Long-term (current) use of anticoagulants documented in this encounter Care Teams It Application Architect Relationship Specialty Start Date End Date No Pcp, Per Patient [place] PCP - General 03/24/22 05/27/23 No Pcp, Per Patient [place] PCP - General 05/28/23 Corbin Thomas MD [address] [place] [address] Black Ash Burner Operator Cardiology 03/24/22 Emile Chamorro [address] [address] 03/24/22 Steven Guan [address] [place] [address] [address] [place] [address] 06/05/22 Steve Escamilla MD [address] [place] [address] Referring Physician Senior Principal 11/30/23 documented as of this encounter
[2024-12-07 09:11] LABS: B Type Natriuretic Peptide 523 pg/mL (<100)
[2024-12-07 10:16] LABS: MANUAL DIFF FLAG NO
[2024-12-07 10:20] LABS: Hematocrit 25.4 % (42.0-52.0); Hemoglobin 7.7 g/dl (14.0-18.0); Imm Gran Abs Auto 0.04 X10*3/uL (0.00-0.03); Imm Gran Pct Auto 0.5 % (0.0-0.4); Lymphocytes Absolute Auto 1.9 X10*3/uL (1.2-4.9); Mean Corpuscular HGB Conc 30.3 g/dl (31.0-36.0); Mean Corpuscular Hemoglobin 27.4 pg (27.0-33.0); Mean Corpuscular Volume 90.4 fL (80.0-98.0); NRBC Abs Auto 0.000 X10*3/uL (0.0-0.012); NRBC Pct Auto 0.0 /100WBC (0.0-0.2); Platelet Count 216 X10*3/uL (160-400); Red Blood Count 2.81 X10*6/uL (4.60-5.80); White Blood Count 8.7 X10*3/uL (4.8-10.8)
[2024-12-07 10:50] LABS: Appearance Urine Clear; Glucose Urine UA Negative (Negative); PH 5.5 (5.0-9.0); Specific Gravity - Urine 1.025 (1.005-1.025)
[2024-12-07 11:26] LABS: Cholesterol 108 mg/dL (<200); HDL Cholesterol 56 mg/dL (>40); Triglycerides 43 mg/dL (<150)
[2024-12-07 11:34] LABS: Alanine Aminotransferase 121 U/L (0-40); Albumin Level 3.5 g/dL (3.5-5.0); Alkaline Phosphatase 65 U/L (39-117); Anion Gap 13 (12-20); Aspartate Amino Transferase 58 U/L (5-37); Blood Urea Nitrogen 23 mg/dL (9-16); Calcium 8.5 mg/dL (8.4-10.2); Carbon Dioxide 25 mmol/L (22-29); Chloride 108 mmol/L (96-108); Estimated Glomerular Filt Rate > 60; Potassium 3.5 mmol/L (3.3-5.1); Sodium 142 mmol/L (135-145); Total Protein 5.7 g/dL (6.5-8.0)
== END 2024-12-07 06:28 | disposition home or self-care (01) ==
LOC: HO.HMGCLDS 06:27
PROVIDERS: PCP Nurse Practitioner Family; Visit Provider Nurse Practitioner Family
DX: I25.10 Atherosclerotic heart disease of native coronary artery without angina pectoris (principal); I10 Essential (primary) hypertension; E78.2 Mixed hyperlipidemia; K50.10 Crohn's disease of large intestine without complications; R79.89 Other specified abnormal findings of blood chemistry
CPT/HCPCS: 36415; 80053; 80061; 81003; 82550; 83880; 84443; 85025

== ENCOUNTER 2024-12-12 09:49 | Outpatient (REF) | payer MEDICARE, OTHER, SELFPAY ==
--- OUTSIDE RECORDS SUMMARY | 2024-12-12 12:39 | XMS_ITS | Encounter Summary ---
Author Organization [facility] Address 800 [facility] [address] [place] [address] Care Team Providers Care Smoke Control Supervisor Name Role Phone No Pcp, Per Patient Primary Care Provider Corbin Mcrae MD Unavailable [phone] Emile Chamorro Unavailable [phone] Steven Guan Unavailable No Pcp, Per Patient Primary Care Provider Steve Kelsey MD Unavailable Encounter Details Date Type Department Care Team (Late st Contact Info) Description 10/13/2022 Orders Only Heart Center [address] [address] Corbin Thomas MD [address] [place] [address] Atrial fibrillation, unspecified type Social History Tobacco [...] 2:20 PM EST Office Visit Heart Center [address] [address] Corbin Thomas MD [address] [place] [address] documented as of this encounter Visit Diagnoses Diagnosis Atrial fibrillation, unspecified type (Multi-HCC) documented in this encounter Care Teams Smoke Control Supervisor Relationship Specialty Start Date End Date No Pcp, Per Patient [place] PCP - General 03/24/22 05/27/23 No Pcp, Per Patient [place] PCP - General 05/28/23 Corbin Thomas MD [address] [place] [address] Insulation Packer Cardiology 03/24/22 Emile Chamorro [facility] [address] [place] [address] 03/24/22 Steven Guan [address] [facility] [address] [place] [address] 06/05/22 [place] [address] [place] [address] Referring Physician School Administrator 11/30/23 documented as of this encounter
--- OUTSIDE RECORDS SUMMARY | 2024-12-12 12:39 | XMS_ITS | Encounter Summary ---
Author Organization [facility] Address 800 [facility] [address] [place] [address] Care Team Providers Care Customer Care Representative Name Role Phone No Pcp, Per Patient Primary Care Provider Corbin Mcrae MD Unavailable Emile Chamorro Unavailable [phone] Steven Guan Unavailable No Pcp, Per Patient Primary Care Provider Steve Kelsey MD Unavailable Encounter Details Date Type Department Care Team (Late st Contact Info) Description 10/02/2022 Orders Only Heart [address] [address] Corbin Thomas MD [address] [place] [address] Coronary artery disease involving [place] coronary artery of [place] heart without angina pectoris; Left anterior fascicular [...] 02/06/2025 2:20 PM EST Office Visit Heart [address] [address] Corbin Thomas MD [address] [place] [address] documented as of this encounter Visit Diagnoses Diagnosis Coronary artery disease involving [place] coronary artery of [place] heart without angina pectoris Left anterior fascicular block Left bundle branch hemiblock Mixed hyperlipidemia Mixed hyperlipidemia Venous insufficiency Unspecified venous (peripheral) insufficiency Permanent atrial fibrillation (Multi-HCC) Atrial fibrillation documented in this encounter Care Teams Customer Care Representative Relationship Specialty Start Date End Date No Pcp, Per Patient [place] PCP - General 03/24/22 05/27/23 No Pcp, Per Patient [place] PCP - General 05/28/23 Corbin Thomas MD [address] [place] [address] Surface Hydrologist Cardiology 03/24/22 Emile Chamorro [address] [place] [address] 03/24/22 Steven Guan [address] [place] [address] 06/05/22 Steve Escamilla MD [address] [place] [address] Referring Physician Proprietary Trader 11/30/23 documented as of this encounter
--- OUTSIDE RECORDS SUMMARY | 2024-12-12 12:39 | XMS_ITS | Encounter Summary ---
Author Organization [facility] Address [address] [facility] [address] [place] [address] Care Team Providers Care Lockmaker Name Role Phone No Pcp, Per Patient Primary Care Provider Corbin Mcrae MD Unavailable Emile Chamorro Unavailable [phone] Steven Guan Unavailable No Pcp, Per Patient Primary Care Provider Steve Kelsey MD Unavailable Encounter Details Date Type Department Care Team (Late st Contact Info) Description 10/07/2022 Orders Only Heart Center [address] [address] Corbin Thomas MD [address] [place] [address] Atrial fibrillation, unspecified type; senior living (current) use of anticoagulants Social History Tobacco [...] 2:20 PM EST Office Visit Heart Center [address] [address] Corbin Thomas MD [address] [place] [address] documented as of this encounter Visit Diagnoses Diagnosis Atrial fibrillation, unspecified type (Multi-HCC) senior living (current) use of anticoagulants Long-term (current) use of anticoagulants documented in this encounter Care Teams Lockmaker Relationship Specialty Start Date End Date No Pcp, Per Patient [place] PCP - General 03/24/22 05/27/23 No Pcp, Per Patient [place] PCP - General 05/28/23 Corbin Thomas MD [address] [place] [address] Abalone Sheller Cardiology 03/24/22 Emile Chamorro [address] [place] [address] 03/24/22 Steven Guan [address] [place] [address] Drive [address] [place] [address] 06/05/22 Steve Escamilla MD [address] [place] [address] Referring Physician Brewery Cellar Worker 11/30/23 documented as of this encounter
--- OUTSIDE RECORDS SUMMARY | 2024-12-12 12:39 | XMS_ITS | Clinical Summary ---
Author Organization [facility] Address 800 [facility] [address] [place] [address] Care Team Providers Care Merchandising Director Name Role Phone Corbin Thomas MD Unavailable Emile Chamorro Unavailable [phone] Steven Guan Unavailable No Pcp, Per [...] Units by mouth in the morning. Active [id number]-AF-[id number]-epa- [id number] 1.5 mg iron- 8.73 mg capsule,IR - [...] 5 mg tabletIndication s:Coronary artery disease involving [place] coronary artery of [place] heart without angina pectoris TAKE 1 TABLET(5 MG) BY MOUTH DAILY 90 tablet 3 08/29/19 25 Active torsemide (Demadex) 10 mg tabletIndication s:Coronary artery disease involving [place] coronary artery of [place] heart without angina pectoris,Left anterior fascicular block,Mixed [...] from the original. 03/18/22 Amor Ndiaye with [facility] Problem Noted Date Diagnosed Date Atrial fibrillation (Multi-HCC) 10/02/2022 nursing home (current) use of anticoagulants 2022 Coronary artery disease invo lving [place] coronary artery of [place] heart without angina pectoris 07/03/2021 Mixed hyperlipidemia 07/03/2021 Venous insufficiency 07/03/2021 Encounters Date Type Department Care Team Description 12/04/2024 Telephone [facility] [address] [address] Malissa Ardon, RN Labs Only 10/21/2024 Refill [facility] Center of [address] [address] Corbin Thomas MD Coronary artery disease involving [place] coronary artery of [place] heart without angina pectoris ; Left anterior fascicular block; Mixed hyperlipidemia ; Venous insufficiency; Permanent atrial fibrillation (Multi-HCC) from Last 3 Months Family History Medical History Relation Name Comments Atrial fibrillation Brother Coronary artery disease Father [place] a nd PPM at later age Relation [...] 2:20 PM EST Office Visit Heart Center [facility] [address] [place] [address] Corbin Thomas MD [address] [place] [address] Health Maintenance Due Date Last Done Comments [...] topic Insurance MEDICARE PART A AND B [facility] Care Teams Merchandising Director Relationship Specialty Start Date End Date No Pcp, Per Patient [place] PCP - General 05/28/23 Corbin Thomas MD [address] [place] [address] Drafter Chief Design Cardiology 03/24/22 Emile Chamorro [address] [place] [address] 03/24/22 Steven Guan [address] [place] [address] 06/05/22 Steve Escamilla MD [address] [place] [address] Referring Physician Supervisor Public Health Nursing 11/30/23
[2024-12-12 13:39] LABS: MANUAL DIFF FLAG NO
[2024-12-12 14:12] LABS: Hematocrit 27.0 % (42.0-52.0); Hemoglobin 8.3 g/dl (14.0-18.0); Imm Gran Abs Auto 0.06 X10*3/uL (0.00-0.03); Imm Gran Pct Auto 0.7 % (0.0-0.4); Lymphocytes Absolute Auto 2.2 X10*3/uL (1.2-4.9); Mean Corpuscular HGB Conc 30.7 g/dl (31.0-36.0); Mean Corpuscular Hemoglobin 28.0 pg (27.0-33.0); Mean Corpuscular Volume 91.2 fL (80.0-98.0); NRBC Abs Auto 0.000 X10*3/uL (0.0-0.012); NRBC Pct Auto 0.0 /100WBC (0.0-0.2); Platelet Count 257 X10*3/uL (160-400); Red Blood Count 2.96 X10*6/uL (4.60-5.80); White Blood Count 8.5 X10*3/uL (4.8-10.8)
[2024-12-12 14:12] LABS: Alanine Aminotransferase 139 U/L (0-40); Albumin Level 3.6 g/dL (3.5-5.0); Alkaline Phosphatase 70 U/L (39-117); Anion Gap 12 (12-20); Aspartate Amino Transferase 58 U/L (5-37); Blood Urea Nitrogen 19 mg/dL (9-16); Calcium 8.5 mg/dL (8.4-10.2); Carbon Dioxide 28 mmol/L (22-29); Chloride 107 mmol/L (96-108); Estimated Glomerular Filt Rate > 60; Potassium 3.1 mmol/L (3.3-5.1); Sodium 144 mmol/L (135-145); Total Protein 5.9 g/dL (6.5-8.0)
[2024-12-14 05:10] LABS: HBS Num1 0.61 mIU/mL (0-7.99); HBc Num1 0.07 S/CO (0.00-0.79); HBsAGNum1 0.36 S/CO (0.00-0.99); Hepatitis A Antibody IgM 0.16 Index (0-0.79); Hepatitis B Surface Antigen Negative (Negative); ~HepC Num1 0.09 S/CO (0.00-0.79); ~Hepatitis A Antibody IgM Nonreactive (Nonreactive); ~Hepatitis B Surface Antibody NONREACTIVE (Nonreactive); ~Hepatitis C Antibody Nonreactive (Nonreactive)
== END 2024-12-12 09:50 | disposition home or self-care (01) ==
LOC: HO.HMGCLDS 09:49
PROVIDERS: PCP Nurse Practitioner Family; Visit Provider Nurse Practitioner Family
DX: R74.8 Abnormal levels of other serum enzymes (principal); D63.8 Anemia in other chronic diseases classified elsewhere
CPT/HCPCS: 36415; 80053; 85025; 86704; 86706; 86709; 86803; 87340

== ENCOUNTER 2024-12-18 06:56 | Outpatient (REF) | payer MEDICARE, OTHER, SELFPAY ==
--- OUTSIDE RECORDS SUMMARY | 2024-12-18 07:00 | XMS_ITS | Encounter Summary ---
Author Organization [facility] Address [address] [facility] [address] [place] [address] Care Team Providers Care Outside Operator Name Role Phone No Pcp, Per Patient Primary Care Provider Corbin Mcrae MD Unavailable [phone] Emile Chamorro Unavailable [phone] Steven Guan Unavailable No Pcp, Per Patient Primary Care Provider Steve Kelsey MD Unavailable Encounter Details Date Type Department Care Team (Late st Contact Info) Description 10/02/2022 Orders Only Heart [address] [address] Corbin Thomas MD [address] [place] [address] Coronary artery disease involving [place] coronary artery of [place] heart without angina pectoris; Left anterior fascicular [...] 02/06/2025 2:20 PM EST Office Visit Heart [address] [address] Corbin Thomas MD [address] [place] [address] documented as of this encounter Visit Diagnoses Diagnosis Coronary artery disease involving [place] coronary artery of [place] heart without angina pectoris Left anterior fascicular block Left bundle branch hemiblock Mixed hyperlipidemia Venous insufficiency Unspecified venous (peripheral) insufficiency Permanent atrial fibrillation Atrial fibrillation documented in this encounter Care Teams Outside Operator Relationship Specialty Start Date End Date No Pcp, Per Patient [place] PCP - General 03/24/22 05/27/23 No Pcp, Per Patient [place] PCP - General 05/28/23 Corbin Thomas MD [address] [place] [address] Stereoptician Cardiology 03/24/22 Emile Chamorro [facility] [address] [place] [address] 03/24/22 Steven Guan [address] [place] [address] 06/05/22 [place] [address] [place] [address] Referring Physician Configuration Management Consultant 11/30/23 documented as of this encounter
--- OUTSIDE RECORDS SUMMARY | 2024-12-18 07:00 | XMS_ITS | Encounter Summary ---
Author Organization [facility] Address 800 [facility] [address] [place] [address] Care Team Providers Care Skein Spooler Name Role Phone No Pcp, Per Patient Primary Care Provider Corbin Mcrae MD Unavailable [phone] Emile Chamorro Unavailable [phone] Steven Guan Unavailable No Pcp, Per Patient Primary Care Provider Steve Kelsey MD Unavailable Encounter Details Date Type Department Care Team (Late st Contact Info) Description 10/13/2022 Orders Only Heart Center [address] [address] Corbin Thomas MD [address] [place] [address] Atrial fibrillation, unspecified type Social History Tobacco [...] 2:20 PM EST Office Visit Heart Center [address] [address] Corbin Thomas MD [address] [place] [address] documented as of this encounter Visit Diagnoses Diagnosis Atrial fibrillation, unspecified type documented in this encounter Care Teams Skein Spooler Relationship Specialty Start Date End Date No Pcp, Per Patient [place] PCP - General 03/24/22 05/27/23 No Pcp, Per Patient [place] PCP - General 05/28/23 Corbin Thomas MD [address] [place] [address] District Resource Officer Cardiology 03/24/22 Emile Chamorro [facility] [address] [facility] [address] [place] [address] 03/24/22 Steven Guan [address] [place] [address] 06/05/22 Steve Escamilla MD [address] [place] [address] Referring Physician Category Director 11/30/23 documented as of this encounter
--- OUTSIDE RECORDS SUMMARY | 2024-12-18 07:00 | XMS_ITS | Encounter Summary ---
Author Organization [facility] Address 800 [facility] [address] [place] [address] Care Team Providers Care Line Driver Name Role Phone No Pcp, Per Patient Primary Care Provider Corbin Mcrae MD Unavailable [phone] Emile Chamorro Unavailable [phone] Steven Guan Unavailable No Pcp, Per Patient Primary Care Provider Steve Kelsey MD Unavailable Encounter Details Date Type Department Care Team (Late st Contact Info) Description 10/07/2022 Orders Only Heart Center [address] [address] Corbin Thomas MD [address] [place] [address] Atrial fibrillation, unspecified type; care home (current) use of anticoagulants Social History Tobacco [...] 2:20 PM EST Office Visit Heart Center [address] [address] Corbin Thomas MD [address] [place] [address] documented as of this encounter Visit Diagnoses Diagnosis Atrial fibrillation, unspecified type termite control servicer (current) use of anticoagulants Long-term (current) use of anticoagulants documented in this encounter Care Teams Line Driver Relationship Specialty Start Date End Date No Pcp, Per Patient [place] PCP - General 03/24/22 05/27/23 No Pcp, Per Patient [place] PCP - General 05/28/23 Corbin Thomas MD 99 [place] [address] Granite Polisher Machine Cardiology 03/24/22 Emile Chamorro [address] [place] [address] 03/24/22 Steven Guan [address] [place] [address] 06/05/22 Steve Escamilla MD [address] [place] [address] Referring Physician Route Deliverer 11/30/23 documented as of this encounter
--- OUTSIDE RECORDS SUMMARY | 2024-12-18 07:00 | XMS_ITS | Clinical Summary ---
Author Organization [facility] Address 800 [facility] [address] [place] [address] Care Team Providers Care Typesetter Perforator Operator Name Role Phone Corbin Thomas MD Unavailable Emile Chamorro Unavailable [phone] Steven Guan Unavailable No Pcp, Per [...] Units by mouth in the morning. Active owgc-NF-bkn-epa- [id number]-[id number]-mv 1.5 mg iron- 8.73 mg capsule,IR - [...] mg 24 hr tabletIndication s:Paroxysmal atrial fibrillation TAKE 1 TABLET(25 MG) BY MOUTH DAILY. DO NOT CRUSH OR CHEW 90 tablet 3 08/19/19 25 Active aspirin 81 mg EC tablet Take 81 mg by mouth once daily. Active rosuvastatin (Crestor) 5 mg tabletIndication s:Coronary artery disease involving [place] coronary artery of [place] heart without angina pectoris TAKE 1 TABLET(5 MG) BY MOUTH DAILY 90 tablet 3 08/29/19 25 Active torsemide (Demadex) 10 mg tabletIndication s:Coronary artery disease involving [place] coronary artery of [place] heart without angina pectoris,Left anterior fascicular block,Mixed hyperlipidemia,V enous insufficiency,Pe rmanent atrial fibrillation TAKE 1 TABLET(10 MG) BY MOUTH DAILY 90 tablet 3 10/24/19 25 Active hydroCHLOROthiaz watson (HYDRODiuril) 25 mg tablet Take 25 mg by mouth in the morning. 022 Discontinued Active Problems Patient Care Coordination No te Formatting of this note migh t be different from the original. 03/18/22 Amor Ndiaye with [facility] Problem Noted Date Diagnosed Date Atrial fibrillation 10/02/2022 senior living (current) use of anticoagulants 2022 Coronary artery disease invo lving [place] coronary artery of [place] heart without angina pectoris 07/03/2021 Mixed hyperlipidemia 07/03/2021 Venous insufficiency 07/03/2021 Encounters Date Type Department Care Team Description 12/04/2024 Telephone [facility] [address] [address] Malissa Ardon, LONNY Labs Only 10/21/2024 Refill [facility] of [address] [address] Corbin Thomas MD Coronary artery disease involving [place] coronary artery of [place] heart without angina pectoris ; Left anterior fascicular block; Mixed hyperlipidemia ; Venous insufficiency; Permanent atrial fibrillation (Multi-HCC) from Last 3 Months Family History Medical History Relation Name Comments Atrial fibrillation Brother Coronary artery disease Father [place] a nd PPM at later age Relation [...] 2:20 PM EST Office Visit Heart Center [facility] [address] [place] [address] Corbin Thomas MD [address] [place] [address] Health Maintenance Due Date Last Done Comments [...] topic Insurance MEDICARE PART A AND B [facility] Care Teams Typesetter Perforator Operator Relationship Specialty Start Date End Date No Pcp, Per Patient [place] PCP - General 05/28/23 Corbin Thomas MD [address] [place] [address] Conciliator Cardiology 03/24/22 Emile Chamorro [facility] [address] [facility] [place] [facility] [place] [address] 03/24/22 Steven Guan [address] [place] [address] 06/05/22 Steve Escamilla MD [address] [place] [address] Referring Physician Neurosurgical Physician Assistant 11/30/23
[2024-12-18 10:43] LABS: Anion Gap 11 (12-20); Carbon Dioxide 27 mmol/L (22-29); Chloride 110 mmol/L (96-108); Potassium 3.9 mmol/L (3.3-5.1); Sodium 144 mmol/L (135-145)
== END 2024-12-18 06:57 | disposition home or self-care (01) ==
LOC: HO.HMGCLDS 06:56
PROVIDERS: PCP Nurse Practitioner Family; Visit Provider Internal Medicine
DX: E87.6 Hypokalemia (principal)
CPT/HCPCS: 36415; 80051

== ENCOUNTER 2024-12-21 09:00 | Outpatient (AMB) | payer MEDICARE, OTHER, SELFPAY ==
--- NOTE | 2024-12-21 09:02 | A.OFFPC_ITS ---
Vital Signs 3 12/21/24 09:06 Height 5 ft 10 in Weight 263 lb BMI 37.7 BP 116/56 L Blood Pressure Location Lt brachial Position Sitting Respiration 18 Pulse 95 Pulse Source Pulse Oximeter Temp 98.7 F Temp Source Oral Pulse Oximetry (%) 98 Oxygen Delivery Method Room Air Intake Visit Reasons: Discharge follow up [facility] Intake Note: Pt is here today for a HDF. Pt states that he had blood work done so he would like to discuss the results. Allergies oatmeal Allergy (Mild, Uncoded 12/21/24 09:07) hives Tobacco use date assessed: 12/21/24 Fall risk assessment: No Falls in past year Last assessed Fall Risk: 12/21/24 Dental Screening Dental Screen Date: 11/23/24 HPI HPI Comments 2 History of Present Illness0 Details Patient is a 74-year-old male with a past medical history of Crohn's, AFib not on anticoagulation, CAD, HTN, obesity and peripheral edema who is here for a ED discharge follow up. He went to the [facility] Emergency Department on November 30 complaining of leg swelling after he had been at his GI doctor's office and his GI doctor, Dr. Guan, recommended he go to the emergency department. He apparently had been experiencing increased leg swelling and weeping but had not been taking his torsemide because he does not like it as it makes him urinate. He is also taking prednisone at the time which could have contributed to his leg swelling. His vitals were stable at the ED and his labs were relatively benign except for a potassium at 3.1. DVT was ruled out bilaterally, chest x-ray was negative, x-ray of the left foot was negative and he was discharged home with the recommendation of taking 20mg potassium for the next 5 days and to resume taking his torsemide. Of note, Jonah has had 4U PRBC's transfused on 11/16/24 and his H&H has remained stagnant with the continued on/off rectal bleeding though he has been on a prednisone taper and was restarted on a 4 week pred taper on 11/[address] Guan. Today, he tells me that he did take the potassium for 5 days and was sent a refill of the packets but is currently out of the medication. He prefers a tablet rather than the packet. He resumed taking his torsemide 10 mg daily on 11/30. He admits to shortness of breath and fatigue. He states his legs feel less swollen than previously and then are no longer weeping. He has had some rectal bleeding, not for the last 4 days but started again this morning. He is just starting week 2 of a 4 week taper of prednisone, his second one in the last 2 months. The patient is experiencing side effects from prednisone, including loss of taste and mood changes. He also needs CPAP supplies today, his doctor moved to [place] and he got lost, missed his appt and she wouldn't see him. He would like to see someone closer, in [place]. General: Cooperative, healthy appearing, comfortable, no acute distress and well developed Orientation: Patient oriented x3 Limitations: No limitations Head: Normal to inspection Ears: Hearing grossly normal bilaterally Nose: Normal External nose present Face and sinus: Normal facial exam Eyes: Appearance normal, both eyes and all related structures Neck: Normal visual inspection and Yes full ROM Respiratory: Normal respiratory effort and able to speak in complete sentences. Clear to auscultation throughout, no wheezes, rales and rhonchi. Cardiac: irregular rate and irregular rhythm, Normal S1 and S2 Skin: No rashes or lesions noted Neuro: Patient oriented x3, gait normal Extremities: 2+ pitting edema bilaterally Review of Systems - General: Reports fatigue over the past few days. - Cardiovascular: Denies chest pain. - Respiratory: Reports dyspnea. Denies c ough, hemoptysis, or wheezing. - Gastrointestinal: Reports rectal bleed ing starting this morning. - Musculoskeletal: Reports persistent le g swelling. - Neurological: Denies headaches, dizzin ess, or balance issues. - Endocrine: Reports loss of taste All systems reviewed and are unremarkable except as noted in HPI [facility] Medical History (Updated 12/21/24 @ 09:14 by Charity Lemon PA-C) Crohn's colitis A-fib Presence of Watchman left atrial appendage closure device RANULFO (obstructive sleep apnea) BPH (benign prostatic hyperplasia) New onset a-fib Foreign body of finger of right hand Left anterior fascicular block (LAFB) Iron deficiency Depression Vertebral compression fracture PLMD (periodic limb movement disorder) PVD (peripheral vascular disease) Dyslipidemia HTN (hypertension) Crohn's disease Venous insufficiency of both lower extremities Surgical History History of cholecystectomy Status post endovenous radiofrequency ablation (RFA) of saphenous vein Family History Father Cancer of prostate Mother Anxiety Sister Breast cancer Sister Nephritis Sister No problems noted. Sister No problems noted. Sister No problems noted. Daughter Substance use disorder Mental health disorder Daughter No problems noted. Daughter No problems noted. Brother No problems noted. Brother No problems noted. Brother Epilepsy Paternal Grandfather Substance use disorder Social History Household Members: Family Housing: House Do you presently have visiting nurse or other home services: No Alcohol intake: never Patient Tobacco Use Status: Former Tobacco user Years Smoked: 50 years ago e-Cigarette/Vaping Use: Never Used Second Hand Smoke Exposure: No service: Yes Current occupational status: retired Cognitive needs: No Hearing needs: No Vision needs: No Questionnaire PHQ-9 Over the last 2 weeks, how often have you been bothered by any of the following problems? 1. Little interest or pleasure in doing things: not at all 2. Feeling down, depressed, or hopeless: not at all 3. Trouble falling or staying asleep, or sleeping too much: not at all 4. Feeling tired or having little energy: nearly every day 5. Poor appetite or overeating: several days 6. Feeling bad about yourself - or that you are a failure or have let yourself or your family down: not at all 7. Trouble concentrating on things, such as reading the newspaper or watching television: not at all 8. Moving or speaking so slowly that other people could have noticed. Or the opposite - being so fidgety or restless that you have been moving around a lot more than usual: nearly every day 9. Thoughts that you would be better off or of hurting yourself in some way: not at all Total score: 7 Depression Screening Interpretation: Negative Depression Screening Done: Yes Source: Developed by Drs. Steven Kaplan, Alana Day, Perry Elmore and colleagues, with an educational yehuda from [employer]. Thrive Questionnaire Date Thrive assessed: 11/23/24 I am a: Patient What is your living situation today?: I have a steady place to live Within the past 12 months, did the food you bought not last and you didn't have the money to get more?: Never true Within the past 12 months, did you worry whether your food would run out before you got money to buy more?: Never true Do you have trouble paying for medicines?: No Do you have trouble getting transportation to medical appointments?: No Do you have trouble paying your heating and electricity bill?: No Do you have trouble taking care of your child, family member or friend?: No Do you have trouble with day-to-day activities such as bathing, preparing meals, shopping, managing finances, etc.?: No Are you currently unemployed and looking for a job?: No Are you interested in more education?: No Please select the resources that you would like help with: None Currently or been in a relationship where the following occur: No concerns reported THRIVE Score: 0 TAM-7 AMB Questionnaire TAM-7 Date TAM - 7 assessed: 11/23/24 Feeling nervous, anxious, or on edge: 0 = Not at all Not being able to stop or control worryin = Not at all Worrying too much about different things: 0 = Not at all Trouble relaxin = Not at all Being so restless that it is hard to sit still: 0 = Not at all Becoming easily annoyed or irritable: 0 = Not at all Feeling afraid as if something awful might happen: 0 = Not at all Total TAM-7 score (0-4 normal; 5-9 mild; 10-14 moderate; 15-21 severe): 0 Source: Developed by Drs. Steven Kaplan, Alana Day, Perry Elmore and colleagues, with an educational yehuda from [employer]. Physical exam (Primary Care) Vital Signs: Last Vital Signs Temp 98.7 F 12/21/24 09:06 Pulse 95 12/21/24 09:06 Resp 18 12/21/24 09:06 BP 116/56 L 12/21/24 09:06 Pulse Ox 98 12/21/24 09:06 Oxygen Delivery Method Room Air 12/21/24 09:06 BMI result Body Mass Index 37.7 Tobacco/Smoking Status: Tobacco use Status Tobacco use date assessed 12/21/24 12/21/24 09:11 Patient Tobacco Use Status Former Tobacco user 12/21/24 09:02 e-Cigarette/Vaping Use Never Used 12/21/24 09:02 PHQ-9: PHQ-9 Score PHQ-9: Total score 7 12/21/24 09:11 Depression Screening Interpretation: Negative Thrive Assessment: Date of Thrive Assessment Date Thrive assessed 11/23/24 12/21/24 09:02 Currently or been in a relationship where the following occur: No concerns reported Coding Level of Care Code Est Pt Level 5 (47907) Diagnoses Low blood potassium E87.6 Bilateral lower extremity edema R60.0 Elevated brain natriuretic peptide (BNP) level R79.89 Anemia in other chronic diseases classified elsewhere D63.8 Anemia type: other cause Other causes of anemia: chronic disease, other RANULFO (obstructive sleep apnea) G47.33 Assessment & Plan Assessment & Plan (1) Low blood potassium: Code(s): E87.6 - Hypokalemia Category: Medical Plan: Assessment and Plan 1. Hypokalemia - Potassium level 3.9 on 12/18. I have sent a 30d refill 2. Anemia - A complete blood count will be repeated to monitor hemoglobin and hematocrit levels. 3. Rectal bleeding - Will repeat CBC today, plan will depend on results. Patient was educated that if his rectal bleeding increases or if his symptoms increase, he should go to the ED. Likely will need a transfusion at that point. 4. Edema - Consideration for compression stockings and leg elevation was discussed. 5. Dyspnea - A proBNP test will be conducted to assess for possible heart failure exacerbation though lungs were clear on auscultation. 6. Fatigue - Further evaluation is needed to determine the cause, possibly related to anemia, HF, repeating labs today. 7. Prednisone side effects - The tapering schedule will continue as planned to mitigate side effects. 8 RANULFO - Sent STAT referral to resume care with Sleep Medicine at [facility] in [place] rather than the [facility] office. Patient was informed and verbally consented to the use of an ambient scribe for clinic note documentation during this visit. (2) Bilateral lower extremity edema: Code(s): R60.0 - Localized edema Category: Medical Plan: as above (3) Elevated brain natriuretic peptide (BNP) level: Code(s): R79.89 - Other specified abnormal findings of blood chemistry Category: Medical Plan: as above (4) Anemia: Code(s): D64.9 - Anemia, unspecified Category: Medical Qualifiers: Anemia type: other cause Other causes of anemia: chronic disease, other Qualified Code(s): D63.8 - Anemia in other chronic diseases classified elsewhere Plan: as above (5) RANULFO (obstructive sleep apnea): Code(s): G47.33 - Obstructive sleep apnea (adult) (pediatric) Category: Medical Plan: as above Orders: Orders 2 NT Pro B Type Natriuretic Pept Today R79.89 - Other specified abnormal findings of blood chemistry Complete Blood Count Auto Diff Today D63.8 - Anemia in other chronic diseases classified elsewhere Referrals 2 Sleep Medicine Referral G47.33 - Obstructive sleep apnea (adult) (pediatric) Medications: New 2 potassium chloride ER (K-Tab) 20 mEq PO DAILY 30 tabs 0RF Discontinued 2 potassium chloride Discontinued Reason: Duplicate 20 mEq PO DAILY 5 ea 0RF
[2024-12-21 09:06] VITALS: BP 116/56; PULSE 95; RESP 18; TEMP 37.1; O2SAT 98; BMI 37.7
--- OUTSIDE RECORDS SUMMARY | 2024-12-21 09:45 | XMS_ITS | Encounter Summary ---
Author Organization [facility] Address [address] [facility] [address] [place] [address] Care Team Providers Care Leach Tank Tender Name Role Phone No Pcp, Per Patient Primary Care Provider Corbin Mcrae MD Unavailable Emile Chamorro Unavailable [phone] Steven Guan Unavailable No Pcp, Per Patient Primary Care Provider Steve Kelsey MD Unavailable Encounter Details Date Type Department Care Team (Late st Contact Info) Description 10/13/2022 Orders Only [facility] [address] [address] Corbin Thomas MD [address] [place] [phone] Atrial fibrillation, unspecified type Social History Tobacco [...] 2:20 PM EST Office Visit [facility] Center [address] [address] Corbin Thomas MD [address] [place] [phone] documented as of this encounter Visit Diagnoses Diagnosis Atrial fibrillation, unspecified type documented in this encounter Care Teams Leach Tank Tender Relationship Specialty Start Date End Date No Pcp, Per Patient [place] PCP - General 03/24/22 05/27/23 No Pcp, Per Patient [place] PCP - General 05/28/23 Corbin Thomas MD [address] [place] [address] Prenatal Genetic Counselor Cardiology 03/24/22 Emile Chamorro [facility] [address] [place] [address] 03/24/22 Steven Guan [address] [place] [address] 06/05/22 Steve Escamilla MD [address] [place] [address] Referring Physician Corrosion Control Technician 11/30/23 documented as of this encounter
--- OUTSIDE RECORDS SUMMARY | 2024-12-21 09:45 | XMS_ITS | Clinical Summary ---
Author Organization [facility] Address [address] [facility] [address] [place] [address] Care Team Providers Care Gas Manager Name Role Phone Corbin Thomas MD Unavailable Emile Chamorro Unavailable [phone] Steven Guan Unavailable No Pcp, Per [...] Units by mouth in the morning. Active tkpc-ED-pis-epa- [id number]-mv-mv 1.5 mg iron- 8.73 mg capsule,IR - [...] 5 mg tabletIndication s:Coronary artery disease involving [place] coronary artery of [place] heart without angina pectoris TAKE 1 TABLET(5 MG) BY MOUTH DAILY 90 tablet 3 08/29/19 25 Active torsemide (Demadex) 10 mg tabletIndication s:Coronary artery disease involving [place] coronary artery of [place] heart without angina pectoris,Left anterior fascicular block,Mixed [...] from the original. 03/18/22 Amor Ndiaye with [facility] Problem Noted Date Diagnosed Date Atrial fibrillation 10/02/2022 nursing home (current) use of anticoagulants 2022 Coronary artery disease invo lving [place] coronary artery of [place] heart without angina pectoris 07/03/2021 Mixed hyperlipidemia 07/03/2021 Venous insufficiency 07/03/2021 Encounters Date Type Department Care Team Description 12/04/2024 Telephone [facility] [address] [phone] Malissa Ardon, LONNY Labs Only 10/21/2024 Refill [facility] of [address] [address] Corbin Thomas MD Coronary artery disease involving [place] coronary artery of [place] heart without angina pectoris ; Left anterior fascicular block; Mixed hyperlipidemia ; Venous insufficiency; Permanent atrial fibrillation (Multi-HCC) from Last 3 Months Family History Medical History Relation Name Comments Atrial fibrillation Brother Coronary artery disease Father [place] a nd PPM at later age Relation [...] 2:20 PM EST Office Visit Heart Center [facility] [address] [place] [phone] Corbin Thomas MD [address] [place] [phone] Health Maintenance Due Date Last Done Comments [...] topic Insurance MEDICARE PART A AND B [facility] Care Teams Gas Manager Relationship Specialty Start Date End Date No Pcp, Per Patient [place] PCP - General 05/28/23 Corbin Thomas MD [address] [place] [address] Head Of Sales And Marketing Cardiology 03/24/22 Emile Chamorro [facility] [address] [facility] [address] [facility] [address] [facility] [place] [place] [address] 03/24/22 Steven Guan [address] [place] [address] 06/05/22 Steve Escamilla MD [address] [place] [address] Referring Physician Paper Baling Machine Operator 11/30/23
--- OUTSIDE RECORDS SUMMARY | 2024-12-21 09:45 | XMS_ITS | Encounter Summary ---
Author Organization [facility] Address [address] [facility] [address] [place] [address] Care Team Providers Care Medical Clinic Manager Name Role Phone No Pcp, Per Patient Primary Care Provider Corbin Mcrae MD Unavailable [phone] Emile Chamorro Unavailable [phone] Steven Guan Unavailable No Pcp, Per Patient Primary Care Provider Steve Kelsey MD Unavailable Encounter Details Date Type Department Care Team (Late st Contact Info) Description 10/02/2022 Orders Only Heart [address] [phone] Corbin Thomas MD [address] [place] [phone] Coronary artery disease involving [place] coronary artery of [place] heart without angina pectoris; Left anterior fascicular [...] 02/06/2025 2:20 PM EST Office Visit Heart [address] [address] Corbin Thomas MD [address] [place] [address] documented as of this encounter Visit Diagnoses Diagnosis Coronary artery disease involving [place] coronary artery of [place] heart without angina pectoris Left anterior fascicular block Left bundle branch hemiblock Mixed hyperlipidemia Venous insufficiency Unspecified venous (peripheral) insufficiency Permanent atrial fibrillation Atrial fibrillation documented in this encounter Care Teams Medical Clinic Manager Relationship Specialty Start Date End Date No Pcp, Per Patient [place] PCP - General 03/24/22 05/27/23 No Pcp, Per Patient [place] PCP - General 05/28/23 Corbin Thomas MD [address] [place] [address] Delivery Engineer Cardiology 03/24/22 Emile Chamorro [facility] [address] [place] [place] [address] 03/24/22 Steven Guan [address] [place] [address] 06/05/22 [place] [address] [place] [address] Referring Physician Voice Engineer 11/30/23 documented as of this encounter
--- OUTSIDE RECORDS SUMMARY | 2024-12-21 09:45 | XMS_ITS | Encounter Summary ---
Author Organization [facility] Address [address] [facility] [address] [place] [address] Care Team Providers Care Lapidarist Name Role Phone No Pcp, Per Patient Primary Care Provider Corbin Mcrae MD Unavailable Emile Chamorro Unavailable [phone] Steven Guan Unavailable No Pcp, Per Patient Primary Care Provider Steve Kelsey MD Unavailable Encounter Details Date Type Department Care Team (Late st Contact Info) Description 10/07/2022 Orders Only [facility] Center [address] [address] Corbin Thomas MD [address] [place] [address] Atrial fibrillation, unspecified type; halfway (current) use of anticoagulants Social History Tobacco [...] 2:20 PM EST Office Visit [facility] Center [address] [address] Corbin Thomas MD [address] [place] [address] documented as of this encounter Visit Diagnoses Diagnosis Atrial fibrillation, unspecified type intermediate card tender (current) use of anticoagulants Long-term (current) use of anticoagulants documented in this encounter Care Teams Lapidarist Relationship Specialty Start Date End Date No Pcp, Per Patient [place] PCP - General 03/24/22 05/27/23 No Pcp, Per Patient [place] PCP - General 05/28/23 Corbin Thomas MD [address] [place] [address] Physical Geographer Cardiology 03/24/22 Emile Chamorro [address] [place] [address] 03/24/22 Steven Guan [address] [place] [address] 06/05/22 Steve Escamilla MD [address] [place] [address] Referring Physician Unit Receptionist 11/30/23 documented as of this encounter
== END 2024-12-21 13:09 | disposition home or self-care (01) ==
LOC: HO.HMCC 09:01
PROVIDERS: PCP Nurse Practitioner Family; Visit Provider Physician Assistant
DX: E87.6 Hypokalemia (principal); R60.0 Localized edema; R79.89 Other specified abnormal findings of blood chemistry; D63.8 Anemia in other chronic diseases classified elsewhere; G47.33 Obstructive sleep apnea (adult) (pediatric)

== ENCOUNTER 2024-12-21 09:00 | Outpatient (REF) | payer MEDICARE, OTHER, SELFPAY ==
[2024-12-21 13:18] LABS: MANUAL DIFF FLAG NO
[2024-12-21 13:24] LABS: Hematocrit 27.8 % (42.0-52.0); Hemoglobin 8.0 g/dl (14.0-18.0); Imm Gran Abs Auto 0.05 X10*3/uL (0.00-0.03); Imm Gran Pct Auto 0.6 % (0.0-0.4); Lymphocytes Absolute Auto 1.9 X10*3/uL (1.2-4.9); Mean Corpuscular HGB Conc 28.8 g/dl (31.0-36.0); Mean Corpuscular Hemoglobin 27.5 pg (27.0-33.0); Mean Corpuscular Volume 95.5 fL (80.0-98.0); NRBC Abs Auto 0.000 X10*3/uL (0.0-0.012); NRBC Pct Auto 0.0 /100WBC (0.0-0.2); Platelet Count 286 X10*3/uL (160-400); Red Blood Count 2.91 X10*6/uL (4.60-5.80); White Blood Count 8.0 X10*3/uL (4.8-10.8)
[2024-12-21 13:36] LABS: NT Pro B Type Natriuretic Pept 1700.9 pg/mL (<300)
== END 2024-12-21 09:01 | disposition home or self-care (01) ==
LOC: HO.HMGCLDS 09:00
PROVIDERS: PCP Nurse Practitioner Family; Visit Provider Physician Assistant
DX: R79.89 Other specified abnormal findings of blood chemistry (principal); D63.8 Anemia in other chronic diseases classified elsewhere; E87.6 Hypokalemia; R60.0 Localized edema; G47.33 Obstructive sleep apnea (adult) (pediatric)
CPT/HCPCS: 36415; 83880; 85025; 99212

== ENCOUNTER 2024-12-21 16:23 | Emergency (ER) | payer MEDICARE, OTHER, SELFPAY ==
--- NOTE | ~2024-12-21 | XR_ITS ---
CLINICAL HISTORY: SOB 2 view chest x-ray Comparison: CR/SR - XR CHEST 2 VIEWS - 11/30/24 13:32 EDT Findings: Mild pulmonary vascular congestion. No consolidation or effusion. Cardiomediastinal silhouette is stable. No acute fracture. IMPRESSION: Mild pulmonary vascular congestion. This document has been electronically signed by: Nuria Ortiz MD on 12/21/2024 18:55:52
[2024-12-21 17:03] VITALS: BP 122/69; PULSE 93; RESP 18; TEMP 36.9; O2SAT 97; BMI 37.7
--- NOTE | 2024-12-21 17:05 | ED.GENADULT ---
HPI - General Adult General Chief complaint: Dyspnea Stated complaint: sent by provider (? CHF) Time Seen by Provider: 12/21/24 20:13 Related Data Home Medications ?Medication ?Instructions ?Recorded ?Confirmed fluoxetine 40 mg capsule 80 mg PO DAILY 02/26/20 11/13/24 rosuvastatin 5 mg tablet 5 mg PO DAILY 02/26/20 11/13/24 cholecalciferol (vitamin D3) 25 25 mcg PO DAILY@1800 11/21/20 11/13/24 mcg (1,000 unit) tablet ferrous sulfate 325 mg (65 mg 325 mg PO DAILY@1800 11/21/20 11/13/24 iron) tablet (Iron (ferrous sulfate)) multivitamin 1 tab PO DAILY@1800 11/21/20 11/13/24 metoprolol succinate 25 mg 25 mg PO DAILY 07/16/22 11/13/24 tablet,extended release 24 hr torsemide 10 mg tablet 10 mg PO DAILY 09/23/23 11/13/24 aspirin 81 mg tablet,delayed 81 mg PO DAILY 11/18/23 11/13/24 release bupropion HCl 150 mg 24 hr tablet, 150 mg PO DAILY PRN Seasonal 11/18/23 11/13/24 extended release Depression bupropion HCl 300 mg 24 hr tablet, 300 mg PO DAILY PRN Seasonal 11/13/24 11/13/24 extended release Depression calcium carbonate (Calcium 600) 600 mg PO DAILY 11/13/24 11/13/24 triamcinolone acetonide 0.1 % 1 appl topical BID PRN Eczema 11/13/24 11/13/24 topical cream Previous Rx's ?Medication ?Instructions ?Recorded tamsulosin 0.4 mg capsule 0.8 mg (2 x 0.4 mg) PO DAILY 90 07/09/24 days #180 caps prednisone 10 mg tablet See Rx Instructions .Route 11/16/24 .COMPLEX #70 tabs potassium chloride 20 mEq 20 meq PO DAILY #30 tabs 12/21/24 tablet,extended release (K-Tab) Allergies Allergy/AdvReac Type Severity Reaction Status Date / Time oatmeal Allergy Mild hives Uncoded 12/21/24 17:07 PENDING SALE TO [facility] Past Medical History Medical History (Updated 12/22/24 @ 00:32 by Kelly Mejia MD) Crohn's colitis A-fib Presence of Watchman left atrial appendage closure device RANULFO (obstructive sleep apnea) BPH (benign prostatic hyperplasia) New onset a-fib Foreign body of finger of right hand Left anterior fascicular block (LAFB) Iron deficiency Depression Vertebral compression fracture PLMD (periodic limb movement disorder) PVD (peripheral vascular disease) Dyslipidemia HTN (hypertension) Crohn's disease Venous insufficiency of both lower extremities Surgical History History of cholecystectomy Status post endovenous radiofrequency ablation (RFA) of saphenous vein Family History Family History Father Cancer of prostate Mother Anxiety Sister Breast cancer Sister Nephritis Sister No problems noted. Sister No problems noted. Sister No problems noted. Daughter Substance use disorder Mental health disorder Daughter No problems noted. Daughter No problems noted. Brother No problems noted. Brother No problems noted. Brother Epilepsy Paternal Grandfather Substance use disorder Social History Social History Household Members: Family Housing: House Do you presently have visiting nurse or other home services: No Alcohol intake: never Patient Tobacco Use Status: Former Tobacco user Years Smoked: 50 years ago Smoked in Last 30 Days: No e-Cigarette/Vaping Use: Never Used Second Hand Smoke Exposure: No Use of substances other than those prescribed or required for medical reasons: No Advance Directives: Yes Advance Directives on File: Yes Advance Directives Date on File: 11/23/22 Do you have a plan to hurt others: No Plan service: Yes Current occupational status: retired Cognitive needs: No Hearing needs: No Vision needs: No Physical Exam ED Vital Signs: Vital Signs - 24 hr 12/21/24 17:03 12/21/24 19:29 12/21/24 20:45 Temperature 98.4 F 98.3 F Pulse Rate 93 96 88 Respiratory Rate 18 18 16 Blood Pressure 122/69 110/52 L 112/65 Pulse Oximetry 97 98 97 Oxygen Delivery Method Room Air Room Air Room Air 12/21/24 22:44 12/22/24 00:16 Temperature Pulse Rate 87 92 Respiratory Rate 20 20 Blood Pressure 117/62 116/69 Pulse Oximetry 100 97 Oxygen Delivery Method Room Air Room Air BMI result Body Mass Index 37.7 Course Course Course Narrative: This is an RME: Additional HPI, ROS, PE not included below will be deferred to primary provider. RME assessment and note performed by: Aubrie Ortiz PA-C This is a 67-fweg-twn-male, Crohn's colitis, atrial fibrillation not anticoagulated, coronary artery disease, peripheral edema, hypertension, obesity who presents to the ER accompanied by his , with a complaint of increased lower extremity edema, and shortness for breath. Patient went to the doctor for a follow-up today, continued rectal bleeding, BNP was over 1700. Patient has a Watchman. Plan: Labs, chest x-ray, further ER evaluation needed. Medical Decision Making Lab Data 12/22/24 00:11 12/21/24 17:25 Labs: Lab Results 12/21/24 12/22/24 12/22/24 Range/Units 17: 00:11 00:16 WBC 6.0 6.4 (4.8-10.8) X10*3/uL RBC 2.77 L 2.76 L (4.60-5.80) X10*6/uL Hgb 7.6 L 7.7 L (14.0-18.0) g/dl Hct 26.1 L 25.5 L (42.0-52.0) % MCV 94.2 92.4 (80.0-98.0) fL MCH 27.4 27.9 (27.0-33.0) pg MCHC 29.1 L 30.2 L (31.0-36.0) g/dl RDW 21.4 H 21.2 H (11.0-16.0) % Plt Count 237 249 (160-400) X10*3/uL MPV 8.6 L 9.1 L (9.4-12.4) fL Immature Gran % (Auto) 0.7 H 0.8 H (0.0-0.4) % Neut % (Auto) 87.0 H 77.2 H (45-73) % Lymph % (Auto) 6.8 L 14.3 L (20-40) % [place] % (Auto) 3.8 7.2 (2-11) % Eos % (Auto) 1.2 0.3 (0-4) % Baso % (Auto) 0.5 0.2 (0-2) % Lymph # (Auto) 0.4 L 0.9 L (1.2-4.9) X10*3/uL [place] # (Auto) 0.2 0.5 (0.1-1.2) X10*3/uL Eos # (Auto) 0.1 0.0 (0.0-0.4) X10*3/uL Baso # (Auto) 0.0 0.0 (0.0-0.2) X10*3/uL Abs Immat Gran (auto) 0.04 H 0.05 H (0.00-0.03) X10*3/uL Absolute Neuts (auto) 5.2 4.9 (2.0-8.3) x10*3/uL Absolute Nucleated RBC 0.000 0.000 (0.0-0.012) X10*3/uL Nucleated RBC % (auto) 0.0 0.0 (0.0-0.2) /100WBC Sodium 146 H (135-145) mmol/L Potassium 4.5 (3.3-5.1) mmol/L Chloride 110 H (96-108) mmol/L Carbon Dioxide 30 H (22-29) mmol/L Anion Gap 11 L (12-20) BUN 12 (9-16) mg/dL Creatinine 0.90 (0.5-1.4) mg/dL Estim Creat Clear Calc 90.3 Estimated GFR > 60 Random Glucose 116 H (60-115) mg/dL Calcium 8.5 (8.4-10.2) mg/dL Magnesium 2.5 (1.6-2.6) mg/dL Total Bilirubin 0.4 (0.0-1.0) mg/dL Direct Bilirubin 0.2 (0.0-0.5) mg/dL AST 24 (5-37) U/L ALT 33 (0-40) U/L Alkaline Phosphatase 80 (39-117) U/L Troponin I High Sens 5.4 (<3.5-35.0) ng/L NT-Pro-B Natriuret Pep 1494.8 H (<300) pg/mL Total Protein 6.0 L (6.5-8.0) g/dL Albumin 3.6 (3.5-5.0) g/dL Stool Occult Blood POSITIVE (NEGATIVE) Blood Type AB Positive Antibody Screen NEGATIVE Discharge Plan Discharge Clinical Impression: Anemia, Leg swelling Patient Disposition: Home, Self-Care Instructions: Leg Edema (ED) Prescriptions: No Action tamsulosin 0.4 mg capsule 0.8 mg PO DAILY 90 Days Qty: 180 1RF Patient Comments: Takes with food potassium chloride [K-Tab] 20 mEq tablet extended release 20 meq PO DAILY Qty: 30 0RF multivitamin Tablet 1 tab PO DAILY@1800 Patient Comments: Takes with food ferrous sulfate [Iron (ferrous sulfate)] 325 mg (65 mg iron) Tablet 325 mg PO DAILY@1800 cholecalciferol (vitamin D3) 25 mcg (1,000 unit) Tablet 25 mcg PO DAILY@1800 Patient Comments: Takes with food calcium carbonate [Calcium 600] 600 mg calcium (1,500 mg) Tablet 600 mg PO DAILY bupropion HCl 300 mg tablet extended release 24 hr 300 mg PO DAILY PRN (Reason: Seasonal Depression) triamcinolone acetonide 0.1 % cream 1 appl topical BID PRN (Reason: Eczema) prednisone 10 mg tablet See Rx Instructions .Route .COMPLEX Qty: 70 0RF Rx Instructions: 10 mg orally; 4 tabs po daily x 7 days;3 tabs po daily x 7 days;2 tabs po daily x 7 days;1 tab daily x 7 days rosuvastatin 5 mg tablet 5 mg PO DAILY Patient Comments: Takes with food fluoxetine 40 mg capsule 80 mg PO DAILY Patient Comments: Takes with food metoprolol succinate 25 mg tablet extended release 24 hr 25 mg PO DAILY torsemide 10 mg tablet 10 mg PO DAILY aspirin 81 mg tablet,delayed release (DR/EC) 81 mg PO DAILY bupropion HCl 150 mg tablet extended release 24 hr 150 mg PO DAILY PRN (Reason: Seasonal Depression) Referrals: Emile Chamorro FNP-BC [Primary Care Provider, Internal Medicine] - 12/22/24 Print Language: Bahraini
--- NOTE | 2024-12-21 17:06 | ECG_ITS ---
Test Reason : sob Blood Pressure : */* mmHG Vent. Rate : 95 BPM Atrial Rate : * BPM P-R Int : * ms QRS Dur : 94 ms QT Int : 358 ms P-R-T Axes : * -9 267 degrees QTcB Int : 449 ms Atrial fibrillation Nonspecific ST and T wave abnormality Abnormal ECG When compared with ECG of 30-Nov-2024 13:08, T wave inversion less evident in Lateral leads Referred By: Aubrie Ortiz Electronically Signed By: Frank Gonzalez
[2024-12-21 17:30] LABS: MANUAL DIFF FLAG NO
[2024-12-21 17:31] LABS: Hematocrit 26.1 % (42.0-52.0); Hemoglobin 7.6 g/dl (14.0-18.0); Imm Gran Abs Auto 0.04 X10*3/uL (0.00-0.03); Imm Gran Pct Auto 0.7 % (0.0-0.4); Lymphocytes Absolute Auto 0.4 X10*3/uL (1.2-4.9); Mean Corpuscular HGB Conc 29.1 g/dl (31.0-36.0); Mean Corpuscular Hemoglobin 27.4 pg (27.0-33.0); Mean Corpuscular Volume 94.2 fL (80.0-98.0); NRBC Abs Auto 0.000 X10*3/uL (0.0-0.012); NRBC Pct Auto 0.0 /100WBC (0.0-0.2); Platelet Count 237 X10*3/uL (160-400); Red Blood Count 2.77 X10*6/uL (4.60-5.80); White Blood Count 6.0 X10*3/uL (4.8-10.8)
[2024-12-21 17:45] LABS: Alanine Aminotransferase 33 U/L (0-40); Albumin Level 3.6 g/dL (3.5-5.0); Alkaline Phosphatase 80 U/L (39-117); Anion Gap 11 (12-20); Aspartate Amino Transferase 24 U/L (5-37); Blood Urea Nitrogen 12 mg/dL (9-16); Calcium 8.5 mg/dL (8.4-10.2); Carbon Dioxide 30 mmol/L (22-29); Chloride 110 mmol/L (96-108); Creatinine Clr Calc Pharmacy 90.3; Estimated Glomerular Filt Rate > 60; Magnesium 2.5 mg/dL (1.6-2.6); Potassium 4.5 mmol/L (3.3-5.1); Sodium 146 mmol/L (135-145); Total Protein 6.0 g/dL (6.5-8.0)
[2024-12-21 17:52] LABS: NT Pro B Type Natriuretic Pept 1494.8 pg/mL (<300); Troponin-I High Sensitivity 5.4 ng/L (<3.5-35.0)
[2024-12-21 19:29] VITALS: BP 110/52; PULSE 96; RESP 18; TEMP 36.8; O2SAT 98
--- OUTSIDE RECORDS SUMMARY | 2024-12-21 20:06 | XMS_ITS | Encounter Summary ---
Author Organization [facility] Address [address] [facility] [address] [place] [address] Care Team Providers Care Cap Sizer Name Role Phone No Pcp, Per Patient Primary Care Provider Corbin Mcrae MD Unavailable Emile Chamorro Unavailable [phone] Steven Guan Unavailable No Pcp, Per Patient Primary Care Provider Steve Kelsey MD Unavailable Encounter Details Date Type Department Care Team (Late st Contact Info) Description 10/13/2022 Orders Only [facility] [address] [phone] Corbin Thomas MD [address] [place] [id number] Atrial fibrillation, unspecified type Social History Tobacco [...] 2:20 PM EST Office Visit Heart Center [address] [phone] Corbin Thomas MD [address] [place] [id number] documented as of this encounter Visit Diagnoses Diagnosis Atrial fibrillation, unspecified type documented in this encounter Care Teams Cap Sizer Relationship Specialty Start Date End Date No Pcp, Per Patient [place] PCP - General 03/24/22 05/27/23 No Pcp, Per Patient [place] PCP - General 05/28/23 Corbin Thomas MD [address] [place] [address] Jockey Agent Cardiology 03/24/22 Emile Chamorro [facility] [address] [place] [address] 03/24/22 Steven Guan [address] [place] [address] 06/05/22 Steve Escamilla MD [address] [place] [id number] Referring Physician Motor Polarizer 11/30/23 documented as of this encounter
--- OUTSIDE RECORDS SUMMARY | 2024-12-21 20:06 | XMS_ITS | Encounter Summary ---
Author Organization [facility] Address [address] [facility] [address] [place] [address] Care Team Providers Care Bank Messenger Name Role Phone No Pcp, Per Patient Primary Care Provider Corbin Mcrae MD Unavailable Emile Chamorro Unavailable [phone] Steven Guan Unavailable No Pcp, Per Patient Primary Care Provider Steve Kelsey MD Unavailable Encounter Details Date Type Department Care Team (Late st Contact Info) Description 10/07/2022 Orders Only [facility] Center [address] [phone] Corbin Thomas MD [address] [place] [phone] Atrial fibrillation, unspecified type; [facility] (current) use of anticoagulants Social History Tobacco [...] 2:20 PM EST Office Visit [facility] Center [address] [address] Corbin Thomas MD [address] [place] [address] documented as of this encounter Visit Diagnoses Diagnosis Atrial fibrillation, unspecified type 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 [address] 03/24/22 Steven Guan [address] [place] [address] 06/05/22 Steve Escamilla MD [address] [place] [address] Referring Physician Manager People 11/30/23 documented as of this encounter
--- OUTSIDE RECORDS SUMMARY | 2024-12-21 20:06 | XMS_ITS | Encounter Summary ---
Author Organization [facility] Address [address] [facility] [address] [place] [address] Care Team Providers Care Animal Keeper Name Role Phone No Pcp, Per Patient Primary Care Provider Corbin Mcrae MD Unavailable [phone] Emile Chamorro Unavailable [phone] Steven Guan Unavailable No Pcp, Per Patient Primary Care Provider Steve Kelsey MD Unavailable Encounter Details Date Type Department Care Team (Late st Contact Info) Description 10/02/2022 Orders Only Heart [address] [phone] Corbin Thomas MD [address] [place] [phone] Coronary artery disease involving [place] coronary artery of [place] heart without angina pectoris; Left anterior fascicular [...] 02/06/2025 2:20 PM EST Office Visit Heart [address] [address] Corbin Thomas MD [address] [place] [address] documented as of this encounter Visit Diagnoses Diagnosis Coronary artery disease involving [place] coronary artery of [place] heart without angina pectoris Left anterior fascicular block Left bundle branch hemiblock Mixed hyperlipidemia Venous insufficiency Unspecified venous (peripheral) insufficiency Permanent atrial fibrillation Atrial fibrillation documented in this encounter Care Teams Animal Keeper Relationship Specialty Start Date End Date No Pcp, Per Patient [place] PCP - General 03/24/22 05/27/23 No Pcp, Per Patient [place] PCP - General 05/28/23 Corbin Thomas MD [address] [place] [address] Outside Installer Apprentice Cardiology 03/24/22 Emile Chamorro [facility] [address] [place] [address] 03/24/22 Steven Guan [address] [place] [address] 06/05/22 [place] [address] [place] [address] Referring Physician Fitness Supervisor 11/30/23 documented as of this encounter
--- OUTSIDE RECORDS SUMMARY | 2024-12-21 20:06 | XMS_ITS | Clinical Summary ---
Author Organization [facility] Address [address] [facility] [address] [place] [address] Care Team Providers Care Web Press Operator Helper Offset Name Role Phone Corbin Thomas MD Unavailable Emile Chamorro Unavailable [phone] Steven Guan Unavailable No Pcp, Per [...] Units by mouth in the morning. Active [id number]- [id number] 1.5 mg iron- 8.73 mg capsule,IR - [...] 5 mg tabletIndication s:Coronary artery disease involving [place] coronary artery of [place] heart without angina pectoris TAKE 1 TABLET(5 MG) BY MOUTH DAILY 90 tablet 3 08/29/19 25 Active torsemide (Demadex) 10 mg tabletIndication s:Coronary artery disease involving [place] coronary artery of [place] heart without angina pectoris,Left anterior fascicular block,Mixed [...] from the original. 03/18/22 Amor Ndiaye with [facility] Problem Noted Date Diagnosed Date Atrial fibrillation 10/02/2022 shelter (current) use of anticoagulants 2022 Coronary artery disease invo lving [place] coronary artery of [place] heart without angina pectoris 07/03/2021 Mixed hyperlipidemia 07/03/2021 Venous insufficiency 07/03/2021 Encounters Date Type Department Care Team Description 12/04/2024 Telephone [facility] [address] [phone] Malissa Ardon, LONNY Labs Only 10/21/2024 Refill [facility] of [address] [address] Corbin Thomas MD Coronary artery disease involving [place] coronary artery of [place] heart without angina pectoris ; Left anterior fascicular block; Mixed hyperlipidemia ; Venous insufficiency; Permanent atrial fibrillation (Multi-HCC) from Last 3 Months Family History Medical History Relation Name Comments Atrial fibrillation Brother Coronary artery disease Father [place] a nd PPM at later age Relation [...] 2:20 PM EST Office Visit Heart Center [facility] [address] [place] [phone] Corbin Thomas MD [address] [place] [phone] Health Maintenance Due Date Last Done Comments [...] topic Insurance MEDICARE PART A AND B [facility] Care Teams Web Press Operator Helper Offset Relationship Specialty Start Date End Date No Pcp, Per Patient [place] PCP - General 05/28/23 Corbin Thomas MD [address] [place] [address] Provider Network Analyst Cardiology 03/24/22 Emile Chamorro [facility] [address] [facility] [place] [address] 03/24/22 Steven Guan [address] [place] [address] 06/05/22 Steve Escamilla MD [address] [place] [address] Referring Physician Concrete Stone Fabricating Supervisor 11/30/23
[2024-12-21 20:45] VITALS: BP 112/65; PULSE 88; RESP 16; O2SAT 97
[2024-12-21 22:44] VITALS: BP 117/62; PULSE 87; RESP 20; O2SAT 100
--- NOTE | 2024-12-21 23:38 | PC.NURSE ---
this rn assumed care of pt @ [id number], disposition pending per dr downing
--- NOTE | 2024-12-22 00:03 | ED.GENADULT ---
HPI - General Adult General Chief complaint: Dyspnea Stated complaint: sent by provider (? CHF) Time Seen by Provider: 12/21/24 20:13 History of Present Illness HPI narrative: Patient is a 74-year-old male with a history of atrial fibrillation. Currently not on blood thinner patient had a Watchman procedure done in the past. Has been having some leg swelling. Denies any chest pain or diaphoresis. There is no fever no chills. Has a history of atrial flutter. Denies any blood in the stool. Patient has a history of ulcerative colitis. Had been having some blood previously. None today. No chest pain or diaphoresis. No fever no chills. No coughing no congestion or upper respiratory symptoms. Been noticing some leg swelling but it has been going on for months.. Related Data Home Medications ?Medication ?Instructions ?Recorded ?Confirmed fluoxetine 40 mg capsule 80 mg PO DAILY 02/26/20 11/13/24 rosuvastatin 5 mg tablet 5 mg PO DAILY 02/26/20 11/13/24 cholecalciferol (vitamin D3) 25 25 mcg PO DAILY@1800 11/21/20 11/13/24 mcg (1,000 unit) tablet ferrous sulfate 325 mg (65 mg 325 mg PO DAILY@1800 11/21/20 11/13/24 iron) tablet (Iron (ferrous sulfate)) multivitamin 1 tab PO DAILY@1800 11/21/20 11/13/24 metoprolol succinate 25 mg 25 mg PO DAILY 07/16/22 11/13/24 tablet,extended release 24 hr torsemide 10 mg tablet 10 mg PO DAILY 09/23/23 11/13/24 aspirin 81 mg tablet,delayed 81 mg PO DAILY 11/18/23 11/13/24 release bupropion HCl 150 mg 24 hr tablet, 150 mg PO DAILY PRN Seasonal 11/18/23 11/13/24 extended release Depression bupropion HCl 300 mg 24 hr tablet, 300 mg PO DAILY PRN 11/13/24 11/13/24 extended release Depression calcium carbonate (Calcium 600) 600 mg PO DAILY 11/13/24 11/13/24 triamcinolone acetonide 0.1 % 1 appl topical BID PRN Eczema 11/13/24 11/13/24 topical cream Previous Rx's ?Medication ?Instructions ?Recorded tamsulosin 0.4 mg capsule 0.8 mg (2 x 0.4 mg) PO DAILY 90 07/09/24 days #180 caps prednisone 10 mg tablet See Rx Instructions .Route 11/16/24 .COMPLEX #70 tabs potassium chloride 20 mEq 20 meq PO DAILY #30 tabs 12/21/24 tablet,extended release (K-Tab) Allergies Allergy/AdvReac Type Severity Reaction Status Date / Time oatmeal Allergy Mild hives Uncoded 12/21/24 17:07 Review of Systems Review of Systems: No fever no chills no chest pain or shortness of breath PMFSH Past Medical History Medical History (Updated 12/22/24 @ 00:32 by Kelly Mejia MD) Crohn's colitis A-fib Presence of Watchman left atrial appendage closure device RANULFO (obstructive sleep apnea) BPH (benign prostatic hyperplasia) New onset a-fib Foreign body of finger of right hand Left anterior fascicular block (LAFB) Iron deficiency Depression Vertebral compression fracture PLMD (periodic limb movement disorder) PVD (peripheral vascular disease) Dyslipidemia HTN (hypertension) Crohn's disease Venous insufficiency of both lower extremities Surgical History History of cholecystectomy Status post endovenous radiofrequency ablation (RFA) of saphenous vein Family History Family History Father Cancer of prostate Mother Anxiety Sister Breast cancer Sister Nephritis Sister No problems noted. Sister No problems noted. Sister No problems noted. Daughter Substance use disorder Mental health disorder Daughter No problems noted. Daughter No problems noted. Brother No problems noted. Brother No problems noted. Brother Epilepsy Paternal Grandfather Substance use disorder Social History Social History Household Members: Family Housing: House Do you presently have visiting nurse or other home services: No Alcohol intake: never Patient Tobacco Use Status: Former Tobacco user Years Smoked: 50 years ago Smoked in Last 30 Days: No e-Cigarette/Vaping Use: Never Used Second Hand Smoke Exposure: No Use of substances other than those prescribed or required for medical reasons: No Advance Directives: Yes Advance Directives on File: Yes Advance Directives Date on File: 11/23/22 Do you have a plan to hurt others: No Plan service: Yes Current occupational status: retired Cognitive needs: No Hearing needs: No Vision needs: No Physical Exam ED Exam Exam: Appearance: Alert. Oriented X3. No acute distress. Eyes: Pupils equal, round and reactive to light. ENT: Pharynx normal. Neck: Normal inspection. Neck supple. No lymph nodes noted. No crepitus CVS: Normal heart rate and rhythm. Pulses normal. Normal S1 and S2 Respiratory: No respiratory distress. Breath sounds normal. No Wheezing. No rales Abdomen: Soft and nontender. No rigidity. No distention. good BS x4 Skin: Skin warm and dry. Normal skin color. Normal skin turgor. Extremities: 2+ lower extremity edema Neurovascular intact to all extremities. No Lacerations. No Rash Neuro: Oriented X 3. No motor deficit. No sensory deficit. Moving all extermities. No slurred speech Vital Signs: Vital Signs - 24 hr 12/21/24 17:03 12/21/24 19:29 12/21/24 20:45 Temperature 98.4 F 98.3 F Pulse Rate 93 96 88 Respiratory Rate 18 18 16 Blood Pressure 122/69 110/52 L 112/65 Pulse Oximetry 97 98 97 Oxygen Delivery Method Room Air Room Air Room Air 12/21/24 22:44 12/22/24 00:16 Temperature Pulse Rate 87 92 Respiratory Rate 20 20 Blood Pressure 117/62 116/69 Pulse Oximetry 100 97 Oxygen Delivery Method Room Air Room Air BMI result Body Mass Index 37.7 Medical Decision Making Medical Decision Making MDM Narrative: Patient's hemoglobin today came back at 7.6. This on the low side but this is approximately baseline for patient. Gives no history of coronary artery disease he does have a history of atrial fibrillation he had a Watchman so he is not on any blood thinners. I did a rectal exam on patient with nursing present it was brown stool. The stool was sent for guaiac. My interpretation patient's EKG shows an atrial fibrillation pattern heart rate is about 100 there is no acute ST segment elevation is not grossly change. My interpretation patient's chest x-ray showed mild CHF. There is no evidence for overt pneumonia congestive heart failure. I reviewed radiology's reading. Patient is lying flat. No distress. Ambulates without any difficulties. Patient has leg swelling but it has been ongoing for months. BNP is elevated but more likely to be chronic. He does not have a recent echo the most recent echo was done in 2019. At that time patient had a normal ejection fraction. Patient does not want to stay in the hospital we did check 2 sets of hemoglobin to ensure that it is approximately stable. Will have patient follow-up closely on an outpatient basis. He is already on a water pill. Waited the post and cons about adjusting the water pill elected to have patient's primary adjust on an outpatient basis in no acute distress. Patient's serial hemoglobin came back even. Second hemoglobin is about the same. Patient's BNP elevated but likely chronic. He is not in overt congestive heart failure his lungs are clear he is lying flat he is able to ambulate he has no respiratory distress he has a normal O2 sat. Elected to send patient home. He has a history of having blood in his stool. Has a history of ulcerative colitis. But his stool is brown. His hemoglobin is stable. Will discharge. Differential Diagnosis Differential Diagnoses: The differential diagnosis associated with the presentation includes Congestive heart failure, anemia Admission/Observation Consideration of admission/observation: Escalation of care including admission/observation considered Lab Data MDM Lab Attestation statement: I reviewed the patient's lab results. 12/22/24 00:11 12/21/24 17:25 Labs: Lab Results 12/21/24 12/22/24 12/22/24 Range/Units 17:25 00:11 00:16 WBC 6.0 6.4 (4.8-10.8) X10*3/uL RBC 2.77 L 2.76 L (4.60-5.80) X10*6/uL Hgb 7.6 L 7.7 L (14.0-18.0) g/dl Hct 26.1 L 25.5 L (42.0-52.0) % MCV 94.2 92.4 (80.0-98.0) fL MCH 27.4 27.9 (27.0-33.0) pg MCHC 29.1 L 30.2 L (31.0-36.0) g/dl RDW 21.4 H 21.2 H (11.0-16.0) % Plt Count 237 249 (160-400) X10*3/uL MPV 8.6 L 9.1 L (9.4-12.4) fL Immature Gran % (Auto) 0.7 H 0.8 H (0.0-0.4) % Neut % (Auto) 87.0 H 77.2 H (45-73) % Lymph % (Auto) 6.8 L 14.3 L (20-40) % [place] % (Auto) 3.8 7.2 (2-11) % Eos % (Auto) 1.2 0.3 (0-4) % Baso % (Auto) 0.5 0.2 (0-2) % Lymph # (Auto) 0.4 L 0.9 L (1.2-4.9) X10*3/uL [place] # (Auto) 0.2 0.5 (0.1-1.2) X10*3/uL Eos # (Auto) 0.1 0.0 (0.0-0.4) X10*3/uL Baso # (Auto) 0.0 0.0 (0.0-0.2) X10*3/uL Abs Immat Gran (auto) 0.04 H 0.05 H (0.00-0.03) X10*3/uL Absolute Neuts (auto) 5.2 4.9 (2.0-8.3) x10*3/uL Absolute Nucleated RBC 0.000 0.000 (0.0-0.012) X10*3/uL Nucleated RBC % (auto) 0.0 0.0 (0.0-0.2) /100WBC Sodium 146 H (135-145) mmol/L Potassium 4.5 (3.3-5.1) mmol/L Chloride 110 H (96-108) mmol/L Carbon Dioxide 30 H (22-29) mmol/L Anion Gap 11 L (12-20) BUN 12 (9-16) mg/dL Creatinine 0.90 (0.5-1.4) mg/dL Estim Creat Clear Calc 90.3 Estimated GFR > 60 Random Glucose 116 H (60-115) mg/dL Calcium 8.5 (8.4-10.2) mg/dL Magnesium 2.5 (1.6-2.6) mg/dL Total Bilirubin 0.4 (0.0-1.0) mg/dL Direct Bilirubin 0.2 (0.0-0.5) mg/dL AST 24 (5-37) U/L ALT 33 (0-40) U/L Alkaline Phosphatase 80 (39-117) U/L Troponin I High Sens 5.4 (<3.5-35.0) ng/L NT-Pro-B Natriuret Pep 1494.8 H (<300) pg/mL Total Protein 6.0 L (6.5-8.0) g/dL Albumin 3.6 (3.5-5.0) g/dL Stool Occult Blood POSITIVE (NEGATIVE) Blood Type AB Positive Antibody Screen NEGATIVE Independent Interpretation I performed an independent interpretation of an: EKG (Atrial fibrillation heart rate is 100) and Plain X-Ray (Mild CHF) Radiology Impression Discussion of test interpretation with radiology: I have reviewed the radiologist's reading. External Record Review External record reviewed: Office record Discharge Plan Discharge Clinical Impression: Anemia, Leg swelling Patient Disposition: Home, Self-Care Instructions: Leg Edema (ED) Prescriptions: No Action tamsulosin 0.4 mg capsule 0.8 mg PO DAILY 90 Days Qty: 180 1RF Patient Comments: Takes with food potassium chloride [K-Tab] 20 mEq tablet extended release 20 meq PO DAILY Qty: 30 0RF multivitamin Tablet 1 tab PO DAILY@1800 Patient Comments: Takes with food ferrous sulfate [Iron (ferrous sulfate)] 325 mg (65 mg iron) Tablet 325 mg PO DAILY@1800 cholecalciferol (vitamin D3) 25 mcg (1,000 unit) Tablet 25 mcg PO DAILY@1800 Patient Comments: Takes with food calcium carbonate [Calcium 600] 600 mg calcium (1,500 mg) Tablet 600 mg PO DAILY bupropion HCl 300 mg tablet extended release 24 hr 300 mg PO DAILY PRN (Reason: Seasonal Depression) triamcinolone acetonide 0.1 % cream 1 appl topical BID PRN (Reason: Eczema) prednisone 10 mg tablet See Rx Instructions .Route .COMPLEX Qty: 70 0RF Rx Instructions: 10 mg orally; 4 tabs po daily x 7 days;3 tabs po daily x 7 days;2 tabs po daily x 7 days;1 tab daily x 7 days rosuvastatin 5 mg tablet 5 mg PO DAILY Patient Comments: Takes with food fluoxetine 40 mg capsule 80 mg PO DAILY Patient Comments: Takes with food metoprolol succinate 25 mg tablet extended release 24 hr 25 mg PO DAILY torsemide 10 mg tablet 10 mg PO DAILY aspirin 81 mg tablet,delayed release (DR/EC) 81 mg PO DAILY bupropion HCl 150 mg tablet extended release 24 hr 150 mg PO DAILY PRN (Reason: Seasonal Depression) Referrals: Emile Chamorro FNP-BC [Primary Care Provider, Internal Medicine] - 12/22/24 Print Language: Yakut
[2024-12-22 00:16] VITALS: BP 116/69; PULSE 92; RESP 20; O2SAT 97
[2024-12-22 00:24] LABS: OBS Int Ctl Valid YES; OBS1 POSITIVE (NEGATIVE)
[2024-12-22 00:24] LABS: MANUAL DIFF FLAG NO
[2024-12-22 00:25] LABS: Hematocrit 25.5 % (42.0-52.0); Hemoglobin 7.7 g/dl (14.0-18.0); Imm Gran Abs Auto 0.05 X10*3/uL (0.00-0.03); Imm Gran Pct Auto 0.8 % (0.0-0.4); Lymphocytes Absolute Auto 0.9 X10*3/uL (1.2-4.9); Mean Corpuscular HGB Conc 30.2 g/dl (31.0-36.0); Mean Corpuscular Hemoglobin 27.9 pg (27.0-33.0); Mean Corpuscular Volume 92.4 fL (80.0-98.0); NRBC Abs Auto 0.000 X10*3/uL (0.0-0.012); NRBC Pct Auto 0.0 /100WBC (0.0-0.2); Platelet Count 249 X10*3/uL (160-400); Red Blood Count 2.76 X10*6/uL (4.60-5.80); White Blood Count 6.4 X10*3/uL (4.8-10.8)
[2024-12-22 00:52] VITALS: BP 116/69; PULSE 92; RESP 20; TEMP -17.7; TEMP 0; O2SAT 97
== END 2024-12-22 01:39 | disposition home or self-care (01) ==
PROVIDERS: Physician Assistant Medical; Emergency Provider Emergency Medicine Emergency Medical Services; PCP Nurse Practitioner Family
DX: D64.9 Anemia, unspecified (principal); R06.00 Dyspnea, unspecified; M79.89 Other specified soft tissue disorders; I48.91 Unspecified atrial fibrillation; I10 Essential (primary) hypertension
CPT/HCPCS: 36415; 71046; 80048; 80076; 82272; 83735; 83880; 84484; 85025; 86850; 86900; 86901; 93005; 99283; 99285

== ENCOUNTER → 2024-12-21 17:05 | Outpatient (BNV) | payer MEDICARE, OTHER, SELFPAY | PROVIDERS: PCP Nurse Practitioner Family; Visit Provider Radiology Diagnostic Radiology | DX: R06.02 Shortness of breath (principal) | CPT/HCPCS: 71046 ==

== ENCOUNTER → 2024-12-21 17:06 | Outpatient (BNV) | payer MEDICARE, OTHER, SELFPAY | PROVIDERS: Emergency Provider Emergency Medicine Emergency Medical Services; PCP Nurse Practitioner Family; Visit Provider Internal Medicine Cardiovascular Disease | DX: I48.91 Unspecified atrial fibrillation (principal) | CPT/HCPCS: 93010 ==

== ENCOUNTER 2024-12-25 17:53 | Observation (INO) | payer MEDICARE, OTHER, SELFPAY ==
--- NOTE | ~2024-12-25 | MR_ITS ---
EXAMINATION: MR BRAIN WITHOUT CONTRAST CLINICAL INFORMATION: TIA versus stroke. COMPARISON: Correlated to CT dated December 25, 2024. TECHNIQUE: MRI of the brain was obtained using routine sequences without contrast. FINDINGS: No restricted diffusion. No acute intracranial hemorrhage, mass effect, midline shift, hydrocephalus or herniation. Rosado-white matter differentiation is normal. Posterior cranial fossa contents demonstrated no signal abnormality or mass effect. There is a borderline position of the cerebellar tonsils. Sellar/suprasellar region demonstrated no signal abnormality or gross masses. Flow-void signal within the main cerebral vessels is normal. Prominence of the extra-axial CSF spaces cerebral sulci and ventricles likely age-related. Hyperintense T2 FLAIR signal in the right mastoid air cells. MR/MR head/brain wo con IMPRESSION: No acute stroke/nonhemorrhagic ischemia or acute intracranial hemorrhage. No acute brain abnormality. Electronically signed by: Huang Kumari MD 12/26/2024 01:15 PM EDT
--- NOTE | ~2024-12-25 | CT_ITS ---
CLINICAL HISTORY: L arm numbness, weakness CT Head Without Contrast: Comparison: None Findings: Cortical sulci are prominent Basal ganglia are unremarkable No shift in midline structures No intraparenchymal bleeding or abnormal extra axial blood fluid collections Normal pituitary size Clear paranasal sinuses Unremarkable orbital structures No depressed fractures Impression: Unremarkable CT of the head. No acute abnormality. ASPECTS score 10, NORMAL This document has been electronically signed by: Galileo Yu MD on 12/25/2024 18:26:57
--- NOTE | ~2024-12-25 | CT_ITS ---
CLINICAL HISTORY: L arm numbness weakness CTA HEAD, bolus contrast injection. 3D reconstructions and MPRs:: Comparison: None Right Carotid Siphon: Unremarkable Right Anterior Cerebral Artery: A1 and A2 segments are unremarkable. There is peripheral cortical enhancement. Right Middle Cerebral Artery: M1 and M2 segments are unremarkable. There is peripheral cortical enhancement. Right Posterior Cerebral Artery: P1 and P2 segments are unremarkable. There is peripheral enhancement Left Carotid Siphon: Unremarkable Left Anterior Cerebral Artery: A1 and A2 segments are unremarkable. There is peripheral cortical enhancement. Left Middle Cerebral Artery: M1 and M2 segments are unremarkable. There is peripheral cortical enhancement. Left Posterior Cerebral Artery: P1 and P2 segments are unremarkable. There is peripheral cortical enhancement. Basilar Artery: Normal Venous drainage: Normal Impression: No large vessel occlusion No signs of aneurysm. No signs of arterial venous malformation. CTA Neck , Bolus contrast injection, 3D reconstructions and MPRs: Comparison: None Findings: Soft tissues of the neck are unremarkable Superior aorta and branch vessels are unremarkable Right carotid: No stenosis (NASCET) Right vertebral: Unremarkable Left Carotid: No stenosis(NASCET) Left Vertebral: Mild stenosis at proximal left vertebral artery origin, otherwise unremarkable. Impression: No stenosis except for mild narrowing at the origin of the left vertebral artery. No aneurysm or dissection This document has been electronically signed by: Galileo Yu MD on 12/25/2024 19:27:04
--- NOTE | 2024-12-25 17:59 | ECG_ITS ---
Test Reason : STROKE PROTOCOL Blood Pressure : */* mmHG Vent. Rate : 90 BPM Atrial Rate : * BPM P-R Int : * ms QRS Dur : 96 ms QT Int : 386 ms P-R-T Axes : * -25 -74 degrees QTcB Int : 472 ms Atrial fibrillation Nonspecific ST and T wave abnormality Abnormal ECG When compared with ECG of 21-Dec-2024 17:16, No significant change was found Referred By: Linda Alaniz Electronically Signed By: MARIE CASANOVA
[2024-12-25 18:02] LABS: Glucose, Whole Blood 119 mg/dL (60-115)
--- NOTE | 2024-12-25 18:03 | PC.NURSE ---
74 M presents to ED for stroke alert, left sided weakness, last known well 1pm. A+Ox4, able to follow commands. no facial droop noted. Pt brought right to cat scan to CT.
[2024-12-25] MEDS: iohexoL 350 MG/ML 100 ML INFUS..BTL IV (18:08)
--- NOTE | 2024-12-25 18:13 | PC.NURSE ---
In CT, EMS line not compatible with CT contrast, new IV started in LAC 20G.
[2024-12-25 18:22] VITALS: BP 123/62; PULSE 105; RESP 15; O2SAT 96; BMI 38.0
[2024-12-25 18:30] VITALS: PULSE 85; RESP 18; TEMP 37.1; O2SAT 97
--- NOTE | 2024-12-25 18:39 | ED_ITS ---
HPI - Neuro Symptoms/Deficit General Chief Complaint: Stroke Stated Complaint: L arm weakness Source: patient, EMS and old records reviewed Mode of arrival: EMS Limitations: no limitations History of Present Illness ED Provider: CHARIS HPI Narrative: 74 yo male with PMH of Crohns, CAD, RANULFO, afib s/p watchman device just admitted here 11/13 - 11/16 for Crohns flare causing brb per rectum s/p 4 units of blood and steroids. He notes he takes a baby aspirin daily as well as an oral prednisone taper. He comes in after noticing L arm weakness and numbness around 1pm today. He states he waited and it did improve. He also notes dizziness with room spinning when he turns his head to the right. No trauma, no falls, no chest pain, sob. He states I think I had a stroke earlier. Onset (ago): day(s) (today 1pm) Last Observed Normal: 13:00 Location: left arm History of same: No Severity: mild Quality: weak and numb Relieving factors: rest Exacerbating factors: none Context: gradual onset On Anticoagulants: No Associated symptoms: denies other symptoms Treatments Prior to Arrival: none Related Data Home Medications ?Medication ?Instructions ?Recorded ?Confirmed fluoxetine 40 mg capsule 80 mg PO DAILY 02/26/2010/27 rosuvastatin 5 mg tablet 5 mg PO DAILY 02/26/2011/13 cholecalciferol (vitamin D3) 25 25 mcg PO DAILY@1800 0 11/21/20 11/13/24 mcg (1,000 unit) tablet ferrous sulfate 325 mg (65 mg 325 mg PO DAILY@1800 11/13/24 iron) tablet (Iron (ferrous sulfate)) multivitamin 1 tab PO DAILY@1800 11/21/20 11/13/24 metoprolol succinate 25 mg 25 mg PO DAILY 07/16/22 tablet,extended release 24 hr torsemide 10 mg tablet 10 mg PO DAILY 09/23/2310/27 aspirin 81 mg tablet,delayed 81 mg PO DAILY 11/18/23 0 11/13/24 release bupropion HCl 150 mg 24 hr tablet, 150 mg PO DAILY PRN 11/18/23 11/13/24 extended release Depression bupropion HCl 300 mg 24 hr tablet, 300 mg PO DAILY PRN 11/13/24 11/13/24 extended release Depression calcium carbonate (Calcium 600) 600 mg PO DAILY 11/13/24 triamcinolone acetonide 0.1 % 1 appl topical BID PRN E czema 11/13/24 11/13/24 topical cream Previous Rx's ?Medication ?Instructions ?Recorded tamsulosin 0.4 mg capsule 0.8 mg (2 x 0.4 mg) PO DAILY 90 07/09/24 days #180 caps prednisone 10 mg tablet See Rx Instructions .Route 0 11/16/24 .COMPLEX #70 tabs potassium chloride 20 mEq 20 meq PO DAILY #30 tabs tablet,extended release (K-Tab) Allergies Allergy/AdvReac Type Severity Reaction Status Date / Time oatmeal Allergy Mild hives Uncoded 12/25/24 18:24 Review of Systems 2 Review of Systems: Constitutional : No Fever, No Chills, No Fatigue ENT/Mouth : No sore throat, No Rhinorrhea Eyes: No Eye Pain, No Swelling, No Redness Cardiovascular : No Chest Pain, No SOB, No Dyspnea on Exertion Respiratory : No Cough, No Sputum Gastrointestinal : No Nausea, No Vomiting, No Diarrhea, No abdominal Pain Genitourinary : No Dysuria, No Urinary Frequency, No Hematuria, Musculoskeletal : No joint pain, No Myalgias, No Joint Swelling Skin : No Skin Lesions, No rash Neuro : pos numbness, pos weakness, no headache All other systems reviewed and are negative [facility] Past Medical History Attestation statement: The following information was validated with the patient. Source: old records reviewed Medical History Crohn's colitis A-fib Presence of Watchman left atrial appendage closure device RANULFO (obstructive sleep apnea) BPH (benign prostatic hyperplasia) New onset a-fib Foreign body of finger of right hand Left anterior fascicular block (LAFB) Iron deficiency Depression Vertebral compression fracture PLMD (periodic limb movement disorder) PVD (peripheral vascular disease) Dyslipidemia HTN (hypertension) Crohn's disease Venous insufficiency of both lower extremities Surgical History History of cholecystectomy Status post endovenous radiofrequency ablation (RFA) of saphenous vein Family History Family History Father Cancer of prostate Mother Anxiety Sister Breast cancer Sister Nephritis Sister No problems noted. Sister No problems noted. Sister No problems noted. Daughter Substance use disorder Mental health disorder Daughter No problems noted. Daughter No problems noted. Brother No problems noted. Brother No problems noted. Brother Epilepsy Paternal Grandfather Substance use disorder Social History Social History Household Members: Family Housing: House Do you presently have visiting nurse or other home services: No Alcohol intake: never Patient Tobacco Use Status: Former Tobacco user Years Smoked: 50 years ago Smoked in Last 30 Days: No e-Cigarette/Vaping Use: Never Used Second Hand Smoke Exposure: No Use of substances other than those prescribed or required for medical reasons: No Advance Directives: Yes Advance Directives on File: Yes Advance Directives Date on File: 11/23/22 Do you have a plan to hurt others: No Plan service: Yes Current occupational status: retired Cognitive needs: No Hearing needs: No Vision needs: No Physical Exam 2 Vital Signs: Vital Signs: Last Vital Signs Temp 98.7 F 12/25/24 18:30 Pulse 85 12/25/24 18:30 Resp 18 12/25/24 18:30 BP 123/62 12/25/24 18:22 Pulse Ox 97 12/25/24 18:30 O2 Del Method Room Air 12/25/24 18:30 BMI result Body Mass Index 38.0 Appearance: Alert. Oriented X3. No acute distress. Eyes: Pupils equal, round and reactive to light. ENT: Pharynx normal. Neck: Normal inspection. Neck supple. CVS: Normal heart rate and rhythm. Pulses normal. Respiratory: No respiratory distress. Breath sounds normal. Abdomen: Soft and nontender. but has protuberant belly Skin: Skin warm and dry. pale skin color. Extremities: No lower extremity edema. Neuro: Oriented X 3. No motor deficit. No sensory deficit. CN2-12 intact Course Course Course Narrative: holding aspirin took a dose already today Medications Administered Discontinued Medications Generic Name Dose Route Start Last Admin Trade Name Freq PRN Reason Stop Dose Admin Iohexol 100 ml 12/25/24 18:07 12/25/24 18:08 Iohexol 350 Mg/Ml 100 Ml Infus..Btl IV 12/25/24 18:08 70 ml ONCE ONE Administration Medical Decision Making Medical Decision Making [facility] Narrative: 74 yo male with PMH of Crohns, CAD, RANULFO, afib s/p watchman device just admitted here 11/13 - 11/16 for Crohns flare brought in after onset of symptoms - last known well 1pm at this time NIH is 0 will obtain labs, CT scan and CTA - possible admit for TIA symptoms. Not a candidate for TNK given NIH 0 but also just had GIB requiring 4 units of blood. Differential Diagnosis Differential Diagnoses: The differential diagnosis associated with the presentation includes TIA, anemia, dehydration Admission/Observation Consideration of admission/observation: Escalation of care including admission/observation considered admit for TIA Consult Healthcare Provider Management of the patient was discussed with: Hospitalist (will admit) Lab Data [facility] Lab Attestation statement: I reviewed the patient's lab results. 12/25/24 19:08 12/25/24 19:08 Labs: Lab Results 12/25/24 12/25/24 Range/Units 17:56 19:08 WBC 6.1 (4.8-10.8) X10*3/uL RBC 2.85 L (4.60-5.80) X10*6/uL Hgb 8.2 L (14.0-18.0) g/dl Hct 26.8 L (42.0-52.0) % MCV 94.0 (80.0-98.0) fL MCH 28.8 (27.0-33.0) pg MCHC 30.6 L (31.0-36.0) g/dl RDW 20.9 H (11.0-16.0) % Plt Count 238 (160-400) X10*3/uL MPV 8.5 L (9.4-12.4) fL Immature Gran % (Auto) 0.7 H (0.0-0.4) % Neut % (Auto) 79.8 H (45-73) % Lymph % (Auto) 8.2 L (20-40) % [place] % (Auto) 7.7 (2-11) % Eos % (Auto) 3.1 (0-4) % Baso % (Auto) 0.5 (0-2) % Lymph # (Auto) 0.5 L (1.2-4.9) X10*3/uL [place] # (Auto) 0.5 (0.1-1.2) X10*3/uL Eos # (Auto) 0.2 (0.0-0.4) X10*3/uL Baso # (Auto) 0.0 (0.0-0.2) X10*3/uL Abs Immat Gran (auto) 0.04 H (0.00-0.03) X10*3/uL Absolute Neuts (auto) 4.8 (2.0-8.3) x10*3/uL Absolute Nucleated RBC 0.000 (0.0-0.012) X10*3/uL Nucleated RBC % (auto) 0.0 (0.0-0.2) /100WBC PT 11.1 (10.9-12.4) SEC INR 1.0 (0.9-1.1) APTT 27.7 (26.7-34.1) SEC Sodium 145 (135-145) mmol/L Potassium 4.5 (3.3-5.1) mmol/L Chloride 108 (96-108) mmol/L Carbon Dioxide 29 (22-29) mmol/L Anion Gap 13 (12-20) BUN 17 H (9-16) mg/dL Creatinine 1.01 (0.5-1.4) mg/dL Estim Creat Clear Calc 80.8 Estimated GFR > 60 POC Glucose 119 H (60-115) mg/dL Random Glucose 115 (60-115) mg/dL Calcium 8.7 (8.4-10.2) mg/dL Troponin I High Sens 5.9 (<3.5-35.0) ng/L Triglycerides 136 (<150) mg/dL Cholesterol 127 (<200) mg/dL LDL Cholesterol, Calc 45 (<100) mg/dL HDL Cholesterol 55 (>40) mg/dL Independent Interpretation I performed an independent interpretation of an: EKG and CT Scan (no ICH, no LVO) Interpretation: Rate: 90 Rhythm: afib [place]: left Normal QRS complex. ST T wave : nonspecific ST T wave changes but no NOLAN qTC: 472 prior studies: no acute ischemia The study has been interpreted contemporaneously by me. . Radiology Impression Discussion of test interpretation with radiology: I have reviewed the radiologist's reading. Independent Historian Clinical information obtained from an independent historian. History obtained from or confirmed by: EMS External Record Review External record reviewed: Inpatient record and Outpatient record NIH Stroke Scale Internal: Initial- Upon Arrival Level of Consciousness: Alert Level of Consciousness Questions: Answers both questions correctly Level of Consciousness Commands: Performs both tasks correctly Best Gaze: Normal Visual: No visual loss Facial Palsy: Normal Motor Arm (Right): No drift Motor Arm (Left): No drift Motor Leg (Right): No drift Motor Leg (Left): No drift Limb Ataxia: Absent Sensory: Normal Best Language: No aphasia Dysarthia: Normal Extinction and Inattention: No abnormality Score: 0 Discharge Plan Discharge Clinical Impression: Transient cerebral ischemia Patient Disposition: Admitted As Inpatient Print Language: Prydeinig
--- NOTE | 2024-12-25 18:56 | MHC.EDTECH ---
Upon arrival patient blood sugar was 119 and was reported to [facility]
[2024-12-25 19:14] LABS: MANUAL DIFF FLAG NO
[2024-12-25 19:16] LABS: Hematocrit 26.8 % (42.0-52.0); Hemoglobin 8.2 g/dl (14.0-18.0); Imm Gran Abs Auto 0.04 X10*3/uL (0.00-0.03); Imm Gran Pct Auto 0.7 % (0.0-0.4); Lymphocytes Absolute Auto 0.5 X10*3/uL (1.2-4.9); Mean Corpuscular HGB Conc 30.6 g/dl (31.0-36.0); Mean Corpuscular Hemoglobin 28.8 pg (27.0-33.0); Mean Corpuscular Volume 94.0 fL (80.0-98.0); NRBC Abs Auto 0.000 X10*3/uL (0.0-0.012); NRBC Pct Auto 0.0 /100WBC (0.0-0.2); Platelet Count 238 X10*3/uL (160-400); Red Blood Count 2.85 X10*6/uL (4.60-5.80); White Blood Count 6.1 X10*3/uL (4.8-10.8)
[2024-12-25 19:25] LABS: INTERNATIONAL NORM RATIO 1.0 (0.9-1.1); Prothrombin Time 11.1 SEC (10.9-12.4)
--- NOTE | 2024-12-25 19:25 | PC.NURSE ---
assumed care of pt, pt returned from CT scan, tech at bedside for blood work.
[2024-12-25 19:28] LABS: Partial Thromboplastin Time 27.7 SEC (26.7-34.1)
[2024-12-25 19:30] LABS: Anion Gap 13 (12-20); Blood Urea Nitrogen 17 mg/dL (9-16); Calcium 8.7 mg/dL (8.4-10.2); Carbon Dioxide 29 mmol/L (22-29); Chloride 108 mmol/L (96-108); Cholesterol 127 mg/dL (<200); Creatinine Clr Calc Pharmacy 80.8; Estimated Glomerular Filt Rate > 60; HDL Cholesterol 55 mg/dL (>40); Potassium 4.5 mmol/L (3.3-5.1); Sodium 145 mmol/L (135-145); Triglycerides 136 mg/dL (<150)
--- OUTSIDE RECORDS SUMMARY | 2024-12-25 19:32 | XMS_ITS | Encounter Summary ---
Author Organization [facility] Address [address] [facility] [address] [place] [address] Care Team Providers Care Seo Assistant Name Role Phone No Pcp, Per Patient Primary Care Provider Corbin Mcrae MD Unavailable [phone] Emile Chamorro Unavailable [phone] Steven Guan Unavailable No Pcp, Per Patient Primary Care Provider Steve Kelsey MD Unavailable Encounter Details Date Type Department Care Team (Late st Contact Info) Description 10/07/2022 [facility] Only [facility] [address] [id number] Corbin Thomas MD [address] [place] [id number] Atrial fibrillation, unspecified type; USP (current) use of anticoagulants Social History Tobacco [...] 2:20 PM EST Office Visit [facility] [address] [phone] Corbin Thomas MD [address] [place] [phone] documented as of this encounter Visit Diagnoses Diagnosis Atrial fibrillation, unspecified type 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 [address] 03/24/22 Steven Guan [address] [place] [address] 06/05/22 Steve Escamilla MD [address] [place] [address] Referring Physician Belt Machine Operator 11/30/23 documented as of this encounter
--- OUTSIDE RECORDS SUMMARY | 2024-12-25 19:32 | XMS_ITS | Clinical Summary ---
Author Organization [facility] Address [address] [facility] [address] [place] [address] Care Team Providers Care Dust Mill Operator Name Role Phone Corbin Thomas MD Unavailable Emile Chamorro Unavailable [phone] Steven Guan Unavailable No Pcp, Per [...] Units by mouth in the morning. Active [id number]- [id number] 1.5 mg iron- 8.73 mg capsule,IR - [...] 5 mg tabletIndication s:Coronary artery disease involving [place] coronary artery of [place] heart without angina pectoris TAKE 1 TABLET(5 MG) BY MOUTH DAILY 90 tablet 3 08/29/19 25 Active torsemide (Demadex) 10 mg tabletIndication s:Coronary artery disease involving [place] coronary artery of [place] heart without angina pectoris,Left anterior fascicular block,Mixed [...] from the original. 03/18/22 Amor Ndiaye with [facility] Problem Noted Date Diagnosed Date Atrial fibrillation 10/02/2022 snf (current) use of anticoagulants 2022 Coronary artery disease invo lving [place] coronary artery of [place] heart without angina pectoris 07/03/2021 Mixed hyperlipidemia 07/03/2021 Venous insufficiency 07/03/2021 Encounters Date Type Department Care Team Description 12/04/2024 Telephone [facility] [address] [phone] Malissa Ardon, LONNY Labs Only 10/21/2024 Refill [facility] of [address] [address] Corbin Thomas MD Coronary artery disease involving [place] coronary artery of [place] heart without angina pectoris ; Left anterior fascicular block; Mixed hyperlipidemia ; Venous insufficiency; Permanent atrial fibrillation (Multi-HCC) from Last 3 Months Family History Medical History Relation Name Comments Atrial fibrillation Brother Coronary artery disease Father [place] a nd PPM at later age Relation [...] 2:20 PM EST Office Visit Heart Center [facility] [address] [place] [phone] Corbin Thomas MD [address] [place] [address] Health Maintenance Due Date Last Done Comments [...] topic Insurance MEDICARE PART A AND B [facility] Care Teams Dust Mill Operator Relationship Specialty Start Date End Date No Pcp, Per Patient [place] PCP - General 05/28/23 Corbin Thomas MD [address] [place] [address] Formula Clerk Cardiology 03/24/22 Emile Chamorro [facility] [address] [place] [address] 03/24/22 Steven Guan [address] [place] [address] 06/05/22 Steve Escamilla MD [address] [place] [address] Referring Physician Boiler House Mechanic 11/30/23
--- OUTSIDE RECORDS SUMMARY | 2024-12-25 19:32 | XMS_ITS | Encounter Summary ---
Author Organization [facility] Address [address] [facility] [address] [place] [address] Care Team Providers Care Dental Insurance Biller Name Role Phone No Pcp, Per Patient Primary Care Provider Corbin Mcrae MD Unavailable [phone] Emile Chamorro Unavailable [phone] Steven Guan Unavailable No Pcp, Per Patient Primary Care Provider Steve Kelsey MD Unavailable Encounter Details Date Type Department Care Team (Late st Contact Info) Description 10/02/2022 Orders Only Heart [address] [address] Corbin Thomas MD [address] [place] [phone] Coronary artery disease involving [place] coronary artery of [place] heart without angina pectoris; Left anterior fascicular [...] 02/06/2025 2:20 PM EST Office Visit Heart [address] [address] Corbin Thomas MD [address] [place] [address] documented as of this encounter Visit Diagnoses Diagnosis Coronary artery disease involving [place] coronary artery of [place] heart without angina pectoris Left anterior fascicular block Left bundle branch hemiblock Mixed hyperlipidemia Venous insufficiency Unspecified venous (peripheral) insufficiency Permanent atrial fibrillation Atrial fibrillation documented in this encounter Care Teams Dental Insurance Biller Relationship Specialty Start Date End Date No Pcp, Per Patient [place] PCP - General 03/24/22 05/27/23 No Pcp, Per Patient [place] PCP - General 05/28/23 Corbin Thomas MD [address] [place] [address] Senior Software Qa Engineer Cardiology 03/24/22 Emile Chamorro [facility] [address] [place] [address] 03/24/22 Steven Guan [address] [place] [address] 06/05/22 [place] [address] [place] [address] Referring Physician Content Coordinator 11/30/23 documented as of this encounter
--- OUTSIDE RECORDS SUMMARY | 2024-12-25 19:32 | XMS_ITS | Encounter Summary ---
Author Organization [facility] Address [address] [facility] [address] [place] [address] Care Team Providers Care Air Drier Name Role Phone No Pcp, Per Patient Primary Care Provider Corbin Mcrae MD Unavailable [phone] Emile Chamorro Unavailable [phone] Steven Guan Unavailable No Pcp, Per Patient Primary Care Provider Steve Kelsey MD Unavailable Encounter Details Date Type Department Care Team (Late st Contact Info) Description 10/13/2022 Orders Only Heart Center [address] [address] Corbin Thomas MD [address] [place] [phone] Atrial fibrillation, unspecified type Social History Tobacco [...] PM EST Office Visit Heart Center [address] [address] Corbin Thomas MD [address] [place] [address] documented as of this encounter Visit Diagnoses Diagnosis Atrial fibrillation, unspecified type documented in this encounter Care Teams Air Drier Relationship Specialty Start Date End Date No Pcp, Per Patient [place] PCP - General 03/24/22 05/27/23 No Pcp, Per Patient [place] PCP - General 05/28/23 Corbin Thomas MD [address] [place] [address] Button Sawyer Cardiology 03/24/22 Emile Chamorro [facility] [address] [place] [address] 03/24/22 Steven Guan [address] [place] [address] 06/05/22 Steve Escamilla MD [address] [place] [address] Referring Physician Station Installer 11/30/23 documented as of this encounter
[2024-12-25 19:36] LABS: Troponin-I High Sensitivity 5.9 ng/L (<3.5-35.0)
--- NOTE | 2024-12-25 20:51 | PHA.MEDREC ---
Addendum entered by Naldo Cantrell PharmD 12/25/24 20:54: reviewed Original Note: Pharmacy Consult ? Medication Reconciliation Pharmacy has completed the medication reconciliation. Patient was able to confirm all of his medications. Patient states he is on the last week of prednisone 10 mg daily for 7 days. patient had all of his morning medications today.
--- NOTE | 2024-12-25 21:18 | PM.IMHP ---
History of Present Illness Date of Service: 12/25/24 Attending physician on admission: Jannie Amezquita Chief Complaint: L sided weakness Pt is a 74-year-old male with past medical history recent GI bleed with the [id number] - 11/16 requiring 4 units of blood and steroids secondary to Crohn's flare, AFib rate controlled status post Watchman device 2 years prior at [facility], RANULFO, PVD, CAD, BPH, hyperlipidemia, KEVIN, MDD presents to the ED with complaints that he may have had a stroke earlier in the day due to persistent left arm weakness and numbness. Patient is right-handed dominant. Patient was last known well at 13:00. Patient states he was working in his garage puttering around with no heavy lifting or arduous activity. Patient was on his way back to the house to eat lunch and noted the left arm weakness, heaviness with numbness. Patient denied any chest pain, abdominal pain, headache or visual changes. Patient is reporting increasing shortness of breath especially with exertion but also now noted at rest over the last week. Patient had notify his PCP earlier regarding swelling in his legs that had increased and his PCP ordered him to take two torsemide pills daily x3 days and patient scheduled appointment to be seen on . Patient was driven to the emergency department and on arrival did not meet the criteria for TNK and his NIH score was 0 per ED provider. Patient states his left arm numbness has resolved. Patient currently on room air satting 98%. Hemodynamics stable with no evidence of shock or sepsis. Patient remains in AFib rate controlled. Current neuro exam reassuring. Patient denies current use of tobacco, alcohol or marijuana. Workup in the ED included head CT and CTA of the head and neck all negative for acute findings. Patient's H&H remained stable at 8.2 and 26.6. Platelets 238, lipid panel within normal limits. A1c is pending. Troponin 5.9. Patient does have history of elevated BNP and NT-BNP pending. Last echo recorded in patient's chart was 2019 with a normal EF. Patient does follow with a supervisor kennel in [place]. Patient did not think he had heart failure as he felt heart failure meant that the heart stopped. CHF education started in the ED. Patient does also report that he had a recent colonoscopy and upper endoscopic scope approximately 4 months prior in an outside facility. Review of Systems Review of Systems: Patient denies any chest pain, abdominal pain, nausea or vomiting. Patient states the left arm heaviness, weakness and numbness has resolved. Patient is right-hand dominant. Patient has been reporting shortness of breath with exertion more notably at rest over the last week. Overall patient has had shortness of breath over the last 2 months. Patient has been on torsemide for some time. Yes all other systems are reviewed and are negative [facility] Medical History Crohn's colitis A-fib Presence of Watchman left atrial appendage closure device RANULFO (obstructive sleep apnea) BPH (benign prostatic hyperplasia) New onset a-fib Foreign body of finger of right hand Left anterior fascicular block (LAFB) Iron deficiency Depression Vertebral compression fracture PLMD (periodic limb movement disorder) PVD (peripheral vascular disease) Dyslipidemia HTN (hypertension) Crohn's disease Venous insufficiency of both lower extremities Cognitive capacity: Alert and orientated x3 Functional capacity: independent ambulation Family History Father Cancer of prostate Mother Anxiety Sister Breast cancer Sister Nephritis Sister No problems noted. Sister No problems noted. Sister No problems noted. Daughter Substance use disorder Mental health disorder Daughter No problems noted. Daughter No problems noted. Brother No problems noted. Brother No problems noted. Brother Epilepsy Paternal Grandfather Substance use disorder Surgical History History of cholecystectomy Status post endovenous radiofrequency ablation (RFA) of saphenous vein Social History Household Members: Family Housing: House Do you presently have visiting nurse or other home services: No Alcohol intake: never Patient Tobacco Use Status: Former Tobacco user Years Smoked: 50 years ago e-Cigarette/Vaping Use: Never Used Second Hand Smoke Exposure: No Advance Directives Date on File: 11/23/22 service: Yes Current occupational status: retired Cognitive needs: No Hearing needs: No Vision needs: No Ebola Risk: Travel/Contact With Anyone From Affected Area/s: No Has Patient Experienced Ebola Symptoms: No Meds Allergies Allergy/AdvReac Type Severity Reaction Status Date / Time oatmeal Allergy Mild hives Uncoded 12/25/24 18:24 Active Medications: Current Medications Acetaminophen (Acetaminophen 325 Mg Tablet) 650 mg PO Q6H PRN PRN Reason: Pain, Mild 1-3,fever,headache Albuterol/Ipratropium (Albuterol/Iprat 2.5/0.5mg 3 Ml Ampul.Neb) 3 ml INHALE Q4H PRN PRN Reason: Shortness of Breath/Wheezing Calcium Carbonate (Calcium Carbonate 750 Mg Tab.Chew) 750 mg PO Q4H PRN PRN Reason: Heartburn Magnesium Hydroxide (Milk Of Magnesia 30 Ml Oral.Susp) 30 ml PO DAILY PRN PRN Reason: Constipation Melatonin (Melatonin 3 Mg Tablet) 6 mg PO BEDTIME PRN PRN Reason: Insomnia Ondansetron HCl (Ondansetron Hcl 4 Mg/2 Ml Vial) 4 mg IVPUSH Q8H PRN PRN Reason: Nausea and Vomiting Polyethylene Glycol (Polyethylene Glycol 3350 17 Gm Powd.Pack) 17 gm PO DAILY PRN PRN Reason: Constipation Senna (Sennosides 8.6 Mg Tablet) 17.2 mg PO BEDTIME EMBER Sodium Chloride (0.9 % Sodium Chloride Flush 3 Ml Syringe) 3 ml IVFLUSH QSHIFT [facility] Home Medications ?Medication ?Instructions ?Recorded ?Confirmed ?Last Taken ?Type fluoxetine 40 mg capsule 80 mg PO DAILY 02/26/20 12/25/24 12/25/24 History rosuvastatin 5 mg tablet 5 mg PO DAILY 02/26/20 12/25/24 12/25/24 History cholecalciferol (vitamin D3) 25 25 mcg PO DAILY@1800 11/21/20 12/25/24 12/25/24 History mcg (1,000 unit) tablet ferrous sulfate 325 mg (65 mg 325 mg PO DAILY 11/21/20 12/25/24 12/25/24 History iron) tablet (Iron (ferrous sulfate)) multivitamin 1 tab PO BEDTIME 11/21/20 12/25/24 12/24/24 History metoprolol succinate 25 mg 25 mg PO DAILY 07/16/22 12/25/24 12/25/24 History tablet,extended release 24 hr torsemide 10 mg tablet 20 mg PO DAILY 09/23/23 12/25/24 12/25/24 History aspirin 81 mg tablet,delayed 81 mg PO DAILY 11/18/23 12/25/24 12/25/24 History release bupropion HCl 150 mg 24 hr tablet, 150 mg PO DAILY PRN Seasonal 11/18/23 12/25/24 Unknown History extended release Depression bupropion HCl 300 mg 24 hr tablet, 300 mg PO DAILY PRN Seasonal 11/13/24 12/25/24 Unknown History extended release Depression calcium carbonate (Calcium 600) 600 mg PO BEDTIME 11/13/24 12/25/24 12/24/24 History triamcinolone acetonide 0.1 % 1 appl topical BID PRN Eczema 11/13/24 12/25/24 Unknown History topical cream potassium chloride 20 mEq 20 meq PO DAILY 12/25/24 12/25/24 12/25/24 History tablet,extended release prednisone 10 mg tablet See Taper PO DAILY 12/25/24 12/25/24 12/25/24 History Physical Exam Vital Signs and Narrative: Vital Signs: Last Vital Signs Temp 98.7 F 12/25/24 18:30 Pulse 85 12/25/24 18:30 Resp 18 12/25/24 18:30 BP 123/62 12/25/24 18:22 Pulse Ox 97 12/25/24 18:30 O2 Del Method Room Air 12/25/24 18:30 BMI result Body Mass Index 38.0 Alert and orientated X3, able to give good history. Neuro: CN II-X11 intact, no deficits, visual acuity intact EYES: PERRLA, EOM intact, sclerae nonicteric, glasses on ENT: hearing intact, no issues with swallowing, uvula midline, lips moist, nares patent no epistaxis, upper and lower dentures proper fitting Cardiac: S1 S2 RRR, no murmur, no JVD, moderate edema/anasarca in Lower exts Pulmonary: lungs diminished bilaterally Abdominal: BS active in all 4 quadrants, no guarding, tenderness, rebounding, obese MSK: strength 4/5 upper and lower extremities : no CVA tenderness no bladder distension Extremities: Moderate edema/anasarca in lower extremities, PT and DP pulses palpable +2, skin warm Psych: mood stable, judgement and insight good Skin: Mild bruising in extremities, no new skin rashes or lesions Results Labs 12/25/24 19:08 12/25/24 19:08 Labs: Laboratory Results - last 24 hr 12/25/24 12/25/24 17:56 19:08 MCV 94.0 MCH 28.8 MCHC 30.6 L RDW 20.9 H Plt Count 238 MPV 8.5 L Immature Gran % (Auto) 0.7 H Neut % (Auto) 79.8 H Lymph % (Auto) 8.2 L [place] % (Auto) 7.7 Eos % (Auto) 3.1 Baso % (Auto) 0.5 Lymph # (Auto) 0.5 L [place] # (Auto) 0.5 Eos # (Auto) 0.2 Baso # (Auto) 0.0 Abs Immat Gran (auto) 0.04 H Absolute Neuts (auto) 4.8 Absolute Nucleated RBC 0.000 Nucleated RBC % (auto) 0.0 PT 11.1 INR 1.0 APTT 27.7 Anion Gap 13 Estim Creat Clear Calc 80.8 Estimated GFR > 60 POC Glucose 119 H Random Glucose 115 Calcium 8.7 Troponin I High Sens 5.9 Triglycerides 136 Cholesterol 127 LDL Cholesterol, Calc 45 HDL Cholesterol 55 ECG Attestation: I personally reviewed and interpreted this ECG as follows: (AFib rate controlled) Prior ECG tracings: available for review Imaging Radiologist's Impressions: Head CT Findings: Cortical sulci are prominent Basal ganglia are unremarkable No shift in midline structures No intraparenchymal bleeding or abnormal extra axial blood fluid collections Normal pituitary size Clear paranasal sinuses Unremarkable orbital structures No depressed fractures Impression: Unremarkable CT of the head. No acute abnormality. ASPECTS score 10, NORMAL Head and neck CTA Impression: No stenosis except for mild narrowing at the origin of the left vertebral artery. No aneurysm or dissection Assessment and Plan (1) Transient cerebral ischemia: Qualifiers: Transient cerebral ischemia type: unspecified Qualified Code(s): G45.9 - Transient cerebral ischemic attack, unspecified Status: Acute Plan Pt is a 74-year-old male with past medical history recent GI bleed with the [id number]/18 - 11/16 requiring 4 units of blood and steroids secondary to Crohn's flare, AFib rate controlled status post Watchman device 2 years prior at [facility], RANUL[place], PVD, CAD, BPH, hyperlipidemia, KEVIN, MDD presents to the ED with complaints that he may have had a stroke earlier in the day due to persistent left arm weakness and numbness. Patient presents with elevated BNP and is being admitted for TIA versus CVA and heart failure workup. TIA, Rule out CVA MRI of the brain ordered without contrast Neurology consulted Echo pending, ? ASD defect on echo 2019 ASA received earlier today, ASA daily as long as H/H stable and occult negative PT/OT as needed Neurovascular checks ordered Continue telemetry Patient passed bedside swallow diet ordered LIPID panel WNL (triglycerides 136, total cholesterol 127, LDL 45, HDL 55) - continue current dose of rosuvastatin or equivalent AIC pending Crohn's disease without current flare with Recent GIB/ flare 11/20 requiring admission and transfusion H/H currently stable (8.2/26.6), pt received ASA today,unclear if pt will require plavix, await neuro recommendations Patient was on prednisone daily via taper after last admission, med rec pending Chronic Anemia with recent GIB Stool for occult pending PPI ordered Consider GI and Heme consultations with any abnormal findings Monitor CBC daily Last colonoscopy and EGD was 4 months prior (estimated) Elevated BNP Patient follows with supervisor kennel at a [place], patient unaware that he may have heart failure Patient told this morning to increase his torsemide to 2 tablets daily x3 days per PCP Patient had scheduled follow-up appointment with PCP on Echo pending secondary to TIA workup Vision Specialist consulted Daily preston, measure IOs, Fluid allowance 1500 mls AFIB with watchman in place Watchman placed proximally 2 years prior with no complication Patient remains in AFib rate controlled No AC due to the Watchman Continue metoprolol Continue telemetry BPH No issues with voiding Continue tamsulosin UA pending RANULFO CPAP ordered MDD Continue bupropion and fluoxetine Mood stable DVT prophylaxis: Lovenox once stool for occult resulted and negative Med rec pending Full code status Quality Stroke Does the patient have a stroke diagnosis?: No Reason for No Anti-thrombotic by Day Two: Contraindicated (await stool for occult, recent GIB ) VTE Prior VTE?: No VTE Risk Level:: Medical - moderate - high VTE Device Contraindication: N/A - Device Ordered VTE Drug Contraindication: N/A - Med Ordered
[2024-12-25 21:45] LABS: NT Pro B Type Natriuretic Pept 1534.1 pg/mL (<300)
[2024-12-25 22:58] LABS: Iron 339 mcg/dL (45-160); Percent Iron Saturation 93 % (15-50); Total Iron Binding Capacity 364 mcg/dL (228-428); Unsaturated Iron Binding < 25 ug/dL
[2024-12-26] VITALS (7 sets, daily range): BP systolic 105–124; BP diastolic 61–70; PULSE 66–98; RESP 13–18; TEMP 36.2–37; O2SAT 94–98
--- NOTE | 2024-12-26 00:48 | PC.NURSE ---
MRI questioner filled out with pt, faxed down to MRI department.
[2024-12-26] MEDS: 0.9 % Sodium Chloride Flush 3 ML SYRINGE IVFLUSH ×2 (01:07→09:40)
[2024-12-26 01:49] LABS: Appearance Urine Clear; Glucose Urine UA Negative (Negative); PH 7.0 (5.0-9.0); Specific Gravity - Urine 1.015 (1.005-1.025)
[2024-12-26 05:18] LABS: Hemoglobin A1C 59.7484 umol/L; Total Hemoglobin (HGBA1C) 2149.6168 umol/L
--- NOTE | 2024-12-26 07:00 | CA_ITS ---
Transthoracic Echocardiogram Patient (Last, First, Middle): Jonah Bond, Gender: M Date of : 1950 Age: 74 Procedure Date: 12/26/2024 Procedure Type: Transthoracic Echocardiogram Location: ER Height: 177.8 cm Weight: 119.75 kg BSA: 2.35 m2 Heart Rate: bpm BP: 124 / 61 mmHg Equipment Scheduler: BULMARO Referring MD: Lauren Austin DATA WAREHOUSE ANALYST-BC Symptoms: TIA vs CVA, elevated BNP Study Quality: Adequate ECG Rhythm: Atrial Fibrillation Conclusions: - The left ventricular systolic function is mildly decreased. The visually estimated ejection fraction is between 45-50%. - No obvious valvular pathology seen on this study. Findings Left Ventricle Normal left ventricular cavity size. There is mildly increased left ventricular wall thickness. The left ventricular systolic function is mildly decreased. The visually estimated ejection fraction is between 45-50%. Diastolic function is indeterminate on the basis of available data. Right Ventricle Normal right ventricular cavity size. There is mildly decreased right ventricular systolic function. Atria The left atrium is mildly dilated. Patent foramen ovale detected using by color Doppler. The right atrium is normal in size. Aortic Valve There is a normal trileaflet aortic valve. There is mild calcification of the aortic valve. There is no aortic valve stenosis. There is no aortic valve regurgitation. Mitral Valve The mitral valve appears normal. There is mild mitral valve regurgitation. There is no mitral valve stenosis. Pulmonic Valve The pulmonic valve is likely normal. Tricuspid Valve There is trace tricuspid valve regurgitation. There is no evidence of pulmonary hypertension. Great Vessels The asc aorta and aortic arch are normal in size. Venous The inferior vena cava is normal in size and collapses greater than 50% with inspiration. Pericardium/Pleural There is no evidence of pericardial effusion. Prior Study Comparison Changes noted compared to prior study dated: 08/03/2019. slight decrease in LVEF. Recommendations, Care & Conclusions No obvious valvular pathology seen on this study. Measurements 2D Linear Measurements IVSd: 1.10 0.6-0.9/0.6-1.0 cm LVIDd: 5.63 3.9-5.3/4.2-5.9 cm LVIDd Index: 2.40 2.4-3.2/2.2-3.1 cm/m2 LVIDs: 4.33 2.0-3.6 cm LVPWd: 1.17 0.7-1.1 cm LA Diam: 5.10 2.7-3.8/3.0-4.0 cm LAIDs Index: 2.17 1.5-2.3 cm/m2 LV Mass: 327.17 67-162/88-224 g LV Mass Index: 139.22 43-95/49-115 g/m2 LVOT Diam: 2.60 3.0+(-)1.3 cm 2D Systolic Function EF 4C: 43.80 >55% EF 2C: 45.80 >55% EF BiP: 46.10 >55% Mitral Valve MV Pk E: 0.57 E'Lateral: 8.01 E'Medial: 7.37 E/E' Med: 7.70 E/E' Lat: 7.10 Aortic Valve AoV Pk Rai: 1.49 AoV Mn Rai: 0.99 AoV VTI: 0.26 AoV Pk Grad: 9.00 Aov Mn Grad: 4.00 MADDY Cont.VTI: 2.24 LVOT LVOT Pk Rai: 0.62 LVOT Mn Rai: 0.42 LVOT VTI: 0.11 LVOT Pk Grad: 2.00 LVOT Mn Grad: 1.00 LVOT Diam: 2.60 LVOT Area: 5.31 Diastolic Function MV Pk E: 0.57 E'Medial: 7.37 E/E' Med: 7.70 E' Laterial: 8.01 E/E' Lat: 7.10 Right Ventricle TAPSE (mm): 15.80 TVS' Rai: 8.81 Tricuspid Valve TR Pk Rai: 2.65 TR Pk Grad: 28.00 RA Press: 3.00 RVSP: 31.00 Great Vessels Aorta Sinus of Valsalva: 3.30 2.0-3.5 cm Ao Asc: 3.60 2.1-3.4 cm Ao Arch: 3.30 Pulmonary Valve PV Pk Rai: 0.78 Peak PV Grad: 2.00 Updated in Other Vendor System with Status of Final Cade Yanez MD electronically signed on 12/26/2024 12:06:14 PM with status of Final
[2024-12-26 07:32] LABS: Hematocrit 28.3 % (42.0-52.0); Hemoglobin 8.4 g/dl (14.0-18.0); Mean Corpuscular HGB Conc 29.7 g/dl (31.0-36.0); Mean Corpuscular Hemoglobin 27.7 pg (27.0-33.0); Mean Corpuscular Volume 93.4 fL (80.0-98.0); NRBC Abs Auto 0.000 X10*3/uL (0.0-0.012); NRBC Pct Auto 0.0 /100WBC (0.0-0.2); Platelet Count 244 X10*3/uL (160-400); Red Blood Count 3.03 X10*6/uL (4.60-5.80); White Blood Count 6.9 X10*3/uL (4.8-10.8)
[2024-12-26 07:51] LABS: Anion Gap 12 (12-20); Blood Urea Nitrogen 13 mg/dL (9-16); Calcium 8.5 mg/dL (8.4-10.2); Carbon Dioxide 27 mmol/L (22-29); Chloride 110 mmol/L (96-108); Creatinine Clr Calc Pharmacy 103.3; Estimated Glomerular Filt Rate > 60; Magnesium 2.2 mg/dL (1.6-2.6); Potassium 3.5 mmol/L (3.3-5.1); Sodium 145 mmol/L (135-145)
[2024-12-26] MEDS: Potassium Chloride ER 20 MEQ TAB.ER.PRT PO (08:13)
[2024-12-26] MEDS: Metoprolol Succinate ER 25 MG TAB.ER.24H PO (08:13)
[2024-12-26] MEDS: Aspirin Enteric Coated 81 MG TABLET.DR PO (08:14)
[2024-12-26 08:20] LABS: Folate 13.7 ng/mL (> or = 4.0); Vitamin B12 200 pg/mL (200-900)
--- NOTE | 2024-12-26 08:33 | HO.PM.IMPN ---
Subjective Subjective Date of Service: 12/26/24 Interval History: left sided weakness improved Physical Exam Exam: Exam: General: AO X 3, no acute distress Resp: CTA bilateral, no accessory muscles used CVS: S1,S2,RRR GI: soft, non tender, non distended Neuro: motor grossly intact, alert Psych: appropriate affect, appropriate insight Vital Signs: Vital Signs: Last Vital Signs Temp 97.1 F 12/26/24 07:55 Pulse 95 12/26/24 08:13 Resp 13 12/26/24 07:55 BP 124/61 12/26/24 08:21 Pulse Ox 98 12/26/24 07:55 O2 Del Method Room Air 12/26/24 07:55 BMI result Body Mass Index 38.0 Objective Data Active Medications Acetaminophen (Acetaminophen 325 Mg Tablet) 650 mg PO Q6H PRN PRN Reason: Pain, Mild 1-3,fever,headache Albuterol/Ipratropium (Albuterol/Iprat 2.5/0.5mg 3 Ml Ampul.Neb) 3 ml INHALE Q4H PRN PRN Reason: Shortness of Breath/Wheezing Aspirin (Aspirin Enteric Coated 81 Mg Tablet.Dr) 81 mg PO DAILY [facility] Last Admin: 12/26/24 08:14 Dose: 81 mg Documented By: MARIBETH Atorvastatin Calcium (Atorvastatin Calcium 20 Mg Tablet) 20 mg PO DAILY [facility] Last Admin: 12/26/24 08:14 Dose: 20 mg Documented By: MARIBETH Bupropion HCl (Bupropion Hcl Xl 300 Mg Tab.Er.24h) 300 mg PO DAILY PRN PRN Reason: Seasonal Depression Bupropion HCl (Bupropion Hcl Xl 150 Mg Tab.Er.24h) 150 mg PO DAILY PRN PRN Reason: Seasonal Depression Calcium Carbonate (Calcium Carbonate 750 Mg Tab.Chew) 750 mg PO Q4H PRN PRN Reason: Heartburn Enoxaparin Sodium (Enoxaparin Sodium 40 Mg/0.4 Ml Syringe) 40 mg SUBCUT Q24H [facility] Fluoxetine HCl (Fluoxetine Hcl 20 Mg Capsule) 80 mg PO DAILY [facility] Last Admin: 12/26/24 08:13 Dose: 80 mg Documented By: MARIBETH Magnesium Hydroxide (Milk Of Magnesia 30 Ml Oral.Susp) 30 ml PO DAILY PRN PRN Reason: Constipation Melatonin (Melatonin 3 Mg Tablet) 6 mg PO BEDTIME PRN PRN Reason: Insomnia Metoprolol Succinate (Metoprolol Succinate Er 25 Mg Tab.Er.24h) 25 mg PO DAILY [facility]; Protocol Last Admin: 12/26/24 08:13 Dose: 25 mg Documented By: MARIBETH Multivitamins/Vitamin C (Multivitamin Tablet) 1 tab PO BEDTIME [facility] Ondansetron HCl (Ondansetron Hcl 4 Mg/2 Ml Vial) 4 mg IVPUSH Q8H PRN PRN Reason: Nausea and Vomiting Pantoprazole Sodium (Pantoprazole Sodium 40 Mg/10 Ml Vial) 40 mg IVPUSH DAILY@0630 [facility] Last Admin: 12/26/24 05:44 Dose: 40 mg Documented By: CATERINA Polyethylene Glycol (Polyethylene Glycol 3350 17 Gm Powd.Pack) 17 gm PO DAILY PRN PRN Reason: Constipation Potassium Chloride (Potassium Chloride Er 20 Meq Tab.Er.Prt) 20 meq PO DAILY [facility] Last Admin: 12/26/24 08:13 Dose: 20 meq Documented By: MARIBETH Prednisone (Prednisone 10 Mg Tablet) 10 mg PO DAILY [facility]; Taper Stop: 01/02/25 08:59 Last Admin: 12/26/24 08:14 Dose: 10 mg Documented By: MARIBETH Senna (Sennosides 8.6 Mg Tablet) 17.2 mg PO BEDTIME [facility] Sodium Chloride (0.9 % Sodium Chloride Flush 3 Ml Syringe) 3 ml IVFLUSH QSHIFT [facility] Last Admin: 12/26/24 01:07 Dose: 3 ml Documented By: CATERINA Tamsulosin HCl (Tamsulosin Hcl 0.4 Mg Capsule) 0.8 mg PO DAILY [facility] Last Admin: 12/26/24 08:14 Dose: 0.8 mg Documented By: MARIBETH Torsemide (Torsemide 20 Mg Tablet) 20 mg PO DAILY [facility]; Protocol Last Admin: 12/26/24 08:21 Dose: 20 mg Documented By: MARIBETH Labs 12/26/24 07:17 12/26/24 07:17 Labs: Laboratory Results - last 24 hr 12/25/24 12/25/24 12/26/24 17:56 19:08 01:42 MCV 94.0 MCH 28.8 MCHC 30.6 L RDW 20.9 H Plt Count 238 MPV 8.5 L Immature Gran % (Auto) 0.7 H Neut % (Auto) 79.8 H Lymph % (Auto) 8.2 L [place] % (Auto) 7.7 Eos % (Auto) 3.1 Baso % (Auto) 0.5 Lymph # (Auto) 0.5 L [place] # (Auto) 0.5 Eos # (Auto) 0.2 Baso # (Auto) 0.0 Abs Immat Gran (auto) 0.04 H Absolute Neuts (auto) 4.8 Absolute Nucleated RBC 0.000 Nucleated RBC % (auto) 0.0 PT 11.1 INR 1.0 APTT 27.7 Anion Gap 13 Estim Creat Clear Calc 80.8 Estimated GFR > 60 POC Glucose 119 H Random Glucose 115 Estimat Average Glucose 88 Hemoglobin A1c % 4.7 Calcium 8.7 Magnesium Iron 339 H TIBC 364 % Saturation 93 H Unsat Iron Binding < 25 Troponin I High Sens 5.9 NT-Pro-B Natriuret Pep 1534.1 H Triglycerides 136 Cholesterol 127 LDL Cholesterol, Calc 45 HDL Cholesterol 55 Vitamin B12 Folate TSH 1.30 Urine Color Yellow Urine Appearance Clear Urine pH 7.0 Ur Specific [place] 1.015 Urine Protein Negative Urine Glucose (UA) Negative Urine Ketones Negative Urine Blood Negative Urine Nitrite Negative Ur Leukocyte Esterase Negative 12/26/24 07:17 MCV 93.4 MCH 27.7 MCHC 29.7 L RDW 21.1 H Plt Count 244 MPV 8.8 L Immature Gran % (Auto) Neut % (Auto) Lymph % (Auto) [place] % (Auto) Eos % (Auto) Baso % (Auto) Lymph # (Auto) [place] # (Auto) Eos # (Auto) Baso # (Auto) Abs Immat Gran (auto) Absolute Neuts (auto) Absolute Nucleated RBC 0.000 Nucleated RBC % (auto) 0.0 PT INR APTT Anion Gap 12 Estim Creat Clear Calc 103.3 Estimated GFR > 60 POC Glucose Random Glucose 79 Estimat Average Glucose Hemoglobin A1c % Calcium 8.5 Magnesium 2.2 Iron TIBC % Saturation Unsat Iron Binding Troponin I High Sens NT-Pro-B Natriuret Pep Triglycerides Cholesterol LDL Cholesterol, Calc HDL Cholesterol Vitamin B12 200 Folate 13.7 TSH Urine Color Urine Appearance Urine pH Ur Specific [place] Urine Protein Urine Glucose (UA) Urine Ketones Urine Blood Urine Nitrite Ur Leukocyte Esterase Assessment and Plan (1) Crohn's colitis: Status: Acute Plan 74M PMH crohns, anthony, pvd, cad, bph, hld, mood disorder, obesity, chronic afib s/p watchman presented with left sided weakness Left-sided weakness Rule out TIA/CVA Aspirin, statin MRI, neuro, PT OT Crohn's with chronic blood loss anemia Stable, continue prednisone taper Chronic AFib Status post Watchman Continue metoprolol BPH Flomax ANTHONY CPAP Mood disorder Bupropion and fluoxetine Elevated BNP No evidence of decompensated CHF - lying comfortably flat, no edema Follow up echo DVT prophylaxis-refusing Lovenox Full code reason for continued hospitalization:mri and neuro pending Quality Stroke Does the patient have a stroke diagnosis?: No Reason for No Anti-thrombotic by Day Two: Contraindicated (await stool for occult, recent GIB ) VTE Prior VTE?: No VTE Risk Level:: Medical - moderate - high VTE Device Contraindication: N/A - Device Ordered VTE Drug Contraindication: N/A - Med Ordered
--- NOTE | 2024-12-26 08:39 | PC.NURSE ---
patient a&ox3, rr equal/non labored, neuro currently intact, cardiac care unit nurse- pt noted to currently be in afib on the monitor. denying pain/discomfort. pt also refusing lovenox injection- he states he has a history of crohns as well as GI bleeding and isnt on a blood thinner because of that- Dr. Perez was notified of pt refusal. call fernando within reach, plan of care ongoing.
--- NOTE | 2024-12-26 11:28 | PC.NURSE ---
transport to take patient to MRI
--- NOTE | 2024-12-26 13:25 | PM.DS ---
DS: Providers Provider Date of Service: 12/26/24 Date of admission: 12/25/24 20:09 Date of discharge: 12/26/24 Primary care physician: RADHA Garcia- Consults: 12/25/24 21:18 Consult to Neurology Routine Consulting Provider: [facility] Reason for consultation: TIA, ruling out CVA Has provider been notified: No DS: Diagnosis Discharge Diagnosis (1) Crohn's colitis: Status: Acute DS: Summary Hospital Course Hospital Course: from initial hpi: 74-year-old male with past medical history recent GI bleed with the [id number] - 11/16 requiring 4 units of blood and steroids secondary to Crohn's flare, AFib rate controlled status post Watchman device 2 years prior at [facility], RANULFO, PVD, CAD, BPH, hyperlipidemia, KEVIN, MDD presents to the ED with complaints that he may have had a stroke earlier in the day due to persistent left arm weakness and numbness. Patient is right-handed dominant. Patient was last known well at 13:00. Patient states he was working in his garage puttering around with no heavy lifting or arduous activity. Patient was on his way back to the house to eat lunch and noted the left arm weakness, heaviness with numbness. Patient denied any chest pain, abdominal pain, headache or visual changes. Patient is reporting increasing shortness of breath especially with exertion but also now noted at rest over the last week. Patient had notify his PCP earlier regarding swelling in his legs that had increased and his PCP ordered him to take two torsemide pills daily x3 days and patient scheduled appointment to be seen on . Patient was driven to the emergency department and on arrival did not meet the criteria for TNK and his NIH score was 0 per ED provider. Patient states his left arm numbness has resolved. Patient currently on room air satting 98%. Hemodynamics stable with no evidence of shock or sepsis. Patient remains in AFib rate controlled. Current neuro exam reassuring. Patient denies current use of tobacco, alcohol or marijuana. Workup in the ED included head CT and CTA of the head and neck all negative for acute findings. Patient's H&H remained stable at 8.2 and 26.6. Platelets 238, lipid panel within normal limits. A1c is pending. Troponin 5.9. Patient does have history of elevated BNP and NT-BNP pending. Last echo recorded in patient's chart was 2019 with a normal EF. 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 Patient did not think he had heart failure as he felt heart failure meant that the heart stopped. CHF education started in the ED. Patient does also report that he had a recent colonoscopy and upper endoscopic scope approximately 4 months prior in an outside facility. hospital course: Patient was admitted for left-sided weakness which has resolved. Underwent MRI which was negative for acute CVA. Seen by physical therapy who felt patient was back to his baseline. This is still possibly a TIA and we will continue aspirin and statin. For Crohn's with chronic blood loss anemia remained stable and he will continue prednisone taper. For chronic AFib status post Watchman he was continued on metoprolol. For BPH was continued on Flomax. For RANULFO continue CPAP. For mood disorder continue bupropion fluoxetine. For elevated BNP echocardiogram showed mildly reduced EF with 45-50%. No regional wall motion abnormality. He will continue metoprolol and follow up with Cardiology as outpatient. He had no signs of acute decompensation. Patient is back to baseline and he will be discharged home. Time Attestation Discharge Coordination Time (in mins): 33 Quality: Safe Use of Opioids Does Pt have an Active Cancer Diagnosis on the Problem List?: No Quality: Stroke Does the patient have a stroke diagnosis?: Yes Reason for No Anti-thrombotic at DC: N/A - Med Ordered Reason for No Anticoagulant at DC: Drug treatment not indicated Reason Not Initiating IV-Tpa: Drug treatment not indicated Reason for No Anti-thrombotic by Day Two: N/A - Med Ordered Reason for No Statin at DC: N/A - Med Ordered Physical Exam Exam: Exam: General: AO X 3, no acute distress Resp: CTA bilateral, no accessory muscles used CVS: S1,S2,RRR GI: soft, non tender, non distended Neuro: motor grossly intact, alert Psych: appropriate affect, appropriate insight Vital Signs: Vital Signs: Last Vital Signs Temp 97.9 F 12/26/24 12:25 Pulse 89 12/26/24 12:25 Resp 14 12/26/24 12:25 BP 105/63 12/26/24 12:25 Pulse Ox 97 12/26/24 12:25 O2 Del Method Room Air 12/26/24 12:25 BMI result Body Mass Index 38.0 DS: Data Data Completed and Pending Completed studies during hospitalization [Text1]: Procedures Transfusion of Nonautologous Red Blood Cells into Peripheral Vein, Percutaneous Approach (11/13/24) Labs on day of discharge: Laboratory Results - last 24 hr 12/25/24 12/25/24 12/26/24 17:56 19:08 01:42 WBC 6.1 RBC 2.85 L Hgb 8.2 L Hct 26.8 L MCV 94.0 MCH 28.8 MCHC 30.6 L RDW 20.9 H Plt Count 238 MPV 8.5 L Immature Gran % (Auto) 0.7 H Neut % (Auto) 79.8 H Lymph % (Auto) 8.2 L [place] % (Auto) 7.7 Eos % (Auto) 3.1 Baso % (Auto) 0.5 Lymph # (Auto) 0.5 L [place] # (Auto) 0.5 Eos # (Auto) 0.2 Baso # (Auto) 0.0 Abs Immat Gran (auto) 0.04 H Absolute Neuts (auto) 4.8 Absolute Nucleated RBC 0.000 Nucleated RBC % (auto) 0.0 PT 11.1 INR 1.0 APTT 27.7 Sodium 145 Potassium 4.5 Chloride 108 Carbon Dioxide 29 Anion Gap 13 BUN 17 H Creatinine 1.01 Estim Creat Clear Calc 80.8 Estimated GFR > 60 POC Glucose 119 H Random Glucose 115 Estimat Average Glucose 88 Hemoglobin A1c % 4.7 Calcium 8.7 Magnesium Iron 339 H TIBC 364 % Saturation 93 H Unsat Iron Binding < 25 Troponin I High Sens 5.9 NT-Pro-B Natriuret Pep 1534.1 H Triglycerides 136 Cholesterol 127 LDL Cholesterol, Calc 45 HDL Cholesterol 55 Vitamin B12 Folate TSH 1.30 Urine Color Yellow Urine Appearance Clear Urine pH 7.0 Ur Specific [place] 1.015 Urine Protein Negative Urine Glucose (UA) Negative Urine Ketones Negative Urine Blood Negative Urine Nitrite Negative Ur Leukocyte Esterase Negative 12/26/24 07:17 WBC 6.9 RBC 3.03 L Hgb 8.4 L Hct 28.3 L MCV 93.4 MCH 27.7 MCHC 29.7 L RDW 21.1 H Plt Count 244 MPV 8.8 L Immature Gran % (Auto) Neut % (Auto) Lymph % (Auto) [place] % (Auto) Eos % (Auto) Baso % (Auto) Lymph # (Auto) [place] # (Auto) Eos # (Auto) Baso # (Auto) Abs Immat Gran (auto) Absolute Neuts (auto) Absolute Nucleated RBC 0.000 Nucleated RBC % (auto) 0.0 PT INR APTT Sodium 145 Potassium 3.5 D Chloride 110 H Carbon Dioxide 27 Anion Gap 12 BUN 13 Creatinine 0.79 Estim Creat Clear Calc 103.3 Estimated GFR > 60 POC Glucose Random Glucose 79 Estimat Average Glucose Hemoglobin A1c % Calcium 8.5 Magnesium 2.2 Iron TIBC % Saturation Unsat Iron Binding Troponin I High Sens NT-Pro-B Natriuret Pep Triglycerides Cholesterol LDL Cholesterol, Calc HDL Cholesterol Vitamin B12 200 Folate 13.7 TSH Urine Color Urine Appearance Urine pH Ur Specific [place] Urine Protein Urine Glucose (UA) Urine Ketones Urine Blood Urine Nitrite Ur Leukocyte Esterase Discharge Plan Discharge Anticipated Discharge Date/Time: 12/26/24 13:23 Patient Disposition: Home, Self-Care Discharge Diagnosis: left sided weakness, ?TIA Referrals: Emile Chamorro, CAP MACHINE OPERATOR-BC [Primary Care Provider, Internal Medicine] - 1 Week Discharge Medications: Continued tamsulosin 0.4 mg capsule 0.8 mg PO DAILY 90 Days Qty: 180 1RF Patient Comments: Takes with food multivitamin Tablet 1 tab PO BEDTIME Patient Comments: Takes with food ferrous sulfate [Iron (ferrous sulfate)] 325 mg (65 mg iron) Tablet 325 mg PO DAILY cholecalciferol (vitamin D3) 25 mcg (1,000 unit) Tablet 25 mcg PO DAILY@1800 Patient Comments: Takes with food calcium carbonate [Calcium 600] 600 mg calcium (1,500 mg) Tablet 600 mg PO BEDTIME bupropion HCl 300 mg tablet extended release 24 hr 300 mg PO DAILY PRN (Reason: Seasonal Depression) triamcinolone acetonide 0.1 % cream 1 appl topical BID PRN (Reason: Eczema) potassium chloride 20 mEq tablet extended release 20 meq PO DAILY prednisone 10 mg tablet See Taper PO DAILY Taper: Prednisone 10 mg daily for 7 Days and 0 Hour Rx Instructions: 10 mg orally; 4 tabs po daily x 7 days;3 tabs po daily x 7 days;2 tabs po daily x 7 days;1 tab daily x 7 days rosuvastatin 5 mg tablet 5 mg PO DAILY Patient Comments: Takes with food fluoxetine 40 mg capsule 80 mg PO DAILY Patient Comments: Takes with food metoprolol succinate 25 mg tablet extended release 24 hr 25 mg PO DAILY torsemide 10 mg tablet 20 mg PO DAILY aspirin 81 mg tablet,delayed release (DR/EC) 81 mg PO DAILY bupropion HCl 150 mg tablet extended release 24 hr 150 mg PO DAILY PRN (Reason: Seasonal Depression) Discharge Orders: Discharge Order (Routine); Ordered 12/26/24 Ordered By: Troy Perez Diet: Advance to usual diet Activity on Discharge: As tolerated Stand Alone Forms: Patient Portal Discharge page Print Language: Malay Care Plan Goals: prevent strokes Health Concerns: left sided weakness Plan of Treatment: cotinue asa and statin Assessment: see above
--- NOTE | 2024-12-26 14:33 | MHC.STROKE ---
Met with patient prior to discharge home. Pt awake, alert and oriented x 3. Ambulatory to BR, gait steady. Moving all extremities, speech clear. No focal deficits noted. Stroke Education reviewed with patient. All questions answered. Medical hx reviewed, medications discussed. Diet, activity, social hx discussed. Pt is active and is able to perform ADL's without difficulty. Hx of Afib and patient has Watchman device. MRI negative. Pt agreeable to DC home. DC paperwork reviewed by primary RN
--- NOTE | 2024-12-26 14:35 | MHC.CM.PN ---
PT REPORTS HE LIVES WITH HIS AND IS INDEPENDENT WITH CARE HE HAS NO DME / SERVICES COPY OF HCP REQUESTED PCP: MARIAH DSOUZA OBS NOTICE DELIVERED PT WILL DC HOME TODAY VIA PRIVATE TRANSPORT
== END 2024-12-26 13:53 | disposition home or self-care (01) ==
LOC: HO.ED 19:29 → HO.EDOVER 20:14
PROVIDERS: Nurse Practitioner Family; Admitting Provider Internal Medicine; Emergency Provider Emergency Medicine; PCP Nurse Practitioner Family; Visit Provider Internal Medicine
DX: G45.9 Transient cerebral ischemic attack, unspecified (principal); K50.10 Crohn's disease of large intestine without complications; R20.0 Anesthesia of skin; R53.1 Weakness; I48.91 Unspecified atrial fibrillation; E78.5 Hyperlipidemia, unspecified; I25.10 Atherosclerotic heart disease of native coronary artery without angina pectoris; D50.0 Iron deficiency anemia secondary to blood loss (chronic); F32.9 Major depressive disorder, single episode, unspecified; N40.0 Benign prostatic hyperplasia without lower urinary tract symptoms; I10 Essential (primary) hypertension; I87.2 Venous insufficiency (chronic) (peripheral); Z95.818 Presence of other cardiac implants and grafts; Z79.899 Other long term (current) drug therapy
CPT/HCPCS: 36415; 70450; 70496; 70498; 70551; 80048; 80061; 81003; 82607; 82746; 82947; 83036; 83540; 83735; 83880; 84443; 84484; 85025; 85027; 85610; 85730; 93005; 93306; 96374; 97161; 97165; 99222; 99285; J2470; Q9957; Q9967

== ENCOUNTER → 2024-12-25 17:59 | Outpatient (BNV) | payer MEDICARE, OTHER, SELFPAY | PROVIDERS: Admitting Provider Internal Medicine; Emergency Provider Emergency Medicine; PCP Nurse Practitioner Family; Visit Provider Internal Medicine | DX: I48.91 Unspecified atrial fibrillation (principal) | CPT/HCPCS: 93010 ==

== ENCOUNTER → 2024-12-25 17:59 | Outpatient (BNV) | payer MEDICARE, OTHER, SELFPAY | PROVIDERS: Emergency Provider Emergency Medicine; PCP Nurse Practitioner Family; Visit Provider Radiology Diagnostic Radiology | DX: R53.1 Weakness (principal); R20.0 Anesthesia of skin | CPT/HCPCS: 70450; 70496; 70498 ==

== ENCOUNTER 2024-12-25 20:09 | Outpatient (BNV) | payer MEDICARE, OTHER, SELFPAY | END 2024-12-26 11:32 | PROVIDERS: Admitting Provider Internal Medicine; Emergency Provider Emergency Medicine; PCP Nurse Practitioner Family; Visit Provider Radiology Diagnostic Radiology | DX: R53.1 Weakness (principal) | CPT/HCPCS: 70551 ==

== ENCOUNTER 2024-12-25 20:09 | Outpatient (BNV) | payer MEDICARE, OTHER, SELFPAY | END 2024-12-26 07:00 | PROVIDERS: Admitting Provider Internal Medicine; Emergency Provider Emergency Medicine; PCP Nurse Practitioner Family; Visit Provider Internal Medicine | DX: I48.91 Unspecified atrial fibrillation (principal) | CPT/HCPCS: 93306 ==

== ENCOUNTER → 2024-12-25 20:09 | Outpatient (BNV) | payer MEDICARE, OTHER, SELFPAY | PROVIDERS: Admitting Provider Internal Medicine; Emergency Provider Emergency Medicine; PCP Nurse Practitioner Family; Visit Provider Nurse Practitioner Family | DX: K50.10 Crohn's disease of large intestine without complications (principal); G45.9 Transient cerebral ischemic attack, unspecified | CPT/HCPCS: 99223; 99239; 99499 ==

== ENCOUNTER 2025-01-08 11:33 | Outpatient (AMB) | payer MEDICARE, OTHER, SELFPAY ==
--- OUTSIDE RECORDS SUMMARY | 2025-01-05 12:40 | XMS_ITS | Encounter Summary ---
Author Organization [facility] Address [address] [facility] [address] [place] [address] Care Team Providers Care Business Transformation Manager Name Role Phone Corbin Thomas MD Unavailable Emile Chamorro Unavailable [phone] Steven Guan Unavailable No Pcp, Per Patient Primary Care Provider Steve Kelsey MD Unavailable Encounter Details Date Type Department Care Team (Late st Contact Info) Description 01/05/2025 12:40 PM EDT Office Visit [facility] [address] [place] [address] Corbin Thomas MD [address] [place] [address] Permanent atrial fibrillation (Primary Dx); Presence of Watchman left atrial appendage closure device; Venous insufficiency; Coronary artery disease involving quinault coronary artery of quinault heart without angina pectoris; Mixed hyperlipidemia; Localized edema Social History Tobacco Use Types Packs/Day Years Used Date Smoking Tobacco: Never Smokeless Tobacco: Never Sex and Gender Information Value Date Recorded Sex Assigned at Not on file Legal Sex Male 12:50 AM EST Gender Identity Not on file Sexual Orientation Not on file documented as of this encounter Last Filed Vital Signs Vital Sign Reading Time Taken Comments Blood Pressure 104/62 01/05/2025 12:37 PM EDT Pulse 97 01/05/2025 12:37 PM EDT Temperature - - Respiratory Rate - - Oxygen Saturation 95% 01/05/2025 12:37 PM EDT Inhaled Oxygen Concentration - - Weight 112.5 kg (248 lb) 01/05/2025 12:37 PM EDT Height 177.8 cm (5' 10 ) 01/05/2025 12:37 PM EDT Body Mass Index 35.58 01/05/2025 12:37 PM EDT documented in this encounter Patient Instructions * Patient Instructions* Corbin Thomas MD - 01/05/2025 12:40 PM EDT INCREASE Torsemide to 20 mg ONCE daily documented in this encounter Progress Notes * Corbin Thomas MD - 01/05/2025 12:40 PM EDT Images from the original note were not included. 01/05/2025 PCP: No PCP, Per Patient Jonah Bond returns today for continued evaluation and management of AFib and CAD HPI: Reji was hospitalized last month in [place] with left arm weakness and numbness that lasted about 1 day. He had no other neurologic symptoms. He had a normal head CT, head CTA and his brain MRI showed no evidence for stroke. He was discharged without seeing a neurologist. He has had no recurrent potential stroke symptoms since then. He has lost 17 pounds since July but does notice slightly more edema and some fluid weeping from hislegs at times. His swelling is also now a bit worse since he is on prednisone for colitis flare. PAST MEDICAL HISTORY: Minimal CAD seen on cath Feb 2014 Atrial fibrillation incidentally diagnosed 03-17-22. s/p Watchman implant 10-20-23 Hyperlipidemia Hypertension LAFB Crohn's colitis RANULFO on CPAP BPH Depression Restless legs C. Diff Back pain s/p lumbar spine surgery Apr 2014 GERD Lower back pain CVI s/p right GSV ablation 04-07-18 and left GSV ablation 06-09-18. Repeat ablation right GSV 01-04-20 CARDIAC TESTING: NUCLEAR 03-10-14 [place]: Lexiscan. No CP. Inferolateral and apical ischemia. EF 55% CATH 03-13-14: EF 50%. Normal LM. 10% prox LAD. Normal ramus, LCx and RCA ECHO 11-22-15: EF 50-55%. Mod LAE. Normal RV, valves and PASP. Small ASD. Asc aorta 37 mm ECHO 12-03-16: EF 60%. Normal RV. Mild MR. No . PASP 31 mmHg. Asc aorta 37 mm VENOUS 03-11-18: No DVT. Bilateral deep vein reflux. Tortuous right GSV has reflux. Left GSV reflux. Right SSV reflux. NUCLEAR 08-03-19 [place]: Normal perfusion Mar 2022: 100% AFib (60-137 bpm, average 85 bpm). Rare PVCs. ECHO 12-25-24: Mild LVH. EF 45-50%. Mild RV HK. Mild LAE. + PFO. Mild MR. No . 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 . ROS: Respiratory: denies cough. GI: denies blood in stool. Musculoskeletal: denies myalgias. Peripheral vascular: denies claudication. 01/05/2025 12:37 PM 08/22/2024 2:40 PM 11/30/2023 12:43 PM 05/28/2023 3:13 PM 10/02/2022 12:51 PM 06/05/2022 1:19 PM 03/24/2022 2:33 PM Vitals Systolic 104 103 100 111 106 124 107 Diastolic 62 64 60 70 66 70 70 Pulse 97 72 76 71 72 83 87 Height (in) 1.778 m (5' 10 ) 1.778 m (5' 10 ) 1.778 m (5' 10 ) 1.778 m (5' 10 ) 1.778 m (5' 10 ) Weight (lb) 248 265 267 268 263 246 246 SpO2 95 % 96 % 98 % 98 % 97 % 99 % 95 % BMI 35.58 kg/m2 38.02 kg/m2 38.31 kg/m2 38.45 kg/m2 37.74 kg/m2 35.3 kg/m2 35.3 kg/m2 BSA (m2) 2.36 m2 2.44 m2 2.45 m2 2.45 m2 2.43 m2 2.35 m2 2.35 m2 Visit Report Report Report Report Report Report Report Report PHYSICAL EXAM: Vitals: 01/05/25 1237 BP: 104/62 Pulse: 97 SpO2: 95% Weight: 112.5 kg (248 lb) Height: 1.778 m (5' 10 ) GENERAL APPEARANCE: Alert, well-nourished. HEAD: Normocephalic. EYES: Anicteric. ENT: Moist mucous membranes. NECK: Mild JVD, no carotid bruits. LYMPH: No cervical lymphadenopathy. LUNGS: Clear to auscultation. CARDIAC: Irregularly, irregular, normal S1, normal S2, no murmur. CHEST: No chest wall tenderness. EXTREMITIES: 1+ edema R > L PERIPHERAL PULSES: 2+ radial pulses bilaterally. NEUROLOGIC: Normal strength and sensation bilaterally. PSYCH: Alert and oriented x3. ECG 01/05/2025: Atrial fibrillation. 97 bpm. Leftward axis. Nonspecific ST-T changes. QTc 444 IMPRESSION: Reji was hospitalized last month with left arm weakness and numbness that lasted one day. Despite the prolonged duration of the symptoms, a brain MRI showed no evidence for stroke. He also had a negative CTA. Therefore it is unclear if the symptoms were due to a central neurologic eventor more likely could have been due to a peripheral neuropathy. I have suggested that he see a neurologist for further evaluation. If he has any recurrent neurologic symptoms or if last month's event was felt to be due to a TIA, an elective ELIANA to assess his Watchman implant for any device associated thrombus would then be appropriate. He knows to call 911 for any recurrent, potential stroke symptoms. He has lost weight but has recently noticed an increase in his edema with occasional weeping from his legs. He is currently on prednisone to treat a colitis flare which will definitely lead to volumeretention as well. I have therefore advised him to double his standing torsemide to 20 mg once daily. Medications at end of visit: Current Outpatient Medications Medication Instructions aspirin 81 mg, Daily buPROPion XL (WELLBUTRIN XL) 300 mg, Every morning calcium carbonate 500 mg calcium (1,250 mg) tablet 1 tablet, Daily cholecalciferol (vitamin D3) 2,000 Units, Daily RT FLUoxetine (PROZAC) 40 mg, Daily urov-IJ-ddl-krf-FMJ-AOTV-be-mv 1.5 mg iron- 8.73 mg capsule,IR - delay rel,biphase Daily RT mesalamine (Lialda) 1.2 gram EC tablet 6 tablets, Daily with breakfast metoprolol succinate XL (TOPROL-XL) 25 mg, oral, Daily, Do not crush or chew pediatric multivitamin no.28 (CHILD MULTIVITAMINS ORAL) Daily RT potassium chloride CR (K-Tab) 20 mEq ER tablet 20 mEq, Daily predniSONE (DELTASONE) 40 mg, Daily rosuvastatin (CRESTOR) 5 mg, oral, Daily tamsulosin (Flomax) 0.4 mg 24 hr capsule tamsulosin 0.4 mg capsule torsemide (DEMADEX) 20 mg, oral, Daily Follow up in 1 month (on 02/06/2025). I spent > 30 minutes today preparing for this visit, reviewing medications and tests, conductingface to face encounter with the patient, documenting clinical information in the electronic medicalrecord and coordinating patient's care. documented in this encounter Plan of Treatment Upcoming Encounters Date Type Department Care Team (Late st Contact Info) Description 02/06/2025 2:20 PM EST Office Visit [facility] [address] [place] [address] Corbin Thomas MD [address] [place] [address] documented as of this encounter Procedures Procedure Name Priority Date/Time Associated Diagnosis Comments ECG 12-LEAD Routine 01/05/2025 12:46 PM EDT Permanent atrial fibrillation documented in this encounter Results * ECG 12 lead (Back Office) (01/05/2025 12:46 PM EDT) us Corbin Thomas MD ECG ORDERABLES Final Res ult documented in this encounter Visit Diagnoses Diagnosis Permanent atrial fibrillation- Primary Atrial fibrillation Presence of Watchman left atrial appendage closure device Venous insufficiency Unspecified venous (peripheral) insufficiency Coronary artery disease involving quinault coronary artery of quinault heart without angina pectoris Mixed hyperlipidemia Localized edema Edema documented in this encounter Care Teams Business Transformation Manager Relationship Specialty Start Date End Date No Pcp, Per Patient [place] PCP - General 05/28/23 Corbin Thomas MD [address] [place] [address] Rack Production Worker Cardiology 03/24/22 Emile Chamorro [address] [place] [address] 03/24/22 Steven Guan [address] [place] [address] 06/05/22 Steve Escamilla MD [address] [place] [address] Referring Physician Set Up Technician 11/30/23 documented as of this encounter
--- OUTSIDE RECORDS SUMMARY | 2025-01-08 11:36 | XMS_ITS | Encounter Summary ---
Author Organization [facility] Address [address] [facility] [address] [place] [address] Care Team Providers Care Judicial Clerk Name Role Phone Corbin Thomas MD Unavailable Emile Chamorro Unavailable [phone] Steven Guan Unavailable No Pcp, Per Patient Primary Care Provider Steve Kelsey MD Unavailable Encounter Details Date Type Department Care Team (Latest Contact Info) Description 01/05/2025 Travel Social History Tobacco Use Types Packs/Day Years [...] Description 02/06/2025 2:20 PM EST Office Visit [facility] [address] [place] [address] Corbin Thomas MD [address] [place] [address] documented as of this encounter Visit Diagnoses Not on filedocumented in this encounter Care Teams Judicial Clerk Relationship Specialty Start Date End Date No Pcp, Per Patient [place] PCP - General 05/28/23 Corbin Thomas MD [address] [place] [address] Stave Jointer Cardiology 03/24/22 Emile Chamorro [facility] [address] [facility] [place] [address] 03/24/22 Steven Guan [address] [place] [address] 06/05/22 Steve Escamilla MD [address] [place] [address] Referring Physician Strategic Marketing Specialist 11/30/23 documented as of this encounter
--- OUTSIDE RECORDS SUMMARY | 2025-01-08 11:36 | XMS_ITS | Clinical Summary ---
Author Organization [facility] Address 800 [facility] [address] [place] [address] Care Team Providers Care Retail Pos Specialist Name Role Phone Corbin Thomas MD Unavailable Emile Chamorro Unavailable [phone] Steven Guan Unavailable No Pcp, Per [...] hr capsule tamsulosin 0.4 mg capsule Active FLUoxetine (PROzac) 40 mg capsule Take 40 mg by mouth in the morning. Active cholecalciferol, vitamin D3, 10 mcg (400 unit) capsule Take 2,000 Units by mouth in the morning. Active uhrq-XT-ddt-epa- QEC-JVBO-xp-mv 1.5 mg iron- 8.73 mg capsule,IR - delay rel,biphase Take by mouth in the morning. Active pediatric multivitamin no.28 (CHILD MULTIVITAMINS ORAL) [...] 5 mg tabletIndication s:Coronary artery disease involving chemehuevi coronary artery of chemehuevi heart without angina pectoris TAKE 1 TABLET(5 MG) BY MOUTH DAILY 90 tablet 3 08/29/19 25 Active predniSONE (Deltasone) 20 mg tablet Take 40 mg by mouth once daily. 06/01/19 25 Active potassium chloride CR (K-Tab) 20 mEq ER tablet Take 20 mEq by mouth once daily. 12/22/19 25 Active torsemide (Demadex) 20 mg tabletIndication s:Permanent atrial fibrillation,Pre sence of Watchman left atrial appendage closure device,Venous insufficiency,Co ronary artery disease involving chemehuevi coronary artery of chemehuevi heart without angina pectoris,Mixed hyperlipidemia,L ocalized edema Take 1 tablet (20 mg) by mouth once daily. 90 tablet 3 01/06/20 25 Active hydroCHLOROthiaz watson (HYDRODiuril) 25 mg tablet Take 25 mg by mouth in the morning. 2021 Discontinued rOPINIRole (Requip) 0.5 mg tablet Take 0.5 mg by mouth in the morning and 0.5 mg in the evening. 2024 Discontinued L. acidophilus/Bifi d. animalis (DAILY PROBIOTIC ORAL) Take by mouth. 2024 Discontinued(E ntered in Error) torsemide (Demadex) 10 mg tabletIndication s:Coronary artery disease involving chemehuevi coronary artery of chemehuevi heart without angina pectoris,Left anterior fascicular block,Mixed hyperlipidemia,V enous insufficiency,Pe rmanent atrial fibrillation TAKE 1 TABLET(10 MG) BY MOUTH DAILY 90 tablet 3 10/24/19 25 2024 Discontinued Active Problems Patient Care Coordination No te Formatting of this note migh t be different from the original. 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 Coronary artery disease invo lving chemehuevi coronary artery of chemehuevi heart without angina pectoris 07/03/2021 Mixed hyperlipidemia 07/03/2021 Venous insufficiency 07/03/2021 Encounters Date Type Department Care Team Description 01/05/2025 12:40 PM EDT [facility] [address] [address] Corbin Thomas MD Permanent atrial fibrillation (Primary Dx); Presence of Watchman left atrial appendage closure device; Venous insufficiency; Coronary artery disease involving chemehuevi coronary artery of chemehuevi heart without angina pectoris; Mixed hyperlipidemia; Localized edema 01/05/2025 Travel 12/26/2024 Telephone [facility] [address] [address] Corbin Thomas MD hospital f/u 12/04/2024 [facility]phone [facility] [address] [address] Malissa Ardon, RN Labs Only 10/21/2024 Refill [facility] [address] [address] Corbin Thomas MD Coronary artery disease involving chemehuevi coronary artery of chemehuevi heart without angina pectoris ; Left anterior fascicular block; Mixed hyperlipidemia ; Venous insufficiency; Permanent atrial fibrillation (Multi-HCC) from Last 3 Months Family History Medical History Relation Name Comments Atrial fibrillation Brother Coronary artery disease Father [place] a nd PPM at later age Relation [...] Pulse 97 01/05/2025 12:37 PM EDT Temperature 36.6 C (97.9 F) 04/19/2018 2:30 PM EST Respiratory Rate - - Oxygen Saturation 95% 01/05/2025 12:37 PM EDT Inhaled Oxygen Concentration - - Weight 112.5 kg (248 lb) 01/05/2025 12:37 PM EDT Height 177.8 cm (5' 10 ) 01/05/2025 12:37 PM EDT Body Mass Index 35.58 01/05/2025 12:37 PM EDT Plan of Treatment Upcoming Encounters Date Type Department Care Team (Late st Contact Info) Description 02/06/2025 2:20 PM EST Office Visit [facility] [address] [place] [phone] Corbin Thomas MD [address] [place] [address] Health Maintenance Due Date Last Done Comments [...] 01/05/2025 12:46 PM EDT Permanent atrial fibrillation from Last 3 Months Results * ECG 12 lead (Back Office) (01/05/2025 12:46 PM EDT) us Corbin Thomas MD ECG ORDERABLES Final Res ult from Last 3 Months Insurance MEDICARE PART A AND B [facility] Care Teams Retail Pos Specialist Relationship Specialty Start Date End Date No Pcp, Per Patient JASON PCP - General 05/28/23 Corbin Thomas MD [address] [place] [address] Web Manager Cardiology 03/24/22 Emile Chamorro [address] [place] [address] 03/24/22 Steven Guan [address] [place] [address] [address] [place] [address] 06/05/22 Steve Escamilla MD [address] [place] [address] Referring Physician Dye Expert 11/30/23
--- OUTSIDE RECORDS SUMMARY | 2025-01-08 11:37 | XMS_ITS | Encounter Summary ---
Author Organization [facility] Address [address] [facility] [address] [place] [address] Care Team Providers Care Head Automatic Sawyer Name Role Phone No Pcp, Per Patient Primary Care Provider Corbin Mcrae MD Unavailable Emile Chamorro Unavailable [phone] Steven Guan Unavailable No Pcp, Per Patient Primary Care Provider Steve Kelsey MD Unavailable Encounter Details Date Type Department Care Team (Late st Contact Info) Description 10/13/2022 Orders Only [facility] [address] [address] Coribn Thomas MD [address] [place] [address] Atrial fibrillation, unspecified type Social History Tobacco [...] 2:20 PM EST [facility] [address] [address] Corbin Thomas MD [address] [place] [address] documented as of this encounter Visit Diagnoses Diagnosis Atrial fibrillation, unspecified type documented in this encounter Care Teams Head Automatic Sawyer Relationship Specialty Start Date End Date No Pcp, Per Patient [place] PCP - General 03/24/22 05/27/23 No Pcp, Per Patient [place] PCP - General 05/28/23 Corbin Thomas MD [address] [place] [address] Vmware Consultant Cardiology 03/24/22 Emile Chamorro [facility] [address] [place] [address] 03/24/22 Steven Guan [address] [place] [address] 06/05/22 Steve Escamilla MD [address] [place] [address] Referring Physician Machine Sander 11/30/23 documented as of this encounter
--- OUTSIDE RECORDS SUMMARY | 2025-01-08 11:37 | XMS_ITS | Encounter Summary ---
Author Organization [facility] Address 800 [facility] [address] [place] [address] Care Team Providers Care Scagliola Mechanic Name Role Phone No Pcp, Per Patient Primary Care Provider Corbin Mcrae MD Unavailable [phone] Emile Chamorro Unavailable [phone] Steven Guan Unavailable No Pcp, Per Patient Primary Care Provider Steve Kelsey MD Unavailable Encounter Details Date Type Department Care Team (Late st Contact Info) Description 10/07/2022 Orders Only [facility] [address] [address] Corbin Thomas MD [address] [place] [address] Atrial fibrillation, unspecified type; 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 Social History Tobacco [...] 2:20 PM EST [facility] Visit [facility] [address] [address] Corbin Thomas MD [address] [place] [address] documented as of this encounter Visit Diagnoses Diagnosis Atrial fibrillation, unspecified type FDC (current) use of anticoagulants Long-term (current) use of anticoagulants documented in this encounter Care Teams Scagliola Mechanic Relationship Specialty Start Date End Date No Pcp, Per Patient [place] PCP - General 03/24/22 05/27/23 No Pcp, Per Patient [place] PCP - General 05/28/23 Corbin Thomas MD [address] [place] [address] Director Of Coding Cardiology 03/24/22 Emile Chamorro [address] [place] [address] 03/24/22 Steven Guan [address] [place] [address] 06/05/22 Steve Escamilla MD [address] [place] [address] Referring Physician Order Make Up Clerk 11/30/23 documented as of this encounter
--- OUTSIDE RECORDS SUMMARY | 2025-01-08 11:37 | XMS_ITS | Encounter Summary ---
Author Organization [facility] Address 800 [facility] [address] [place] [address] Care Team Providers Care Ammonia Print Operator Name Role Phone No Pcp, Per Patient Primary Care Provider Corbin Mcrae MD Unavailable Emile Chamorro Unavailable [phone] Steven Guan Unavailable No Pcp, Per Patient Primary Care Provider Steve Kelsey MD Unavailable Encounter Details Date Type Department Care Team (Late st Contact Info) Description 10/02/2022 Orders Only [address] [address] Corbin Thomas MD [address] [place] [address] Coronary artery disease involving tonto apache coronary artery of tonto apache heart without angina pectoris; Left anterior fascicular [...] 02/06/2025 2:20 PM EST Office Visit Heart [address] [address] Corbin Thomas MD [address] [place] [address] documented as of this encounter Visit Diagnoses Diagnosis Coronary artery disease involving tonto apache coronary artery of tonto apache heart without angina pectoris Left anterior fascicular block Left bundle branch hemiblock Mixed hyperlipidemia Venous insufficiency Unspecified venous (peripheral) insufficiency Permanent atrial fibrillation Atrial fibrillation documented in this encounter Care Teams Ammonia Print Operator Relationship Specialty Start Date End Date No Pcp, Per Patient [place] PCP - General 03/24/22 05/27/23 No Pcp, Per Patient [place] PCP - General 05/28/23 Corbin Thomas MD [address] [place] [address] Apprentice Painter Neckties Cardiology 03/24/22 Emile Chamorro [facility] [address] [address] 03/24/22 Steven Guan [address] [place] [address] 06/05/22 [place] [address] [place] [address] Referring Physician Ui Lead Developer 11/30/23 documented as of this encounter
--- NOTE | 2025-01-08 11:42 | MHC.PC.OV ---
Vital Signs 01/08/25 11:43 Height 5 ft 10 in Weight 250 lb BMI 35.9 BP 110/70 Blood Pressure Location Lt brachial Position Sitting Respiration 16 Pulse 95 Pulse Source Pulse Oximeter Pulse Oximetry (%) 99 Oxygen Delivery Method Room Air Intake Visit Reasons: 6 month follow Gis Manager Required: No Accompanied by: Self / Same As Patient Allergies oatmeal Allergy (Mild, Uncoded 12/25/24 18:24) hives Medication List - Last Reconciled 01/08/25 by RADHA Godfrey- aspirin 81 mg PO DAILY bupropion HCl XL 300 mg PO DAILY PRN bupropion HCl XL 150 mg PO DAILY PRN calcium carbonate (Calcium 600) 600 mg PO BEDTIME cholecalciferol (vitamin D3) 25 mcg PO DAILY@1800 ferrous sulfate (Iron (ferrous sulfate)) 325 mg PO DAILY fluoxetine 80 mg PO DAILY metoprolol succinate ER 25 mg PO DAILY multivitamin 1 tab PO BEDTIME potassium chloride ER 20 mEq PO DAILY prednisone See Taper mg PO DAILY rosuvastatin 5 mg PO DAILY tamsulosin 0.8 mg (2 x 0.4 mg) PO DAILY 90 days torsemide 20 mg PO DAILY triamcinolone acetonide 0.1% 1 appl topical BID PRN Tobacco use date assessed: 01/08/25 Fall risk assessment: No Falls in past year Last assessed Fall Risk: 01/08/25 Dental Screening Dental Screen Date: 01/08/25 Did you have a dental visit in the last 12 months?: No Did you have a dental problem in the last 6 months where you did not have access to dental care?: No HPI 6 month follow HPI Details Chief Complaint The patient presents for a follow-up visit after experiencing symptoms suggestive of a transient ischemic attack. History of Present Illness The patient is a 74-year-old male presenting with a follow-up visit after experiencing symptoms suggestive of a transient ischemic attack. He was evaluated in the emergency room on December 25, 2024, due to persistent left arm weakness and numbness, raising concerns of a stroke. He denied any chest pain, abdominal pain, headache, or visual changes at that time but reported increased shortness of breath, especially with exertion. The patient has a history of atrial fibrillation for which he underwent a Watchman procedure and sees a biomaterials engineer regularly. He also has a significant history of Crohn's disease, which has led to continuous rectal bleeding requiring blood transfusions. He is under the care of a quarrying manager and is currently on a prednisone taper to manage his Crohn's disease. Recent imaging, including CT and CTA of the head and neck, showed no acute findings, and his hemoglobin and hematocrit levels remain stable. The patient reports improvement in symptoms, with reduced swelling in his lower extremities after increasing his diuretic dosage. He continues to experience some shortness of breath on exertion but denies any new or worsening symptoms. NOTE: did report soem dizziness upon standing, Hx of orthostatic hypotension. Highly recommended getting up slowly and sipping fluids. Social History Health Maintenance Review of Systems - Neurological: Reports left arm weakness and numbness. Denies headache or visual changes. - Cardiovascular: Reports dyspnea on exertion. Denies chest pain. - Gastrointestinal: Reports rectal bleeding. Denies abdominal pain. Physical Exam General: Cooperative, healthy appearing, comfortable, no acute distress and well developed Orientation: Patient oriented x3 Limitations: No limitations Head: Normal to inspection Ears: Hearing grossly normal bilaterally Nose: Normal external nose present Face and sinus: Normal facial exam Eyes: Appearance normal, both eyes and all related structures Neck: Normal visual inspection and Yes full ROM Respiratory: Normal respiratory effort and able to speak in complete sentences. Clear to auscultation bilaterally Cardiovascular: Irregularly irregular heart rhythm. Normal S1 and S2 GI: Normal to inspection. Soft to palpation and nontender Skin: No rashes or lesions noted Neuro: Patient oriented x3 Extremities: +1 pitting edema to bilaterally lower extremities, right greater than the left Results - Imaging: CT and CTA of the head and neck negative for acute findings. - Labs: Hemoglobin and hematocrit levels stable. Plan Patient was informed and verbally consented to the use of an ambient scribe for clinic note documentation during this visit. 1. Transient Ischemic Attack (Tia) The patient is to continue aspirin and statin therapy as part of the management plan for the suspected transient ischemic attack. 2. Atrial Fibrillation The patient is under regular cardiology care and has undergone a Watchman procedure to manage atrial fibrillation. 3. Crohn's Disease The patient is on a prednisone taper to manage Crohn's disease and is regularly monitored by a quarrying manager. 4. Rectal Bleeding The patient has experienced continuous rectal bleeding requiring blood transfusions and is under the care of a quarrying manager. 5. Edema The patient has been advised to continue the increased dosage of diuretics to manage edema, with plans to monitor electrolytes and CBC. 6. Shortness Of Breath The patient reports improvement in shortness of breath with exertion and will continue monitoring symptoms. Discussion Notes During the visit, we discussed the continuation of aspirin and statin therapy for the suspected transient ischemic attack. The patient is advised to maintain regular follow-ups with his biomaterials engineer for atrial fibrillation management. We also reviewed the prednisone taper for Crohn's disease and the importance of monitoring symptoms of rectal bleeding. The patient is instructed to continue the increased diuretic dosage for edema management and to report any changes in symptoms. Patient Instructions - Continue taking aspirin and statin as prescribed. - Follow up with your biomaterials engineer as scheduled. - Continue prednisone taper for Crohn's disease. - Monitor for any signs of rectal bleeding and report if symptoms worsen. - Maintain the increased diuretic dosage and monitor for changes in swelling. [facility] Medical History (Updated 01/08/25 @ 12:10 [facility] A-fib Crohn's colitis Presence of Watchman left atrial appendage closure device RANULFO (obstructive sleep apnea) BPH (benign prostatic hyperplasia) New onset a-fib Foreign body of finger of right hand Left anterior fascicular block (LAFB) Iron deficiency Depression Vertebral compression fracture PLMD (periodic limb movement disorder) PVD (peripheral vascular disease) Dyslipidemia HTN (hypertension) Crohn's disease Venous insufficiency of both lower extremities Surgical History History of cholecystectomy Status post endovenous radiofrequency ablation (RFA) of saphenous vein Family History Father Cancer of prostate Mother Anxiety Sister Breast cancer Sister Nephritis Sister No problems noted. Sister No problems noted. Sister No problems noted. Daughter Substance use disorder Mental health disorder Daughter No problems noted. Daughter No problems noted. Brother No problems noted. Brother No problems noted. Brother Epilepsy Paternal Grandfather Substance use disorder Social History Household Members: Family Housing: House Do you presently have visiting nurse or other home services: No Alcohol intake: never Patient Tobacco Use Status: Former Tobacco user Years Smoked: 50 years ago e-Cigarette/Vaping Use: Never Used Second Hand Smoke Exposure: No Advance Directives Date on File: 11/23/22 service: Yes Current occupational status: retired Cognitive needs: No Hearing needs: No Vision needs: No Questionnaire PHQ-9 Over the last 2 weeks, how often have you been bothered by any of the following problems? 1. Little interest or pleasure in doing things: not at all 2. Feeling down, depressed, or hopeless: not at all 3. Trouble falling or staying asleep, or sleeping too much: not at all 4. Feeling tired or having little energy: more than half the days 5. Poor appetite or overeating: several days 6. Feeling bad about yourself - or that you are a failure or have let yourself or your family down: not at all 7. Trouble concentrating on things, such as reading the newspaper or watching television: not at all 8. Moving or speaking so slowly that other people could have noticed. Or the opposite - being so fidgety or restless that you have been moving around a lot more than usual: nearly every day 9. Thoughts that you would be better off or of hurting yourself in some way: not at all Total score: 6 Depression Screening Interpretation: Negative Depression Screening Done: Yes 42625 - PHQ-9 Billing: Yes Source: Developed by Drs. Steven Kaplan, Alana Day, Perry Elmore and colleagues, with an educational yehuda from [employer]. Thrive Questionnaire Date Thrive assessed: 11/23/24 I am a: Patient What is your living situation today?: I have a steady place to live Within the past 12 months, did the food you bought not last and you didn't have the money to get more?: Never true Within the past 12 months, did you worry whether your food would run out before you got money to buy more?: Never true Do you have trouble paying for medicines?: No Do you have trouble getting transportation to medical appointments?: No Do you have trouble paying your heating and electricity bill?: No Do you have trouble taking care of your child, family member or friend?: No Do you have trouble with day-to-day activities such as bathing, preparing meals, shopping, managing finances, etc.?: No Are you currently unemployed and looking for a job?: No Are you interested in more education?: No Please select the resources that you would like help with: None Currently or been in a relationship where the following occur: No concerns reported THRIVE Score: 0 TAM-7 AMB Questionnaire TAM-7 Date TAM - 7 assessed: 01/08/25 Feeling nervous, anxious, or on edge: 0 = Not at all Not being able to stop or control worryin = Not at all Worrying too much about different things: 0 = Not at all Trouble relaxin = Not at all Being so restless that it is hard to sit still: 0 = Not at all Becoming easily annoyed or irritable: 0 = Not at all Feeling afraid as if something awful might happen: 0 = Not at all Total TAM-7 score (0-4 normal; 5-9 mild; 10-14 moderate; 15-21 severe): 0 Source: Developed by Drs. Steven Kaplan, Alana Day, Perry Elmore and colleagues, with an educational yehuda from [employer]. TAM-7 Assessment Billing TAM-7 Assessment Tool: TAM-7 Assessment 11774 Physical exam (Primary Care) BMI result Body Mass Index 35.9 Tobacco/Smoking Status: Tobacco use Status Tobacco use date assessed 12/21/24 01/08/25 11:43 Patient Tobacco Use Status Former Tobacco user 01/08/25 11:43 e-Cigarette/Vaping Use Never Used 01/08/25 11:43 Depression Screening Interpretation: Negative Thrive Assessment: Date of Thrive Assessment Date Thrive assessed 11/23/24 01/08/25 11:43 Currently or been in a relationship where the following occur: No concerns reported Coding Level of Care Code Est Pt Level 4 (56930) Diagnoses Crohn's colitis K50.10 Orthostatic hypotension I95.1 A-fib I48.91 Left arm weakness R29.898 Eczema of lower extremity L30.9 Additional Codes PHQ-9 - 36927 - PHQ-9 Billing: Yes ([id number]) TAM-7 Assessment Billing - TAM-7 Assessment Tool: TAM-7 Assessment 39258 ([id number]) Assessment & Plan Assessment & Plan (1) Crohn's colitis: Code(s): K50.10 - Crohn's disease of large intestine without complications Category: Medical (2) Orthostatic hypotension: Code(s): I95.1 - Orthostatic hypotension Category: Medical (3) A-fib: Code(s): I48.91 - Unspecified atrial fibrillation Category: Medical (4) Left arm weakness: Code(s): R29.898 - Other symptoms and signs involving the musculoskeletal system Category: Medical (5) Orthostatic hypotension: Code(s): I95.1 - Orthostatic hypotension Category: Medical (6) A-fib: Code(s): I48.91 - Unspecified atrial fibrillation Category: Medical (7) Left arm weakness: Code(s): R29.898 - Other symptoms and signs involving the musculoskeletal system Category: Medical (8) Eczema of lower extremity: Code(s): L30.9 - Dermatitis, unspecified Category: Medical Plan . Orders: Orders Complete Blood Count Auto Diff Today I48.91 - Unspecified atrial fibrillation, I95.1 - Orthostatic hypotension, K50.10 - Crohn's disease of large intestine without complications, R29.898 - Other symptoms and signs involving the musculoskeletal system TSH reflex Free T4 Today I48.91 - Unspecified atrial fibrillation, I95.1 - Orthostatic hypotension, K50.10 - Crohn's disease of large intestine without complications, R29.898 - Other symptoms and signs involving the musculoskeletal system UA CC w/rflx Micro + Cult Today I48.91 - Unspecified atrial fibrillation, I95.1 - Orthostatic hypotension, K50.10 - Crohn's disease of large intestine without complications, R29.898 - Other symptoms and signs involving the musculoskeletal system Comprehensive Met. Panel Today I48.91 - Unspecified atrial fibrillation, I95.1 - Orthostatic hypotension, K50.10 - Crohn's disease of large intestine without complications, R29.898 - Other symptoms and signs involving the musculoskeletal system Magnesium Today I48.91 - Unspecified atrial fibrillation, I95.1 - Orthostatic hypotension, L30.9 - Dermatitis, unspecified, R29.898 - Other symptoms and signs involving the musculoskeletal system
[2025-01-08 11:43] VITALS: BP 110/70; PULSE 95; RESP 16; O2SAT 99; BMI 35.9
== END 2025-01-08 13:05 | disposition home or self-care (01) ==
LOC: HO.HMCC 11:34
PROVIDERS: PCP Nurse Practitioner Family; Visit Provider Nurse Practitioner Family
DX: K50.10 Crohn's disease of large intestine without complications (principal); I95.1 Orthostatic hypotension; I48.91 Unspecified atrial fibrillation; R29.898 Other symptoms and signs involving the musculoskeletal system; L30.9 Dermatitis, unspecified

== ENCOUNTER 2025-01-08 11:33 | Outpatient (REF) | payer MEDICARE, OTHER, SELFPAY ==
[2025-01-08 16:07] LABS: MANUAL DIFF FLAG NO
[2025-01-08 16:13] LABS: Hematocrit 33.1 % (42.0-52.0); Hemoglobin 9.8 g/dl (14.0-18.0); Imm Gran Abs Auto 0.04 X10*3/uL (0.00-0.03); Imm Gran Pct Auto 0.6 % (0.0-0.4); Lymphocytes Absolute Auto 0.5 X10*3/uL (1.2-4.9); Mean Corpuscular HGB Conc 29.6 g/dl (31.0-36.0); Mean Corpuscular Hemoglobin 28.2 pg (27.0-33.0); Mean Corpuscular Volume 95.1 fL (80.0-98.0); NRBC Abs Auto 0.000 X10*3/uL (0.0-0.012); NRBC Pct Auto 0.0 /100WBC (0.0-0.2); Platelet Count 332 X10*3/uL (160-400); Red Blood Count 3.48 X10*6/uL (4.60-5.80); White Blood Count 6.8 X10*3/uL (4.8-10.8)
[2025-01-08 16:33] LABS: Alanine Aminotransferase 34 U/L (0-40); Albumin Level 4.0 g/dL (3.5-5.0); Alkaline Phosphatase 99 U/L (39-117); Anion Gap 14 (12-20); Aspartate Amino Transferase 30 U/L (5-37); Blood Urea Nitrogen 16 mg/dL (9-16); Calcium 8.9 mg/dL (8.4-10.2); Carbon Dioxide 25 mmol/L (22-29); Chloride 109 mmol/L (96-108); Estimated Glomerular Filt Rate > 60; Magnesium 2.1 mg/dL (1.6-2.6); Potassium 4.5 mmol/L (3.3-5.1); Sodium 143 mmol/L (135-145); Total Protein 6.8 g/dL (6.5-8.0)
== END 2025-01-08 11:34 | disposition home or self-care (01) ==
LOC: HO.HMGCLDS 11:33
PROVIDERS: PCP Nurse Practitioner Family; Visit Provider Nurse Practitioner Family
DX: I95.1 Orthostatic hypotension (principal); I48.91 Unspecified atrial fibrillation; K50.10 Crohn's disease of large intestine without complications; R29.898 Other symptoms and signs involving the musculoskeletal system; L30.9 Dermatitis, unspecified; Z79.82 Long term (current) use of aspirin; Z79.52 Long term (current) use of systemic steroids; Z79.899 Other long term (current) drug therapy
CPT/HCPCS: 36415; 80053; 83735; 84443; 85025; 96127; 99212

== ENCOUNTER 2025-02-02 09:27 | Outpatient (AMB) | payer MEDICARE, OTHER, SELFPAY ==
--- NOTE | 2025-02-02 10:14 | MHC.OFFWIV ---
Intake Vital Signs 02/02/25 10:16 Height 5 ft 10 in Weight 250 lb BMI 35.9 BP 114/82 Pulse 108 H Temp 97.8 F Pulse Oximetry (%) 95 Intake Visit Reasons: EP-lt ear infection [phone] Intake Note: Pt is coming in with dizziness and feels something in his left ear for x3 days no pain . Patient Tobacco Use Status: Former Tobacco user Accompanied by: Self / Same As Patient Allergies oatmeal Allergy (Mild, Uncoded 02/02/25 10:13) hives Do you need a note to return to daycare/school/sports/work: No HPI EP-lt ear infection [phone] HPI Details 75 year old male patient presents to the [place] clinic today with report of intermittent vertigo and sensation of fullness in his left ear. This has been going on the last 3-4 days. Denies any upper respiratory or sinus symptoms. Denies any recent illnesses. [facility] Medical History A-fib Crohn's colitis Presence of Watchman left atrial appendage closure device RANULFO (obstructive sleep apnea) BPH (benign prostatic hyperplasia) New onset a-fib Foreign body of finger of right hand Left anterior fascicular block (LAFB) Iron deficiency Depression Vertebral compression fracture PLMD (periodic limb movement disorder) PVD (peripheral vascular disease) Dyslipidemia HTN (hypertension) Crohn's disease Venous insufficiency of both lower extremities Surgical History History of cholecystectomy Status post endovenous radiofrequency ablation (RFA) of saphenous vein Family History Father Cancer of prostate Mother Anxiety Sister Breast cancer Sister Nephritis Sister No problems noted. Sister No problems noted. Sister No problems noted. Daughter Substance use disorder Mental health disorder Daughter No problems noted. Daughter No problems noted. Brother No problems noted. Brother No problems noted. Brother Epilepsy Paternal Grandfather Substance use disorder Social History Household Members: Family Housing: House Do you presently have visiting nurse or other home services: No Alcohol intake: never Patient Tobacco Use Status: Former Tobacco user Years Smoked: 50 years ago e-Cigarette/Vaping Use: Never Used Second Hand Smoke Exposure: No Advance Directives Date on File: 11/23/22 service: Yes Current occupational status: retired Cognitive needs: No Hearing needs: No Vision needs: No Review of Systems Const All systems reviewed & are unremarkable except as noted in HPI and below Physical Exam Vital Signs: Last Vital Signs Temp 97.8 F 02/02/25 10:16 Pulse 108 H 02/02/25 10:16 BP 114/82 02/02/25 10:16 Pulse Ox 95 02/02/25 10:16 BMI result Body Mass Index 35.9 Const General: cooperative, healthy appearing, comfortable and no acute distress Limitations: no limitations HEENT Head: Yes normal to inspection and Yes normocephalic Ears: TM normal on the right, hearing grossly impaired and TM abnormal wth effusion purulent on the left and erythematous on the left General nose exam: Normal external nose present Face and sinus: Yes normal facial exam Mouth: Normal oral and palatal mucosa present Neck Neck: Yes no lymphadenopathy Resp Effort & Inspection: normal respiratory effort Auscultation: clear to auscultation bilaterally Skin General skin exam: no rashes or lesions noted Extrem General: Yes no clubbing, cyanosis or edema Psych Appearance: grossly normal Mental Status: mental status grossly normal Speech and movement: Normal speech and movement present Assessment & Plan Assessment & Plan (1) Left otitis media with effusion: Code(s): H65.92 - Unspecified nonsuppurative otitis media, left ear Plan: Augmentin BID 7 days for left OM with effusion. We reviewed indications, use, possible side effects of this. He is also going to try an maka-hvw-qcpveja decongestant. If he does not improve with treatment or if sensation of vertigo continues following treatment, he can return to the clinic for further evaluation. Patient verbalizes understanding and agrees to plan. Medications: New amoxicillin-pot clavulanate 875-125 mg 1 tab PO BID 14 tabs 0RF 7 days H65.92 - Unspecified nonsuppurative otitis media, left ear Coding Level of Care Code Est Pt Level 4 (49120) Diagnoses Left otitis media with effusion H65.92
[2025-02-02 10:16] VITALS: BP 114/82; PULSE 108; TEMP 36.6; O2SAT 95; BMI 35.9
--- OUTSIDE RECORDS SUMMARY | 2025-02-02 10:39 | XMS_ITS | Data Portability ---
Author Organization [facility] Address [address] [place] [address] Care Team Providers Care Vineyardist Name Role Phone MARIAH DSOUZA Primary Care Provider Assessment No assessment recorded. Plan of Treatment Reminders Order Date Submit Date Provider Last Modified By Organization Details Last Modified Time Details Appointments None recorded. Lab None recorded. Referral emergency medicine referral - Chest pain started today, constant, Abnormal EKG, Afib . need further evaluation and treatment. 2022 023 [email or web address] 26 [facility] Emergency [facility], [address] [place] [address], [phone], 3 09:04:02 Procedures None recorded. Surgeries None recorded. Imaging electrocard iogram 2022 023 [email or web address] [facility], [address] [place] [address], [phone], 3 09:27:26 Medication Orders Children's Aspirin 81 mg chewable tablet 2022 023 [email or web address] Not available 3 09:24:46 Patient TargetsNo targets recorded. Patient Instructions Encounter Date Encounter Id Patient Instructions Last Modified By Organization Details Last Modified Time 05/24/2022 [id number] chest pain: care instructions [email or web address] Not available 05/24/2022 09:17:02 If you have [...] am No observ ation record ed. [email or web address] [address], [place], [address], 05/24/2022 09:20:51 Result Notes None recorded. Problems Name Problem SNOMED Code Status Onset Date Resolution Date Notes Provider Name and Address Organization Details Recorded Time Hypertensive disorder 14887462 Active 2022 Shannen ortiz, PA - [facility] 3 08:53:36 Hypercholestero lemia 12407027 Active 2022 Shannen ortiz, PA - [facility] 3 08:53:43 Crohn's disease 51116067 Active 2022 Shannen Sanchez null, PA - [facility] 3 08:53:48 Depressive disorder 69011706 Active 2022 Shannen ortiz, PA - [facility] 3 08:53:57 Atrial fibrillation 90519933 Active 2022 Shannen ortiz, PA - [facility] 3 08:59:52 Problem Notes None recorded. Procedures Surgical History Date Name Laterality Status Provider Name and Address Organization Details Recorded Time tonsillectomy completed Shannen Sanchez PA - [facility] 05/24/2022 08:55:35 cholecystectomy completed Shannen Sanchez PA - [facility] 05/24/2022 08:55:42 ligation of varicose vein completed Shannen Sanchez PA - [facility] 05/24/2022 08:56:06 Imaging Results None recorded. Procedure Notes None recorded. Medical Equipment None [...] Heart rate Respiratory rate Body temperature Systolic And Diastolic Provider Name and Address Organization Details Last Updated DateTime 3 177.8 cm 34.4 kg/m2 370245. 17 g 2 98 % 98 % 91 /min 18 /min 98 [degF] 116/74 mm[Hg] Shannen Laura [facility] 3 08:57:55 Social History Question Answer Notes LastModified by Server Density Details LastModified Time Tobacco Smoking Status Former Smoker 60 years ago Shannen ortiz [employer] [facility] 05/24/2022 08:55:07 Have You Recently Traveled Abroad? No Information not available 05/24/2022 Sex: Unknown Functional Status Question Answer Note LastModified by Server Density Details LastModified Time Do you use any [...] by Organization Details LastModified Time Sister Malignant neoplasm of breast emonfette Not available 2022 08:54:36 Brother SARS-CoV-2 emonfette Not avail able 05/24/2022 08:54:45 Medical History No medical history recorded. Past Encounters Encounter ID Performer Location Encounter Start Date Encounter Closed Date Diagnosis/Indication Diagnosis SNOMED-CT Code Diagnosis ICD10 Code Diagnosis IMO Codes Diagnosis Note [id number] [address] [facility] [address] [place] [address] 08/14/2017 08:55:53 08/14/2017 09:37:48 [id number] [address] [place] [address] 01/06/2021 16:43:45 01/06/2021 18:38:17 [id number] Parag Dudley NP [address] [facility] [place] [address] 05/24/2022 08:45:59 05/24/2022 09:27:26 Chest pain 46713072 R07.9 Paroxysmal atrial fibrillation 293817498 I48.0 AMA signed . refused Ambulance transfer. strongly encouraged to go straight to ED. [facility] ED notified about expected arrival. Health Concerns Section Related Observation LastModified by Organization Detai ls LastModified Time None Recorded Concern Status LastModified by Organization Details LastModified Time None Recorded Advance Directives Directive None Recorded Payers Insurance Date Sequence Insurance Name Policy Number Policy Kelley Covered Member ID Kelley Member ID Guarantor Name 05/24/2022 1 [place] [employer] Jonah Bond [id number] Jonah Bond 05/27/2022 2 [facility] Jonah Bond [id number] Jonah Bond Notes Date Note Type Note Provider Name and Address Organization Details Recorded Time 3 text/html Chest PainReported by PatientHPIFor quality, patient reportspressure,tightnes s, andaching. For context, patient reportsat rest. For aggravating factors, patient reportsworse with activity. For associated symptoms, patient reportschest discomfortandpalpitation sbut reportsno dyspnea,no decrease in exercise capacity,no fatigue,no nocturnal episodes,no resting episodes, andno associated dizziness. For source of patient information, patient reportsinformation obtained from patient,patient arrived at urgent care ambulatory, andlearning styles: auditory. For location, patient reportschestandleft arm. For severity, patient reportsmoderate. For duration, patient reportslasts hours. For onset/timing, patient reportsabrupt onset without warning. For alleviating factors, patient reportsnothing gives relief. Parag Dudley NP [address] [place], [address], [place] - [facility] 05/24/2022 09:33:38
--- OUTSIDE RECORDS SUMMARY | 2025-02-02 10:39 | XMS_ITS | Encounter Summary ---
Author Organization [facility] Address [address] [facility] [address] [place] [address] Care Team Providers Care Corset Fitter Name Role Phone No Pcp, Per Patient Primary Care Provider Corbin Mcrae MD Unavailable [phone] Emile Chamorro Unavailable [phone] Steven Guan Unavailable No Pcp, Per Patient Primary Care Provider Steve Kelsey MD Unavailable Encounter Details Date Type Department Care Team (Late st Contact Info) Description 10/13/2022 Orders Only [facility] [address] [address] Corbin Thomas MD [address] [place] [address] Atrial fibrillation, unspecified type Social History Tobacco [...] 2:20 PM EST Office Visit [facility] [address] [address] Corbin Thomas MD [address] [place] [address] documented as of this encounter Visit Diagnoses Diagnosis Atrial fibrillation, unspecified type documented in this encounter Care Teams Corset Fitter Relationship Specialty Start Date End Date No Pcp, Per Patient [place] PCP - General 03/24/22 05/27/23 No Pcp, Per Patient [place] PCP - General 05/28/23 Corbin Thomas MD [address] [place] [address] Data Integration Architect Cardiology 03/24/22 Emile Chamorro [address] [place] [address] 03/24/22 Steven Guan [address] [place] [address] 06/05/22 [place] [address] [place] [address] Referring Physician Fountain Operator 11/30/23 documented as of this encounter
--- OUTSIDE RECORDS SUMMARY | 2025-02-02 10:39 | XMS_ITS | Encounter Summary ---
Author Organization [facility] Address [address] [facility] [address] [place] [address] Care Team Providers Care Ticket Chopper Assembler Name Role Phone No Pcp, Per Patient Primary Care Provider Corbin Mcrae MD Unavailable [phone] Emile Chamorro Unavailable [phone] Steven Guan Unavailable No Pcp, Per Patient Primary Care Provider Steve Kelsey MD Unavailable Encounter Details Date Type Department Care Team (Late st Contact Info) Description 10/07/2022 Orders Only [facility] [address] [address] Corbin Thomas MD [address] [place] [address] Atrial fibrillation, unspecified type; 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 Social History Tobacco [...] 2:20 PM EST Office Visit [facility] [address] [address] Corbin Thomas MD [address] [place] [address] documented as of this encounter Visit Diagnoses Diagnosis Atrial fibrillation, unspecified type skilled nursing (current) use of anticoagulants Long-term (current) use of anticoagulants documented in this encounter Care Teams Ticket Chopper Assembler Relationship Specialty Start Date End Date No Pcp, Per Patient [place] PCP - General 03/24/22 05/27/23 No Pcp, Per Patient [place] PCP - General 05/28/23 Corbin Thomas MD [address] [place] [address] Claim Taker Cardiology 03/24/22 Emile Chamorro [facility] [address] [facility] [place] [address] 03/24/22 Steven Guan [address] [place] [address] 06/05/22 Steve Escamilla MD [address] [place] [address] Referring Physician Cnc Programmer 11/30/23 documented as of this encounter
--- OUTSIDE RECORDS SUMMARY | 2025-02-02 10:39 | XMS_ITS | Data Portability ---
Author Organization [facility], [employer] Address [address] [place] [address] Care Team Providers Care Stock Parts Inspector Name Role Phone JESSICA DENSON Primary Care Provider JESSICA DENSON Referring Provider [phone] Assessment No assessment recorded. Plan of Treatment Reminders Order Date Submit Date Provider Last Modified By Organization Details Last Modified Time Details Appointments None recorded. Lab None recorded. Referral None recorded. Procedures None recorded. Surgeries None recorded. Imaging None recorded. Medication Orders triamcinol one acetonide 0.1 % lotion 2017 018 INTERFACE [employer] [facility] [employer] #[id number], [address] [place], [place], [id number], 8 14:22:00 Patient TargetsNo targets recorded. Patient Instructions Encounter Date Encounter Id Patient Instructions Last Modified By Organization Details Last Modified Time 01/18/2018 [id number] TREATMENT: PVD Footcare: Exam patient from pedal [...] sharply to the tolerance of the patient, Lt. Hallux, bilateral nail border with curette of the subungal [...] Body mass index (BMI) Body height Systolic And Diastolic Provider Name and Address Organization Details Last Updated DateTime 01/18/2018 253209.13 g 35.2 kg/m2 177.8 cm 130/70 mm[Hg] [place] - [facility] 01/18/2018 13:10:34 Social History Question Answer Notes LastModified by Organizat ion Details LastModified Time Tobacco Smoking Status Former Smoker Not Available [facility] 01/23/2020 03:19:04 DATE LAST SEEN BY PCP 07/21/2017 [email or web address] Information not available 01/18/2018 What Was The Date Of Your Most Recent Tobacco Screening? 01/18/2018 [id number] Information not available 01/23/2020 Sex: Unknown Functional Status None recorded. Mental Status None recorded. 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 958646592 B35.1 Deformity of foot 491483 004 M21.969 Corns and callus 0109851 00 L84 Pain in lower limb 36186 006 M79.669 Stasis dermatitis 522210 05 I87.2 Health Concerns Section Related Observation LastModified by Organization Detai ls LastModified Time None Recorded Concern Status LastModified by Organization Details LastModified Time None Recorded Advance Directives Directive None Recorded Payers Insurance Date Sequence Insurance Name Policy Number Policy Kelley Covered Member ID Kelley Member ID Guarantor Name 01/18/2018 1 [place] [employer] Jonah Bond [id number] Jonah Bond 01/18/2018 2 [facility] (MEDICARE SUPPLEMENT) Jonah Bond [id number] Jonah Bond Notes Date Note Type Note Provider Name and Address Organization Details Recorded Time 8 text/html Podiatry ToesReported by PatientHPIFor associated symptoms, patient reportsbucklingbut reportsno weakness,no numbness,no swelling,no redness,no warmth,no ecchymosis,no catching/locking,no popping/clicking,no grinding,no instability,no radiation down leg,no drainage,no fever,no chills,no weight loss,no change in bowel/bladder habits, andno tingling(2nd, 3rd toes). For location, patient reportsbilateral,deep, andplanar(plantar aspect of the 1st metatarsal head). For quality, patient reportsaching,throbbing, andsharp. For severity, patient reportsmoderate. For duration, patient reportsseveral yearsandcontinuous since onset. For timing, patient reportschronic. For context, patient reportssports injury. For alleviating factors, patient reportsnothing helps. For aggravating factors, patient reportscannot identify. For previous surgery, patient reportsnone. For prior imaging, patient reportsnone. For previous injections, patient reportsnone. For previous pt, patient reportsnone. Mycotic nail careReported by PatientHPIFor associated symptoms, patient reportsswellingandpain with direct compression. For location, patient reportsbilateral (severe callus plantar aspect of the 5th mtpj region.),toenails left 5, andtoenails right 5. For quality, patient reportsconstant. For severity, patient reportsmoderate. For duration, patient reportsseveral yearsandcontinuous since onset. For timing, patient reportschronic. For context, patient reportsdifficulty finding comfortable shoes. For alleviating factors, patient reportsnothing helps. For aggravating factors, patient reportsweightbearing,occuri ng with exercise, andprecipitated by wearing shoes. For previous surgery, patient reportsnone. For previous treatment, patient reportsnone.ROS as noted in the HPI INITIAL presentation to our office for obvious PVD affected foot exam and education regarding foot care. The patient notes specific pain in the feet on presentation--corresponding to a plantar corn on the Lt. foot that does get irritated with shoegear use. The patient notes that the thickness of the toenails and length cause a significant amount of pain with weightbearing at this time. Cricket Escalante, LI [address] [place] [address], [phone], [facility] - [facility] 01/18/2018 14:21:56
--- OUTSIDE RECORDS SUMMARY | 2025-02-02 10:39 | XMS_ITS | Clinical Summary ---
Author Organization [facility] Address [address] [facility] [address] [place] [address] Care Team Providers Care Freelance Director Name Role Phone Corbin Thomas MD Unavailable Emile Chamorro Unavailable [phone] Steven Guan Unavailable No Pcp, Per [...] Units by mouth in the morning. Active [id number]-epa- [id number]-mt-mv 1.5 mg iron- 8.73 mg capsule,IR - [...] 5 mg tabletIndication s:Coronary artery disease involving [place] coronary artery of [place] heart without angina pectoris TAKE 1 TABLET(5 [...] closure device,Venous insufficiency,Co ronary artery disease involving [place] coronary artery of [place] heart without angina pectoris,Mixed hyperlipidemia,L ocalized edema [...] 10 mg tabletIndication s:Coronary artery disease involving [place] coronary artery of [place] heart without angina pectoris,Left anterior fascicular block,Mixed hyperlipidemia,V enous insufficiency,Pe rmanent atrial fibrillation TAKE 1 TABLET(10 MG) BY MOUTH DAILY 90 tablet 3 10/24/19 25 2024 Discontinued Active Problems Patient Care Coordination No te Formatting of this note migh t be different from the original. 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 2022 Coronary artery disease invo lving conf[place] coronary artery of [place] heart without angina pectoris 07/03/2021 Mixed hyperlipidemia 07/03/2021 Venous insufficiency 07/03/2021 Encounters Date Type Department Care Team Description 01/05/2025 12:40 PM EDT Office Visit [facility] [address] [address] Corbin Thomas MD Permanent atrial fibrillation (Primary Dx); Presence of Watchman left atrial appendage closure device; Venous insufficiency; Coronary artery disease involving [place] coronary artery of [place] heart without angina pectoris; Mixed hyperlipidemia; Localized edema 01/05/2025 Travel 12/26/2024 Telephone [facility] [address] [address] Corbin Thomas MD hospital f/u 12/04/2024 Telephone [facility] [address] [address] Malissa Ardon, RN Labs Only from Last 3 Months Family History Medical History Relation Name Comments Atrial fibrillation Brother Coronary artery disease Father OR a nd PPM at later age Relation [...] 2:20 PM EST Office Visit [facility] [address] [place] [address] Corbin Thomas MD [address] [place] [address] Health Maintenance Due Date Last Done Comments [...] lead (Back Office) (01/05/2025 12:46 PM EDT) Corbin Thomas MD ECG ORDERABLES Final Res ult from Last 3 Months Insurance MEDICARE PART A AND B [facility] Care Teams Freelance Director Relationship Specialty Start Date End Date No Pcp, Per Patient JASON PCP - General 05/28/23 Corbin Thomas MD [address] [place] [phone] Maintenance Truck Driver Cardiology 03/24/22 Emile Chamorro [address] [place] [id number] 03/24/22 Steven Guan [address] [place] [address] 06/05/22 Steve Escamilla MD [address] [place] [address] Referring Physician Piano Bench Assembler 11/30/23
--- OUTSIDE RECORDS SUMMARY | 2025-02-02 10:39 | XMS_ITS | Encounter Summary ---
Author Organization [facility] Address [address] [facility] [address] [place] [address] Care Team Providers Care Trench Digger Name Role Phone No Pcp, Per Patient Primary Care Provider Corbin Mcrae MD Unavailable [phone] Emile Chamorro Unavailable [phone] Steven Guan Unavailable No Pcp, Per Patient Primary Care Provider Steve Kelsey MD Unavailable Encounter Details Date Type Department Care Team (Late st Contact Info) Description 10/02/2022 Orders Only Heart [address] [address] Corbin Thomas MD [address] [place] [address] Coronary artery disease involving kar[place] coronary artery of [place] heart without angina pectoris; Left anterior fascicular [...] 02/06/2025 2:20 PM EST Office Visit Heart [address] [address] Corbin Thomas MD [address] [place] [address] documented as of this encounter Visit Diagnoses Diagnosis Coronary artery disease involving kar[place] coronary artery of [place] heart without angina pectoris Left anterior fascicular block Left bundle branch hemiblock Mixed hyperlipidemia Venous insufficiency Unspecified venous (peripheral) insufficiency Permanent atrial fibrillation Atrial fibrillation documented in this encounter Care Teams Trench Digger Relationship Specialty Start Date End Date No Pcp, Per Patient [place] PCP - General 03/24/22 05/27/23 No Pcp, Per Patient [place] PCP - General 05/28/23 Corbin Thomas MD [address] [place] [address] Folding Machine Feeder Cardiology 03/24/22 Emile Chamorro [address] [place] [address] 03/24/22 Steven Guan [address] [place] [address] 06/05/22 Steve Escamilla MD [address] [place] [address] Referring Physician Electric Razor Mechanic 11/30/23 documented as of this encounter
== END 2025-02-02 10:46 | disposition home or self-care (01) ==
PROVIDERS: PCP Nurse Practitioner Family; Visit Provider Nurse Practitioner Family
DX: H65.92 Unspecified nonsuppurative otitis media, left ear (principal)

== ENCOUNTER → 2025-02-02 09:27 | Outpatient (BNVA) | payer MEDICARE, OTHER, SELFPAY | PROVIDERS: PCP Nurse Practitioner Family | DX: H65.92 Unspecified nonsuppurative otitis media, left ear (principal) | CPT/HCPCS: 99212 ==

== ENCOUNTER 2025-03-16 10:42 | Outpatient (AMB) | payer MEDICARE, OTHER, SELFPAY ==
--- NOTE | 2025-03-16 10:44 | A.OFFPC_ITS ---
Vital Signs 03/16/25 10:45 Height 5 ft 10 in Weight 244 lb BMI 35.0 BP 102/70 Blood Pressure Location Lt brachial Position Sitting Respiration 16 Pulse 97 Pulse Source Pulse Oximeter Pulse Oximetry (%) 98 Oxygen Delivery Method Room Air Intake Visit Reasons: HDF ~ Post hospital discharge FU Grid Maker Required: No Accompanied by: Self / Same As Patient Allergies oatmeal Allergy (Mild, Uncoded 02/02/25 10:13) hives Tobacco use date assessed: 01/08/25 Dental Screening Dental Screen Date: 01/08/25 HPI HPI Comments History of Present Illness Details History of Present Illness - The patient is a 75-year-old male pres enting for follow-up after a recent hospitalization for pulmonary embolism. - He has a past medical history of atria l fibrillation for which he was not on anticoagulation, hypertension, hyperlipidemia, Crohn's disease, and chronic fluid retention on torsemide. - On March 01, he was sent from this office via ambulance to the [facility] Emergency Department complaining of shortness of breath, increased lower extremity swelling, and feeling like he was going to pass out. - In the emergency department, he was fo und to be hypoxic in the low 90s, requiring 2 liters of O2, and complained of chest pressure. - Laboratory workup revealed an elevated D-dimer, low potassium, low hemoglobin and hematocrit, and an elevated proBNP of 1,362. - A chest CTA showed multiple bilateral segmental and subsegmental pulmonary embolisms. - He was admitted to the hospital on Feb and discharged on March 14. - Discharge diagnoses included anemia, b leeding bowel movements, dehydration, dizziness, and orthostatic hypotension. - Hospital stool studies were negative f or infectious causes. - The patient's torsemide and tamsulosin were stopped in the hospital due to concerns they were contributing to his low blood pressure. - He was prescribed Eliquis upon dischar ge but has not yet picked them up from the pharmacy, as he was waiting for them to be delivered. - He reports his rectal bleeding has slo wed and is not as bad as usual. Review of Systems - General: Reports feeling better. - Respiratory: Reports improved breathin g. - Cardiovascular: Denies chest pressure. - GI: Reports ongoing rectal bleeding wi th bowel movements, but states it is not as bad as usual. - Extremities: Reports leg swelling look s good and has improved. - Neurological: Reports feeling dizzy pr eviously. All systems reviewed and are unremarkable except as noted in HPI Physical Exam General: Cooperative, healthy appearing, comfortable, no acute distress and well developed Orientation: Patient oriented x3 Limitations: No limitations Head: Normal to inspection Ears: Hearing grossly normal bilaterally Nose: Normal External nose present Face and sinus: Normal facial exam Eyes: Appearance normal, both eyes and all related structures Neck: Normal visual inspection and Yes full ROM Respiratory: Normal respiratory effort and able to speak in complete sentences. Clear to auscultation throughout, no wheezes, rales and rhonchi. Cardiac: Regular rate and rhythm, Normal S1 and S2, no murmurs, rubs or gallops Skin: No rashes or lesions noted Neuro: Patient oriented x3, gait normal Extremities: Trace edema in both lower extremities [facility] Medical History A-fib Crohn's colitis Presence of Watchman left atrial appendage closure device RANULFO (obstructive sleep apnea) BPH (benign prostatic hyperplasia) New onset a-fib Foreign body of finger of right hand Left anterior fascicular block (LAFB) Iron deficiency Depression Vertebral compression fracture PLMD (periodic limb movement disorder) PVD (peripheral vascular disease) Dyslipidemia HTN (hypertension) Crohn's disease Venous insufficiency of both lower extremities Surgical History History of cholecystectomy Status post endovenous radiofrequency ablation (RFA) of saphenous vein Family History Father Cancer of prostate Mother Anxiety Sister Breast cancer Sister Nephritis Sister No problems noted. Sister No problems noted. Sister No problems noted. Daughter Substance use disorder Mental health disorder Daughter No problems noted. Daughter No problems noted. Brother No problems noted. Brother No problems noted. Brother Epilepsy Paternal Grandfather Substance use disorder Social History Household Members: Family Housing: House Do you presently have visiting nurse or other home services: No Alcohol intake: never Patient Tobacco Use Status: Former Tobacco user Years Smoked: 50 years ago e-Cigarette/Vaping Use: Never Used Second Hand Smoke Exposure: No Advance Directives Date on File: 11/23/22 service: Yes Current occupational status: retired Cognitive needs: No Hearing needs: No Vision needs: No Questionnaire Thrive Questionnaire Date Thrive assessed: 11/23/24 TAM-7 AMB Questionnaire TAM-7 Date TAM - 7 assessed: 01/08/25 Source: Developed by Drs. Steven Kaplan, Alana Day, Perry Elmore and colleagues, with an educational yehuda from [employer]. Review of Systems Const All systems reviewed & are unremarkable except as noted in HPI and below Physical exam (Primary Care) Vital Signs: Last Vital Signs Pulse 109 H 03/16/25 10:45 Resp 16 03/16/25 10:45 BP 102/70 03/16/25 10:45 Pulse Ox 98 03/16/25 10:45 Oxygen Delivery Method Room Air 03/16/25 10:45 BMI result Body Mass Index 35.0 Tobacco/Smoking Status: Tobacco use Status Tobacco use date assessed 01/08/25 03/16/25 10:44 Patient Tobacco Use Status Former Tobacco user 03/16/25 10:44 e-Cigarette/Vaping Use Never Used 03/16/25 10:44 Thrive Assessment: Date of Thrive Assessment Date Thrive assessed 11/23/24 03/16/25 10:44 Coding Level of Care Code Est Pt Level 4 (71330) Diagnoses Bilateral pulmonary embolism I26.99 Orthostatic hypotension I95.1 Hospital discharge follow-up Z09 Anemia in other chronic diseases classified elsewhere D63.8 Anemia type: other cause Other causes of anemia: chronic disease, other Assessment & Plan Assessment & Plan (1) Bilateral pulmonary embolism: Code(s): I26.99 - Other pulmonary embolism without acute cor pulmonale Category: Medical Plan: Bilateral Pulmonary Embolism The patient was recently hospitalized and diagnosed with multiple bilateral segmental and subsegmental pulmonary embolisms after presenting with dyspnea and hypoxia. He reports his breathing is better now. He was prescribed Eliquis 5 mg twice a day but has not yet started the medication. Plan includes instructing the patient to picker box operator and start Eliquis immediately from [facility] but they are out of stock, more medication should be arriving today. Provided extensive education on bleeding precautions, including seeking immediate evaluation at an emergency department for any fall with head injury or loss of consciousness. Patient was informed and verbally consented to the use of an ambient scribe for clinic note documentation during this visit. (2) Orthostatic hypotension: Code(s): I95.1 - Orthostatic hypotension Category: Medical Plan: Hypertension and Orthostatic Hypotension The patient has a history of hypertension, but his tamsulosin and torsemide were both held in the hospital due to concerns for contributing to low blood pressure and orthostatic hypotension. His blood pressure today is 102/70 mmHg. On exam, he has trace bilateral pedal edema. His torsemide was stopped in the hospital. His sealer sander, Dr. Thomas, recommended restarting the torsemide via telehealth visit yesterday per patient. Plan is to restart torsemide 20 mg daily. The patient was instructed to monitor for dizziness, stop the medication if it occurs, and contact the office. Plan is to continue holding tamsulosin for now. He was advised to change positions slowly and will monitor his blood pressure at home twice daily with a log to be reviewed at his follow-up appointment. The patient requires close monitoring of his conditions and response to medication changes. Plan is for him to follow up in the office with Emile on April 03, at 12:45. He will bring his home blood pressure log to this visit. (3) Hospital discharge follow-up: Code(s): Z09 - Encounter for follow-up examination after completed treatment for conditions other than malignant neoplasm Category: Medical Plan: see above and below. (4) Anemia: Code(s): D64.9 - Anemia, unspecified Category: Medical Qualifiers: Anemia type: other cause Other causes of anemia: chronic disease, other Qualified Code(s): D63.8 - Anemia in other chronic diseases classified elsewhere Plan: Anemia and Rectal Bleeding The patient has a history of anemia related to his Crohn's disease and reports o ngoing but improved rectal bleeding. His hemoglobin and hematocrit on discharge were 9 and 30, which is an improvement. He will be started on Eliquis, which increases his bleeding risk. Plan is to monitor symptoms and educate the patient on bleeding risks.
[2025-03-16 10:45] VITALS: BP 102/70; PULSE 97; RESP 16; O2SAT 98; BMI 35.0
--- OUTSIDE RECORDS SUMMARY | 2025-03-16 12:26 | XMS_ITS | Clinical Summary ---
Author Organization [employer] Address [address] [facility] [address] [place] [address] Care Team Providers Care Objective C Developer Name Role Phone Corbin Thomas MD Unavailable Emile Chamorro Unavailable [phone] Steven Guan Unavailable No Pcp, Per [...] Units by mouth in the morning. Active [id number]-FW-gga-epa- IZK-VYML-[id number]-mv 1.5 mg iron- 8.73 mg capsule,IR - [...] Do not crush, chew, or split. Active aspirin 81 mg EC tablet Take 81 mg by mouth once daily. Active rosuvastatin (Crestor) 5 mg tabletIndication s:Coronary artery disease involving [place] coronary artery of [place] heart without angina pectoris TAKE 1 TABLET(5 MG) BY MOUTH DAILY 90 tablet 3 08/29/19 25 Active predniSONE (Deltasone) 20 mg tablet Take 40 mg by mouth once daily. 06/01/19 25 Active amoxicillin-pot clavulanate (Augmentin) 875-125 mg tablet Take 1 tablet by mouth twice daily. 02/03/20 25 Active torsemide (Demadex) 20 mg tabletIndication s:Permanent atrial fibrillation,Pre sence of Watchman left atrial appendage closure device,Venous insufficiency,Co ronary artery disease involving [place] coronary artery of [place] heart without angina pectoris,Mixed hyperlipidemia,L ocalized edema Take 2 tablets (40 mg) by mouth once daily. 180 tablet 3 02/07/20 25 Active potassium chloride CR (K-Tab) 20 mEq ER tabletIndication s:Permanent atrial fibrillation,Pre sence of Watchman left atrial appendage closure device,Venous insufficiency,Co ronary artery disease involving [place] coronary artery of [place] heart without angina pectoris,Acute on chronic diastolic heart failure,Mixed hyperlipidemia,L ocalized edema Take 1 tablet (20 mEq) by mouth once daily. 90 tablet 3 02/07/20 25 026 Active metoprolol succinate XL (Toprol-XL) 25 mg 24 hr tabletIndication s:Paroxysmal atrial fibrillation Take 0.5 tablets (12.5 mg) by mouth once daily. Do not crush or chew 45 tablet 3 02/07/20 25 026 Active hydroCHLOROthiaz watson (HYDRODiuril) 25 mg tablet Take 25 mg by mouth in the morning. 022 Discontinued Active Problems Patient Care Coordination No te Formatting of this note migh t be different from the original. 03/18/22 Amor Ndiaye with [facility] Problem Noted Date Diagnosed Date Atrial fibrillation 10/02/2022 jail (current) use of anticoagulants 2022 Coronary artery disease invo lving [place] coronary artery of [place] heart without angina pectoris 07/03/2021 Mixed hyperlipidemia 07/03/2021 Venous insufficiency 07/03/2021 Encounters Date Type Department Care Team Description 03/15/2025 Telephone [facility] [address] [address] Corbin Thomas MD medication questions ; pt is checking recreation engineer from dr. thomas 02/06/2025 2:20 PM EST Office Visit [facility] [address] [address] Corbin Thomas MD Permanent atrial fibrillation (Primary Dx); Presence of Watchman left atrial appendage closure device; Venous insufficiency; Coronary artery disease involving [place] coronary artery of [place] heart without angina pectoris; Acute on chronic diastolic heart failure; Mixed hyperlipidemia; Localized edema; Paroxysmal atrial fibrillation 02/06/2025 Travel 01/05/2025 12:40 PM EDT Office Visit [facility] [address] [address] Corbin Thomas MD Permanent atrial fibrillation (Primary Dx); Presence of Watchman left atrial appendage closure device; Venous insufficiency; Coronary artery disease involving [place] coronary artery of [place] heart without angina pectoris; Mixed hyperlipidemia; Localized edema 01/05/2025 Travel 12/26/2024 Telephone [address] [address] Corbin Thomas MD hospital f/u from Last 3 Months Family History Medical History Relation Name Comments Atrial fibrillation Brother Coronary artery disease Father [place] a nd PPM at later age Relation [...] Sign Reading Time Taken Comments Blood Pressure 103/67 02/06/2025 1:49 PM EST Pulse 85 02/06/2025 1:49 PM EST Temperature 36.6 C (97.9 F) 04/19/2018 2:30 PM EST Respiratory Rate - - Oxygen Saturation 98% 02/06/2025 1:49 PM EST Inhaled Oxygen Concentration - - Weight 117 kg (258 lb) 02/06/2025 1:49 PM EST Height 177.8 cm (5' 10 ) 02/06/2025 1:49 PM EST Body Mass Index 37.02 02/06/2025 1:49 PM EST Plan of Treatment Upcoming Encounters Date Type Department Care Team (Late st Contact Info) Description 08/17/2025 1:20 PM EDT Office Visit Heart Center [facility] [address] [place] [address] Corbin Thomas MD [address] [place] [address] Health Maintenance Due Date Last Done Comments Lipid Panel 1950 Diabetes Screening 01/13/1966 Hepatitis C Screening 01/13/1966 Zoster Vaccines (1 of 2) 01/13/1998 Medicare Annual Wellness (AWV) 08/28/2015 Depression Screening 03/29/2024 COVID-19 Vaccine ( season) 2024 05/07/2021, 08/23/2020, 07/26/2020 DTaP/Tdap/Td Vaccines (2 - Td or Tdap) 01/27/2026 01/28/2016, 04/16/2010 Pneumococcal Vaccine: 50+ Years Completed 03/24/2023, 03/29/2013, 04/26/2012 Pneumococcal Vaccine: Pediatrics (0 to 5 Years) and At-Risk Patients (6 to 49 Years) Discontinued 03/24/2023, 03/29/2013, 04/26/2012 Influenza Vaccine Completed 03/04/2025, , 11/17/2021, Additional history exists HIB Vaccines Aged Out No longer eligi ble based on patient's age to complete this topic HPV Vaccines (No Doses Required) Completed Hepatitis A Vaccines Aged Out No long [...] Date/Time Associated Diagnosis Comments ECG 12-LEAD Routine 02/06/2025 1:58 PM EST Permanent atrial fibrillation ECG 12-LEAD Routine 01/05/2025 12:46 PM EDT Permanent atrial fibrillation from Last 3 Months Results * ECG 12 lead (Back Office) (02/06/2025 1:58 PM EST) Only the most recent of2 resultswithin the time period is included. us Corbin Thomas MD ECG ORDERABLES Final Res ult from Last 3 Months Insurance MEDICARE PART A AND B [facility] Care Teams Objective C Developer Relationship Specialty Start Date End Date No Pcp, Per Patient [place] PCP - General 05/28/23 Corbin Thomas MD [address] [place] [address] Compliance Quality Performance Analyst Cardiology 03/24/22 Emile Chamorro [facility] [address] [place] [address] 03/24/22 Steven Guan [address] [place] [address] 06/05/22 [place] [address] [place] [phone] Referring Physician Explosion Welder 11/30/23
--- OUTSIDE RECORDS SUMMARY | 2025-03-16 12:26 | XMS_ITS | Encounter Summary ---
Author Organization [facility] Address [address] [facility] [address] [place] [address] Care Team Providers Care Doctor Of Podiatry Name Role Phone No Pcp, Per Patient Primary Care Provider Corbin Mcrae MD Unavailable Emile Chamorro Unavailable [phone] Steven Guan Unavailable No Pcp, Per Patient Primary Care Provider Steve Kelsey MD Unavailable Encounter Details Date Type Department Care Team (Late st Contact Info) Description 10/07/2022 Orders Only [facility] [address] [address] Corbin Thomas MD [address] [place] [phone] Atrial fibrillation, unspecified type; 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 Social History Tobacco [...] 1:20 PM EDT Office Visit [facility] [address] [address] Corbin Thomas MD [address] [place] [phone] documented as of this encounter Visit Diagnoses Diagnosis Atrial fibrillation, unspecified type prison (current) use of anticoagulants Long-term (current) use of anticoagulants documented in this encounter Care Teams Doctor Of Podiatry Relationship Specialty Start Date End Date No Pcp, Per Patient [place] PCP - General 03/24/22 05/27/23 No Pcp, Per Patient [place] PCP - General 05/28/23 Corbin Thomas MD [address] [place] [address] Shove Up Cardiology 03/24/22 Emile Chamorro [facility] [address] [facility] [place] [address] 03/24/22 Steven Guan [address] [place] [address] 06/05/22 [place] [address] [place] [address] [address] Electronic [address] Recorder 11/30/23 documented as of this encounter
--- OUTSIDE RECORDS SUMMARY | 2025-03-16 12:26 | XMS_ITS | Encounter Summary ---
Author Organization [facility] Address [address] [facility] [address] [place] [address] Care Team Providers Care Practice Administrator Name Role Phone No Pcp, Per Patient Primary Care Provider Corbin Mcrae MD Unavailable Emile Chamorro Unavailable [phone] Steven Guan Unavailable No Pcp, Per Patient Primary Care Provider Steve Kelsey MD Unavailable Encounter Details Date Type Department Care Team (Late st Contact Info) Description 10/13/2022 Orders Only [facility] [address] [address] Corbin Thomas MD [address] [place] [address] Atrial fibrillation, unspecified type Social History Tobacco [...] 08/17/2025 1:20 PM EDT Office Visit Heart [address] [address] Corbin Thomas MD [address] [place] [phone] documented as of this encounter Visit Diagnoses Diagnosis Atrial fibrillation, unspecified type documented in this encounter Care Teams Practice Administrator Relationship Specialty Start Date End Date No Pcp, Per Patient [place] PCP - General 03/24/22 05/27/23 No Pcp, Per Patient [place] PCP - General 05/28/23 Corbin Thomas MD [address] [place] [address] Software Quality Analyst Cardiology 03/24/22 Emile Chamorro [address] [place] [address] 03/24/22 Steven Guan [address] [place] [address] 06/05/22 [place] [address] [place] [phone] Referring Physician Physical Therapy Manager 11/30/23 documented as of this encounter
--- OUTSIDE RECORDS SUMMARY | 2025-03-16 12:26 | XMS_ITS | Encounter Summary ---
Author Organization [facility] Address [address] [facility] [address] [place] [address] Care Team Providers Care Senior Clinical Data Manager Name Role Phone No Pcp, Per Patient Primary Care Provider Corbin Mcrae MD Unavailable Emile Chamorro Unavailable [phone] Steven Guan Unavailable No Pcp, Per Patient Primary Care Provider Steve Kelsey MD Unavailable Encounter Details Date Type Department Care Team (Late st Contact Info) Description 10/02/2022 Orders Only [address] [address] Corbin Thomas MD [address] [place] [phone] Coronary artery disease involving [place] coronary artery of [place] heart without angina pectoris; Left anterior fascicular [...] Description 08/17/2025 1:20 PM EDT Office Visit [address] [address] Corbin Thomas MD [address] [place] [address] documented as of this encounter Visit Diagnoses Diagnosis Coronary artery disease involving [place] coronary artery of [place] heart without angina pectoris Left anterior fascicular block Left bundle branch hemiblock Mixed hyperlipidemia Venous insufficiency Unspecified venous (peripheral) insufficiency Permanent atrial fibrillation Atrial fibrillation documented in this encounter Care Teams Senior Clinical Data Manager Relationship Specialty Start Date End Date No Pcp, Per Patient [place] PCP - General 03/24/22 05/27/23 No Pcp, Per Patient [place] PCP - General 05/28/23 Corbin Thomas MD [address] [place] [address] Automatic Oven Operator Cardiology 03/24/22 Emile Chamorro [address] [address] 03/24/22 Steven Guan [address] [place] [address] 06/05/22 Steve Escamilla MD [address] [place] [address] Referring Physician Environmental Journalist 11/30/23 documented as of this encounter
--- OUTSIDE RECORDS SUMMARY | 2025-03-16 12:26 | XMS_ITS | Encounter Summary ---
Author Organization [facility] Address [address] [facility] [address] [place] [address] Care Team Providers Care Watch Band Assembler Name Role Phone Corbin Thomas MD Unavailable Emile Chamorro Unavailable [phone] Steven Guan Unavailable No Pcp, Per Patient Primary Care Provider Steve Kelsey MD Unavailable Reason for Visit * Reason Onset Date Comments medication questions 03/15/2025 pt is checking secondary teacher from dr. thomas 03/15/2025 Encounter Details Date Type Department Care Team (Late st Contact Info) Description 03/15/2025 Telephone Heart Center [facility] [address] [place] [address] Corbin Thomas MD [address] [place] [phone] medication questions ; pt is checking secondary teacher from dr. thomas Social History Tobacco Use Types Packs/Day Years Used Date Smoking Tobacco: Never Smokeless Tobacco: Never Sex and Gender Information Value Date Recorded Sex Assigned at Not on file Legal Sex Male 12:50 AM EST Gender Identity Not on file Sexual Orientation Not on file documented as of this encounter Miscellaneous Notes * Telephone Encounter - Corbin Thomas MD - 03/15/2025 4:55 PM EST I spoke to Reji. I reviewed his prolonged [facility] hospitalization. Crowell weak but not dizzy this AM. Swelling is minimal. No active rectal bleeding. Record review: CTA multiple bilateral segmental and subsegmental PE 03/01 Right gastroc DVT 03-05 Normal Echo 03-02-25 RECS: - Stop aspirin - Continue Eliquis 5mg BID for at least 3 months to treat the acute DVT/PE. After 3 months, we can then decreasing the dose to 2.5 mg TWICE daily - Resume Torsemide 20 mg QD with KCL only PRN for edema. - OK to continue Midodrine 5 mg TID for orthostatic hypotension. - STAY on Toprol XL 12.5 mg for AF rate control * Telephone Encounter - Arleen Tipton - 03/15/2025 4:47 PM EST Patient called because they are waiting for a call back from Dr. Thomas regarding their medications.Agent let patient know that there is communication between office staff about the situation and that as soon as Dr. Thomas is able, he will give the patient a call. The best # for the patient is [phone] * Telephone Encounter - Neetu Cervantes NP - 03/15/2025 4:34 PM EST Chart reviewed-patient admitted 3 days ago with worsening shortness of breath, found to have DVT/PE. Was told to hold torsemide due to low blood pressure, also noted to be started on midodrine. I called patient, he was discharged to home yesterday with no VNA services, he lives 2 hours away and would like to only speak with you via the telephone * Telephone Encounter - Casimiro Day - 03/15/2025 3:07 PM EST The patient was charged from [facility] yesterday 03/14. The patient is calling to speak with Dr. Thomas regarding medication. The patient states that the doctors there told him to stoptorsemide (Demadex) 20 mg tablet and predniSONE (Deltasone) 20 mg tablet medications. Please advise Call back number: [phone] documented in this encounter Plan of Treatment Upcoming Encounters Date Type Department Care Team (Late st Contact Info) Description 08/17/2025 1:20 PM EDT Office Visit [facility] Center [facility] [address] [place] [address] Corbin Thomas MD [address] [place] [phone] documented as of this encounter Visit Diagnoses Not on filedocumented in this encounter Care Teams Watch Band Assembler Relationship Specialty Start Date End Date No Pcp, Per Patient [place] PCP - General 05/28/23 Corbin Thomas MD [address] [place] [address] Bobbin Winder Cardiology 03/24/22 Emile Chamorro [facility] [address] [facility] [place] [address] 03/24/22 Steven Guan [address] [place] [address] 06/05/22 Steve Escamilla MD [address] [place] [phone] Referring Physician Service Promoter Salesperson 11/30/23 documented as of this encounter
== END 2025-03-16 14:08 | disposition home or self-care (01) ==
LOC: HO.HMCC 10:42
PROVIDERS: PCP Nurse Practitioner Family; Visit Provider Physician Assistant
DX: I26.99 Other pulmonary embolism without acute cor pulmonale (principal); I95.1 Orthostatic hypotension; Z09 Encounter for follow-up examination after completed treatment for conditions other than malignant neoplasm; D63.8 Anemia in other chronic diseases classified elsewhere

== ENCOUNTER → 2025-03-16 10:42 | Outpatient (BNVA) | payer MEDICARE, OTHER, SELFPAY | PROVIDERS: PCP Nurse Practitioner Family; Visit Provider Physician Assistant | DX: Z09 Encounter for follow-up examination after completed treatment for conditions other than malignant neoplasm (principal); I26.99 Other pulmonary embolism without acute cor pulmonale; I95.1 Orthostatic hypotension; D63.8 Anemia in other chronic diseases classified elsewhere | CPT/HCPCS: 99212 ==